=== PATIENT | male | born 1955 | race Caucasian/White ===

== ENCOUNTER 2017-04-08 11:40 | Inpatient (IN) | payer BC ==
[~2017-04-08] VITALS: Ht 167.6 cm; Wt 63.7 kg
[2017-04-08 11:35] VITALS: BP 115/80
--- NOTE | 2017-04-08 14:32 | Occupational Therapy Eval ---
OT Evaluation-General/PLF Medical Diagnosis Admission Date Apr 08, 2017 at 11:40 Medical Diagnosis: critical illness Onset Date: Feb 11, 2017 Therapy Diagnosis Therapy Diagnosis: Decr ADL, decr activ kris, weakness, decr funct mobility, decr R UE use Precautions Precautions/Isolations: Contact Isolation Referral Physician: Zach Referral Reason: Evaluation/Treatment Medical History Pertinent Medical History: Alcoholism, COPD, CVA, Smoking Additional Medical History Stroke at 29 years old, chronic back pain, skin graft R arm in 1999 Current History AAA with peritonitis, colitis, sepsis, short bowel syndrome, L hemicolectomy, sacroiliitis, anemia, encephalopathy, confusion. Coccyx pressure wound, hx wound vac midline abdomen Reviewed History: Yes Social History Home: Multilevel Current Living Status: Spouse ADL-Prior Level of Function ADL PLOF Comments Pt reported that he was independent with all his basic self care needs prior to illness. he also did work around the house and outside and still drive. 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 Pain reported 4/10 in tailbone area , not described Appearance Alert, cooperative Mental Status/Objective Attachments: Colostomy/Ileostomy, Marquez Catheter Current Glasses/Contacts: Yes Hearing Aids: No Dentures/Partials: Yes Hand Dominance: Right Upper Extremity ROM Bilat AROM grossly WFL Upper Extremity Coordination Impaired R hand Upper Extremity Sensation Pt reported numbness R hand, more so in ring and little fingers Upper Extremity Strength Grossly 4/5 L UE. R UE 4-/5 grossly Edema: No UE edema observed ADL-Treatment ADL-Current Pt was able to transition from supine to sit EOB with SBA but struggled a little to get feet back into bed to supine. Helped with pulling himself up in bed but assist provided to help decrease shear on bottom. He has a colostomy so will not need to do toilet transfer for BMs. he also has a Marquez catheter but hopes it will come out soon. Functional [place] Measure 0=Not Assessed/NA 4=Minimal Assistance 1=Total Assistance 5=Supervision or Setup 2=Maximal Assistance 6=Modified [place] 3=Moderate Assistance 7=Complete IndependenceIRFPAI Quality Coding Scale 6 Independent with activity with or without an assistive device 5 Patient requires set up or clean up by helper. Patient completes activity by themselves 4 Supervision or touching assist (CGA). [place] provide cues , steadying assist 3 The helper provides less than half the effort to complete the activity 2 The helper provides more than half the effort to complete the activity 1 Dependent. The helper does all the effort to complete an activity 7 Patient refused to complete or attempt activity 9 The patient did not perform the activity before the current illness or injury 88 Not attempted due to Medical conditions or safety concerns Eating (FIM): 5 (Pt reported that he has been able to feed himself. He occasionally needs a little help opening packages. he has dentures and needs them to eat some foods. ) Eating (QC): 5 (setup) On/Off Footwear (QC): 3 (He was able to pull slipper socks off but unable to don them or shoes. ) Pt reported that he had already bathed this morning and had clean clothes on. Pt left up in bed, 4 rails up, all needs met. Education OT Patient Education: Purpose of tx/functional activities, Rehab process, Transfer techniques Teaching Recipient: Patient, Family Teaching Methods: Discussion Response to Teaching: Verbalize Understanding OT Short Term Goals Short Term Goals Time Frame: Apr 15, 2017 Grooming(FIM): 5 Lower Body Dressing(FIM): 4 1=Demonstrate adherence to instructed precautions during ADL tasks. 2=Patient will verbalize/demonstrate understanding of assistive devices/ modifications for ADL. 3=Patient will improve strength/tolerance for activity to enable patient to perform ADL's. OT Senior Care Goals Warehouse Unloader Goals Time Frame: May 01, 2017 Eating (FIM): 6 Eating (QC): 6 Groomin Oral Hygiene (QC): 6 Bathing(FIM): 6 Shower/Bathe Self (QC): 6 Upper Body Dressing(FIM): 6 Upper Body Dressing (QC): 6 Lower Body Dressing(FIM): 6 Lower Body Dressing (QC): 6 On/Off Footwear (QC): 6 Toileting(FIM): 6 Toileting Hygiene (QC): 6 Toilet/Commode Transfer(FIM): 6 Toilet/Commode Transfer (QC): 6 Shower Transfer(FIM): 6 Additional Goals: 1-Demonstrate ADL Tasks, 2-Verbalize Understanding, 3- ImproveStrength/Lidia 1=Demonstrate adherence to instructed precautions during ADL tasks. 2=Patient will verbalize/demonstrate understanding of assistive devices/ modifications for ADL. 3=Patient will improve strength/tolerance for activity to enable patient to perform ADL's. OT Education/Plan Problem List/Assessment Assessment: Decreased Activ Tolerance, Decreased UE Strength, Dependent Transfers, Impaired Bed Mobility, Impaired Coordination, Impaired Funct Balance , Impaired Self-Care Skills, Restricted Funct UE ROM Pt would benefit from skilled OT to increase his independence in basic self care to allow him to safely return to his home to live with his and to decrease caregiver burden after multiple surgeries and medical conditions. Discharge Recommendations Plan/Recommendations: Continue POC Treatment Plan/Plan of Care Treatment,Training & Education: Yes Patient would benefit from OT for education, treatment and training to promote independence in ADL's, mobility, safety and/or upper extremity function for ADL' s. Plan of Care: ADL Retraining, Caregiver Training, Functional Mobility, Group Exercise/Act as Ind (education, exercise, funct activities, activ tolerance, funct mobility, sociallization), UE Funct Exercise/Act, UE Neuromus Re-Ed/Coord Treatment Duration: May 01, 2017 Frequency: At least 5 of 7 days/Wk (IRF) Estimated Hrs Per Day: 1.5 hours per day Agreement: Yes Rehab Potential: Good Time/GCodes Start Time: 13:15 Stop Time: 13:55 Total Time Billed (hr/min): 40 Billed Treatment Time visit, 30 minutes evaluation high intensity, 10 minutes ADL ZOE STAPLETON OT Apr 08, 2017 14:32
--- NOTE | 2017-04-08 14:55 | PM&R Post Admission Assessment ---
Post Admission Physician Asses The preadmission screen agrees with the post admission assessment that the patient is a good candidate for inpatient rehabilitation. The patient will have a comprehensive program of inpatient rehabilitation with a goal of maximizing level of functional independence prior to discharge home with spouse. The patient will have PT/OT ninety minutes per day, each discipline, five days a week for 2 weeks for gait, strengthening, conditioning , balance, ADLs, any patient/family/caregiver training as necessary. Speech therapy to do cognitive assessment and treat as indicated. Rehabilitation nursing to assist with bowel, bladder, skin, wound care, medication administration, pain management colostomy care. Pond Worker to assist with discharge planning, community reentry. SCD's for DVT prophylaxis. He appears to be well motivated to participate in three hours of therapy a day. He should be able to tolerate three hours of therapy a day from a medical and surgical standpoint. He should benefit from the three hours of therapy a day. He has a reasonable discharge plan, reasonable discharge rehabilitation goals and a supportive family. He has various comorbidities that need to be closely monitored with medications and treatments adjusted on a daily basis as needed. These include: Wound care Barriers to discharge for this patient who had been independent prior to this are for him to be modified independent to supervision for ADLs and mobility skills prior to discharge home with spouse, so as to lessen the burden of the caregivers. Risks for this patient include: 1. Fall 2. Fracture 3. DVT 4. Pulmonary embolism 5. Wound infection 6. Skin breakdown 7. Contractures 8. Poorly controlled pain 9. Urinary retention 10. UTI 11. Respiratory infection 12. Aspiration Estimated Length of Stay: 17 days Prognosis: Rehab prognosis appears good for goal of discharge home with spouse modified independent to supervision for ADLs and mobility skills. LEISA GEORGE MD Apr 08, 2017 14:55
--- NOTE | 2017-04-08 14:56 | ST Cognitive Linguistic Eval ---
Speech Evaluation-General Medical Diagnosis encephalopathy Onset Date: Feb 11, 2017 Therapy Diagnosis Therapy Diagnosis: Mild Cognitive Impairment/Confusion Precautions Precautions/Isolations: Contact Isolation Referral Referring Physician: Dr. Melchor Serrano Reason for Referral: Evaluation/Treatment Cognitive Evaluation Medical History Pertinent Medical History: Alcoholism, COPD, CVA, Smoking Speech PLF-Current Status Prior Level of Function The patient stated he experienced mild word-finding difficulties prior to his hospitalization, however, believes his word finding difficulties may be worsening. Subjective The patient was recently admitted to [facility] following an aortic aneurysm. The patient greeted the clinician appropriately and was agreeable to participation in the cognitive evaluation. The patient's was present at bedside. Language Eval: Auditory Comprehends Simple Yes/No Ques: Functional Indent/Objects Multiple Brown: Functional Ident/Pics in Multiple Brown: Functional Follows 1-Step Commands: Mild Follows Complex Directions: Mild Follows General Conversations: Mild Language Eval: Verbal Language Completes Spontaneous Greeting: Functional Produces Auto, Serial Info: Functional Imitates Simple Words/Phrases: Functional Word Finding: Moderate Requests Basic Needs: Mild States Basic Personal Info: Mild Expresses Complex Ideas: Moderate Cognitive Patient Orientation The patient was independently oriented to self, location, month, day of week, date, and year. Objective Cognitive Domain Attention: Mild Memory: Mild Problem Solving: Mild Objective Impression The patient displayed mild cognitive impairments, most notably in attention, memory, and orientation. Communication/Social Cognition Comprehension: 3 Expression: 4 Social Interaction: 3 Problem Solvin Memory: 3 Speech Patient Assess Expression of Ideas/Wants: Exhibits (3) Understanding [place] Content: Usually Understands (3) Brief Interview-Mental Status: Yes Repetition of Three Words: Three (3) Temporal Orientation: Year: Correct (3) Temporal Orientation: Month: Accurate within 5 days(2) Temporal Orientation: Day: Correct (1) Recall : Wear to say "Sock": Yes,after cueing (1) Recall : Color: Yes, no cue required (2) Recall : Bed: Yes, no cue required (2) Speech Short Term Goals Short Term Goals Short Term Goals 1. The patient will demonstrate 80% accuracy with structured word-finding tasks. 2. The patient will display 90% accuracy with functional safety problem solving. 3. The patient will recall and demonstrate three functional memory strategies, independently. Time Frame-STG: One Week Speech Assisted Goals Assisted Goals 1. The patient will improve cognitive linguistic function for increased function and safety with ADL's in the least restrictive setting. Time Frame: Two Weeks Comprehension: 4 Expression: 5 Social Interaction: 4 Problem Solvin Memory: 4 Speech-Plan Treatment Plan Speech Therapy Treatment Plan: Continue Plan of Care Continue skilled speech pathology to target functional safety problem solving, recall of orientation information, and word-finding strategies. Treatment Duration: Apr 22, 2017 Frequency: Modified Program (IRF) (Four to five times per week) Estimated Hrs Per Day: .5 hour per day Rehab Potential: Good Safety Risks/Education Teaching Recipient: Patient Teaching Methods: Discussion Response to Teaching: Verbalize Understanding Education Topics Provided: Results, Recommendations, Plan of Care Time Speech Therapy Time In: 13:55 Speech Therapy Time Out: 14:10 Total Billed Time: 15 Billed Treatment Time 1, KATIANA POP Apr 08, 2017 14:56
[2017-04-08] MEDS ORDERED: inSUlin ASPART (NovoLOG) 1 UNIT/0.01 ML (CHARGE PER UNIT) SC SCH (15:00)
--- NOTE | 2017-04-08 15:39 | Physical Therapy Evaluation ---
PT Evaluation-General Medical Diagnosis Admission Date Apr 08, 2017 at 11:40 Medical Diagnosis: encephalopathy Onset Date: Feb 11, 2017 Therapy Diagnosis Therapy Diagnosis: impaired mobility, strength, enduarnce Precautions Precautions/Isolations: Contact Isolation Referral Physician: Zach Reason for Referral: Evaluation/Treatment Medical History Pertinent Medical History: Alcoholism, COPD, CVA, Smoking Additional Medical History right arm weakness, chronic back pain, dissecting AAA, right lower extremity weakness, delirium, septic shock, ischemic colitis, anasarca, volume overload, surg (AAA, colostomy, partial colectomy and left anastomosis, left hemicolectomy , SBR, appendectomy, skin graft) Reviewed History: Yes Social History Home: Multilevel Current Living Status: Spouse Entry Into Home: Stairs With Railing Patient lives with his , he has a downstairs at his home but doesn't have to use it. Patient has a very small step to enter his home. Prior/Core FIM Prior Level of Function Functional [place] Measure 0=Not Assessed/NA 4=Minimal Assistance 1=Total Assistance 5=Supervision or Setup 2=Maximal Assistance 6=Modified [place] 3=Moderate Assistance 7=Complete [place] Bed Mobility: 7 Transfers (B,C,W/C) (FIM): 7 Gait: 7 PT Evaluation-Current Subjective Patient in bed pre tx, agrees to PT, states that he has 8/10 pain in his bottom where he has a wound. Pt/Family Goals to be independent at home Objective Patient Orientation: Person, Place, Situation ROM/Strength ROM Lower Extremities WNL. Patient has decreased dorsiflexion bilaterally but is able to achieve neutral. Strenght Lower Extremities right lower extremity (hip flexion 2/5, knee flexion 2/5, knee extension 2/5, dorsiflexion 0/5), left lower extremity (hip flexion 3-/5, knee flexion 3/5, knee extension 3-/5, dorsiflexion 3/5) Integumentary/Posture Bladder Incontinence: Marquez Cath Neuromuscular (Tone, Coordination, Reflexes) NT Sensory Vision: Functional Hearing: Functional Sensation Right Lower Extremit: Intact Sensation Left Lower Extremity: Intact Sensation Lower Extremities Patient seems to have intact light touch sensation bilaterally in lower extremities but he says he has decreased sensation in his right leg below the knee. Transfers Functional [place] Measure 0=Not Assessed/NA 4=Minimal Assistance 1=Total Assistance 5=Supervision or Setup 2=Maximal Assistance 6=Modified [place] 3=Moderate Assistance 7=Complete IndependenceIRFPAI Quality Coding Scale 6 Independent with activity with or without an assistive device 5 Patient requires set up or clean up by helper. Patient completes activity by themselves 4 Supervision or touching assist (CGA). [place] provide cues , steadying assist 3 The helper provides less than half the effort to complete the activity 2 The helper provides more than half the effort to complete the activity 1 Dependent. The helper does all the effort to complete an activity 7 Patient refused to complete or attempt activity 9 The patient did not perform the activity before the current illness or injury 88 Not attempted due to Medical conditions or safety concerns Transfers (B, C, W/C) (FIM): 2 Scootin Rollin Roll Left to Right (QC): 4 Supine to/from Sit: 5 Sit to/from Stand: 2 bed t/f WC(FIM only if WC use): 2 Sit to Lying (QC): 4 Lying to Sitting/Side of Bed(Q: 4 Sit to Stand (QC): 2 Chair/Yif-rx-Sxsmj Xfer(QC): 2 Patient performs bed mobility with SBA, sit to stand and stand pivot transfer are max assist. Gait Does the Patient Walk?: Yes Mode of Locomotion: Walk Anticipated Mode of Locomotion: Walk Gait (FIM): 1 Walk 10 feet (QC): 88 Walk 50 ft with 2 Turns(QC): 88 Walk 150 ft (QC): 88 Walking 10ft/uneven surface-QC: 88 Distance: 2' Gait Level of Assist: 2 Gait Persons Needed: 1 Gait Assistive Device: Parallel Bars Comments/Gait Description Patient ambulated 2' in the parallel bars with max assist, needs assist to help slide his right foot forward. Wheelchair Training Does the Pt Use a Wheelchair?: Yes Wheelchair (FIM): 4 Distance: 150' Wheelchair Level of Assist: 4 Wheel 50 ft with 2 turns (QC): 3 Wheel 150 ft (QC): 3 Type of Wheelchair: Manual min assist to help around obstacles Stairs If not tested on admit;explain Patient is not able to perform stairs due to lower extremity weakness. Balance Sitting Static: Fair Sitting Dynamic: Fair Standing Static: Poor Standing Dynamic: Poor Picking up an Object (QC): 88 Treatment After evaluation PT co-treated with OT. OT worked on UE positioning during standing, transfers, and sitting balance. PT worked on standing and walking in parallel bars, sitting balance while OT worked with cones in balance, transfers. Assessment/Needs Patient has weakness, impaired mobility, and endurance after lengthy hospital stay. Rehab Potential: Fair PT Short Term Goals Short Term Goals Time Frame: Apr 15, 2017 Transfers (B,C,W/C) (FIM): 3 Gait (FIM): 1 Gait Distance Comment: 10' Gait Level of Assist: 4 Gait Assistive Device: FWW PT Occupational Therapy Co Director Goals Occupational Therapy Co Director Goals PT [facility] Goals Time Frame: Apr 29, 2017 Transfers (B,C,W/C) (FIM): 4 Sit to Lying (QC): 6 Lying-Sitting on Side/Bed(QC): 6 Sit to Stand (QC): 3 Rollin Roll Left to Right (QC): 6 Chair/Pbw-df-Ewvhc Xfer(QC): 3 Car Transfer (QC): 3 Gait (FIM): 1 Distance: 25' Walk 10 feet (QC): 4 Walk 10ft-Uneven Surface(QC): 4 Walk 50ft with 2 Turns (QC): 88 Walk 150 ft (QC): 88 Gait Level of Assist: 4 Gait Assistive Device: FWW Stairs (FIM): 1 # of Steps: 1 1 Step (curb) (QC): 4 PT Plan Problem List Problem List: Activity Tolerance, Functional Strength, Safety, Balance, Gait, Transfer, Bed Mobility, ROM Treatment/Plan Treatment Plan: Continue Plan of Care Treatment Plan: Bed Mobility, Concurrent Therapy, Education, Functional Activity Lidia, Functional Strength, Group Therapy, Gait, Safety, Therapeutic Exercise, Transfers Treatment Duration: Apr 29, 2017 Frequency: At least 5 of 7 days/Wk (IRF) Estimated Hrs Per Day: 1.5 hours per day Patient and/or Family Agrees t: Yes Safety Risks/Education Patient Education: Gait Training, Transfer Techniques, Correct Positioning, W/ C Management, Safety Issues Teaching Recipient: Patient Teaching Methods: Demonstration, Discussion Response to Teaching: Reinforcement Needed Discharge Recommendations Plan Patient will perform bed mobility and transfer training, balance and endurance training, functional strengthening, stair training, gait training, and education , to improve functional mobility and independence at home. Therapy D/C Recommendations: Home w/ Family Support Time/GCodes Time In: 1410 Time Out: 1525 Total Billed Treatment Time: 75 Total Billed Treatment 1 visit EVM 20' WCH 10' NM 15' EX 10' FA 20 Co-treated with OT from [id number] YARIEL GRUBER PT Apr 08, 2017 15:39
--- NOTE | 2017-04-08 15:50 | Occupational Ther Daily Note ---
OT Current Status-Daily Note Subjective Pt seen in gym, agreeable to OT. Pain reported 8/10 in bottom at end of tx, not described. Mental Status/Objective Functional [place] Measure 0=Not Assessed/NA 4=Minimal Assistance 1=Total Assistance 5=Supervision or Setup 2=Maximal Assistance 6=Modified [place] 3=Moderate Assistance 7=Complete [place] ADL-Treatment Functional [place] Measure 0=Not Assessed/NA 4=Minimal Assistance 1=Total Assistance 5=Supervision or Setup 2=Maximal Assistance 6=Modified [place] 3=Moderate Assistance 7=Complete IndependenceIRFPAI Quality Coding Scale 6 Independent with activity with or without an assistive device 5 Patient requires set up or clean up by helper. Patient completes activity by themselves 4 Supervision or touching assist (CGA). [place] provide cues , steadying assist 3 The helper provides less than half the effort to complete the activity 2 The helper provides more than half the effort to complete the activity 1 Dependent. The helper does all the effort to complete an activity 7 Patient refused to complete or attempt activity 9 The patient did not perform the activity before the current illness or injury 88 Not attempted due to Medical conditions or safety concerns Other Treatment co-tx with PT, with OT focusing on UE use and function and PT focusing on LE and transfers. Pt very fatigued and reported he was a 3 pack a day smoker. Decreased activity tolerance and frequent recovery periods needed. pt unable to lock brake on R side of w/c but can do L side brake. Assist with hand placement for transfers. UEs helped a lot with sit to stand and standing in parallel bars. Pt also seated EOB on tx table, using UEs to help with sitting balance. Pt supported balance while OT worked with reaching and using UEs. More difficulty with gross grasp R hand and with some incoordination. Oxyacetylene Burner strength tested: R 27, 26, 26#. L 40, 37, 41#. Pt helped propel self back to room. transferred mod assist w/c to bed, with reaching with R UE for bed. Pt needed a little help to get legs into bed due to pain on bottom. pt left propped on his R side, offloading bottom, supported with pillows, 4 rails up, all needs met. Education OT Patient Education: Modified ADL techniques, Progress toward Goal/Update tx plan, Purpose of tx/functional activities, Rehab process, Transfer techniques Teaching Recipient: Patient Teaching Methods: Demonstration Response to Teaching: Verbalize Understanding, Return Demonstration, Reinforcement Needed OT Short Term Goals Short Term Goals Time Frame: Apr 15, 2017 Grooming(FIM): 5 Lower Body Dressing(FIM): 4 1=Demonstrate adherence to instructed precautions during ADL tasks. 2=Patient will verbalize/demonstrate understanding of assistive devices/ modifications for ADL. 3=Patient will improve strength/tolerance for activity to enable patient to perform ADL's. OT Assisted Goals [employer] Bpm Developer Goals Time Frame: May 01, 2017 Eating (FIM): 6 Eating (QC): 6 Groomin Oral Hygiene (QC): 6 Bathing(FIM): 6 Shower/Bathe Self (QC): 6 Upper Body Dressing(FIM): 6 Upper Body Dressing (QC): 6 Lower Body Dressing(FIM): 6 Lower Body Dressing (QC): 6 On/Off Footwear (QC): 6 Toileting(FIM): 6 Toileting Hygiene (QC): 6 Toilet/Commode Transfer(FIM): 6 Toilet/Commode Transfer (QC): 6 Shower Transfer(FIM): 6 Comprehension(FIM): 4 Expression (FIM): 5 Social Interaction(FIM): 4 Problem Solving(FIM): 4 Memory(FIM): 4 Additional Goals: 1-Demonstrate ADL Tasks, 2-Verbalize Understanding, 3- ImproveStrength/Lidia 1=Demonstrate adherence to instructed precautions during ADL tasks. 2=Patient will verbalize/demonstrate understanding of assistive devices/ modifications for ADL. 3=Patient will improve strength/tolerance for activity to enable patient to perform ADL's. OT Education/Plan Problem List/Assessment Pt would benefit from skilled OT to increase his independence in basic self care to allow him to safely return to his home to live with his and to decrease caregiver burden after multiple surgeries and medical conditions. Discharge Recommendations Plan/Recommendations: Continue POC Treatment Plan/Plan of Care Patient would benefit from OT for education, treatment and training to promote independence in ADL's, mobility, safety and/or upper extremity function for ADL' s. Plan of Care: ADL Retraining, Caregiver Training, Functional Mobility, Group Exercise/Act as Ind (education, exercise, funct activities, activ tolerance, funct mobility, sociallization), UE Funct Exercise/Act, UE Neuromus Re-Ed/Coord Treatment Duration: May 01, 2017 Frequency: At least 5 of 7 days/Wk (IRF) Estimated Hrs Per Day: 1.5 hours per day Agreement: Yes Rehab Potential: Good Time/GCodes Start Time: 14:30 Stop Time: 15:25 Total Time Billed (hr/min): 55 Billed Treatment Time visit, 55 minutes functional activity, co-tx with PT ZOE STAPLETON OT Apr 08, 2017 15:50
[2017-04-08] MEDS: fentaNYL PATCH 50 MCG (DURAGESIC) TD SCH (16:59)
[2017-04-08] MEDS: MAGNESIUM OXIDE (MAG-OX)400 MG TAB PO SCH (17:01)
[2017-04-08] MEDS: HYDROcodone/APAP 10 MG/325 MG (LORTAB) TAB PO PRN (17:01)
--- NOTE | 2017-04-08 17:02 | HISTORY AND PHYSICAL ---
DATE OF SERVICE: CHIEF COMPLAINT: Difficulty with walking. HISTORY OF PRESENT ILLNESS: The patient is a 61-year-old male, who has been independent, who was life flighted to [facility] in [place] from [place] where he presented with severe back pain secondary to a ruptured abdominal aortic aneurysm associated with hypotension. He was taken to the OR emergently for repair of the dissecting abdominal aortic aneurysm and underwent an emergent thrombectomy of the right femoral artery as well. He had a shock and acute kidney injury as a result of this. Postoperatively, he developed low grade fever with hallucinations, which was felt to be possibly due to alcohol withdrawal. He developed postop ileus and septic shock as a consequence of ischemic colitis with perforation of the left colon and he returned to the OR on 02/11/2017 for exploratory laparotomy and lysis of adhesions, resection of the distal jejunum approximately an ileum with left hemicolectomy and low anterior resection of the rectum with mobilization of the splenic flexure and placement of the abdominal wound VAC. He went on to have revision surgery with creation of the end-colostomy. The patient is now referred to inpatient rehabilitation unit due to a decline in functional independence. He lives in [place] with his spouse currently requires assistance for his ADLs and mobility skills. PAST MEDICAL HISTORY: Tobacco use and alcohol use.Stroke at age 29 with minimal residual rt sided weakness PAST SURGICAL HISTORY: As per above. ALLERGIES: PENICILLIN. FAMILY HISTORY: Noncontributory. 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 MEDICATIONS: Fentanyl patch 50 mcg daily, Depakote 250 mg p.o. b.i.d., Fluconazole 200 mg p.o. daily for 5 days, furosemide 20 mg p.o. daily, sliding scale insulin regimen, Mag ox 800 mg p.o. b.i.d., Meloxicam 15 mg p.o. daily, Remeron 15 mg p.o. daily, multivitamin 1 tablet p.o. daily, Protonix 1 tablet 40 mg p.o. daily, hydrocodone/APAP 10/325 1 tablet p.o. q.4 hours p.r.n. pain and Zanaflex 4 mg p.o. q.6 h. p.r.n. spasm. PHYSICAL EXAMINATION: GENERAL: Significant for a male appearing his stated age, alert and oriented, in no acute distress. VITAL SIGNS: BP 94/53 Pulse 101 RR 18 02 sats 92% on RA. He is afebrile. HEENT: Vision, speech and hearing grossly intact. No oral lesion is noted. NECK: Supple without mass. HEART: Regular rhythm. LUNGS: Clear. ABDOMEN: Colostomy functioning.Postop wounds healing EXTREMITIES: No lymphedema, no calf tenderness. MUSCULOSKELETAL: The patient has functional passive range of motion in all 4 extremities. NEUROLOGIC: The patient reports some tingling in rt arm and leg. Strength is 0 /5 rt dorsiflexor 2/5 otherwise.Strength Left hip flex and knee ext 3-/5,knee flex na d ankle dorsiflex 3/5 Good minus in the left upper limb and 3+/5 Rt upper limb. Cognition is grossly intact. SKIN: The patient has a pressure sore over the sacrum with dressing applied and open wound abdomen IMPRESSION: 1. 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 2. Ischemic colitis secondary to septic shock, status post colostomy. 3. Borderline hypotension associated with tachycardia 4...HX of stroke at age 29 associated with residual rt sided [place] 5. Chronic back pain 6. ETOH abuse 7. Tobaccoism PLAN: The patient will have a comprehensive program of inpatient rehabilitation with a goal of maximizing level of functional independence prior to discharge home with spouse. The patient will have PT, OT 90 minutes per day in each discipline 5 days a week for gait strengthening and conditioning, balance, ADLs, any patient family caregiver training necessary, any adaptive equipment and training necessary. Speech therapy to do cognitive assessment and treat as indicated. Rehabilitation nursing to assist with bowel, bladder skin wound care, medication, advent, colostomy care. professional services consultant for discharge planning and community reentry. Consult Dr. Olmos, hospitalist service for medical management of this out of town patient. Consult Dr. Rudolph for ongoing wound care. Check admission labs ESTIMATED LENGTH OF STAY: Two to 3 weeks. PROGNOSIS: The prognosis appears good with goals of discharging home with spouse modified independent to supervision for ADLs, mobility skills. DIET: Regular with Ensure t.i.d. CODE STATUS: DNR. Job ID: [id number] DocumentID: [id number] Dictated Date: 04/08/2017 14:52:17 Sticker Operator Date: 04/08/2017 17:02:02 Dictated By: LEISA GEORGE MD MTDD
[2017-04-08 19:10] VITALS: BP 95/56
[2017-04-08] MEDS: DIVALPROEX 250 MG DELAYED RELEASE (DEPAKOTE) TAB PO SCH (20:37)
[2017-04-08] MEDS: MIRTAZAPINE 15 MG (REMERON) TAB PO SCH (20:37)
[2017-04-08] MEDS: DAKIN'S 1/4 STRENGTH (0.125%) 473 ML BTL TOP SCH (21:00)
--- NOTE | 2017-04-08 22:05 | Wound Care Progress Note ---
Subjective Subjective Subjective/Events-last exam 61 year old male with two open midline abdominal wounds and a large unstageable sacral pressure ulcer. The patient underwent repair of ruptured AAA and subsequent bowel resection for necrosis of bowel, perforation, and peritonitis. He has limited mobility of his legs. PFSH: COPD, Hx of tobacco and alcohol. Review of Systems Date Seen by Provider: Apr 08, 2017 Time Seen by Provider: 18:30 General: Fatigue Pulmonary: No Dyspnea Cardiovascular: No: Chest Pain Objective Exam Last Set of Vital Signs Vital Signs Date Time Temp Pulse Resp B/P (MAP) Pulse Ox O2 Delivery O2 Flow Rate FiO2 04/08/17 21:35 Room Air 04/08/17 19:10 99.6 99 16 95/56 96 Capillary Refill : I&O Intake and Output 04/09/17 00:00 Intake Total 750 ml Output Total 600 ml Balance 150 ml Intake Oral 750 ml Output Urine Total 300 ml Stool Total 300 ml Daily Weight Change Yes, Unsure # of pounds General: Alert, Mild Distress Lungs: Normal Air Movement (Midline upper abdomen -- 5.7 x 1.2 x 0.8 cm, 100 % slough; Midline, lower abdomen -- 4.1 x 21.) Skin: Other (Midline upper -- 5.7 x 1.2 x 0.8 cm, 100% slough; midline lower abdomen -- 4.1 x 2.0 x 2.7 cm, 50% slough, 50% granulation; sacrum -- 8.3 x 9.5 x 1.7 cm, 50% slough, 50% granulation. 2 cm Stage 1 of R hip) Assessment/Plan Assessment/Plan Assessment/Plan 1. Open surgical wound x 2, midline abdomen with necrotic bases. 2. Pressure ulcer, sacrum, unstageable. 3. Pressure ulcer, R hip, Stage 1. Plan: Low air loss mattress, frequent repositioning, Dakin's dressings to abdomen. ELIZABETH BOWDEN MD Apr 08, 2017 22:05
[2017-04-09] MEDS: DAKIN'S 1/4 STRENGTH (0.125%) 473 ML BTL TOP SCH ×3 (02:00→21:27)
[2017-04-09 05:08] VITALS: BP 124/72
[2017-04-09] MEDS: PANTOPRAZOLE 40 MG (PROTONIX) TAB PO SCH (06:20)
[2017-04-09] MEDS: MULTIVIT W/MINERALS TAB (THERAGRAN M) PO SCH (06:20)
[2017-04-09] MEDS: MAGNESIUM OXIDE (MAG-OX)400 MG TAB PO SCH ×2 (08:52→17:46)
[2017-04-09] MEDS: FUROSEMIDE 20 MG (LASIX) TAB PO SCH (08:52)
[2017-04-09] MEDS: MELOXICAM 7.5 MG (MOBIC) TABLET PO SCH (08:52)
[2017-04-09] MEDS: fluCOnazole (DIFLUCAN) 100 MG TAB PO SCH (08:52)
[2017-04-09] MEDS: DIVALPROEX 250 MG DELAYED RELEASE (DEPAKOTE) TAB PO SCH ×2 (08:52→21:27)
[2017-04-09] MEDS: HYDROcodone/APAP 10 MG/325 MG (LORTAB) TAB PO PRN ×2 (09:33→17:50)
--- NOTE | 2017-04-09 10:16 | Consultation-Hospitalist ---
HPI History of Present Illness: HPI/Chief Complaint Pt is a 61yoCM with a history of AAA rupture s/p repair with subsequent complications of ischemic colitis necessitating colostomy. He current has 2 open wounds on his abdomen for which Dr Rudolph is consulted. He has been admitted to the hospital at [facility] for roughly 2 months due to this illness and has now been admitted to rehab for rehab due to debility from this critical illness. He denies any complaints at this time and is ordering breakfast. His is at bedside who is also a MANAGER UNIT and expresses concerns about new medicines and previous issues with Lasix and hyponatremia. Otherwise no concerns and ready for rehab. Source: patient, family Date Seen 04/09/17 Attending Physician Melchor Serrano MD PCP [place],Local Physician Referring Physician Zach Date of Admission Apr 08, 2017 at 11:40 am Home Medications & Allergies Home Medications Reviewed patient Home Medication Reconciliation Form Allergies Allergies Coded Allergies Sulfa (Sulfonamide Antibiotics) (Verified Allergy, Unknown, 04/08/17) codeine (Verified Allergy, Unknown, 04/08/17) Uncoded Allergies PCn ( Allergy, Intermediate, 04/08/17) Past [id number] Hx Patient Social History Marrital Status: Smoking Status: Former Smoker (quit 2 months ago) Type Used: Cigarettes Recent Foreign Travel: No Contact w/other who traveled: No Recent Hopitalizations: Yes ([facility]) Recent Infectious Disease Expo: No Surgeries Yes (AAA rupture repair, colostomy) Respiratory Yes Neurological Yes (Encephalopathy) Genitourinary Yes (Retention, Nagel cath in place) Gastrointestinal Yes (Colostomy d/t ischemic colitis) Musculoskeletal Yes (Debility, extreme weakness) Psychosocial History of Psychiatric Problem: No Integumentary History of Skin or Integumenta: Yes (abdomen, sacrum) Skin/Integumentary Disorders: Recent Skin Changes Family Medical History Significant Family History: No Pertinent Family Hx Review of Systems Constitutional: No chills, No fever EENTM: No blurred vision, No double vision, No nose congestion, No throat pain Respiratory: No cough, No dyspnea on exertion, No short of breath Cardiovascular: No chest pain, No edema, No palpitations Gastrointestinal: No abdominal pain, No constipation, No diarrhea, No nausea, No vomiting Genitourinary: No dysuria, No frequency Musculoskeletal: No joint pain, No muscle pain Skin: No lesions, No rash Psychiatric/Neurological: Denies Headache, Denies Numbness, Denies Tingling Physical Exam Physical Exam Vital Signs Vital Sign - Last 12Hours 04/08/17 11:35 Temp 98.1 Pulse 76 Resp 20 B/P (MAP) 115/80 Pulse Ox 99 O2 Delivery Room Air Capillary Refill : General Appearance: No Apparent Distress, Thin HEENT: Moist Mucous Membranes, No Scleral Icterus (L), No Scleral Icterus (R) Neck: Non Tender, Supple Respiratory: Lungs Clear, No Respiratory Distress Cardiovascular: Regular Rate, Rhythm, No Murmur Gastrointestinal: Normal Bowel Sounds, Non Tender, Soft, Other (abd pads in place over wounds, colostomy in place with liquid stool) Genital/Rectal: Other (nagel in place with yellow urine) Extremity: Normal Capillary Refill, No Calf Tenderness, Other (muscle wasting) Neurologic/Psychiatric: Alert, Oriented x3, Normal Mood/Affect Skin: Normal Color, Warm/Dry Assessment/Plan Admission Diagnosis Debility Diagnosis/Problems Diagnosis/Problems (1) Debility Assessment & Plan: management per primary team (2) S/P AAA repair Status: Acute Assessment & Plan: Repaired in [facility] Monitor BPs with goals <130/80 (3) Colostomy in place Status: Chronic Assessment & Plan: s/p ischemic colitis Wound care as appropriate (4) Tobacco dependence Assessment & Plan: Recommended cessation (5) Pressure ulcer Status: Acute Assessment & Plan: Wound care consulted Qualifiers: Qualified Codes: L89.150 - Pressure ulcer of sacral region, unstageable Clinical Quality Measures DVT/VTE Risk/Contraindication: Risk Factor Score Per Nursin RFS Level Per Nursing on Admit: 4+=Very High EDISON CMAARILLO MD Apr 09, 2017 10:16 am
--- NOTE | 2017-04-09 10:50 | Occupational Ther Daily Note ---
OT Current Status-Daily Note Subjective Pt alert, lying in bed. Pt agree to therapy. No c/o pain. Mental Status/Objective Patient Orientation: Person, Place, Time, Situation Functional [place] Measure 0=Not Assessed/NA 4=Minimal Assistance 1=Total Assistance 5=Supervision or Setup 2=Maximal Assistance 6=Modified [place] 3=Moderate Assistance 7=Complete [place] Attachments: Marquez Catheter ADL-Treatment Pt able to go from supine to sitting EOB with min A. Max A for transfer from EOB to w/c. Pt then transferred to shower using BSC and w/c, max A. Pt then required assist to cleanse lower legs and feet. Pt able to complete all other areas with SBA using BSC. Pt then transferred to w/c with max A. Completed grooming sitting in w/c at sink by self. Pt demonstrated to hike pants over hips while lying on bed. Assistance to initiate pants over feet then can pull pants up legs. After therapy, pt lying in bed with call light/phone in reach. Nrsg present in room. Call light/phone in reach. All needs met in room. Functional [place] Measure 0=Not Assessed/NA 4=Minimal Assistance 1=Total Assistance 5=Supervision or Setup 2=Maximal Assistance 6=Modified [place] 3=Moderate Assistance 7=Complete IndependenceIRFPAI Quality Coding Scale 6 Independent with activity with or without an assistive device 5 Patient requires set up or clean up by helper. Patient completes activity by themselves 4 Supervision or touching assist (CGA). [place] provide cues , steadying assist 3 The helper provides less than half the effort to complete the activity 2 The helper provides more than half the effort to complete the activity 1 Dependent. The helper does all the effort to complete an activity 7 Patient refused to complete or attempt activity 9 The patient did not perform the activity before the current illness or injury 88 Not attempted due to Medical conditions or safety concerns Grooming (FIM): 6 Oral Hygiene (QC): 6 Bathing (FIM): 3 Bathing Location: L Arm, R Arm, L Upper Leg, R Upper Leg, Chest, Abdomen, Buttocks, Perineal Area Shower/Bathe Self (QC): 3 Upper Body (FIM): 5 (Set up then pt able to complete.) Upper Body Dressing (QC): 5 Lower Body Dressing (FIM): 3 (pt requires AE to complete lower body dressing.) Lower Body Dressing (QC): 3 On/Off Footwear (QC): 1 Transfers (B, C, W/C) (FIM): 2 Shower Transfer(FIM): 2 OT Short Term Goals Short Term Goals Time Frame: Apr 15, 2017 Grooming(FIM): 5 Lower Body Dressing(FIM): 4 Transfers (B,C,W/C) (FIM): 3 1=Demonstrate adherence to instructed precautions during ADL tasks. 2=Patient will verbalize/demonstrate understanding of assistive devices/ modifications for ADL. 3=Patient will improve strength/tolerance for activity to enable patient to perform ADL's. OT Bale Breaker Operator Goals Nursing Home Goals Time Frame: May 01, 2017 Eating (FIM): 6 Eating (QC): 6 Groomin Oral Hygiene (QC): 6 Bathing(FIM): 6 Shower/Bathe Self (QC): 6 Upper Body Dressing(FIM): 6 Upper Body Dressing (QC): 6 Lower Body Dressing(FIM): 6 Lower Body Dressing (QC): 6 On/Off Footwear (QC): 6 Toileting(FIM): 6 Toileting Hygiene (QC): 6 Toilet/Commode Transfer(FIM): 6 Toilet/Commode Transfer (QC): 6 Shower Transfer(FIM): 6 Comprehension(FIM): 4 Expression (FIM): 5 Social Interaction(FIM): 4 Problem Solving(FIM): 4 Memory(FIM): 4 Additional Goals: 1-Demonstrate ADL Tasks, 2-Verbalize Understanding, 3- ImproveStrength/Lidia 1=Demonstrate adherence to instructed precautions during ADL tasks. 2=Patient will verbalize/demonstrate understanding of assistive devices/ modifications for ADL. 3=Patient will improve strength/tolerance for activity to enable patient to perform ADL's. OT Education/Plan Problem List/Assessment Pt would benefit from skilled OT to increase his independence in basic self care to allow him to safely return to his home to live with his and to decrease caregiver burden after multiple surgeries and medical conditions. Discharge Recommendations Plan/Recommendations: Continue POC Treatment Plan/Plan of Care Patient would benefit from OT for education, treatment and training to promote independence in ADL's, mobility, safety and/or upper extremity function for ADL' s. Plan of Care: ADL Retraining, Caregiver Training, Functional Mobility, Group Exercise/Act as Ind (education, exercise, funct activities, activ tolerance, funct mobility, sociallization), UE Funct Exercise/Act, UE Neuromus Re-Ed/Coord Treatment Duration: May 01, 2017 Frequency: At least 5 of 7 days/Wk (IRF) Estimated Hrs Per Day: 1.5 hours per day Agreement: Yes Rehab Potential: Fair Time/GCodes Start Time: 08:00 Stop Time: 09:00 Total Time Billed (hr/min): 60 Billed Treatment Time 1 visit-ADL 4 (60 min) LUIS ANTONIO FOWLER Apr 09, 2017 10:50
--- NOTE | 2017-04-09 11:21 | Physical Therapy Daily Note ---
PT Daily Note-Current Subjective States that he is doing okay. Pain Numeric Pain Scale: 5-Moderate Pain Location: Soft Tissue Location Body Site: Sacrum Transfers Functional [place] Measure 0=Not Assessed/NA 4=Minimal Assistance 1=Total Assistance 5=Supervision or Setup 2=Maximal Assistance 6=Modified [place] 3=Moderate Assistance 7=Complete IndependenceIRFPAI Quality Coding Scale 6 Independent with activity with or without an assistive device 5 Patient requires set up or clean up by helper. Patient completes activity by themselves 4 Supervision or touching assist (CGA). [place] provide cues , steadying assist 3 The helper provides less than half the effort to complete the activity 2 The helper provides more than half the effort to complete the activity 1 Dependent. The helper does all the effort to complete an activity 7 Patient refused to complete or attempt activity 9 The patient did not perform the activity before the current illness or injury 88 Not attempted due to Medical conditions or safety concerns Transfers (B, C, W/C) (FIM): 3 Sit to/from Stand: 3 Bed to/from Chair: 3 Exercises Supine Ex: LE Protocol Supine Reps: 20 Seated Therapy Exercises: LE Protocol Seated Reps: 20 Assessment Current Status: Excellent Progress The patient fatigued quickly. PT Short Term Goals Short Term Goals Time Frame: Apr 15, 2017 Transfers (B,C,W/C) (FIM): 3 Gait (FIM): 1 Gait Distance Comment: 10' Gait Level of Assist: 4 Gait Assistive Device: FWW Wheelchair Distance: 150' PT Industrial Manufacturing Technician Goals Assisted Goals PT Industrial Manufacturing Technician Goals Time Frame: Apr 29, 2017 Transfers (B,C,W/C) (FIM): 4 Sit to Lying (QC): 6 Lying-Sitting on Side/Bed(QC): 6 Sit to Stand (QC): 3 Rollin Roll Left to Right (QC): 6 Chair/Lle-go-Iuwee Xfer(QC): 3 Car Transfer (QC): 3 Gait (FIM): 1 Distance: 25' Walk 10 feet (QC): 4 Walk 10ft-Uneven Surface(QC): 4 Walk 50ft with 2 Turns (QC): 88 Walk 150 ft (QC): 88 Gait Level of Assist: 4 Gait Assistive Device: FWW Stairs (FIM): 1 # of Steps: 1 1 Step (curb) (QC): 4 PT Plan Treatment/Plan Treatment Plan: Continue Plan of Care Treatment Plan: Bed Mobility, Concurrent Therapy, Education, Functional Activity Lidia, Functional Strength, Group Therapy, Gait, Safety, Therapeutic Exercise, Transfers Treatment Duration: Apr 29, 2017 Frequency: At least 5 of 7 days/Wk (IRF) Estimated Hrs Per Day: 1.5 hours per day Patient and/or Family Agrees t: Yes Time/GCodes Time In: 900 Time Out: 959 Total Billed Treatment Time: 60 Total Billed Treatment 1, EX x 45, FA x 15 ESAU SAMUEL PT Apr 09, 2017 11:21
--- NOTE | 2017-04-09 13:12 | Therapy Group Daily Note ---
Therapy Daily Group Note Patient Education Topic Other List Below (handwashing) Exercises LE Seated Exercise, UE Exercise Other/Notes Pt transported via w/c to therapy group with SBA using FWW for OT/PT group. OT/ PT group consisted of introductions (name and favorite thanksgiving food), socialization, education on handwashing, seated UE/LE exercises, and Thanksgiving Jeopardy. Pt introduced self appropriately and contributed to conversations. Pt was attentive in activities and was able to answer question. Pt was able to complete exercises well and demonstrated good AROM with UE and limited with LE. Pt sat in w/c at sink to wash hands prior to lunch. Pt transorted via w/c to [facility] to participate in thanksgiving lunch. After group, pt lying in bed with call light/phone in reach. All needs met in room. Start Time: 11:30 Stop Time: 12:30 Total Billed Treatment Time: 60 Total Billed Treatment 1 visit-LUIS ANTONIO SHERIDAN Apr 09, 2017 13:12
[2017-04-09 18:45] VITALS: BP 94/53
[2017-04-09] MEDS: MIRTAZAPINE 15 MG (REMERON) TAB PO SCH (21:27)
[2017-04-10] MEDS: HYDROcodone/APAP 10 MG/325 MG (LORTAB) TAB PO PRN ×2 (04:36→18:35)
[2017-04-10 05:00] VITALS: BP 111/63
[2017-04-10 05:24] LABS: BASOPHILS % (AUTO) 0 % (0-10); EOSINOPHILS # (AUTO) 0.3 10^3/uL (0.0-0.3); EOSINOPHILS % (AUTO) 3 % (0-10); LYMPHOCYTES # (AUTO) 1.8 X 10^3 (1.0-4.0); LYMPHOCYTES % (AUTO) 18 % (12-44); MEAN CORPUSCULAR HEMOGLOBIN 31 PG (25-34); MEAN CORPUSCULAR HGB CONC 32 G/DL (32-36); MEAN CORPUSCULAR VOLUME 98 FL (80-99); MEAN PLATELET VOLUME 9.2 FL (7.4-10.4); MONOCYTES # (AUTO) 0.9 X 10^3 (0.0-1.0); MONOCYTES % (AUTO) 9 % (0-12); NEUTROPHILS # (AUTO) 7.1 X 10^3 (1.8-7.8); NEUTROPHILS % (AUTO) 70 % (42-75); PLATELET COUNT 530 10^3/uL (130-400); RED BLOOD COUNT 2.56 10^6/uL (4.35-5.85); RED CELL DISTRIBUTION WIDTH 15.2 % (10.0-14.5)
[2017-04-10 05:33] LABS: ANION GAP 10 MMOL/L (5-14); BLOOD UREA NITROGEN 17 MG/DL (7-18); BUN/CREATININE RATIO 20; CALCIUM 9.9 MG/DL (8.5-10.1); CARBON DIOXIDE 24 MMOL/L (21-32); CHLORIDE 105 MMOL/L (98-107); CREATININE SERUM 0.87 MG/DL (0.60-1.30); GFR ESTIMATED > 60; GLUCOSE 91 MG/DL (70-105); POTASSIUM 4.6 MMOL/L (3.6-5.0); SODIUM 139 MMOL/L (135-145)
[2017-04-10] MEDS: MULTIVIT W/MINERALS TAB (THERAGRAN M) PO SCH (06:17)
[2017-04-10] MEDS: PANTOPRAZOLE 40 MG (PROTONIX) TAB PO SCH (06:17)
[2017-04-10] MEDS: DIVALPROEX 250 MG DELAYED RELEASE (DEPAKOTE) TAB PO SCH ×2 (08:51→22:21)
[2017-04-10] MEDS: MELOXICAM 7.5 MG (MOBIC) TABLET PO SCH (08:51)
[2017-04-10] MEDS: FUROSEMIDE 20 MG (LASIX) TAB PO SCH (08:51)
[2017-04-10] MEDS: MAGNESIUM OXIDE (MAG-OX)400 MG TAB PO SCH ×2 (08:51→18:35)
[2017-04-10] MEDS: fluCOnazole (DIFLUCAN) 100 MG TAB PO SCH (08:52)
[2017-04-10] MEDS: DAKIN'S 1/4 STRENGTH (0.125%) 473 ML BTL TOP SCH ×2 (09:25→22:24)
--- NOTE | 2017-04-10 09:29 | Occupational Ther Daily Note ---
OT Current Status-Daily Note Subjective Pt alert, lying in bed. Pt agreed to therapy. No c/o pain at this time. Mental Status/Objective Patient Orientation: Person, Place, Time, Situation Functional [place] Measure 0=Not Assessed/NA 4=Minimal Assistance 1=Total Assistance 5=Supervision or Setup 2=Maximal Assistance 6=Modified [place] 3=Moderate Assistance 7=Complete [place] Attachments: Colostomy/Ileostomy, Marquez Catheter ADL-Treatment Functional [place] Measure 0=Not Assessed/NA 4=Minimal Assistance 1=Total Assistance 5=Supervision or Setup 2=Maximal Assistance 6=Modified [place] 3=Moderate Assistance 7=Complete IndependenceIRFPAI Quality Coding Scale 6 Independent with activity with or without an assistive device 5 Patient requires set up or clean up by helper. Patient completes activity by themselves 4 Supervision or touching assist (CGA). [place] provide cues , steadying assist 3 The helper provides less than half the effort to complete the activity 2 The helper provides more than half the effort to complete the activity 1 Dependent. The helper does all the effort to complete an activity 7 Patient refused to complete or attempt activity 9 The patient did not perform the activity before the current illness or injury 88 Not attempted due to Medical conditions or safety concerns Eating (FIM): 7 (Pt able to complete open packages/containers by self and use regular utensils to feed self sitting on EOB) Grooming (FIM): 6 (Sitting in w/c at sink, pt able to complete by self then manuever w/c out of bathroom to sit beside bed.) Oral Hygiene (QC): 6 Bathing (FIM): 4 (Using long handle sponge, grabbar, BSC and hand held shower pt able to complete bathing after set up. Pt requires assistance to dry feet and buttocks.) Bathing Location: L Arm, R Arm, L Upper Leg, R Upper Leg, L Lower Leg ( including foot), R Lower Leg (including foot), Chest, Abdomen, Buttocks, Perineal Area Shower/Bathe Self (QC): 3 Upper Body (FIM): 5 (Pt able to complete after set up.) Upper Body Dressing (QC): 5 Lower Body Dressing (FIM): 3 (Assist to don pants and socks over feet then is able to hike pants over hips lying in bed.) Toileting (FIM): 88 Toileting Hygiene (QC): 88 Transfers (B, C, W/C) (FIM): 2 (Max A for stand pivot transfers.) Toilet/Commode Transfer (FIM): 88 Shower Transfer(FIM): 2 (Using BSC, w/c and grabbars pt is able to complete with max A.) After therapy, pt sitting on EOB eating breakfast. Nrsg notified. Call light/ phone in reach. All needs met in room. OT Short Term Goals Short Term Goals Time Frame: Apr 15, 2017 Grooming(FIM): 5 Lower Body Dressing(FIM): 4 Transfers (B,C,W/C) (FIM): 3 1=Demonstrate adherence to instructed precautions during ADL tasks. 2=Patient will verbalize/demonstrate understanding of assistive devices/ modifications for ADL. 3=Patient will improve strength/tolerance for activity to enable patient to perform ADL's. OT Longterm Goals Recruiting Associate Goals Time Frame: May 01, 2017 Eating (FIM): 6 Eating (QC): 6 Groomin Oral Hygiene (QC): 6 Bathing(FIM): 6 Shower/Bathe Self (QC): 6 Upper Body Dressing(FIM): 6 Upper Body Dressing (QC): 6 Lower Body Dressing(FIM): 6 Lower Body Dressing (QC): 6 On/Off Footwear (QC): 6 Toileting(FIM): 6 Toileting Hygiene (QC): 6 Toilet/Commode Transfer(FIM): 6 Toilet/Commode Transfer (QC): 6 Shower Transfer(FIM): 6 Comprehension(FIM): 4 Expression (FIM): 5 Social Interaction(FIM): 4 Problem Solving(FIM): 4 Memory(FIM): 4 Additional Goals: 1-Demonstrate ADL Tasks, 2-Verbalize Understanding, 3- ImproveStrength/Lidia 1=Demonstrate adherence to instructed precautions during ADL tasks. 2=Patient will verbalize/demonstrate understanding of assistive devices/ modifications for ADL. 3=Patient will improve strength/tolerance for activity to enable patient to perform ADL's. OT Education/Plan Problem List/Assessment Pt would benefit from skilled OT to increase his independence in basic self care to allow him to safely return to his home to live with his and to decrease caregiver burden after multiple surgeries and medical conditions. Discharge Recommendations Plan/Recommendations: Continue POC Treatment Plan/Plan of Care Patient would benefit from OT for education, treatment and training to promote independence in ADL's, mobility, safety and/or upper extremity function for ADL' s. Plan of Care: ADL Retraining, Caregiver Training, Functional Mobility, Group Exercise/Act as Ind (education, exercise, funct activities, activ tolerance, funct mobility, sociallization), UE Funct Exercise/Act, UE Neuromus Re-Ed/Coord Treatment Duration: May 01, 2017 Frequency: At least 5 of 7 days/Wk (IRF) Estimated Hrs Per Day: 1.5 hours per day Agreement: Yes Rehab Potential: Fair Time/GCodes Start Time: 07:00 Stop Time: 08:00 Total Time Billed (hr/min): 60 Billed Treatment Time 1 visit-ADL 4 (60 min) LUIS ANTONIO FOWLER Apr 10, 2017 09:29
--- NOTE | 2017-04-10 10:42 | Individualized Plan of Care ---
Individualized Plan of Care Rehab Nursing IPOC Order Admission Date Apr 08, 2017 at 11:40 Current Orders Orders General/Regular (04/08/17 Lunch) Advanced Wound Care Dressing O BID PRN (04/08/17 13:00) Admission-Acute Rehab Unit (04/08/17 14:27) Sequential Compression Device 08,20 (04/08/17 14:27) Sales Operations Manager-Inpt Rehab (04/08/17 14:27) Rehab Nursing Orders-Ipoc (04/08/17 14:27) Physical Therapy Rehab Orders (04/08/17 14:27) Occupational Therapy Rehab Ord (04/08/17 14:27) Speech Therapy Rehab Orders (04/08/17 14:27) Turn And Reposition Q2HR (04/08/17 14:27) Intake & Output ,14, (04/08/17 14:27) Precautions (Aru) (04/08/17 14:27) Weekly Weight (Lbs) WEEK (04/08/17 14:27) Consult Physician (04/08/17 14:32) Divalproex Delay Release Tab (Depakote T (04/08/17 21:00) Fentanyl Patch (Duragesic Patch) (04/08/17 15:00) Fluconazole Tablet (Diflucan Tablet) (04/09/17 09:00) Furosemide Tablet (Lasix Tablet) (04/09/17 09:00) Insulin Aspart (Novolog) (Novolog (Charg (04/08/17 15:00) Magnesium Oxide Tablet (Mag Ox Tablet) (04/08/17 18:00) Meloxicam Tablet (Mobic Tablet) (04/09/17 09:00) Mirtazapine Tablet (Remeron Tablet) (04/08/17 21:00) Therapeutic Multivitamin Tab (Vitamins, (04/09/17 07:00) Pantoprazole Tablet (Protonix Tablet) (04/09/17 07:00) Hydrocodone/Apap 10/325 Tablet (Lortab 1 (04/08/17 15:00) Tizanidine Tablet (Zanaflex Tablet) (04/08/17 15:00) Patient Visit (04/08/17 ) Speech Sound Lang Comp (04/08/17 ) Sodium Hypochlorite 0.125% Tanya (Dakin's (04/08/17 21:00) Consult Physician (04/08/17 19:01) Consult Physician (04/08/17 20:10) Edu Tobacco/Smoking Cessation .prn (04/08/17 20:36) Ambulate TID (04/08/17 20:38) Dvt/Vte Risk - Notifiy Physici (04/08/17 20:38) Sales Operations Manager-Inpt Rehab (04/08/17 21:12) Code/Resuscitation (04/08/17 21:13) Nursing Communication (Patient (04/08/17 22:50) Nursing Communication (Patient Q2HR (04/08/17 22:51) Accucheck Prn ONCE (04/09/17 08:16) Patient Visit (04/08/17 ) Pt Eval Moderate Complexity (04/08/17 ) Wheelchair Mgmt/Propulsn 15min (04/08/17 ) Ex Neuromuscular, Ea 15 Min (04/08/17 ) Exercise Therap, Ea 15 Min (04/08/17 ) Functional Activities, Ea 15 (04/08/17 ) Cbc With Automated Diff (04/10/17 06:00) Basic Metabolic Panel (04/10/17 06:00) Patient Visit (04/09/17 ) Exercise Therap, Ea 15 Min (04/09/17 ) Functional Activities, Ea 15 (04/09/17 ) Patient Visit (04/09/17 ) Rehab Nursing Orders: Bowel Program, Diseage Management, Edu in Press Rel Techn , Hydration Management, Nutrition Management, Pain Management Other Nursing Orders: Marquez catheter care Colostomy care Wound care Intensity of Therapy to be met Patient to be seen: Min.3h per day/5 of 7d PT IPOC Problem List: Activity Tolerance, Functional Strength, Safety, Balance, Gait, Transfer, Bed Mobility, ROM Treatment Plan: Continue Plan of Care Bed Mobility, Concurrent Therapy, Education, Functional Activity Lidia, Functional Strength, Group Therapy, Gait, Safety, Therapeutic Exercise, Transfers Treatment Duration: Apr 29, 2017 Frequency: At least 5 of 7 days/Wk (IRF) Estimated Hrs Per Day: 1.5 hours per day OT IPOC Problems: Decreased Activ Tolerance, Decreased UE Strength, Dependent Transfers , Impaired Bed Mobility, Impaired Coordination, Impaired Funct Balance, Impaired Self-Care Skills, Restricted Funct UE ROM OT Treatment, Training and Edu: Yes OT Problems Pt would benefit from skilled OT to increase his independence in basic self care to allow him to safely return to his home to live with his and to decrease caregiver burden after multiple surgeries and medical conditions. Plan of Care: ADL Retraining, Caregiver Training, Functional Mobility, Group Exercise/Act as Ind (education, exercise, funct activities, activ tolerance, funct mobility, sociallization), UE Funct Exercise/Act, UE Neuromus Re-Ed/Coord Treatment Duration: May 01, 2017 Frequency: At least 5 of 7 days/Wk (IRF) Estimated Hrs Per Day: 1.[address] IPOC Speech Therapy Treatment Plan: Continue Plan of Care Treatment Duration: Apr 22, 2017 Frequency: Modified Program (IRF) (Four to five times per week) Estimated Hrs Per Day: .5 hour per day Sales Operations Manager/Case Mgmt Sales Operations Manager/Case Managemen: Discharge Planning, Patient/Family Counseling Other Services: PLEASE INQUIRE L[place]MARK ABOUT DATES IF HAD FLU OR PNEUMONIA VACCINE Physician IP Medical Issues being managed closely and that require the 24 hour availability of a physician: Wound care Postop anemia associated with postop fever and borderline hypotension chronic back pain Medical Issues: DVT Prophylaxis, Falls Precautions, Fluid/Electrolyte/ Nutrition Balance, Infection Protection, Pain Management, Wound Care, Other ( List) (as per above) Brief Synthesis of Preadmission Screen, Post-Admission Evaluation, and Therapy Evaluations: 61 yo male who had been Independent and retired and living with spouse who had repair of ruptured AAA with post op complication of Ischemic colitis requiring Colostomy.Has has a decline in funtional [place] and referred to IRU for ongoing care and therapies.Currently has fever associated with tachycardia and borderline hypotension with a HGB of 7.9 Being followed by Hospitalist service.computer help desk specialist has seen patient as well.PMH significant for Chronic back pain as weell as a stroke at the age of 29. Also Tobacco and Etoh abuse. Medical Prognosis: Fair Patients family requests DNR Anticipated Length of Stay: 05/01/17 Rehab Goals Modified Independent to supervsion for adls and mobility skills Anticipated discharge destinat: Home with family and [facility] LEISA GEORGE MD Apr 10, 2017 10:42
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
--- NOTE | 2017-04-10 11:45 | Occupational Ther Daily Note ---
OT Current Status-Daily Note Subjective Pt alert, sitting in w/c. Pt agreed to therapy. Pt was very upset about his memory issues. No c/o pain at this time. Mental Status/Objective Patient Orientation: Person, Place, Time, Situation Functional [place] Measure 0=Not Assessed/NA 4=Minimal Assistance 1=Total Assistance 5=Supervision or Setup 2=Maximal Assistance 6=Modified [place] 3=Moderate Assistance 7=Complete [place] Attachments: Colostomy/Ileostomy, Marquez Catheter ADL-Treatment Functional [place] Measure 0=Not Assessed/NA 4=Minimal Assistance 1=Total Assistance 5=Supervision or Setup 2=Maximal Assistance 6=Modified [place] 3=Moderate Assistance 7=Complete IndependenceIRFPAI Quality Coding Scale 6 Independent with activity with or without an assistive device 5 Patient requires set up or clean up by helper. Patient completes activity by themselves 4 Supervision or touching assist (CGA). [place] provide cues , steadying assist 3 The helper provides less than half the effort to complete the activity 2 The helper provides more than half the effort to complete the activity 1 Dependent. The helper does all the effort to complete an activity 7 Patient refused to complete or attempt activity 9 The patient did not perform the activity before the current illness or injury 88 Not attempted due to Medical conditions or safety concerns On/Off Footwear (QC): 2 Other Treatment Introduced pt to AE for lower body dressing. Pt was educated on equipment then discussed for comprehension. Pt required assistance using AE with donning/ doffing socks and shoes. Pt had demonstrated difficulty with using AE due to decreased strength. Pt was reassured that with strengthening and use it would get easier. Pt then demonstrated ability to maneuver w/c throughout room without difficulty. After therapy, pt sitting in w/c with call light/phone in reach. All needs met in room. OT Short Term Goals Short Term Goals Time Frame: Apr 15, 2017 Grooming(FIM): 5 Lower Body Dressing(FIM): 4 Transfers (B,C,W/C) (FIM): 3 1=Demonstrate adherence to instructed precautions during ADL tasks. 2=Patient will verbalize/demonstrate understanding of assistive devices/ modifications for ADL. 3=Patient will improve strength/tolerance for activity to enable patient to perform ADL's. OT Retirement Goals Retirement Goals Time Frame: May 01, 2017 Eating (FIM): 6 Eating (QC): 6 Groomin Oral Hygiene (QC): 6 Bathing(FIM): 6 Shower/Bathe Self (QC): 6 Upper Body Dressing(FIM): 6 Upper Body Dressing (QC): 6 Lower Body Dressing(FIM): 6 Lower Body Dressing (QC): 6 On/Off Footwear (QC): 6 Toileting(FIM): 6 Toileting Hygiene (QC): 6 Toilet/Commode Transfer(FIM): 6 Toilet/Commode Transfer (QC): 6 Shower Transfer(FIM): 6 Comprehension(FIM): 4 Expression (FIM): 5 Social Interaction(FIM): 4 Problem Solving(FIM): 4 Memory(FIM): 4 Additional Goals: 1-Demonstrate ADL Tasks, 2-Verbalize Understanding, 3- ImproveStrength/Lidia 1=Demonstrate adherence to instructed precautions during ADL tasks. 2=Patient will verbalize/demonstrate understanding of assistive devices/ modifications for ADL. 3=Patient will improve strength/tolerance for activity to enable patient to perform ADL's. OT Education/Plan Problem List/Assessment Pt would benefit from skilled OT to increase his independence in basic self care to allow him to safely return to his home to live with his and to decrease caregiver burden after multiple surgeries and medical conditions. Discharge Recommendations Plan/Recommendations: Continue POC Treatment Plan/Plan of Care Patient would benefit from OT for education, treatment and training to promote independence in ADL's, mobility, safety and/or upper extremity function for ADL' s. Plan of Care: ADL Retraining, Caregiver Training, Functional Mobility, Group Exercise/Act as Ind (education, exercise, funct activities, activ tolerance, funct mobility, sociallization), UE Funct Exercise/Act, UE Neuromus Re-Ed/Coord Treatment Duration: May 01, 2017 Frequency: At least 5 of 7 days/Wk (IRF) Estimated Hrs Per Day: 1.5 hours per day Agreement: Yes Rehab Potential: Fair Time/GCodes Start Time: 11:00 Stop Time: 11:30 Total Time Billed (hr/min): 30 Billed Treatment Time 1 visit-FA 2 (30 min) LUIS ANTONIO FOWLER Apr 10, 2017 11:45
[2017-04-10] MEDS ORDERED: TIZA4TAB3 PO (12:57)
[2017-04-10] MEDS ORDERED: INSU100V16 SQ (12:57)
[2017-04-10] MEDS ORDERED: MAGN400T6 PO (12:57)
[2017-04-10] MEDS ORDERED: DIVA250T12 PO (12:57)
[2017-04-10] MEDS ORDERED: HYDR-3820 PC (12:57)
[2017-04-10] MEDS ORDERED: PANT40TA3 PO (12:57)
[2017-04-10] MEDS ORDERED: FENT1PAT9 TD (12:57)
[2017-04-10] MEDS ORDERED: MIRT15TA6 PO (12:57)
[2017-04-10] MEDS ORDERED: CHLO473M4 MM (12:57)
[2017-04-10] MEDS ORDERED: MELO7.5T46 PO (12:57)
[2017-04-10] MEDS ORDERED: FURO20TA4 PO (12:57)
[2017-04-10] MEDS ORDERED: FLUC200T5 PO (12:57)
[2017-04-10] MEDS ORDERED: MV-M1TAB2 PO (12:57)
--- NOTE | 2017-04-10 13:04 | Speech Therapy Daily Note ---
Speech Daily Progress Note Subjective Date Seen by Provider: Apr 10, 2017 Time Seen by Provider: 09:15 The patient was seated upright in bed upon entrance. The patient greeted the clinician appropriately and was agreeable to participation in the cognitive treatment session. Objective A standardized cognitive screening was completed on this date with the following results: (MOCA Version One): - Visuospatial/Executive: The patient was unable to complete trail-making or cube copying accurately. The patient was able to draw the contour of a clock and place the numbers in the accurate place, however, was unable to place the time. - Naming: The patient was able to name three of three black and white photographs. - Memory and Delayed Recall: The patient was able to recall four of five items immediately and zero of five items following a five minute delay. - Attention: The patient was able to repeat five digits forward and three digits in reverse and identify a specific letter in a string of letters. The patient was unable to complete serial seven subtraction. - Abstraction: The patient was able to state a similarity between two items. - Orientation: The patient was oriented to month, year, place, and city. The patient was not oriented to date. - Language: The patient was able to repeat two simple phrases, however, was unable to state 11 words which began with the letter "f" in one minute. - The patient displayed an overall score of +19/30 correlating to a mild to moderate cognitive impairment in the areas of memory, attention, executive function, and word finding. Assessment Assessment Current Status: Fair Progress Treatment Plan Continue Plan of Care Communication Comprehension: 3 Expression: 4 Social Cognition Social Interaction: 4 Problem Solvin Memory: 3 Speech Short Term Goals Short Term Goals Short Term Goals 1. The patient will demonstrate 80% accuracy with structured word-finding tasks. 2. The patient will display 90% accuracy with functional safety problem solving. 3. The patient will recall and demonstrate three functional memory strategies, independently. Time Frame-STG: One Week Speech Band Cutting Machine Operator Goals [place] Goals 1. The patient will improve cognitive linguistic function for increased function and safety with ADL's in the least restrictive setting. Time Frame: Two Weeks Comprehension: 4 Expression: 5 Social Interaction: 4 Problem Solvin Memory: 4 Speech-Plan Treatment Plan Speech Therapy Treatment Plan: Continue Plan of Care Continue skilled speech pathology to target functional problem solving and word- finding. Treatment Duration: Apr 22, 2017 Frequency: Modified Program (IRF) (Four to five times per week) Estimated Hrs Per Day: .5 hour per day Rehab Potential: Fair Safety Risks/Education Teaching Recipient: Patient Teaching Methods: Discussion Response to Teaching: Reinforcement Needed Education Topics Provided: Word Finding Strategies Time Speech Therapy Time In: 09:15 Speech Therapy Time Out: 09:45 Total Billed Time: 30 Billed Treatment Time 1OMEGA ELIZ[address]ETH ST Apr 10, 2017 13:04
--- NOTE | 2017-04-10 13:35 | Physical Therapy Daily Note ---
PT Daily Note-Current Subjective Pt. states he did not understand that he should use the call cuellar if he needs anything while he is sitting up. Pain Numeric Pain Scale: 0-No Pain Mental Status Attachments: Colostomy/Ileostomy, Marquez Catheter memory and problem solving issues Transfers Functional [place] Measure 0=Not Assessed/NA 4=Minimal Assistance 1=Total Assistance 5=Supervision or Setup 2=Maximal Assistance 6=Modified [place] 3=Moderate Assistance 7=Complete IndependenceIRFPAI Quality Coding Scale 6 Independent with activity with or without an assistive device 5 Patient requires set up or clean up by helper. Patient completes activity by themselves 4 Supervision or touching assist (CGA). [place] provide cues , steadying assist 3 The helper provides less than half the effort to complete the activity 2 The helper provides more than half the effort to complete the activity 1 Dependent. The helper does all the effort to complete an activity 7 Patient refused to complete or attempt activity 9 The patient did not perform the activity before the current illness or injury 88 Not attempted due to Medical conditions or safety concerns sit to supine and supine to sit Mod I, pt also pushed himself up in the bed indep Exercises Supine Ex: Bridging, Ankle pumps, Quad Set, Rolling, Scooting, Hip abd/add Supine Reps: 15 Treatments this COPRA PROCESSOR explained the scheduling in PT and rehab as well as increasing sitting times etc Assessment Current Status: Good Progress dependent for SPTs PT Short Term Goals Short Term Goals Time Frame: Apr 15, 2017 Transfers (B,C,W/C) (FIM): 3 Gait (FIM): 1 Gait Distance Comment: 10' Gait Level of Assist: 4 Gait Assistive Device: FWW Wheelchair Distance: 150' PT Specifications Writer Goals Alf Goals PT Alf Goals Time Frame: Apr 29, 2017 Transfers (B,C,W/C) (FIM): 4 Sit to Lying (QC): 6 Lying-Sitting on Side/Bed(QC): 6 Sit to Stand (QC): 3 Rollin Roll Left to Right (QC): 6 Chair/Wrv-sd-Aomwh Xfer(QC): 3 Car Transfer (QC): 3 Gait (FIM): 1 Distance: 25' Walk 10 feet (QC): 4 Walk 10ft-Uneven Surface(QC): 4 Walk 50ft with 2 Turns (QC): 88 Walk 150 ft (QC): 88 Gait Level of Assist: 4 Gait Assistive Device: FWW Stairs (FIM): 1 # of Steps: 1 1 Step (curb) (QC): 4 PT Plan Treatment/Plan Treatment Plan: Continue Plan of Care Treatment Plan: Bed Mobility, Concurrent Therapy, Education, Functional Activity Lidia, Functional Strength, Group Therapy, Gait, Safety, Therapeutic Exercise, Transfers Treatment Duration: Apr 29, 2017 Frequency: At least 5 of 7 days/Wk (IRF) Estimated Hrs Per Day: 1.5 hours per day Patient and/or Family Agrees t: Yes Safety Risks/Education Patient Education: Transfer Techniques, Correct Positioning, Disease Process, Safety Issues Teaching Recipient: Patient Teaching Methods: Demonstration, Discussion Response to Teaching: Verbalize Understanding, Return Demonstration, Reinforcement Needed Time/GCodes Time In: 1310 Time Out: 1330 Total Billed Treatment Time: 20 Total Billed Treatment 1,FA20m G Codes Necessary: MOMO Brasher COPRA PROCESSOR Apr 10, 2017 13:35
[2017-04-10 18:00] VITALS: BP 100/58
[2017-04-10 19:58] VITALS: BP 121/72
[2017-04-10] MEDS: MIRTAZAPINE 15 MG (REMERON) TAB PO SCH (22:21)
[2017-04-11 05:24] VITALS: BP 94/57
[2017-04-11] MEDS: PANTOPRAZOLE 40 MG (PROTONIX) TAB PO SCH (06:15)
[2017-04-11] MEDS: MULTIVIT W/MINERALS TAB (THERAGRAN M) PO SCH (06:15)
[2017-04-11] MEDS: MAGNESIUM OXIDE (MAG-OX)400 MG TAB PO SCH ×2 (08:57→17:21)
[2017-04-11] MEDS: fluCOnazole (DIFLUCAN) 100 MG TAB PO SCH (08:57)
[2017-04-11] MEDS: MELOXICAM 7.5 MG (MOBIC) TABLET PO SCH (08:58)
[2017-04-11] MEDS: DIVALPROEX 250 MG DELAYED RELEASE (DEPAKOTE) TAB PO SCH ×2 (08:58→20:11)
[2017-04-11] MEDS: FUROSEMIDE 20 MG (LASIX) TAB PO SCH (08:58)
[2017-04-11] MEDS: HYDROcodone/APAP 10 MG/325 MG (LORTAB) TAB PO PRN ×3 (09:02→18:58)
[2017-04-11] MEDS: DAKIN'S 1/4 STRENGTH (0.125%) 473 ML BTL TOP SCH ×2 (10:54→20:12)
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
[2017-04-11] MEDS: fentaNYL PATCH 50 MCG (DURAGESIC) TD SCH (15:02)
[2017-04-11 18:21] VITALS: BP 99/62
[2017-04-11] MEDS: MIRTAZAPINE 15 MG (REMERON) TAB PO SCH (20:11)
[2017-04-12 06:00] VITALS: BP 113/68
[2017-04-12] MEDS: MULTIVIT W/MINERALS TAB (THERAGRAN M) PO SCH (06:42)
[2017-04-12] MEDS: PANTOPRAZOLE 40 MG (PROTONIX) TAB PO SCH (06:42)
[2017-04-12] MEDS: MAGNESIUM OXIDE (MAG-OX)400 MG TAB PO SCH ×2 (08:33→17:09)
[2017-04-12] MEDS: HYDROcodone/APAP 10 MG/325 MG (LORTAB) TAB PO PRN ×3 (08:34→17:09)
[2017-04-12] MEDS: fluCOnazole (DIFLUCAN) 100 MG TAB PO SCH (08:34)
[2017-04-12] MEDS: DIVALPROEX 250 MG DELAYED RELEASE (DEPAKOTE) TAB PO SCH ×2 (08:34→20:57)
[2017-04-12] MEDS: MELOXICAM 7.5 MG (MOBIC) TABLET PO SCH (08:34)
[2017-04-12] MEDS: FUROSEMIDE 20 MG (LASIX) TAB PO SCH (08:34)
[2017-04-12] MEDS: DAKIN'S 1/4 STRENGTH (0.125%) 473 ML BTL TOP SCH ×2 (08:36→20:58)
[2017-04-12] MEDS ORDERED: NICOTINE 14 MG (NICODERM) PATCH TD ONE (12:47)
[2017-04-12] MEDS: NICOTINE 14 MG (NICODERM) PATCH TD SCH (12:59)
[2017-04-12 17:59] VITALS: BP 108/64
[2017-04-12] MEDS: MIRTAZAPINE 15 MG (REMERON) TAB PO SCH (20:57)
[2017-04-13] MEDS: HYDROcodone/APAP 10 MG/325 MG (LORTAB) TAB PO PRN ×4 (00:09→20:05)
[2017-04-13 04:23] VITALS: BP 132/74
[2017-04-13] MEDS: PANTOPRAZOLE 40 MG (PROTONIX) TAB PO SCH (06:11)
[2017-04-13] MEDS: MULTIVIT W/MINERALS TAB (THERAGRAN M) PO SCH (06:11)
--- NOTE | 2017-04-13 07:59 | Occupational Ther Daily Note ---
OT Current Status-Daily Note Subjective Pt alert, lying in bed. Pt agreed to therapy. No c/o pain. Mental Status/Objective Patient Orientation: Person, Place, Time, Situation Functional [place] Measure 0=Not Assessed/NA 4=Minimal Assistance 1=Total Assistance 5=Supervision or Setup 2=Maximal Assistance 6=Modified [place] 3=Moderate Assistance 7=Complete [place] Attachments: Colostomy/Ileostomy, Marquez Catheter ADL-Treatment With HOB raised, pt able to go from supine to sitting EOB. Pt transferred from EOB to w/c with mod A for stand pivot transfer. Pt then maneuvered w/c into bathroom to transfer to shower by self. Mod A for stand pivot transfer to shower using shower bench and grabbars. Pt stood in shower with grabbars and mod A to hike pants down over hips. Pt's R foot slid forward 4" to wall, pt stated that his toes hurt after, reported to nrsg. Pt then was able to complete shower sitting on bench using grabbar, hand held shower and long handle sponge. Pt transferred back w/c with min A then maneuvered w/c to sink and completed grooming by self. After set up, pt able to don shirt and socks ( AE). Did not don pants due to nrsg needing to change dressing on buttocks. After therapy, pt lying on bed with call light/phone in reach. All needs met in room. Functional [place] Measure 0=Not Assessed/NA 4=Minimal Assistance 1=Total Assistance 5=Supervision or Setup 2=Maximal Assistance 6=Modified [place] 3=Moderate Assistance 7=Complete IndependenceIRFPAI Quality Coding Scale 6 Independent with activity with or without an assistive device 5 Patient requires set up or clean up by helper. Patient completes activity by themselves 4 Supervision or touching assist (CGA). [place] provide cues , steadying assist 3 The helper provides less than half the effort to complete the activity 2 The helper provides more than half the effort to complete the activity 1 Dependent. The helper does all the effort to complete an activity 7 Patient refused to complete or attempt activity 9 The patient did not perform the activity before the current illness or injury 88 Not attempted due to Medical conditions or safety concerns Grooming (FIM): 6 Oral Hygiene (QC): 6 Bathing (FIM): 4 (Assist to dry buttocks and feet.) Bathing Location: L Arm, R Arm, L Upper Leg, R Upper Leg, L Lower Leg ( including foot), R Lower Leg (including foot), Chest, Abdomen, Buttocks, Perineal Area Shower/Bathe Self (QC): 3 Upper Body (FIM): 5 Upper Body Dressing (QC): 5 Transfers (B, C, W/C) (FIM): 3 Shower Transfer(FIM): 3 OT Short Term Goals Short Term Goals Time Frame: Apr 15, 2017 Grooming(FIM): 5 Lower Body Dressing(FIM): 4 Transfers (B,C,W/C) (FIM): 3 1=Demonstrate adherence to instructed precautions during ADL tasks. 2=Patient will verbalize/demonstrate understanding of assistive devices/ modifications for ADL. 3=Patient will improve strength/tolerance for activity to enable patient to perform ADL's. OT Penitentiary Goals Penitentiary Goals Time Frame: May 01, 2017 Eating (FIM): 6 Eating (QC): 6 Groomin Oral Hygiene (QC): 6 Bathing(FIM): 6 Shower/Bathe Self (QC): 6 Upper Body Dressing(FIM): 6 Upper Body Dressing (QC): 6 Lower Body Dressing(FIM): 6 Lower Body Dressing (QC): 6 On/Off Footwear (QC): 6 Toileting(FIM): 6 Toileting Hygiene (QC): 6 Toilet/Commode Transfer(FIM): 6 Toilet/Commode Transfer (QC): 6 Shower Transfer(FIM): 6 Comprehension(FIM): 4 Expression (FIM): 5 Social Interaction(FIM): 4 Problem Solving(FIM): 4 Memory(FIM): 4 Additional Goals: 1-Demonstrate ADL Tasks, 2-Verbalize Understanding, 3- ImproveStrength/Lidia 1=Demonstrate adherence to instructed precautions during ADL tasks. 2=Patient will verbalize/demonstrate understanding of assistive devices/ modifications for ADL. 3=Patient will improve strength/tolerance for activity to enable patient to perform ADL's. OT Education/Plan Problem List/Assessment Pt would benefit from skilled OT to increase his independence in basic self care to allow him to safely return to his home to live with his and to decrease caregiver burden after multiple surgeries and medical conditions. Discharge Recommendations Plan/Recommendations: Continue POC Treatment Plan/Plan of Care Patient would benefit from OT for education, treatment and training to promote independence in ADL's, mobility, safety and/or upper extremity function for ADL' s. Plan of Care: ADL Retraining, Caregiver Training, Functional Mobility, Group Exercise/Act as Ind (education, exercise, funct activities, activ tolerance, funct mobility, sociallization), UE Funct Exercise/Act, UE Neuromus Re-Ed/Coord Treatment Duration: May 01, 2017 Frequency: At least 5 of 7 days/Wk (IRF) Estimated Hrs Per Day: 1.5 hours per day Agreement: Yes Rehab Potential: Fair Time/GCodes Start Time: 07:00 Stop Time: 08:00 Total Time Billed (hr/min): 60 Billed Treatment Time 1 visit-ADL 4 (60 min) LUIS ANTONIO FOWLER Apr 13, 2017 07:59
[2017-04-13] MEDS: DIVALPROEX 250 MG DELAYED RELEASE (DEPAKOTE) TAB PO SCH ×2 (08:57→20:04)
[2017-04-13] MEDS: NICOTINE 14 MG (NICODERM) PATCH TD SCH (08:57)
[2017-04-13] MEDS: MAGNESIUM OXIDE (MAG-OX)400 MG TAB PO SCH ×2 (08:57→18:58)
[2017-04-13] MEDS: NICOTINE PATCH REMOVAL TP SCH (08:59)
[2017-04-13] MEDS: FUROSEMIDE 20 MG (LASIX) TAB PO SCH (08:59)
[2017-04-13] MEDS: MELOXICAM 7.5 MG (MOBIC) TABLET PO SCH (08:59)
[2017-04-13] MEDS: DAKIN'S 1/4 STRENGTH (0.125%) 473 ML BTL TOP SCH ×2 (09:00→20:04)
--- NOTE | 2017-04-13 10:46 | Speech Therapy Daily Note ---
Speech Daily Progress Note Subjective Date Seen by Provider: Apr 13, 2017 Time Seen by Provider: 09:00 The patient was laying in bed upon entrance. The patient greeted the clinician appropriately and was agreeable to participation in the cognitive treatment session. Objective Assessment of Language Related Activities (NA) were introduced and initiated on this date. The following are the patient's results: - Telling Time: The patient demonstrated 100% accuracy with telling time on an analog clock with mild clinician verbal cueing. - Daily Math Problems: The patient displayed moderate difficulty with solving familiar math problems. Problems included bill calculation, change calculation, time additions, and recipes. The patient displayed less than 50% accuracy. Orientation: The patient was independently oriented to month, year, day of week , and city. Assessment Assessment Current Status: Fair Progress Treatment Plan Continue Plan of Care Communication Comprehension: 4 Expression: 4 Social Cognition Social Interaction: 4 Problem Solvin Memory: 4 Speech Short Term Goals Short Term Goals Short Term Goals 1. The patient will demonstrate 80% accuracy with structured word-finding tasks. 2. The patient will display 90% accuracy with functional safety problem solving. 3. The patient will recall and demonstrate three functional memory strategies, independently. Time Frame-STG: One Week Speech Group Home Goals [employer] Supervisor Goals 1. The patient will improve cognitive linguistic function for increased function and safety with ADL's in the least restrictive setting. Time Frame: Two Weeks Comprehension: 4 Expression: 5 Social Interaction: 4 Problem Solvin Memory: 4 Speech-Plan Treatment Plan Speech Therapy Treatment Plan: Continue Plan of Care Continue skilled speech pathology to target functional problem solving and memory. Treatment Duration: Apr 22, 2017 Frequency: Modified Program (IRF) (Four to five times per week) Estimated Hrs Per Day: .5 hour per day Rehab Potential: Fair Safety Risks/Education Teaching Recipient: Patient Teaching Methods: Discussion Response to Teaching: Verbalize Understanding Education Topics Provided: Orientation Strategies Time Speech Therapy Time In: 09:00 Speech Therapy Time Out: 09:30 Total Billed Time: 30 Billed Treatment Time OMEGA Kelly ELIZABETH ST Apr 13, 2017 10:46
--- NOTE | 2017-04-13 10:48 | Physical Therapy Daily Note ---
PT Daily Note-Current Subjective Patient in bed pre tx, agrees to PT, has pain of 7/10 on his bottom. Appearance Patient BTB post tx, has nurse call, phone, tray, all needs met. Mental Status Patient Orientation: Normal For Age Attachments: Marquez Catheter Transfers Functional [place] Measure 0=Not Assessed/NA 4=Minimal Assistance 1=Total Assistance 5=Supervision or Setup 2=Maximal Assistance 6=Modified [place] 3=Moderate Assistance 7=Complete IndependenceIRFPAI Quality Coding Scale 6 Independent with activity with or without an assistive device 5 Patient requires set up or clean up by helper. Patient completes activity by themselves 4 Supervision or touching assist (CGA). [place] provide cues , steadying assist 3 The helper provides less than half the effort to complete the activity 2 The helper provides more than half the effort to complete the activity 1 Dependent. The helper does all the effort to complete an activity 7 Patient refused to complete or attempt activity 9 The patient did not perform the activity before the current illness or injury 88 Not attempted due to Medical conditions or safety concerns Transfers (B, C, W/C) (FIM): 2 Scootin Rollin Supine to/from Sit: 5 Sit to/from Stand: 2 Bed to/from Chair: 2 Patient has some difficulty with supine <-> sit but he can do it with SBA. Gait Training Gait (FIM): 1 Distance: 8'x3 Gait Level of Assist: 4 Gait Persons Needed: 1 Gait Assistive Device: FWW wheelchair follow, tends to scissor right leg and and has right foot drop. Wheelchair Training Wheelchair (FIM): 6 Distance: 150'x2 Type of Wheelchair: Manual Exercises LAQ alternating for 5 min, sit to fretted instruments inspector parallel bars 3 sets of 5 Treatments bed mobility and transfers, ambulation, functional strengthening Assessment Current Status: Good Progress good progress, patient has started walking with a walker today PT Short Term Goals Short Term Goals Time Frame: Apr 15, 2017 Transfers (B,C,W/C) (FIM): 3 Gait (FIM): 1 Gait Distance Comment: 10' Gait Level of Assist: 4 Gait Assistive Device: FWW Wheelchair Distance: 150' PT Prison Goals Prison Goals PT Prison Goals Time Frame: Apr 29, 2017 Transfers (B,C,W/C) (FIM): 4 Sit to Lying (QC): 6 Lying-Sitting on Side/Bed(QC): 6 Sit to Stand (QC): 3 Rollin Roll Left to Right (QC): 6 Chair/Mkk-lk-Lprff Xfer(QC): 3 Car Transfer (QC): 3 Gait (FIM): 1 Distance: 25' Walk 10 feet (QC): 4 Walk 10ft-Uneven Surface(QC): 4 Walk 50ft with 2 Turns (QC): 88 Walk 150 ft (QC): 88 Gait Level of Assist: 4 Gait Assistive Device: FWW Stairs (FIM): 1 # of Steps: 1 1 Step (curb) (QC): 4 PT Plan Problem List Problem List: Activity Tolerance, Functional Strength, Safety, Balance, Gait, Transfer, Bed Mobility, ROM Treatment/Plan Treatment Plan: Continue Plan of Care Treatment Plan: Bed Mobility, Concurrent Therapy, Education, Functional Activity Lidia, Functional Strength, Group Therapy, Gait, Safety, Therapeutic Exercise, Transfers Treatment Duration: Apr 29, 2017 Frequency: At least 5 of 7 days/Wk (IRF) Estimated Hrs Per Day: 1.5 hours per day Patient and/or Family Agrees t: Yes Safety Risks/Education Patient Education: Gait Training, Transfer Techniques, Correct Positioning, Safety Issues Teaching Recipient: Patient Teaching Methods: Demonstration, Discussion Response to Teaching: Reinforcement Needed Time/GCodes Time In: 945 Time Out: 1045 Total Billed Treatment Time: 60 Total Billed Treatment 1 visit [facility] 10' GT 30' EX 20'' YARIEL GRUBER PT Apr 13, 2017 10:48
--- NOTE | 2017-04-13 13:51 | Occupational Ther Daily Note ---
OT Current Status-Daily Note Subjective Pt alert, lying in bed. Pt agreed to therapy. Pt c/o pain, 8/10, reported to nrsg and nrsg gave pain meds. Mental Status/Objective Patient Orientation: Person, Place, Time, Situation Functional [place] Measure 0=Not Assessed/NA 4=Minimal Assistance 1=Total Assistance 5=Supervision or Setup 2=Maximal Assistance 6=Modified [place] 3=Moderate Assistance 7=Complete [place] ADL-Treatment Pt was able to go from supine to sitting EOB with HOB raised by self. Min A for stand pivot transfer from EOB to w/c. Pt then completed UE exercising by maneuvering w/c throughout hospital up inclines and over rough areas. Pt stated that he was fatiguing and needed a break prior to getting back to ARU. After therapy, PT took over care. All needs met in room. Functional [place] Measure 0=Not Assessed/NA 4=Minimal Assistance 1=Total Assistance 5=Supervision or Setup 2=Maximal Assistance 6=Modified [place] 3=Moderate Assistance 7=Complete IndependenceIRFPAI Quality Coding Scale 6 Independent with activity with or without an assistive device 5 Patient requires set up or clean up by helper. Patient completes activity by themselves 4 Supervision or touching assist (CGA). [place] provide cues , steadying assist 3 The helper provides less than half the effort to complete the activity 2 The helper provides more than half the effort to complete the activity 1 Dependent. The helper does all the effort to complete an activity 7 Patient refused to complete or attempt activity 9 The patient did not perform the activity before the current illness or injury 88 Not attempted due to Medical conditions or safety concerns OT Short Term Goals Short Term Goals Time Frame: Apr 15, 2017 Grooming(FIM): 5 Lower Body Dressing(FIM): 4 Transfers (B,C,W/C) (FIM): 3 1=Demonstrate adherence to instructed precautions during ADL tasks. 2=Patient will verbalize/demonstrate understanding of assistive devices/ modifications for ADL. 3=Patient will improve strength/tolerance for activity to enable patient to perform ADL's. OT Penitentiary Goals Penitentiary Goals Time Frame: May 01, 2017 Eating (FIM): 6 Eating (QC): 6 Groomin Oral Hygiene (QC): 6 Bathing(FIM): 6 Shower/Bathe Self (QC): 6 Upper Body Dressing(FIM): 6 Upper Body Dressing (QC): 6 Lower Body Dressing(FIM): 6 Lower Body Dressing (QC): 6 On/Off Footwear (QC): 6 Toileting(FIM): 6 Toileting Hygiene (QC): 6 Toilet/Commode Transfer(FIM): 6 Toilet/Commode Transfer (QC): 6 Shower Transfer(FIM): 6 Comprehension(FIM): 4 Expression (FIM): 5 Social Interaction(FIM): 4 Problem Solving(FIM): 4 Memory(FIM): 4 Additional Goals: 1-Demonstrate ADL Tasks, 2-Verbalize Understanding, 3- ImproveStrength/Lidia 1=Demonstrate adherence to instructed precautions during ADL tasks. 2=Patient will verbalize/demonstrate understanding of assistive devices/ modifications for ADL. 3=Patient will improve strength/tolerance for activity to enable patient to perform ADL's. OT Education/Plan Problem List/Assessment Pt would benefit from skilled OT to increase his independence in basic self care to allow him to safely return to his home to live with his and to decrease caregiver burden after multiple surgeries and medical conditions. Discharge Recommendations Plan/Recommendations: Continue POC Treatment Plan/Plan of Care Patient would benefit from OT for education, treatment and training to promote independence in ADL's, mobility, safety and/or upper extremity function for ADL' s. Plan of Care: ADL Retraining, Caregiver Training, Functional Mobility, Group Exercise/Act as Ind (education, exercise, funct activities, activ tolerance, funct mobility, sociallization), UE Funct Exercise/Act, UE Neuromus Re-Ed/Coord Treatment Duration: May 01, 2017 Frequency: At least 5 of 7 days/Wk (IRF) Estimated Hrs Per Day: 1.5 hours per day Agreement: Yes Rehab Potential: Fair Time/GCodes Start Time: 13:00 Stop Time: 13:30 Total Time Billed (hr/min): 30 Billed Treatment Time 1 visit-FA 1 (10 min) EX 1 (20 min) LUIS ANTONIO FOWLER Apr 13, 2017 13:51
--- NOTE | 2017-04-13 14:44 | Physical Therapy Daily Note ---
PT Daily Note-Current Subjective Agreeable to PT. reports, "I could have kissed Nikolay this morning after he helped me walk!" Pt expressed happiness that he walked with a walker this morning. Transfers Functional [place] Measure 0=Not Assessed/NA 4=Minimal Assistance 1=Total Assistance 5=Supervision or Setup 2=Maximal Assistance 6=Modified [place] 3=Moderate Assistance 7=Complete IndependenceIRFPAI Quality Coding Scale 6 Independent with activity with or without an assistive device 5 Patient requires set up or clean up by helper. Patient completes activity by themselves 4 Supervision or touching assist (CGA). [place] provide cues , steadying assist 3 The helper provides less than half the effort to complete the activity 2 The helper provides more than half the effort to complete the activity 1 Dependent. The helper does all the effort to complete an activity 7 Patient refused to complete or attempt activity 9 The patient did not perform the activity before the current illness or injury 88 Not attempted due to Medical conditions or safety concerns Sit to stand with CGA and at times needed min assist to maintain standing. SPT wheelchair to from nu step with min assist; sit to stand at FWW with min assist and min assist to steady him. Pt able to transfer sit to supine with SBA. Gait Training Pt ambulated x 8 ft with FWW with a 45 degree turn with min assist. Slow gait with narrow SOHA, scissored at times. Exercises NuStep Minutes: 12 (to Promote LE strength for functional transfers and gait.) Assessment Current Status: Good Progress Pt's strength is progressing and he is making gains towards established goals. PT Short Term Goals Short Term Goals Time Frame: Apr 15, 2017 Transfers (B,C,W/C) (FIM): 3 (met) Gait (FIM): 1 Gait Distance Comment: 10' Gait Level of Assist: 4 Gait Assistive Device: FWW Wheelchair Distance: 150'x2 PT Assisted Goals Assisted Goals PT Assisted Goals Time Frame: Apr 29, 2017 Transfers (B,C,W/C) (FIM): 4 Sit to Lying (QC): 6 Lying-Sitting on Side/Bed(QC): 6 Sit to Stand (QC): 3 Rollin Roll Left to Right (QC): 6 Chair/Acw-lr-Yyppd Xfer(QC): 3 Car Transfer (QC): 3 Gait (FIM): 1 Distance: 25' Walk 10 feet (QC): 4 Walk 10ft-Uneven Surface(QC): 4 Walk 50ft with 2 Turns (QC): 88 Walk 150 ft (QC): 88 Gait Level of Assist: 4 Gait Assistive Device: FWW Stairs (FIM): 1 # of Steps: 1 1 Step (curb) (QC): 4 PT Plan Problem List Problem List: Activity Tolerance, Functional Strength, Safety, Balance, Gait, Transfer, Bed Mobility Treatment/Plan Treatment Plan: Continue Plan of Care Treatment Plan: Bed Mobility, Concurrent Therapy, Education, Functional Activity Lidia, Functional Strength, Group Therapy, Gait, Safety, Therapeutic Exercise, Transfers Treatment Duration: Apr 29, 2017 Frequency: At least 5 of 7 days/Wk (IRF) Estimated Hrs Per Day: 1.5 hours per day Patient and/or Family Agrees t: Yes Safety Risks/Education Patient Education: Transfer Techniques Teaching Recipient: Patient Teaching Methods: Demonstration, Discussion Response to Teaching: Reinforcement Needed Discharge Recommendations Therapy D/C Recommendations: Physical Therapy Home Care Time/GCodes Time In: 1330 Time Out: 1400 Total Billed Treatment Time: 30 Total Billed Treatment vsiit FA 18 EX 12 LUIS ANTONIO RODRIGUEZ PT Apr 13, 2017 14:44
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
[2017-04-13 18:00] VITALS: BP 120/67
[2017-04-13] MEDS: MIRTAZAPINE 15 MG (REMERON) TAB PO SCH (20:04)
[2017-04-13] MEDS: ZINC OXIDE 16% OINT (BUTT PASTE) 113 GM TUBE TOP PRN (20:06)
--- NOTE | 2017-04-13 20:46 | Wound Care Progress Note ---
Subjective Subjective Subjective/Events-last exam 61 year old male with two open midline abdominal wounds and an unstageable wound of the sacral area. The wounds demonstrate a lot of slough. His care would move forward best with a VAC VeriFlo Cleanse Choice device, allowing for mechanical loosening and removal of necrotic tissue delaying healing of the patient's wounds. Arrangements will be made to provide this advanced wound treatment to this patient, who presents with complicated wounds after a harrowing clinical course. PFSH: No interval change. Review of Systems Date Seen by Provider: Apr 13, 2017 Time Seen by Provider: 18:30 General: Fatigue Pulmonary: No Dyspnea Objective Exam Last Set of Vital Signs Vital Signs Date Time Temp Pulse Resp B/P (MAP) Pulse Ox O2 Delivery O2 Flow Rate FiO2 04/13/17 18:00 99.1 107 18 120/67 99 Room Air Capillary Refill : I&O Intake and Output 04/14/17 00:00 Intake Total 900 ml Output Total 1600 ml Balance -700 ml Intake Oral 900 ml Output Urine Total 925 ml Stool Total 675 ml General: Oriented X3, Mild Distress Lungs: Normal Air Movement Skin: Other (Sup. midline abd. - 5.2 x 1.0 x 0.5 cm, 100% slough; Inf. midline abd. - 3.5 x 2.2 x 1.5 cm, 100% slough; Sacrum - 5.5 x 3.4 x 1.5 cm, 100% slough.) Assessment/Plan Assessment/Plan Assessment/Plan 1. Dehiscence of midline abdominal wound in two places, with resultant open wounds and completely necrotic bases - no evidence of fascial dehiscence at this time. 2. Sacral pressure ulcer, unstageable, present on admission. 3. Debility. Plan: Would be a candidate for VeriFlo device to address the large amount of necrotic material at the wound bases. ELIZABETH BOWDEN MD Apr 13, 2017 20:46
[2017-04-14 05:19] LABS: BASOPHILS % (AUTO) 0 % (0-10); EOSINOPHILS # (AUTO) 0.3 10^3/uL (0.0-0.3); EOSINOPHILS % (AUTO) 3 % (0-10); LYMPHOCYTES # (AUTO) 1.6 X 10^3 (1.0-4.0); LYMPHOCYTES % (AUTO) 20 % (12-44); MEAN CORPUSCULAR HEMOGLOBIN 31 PG (25-34); MEAN CORPUSCULAR HGB CONC 32 G/DL (32-36); MEAN CORPUSCULAR VOLUME 98 FL (80-99); MONOCYTES # (AUTO) 0.8 X 10^3 (0.0-1.0); MONOCYTES % (AUTO) 9 % (0-12); NEUTROPHILS # (AUTO) 5.5 X 10^3 (1.8-7.8); NEUTROPHILS % (AUTO) 67 % (42-75); PLATELET COUNT 537 10^3/uL (130-400); RED BLOOD COUNT 2.07 10^6/uL (4.35-5.85); RED CELL DISTRIBUTION WIDTH 15.2 % (10.0-14.5); WHITE BLOOD COUNT 8.2 10^3/uL (4.3-11.0)
[2017-04-14 05:27] VITALS: BP 116/70
[2017-04-14] MEDS: MULTIVIT W/MINERALS TAB (THERAGRAN M) PO SCH (06:00)
[2017-04-14] MEDS: PANTOPRAZOLE 40 MG (PROTONIX) TAB PO SCH (06:00)
[2017-04-14] MEDS: HYDROcodone/APAP 10 MG/325 MG (LORTAB) TAB PO PRN ×3 (06:03→16:30)
--- NOTE | 2017-04-14 08:05 | PM & R (SOAP) Progress Note ---
Subjective Time Seen by Provider: 08:00 Subjective/Events-last exam Patient was seen in his room this AM.Called by RN this am re HGB 6.5 Patient asymptomatic at this time-Will repat H&H to confirm and check stool for OB and contact Hospitalist re possible transfusion.Viewed sacral pressure sore and midline surgical incision sites with DR Rudolph bedside last evening.Topical care and pressure relief being provided. Review of Systems Musculoskeletal: other (sacral pain) Objective Exam Last Set of Vital Signs Vital Signs Date Time Temp Pulse Resp B/P (MAP) Pulse Ox O2 Delivery O2 Flow Rate FiO2 04/14/17 05:27 99.0 90 18 116/70 99 Room Air Capillary Refill : I&O Intake and Output 04/15/17 00:00 Intake Total 240 ml Output Total 850 ml Balance -610 ml Intake Oral 240 ml Output Urine Total 750 ml Stool Total 100 ml General: Alert, Oriented X3, Cooperative, No Acute Distress, Mild Distress HEENT: Atraumatic, PERRLA, EOMI, Mucous Memb Moist/[place] Neck: Supple, No JVD Lungs: Clear to Auscultation, Normal Air Movement (Midline upper abdomen -- 5.7 x 1.2 x 0.8 cm, 100% slough; Midline, lower abdomen -- 4.1 x 21.) Heart: Regular Rate Abdomen: Normal Bowel Sounds, Soft, No Tenderness, Other (colostomy functioning midline surgicaal sites as per dr rudolph) Skin: Other (Midline upper -- 5.7 x 1.2 x 0.8 cm, 100% slough; midline lower abdomen -- 4.1 x 2.0 x 2.7 cm, 50% slough, 50% granulation; sacrum -- 8.3 x 9.5 x 1.7 cm, 50% slough, 50% granulation. 2 cm Stage 1 of R hip) Neuro: Other (Generalized weakness) Results Lab Laboratory Tests 04/14/17 05:10: White Blood Count 8.2, Red Blood Count 2.07L, Hemoglobin 6.5*L, Hematocrit 20*L , Mean Corpuscular Volume 98, Mean Corpuscular Hemoglobin 31, Mean Corpuscular Hemoglobin Concent 32, Red Cell Distribution Width 15.2H, Platelet Count 537H, Mean Platelet Volume 9.0, Neutrophils (%) (Auto) 67, Lymphocytes (%) (Auto) 20, Monocytes (%) (Auto) 9, Eosinophils (%) (Auto) 3, Basophils (%) (Auto) 0, Neutrophils # (Auto) 5.5, Lymphocytes # (Auto) 1.6, Monocytes # (Auto) 0.8, Eosinophils # (Auto) 0.3, Basophils # (Auto) 0.0 Assessment/Plan Assessment s/p AAA repair OSH Postop ischemic colitis s/p colostomy Sacral pressure sore Postop anemia-worsening Late effects of stroke Plan Continue PT/OT/ST/wound care F/U with DR Rudolph Pain management Team Conference tomorrow 04-15-17 Recheck CBC-done will recheck H&H and check stool for OB and F/U with hospitalist re possible blood transfusion see orders. LEISA GEORGE MD Apr 14, 2017 08:05
[2017-04-14] MEDS: DIVALPROEX 250 MG DELAYED RELEASE (DEPAKOTE) TAB PO SCH ×2 (08:39→21:17)
[2017-04-14] MEDS: MELOXICAM 7.5 MG (MOBIC) TABLET PO SCH (08:39)
[2017-04-14] MEDS: FUROSEMIDE 20 MG (LASIX) TAB PO SCH (08:39)
[2017-04-14] MEDS: MAGNESIUM OXIDE (MAG-OX)400 MG TAB PO SCH ×2 (08:39→17:10)
[2017-04-14] MEDS: NICOTINE 14 MG (NICODERM) PATCH TD SCH (08:40)
[2017-04-14] MEDS: DAKIN'S 1/4 STRENGTH (0.125%) 473 ML BTL TOP SCH ×2 (08:42→21:18)
[2017-04-14] MEDS: NICOTINE PATCH REMOVAL TP SCH (08:42)
--- NOTE | 2017-04-14 10:49 | Occupational Ther Daily Note ---
OT Current Status-Daily Note Subjective Pt alert, sitting in w/c. Pt had low hemoglobin earlier this morning then risen , per nrsg. Pt agreed to therapy. C/o pain, did not rate. Mental Status/Objective Patient Orientation: Person, Place, Time, Situation Functional [place] Measure 0=Not Assessed/NA 4=Minimal Assistance 1=Total Assistance 5=Supervision or Setup 2=Maximal Assistance 6=Modified [place] 3=Moderate Assistance 7=Complete [place] Attachments: Colostomy/Ileostomy, Marquez Catheter ADL-Treatment Functional [place] Measure 0=Not Assessed/NA 4=Minimal Assistance 1=Total Assistance 5=Supervision or Setup 2=Maximal Assistance 6=Modified [place] 3=Moderate Assistance 7=Complete IndependenceIRFPAI Quality Coding Scale 6 Independent with activity with or without an assistive device 5 Patient requires set up or clean up by helper. Patient completes activity by themselves 4 Supervision or touching assist (CGA). [place] provide cues , steadying assist 3 The helper provides less than half the effort to complete the activity 2 The helper provides more than half the effort to complete the activity 1 Dependent. The helper does all the effort to complete an activity 7 Patient refused to complete or attempt activity 9 The patient did not perform the activity before the current illness or injury 88 Not attempted due to Medical conditions or safety concerns Other Treatment Pt maneuvered w/c from room to ARU by self. Completed arm bike for 15 min duration beginning at 15 vasquez resistance then decreased to 10 vasquez resistance. Pt required multiple lengthy recovery breaks during arm bike exercises. Pt then completed resistive clothespins with each hand, 1x. Theraputty task finding items to increase pincer strength. In-hand manipulation with R hand task, physical cues needed to sequence steps initially and gradually pt was able to complete on own. Home Sales Service Professional strength task 15x's each hand. [place] pino exercises without weight for B shldr AROM. Pt then requested to go lay down after therapy before PT. Pt began transfer before set up for safety, mod A for transfer. After therapy, pt lying on side with call light/ phone in reach. All needs met in room. Education OT Patient Education: Exercise program Teaching Recipient: Patient Teaching Methods: Demonstration, Discussion Response to Teaching: Return Demonstration OT Short Term Goals Short Term Goals Time Frame: Apr 15, 2017 Grooming(FIM): 5 Lower Body Dressing(FIM): 4 Transfers (B,C,W/C) (FIM): 3 (met) 1=Demonstrate adherence to instructed precautions during ADL tasks. 2=Patient will verbalize/demonstrate understanding of assistive devices/ modifications for ADL. 3=Patient will improve strength/tolerance for activity to enable patient to perform ADL's. OT Anatomy And Physiology Instructor Goals Anatomy And Physiology Instructor Goals Time Frame: May 01, 2017 Eating (FIM): 6 Eating (QC): 6 Groomin Oral Hygiene (QC): 6 Bathing(FIM): 6 Shower/Bathe Self (QC): 6 Upper Body Dressing(FIM): 6 Upper Body Dressing (QC): 6 Lower Body Dressing(FIM): 6 Lower Body Dressing (QC): 6 On/Off Footwear (QC): 6 Toileting(FIM): 6 Toileting Hygiene (QC): 6 Toilet/Commode Transfer(FIM): 6 Toilet/Commode Transfer (QC): 6 Shower Transfer(FIM): 6 Comprehension(FIM): 4 Expression (FIM): 5 Social Interaction(FIM): 4 Problem Solving(FIM): 4 Memory(FIM): 4 Additional Goals: 1-Demonstrate ADL Tasks, 2-Verbalize Understanding, 3- ImproveStrength/Lidia 1=Demonstrate adherence to instructed precautions during ADL tasks. 2=Patient will verbalize/demonstrate understanding of assistive devices/ modifications for ADL. 3=Patient will improve strength/tolerance for activity to enable patient to perform ADL's. OT Education/Plan Problem List/Assessment Pt would benefit from skilled OT to increase his independence in basic self care to allow him to safely return to his home to live with his and to decrease caregiver burden after multiple surgeries and medical conditions. Discharge Recommendations Plan/Recommendations: Continue POC Treatment Plan/Plan of Care Patient would benefit from OT for education, treatment and training to promote independence in ADL's, mobility, safety and/or upper extremity function for ADL' s. Plan of Care: ADL Retraining, Caregiver Training, Functional Mobility, Group Exercise/Act as Ind (education, exercise, funct activities, activ tolerance, funct mobility, sociallization), UE Funct Exercise/Act, UE Neuromus Re-Ed/Coord Treatment Duration: May 01, 2017 Frequency: At least 5 of 7 days/Wk (IRF) Estimated Hrs Per Day: 1.5 hours per day Agreement: Yes Rehab Potential: Fair Time/GCodes Start Time: :30 Stop Time: 10:30 Total Time Billed (hr/min): 60 Billed Treatment Time 1 visit-FA 1 (10 min) EX 3 (50 min) LUIS ANTONIO FOWLER Apr 14, 2017 10:49
--- NOTE | 2017-04-14 11:25 | Physical Therapy Daily Note ---
PT Daily Note-Current Subjective Patient in bed pre tx, agrees to PT, has pain of 7/10 on his bottom. Patient's pain increased during treatment to 9/10, nurse notified and he got pain meds. Appearance Patient BTB post tx with nurse call, phone, tray, all needs met. Mental Status Patient Orientation: Normal For Age Attachments: Colostomy/Ileostomy, Marquez Catheter Transfers Functional [place] Measure 0=Not Assessed/NA 4=Minimal Assistance 1=Total Assistance 5=Supervision or Setup 2=Maximal Assistance 6=Modified [place] 3=Moderate Assistance 7=Complete IndependenceIRFPAI Quality Coding Scale 6 Independent with activity with or without an assistive device 5 Patient requires set up or clean up by helper. Patient completes activity by themselves 4 Supervision or touching assist (CGA). [place] provide cues , steadying assist 3 The helper provides less than half the effort to complete the activity 2 The helper provides more than half the effort to complete the activity 1 Dependent. The helper does all the effort to complete an activity 7 Patient refused to complete or attempt activity 9 The patient did not perform the activity before the current illness or injury 88 Not attempted due to Medical conditions or safety concerns Transfers (B, C, W/C) (FIM): 3 Scootin Rollin Supine to/from Sit: 6 Sit to/from Stand: 3 Bed to/from Chair: 3 Gait Training Gait (FIM): 1 Distance: 20'x3 Gait Level of Assist: 4 Gait Persons Needed: 1 Gait Assistive Device: FWW wheelchair follow, slow ambulation, no scissoring but still dropfoot on the right side, somewhat retropulsive Wheelchair Training Wheelchair (FIM): 6 Distance: 150'x2 Type of Wheelchair: Manual Exercises Supine Ex: Quad Set, Heel Slides, Straight leg raise Supine Reps: 20 Standing: Heel/toe raises, Mini squats Standing Reps: 10 LAQ alternating for 5 min Treatments bed mobility and transfers, ambulation, functional strengthening Assessment Current Status: Fair Progress improving ambulation, but patient needed many rest breaks both to catch his breath and due to pain in his bottom, patient is able to do a seated pushup to relieve pressure on his bottom PT Short Term Goals Short Term Goals Time Frame: Apr 15, 2017 Transfers (B,C,W/C) (FIM): 3 (met) Gait (FIM): 1 Gait Distance Comment: 10' Gait Level of Assist: 4 Gait Assistive Device: FWW Wheelchair Distance: 150'x2 PT [place] Machine Operator Goals Long-Term Goals PT Long-Term Goals Time Frame: Apr 29, 2017 Transfers (B,C,W/C) (FIM): 4 Sit to Lying (QC): 6 Lying-Sitting on Side/Bed(QC): 6 Sit to Stand (QC): 3 Rollin Roll Left to Right (QC): 6 Chair/Rfj-vn-Toatn Xfer(QC): 3 Car Transfer (QC): 3 Gait (FIM): 1 Distance: 25' Walk 10 feet (QC): 4 Walk 10ft-Uneven Surface(QC): 4 Walk 50ft with 2 Turns (QC): 88 Walk 150 ft (QC): 88 Gait Level of Assist: 4 Gait Assistive Device: FWW Stairs (FIM): 1 # of Steps: 1 1 Step (curb) (QC): 4 PT Plan Problem List Problem List: Activity Tolerance, Functional Strength, Safety, Balance, Gait, Transfer, Bed Mobility, ROM Treatment/Plan Treatment Plan: Continue Plan of Care Treatment Plan: Bed Mobility, Concurrent Therapy, Education, Functional Activity Lidia, Functional Strength, Group Therapy, Gait, Safety, Therapeutic Exercise, Transfers Treatment Duration: Apr 29, 2017 Frequency: At least 5 of 7 days/Wk (IRF) Estimated Hrs Per Day: 1.5 hours per day Patient and/or Family Agrees t: Yes Safety Risks/Education Patient Education: Gait Training, Transfer Techniques, Correct Positioning, W/ C Management, Safety Issues Teaching Recipient: Patient Teaching Methods: Demonstration, Discussion Response to Teaching: Reinforcement Needed Time/GCodes Time In: 1030 Time Out: 1130 Total Billed Treatment Time: 60 Total Billed Treatment 1 visit [facility] 10' EX 20' GT 30' YARIEL GRUBER PT Apr 14, 2017 11:25
[2017-04-14] MEDS: ZINC OXIDE 16% OINT (BUTT PASTE) 113 GM TUBE TOP PRN (11:50)
--- NOTE | 2017-04-14 13:31 | Physical Therapy Daily Note ---
PT Daily Note-Current Subjective Patient in bed pre tx, agrees to PT, has 5/10 pain in his bottom. Appearance Patient back to bed post tx with nurse call, phone, tray, all needs met. Mental Status Patient Orientation: Normal For Age Attachments: Colostomy/Ileostomy Transfers Functional [place] Measure 0=Not Assessed/NA 4=Minimal Assistance 1=Total Assistance 5=Supervision or Setup 2=Maximal Assistance 6=Modified [place] 3=Moderate Assistance 7=Complete IndependenceIRFPAI Quality Coding Scale 6 Independent with activity with or without an assistive device 5 Patient requires set up or clean up by helper. Patient completes activity by themselves 4 Supervision or touching assist (CGA). [place] provide cues , steadying assist 3 The helper provides less than half the effort to complete the activity 2 The helper provides more than half the effort to complete the activity 1 Dependent. The helper does all the effort to complete an activity 7 Patient refused to complete or attempt activity 9 The patient did not perform the activity before the current illness or injury 88 Not attempted due to Medical conditions or safety concerns Transfers (B, C, W/C) (FIM): 3 Scootin Rollin Supine to/from Sit: 6 Sit to/from Stand: 3 Bed to/from Chair: 3 cues for hand placement Gait Training Gait (FIM): 1 Distance: 20'x3 Gait Level of Assist: 4 Gait Persons Needed: 1 Gait Assistive Device: FWW wheelchair follow, right foot drop, min assist, slightly retropulsive Wheelchair Training Wheelchair (FIM): 6 Distance: 150'x2 Type of Wheelchair: Manual Treatments bed mobility and transfers, ambulation, wheelchair mobility Assessment Current Status: Fair Progress patient was very tired today PT Short Term Goals Short Term Goals Time Frame: Apr 15, 2017 Transfers (B,C,W/C) (FIM): 3 (met) Gait (FIM): 1 Gait Distance Comment: 10' Gait Level of Assist: 4 Gait Assistive Device: FWW Wheelchair Distance: 150'x2 PT Hydraulic Hammer Operator Goals Snf Goals PT Hydraulic Hammer Operator Goals Time Frame: Apr 29, 2017 Transfers (B,C,W/C) (FIM): 4 Sit to Lying (QC): 6 Lying-Sitting on Side/Bed(QC): 6 Sit to Stand (QC): 3 Rollin Roll Left to Right (QC): 6 Chair/Qap-qg-Apxex Xfer(QC): 3 Car Transfer (QC): 3 Gait (FIM): 1 Distance: 25' Walk 10 feet (QC): 4 Walk 10ft-Uneven Surface(QC): 4 Walk 50ft with 2 Turns (QC): 88 Walk 150 ft (QC): 88 Gait Level of Assist: 4 Gait Assistive Device: FWW Stairs (FIM): 1 # of Steps: 1 1 Step (curb) (QC): 4 PT Plan Problem List Problem List: Activity Tolerance, Functional Strength, Safety, Balance, Gait, Transfer, Bed Mobility, ROM Treatment/Plan Treatment Plan: Continue Plan of Care Treatment Plan: Bed Mobility, Concurrent Therapy, Education, Functional Activity Lidia, Functional Strength, Group Therapy, Gait, Safety, Therapeutic Exercise, Transfers Treatment Duration: Apr 29, 2017 Frequency: At least 5 of 7 days/Wk (IRF) Estimated Hrs Per Day: 1.5 hours per day Patient and/or Family Agrees t: Yes Safety Risks/Education Patient Education: Gait Training, Transfer Techniques, Correct Positioning, W/ C Management, Safety Issues Teaching Recipient: Patient Teaching Methods: Demonstration, Discussion Response to Teaching: Reinforcement Needed Time/GCodes Time In: 1300 Time Out: 1330 Total Billed Treatment Time: 30 Total Billed Treatment [address] [facility] 10' GT 20' YARIEL GRUBER PT Apr 14, 2017 13:31
--- NOTE | 2017-04-14 13:31 | Speech Therapy Daily Note ---
Speech Daily Progress Note Subjective Date Seen by Provider: Apr 14, 2017 Time Seen by Provider: 09:00 The patient was seated upright in wheelchair upon entrance. The patient greeted the clinician appropriately and was agreeable to participation in the cognitive treatment session. Objective External/Internal Memory Strategies: External and internal memory strategies were initiated on this date. The patient stated he frequently writes down important information and his keeps a calendar with upcoming appointments. The patient does not follow a daily routine and has not had any reason to keep a pill box (the patient reported he did not require any medication prior to hospitalization). The patient stated he often uses visualized to aid in recall of his hand-written notes (internal). The patient was agreeable to purchasing a pill box following discharge. Orientation: The patient remains 100% oriented to self, month, day of week, date , and year. Assessment Assessment Current Status: Fair Progress Treatment Plan Continue Plan of Care Communication Comprehension: 4 Expression: 4 Social Cognition Social Interaction: 4 Problem Solvin Memory: 4 Speech Short Term Goals Short Term Goals Short Term Goals 1. The patient will demonstrate 80% accuracy with structured word-finding tasks. 2. The patient will display 90% accuracy with functional safety problem solving. 3. The patient will recall and demonstrate three functional memory strategies, independently. Time Frame-STG: One Week Speech Speeder Frame Tender Goals Speeder Frame Tender Goals 1. The patient will improve cognitive linguistic function for increased function and safety with ADL's in the least restrictive setting. Time Frame: Two Weeks Comprehension: 4 Expression: 5 Social Interaction: 4 Problem Solvin Memory: 4 Speech-Plan Treatment Plan Speech Therapy Treatment Plan: Continue Plan of Care Continue skilled speech pathology to target functional memory strategies and safety problem solving. Treatment Duration: Apr 22, 2017 Frequency: Modified Program (IRF) (Four to five times per week) Estimated Hrs Per Day: .5 hour per day Rehab Potential: Fair Safety Risks/Education Teaching Recipient: Patient Teaching Methods: Demonstration, Handout, Discussion Response to Teaching: Reinforcement Needed Education Topics Provided: External Memory Strategies Time Speech Therapy Time In: 09:00 Speech Therapy Time Out: 09:30 Total Billed Time: 30 Billed Treatment Time OEMGA [facility] Apr 14, 2017 13:31
--- NOTE | 2017-04-14 14:12 | Occupational Ther Daily Note ---
OT Current Status-Daily Note Subjective Pt alert, lying in bed. Pt agreed to therapy. Pt c/o pain in buttocks, did not rate. Mental Status/Objective Patient Orientation: Person, Place, Time, Situation Functional [place] Measure 0=Not Assessed/NA 4=Minimal Assistance 1=Total Assistance 5=Supervision or Setup 2=Maximal Assistance 6=Modified [place] 3=Moderate Assistance 7=Complete [place] Attachments: Colostomy/Ileostomy, Marquez Catheter ADL-Treatment Pt worked on donning/doffing footwear lying in bed. Pt has decreased balance leaning forward in w/c so unable to complete lower body dressing. Have introduced lower body AE though pt continues to have difficulty lifting R foot off of ground to don clothing over foot. Attempt to work on different positions for lower body dressing. Pt is able to doff socks sitting or lying with dressing stick. Pt dons L sock with sock aid then requires assist for R sock. Will continue to work on efficiently dressing lower body sitting and in supine. After therapy, pt lying in bed with call light/phone in reach. All needs met in room. Functional [place] Measure 0=Not Assessed/NA 4=Minimal Assistance 1=Total Assistance 5=Supervision or Setup 2=Maximal Assistance 6=Modified [place] 3=Moderate Assistance 7=Complete IndependenceIRFPAI Quality Coding Scale 6 Independent with activity with or without an assistive device 5 Patient requires set up or clean up by helper. Patient completes activity by themselves 4 Supervision or touching assist (CGA). [place] provide cues , steadying assist 3 The helper provides less than half the effort to complete the activity 2 The helper provides more than half the effort to complete the activity 1 Dependent. The helper does all the effort to complete an activity 7 Patient refused to complete or attempt activity 9 The patient did not perform the activity before the current illness or injury 88 Not attempted due to Medical conditions or safety concerns OT Short Term Goals Short Term Goals Time Frame: Apr 15, 2017 Grooming(FIM): 5 Lower Body Dressing(FIM): 4 Transfers (B,C,W/C) (FIM): 3 (met) 1=Demonstrate adherence to instructed precautions during ADL tasks. 2=Patient will verbalize/demonstrate understanding of assistive devices/ modifications for ADL. 3=Patient will improve strength/tolerance for activity to enable patient to perform ADL's. OT Snf Goals Snf Goals Time Frame: May 01, 2017 Eating (FIM): 6 Eating (QC): 6 Groomin Oral Hygiene (QC): 6 Bathing(FIM): 6 Shower/Bathe Self (QC): 6 Upper Body Dressing(FIM): 6 Upper Body Dressing (QC): 6 Lower Body Dressing(FIM): 6 Lower Body Dressing (QC): 6 On/Off Footwear (QC): 6 Toileting(FIM): 6 Toileting Hygiene (QC): 6 Toilet/Commode Transfer(FIM): 6 Toilet/Commode Transfer (QC): 6 Shower Transfer(FIM): 6 Comprehension(FIM): 4 Expression (FIM): 5 Social Interaction(FIM): 4 Problem Solving(FIM): 4 Memory(FIM): 4 Additional Goals: 1-Demonstrate ADL Tasks, 2-Verbalize Understanding, 3- ImproveStrength/Lidia 1=Demonstrate adherence to instructed precautions during ADL tasks. 2=Patient will verbalize/demonstrate understanding of assistive devices/ modifications for ADL. 3=Patient will improve strength/tolerance for activity to enable patient to perform ADL's. OT Education/Plan Problem List/Assessment Pt would benefit from skilled OT to increase his independence in basic self care to allow him to safely return to his home to live with his and to decrease caregiver burden after multiple surgeries and medical conditions. Discharge Recommendations Plan/Recommendations: Continue POC Treatment Plan/Plan of Care Patient would benefit from OT for education, treatment and training to promote independence in ADL's, mobility, safety and/or upper extremity function for ADL' s. Plan of Care: ADL Retraining, Caregiver Training, Functional Mobility, Group Exercise/Act as Ind (education, exercise, funct activities, activ tolerance, funct mobility, sociallization), UE Funct Exercise/Act, UE Neuromus Re-Ed/Coord Treatment Duration: May 01, 2017 Frequency: At least 5 of 7 days/Wk (IRF) Estimated Hrs Per Day: 1.5 hours per day Agreement: Yes Rehab Potential: Fair Time/GCodes Start Time: 13:35 Stop Time: 13:50 Total Time Billed (hr/min): 15 Billed Treatment Time 1 visit-FA 1 (15 min) LUIS ANTONIO FOWLER Apr 14, 2017 14:12
[2017-04-14] MEDS: fentaNYL PATCH 50 MCG (DURAGESIC) TD SCH (14:26)
[2017-04-14] MEDS: IRON POLYSAC 150 MG CAP (NIFEREX) PO SCH (16:29)
[2017-04-14 18:51] VITALS: BP 97/61
[2017-04-14] MEDS: MIRTAZAPINE 15 MG (REMERON) TAB PO SCH (21:17)
[2017-04-15 06:00] VITALS: BP 118/71
[2017-04-15] MEDS: MULTIVIT W/MINERALS TAB (THERAGRAN M) PO SCH (06:26)
[2017-04-15] MEDS: IRON POLYSAC 150 MG CAP (NIFEREX) PO SCH ×2 (06:26→17:03)
[2017-04-15] MEDS: PANTOPRAZOLE 40 MG (PROTONIX) TAB PO SCH (06:26)
[2017-04-15] MEDS: NICOTINE 14 MG (NICODERM) PATCH TD SCH (08:49)
[2017-04-15] MEDS: MAGNESIUM OXIDE (MAG-OX)400 MG TAB PO SCH ×2 (08:49→17:03)
[2017-04-15] MEDS: DAKIN'S 1/4 STRENGTH (0.125%) 473 ML BTL TOP SCH ×2 (08:50→20:24)
[2017-04-15] MEDS: NICOTINE PATCH REMOVAL TP SCH (08:50)
[2017-04-15] MEDS: FUROSEMIDE 20 MG (LASIX) TAB PO SCH (08:50)
[2017-04-15] MEDS: DIVALPROEX 250 MG DELAYED RELEASE (DEPAKOTE) TAB PO SCH ×2 (08:50→20:23)
[2017-04-15] MEDS: MELOXICAM 7.5 MG (MOBIC) TABLET PO SCH (08:50)
[2017-04-15] MEDS: HYDROcodone/APAP 10 MG/325 MG (LORTAB) TAB PO PRN ×3 (08:59→20:24)
--- NOTE | 2017-04-15 09:18 | PM & R (SOAP) Progress Note ---
Subjective Time Seen by Provider: 08:10 Subjective/Events-last exam Patient was seen in his room this AM Patient Mod assist for transfers Labs noted HGB stable Stool for OB negative.Marquez to DD Wound care continues under the care of DR Rudolph Review of Systems Musculoskeletal: back pain Objective Exam Last Set of Vital Signs Vital Signs Date Time Temp Pulse Resp B/P (MAP) Pulse Ox O2 Delivery O2 Flow Rate FiO2 04/15/17 06:00 98.6 87 20 118/71 95 Room Air Capillary Refill : I&O Intake and Output 04/16/17 00:00 Intake Total 375 ml Output Total 475 ml Balance -100 ml Intake Oral 375 ml Output Urine Total 475 ml General: Alert, Oriented X3, Cooperative, No Acute Distress, Mild Distress HEENT: Atraumatic, PERRLA, EOMI, Mucous Memb Moist/[place] Neck: Supple, No JVD Lungs: Clear to Auscultation, Normal Air Movement (Midline upper abdomen -- 5.7 x 1.2 x 0.8 cm, 100% slough; Midline, lower abdomen -- 4.1 x 21.) Heart: Regular Rate Abdomen: Normal Bowel Sounds, Soft, No Tenderness, Other (colostomy functioning midline surgicaal sites as per dr rudolph) Skin: Other (Midline upper -- 5.7 x 1.2 x 0.8 cm, 100% slough; midline lower abdomen -- 4.1 x 2.0 x 2.7 cm, 50% slough, 50% granulation; sacrum -- 8.3 x 9.5 x 1.7 cm, 50% slough, 50% granulation. 2 cm Stage 1 of R hip) Neuro: Other (Generalized weakness) Results Lab Laboratory Tests 04/14/17 05:10: White Blood Count 8.2, Red Blood Count 2.07L, Hemoglobin 6.5*L, Hematocrit 20*L , Mean Corpuscular Volume 98, Mean Corpuscular Hemoglobin 31, Mean Corpuscular Hemoglobin Concent 32, Red Cell Distribution Width 15.2H, Platelet Count 537H, Mean Platelet Volume 9.0, Neutrophils (%) (Auto) 67, Lymphocytes (%) (Auto) 20, Monocytes (%) (Auto) 9, Eosinophils (%) (Auto) 3, Basophils (%) (Auto) 0, Neutrophils # (Auto) 5.5, Lymphocytes # (Auto) 1.6, Monocytes # (Auto) 0.8, Eosinophils # (Auto) 0.3, Basophils # (Auto) 0.0 04/14/17 08:11: Hemoglobin 7.7L, Hematocrit 25L 04/14/17 09:05: Stool Occult Blood Immunoassay NEGATIVE Assessment/Plan Assessment s/p AAA repair OSH with open wounds abdominal midline being treated with topical care Postop ischemic colitis s/p colostomy Sacral pressure sore Postop anemia-stable 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
--- NOTE | 2017-04-15 10:04 | Occupational Ther Daily Note ---
OT Current Status-Daily Note Subjective Pt alert, sitting in w/c. Pt agreed to therapy. No c/o pain. Mental Status/Objective Patient Orientation: Person, Place, Time, Situation Functional [place] Measure 0=Not Assessed/NA 4=Minimal Assistance 1=Total Assistance 5=Supervision or Setup 2=Maximal Assistance 6=Modified [place] 3=Moderate Assistance 7=Complete [place] Attachments: Colostomy/Ileostomy, Marquez Catheter ADL-Treatment Functional [place] Measure 0=Not Assessed/NA 4=Minimal Assistance 1=Total Assistance 5=Supervision or Setup 2=Maximal Assistance 6=Modified [place] 3=Moderate Assistance 7=Complete IndependenceIRFPAI Quality Coding Scale 6 Independent with activity with or without an assistive device 5 Patient requires set up or clean up by helper. Patient completes activity by themselves 4 Supervision or touching assist (CGA). [place] provide cues , steadying assist 3 The helper provides less than half the effort to complete the activity 2 The helper provides more than half the effort to complete the activity 1 Dependent. The helper does all the effort to complete an activity 7 Patient refused to complete or attempt activity 9 The patient did not perform the activity before the current illness or injury 88 Not attempted due to Medical conditions or safety concerns Grooming (FIM): 6 (Sitting in w/c at sink, pt able to complete grooming by self.) Oral Hygiene (QC): 6 Bathing (FIM): 5 (Using grabbar, long handle sponge, shower bench and hand held shower pt able to complete with SBA. Pt is able to lean side to side to reach buttocks though with wound dressing applied to buttocks pt is not able to cleanse area.) Bathing Location: L Arm, R Arm, L Upper Leg, R Upper Leg, L Lower Leg ( including foot), R Lower Leg (including foot), Chest, Abdomen, Buttocks, Perineal Area Shower/Bathe Self (QC): 4 Upper Body (FIM): 6 (Pt retrieves clothing via w/c. Pt is able to don/doff by self.) Upper Body Dressing (QC): 6 Lower Body Dressing (FIM): 3 (Pt gets frustrated quickly when donning/doffing pants or socks over feet due to inability to lift R foot enough to slide anything under it. Pt is able to doff pants over hips holding onto grabbars with min A.) Lower Body Dressing (QC): 2 On/Off Footwear (QC): 3 Transfers (B, C, W/C) (FIM): 4 (Min A for stand pivot transfers.) Shower Transfer(FIM): 4 (Using w/c, grabbars and shower bench pt is able to complete with min A.) OT Short Term Goals Short Term Goals Time Frame: Apr 15, 2017 Grooming(FIM): 5 Lower Body Dressing(FIM): 4 Transfers (B,C,W/C) (FIM): 3 (met) 1=Demonstrate adherence to instructed precautions during ADL tasks. 2=Patient will verbalize/demonstrate understanding of assistive devices/ modifications for ADL. 3=Patient will improve strength/tolerance for activity to enable patient to perform ADL's. OT Worm Picker Goals Detention Goals Time Frame: May 01, 2017 Eating (FIM): 6 Eating (QC): 6 Groomin Oral Hygiene (QC): 6 Bathing(FIM): 6 Shower/Bathe Self (QC): 6 Upper Body Dressing(FIM): 6 Upper Body Dressing (QC): 6 Lower Body Dressing(FIM): 6 Lower Body Dressing (QC): 6 On/Off Footwear (QC): 6 Toileting(FIM): 6 Toileting Hygiene (QC): 6 Toilet/Commode Transfer(FIM): 6 Toilet/Commode Transfer (QC): 6 Shower Transfer(FIM): 6 Comprehension(FIM): 4 Expression (FIM): 5 Social Interaction(FIM): 4 Problem Solving(FIM): 4 Memory(FIM): 4 Additional Goals: 1-Demonstrate ADL Tasks, 2-Verbalize Understanding, 3- ImproveStrength/Lidia 1=Demonstrate adherence to instructed precautions during ADL tasks. 2=Patient will verbalize/demonstrate understanding of assistive devices/ modifications for ADL. 3=Patient will improve strength/tolerance for activity to enable patient to perform ADL's. OT Education/Plan Problem List/Assessment Pt would benefit from skilled OT to increase his independence in basic self care to allow him to safely return to his home to live with his and to decrease caregiver burden after multiple surgeries and medical conditions. Discharge Recommendations Plan/Recommendations: Continue POC Treatment Plan/Plan of Care Patient would benefit from OT for education, treatment and training to promote independence in ADL's, mobility, safety and/or upper extremity function for ADL' s. Plan of Care: ADL Retraining, Caregiver Training, Functional Mobility, Group Exercise/Act as Ind (education, exercise, funct activities, activ tolerance, funct mobility, sociallization), UE Funct Exercise/Act, UE Neuromus Re-Ed/Coord Treatment Duration: May 01, 2017 Frequency: At least 5 of 7 days/Wk (IRF) Estimated Hrs Per Day: 1.5 hours per day Agreement: Yes Rehab Potential: Fair Time/GCodes Start Time: 09:00 Stop Time: 10:00 Total Time Billed (hr/min): 60 Billed Treatment Time 1 visit-ADL 4 (60 min) LUIS ANTONIO FOWLER Apr 15, 2017 10:03
--- NOTE | 2017-04-15 11:58 | Physical Therapy Daily Note ---
PT Daily Note-Current Subjective Pt. state he is pleased that he has finally turned a corner and making some progress. Pt. in gym latter part of Rx, attempting supine therex quickly raises up stating his shirt makes him feels too confined. Wants to take his shirt off or sit up right . Pt. with colostomy bag as well as abdominal dressing exposed if shirt off, therefore pt. was taken back to room for supine ther ex Pain Numeric Pain Scale: 5-Moderate Pain Location: Posterior Location Body Site: Sacrum (soft tissue) Pain Description: Pressure Mental Status Patient Orientation: Normal For Age Attachments: Colostomy/Ileostomy, Marquez Catheter Transfers Functional [place] Measure 0=Not Assessed/NA 4=Minimal Assistance 1=Total Assistance 5=Supervision or Setup 2=Maximal Assistance 6=Modified [place] 3=Moderate Assistance 7=Complete IndependenceIRFPAI Quality Coding Scale 6 Independent with activity with or without an assistive device 5 Patient requires set up or clean up by helper. Patient completes activity by themselves 4 Supervision or touching assist (CGA). [place] provide cues , steadying assist 3 The helper provides less than half the effort to complete the activity 2 The helper provides more than half the effort to complete the activity 1 Dependent. The helper does all the effort to complete an activity 7 Patient refused to complete or attempt activity 9 The patient did not perform the activity before the current illness or injury 88 Not attempted due to Medical conditions or safety concerns Transfers (B, C, W/C) (FIM): 4 Scootin Rollin Roll Left to Right (QC): 6 Supine to/from Sit: 6 Sit to/from Stand: 4 Sit to Lying (QC): 6 Sit to Stand (QC): 4 Chair/Bey-vt-Krlzg Xfer(QC): 4 Bed to/from Chair: 4 Gait Training Does the Patient Walk?: Yes Gait (FIM): 2 Distance (FIM): 0=123-43 ft (50,20x3) Gait Level of Assist: 4 Gait Persons Needed: 1 Gait Assistive Device: FWW heavy wt bearing on FWW, cues for broader SOHA Wheelchair Training Does the Pt Use a Wheelchair?: Yes Wheelchair (FIM): 6 Wheelchair Distance: 3=150 ft Wheelchair Level of Assist: 6 Type of Wheelchair: Manual Exercises Supine Ex: Bridging, Ankle pumps (HC stretch 3 x 20 sec), Quad Set, Rolling, Glut sets, Heel Slides, Scooting, Straight leg raise, Hip abd/add Supine Reps: 20 NuStep Minutes: 8 NuStep Workload: 4 Assessment Current Status: Good Progress PT Short Term Goals Short Term Goals Time Frame: Apr 15, 2017 Transfers (B,C,W/C) (FIM): 3 (met) Gait (FIM): 1 Gait Distance Comment: 10' Gait Level of Assist: 4 Gait Assistive Device: FWW Wheelchair Distance: 150'x2 PT High School Professional Goals High School Professional Goals PT Group Home Goals Time Frame: Apr 29, 2017 Transfers (B,C,W/C) (FIM): 4 Sit to Lying (QC): 6 Lying-Sitting on Side/Bed(QC): 6 Sit to Stand (QC): 3 Rollin Roll Left to Right (QC): 6 Chair/Gvq-uk-Fmbnc Xfer(QC): 3 Car Transfer (QC): 3 Gait (FIM): 1 Distance: 25' Walk 10 feet (QC): 4 Walk 10ft-Uneven Surface(QC): 4 Walk 50ft with 2 Turns (QC): 88 Walk 150 ft (QC): 88 Gait Level of Assist: 4 Gait Assistive Device: FWW Stairs (FIM): 1 # of Steps: 1 1 Step (curb) (QC): 4 PT Plan Treatment/Plan Treatment Plan: Continue Plan of Care Treatment Plan: Bed Mobility, Concurrent Therapy, Education, Functional Activity Lidia, Functional Strength, Group Therapy, Gait, Safety, Therapeutic Exercise, Transfers Treatment Duration: Apr 29, 2017 Frequency: At least 5 of 7 days/Wk (IRF) Estimated Hrs Per Day: 1.5 hours per day Patient and/or Family Agrees t: Yes Safety Risks/Education Patient Education: Gait Training, Transfer Techniques, Correct Positioning, W/ C Management, Disease Process, Safety Issues Teaching Recipient: Patient Teaching Methods: Demonstration, Discussion Response to Teaching: Verbalize Understanding, Return Demonstration, Reinforcement Needed pressure relief arm chair push ups Time/GCodes Time In: 1100 Time Out: 1200 Total Billed Treatment Time: 60 Total Billed Treatment 1,GT25m,EX20m,WC15m G Codes Necessary: MOMO Brasher INSTRUMENT INSTALLER Apr 15, 2017 11:58
[2017-04-15] MEDS ORDERED: NS IV 1000 ML 1,000 ML ONE (12:02)
--- NOTE | 2017-04-15 12:08 | Progress Note-Hospitalist ---
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 He current has 2 open wounds on his abdomen for which Dr Rudolph is consulted. He has been admitted to the hospital at [facility] for roughly 2 months due to this illness and has now been admitted to rehab for rehab due to debility from this critical illness. He denies any complaints at this time and is ordering breakfast. His is at bedside who is also a AEROSPACE PROJECT ENGINEER and expresses concerns about new medicines and previous issues with Lasix and hyponatremia. Otherwise no concerns and ready for rehab. Progress Notes/Assess & Plan Date Seen 04/15/17 Time Seen by Provider: 11:30 Diagonsis/Assessment & Plan Chart Review: No fever Vitals stable Hgb 7.7 Reviewed home meds, pt on iron supplement Patient Interview: Pt states he goes by "Bob" Pt rates his pain at a 7 or 8 due to his wound Pt states he is breathing okay Pt is unsure who his PCP is and states he and his just moved here recently. Pt states his would know who his PCP is. Physical exam stable. Lungs sound good Pt confirms having BMs AFVSS, [place], O x 3, chronically ill RRR, CTAB No edema Assessment: (1) Debility Assessment & Plan: management per IRU (2) S/P AAA repair Status: Acute Assessment & Plan: Repaired in [facility] Monitor BPs with goals <130/80 (3) Colostomy in place Status: Chronic Assessment & Plan: s/p ischemic colitis Wound care as appropriate (4) Tobacco dependence Assessment & Plan: Recommended cessation (5) Pressure ulcer Status: Acute Assessment & Plan: Wound care consulted Dr Rudolph is appreciated Qualifiers: Qualified Codes: L89.150 - Pressure ulcer of sacral region Plan: Monitor pt Supportive care Scribed by Chelsea Padilla under the direct supervision of Dr. Palacio. GORGE PALACIO DO Apr 15, 2017 12:08
--- NOTE | 2017-04-15 14:17 | Occupational Ther Daily Note ---
OT Current Status-Daily Note Subjective Pt alert, lying in bed. Pt has just gotten a wound vac on abdomen wound. Pt agreed to therapy. No c/o pain. Mental Status/Objective Patient Orientation: Person, Place, Time, Situation Functional [place] Measure 0=Not Assessed/NA 4=Minimal Assistance 1=Total Assistance 5=Supervision or Setup 2=Maximal Assistance 6=Modified [place] 3=Moderate Assistance 7=Complete [place] Attachments: Colostomy/Ileostomy, Drains, Marquez Catheter ADL-Treatment Pt is able to go from supine to sitting EOB using bed rail by self. CGA for stand pivot transfer from EOB to w/c. Pt then maneuvered w/c from room to therapy gym. Completed arm bike duration 15 min at 25 vasquez resistance to increase strength and endurance for daily functional tasks. Pt maneuvered w/c back to room and transferred back to bed. present in room. Call light/ phone in reach. All needs met in room. Functional [place] Measure 0=Not Assessed/NA 4=Minimal Assistance 1=Total Assistance 5=Supervision or Setup 2=Maximal Assistance 6=Modified [place] 3=Moderate Assistance 7=Complete IndependenceIRFPAI Quality Coding Scale 6 Independent with activity with or without an assistive device 5 Patient requires set up or clean up by helper. Patient completes activity by themselves 4 Supervision or touching assist (CGA). [place] provide cues , steadying assist 3 The helper provides less than half the effort to complete the activity 2 The helper provides more than half the effort to complete the activity 1 Dependent. The helper does all the effort to complete an activity 7 Patient refused to complete or attempt activity 9 The patient did not perform the activity before the current illness or injury 88 Not attempted due to Medical conditions or safety concerns OT Short Term Goals Short Term Goals Time Frame: Apr 15, 2017 Grooming(FIM): 5 Lower Body Dressing(FIM): 4 Transfers (B,C,W/C) (FIM): 3 (met) 1=Demonstrate adherence to instructed precautions during ADL tasks. 2=Patient will verbalize/demonstrate understanding of assistive devices/ modifications for ADL. 3=Patient will improve strength/tolerance for activity to enable patient to perform ADL's. OT Senior Care Goals Senior Care Goals Time Frame: May 01, 2017 Eating (FIM): 6 Eating (QC): 6 Groomin Oral Hygiene (QC): 6 Bathing(FIM): 6 Shower/Bathe Self (QC): 6 Upper Body Dressing(FIM): 6 Upper Body Dressing (QC): 6 Lower Body Dressing(FIM): 6 Lower Body Dressing (QC): 6 On/Off Footwear (QC): 6 Toileting(FIM): 6 Toileting Hygiene (QC): 6 Toilet/Commode Transfer(FIM): 6 Toilet/Commode Transfer (QC): 6 Shower Transfer(FIM): 6 Comprehension(FIM): 4 Expression (FIM): 5 Social Interaction(FIM): 4 Problem Solving(FIM): 4 Memory(FIM): 4 Additional Goals: 1-Demonstrate ADL Tasks, 2-Verbalize Understanding, 3- ImproveStrength/Lidia 1=Demonstrate adherence to instructed precautions during ADL tasks. 2=Patient will verbalize/demonstrate understanding of assistive devices/ modifications for ADL. 3=Patient will improve strength/tolerance for activity to enable patient to perform ADL's. OT Education/Plan Problem List/Assessment Pt would benefit from skilled OT to increase his independence in basic self care to allow him to safely return to his home to live with his and to decrease caregiver burden after multiple surgeries and medical conditions. Discharge Recommendations Plan/Recommendations: Continue POC Treatment Plan/Plan of Care Patient would benefit from OT for education, treatment and training to promote independence in ADL's, mobility, safety and/or upper extremity function for ADL' s. Plan of Care: ADL Retraining, Caregiver Training, Functional Mobility, Group Exercise/Act as Ind (education, exercise, funct activities, activ tolerance, funct mobility, sociallization), UE Funct Exercise/Act, UE Neuromus Re-Ed/Coord Treatment Duration: May 01, 2017 Frequency: At least 5 of 7 days/Wk (IRF) Estimated Hrs Per Day: 1.5 hours per day Agreement: Yes Rehab Potential: Fair Time/GCodes Start Time: 13:10 Stop Time: 13:40 Total Time Billed (hr/min): 30 Billed Treatment Time 1 visit-FA 1 (15 min) EX 1 (15 min) LUIS ANTONIO FOWLER Apr 15, 2017 14:17
--- NOTE | 2017-04-15 14:42 | Physical Therapy Daily Note ---
PT Daily Note-Current Subjective Pt. anxious to walk and show his what he can do. and pt. both concerned that the new wound vacc and irrigation will inhibit gait. This WINDSHIELD WIPER REPAIRER assures them this WINDSHIELD WIPER REPAIRER and tech can manage all this during gait etc. Pt. and pleased with his progress. Pain Numeric Pain Scale: 9 Location: Posterior Location Body Site: Sacrum (buttocks) Mental Status Patient Orientation: Normal For Age Attachments: Other-See Comments (wound vacc and back brace) Transfers Functional [place] Measure 0=Not Assessed/NA 4=Minimal Assistance 1=Total Assistance 5=Supervision or Setup 2=Maximal Assistance 6=Modified [place] 3=Moderate Assistance 7=Complete IndependenceIRFPAI Quality Coding Scale 6 Independent with activity with or without an assistive device 5 Patient requires set up or clean up by helper. Patient completes activity by themselves 4 Supervision or touching assist (CGA). [place] provide cues , steadying assist 3 The helper provides less than half the effort to complete the activity 2 The helper provides more than half the effort to complete the activity 1 Dependent. The helper does all the effort to complete an activity 7 Patient refused to complete or attempt activity 9 The patient did not perform the activity before the current illness or injury 88 Not attempted due to Medical conditions or safety concerns all TRFs SBA, needed multiple attempts at sup to side to sit as well as sit to stands. Education and review of sit to stand and balance helped Gait Training Gait Assistive Device: FWW gait 60 ft x1, 25ftx2, FWW CGA, w/c to f/u with support to bring [place] Exercises Seated Therapy Exercises: Sit to stand, Long arc quads, Hip flexion Seated Reps: 10 Treatments sit to stands with education and training for safety and stability etc Assessment Current Status: Good Progress increased gait distance and endurance. PT Short Term Goals Short Term Goals Time Frame: Apr 15, 2017 Transfers (B,C,W/C) (FIM): 3 (met) Gait (FIM): 1 Gait Distance Comment: 10' Gait Level of Assist: 4 Gait Assistive Device: FWW Wheelchair Distance: 150'x2 PT Supervisor Dog License Officer Goals Care Home Goals PT Supervisor Dog License Officer Goals Time Frame: Apr 29, 2017 Transfers (B,C,W/C) (FIM): 4 Sit to Lying (QC): 6 Lying-Sitting on Side/Bed(QC): 6 Sit to Stand (QC): 3 Rollin Roll Left to Right (QC): 6 Chair/Ytu-zk-Bkeet Xfer(QC): 3 Car Transfer (QC): 3 Gait (FIM): 1 Distance: 25' Walk 10 feet (QC): 4 Walk 10ft-Uneven Surface(QC): 4 Walk 50ft with 2 Turns (QC): 88 Walk 150 ft (QC): 88 Gait Level of Assist: 4 Gait Assistive Device: FWW Stairs (FIM): 1 # of Steps: 1 1 Step (curb) (QC): 4 PT Plan Treatment/Plan Treatment Plan: Continue Plan of Care Treatment Plan: Bed Mobility, Concurrent Therapy, Education, Functional Activity Lidia, Functional Strength, Group Therapy, Gait, Safety, Therapeutic Exercise, Transfers Treatment Duration: Apr 29, 2017 Frequency: At least 5 of 7 days/Wk (IRF) Estimated Hrs Per Day: 1.5 hours per day Patient and/or Family Agrees t: Yes Safety Risks/Education Patient Education: Gait Training, Transfer Techniques, Correct Positioning, Disease Process, Safety Issues Teaching Recipient: Patient, Family Teaching Methods: Demonstration, Discussion Response to Teaching: Verbalize Understanding, Return Demonstration, Reinforcement Needed Time/GCodes Time In: 1400 Time Out: 1430 Total Billed Treatment Time: 30 Total Billed Treatment 1,FA10m,GT20m G Codes Necessary: MOMO Brasher WINDSHIELD WIPER REPAIRER Apr 15, 2017 14:42
[2017-04-15 18:00] VITALS: BP 122/80
[2017-04-15] MEDS: MIRTAZAPINE 15 MG (REMERON) TAB PO SCH (20:23)
[2017-04-16] MEDS: IRON POLYSAC 150 MG CAP (NIFEREX) PO SCH ×2 (05:29→17:38)
[2017-04-16] MEDS: PANTOPRAZOLE 40 MG (PROTONIX) TAB PO SCH (05:29)
[2017-04-16] MEDS: MULTIVIT W/MINERALS TAB (THERAGRAN M) PO SCH (05:30)
[2017-04-16] MEDS: HYDROcodone/APAP 10 MG/325 MG (LORTAB) TAB PO PRN ×3 (05:30→17:38)
[2017-04-16 06:00] VITALS: BP 116/68
--- NOTE | 2017-04-16 07:31 | Occupational Ther Daily Note ---
OT Current Status-Daily Note Subjective Pt alert, sitting in w/c. Pt frustrated that since getting wound vac that he is not able to get around his room by himself. Pt agreed to therapy. No c/o pain. Mental Status/Objective Patient Orientation: Person, Place, Time, Situation Functional [place] Measure 0=Not Assessed/NA 4=Minimal Assistance 1=Total Assistance 5=Supervision or Setup 2=Maximal Assistance 6=Modified [place] 3=Moderate Assistance 7=Complete [place] Attachments: Colostomy/Ileostomy, Drains (wound vac), Marquez Catheter ADL-Treatment Pt declined shower today. Pt did stand beside bed with min A for standing balance while pt cleansed tena area. Functional [place] Measure 0=Not Assessed/NA 4=Minimal Assistance 1=Total Assistance 5=Supervision or Setup 2=Maximal Assistance 6=Modified [place] 3=Moderate Assistance 7=Complete IndependenceIRFPAI Quality Coding Scale 6 Independent with activity with or without an assistive device 5 Patient requires set up or clean up by helper. Patient completes activity by themselves 4 Supervision or touching assist (CGA). [place] provide cues , steadying assist 3 The helper provides less than half the effort to complete the activity 2 The helper provides more than half the effort to complete the activity 1 Dependent. The helper does all the effort to complete an activity 7 Patient refused to complete or attempt activity 9 The patient did not perform the activity before the current illness or injury 88 Not attempted due to Medical conditions or safety concerns Eating (FIM): 6 (Pt is able to open containers and packages then feed self with regular utensils. Pt is R hand dominant though at this time is using L hand as dominant with R hand as helper hand. Pt is able to flower picker and grasp with R hand though fine motor dexterity tasks are more difficult.) Eating (QC): 6 Grooming (FIM): 6 (Sitting in w/c at sink, pt is able to complete by self.) Oral Hygiene (QC): 6 Upper Body (FIM): 5 (Due to difficulty maneuvering w/c with wound vac pt required set up for dressing today. Pt then was able to don/doff clothing by self.) Upper Body Dressing (QC): 5 Lower Body Dressing (FIM): 3 (Due to difficulty maneuvering w/c with wound vac pt required set up for dressing today. Pt then was able to don/doff clothing sitting in w/c. Assist to position clothing while pt manipulated clothing over feet and pull up legs. Pt then stood beside bed, held onto bed with R hand while hiking pants over L hip with L hand. Assist to hike over R hip.) Wound vac position on w/c so pt would be able to move around room more efficiently on own. After therapy, pt lying in bed with call light/phone in reach. All needs met in room. OT Short Term Goals Short Term Goals Time Frame: Apr 15, 2017 Grooming(FIM): 5 Lower Body Dressing(FIM): 4 Transfers (B,C,W/C) (FIM): 3 (met) 1=Demonstrate adherence to instructed precautions during ADL tasks. 2=Patient will verbalize/demonstrate understanding of assistive devices/ modifications for ADL. 3=Patient will improve strength/tolerance for activity to enable patient to perform ADL's. OT Care Home Goals Heel Trimmer Goals Time Frame: May 01, 2017 Eating (FIM): 6 Eating (QC): 6 Groomin Oral Hygiene (QC): 6 Bathing(FIM): 6 Shower/Bathe Self (QC): 6 Upper Body Dressing(FIM): 6 Upper Body Dressing (QC): 6 Lower Body Dressing(FIM): 6 Lower Body Dressing (QC): 6 On/Off Footwear (QC): 6 Toileting(FIM): 6 Toileting Hygiene (QC): 6 Toilet/Commode Transfer(FIM): 6 Toilet/Commode Transfer (QC): 6 Shower Transfer(FIM): 6 Comprehension(FIM): 4 Expression (FIM): 5 Social Interaction(FIM): 4 Problem Solving(FIM): 4 Memory(FIM): 4 Additional Goals: 1-Demonstrate ADL Tasks, 2-Verbalize Understanding, 3- ImproveStrength/Lidia 1=Demonstrate adherence to instructed precautions during ADL tasks. 2=Patient will verbalize/demonstrate understanding of assistive devices/ modifications for ADL. 3=Patient will improve strength/tolerance for activity to enable patient to perform ADL's. OT Education/Plan Problem List/Assessment Pt would benefit from skilled OT to increase his independence in basic self care to allow him to safely return to his home to live with his and to decrease caregiver burden after multiple surgeries and medical conditions. Discharge Recommendations Plan/Recommendations: Continue POC Treatment Plan/Plan of Care Patient would benefit from OT for education, treatment and training to promote independence in ADL's, mobility, safety and/or upper extremity function for ADL' s. Plan of Care: ADL Retraining, Caregiver Training, Functional Mobility, Group Exercise/Act as Ind (education, exercise, funct activities, activ tolerance, funct mobility, sociallization), UE Funct Exercise/Act, UE Neuromus Re-Ed/Coord Treatment Duration: May 01, 2017 Frequency: At least 5 of 7 days/Wk (IRF) Estimated Hrs Per Day: 1.5 hours per day Agreement: Yes Rehab Potential: Fair Time/GCodes Start Time: 07:00 Stop Time: 08:00 Total Time Billed (hr/min): 60 Billed Treatment Time 1 visit-FA 4 (60 min) LUIS ANTONIO FOWLER Apr 16, 2017 07:31
[2017-04-16] MEDS: MAGNESIUM OXIDE (MAG-OX)400 MG TAB PO SCH ×2 (09:00→17:38)
[2017-04-16] MEDS: NICOTINE 14 MG (NICODERM) PATCH TD SCH (09:00)
[2017-04-16] MEDS: NICOTINE PATCH REMOVAL TP SCH (09:00)
[2017-04-16] MEDS: FUROSEMIDE 20 MG (LASIX) TAB PO SCH (09:01)
[2017-04-16] MEDS: MELOXICAM 7.5 MG (MOBIC) TABLET PO SCH (09:01)
[2017-04-16] MEDS: DIVALPROEX 250 MG DELAYED RELEASE (DEPAKOTE) TAB PO SCH ×2 (09:01→21:04)
--- NOTE | 2017-04-16 09:02 | PM & R (SOAP) Progress Note ---
Subjective Time Seen by Provider: 08:10 Subjective/Events-last exam Patient was seen in his room this AM Appreciate Dr aguero note and Dr Agrawal orders Patient min assist for transfers Objective Exam Last Set of Vital Signs Vital Signs Date Time Temp Pulse Resp B/P (MAP) Pulse Ox O2 Delivery O2 Flow Rate FiO2 04/16/17 06:00 98.4 98 18 116/68 98 Room Air Capillary Refill : I&O Intake and Output 04/17/17 00:00 Intake Total 400 ml Output Total 700 ml Balance -300 ml Intake Oral 400 ml Output Urine Total 600 ml Stool Total 100 ml General: Alert, Oriented X3, Cooperative, No Acute Distress, Mild Distress HEENT: Atraumatic, PERRLA, EOMI, Mucous Memb Moist/[place] Neck: Supple, No JVD Lungs: Clear to Auscultation, Normal Air Movement (Midline upper abdomen -- 5.7 x 1.2 x 0.8 cm, 100% slough; Midline, lower abdomen -- 4.1 x 21.) Heart: Regular Rate Abdomen: Normal Bowel Sounds, Soft, No Tenderness, Other (colostomy functioning midline surgicaal sites as per dr chavez) Skin: Other (Midline upper -- 5.7 x 1.2 x 0.8 cm, 100% slough; midline lower abdomen -- 4.1 x 2.0 x 2.7 cm, 50% slough, 50% granulation; sacrum -- 8.3 x 9.5 x 1.7 cm, 50% slough, 50% granulation. 2 cm Stage 1 of R hip) Neuro: Other (Generalized weakness) Results Lab Laboratory Tests 04/14/17 05:10: White Blood Count 8.2, Red Blood Count 2.07L, Hemoglobin 6.5*L, Hematocrit 20*L , Mean Corpuscular Volume 98, Mean Corpuscular Hemoglobin 31, Mean Corpuscular Hemoglobin Concent 32, Red Cell Distribution Width 15.2H, Platelet Count 537H, Mean Platelet Volume 9.0, Neutrophils (%) (Auto) 67, Lymphocytes (%) (Auto) 20, Monocytes (%) (Auto) 9, Eosinophils (%) (Auto) 3, Basophils (%) (Auto) 0, Neutrophils # (Auto) 5.5, Lymphocytes # (Auto) 1.6, Monocytes # (Auto) 0.8, Eosinophils # (Auto) 0.3, Basophils # (Auto) 0.0 04/14/17 08:11: Hemoglobin 7.7L, Hematocrit 25L 04/14/17 09:05: Stool Occult Blood Immunoassay NEGATIVE Assessment/Plan Assessment s/p AAA repair OSH with open wounds abdominal midline being treated with topical care Postop ischemic colitis s/p colostomy Sacral pressure sore Postop anemia-stable 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
[2017-04-16] MEDS: DAKIN'S 1/4 STRENGTH (0.125%) 473 ML BTL TOP SCH ×2 (09:13→21:05)
--- NOTE | 2017-04-16 11:49 | Physical Therapy Daily Note ---
PT Daily Note-Current Subjective Agreeable to PT. Reports he feels "tied down" with the wound vac. He is appreciative of [place] attaching the would vac to his wheelchair to increase his independence. Mental Status Patient Orientation: Person, Place, Time, Situation Attachments: Colostomy/Ileostomy, Marquez Catheter, Other-See Comments (wound vac ) Transfers Functional [place] Measure 0=Not Assessed/NA 4=Minimal Assistance 1=Total Assistance 5=Supervision or Setup 2=Maximal Assistance 6=Modified [place] 3=Moderate Assistance 7=Complete IndependenceIRFPAI Quality Coding Scale 6 Independent with activity with or without an assistive device 5 Patient requires set up or clean up by helper. Patient completes activity by themselves 4 Supervision or touching assist (CGA). [place] provide cues , steadying assist 3 The helper provides less than half the effort to complete the activity 2 The helper provides more than half the effort to complete the activity 1 Dependent. The helper does all the effort to complete an activity 7 Patient refused to complete or attempt activity 9 The patient did not perform the activity before the current illness or injury 88 Not attempted due to Medical conditions or safety concerns Transfers (B, C, W/C) (FIM): 4 Roll Left to Right (QC): 6 Supine to/from Sit: 6 Sit to/from Stand: 4 (min assist to come to a full stand.) Sit to Lying (QC): 6 Sit to Stand (QC): 4 Chair/Imz-hp-Pbhvh Xfer(QC): 4 Pt needs CGA to perform transfer bed to chair with a squat pivot method; Pt requires min assist to come to a full stand prior to walking; initially he is retropulsive and needs assist to push forward. Sit to stand activity 2 x 5 reps to facilitate strength and sequencing for progression to mod indep. transfer bed to chair to start treatment and returned to bed post treatment, CGA with transfer without aD. Gait Training Does the Patient Walk?: Yes Gait (FIM): 2 Distance (FIM): 5=950-02 ft Distance: 60 ft, 60 ft and 40 ft Gait Assistive Device: FWW Heavy reliance of FWW and needs close CGA with occas min assist to maintain balance; foot drop on the right, able to lift foot to clear toes. Forward flexed and with much exertion to complete. Very fatigued after walking bouts. Wheelchair Training Does the Pt Use a Wheelchair?: Yes Wheelchair (FIM): 6 Type of Wheelchair: Manual Assessment Current Status: Good Progress Pt is progressing and functional strength progressing; continues to require assist with transfers and has limited functional activity tolerance. Pt's gait distance has increased. Motivated and compliant with therapy services. PT Short Term Goals Short Term Goals Time Frame: Apr 15, 2017 Transfers (B,C,W/C) (FIM): 3 (met) Gait (FIM): 1 (met) Gait Distance Comment: 10' Gait Level of Assist: 4 Gait Assistive Device: FWW Wheelchair Distance: 150'x2 PT Fiscal Economist Goals Fiscal Economist Goals PT Group Home Goals Time Frame: Apr 29, 2017 Transfers (B,C,W/C) (FIM): 4 Sit to Lying (QC): 6 Lying-Sitting on Side/Bed(QC): 6 Sit to Stand (QC): 3 Rollin Roll Left to Right (QC): 6 Chair/Lhe-mp-Ricqu Xfer(QC): 3 Car Transfer (QC): 3 Gait (FIM): 1 Distance: 25' Walk 10 feet (QC): 4 Walk 10ft-Uneven Surface(QC): 4 Walk 50ft with 2 Turns (QC): 88 Walk 150 ft (QC): 88 Gait Level of Assist: 4 Gait Assistive Device: FWW Stairs (FIM): 1 # of Steps: 1 1 Step (curb) (QC): 4 PT Plan Problem List Problem List: Activity Tolerance, Functional Strength, Safety Treatment/Plan Treatment Plan: Continue Plan of Care Treatment Plan: Bed Mobility, Concurrent Therapy, Education, Functional Activity Lidia, Functional Strength, Group Therapy, Gait, Safety, Therapeutic Exercise, Transfers Treatment Duration: Apr 29, 2017 Frequency: At least 5 of 7 days/Wk (IRF) Estimated Hrs Per Day: 1.5 hours per day Patient and/or Family Agrees t: Yes Safety Risks/Education Patient Education: Transfer Techniques Teaching Recipient: Patient Teaching Methods: Discussion Response to Teaching: Reinforcement Needed Discharge Recommendations Therapy D/C Recommendations: Physical Therapy Home Care Time/GCodes Time In: 945 Time Out: 1030 Total Billed Treatment Time: 45 Total Billed Treatment visit GT 30 EX 15 LUIS ANTONIO RODRIGUEZ PT Apr 16, 2017 11:48
--- NOTE | 2017-04-16 12:28 | Occupational Ther Daily Note ---
OT Current Status-Daily Note Subjective Pt alert, lying in bed. Pt agreed to therapy. No c/o pain at this time. Mental Status/Objective Patient Orientation: Person, Place, Time, Situation Functional [place] Measure 0=Not Assessed/NA 4=Minimal Assistance 1=Total Assistance 5=Supervision or Setup 2=Maximal Assistance 6=Modified [place] 3=Moderate Assistance 7=Complete [place] Attachments: Colostomy/Ileostomy, Drains, Marquez Catheter ADL-Treatment Functional [place] Measure 0=Not Assessed/NA 4=Minimal Assistance 1=Total Assistance 5=Supervision or Setup 2=Maximal Assistance 6=Modified [place] 3=Moderate Assistance 7=Complete IndependenceIRFPAI Quality Coding Scale 6 Independent with activity with or without an assistive device 5 Patient requires set up or clean up by helper. Patient completes activity by themselves 4 Supervision or touching assist (CGA). [place] provide cues , steadying assist 3 The helper provides less than half the effort to complete the activity 2 The helper provides more than half the effort to complete the activity 1 Dependent. The helper does all the effort to complete an activity 7 Patient refused to complete or attempt activity 9 The patient did not perform the activity before the current illness or injury 88 Not attempted due to Medical conditions or safety concerns Pt transferring from EOB to w/c with CGA. Other Treatment Pt maneuvered w/c from room to therapy gym and back. Pt completed fine motor tasks to increase dexterity and in-hand manipulation skills with R UE for daily functional tasks. Pt has a tendency to extend ring and small finger when completing fine motor tasks. Physical reminders, such as small object in palm of hand to hold with 4th and 5th digits. After therapy, pt lying in bed with call light/phone in reach. All needs met in room. OT Short Term Goals Short Term Goals Time Frame: Apr 15, 2017 Grooming(FIM): 5 Lower Body Dressing(FIM): 4 Transfers (B,C,W/C) (FIM): 3 (met) 1=Demonstrate adherence to instructed precautions during ADL tasks. 2=Patient will verbalize/demonstrate understanding of assistive devices/ modifications for ADL. 3=Patient will improve strength/tolerance for activity to enable patient to perform ADL's. OT Tare Weigher Goals Tare Weigher Goals Time Frame: May 01, 2017 Eating (FIM): 6 Eating (QC): 6 Groomin Oral Hygiene (QC): 6 Bathing(FIM): 6 Shower/Bathe Self (QC): 6 Upper Body Dressing(FIM): 6 Upper Body Dressing (QC): 6 Lower Body Dressing(FIM): 6 Lower Body Dressing (QC): 6 On/Off Footwear (QC): 6 Toileting(FIM): 6 Toileting Hygiene (QC): 6 Toilet/Commode Transfer(FIM): 6 Toilet/Commode Transfer (QC): 6 Shower Transfer(FIM): 6 Comprehension(FIM): 4 Expression (FIM): 5 Social Interaction(FIM): 4 Problem Solving(FIM): 4 Memory(FIM): 4 Additional Goals: 1-Demonstrate ADL Tasks, 2-Verbalize Understanding, 3- ImproveStrength/Lidia 1=Demonstrate adherence to instructed precautions during ADL tasks. 2=Patient will verbalize/demonstrate understanding of assistive devices/ modifications for ADL. 3=Patient will improve strength/tolerance for activity to enable patient to perform ADL's. OT Education/Plan Problem List/Assessment Pt would benefit from skilled OT to increase his independence in basic self care to allow him to safely return to his home to live with his and to decrease caregiver burden after multiple surgeries and medical conditions. Discharge Recommendations Plan/Recommendations: Continue POC Treatment Plan/Plan of Care Patient would benefit from OT for education, treatment and training to promote independence in ADL's, mobility, safety and/or upper extremity function for ADL' s. Plan of Care: ADL Retraining, Caregiver Training, Functional Mobility, Group Exercise/Act as Ind (education, exercise, funct activities, activ tolerance, funct mobility, sociallization), UE Funct Exercise/Act, UE Neuromus Re-Ed/Coord Treatment Duration: May 01, 2017 Frequency: At least 5 of 7 days/Wk (IRF) Estimated Hrs Per Day: 1.5 hours per day Agreement: Yes Rehab Potential: Fair Time/GCodes Start Time: 11:30 Stop Time: 12:00 Total Time Billed (hr/min): 30 Billed Treatment Time 1 visit-NM 2 (30 min) LUIS ANTONIO FOWLER Apr 16, 2017 12:28
--- NOTE | 2017-04-16 15:07 | Speech Therapy Daily Note ---
Speech Daily Progress Note Subjective Date Seen by Provider: Apr 16, 2017 Time Seen by Provider: 11:00 The patient was seated in bed upon entrance. The patient greeted the clinician appropriately and was agreeable to participation in the speech and language treatment session. Objective NA (Assessment of Language Related Functional Activities) were continued on this date with the below results: - Reading Instructions: The patient displayed 80% accuracy while reading functional, daily instructions. - Reading Medicine Labels: The patient displayed 100% accuracy while reading medicine labels. - Calendar: The patient displayed 100% accuracy while answering questions pertaining to a calendar or principal planner. Assessment Assessment Current Status: Good Progress Treatment Plan Continue Plan of Care Communication Comprehension: 4 Expression: 4 Social Cognition Social Interaction: 4 Problem Solvin Memory: 4 Speech Short Term Goals Short Term Goals Short Term Goals 1. The patient will demonstrate 80% accuracy with structured word-finding tasks. 2. The patient will display 90% accuracy with functional safety problem solving. 3. The patient will recall and demonstrate three functional memory strategies, independently. Time Frame-STG: One Week Speech Developmental Psychologist Goals Fdc Goals 1. The patient will improve cognitive linguistic function for increased function and safety with ADL's in the least restrictive setting. Time Frame: Two Weeks Comprehension: 4 Expression: 5 Social Interaction: 4 Problem Solvin Memory: 4 Speech-Plan Treatment Plan Speech Therapy Treatment Plan: Continue Plan of Care Continue skilled speech pathology to target functional problem solving and memory. Treatment Duration: Apr 22, 2017 Frequency: Modified Program (IRF) (Four to five times per week) Estimated Hrs Per Day: .5 hour per day Rehab Potential: Fair Safety Risks/Education Teaching Recipient: Patient Teaching Methods: Discussion Response to Teaching: Verbalize Understanding Education Topics Provided: Orientation Strategies Time Speech Therapy Time In: 11:00 Speech Therapy Time Out: 11:30 Total Billed Time: 30 Billed Treatment Time 1OMEGA ELIZABETH ST Apr 16, 2017 15:07
--- NOTE | 2017-04-16 15:27 | Physical Therapy Daily Note ---
PT Daily Note-Current Subjective Reports being tired this afternoon. Had to wake pt for therapy. Transfers Functional [place] Measure 0=Not Assessed/NA 4=Minimal Assistance 1=Total Assistance 5=Supervision or Setup 2=Maximal Assistance 6=Modified [place] 3=Moderate Assistance 7=Complete IndependenceIRFPAI Quality Coding Scale 6 Independent with activity with or without an assistive device 5 Patient requires set up or clean up by helper. Patient completes activity by themselves 4 Supervision or touching assist (CGA). [place] provide cues , steadying assist 3 The helper provides less than half the effort to complete the activity 2 The helper provides more than half the effort to complete the activity 1 Dependent. The helper does all the effort to complete an activity 7 Patient refused to complete or attempt activity 9 The patient did not perform the activity before the current illness or injury 88 Not attempted due to Medical conditions or safety concerns Treatments Pt is mod indep with bed mobility and CG-SBA with SPT x 4 bed to from chair. Wheelchair mobilit 150 ft x 2 and 50 ft x 1 mod indep. Seated B LE ther ex x 15 for AP, LAQ, hip flexion and hip abduct; standing at // bars for calf raises , mini squats and marching. Ther ex performed to improve strength for gait and transfer progression as well as increase functional standing tolerance. Assessment Current Status: Good Progress Functional progress noted; still requires assist with mobility. PT Short Term Goals Short Term Goals Time Frame: Apr 15, 2017 Transfers (B,C,W/C) (FIM): 3 (met) Gait (FIM): 1 (met) Gait Distance Comment: 10' Gait Level of Assist: 4 Gait Assistive Device: FWW Wheelchair Distance: 150'x2 PT Special Assets Officer Goals Special Assets Officer Goals PT Special Assets Officer Goals Time Frame: Apr 29, 2017 Transfers (B,C,W/C) (FIM): 4 Sit to Lying (QC): 6 Lying-Sitting on Side/Bed(QC): 6 Sit to Stand (QC): 3 Rollin Roll Left to Right (QC): 6 Chair/Hiz-ym-Kqdkj Xfer(QC): 3 Car Transfer (QC): 3 Gait (FIM): 1 Distance: 25' Walk 10 feet (QC): 4 Walk 10ft-Uneven Surface(QC): 4 Walk 50ft with 2 Turns (QC): 88 Walk 150 ft (QC): 88 Gait Level of Assist: 4 Gait Assistive Device: FWW Stairs (FIM): 1 # of Steps: 1 1 Step (curb) (QC): 4 PT Plan Problem List Problem List: Activity Tolerance, Functional Strength, Safety, Balance, Gait, Transfer Treatment/Plan Treatment Plan: Continue Plan of Care Treatment Plan: Bed Mobility, Concurrent Therapy, Education, Functional Activity Lidia, Functional Strength, Group Therapy, Gait, Safety, Therapeutic Exercise, Transfers Treatment Duration: Apr 29, 2017 Frequency: At least 5 of 7 days/Wk (IRF) Estimated Hrs Per Day: 1.5 hours per day Patient and/or Family Agrees t: Yes Safety Risks/Education Patient Education: Transfer Techniques, Safety Issues Teaching Recipient: Patient Teaching Methods: Discussion Discharge Recommendations Therapy D/C Recommendations: Physical Therapy Home Care Time/GCodes Time In: 1330 Time Out: 1400 Total Billed Treatment Time: 30 Total Billed Treatment visit 10 EX 20 LUIS ANTONIO RODRIGUEZ PT Apr 16, 2017 15:27
[2017-04-16 17:55] VITALS: BP 108/69
[2017-04-16] MEDS: MIRTAZAPINE 15 MG (REMERON) TAB PO SCH (21:04)
[2017-04-17] MEDS: HYDROcodone/APAP 10 MG/325 MG (LORTAB) TAB PO PRN ×3 (05:03→17:31)
[2017-04-17 06:00] VITALS: BP 102/56
[2017-04-17] MEDS: MULTIVIT W/MINERALS TAB (THERAGRAN M) PO SCH (06:27)
[2017-04-17] MEDS: PANTOPRAZOLE 40 MG (PROTONIX) TAB PO SCH (06:27)
[2017-04-17] MEDS: IRON POLYSAC 150 MG CAP (NIFEREX) PO SCH ×2 (06:27→17:31)
--- NOTE | 2017-04-17 07:49 | Occupational Ther Daily Note ---
OT Current Status-Daily Note Subjective Pt alert, lying in bed. Pt agreed to therapy. Pt c/o pain in R knee, stated that he had already had pain meds, did not rate pain. Mental Status/Objective Patient Orientation: Person, Place, Time, Situation Functional [place] Measure 0=Not Assessed/NA 4=Minimal Assistance 1=Total Assistance 5=Supervision or Setup 2=Maximal Assistance 6=Modified [place] 3=Moderate Assistance 7=Complete [place] Attachments: Colostomy/Ileostomy, Drains, Marquez Catheter ADL-Treatment Functional [place] Measure 0=Not Assessed/NA 4=Minimal Assistance 1=Total Assistance 5=Supervision or Setup 2=Maximal Assistance 6=Modified [place] 3=Moderate Assistance 7=Complete IndependenceIRFPAI Quality Coding Scale 6 Independent with activity with or without an assistive device 5 Patient requires set up or clean up by helper. Patient completes activity by themselves 4 Supervision or touching assist (CGA). [place] provide cues , steadying assist 3 The helper provides less than half the effort to complete the activity 2 The helper provides more than half the effort to complete the activity 1 Dependent. The helper does all the effort to complete an activity 7 Patient refused to complete or attempt activity 9 The patient did not perform the activity before the current illness or injury 88 Not attempted due to Medical conditions or safety concerns Eating (FIM): 6 (Pt completed own set up for eating and using regular utensils to cut food and feed self.) Eating (QC): 6 Grooming (FIM): 6 (Using w/c pt is able to maneuver to bathroom and complete grooming at sink.) Oral Hygiene (QC): 6 Bathing (FIM): 5 (Supervision. Pt complete bathing by self using shower bench , hand held shower, long handle sponge and grabbars. Pt leans side to side to cleanse buttocks around wound dressing.) Bathing Location: L Arm, R Arm, L Upper Leg, R Upper Leg, L Lower Leg ( including foot), R Lower Leg (including foot), Chest, Abdomen, Buttocks, Perineal Area Shower/Bathe Self (QC): 5 Upper Body (FIM): 5 (At w/c level, pt is able to don/doff upper body clothing by self.) Upper Body Dressing (QC): 5 On/Off Footwear (QC): 2 (AE to don/doff socks. Pt requires assist to place R foot into sock aid then pt is able to complete.) Transfers (B, C, W/C) (FIM): 4 (CGA for stand pivot transfers from one surface to another.) Shower Transfer(FIM): 4 (CGA using shower bench, grabbars and w/c.) OT Short Term Goals Short Term Goals Time Frame: Apr 15, 2017 Grooming(FIM): 5 Lower Body Dressing(FIM): 4 Transfers (B,C,W/C) (FIM): 3 (met) 1=Demonstrate adherence to instructed precautions during ADL tasks. 2=Patient will verbalize/demonstrate understanding of assistive devices/ modifications for ADL. 3=Patient will improve strength/tolerance for activity to enable patient to perform ADL's. OT Stock Grader Goals Stock Grader Goals Time Frame: May 01, 2017 Eating (FIM): 6 Eating (QC): 6 Groomin Oral Hygiene (QC): 6 Bathing(FIM): 6 Shower/Bathe Self (QC): 6 Upper Body Dressing(FIM): 6 Upper Body Dressing (QC): 6 Lower Body Dressing(FIM): 6 Lower Body Dressing (QC): 6 On/Off Footwear (QC): 6 Toileting(FIM): 6 Toileting Hygiene (QC): 6 Toilet/Commode Transfer(FIM): 6 Toilet/Commode Transfer (QC): 6 Shower Transfer(FIM): 6 Comprehension(FIM): 4 Expression (FIM): 5 Social Interaction(FIM): 4 Problem Solving(FIM): 4 Memory(FIM): 4 Additional Goals: 1-Demonstrate ADL Tasks, 2-Verbalize Understanding, 3- ImproveStrength/Lidia 1=Demonstrate adherence to instructed precautions during ADL tasks. 2=Patient will verbalize/demonstrate understanding of assistive devices/ modifications for ADL. 3=Patient will improve strength/tolerance for activity to enable patient to perform ADL's. OT Education/Plan Problem List/Assessment Pt would benefit from skilled OT to increase his independence in basic self care to allow him to safely return to his home to live with his and to decrease caregiver burden after multiple surgeries and medical conditions. Discharge Recommendations Plan/Recommendations: Continue POC Treatment Plan/Plan of Care Patient would benefit from OT for education, treatment and training to promote independence in ADL's, mobility, safety and/or upper extremity function for ADL' s. Plan of Care: ADL Retraining, Caregiver Training, Functional Mobility, Group Exercise/Act as Ind (education, exercise, funct activities, activ tolerance, funct mobility, sociallization), UE Funct Exercise/Act, UE Neuromus Re-Ed/Coord Treatment Duration: May 01, 2017 Frequency: At least 5 of 7 days/Wk (IRF) Estimated Hrs Per Day: 1.5 hours per day Agreement: Yes Rehab Potential: Fair Time/GCodes Start Time: 07:00 Stop Time: 08:00 Total Time Billed (hr/min): 60 Billed Treatment Time 1 visit-ADL 4 (60 min) LUIS ANTONIO FOWLER Apr 17, 2017 07:49
[2017-04-17] MEDS: NICOTINE 14 MG (NICODERM) PATCH TD SCH (08:13)
[2017-04-17] MEDS: MELOXICAM 7.5 MG (MOBIC) TABLET PO SCH (08:13)
[2017-04-17] MEDS: NICOTINE PATCH REMOVAL TP SCH (08:13)
[2017-04-17] MEDS: MAGNESIUM OXIDE (MAG-OX)400 MG TAB PO SCH ×2 (08:13→17:31)
[2017-04-17] MEDS: DIVALPROEX 250 MG DELAYED RELEASE (DEPAKOTE) TAB PO SCH ×2 (08:13→20:23)
[2017-04-17] MEDS: FUROSEMIDE 20 MG (LASIX) TAB PO SCH (08:13)
[2017-04-17] MEDS: DAKIN'S 1/4 STRENGTH (0.125%) 473 ML BTL TOP SCH ×2 (08:15→21:11)
[2017-04-17] MEDS: ZINC OXIDE 16% OINT (BUTT PASTE) 113 GM TUBE TOP PRN (08:16)
--- NOTE | 2017-04-17 10:59 | Physical Therapy Daily Note ---
PT Daily Note-Current Subjective Patient in bed pre tx, agrees to PT, has pain of 8/10 on his bottom. Appearance Patient BTB post tx with nurse call, phone, tray, all needs met. Mental Status Patient Orientation: Normal For Age Attachments: Colostomy/Ileostomy, Marquez Catheter wound vac Transfers Functional [place] Measure 0=Not Assessed/NA 4=Minimal Assistance 1=Total Assistance 5=Supervision or Setup 2=Maximal Assistance 6=Modified [place] 3=Moderate Assistance 7=Complete IndependenceIRFPAI Quality Coding Scale 6 Independent with activity with or without an assistive device 5 Patient requires set up or clean up by helper. Patient completes activity by themselves 4 Supervision or touching assist (CGA). [place] provide cues , steadying assist 3 The helper provides less than half the effort to complete the activity 2 The helper provides more than half the effort to complete the activity 1 Dependent. The helper does all the effort to complete an activity 7 Patient refused to complete or attempt activity 9 The patient did not perform the activity before the current illness or injury 88 Not attempted due to Medical conditions or safety concerns Transfers (B, C, W/C) (FIM): 4 Scootin Rollin Supine to/from Sit: 5 Sit to/from Stand: 4 Bed to/from Chair: 4 occasional cues for hand placement, CGA Gait Training Gait (FIM): 2 Distance: 60'x2, 30'x2 Gait Level of Assist: 4 Gait Persons Needed: 1 Gait Assistive Device: FWW wheelchair follow, CGA, right dropfoot, no scissoring Wheelchair Training Does the Pt Use a Wheelchair?: Yes Wheelchair (FIM): 6 Distance: 150'x2 Type of Wheelchair: Manual Exercises Standing: Hip Abduction, Heel/toe raises, Mini squats Standing Reps: 15 LAQ alternating for 5 min Treatments bed mobility and transfers, ambulation, functional strengthening, wheelchair mobility Assessment Current Status: Fair Progress improving transfers, and ambulation but still needs frequent rest breaks PT Short Term Goals Short Term Goals Time Frame: Apr 15, 2017 Transfers (B,C,W/C) (FIM): 3 (met) Gait (FIM): 1 (met) Gait Distance Comment: 10' Gait Level of Assist: 4 Gait Assistive Device: FWW Wheelchair Distance: 150'x2 PT Reproducer Goals Senior Living Goals PT Reproducer Goals Time Frame: Apr 29, 2017 Transfers (B,C,W/C) (FIM): 4 Sit to Lying (QC): 6 Lying-Sitting on Side/Bed(QC): 6 Sit to Stand (QC): 3 Rollin Roll Left to Right (QC): 6 Chair/Lmd-ga-Rryda Xfer(QC): 3 Car Transfer (QC): 3 Gait (FIM): 1 Distance: 25' Walk 10 feet (QC): 4 Walk 10ft-Uneven Surface(QC): 4 Walk 50ft with 2 Turns (QC): 88 Walk 150 ft (QC): 88 Gait Level of Assist: 4 Gait Assistive Device: FWW Stairs (FIM): 1 # of Steps: 1 1 Step (curb) (QC): 4 PT Plan Problem List Problem List: Activity Tolerance, Functional Strength, Safety, Balance, Gait, Transfer, Bed Mobility Treatment/Plan Treatment Plan: Continue Plan of Care Treatment Plan: Bed Mobility, Concurrent Therapy, Education, Functional Activity Lidia, Functional Strength, Group Therapy, Gait, Safety, Therapeutic Exercise, Transfers Treatment Duration: Apr 29, 2017 Frequency: At least 5 of 7 days/Wk (IRF) Estimated Hrs Per Day: 1.5 hours per day Patient and/or Family Agrees t: Yes Safety Risks/Education Patient Education: Gait Training, Transfer Techniques, Correct Positioning, W/ C Management, Safety Issues Teaching Recipient: Patient Teaching Methods: Demonstration, Discussion Response to Teaching: Reinforcement Needed Time/GCodes Time In: 1000 Time Out: 1100 Total Billed Treatment Time: 60 Total Billed Treatment 1 visit GT 30' EX 20' WCH 10' YARIEL GRUBER PT Apr 17, 2017 10:59
[2017-04-17] MEDS ORDERED: fentaNYL PATCH 75 MCG (DURAGESIC) TD SCH (12:30)
--- NOTE | 2017-04-17 14:36 | Therapy Group Daily Note ---
Therapy Daily Group Note Patient Education Topic Home Safety, Energy Cons, Other List Below (Relaxation) Other/Notes Pt attended group PT/OT session and participated in group by completing introductions and contributing to discussion/education on energy conservation and relaxation. Pt shared ways he has effectively conserved energy at home. Pt left group at 1345 due to appointment with wound care. Start Time: 13:00 Stop Time: 13:45 Total Billed Treatment Time: 45 Total Billed Treatment visit, group 45 minutes ZOE STAPLETON OT Apr 17, 2017 14:36
--- NOTE | 2017-04-17 14:49 | Speech Therapy Daily Note ---
Speech Daily Progress Note Subjective Date Seen by Provider: Apr 17, 2017 Time Seen by Provider: 14:20 The patient was laying in bed upon entrance. The patient recently had his wound vac changed and reported some discomfort, however, denied specific pain. The patient was agreeable to participation in the cognitive treatment session. Objective - Orientation: The patient remains 100% oriented, independently (month, day of week, year, date). - Functional Recall of Activities: The patient was able to independently recall activities and exercises he participated in on this date with PT, OT, and nursing. Additionally, the patient was able to recall safety recommendations and sequencing of ADL's (specifically, using his call light to ask for help). Assessment Assessment Current Status: Fair Progress Treatment Plan Continue Plan of Care Communication Comprehension: 4 Expression: 4 Social Cognition Social Interaction: 4 Problem Solvin Memory: 4 Speech Short Term Goals Short Term Goals Short Term Goals 1. The patient will demonstrate 80% accuracy with structured word-finding tasks. 2. The patient will display 90% accuracy with functional safety problem solving. 3. The patient will recall and demonstrate three functional memory strategies, independently. Time Frame-STG: One Week Speech Senior Care Goals Senior Care Goals 1. The patient will improve cognitive linguistic function for increased function and safety with ADL's in the least restrictive setting. Time Frame: Two Weeks Comprehension: 4 Expression: 5 Social Interaction: 4 Problem Solvin Memory: 4 Speech-Plan Treatment Plan Speech Therapy Treatment Plan: Continue Plan of Care Continue skilled speech pathology to target functional problem solving and recall. Treatment Duration: Apr 22, 2017 Frequency: Modified Program (IRF) (Four to five times per week) Estimated Hrs Per Day: .5 hour per day Rehab Potential: Fair Safety Risks/Education Teaching Recipient: Patient Teaching Methods: Discussion Response to Teaching: Verbalize Understanding Education Topics Provided: ADL Sequencing Time Speech Therapy Time In: 14:20 Speech Therapy Time Out: 14:40 Total Billed Time: 20 Billed Treatment Time 1, SLTS - The session was reduced ten minutes due to the presence of wound vac nursing. KATIANA MARQUEZ Apr 17, 2017 14:48
[2017-04-17 18:00] VITALS: BP 134/72
[2017-04-17] MEDS: MIRTAZAPINE 15 MG (REMERON) TAB PO SCH (20:20)
[2017-04-18 05:00] VITALS: BP 89/52
[2017-04-18] MEDS: PANTOPRAZOLE 40 MG (PROTONIX) TAB PO SCH (06:03)
[2017-04-18] MEDS: MULTIVIT W/MINERALS TAB (THERAGRAN M) PO SCH (06:03)
[2017-04-18] MEDS: IRON POLYSAC 150 MG CAP (NIFEREX) PO SCH ×2 (06:03→17:14)
[2017-04-18] MEDS: HYDROcodone/APAP 10 MG/325 MG (LORTAB) TAB PO PRN ×4 (06:03→23:49)
[2017-04-18] MEDS: NICOTINE 14 MG (NICODERM) PATCH TD SCH (09:02)
[2017-04-18] MEDS: MELOXICAM 7.5 MG (MOBIC) TABLET PO SCH (09:02)
[2017-04-18] MEDS: MAGNESIUM OXIDE (MAG-OX)400 MG TAB PO SCH ×2 (09:03→17:14)
[2017-04-18] MEDS: FUROSEMIDE 20 MG (LASIX) TAB PO SCH (09:03)
[2017-04-18] MEDS: DIVALPROEX 250 MG DELAYED RELEASE (DEPAKOTE) TAB PO SCH ×2 (09:03→20:16)
[2017-04-18] MEDS: NICOTINE PATCH REMOVAL TP SCH (09:03)
[2017-04-18] MEDS: DAKIN'S 1/4 STRENGTH (0.125%) 473 ML BTL TOP SCH ×2 (09:03→20:17)
--- NOTE | 2017-04-18 12:31 | Physical Therapy Daily Note ---
PT Daily Note-Current Subjective Pt. up in w/c and agrees to therapy. While ambulating pt. c/o R hip pain but does not give objective pain rating. Mental Status Patient Orientation: Person, Place, Time, Situation Attachments: Colostomy/Ileostomy, Marquez Catheter wound vac Transfers Functional [place] Measure 0=Not Assessed/NA 4=Minimal Assistance 1=Total Assistance 5=Supervision or Setup 2=Maximal Assistance 6=Modified [place] 3=Moderate Assistance 7=Complete IndependenceIRFPAI Quality Coding Scale 6 Independent with activity with or without an assistive device 5 Patient requires set up or clean up by helper. Patient completes activity by themselves 4 Supervision or touching assist (CGA). [place] provide cues , steadying assist 3 The helper provides less than half the effort to complete the activity 2 The helper provides more than half the effort to complete the activity 1 Dependent. The helper does all the effort to complete an activity 7 Patient refused to complete or attempt activity 9 The patient did not perform the activity before the current illness or injury 88 Not attempted due to Medical conditions or safety concerns Transfers (B, C, W/C) (FIM): 3 Sit to/from Stand: 3 pt. was mod to min A with sit to stand Gait Training Does the Patient Walk?: Yes Gait (FIM): 2 Distance (FIM): 7=934-59 ft Distance: x 70 ft, x 50 ft, x 50 ft Gait Level of Assist: 3 Gait Persons Needed: 1 Gait Assistive Device: FWW close follow with w/c needed due to fatigue Treatments gait training Assessment Current Status: Good Progress Pt. fatigued with ambulation and needed 2 seated rest periods during session. Pt. had 1 LOB while standing and needed min A to correct balance. Pt. returned to room, up in w/c with family present and all needs met. PT Short Term Goals Short Term Goals Time Frame: Apr 15, 2017 Transfers (B,C,W/C) (FIM): 3 (met) Gait (FIM): 1 (met) Gait Distance Comment: 10' Gait Level of Assist: 4 Gait Assistive Device: FWW Wheelchair Distance: 150'x2 PT Grocery Store Bagger Goals Usp Goals PT Usp Goals Time Frame: Apr 29, 2017 Transfers (B,C,W/C) (FIM): 4 Sit to Lying (QC): 6 Lying-Sitting on Side/Bed(QC): 6 Sit to Stand (QC): 3 Rollin Roll Left to Right (QC): 6 Chair/Chq-gc-Uminu Xfer(QC): 3 Car Transfer (QC): 3 Gait (FIM): 1 Distance: 25' Walk 10 feet (QC): 4 Walk 10ft-Uneven Surface(QC): 4 Walk 50ft with 2 Turns (QC): 88 Walk 150 ft (QC): 88 Gait Level of Assist: 4 Gait Assistive Device: FWW Stairs (FIM): 1 # of Steps: 1 1 Step (curb) (QC): 4 PT Plan Treatment/Plan Treatment Plan: Continue Plan of Care Treatment Plan: Bed Mobility, Concurrent Therapy, Education, Functional Activity Lidia, Functional Strength, Group Therapy, Gait, Safety, Therapeutic Exercise, Transfers Treatment Duration: Apr 29, 2017 Frequency: At least 5 of 7 days/Wk (IRF) Estimated Hrs Per Day: 1.5 hours per day Patient and/or Family Agrees t: Yes Time/GCodes Time In: 1050 Time Out: 1105 Total Billed Treatment Time: 15 Total Billed Treatment 1, GT 15' ALEJANDRO IBARRA PT Apr 18, 2017 12:31
[2017-04-18] MEDS ORDERED: oxyCODONE/APAP 10/325MG (PERCOCET 10) TABLET PO PRN (13:30)
--- NOTE | 2017-04-18 13:31 | Progress Note-Hospitalist ---
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 He current has 2 open wounds on his abdomen for which Dr Rudolph is consulted. He has been admitted to the hospital at [facility] for roughly 2 months due to this illness and has now been admitted to rehab for rehab due to debility from this critical illness. He denies any complaints at this time and is ordering breakfast. His is at bedside who is also a CONSTRUCTION SCHEDULER and expresses concerns about new medicines and previous issues with Lasix and hyponatremia. Otherwise no concerns and ready for rehab. Progress Notes/Assess & Plan Date Seen 04/18/17 Time Seen by Provider: 12:30 Diagonsis/Assessment & Plan has multiple questions and all were answered to the best of my ability. I asked her if she was in healthcare and she stated yes but not forthcoming until specifically asked about her profession and she stated nurse practitioner and she usually knew what every med he was taking but does not currently have that information. She wanted to know about his nutrition and he is on a MVI and eating as much as he could and he could not eat anymore so unsure how I can help his nutrition any more than he is doing currently. She was asking if he should be taking Vit B12 and I told her the B12 supplement was in the MVI. Wondered about his hgb being so low so will check that tomorrow but he does not have any indication for transfusion at this time. In-depth conversation ensued and we did DC Hydrocodone since he was not getting any pain relief from that so I added Percocet to the Fentanyl patch I increased to 75mcg every 3 days of which he stated it did not help. Very complex problems and he is very upset about having to lie on his hips due to the decubitus ulcer precludes supine position but now suffering from stage 1 on his hips. Very difficult clinical situation of which there is no easy or rapid resolution but will try to help him in any way possible. AFVSS, [place], O x 3, chronically ill, thin RRR, CTAB No edema Assessment: (1) Debility Assessment & Plan: management per IRU (2) S/P AAA repair Status: Acute Assessment & Plan: Repaired in [facility] Monitor BPs with goals <130/80 (3) Colostomy in place Status: Chronic Assessment & Plan: s/p ischemic colitis Wound care as appropriate (4) Tobacco dependence Assessment & Plan: Recommended cessation (5) Pressure ulcer Status: Acute Assessment & Plan: Wound care consulted Dr Rudolph is appreciated Qualifiers: Qualified Codes: L89.150 - Pressure ulcer of sacral region 6. Anemia severe but asymptomatic w/o indication for transfusion 7. Poor appetite? 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 Plan: Monitor pt Supportive care Scribed by Chelsea Padilla under the direct supervision of Dr. Palacio. GORGE PALACIO DO Apr 18, 2017 13:31
[2017-04-18] MEDS ORDERED: fentaNYL PATCH 75 MCG (DURAGESIC) TD SCH (14:00)
[2017-04-18] MEDS: fentaNYL PATCH 100 MCG (DURAGESIC) TD SCH (14:39)
[2017-04-18 18:43] VITALS: BP 93/54
[2017-04-18] MEDS: MIRTAZAPINE 15 MG (REMERON) TAB PO SCH (20:16)
[2017-04-19 05:03] VITALS: BP 96/55
[2017-04-19] MEDS: MULTIVIT W/MINERALS TAB (THERAGRAN M) PO SCH (06:04)
[2017-04-19] MEDS: IRON POLYSAC 150 MG CAP (NIFEREX) PO SCH ×2 (06:04→16:38)
[2017-04-19] MEDS: PANTOPRAZOLE 40 MG (PROTONIX) TAB PO SCH (06:05)
[2017-04-19] MEDS: NICOTINE 14 MG (NICODERM) PATCH TD SCH (08:30)
[2017-04-19] MEDS: FUROSEMIDE 20 MG (LASIX) TAB PO SCH (08:30)
[2017-04-19] MEDS: DIVALPROEX 250 MG DELAYED RELEASE (DEPAKOTE) TAB PO SCH ×2 (08:30→20:18)
[2017-04-19] MEDS: MELOXICAM 7.5 MG (MOBIC) TABLET PO SCH (08:30)
[2017-04-19] MEDS: MAGNESIUM OXIDE (MAG-OX)400 MG TAB PO SCH ×2 (08:30→16:38)
[2017-04-19] MEDS: NICOTINE PATCH REMOVAL TP SCH (08:30)
[2017-04-19] MEDS: HYDROcodone/APAP 10 MG/325 MG (LORTAB) TAB PO PRN ×3 (08:30→20:18)
[2017-04-19] MEDS: DAKIN'S 1/4 STRENGTH (0.125%) 473 ML BTL TOP SCH ×2 (08:31→20:19)
[2017-04-19 09:29] LABS: BASOPHILS % (AUTO) 0 % (0-10); EOSINOPHILS # (AUTO) 0.2 10^3/uL (0.0-0.3); EOSINOPHILS % (AUTO) 2 % (0-10); LYMPHOCYTES # (AUTO) 0.9 X 10^3 (1.0-4.0); LYMPHOCYTES % (AUTO) 10 % (12-44); MEAN CORPUSCULAR HEMOGLOBIN 30 PG (25-34); MEAN CORPUSCULAR HGB CONC 31 G/DL (32-36); MEAN CORPUSCULAR VOLUME 98 FL (80-99); MEAN PLATELET VOLUME 9.1 FL (7.4-10.4); MONOCYTES # (AUTO) 0.7 X 10^3 (0.0-1.0); MONOCYTES % (AUTO) 8 % (0-12); NEUTROPHILS # (AUTO) 7.5 X 10^3 (1.8-7.8); NEUTROPHILS % (AUTO) 81 % (42-75); PLATELET COUNT 433 10^3/uL (130-400); RED BLOOD COUNT 2.44 10^6/uL (4.35-5.85); RED CELL DISTRIBUTION WIDTH 15.1 % (10.0-14.5); WHITE BLOOD COUNT 9.4 10^3/uL (4.3-11.0)
[2017-04-19 09:55] LABS: BILIRUBIN,TOTAL 0.3 MG/DL (0.1-1.0); CREATININE SERUM 1.22 MG/DL (0.60-1.30); POTASSIUM 4.7 MMOL/L (3.6-5.0); TOTAL PROTEIN 6.6 GM/DL (6.4-8.2)
[2017-04-19 18:00] VITALS: BP 102/63
[2017-04-19] MEDS: ZINC OXIDE 16% OINT (BUTT PASTE) 113 GM TUBE TOP PRN (20:18)
[2017-04-19] MEDS: MIRTAZAPINE 15 MG (REMERON) TAB PO SCH (20:18)
[2017-04-20] MEDS: IRON POLYSAC 150 MG CAP (NIFEREX) PO SCH ×2 (06:17→18:26)
[2017-04-20] MEDS: MULTIVIT W/MINERALS TAB (THERAGRAN M) PO SCH (06:17)
[2017-04-20] MEDS: HYDROcodone/APAP 10 MG/325 MG (LORTAB) TAB PO PRN ×2 (06:17→12:08)
[2017-04-20] MEDS: PANTOPRAZOLE 40 MG (PROTONIX) TAB PO SCH (06:17)
[2017-04-20 06:18] VITALS: BP 111/64
[2017-04-20] MEDS: NICOTINE 14 MG (NICODERM) PATCH TD SCH (07:44)
[2017-04-20] MEDS: NICOTINE PATCH REMOVAL TP SCH (07:44)
[2017-04-20] MEDS: DIVALPROEX 250 MG DELAYED RELEASE (DEPAKOTE) TAB PO SCH ×2 (08:09→20:43)
[2017-04-20] MEDS: MAGNESIUM OXIDE (MAG-OX)400 MG TAB PO SCH ×2 (08:09→18:27)
[2017-04-20] MEDS: DAKIN'S 1/4 STRENGTH (0.125%) 473 ML BTL TOP SCH ×2 (08:10→20:43)
[2017-04-20] MEDS: FUROSEMIDE 20 MG (LASIX) TAB PO SCH (08:10)
[2017-04-20] MEDS: MELOXICAM 7.5 MG (MOBIC) TABLET PO SCH (08:10)
--- NOTE | 2017-04-20 08:59 | Physical Therapy Daily Note ---
PT Daily Note-Current Subjective Patient in bed pre tx, agrees to PT, has pain of 9/10 in his bottom. Appearance Patient in bed post tx with nurse call, phone, tray, all needs met. Mental Status Patient Orientation: Normal For Age Attachments: Colostomy/Ileostomy, Marquez Catheter wound vac Transfers Functional [place] Measure 0=Not Assessed/NA 4=Minimal Assistance 1=Total Assistance 5=Supervision or Setup 2=Maximal Assistance 6=Modified [place] 3=Moderate Assistance 7=Complete IndependenceIRFPAI Quality Coding Scale 6 Independent with activity with or without an assistive device 5 Patient requires set up or clean up by helper. Patient completes activity by themselves 4 Supervision or touching assist (CGA). [place] provide cues , steadying assist 3 The helper provides less than half the effort to complete the activity 2 The helper provides more than half the effort to complete the activity 1 Dependent. The helper does all the effort to complete an activity 7 Patient refused to complete or attempt activity 9 The patient did not perform the activity before the current illness or injury 88 Not attempted due to Medical conditions or safety concerns Transfers (B, C, W/C) (FIM): 4 Scootin Rollin Supine to/from Sit: 5 Sit to/from Stand: 4 Bed to/from Chair: 4 Patient now performs transfers with CGA, cues for hand placement Gait Training Gait (FIM): 2 Distance: 50'x2, 30' Gait Level of Assist: 4 Gait Persons Needed: 1 Gait Assistive Device: FWW CGA, wheelchair follow, dropfoot on right side, doesn't want to wear his shoes and an AFO but needs it Wheelchair Training Does the Pt Use a Wheelchair?: Yes Wheelchair (FIM): 6 Distance: 150'x2 Type of Wheelchair: Manual Exercises sit to stand 3 sets of 5, LAQ alternating for 4 min Treatments bed mobility and transfers, ambulation, functional strengthening Assessment Current Status: Fair Progress improved transfers, patient was very depressed and weeping today, needed encouragement to participate PT Short Term Goals Short Term Goals Time Frame: Apr 15, 2017 Transfers (B,C,W/C) (FIM): 3 (met) Gait (FIM): 1 (met) Gait Distance Comment: 10' Gait Level of Assist: 4 Gait Assistive Device: FWW Wheelchair Distance: 150'x2 PT Boilermaker'S Assistant Goals Boilermaker'S Assistant Goals PT Boilermaker'S Assistant Goals Time Frame: Apr 29, 2017 Transfers (B,C,W/C) (FIM): 4 Sit to Lying (QC): 6 Lying-Sitting on Side/Bed(QC): 6 Sit to Stand (QC): 3 Rollin Roll Left to Right (QC): 6 Chair/Rrt-gq-Loxnd Xfer(QC): 3 Car Transfer (QC): 3 Gait (FIM): 1 Distance: 25' Walk 10 feet (QC): 4 Walk 10ft-Uneven Surface(QC): 4 Walk 50ft with 2 Turns (QC): 88 Walk 150 ft (QC): 88 Gait Level of Assist: 4 Gait Assistive Device: FWW Stairs (FIM): 1 # of Steps: 1 1 Step (curb) (QC): 4 PT Plan Problem List Problem List: Activity Tolerance, Functional Strength, Safety, Balance, Gait, Transfer, Bed Mobility Treatment/Plan Treatment Plan: Continue Plan of Care Treatment Plan: Bed Mobility, Concurrent Therapy, Education, Functional Activity Lidia, Functional Strength, Group Therapy, Gait, Safety, Therapeutic Exercise, Transfers Treatment Duration: Apr 29, 2017 Frequency: At least 5 of 7 days/Wk (IRF) Estimated Hrs Per Day: 1.5 hours per day Patient and/or Family Agrees t: Yes Safety Risks/Education Patient Education: Gait Training, Transfer Techniques, Correct Positioning, W/ C Management, Safety Issues Teaching Recipient: Patient Teaching Methods: Demonstration, Discussion Response to Teaching: Reinforcement Needed Time/GCodes Time In: 800 Time Out: 859 Total Billed Treatment Time: 59 Total Billed Treatment 1 visit GT 34' WCH 10' EX 15' YARIEL GRUBER PT Apr 20, 2017 08:59
--- NOTE | 2017-04-20 10:00 | Occupational Ther Daily Note ---
OT Current Status-Daily Note Subjective Pt alert, sitting in recliner. Pt very anxious and tearful throughout treatment. Pt requested for nrsg to look at medicine, COLLADO reported to nrsg. Pt agreed to therapy. Reported pain, nrsg had already given pain meds. Mental Status/Objective Patient Orientation: Person, Place, Time, Situation Functional [place] Measure 0=Not Assessed/NA 4=Minimal Assistance 1=Total Assistance 5=Supervision or Setup 2=Maximal Assistance 6=Modified [place] 3=Moderate Assistance 7=Complete [place] Attachments: Colostomy/Ileostomy, Drains, Marquez Catheter ADL-Treatment Functional [place] Measure 0=Not Assessed/NA 4=Minimal Assistance 1=Total Assistance 5=Supervision or Setup 2=Maximal Assistance 6=Modified [place] 3=Moderate Assistance 7=Complete IndependenceIRFPAI Quality Coding Scale 6 Independent with activity with or without an assistive device 5 Patient requires set up or clean up by helper. Patient completes activity by themselves 4 Supervision or touching assist (CGA). [place] provide cues , steadying assist 3 The helper provides less than half the effort to complete the activity 2 The helper provides more than half the effort to complete the activity 1 Dependent. The helper does all the effort to complete an activity 7 Patient refused to complete or attempt activity 9 The patient did not perform the activity before the current illness or injury 88 Not attempted due to Medical conditions or safety concerns Eating (FIM): 6 (Pt completes own set up and feeding.) Eating (QC): 6 Grooming (FIM): 6 (Sitting in w/c, pt is able to complete own grooming.) Oral Hygiene (QC): 6 Bathing (FIM): 6 (Using shower bench, grabbars, hand held shower and long handle sponge pt is able to complete own bathing. Leans side to side to cleanse buttocks. Safety concerns.) Bathing Location: L Arm, R Arm, L Upper Leg, R Upper Leg, L Lower Leg ( including foot), R Lower Leg (including foot), Chest, Abdomen, Buttocks, Perineal Area Shower/Bathe Self (QC): 6 Upper Body (FIM): 6 (Gathering clothing via w/c then is able to don/doff by self.) Upper Body Dressing (QC): 6 Lower Body Dressing (FIM): 3 (Pt gets anxious with donning/doffing lower body clothing. Upset because he isn't able to lift his R foot to don pants or socks. Pt then thinks he cannot do the task. Pt has been educated on AE for lower body dressing.) Lower Body Dressing (QC): 2 Shower Transfer(FIM): 4 (CGA using shower bench, grabbars, and w/c. ) After therapy, pt sitting in w/c with call light/phone in reach. All needs met in room. OT Short Term Goals Short Term Goals Time Frame: Apr 15, 2017 Grooming(FIM): 5 Lower Body Dressing(FIM): 4 Transfers (B,C,W/C) (FIM): 3 (met) 1=Demonstrate adherence to instructed precautions during ADL tasks. 2=Patient will verbalize/demonstrate understanding of assistive devices/ modifications for ADL. 3=Patient will improve strength/tolerance for activity to enable patient to perform ADL's. OT Half-Way Goals Meat Carrier Goals Time Frame: May 01, 2017 Eating (FIM): 6 Eating (QC): 6 Groomin Oral Hygiene (QC): 6 Bathing(FIM): 6 Shower/Bathe Self (QC): 6 Upper Body Dressing(FIM): 6 Upper Body Dressing (QC): 6 Lower Body Dressing(FIM): 6 Lower Body Dressing (QC): 6 On/Off Footwear (QC): 6 Toileting(FIM): 6 Toileting Hygiene (QC): 6 Toilet/Commode Transfer(FIM): 6 Toilet/Commode Transfer (QC): 6 Shower Transfer(FIM): 6 Comprehension(FIM): 4 Expression (FIM): 5 Social Interaction(FIM): 4 Problem Solving(FIM): 4 Memory(FIM): 4 Additional Goals: 1-Demonstrate ADL Tasks, 2-Verbalize Understanding, 3- ImproveStrength/Lidia 1=Demonstrate adherence to instructed precautions during ADL tasks. 2=Patient will verbalize/demonstrate understanding of assistive devices/ modifications for ADL. 3=Patient will improve strength/tolerance for activity to enable patient to perform ADL's. OT Education/Plan Problem List/Assessment Pt would benefit from skilled OT to increase his independence in basic self care to allow him to safely return to his home to live with his and to decrease caregiver burden after multiple surgeries and medical conditions. Discharge Recommendations Plan/Recommendations: Continue POC Treatment Plan/Plan of Care Patient would benefit from OT for education, treatment and training to promote independence in ADL's, mobility, safety and/or upper extremity function for ADL' s. Plan of Care: ADL Retraining, Caregiver Training, Functional Mobility, Group Exercise/Act as Ind (education, exercise, funct activities, activ tolerance, funct mobility, sociallization), UE Funct Exercise/Act, UE Neuromus Re-Ed/Coord Treatment Duration: May 01, 2017 Frequency: At least 5 of 7 days/Wk (IRF) Estimated Hrs Per Day: 1.5 hours per day Agreement: Yes Rehab Potential: Fair Time/GCodes Start Time: 07:00 Stop Time: 08:00 Total Time Billed (hr/min): 60 Billed Treatment Time 1 visit-ADL 4 (60 min) LUIS ANTONIO FOWLER Apr 20, 2017 10:00
--- NOTE | 2017-04-20 11:55 | Speech Therapy Daily Note ---
Speech Daily Progress Note Subjective Date Seen by Provider: Apr 20, 2017 Time Seen by Provider: 10:15 The patient was laying in bed upon entrance. The patient greeted the clinician appropriately, however, was extremely fatigued throughout the session. The patient frequently fell asleep and required verbal prompting for alertness. Per patient, he received pain medication which is making him "tired." Objective Orientation: The patient is independently oriented to month, day of week, date, year, location, and city. Recall of Memory Strategies: The patient independently recalled four memory strategies including "writing it down, using a calendar, getting a pill box, and the use of repetition." Safety Problem Solving: The patient was able to independently recall safety precautions including locking his wheelchair wheels prior to standing, using his call light for help in his room, not getting his wound vac wet, avoiding excessive pressure on his backside. Additionally, the patient recalled the number to call for emergencies at home. Assessment Assessment Current Status: Good Progress Treatment Plan Continue Plan of Care Communication Comprehension: 4 Expression: 5 Social Cognition Social Interaction: 4 Problem Solvin Memory: 4 Speech Short Term Goals Short Term Goals Short Term Goals 1. The patient will demonstrate 80% accuracy with structured word-finding tasks. 2. The patient will display 90% accuracy with functional safety problem solving. 3. The patient will recall and demonstrate three functional memory strategies, independently. Time Frame-STG: One Week Speech Maxillofacial Pathology Goals Fci Goals 1. The patient will improve cognitive linguistic function for increased function and safety with ADL's in the least restrictive setting. Time Frame: Two Weeks Comprehension: 4 (MET) Expression: 5 (MET) Social Interaction: 4 (MET) Problem Solvin (MET) Memory: 4 (MET) Speech-Plan Treatment Plan Speech Therapy Treatment Plan: Continue Plan of Care Continue skilled speech pathology to functional safety problem solving and memory. Treatment Duration: Apr 22, 2017 Frequency: Modified Program (IRF) (Four to five times per week) Estimated Hrs Per Day: .5 hour per day Rehab Potential: Fair Safety Risks/Education Teaching Recipient: Patient Teaching Methods: Discussion Response to Teaching: Verbalize Understanding Education Topics Provided: Plan of Care, Recommendations, Safety Precautions Time Speech Therapy Time In: 10:15 Speech Therapy Time Out: 10:45 Total Billed Time: 30 Billed Treatment Time LeticiaOMEGAKATIANA ST Apr 20, 2017 11:55
--- NOTE | 2017-04-20 11:57 | Therapy Team Discharge Summary ---
Therapy Discharge Summary Discharge Recommendations Date of Discharge Therapy D/C Recommendations: Physical Therapy Home Care Occupational Therapy Decreased Activ Tolerance, Decreased UE Strength, Dependent Transfers, Impaired Bed Mobility, Impaired Coordination, Impaired Funct Balance, Impaired Self-Care Skills, Restricted Funct UE ROM Speech-Language Pathology The patient was admitted to [facility] for rehabilitation following an abdominal aortic aneurysm. Upon admission, the patient displayed mild confusion and reduced orientation. Skilled speech pathology focused on functional memory strategies, safety problem solving, and word-finding. The patient met all goals placed by speech pathology. At this time, the patient will be discharged from skilled speech services. No additional speech services are recommended following discharge. PT Snf Goals Snf Goals PT Aircraft Detail Draftsperson Goals Time Frame: Apr 29, 2017 Transfers (B,C,W/C) (FIM): 4 Roll Left to Right (QC): 6 Sit to Lying (QC): 6 Lying-Sitting on Side/Bed(QC): 6 Sit to Stand (QC): 3 Chair/Fkb-li-Vippa Xfer(QC): 3 Car Transfer (QC): 3 Gait (FIM): 1 Distance: 25' Walk 10 feet (QC): 4 Walk 10ft-Uneven Surface(QC): 4 Walk 50ft with 2 Turns (QC): 88 Walk 150 ft (QC): 88 Gait Level of Assist: 4 Gait Assistive Device: FWW Stairs (FIM): 1 # of Steps: 1 1 Step (curb) (QC): 4 OT Aircraft Detail Draftsperson Goals Snf Goals Time Frame: May 01, 2017 Eating (FIM): 6 Eating (QC): 6 Oral Hygiene (QC): 6 Grooming(FIM): 6 Bathing(FIM): 6 Shower/Bathe Self (QC): 6 Upper Body Dressing(FIM): 6 Upper Body Dressing (QC): 6 Lower Body Dressing(FIM): 6 Lower Body Dressing (QC): 6 On/Off Footwear (QC): 6 Toileting(FIM): 6 Toileting Hygiene (QC): 6 Toilet/Commode Transfer(FIM): 6 Toilet/Commode Transfer (QC): 6 Shower Transfer(FIM): 6 Comprehension(FIM): 4 (MET) Expression (FIM): 5 (MET) Social Interaction(FIM): 4 (MET) Problem Solving(FIM): 4 (MET) Memory(FIM): 4 (MET) Additional Goals: 1-Demonstrate ADL Tasks, 2-Verbalize Understanding, 3- ImproveStrength/Lidia 1=Demonstrate adherence to instructed precautions during ADL tasks. 2=Patient will verbalize/demonstrate understanding of assistive devices/ modifications for ADL. 3=Patient will improve strength/tolerance for activity to enable patient to perform ADL's. Speech Aircraft Detail Draftsperson Goals Snf Goals 1. The patient will improve cognitive linguistic function for increased function and safety with ADL's in the least restrictive setting. Time Frame: Two Weeks Comprehension: 4 (MET) Expression: 5 (MET) Social Interaction: 4 (MET) Problem Solvin (MET) Memory: 4 (MET) KATIANA MARQUEZ Apr 20, 2017 11:57
--- NOTE | 2017-04-20 13:54 | Occupational Ther Daily Note ---
OT Current Status-Daily Note Subjective Pt lying in bed sleeping. Wound care finishing up with dressing change. Pt woke to name. Agreed to therapy. Pt had been given pain meds before wound care though when moving to sit up on EOB increased pain. Mental Status/Objective Patient Orientation: Person, Place, Time, Situation Functional [place] Measure 0=Not Assessed/NA 4=Minimal Assistance 1=Total Assistance 5=Supervision or Setup 2=Maximal Assistance 6=Modified [place] 3=Moderate Assistance 7=Complete [place] ADL-Treatment Functional [place] Measure 0=Not Assessed/NA 4=Minimal Assistance 1=Total Assistance 5=Supervision or Setup 2=Maximal Assistance 6=Modified [place] 3=Moderate Assistance 7=Complete IndependenceIRFPAI Quality Coding Scale 6 Independent with activity with or without an assistive device 5 Patient requires set up or clean up by helper. Patient completes activity by themselves 4 Supervision or touching assist (CGA). [place] provide cues , steadying assist 3 The helper provides less than half the effort to complete the activity 2 The helper provides more than half the effort to complete the activity 1 Dependent. The helper does all the effort to complete an activity 7 Patient refused to complete or attempt activity 9 The patient did not perform the activity before the current illness or injury 88 Not attempted due to Medical conditions or safety concerns Other Treatment SBA with HOB raised and using bed rails, pt is able to go from supine to sitting EOB and back. CGA to stand pivot transfer from surface to surface. Pt maneuvered w/c to therapy gym by self. Completed arm bike for 10 min at 25 vasquez resistance to increase strength and activity tolerance for daily functional tasks. After therapy, pt had transferred back to bed with call light /phone in reach. All needs met in room. OT Short Term Goals Short Term Goals Time Frame: Apr 15, 2017 Grooming(FIM): 5 Lower Body Dressing(FIM): 4 Transfers (B,C,W/C) (FIM): 3 (met) 1=Demonstrate adherence to instructed precautions during ADL tasks. 2=Patient will verbalize/demonstrate understanding of assistive devices/ modifications for ADL. 3=Patient will improve strength/tolerance for activity to enable patient to perform ADL's. OT Usp Goals Usp Goals Time Frame: May 01, 2017 Eating (FIM): 6 Eating (QC): 6 Groomin Oral Hygiene (QC): 6 Bathing(FIM): 6 Shower/Bathe Self (QC): 6 Upper Body Dressing(FIM): 6 Upper Body Dressing (QC): 6 Lower Body Dressing(FIM): 6 Lower Body Dressing (QC): 6 On/Off Footwear (QC): 6 Toileting(FIM): 6 Toileting Hygiene (QC): 6 Toilet/Commode Transfer(FIM): 6 Toilet/Commode Transfer (QC): 6 Shower Transfer(FIM): 6 Comprehension(FIM): 4 (MET) Expression (FIM): 5 (MET) Social Interaction(FIM): 4 (MET) Problem Solving(FIM): 4 (MET) Memory(FIM): 4 (MET) Additional Goals: 1-Demonstrate ADL Tasks, 2-Verbalize Understanding, 3- ImproveStrength/Lidia 1=Demonstrate adherence to instructed precautions during ADL tasks. 2=Patient will verbalize/demonstrate understanding of assistive devices/ modifications for ADL. 3=Patient will improve strength/tolerance for activity to enable patient to perform ADL's. OT Education/Plan Problem List/Assessment Pt would benefit from skilled OT to increase his independence in basic self care to allow him to safely return to his home to live with his and to decrease caregiver burden after multiple surgeries and medical conditions. Discharge Recommendations Plan/Recommendations: Continue POC Treatment Plan/Plan of Care Patient would benefit from OT for education, treatment and training to promote independence in ADL's, mobility, safety and/or upper extremity function for ADL' s. Plan of Care: ADL Retraining, Caregiver Training, Functional Mobility, Group Exercise/Act as Ind (education, exercise, funct activities, activ tolerance, funct mobility, sociallization), UE Funct Exercise/Act, UE Neuromus Re-Ed/Coord Treatment Duration: May 01, 2017 Frequency: At least 5 of 7 days/Wk (IRF) Estimated Hrs Per Day: 1.5 hours per day Agreement: Yes Rehab Potential: Fair Time/GCodes Start Time: 13:00 Stop Time: 13:30 Total Time Billed (hr/min): 30 Billed Treatment Time 1 visit-FA 1 (20 min) EX 1 (10 min) LUIS ANTONIO FOWLER Apr 20, 2017 13:54
--- NOTE | 2017-04-20 15:32 | Physical Therapy Daily Note ---
PT Daily Note-Current Subjective Agrees to PT. No complaints. Reports he has been sleepy which he attributes to medications. Transfers Functional [place] Measure 0=Not Assessed/NA 4=Minimal Assistance 1=Total Assistance 5=Supervision or Setup 2=Maximal Assistance 6=Modified [place] 3=Moderate Assistance 7=Complete IndependenceIRFPAI Quality Coding Scale 6 Independent with activity with or without an assistive device 5 Patient requires set up or clean up by helper. Patient completes activity by themselves 4 Supervision or touching assist (CGA). [place] provide cues , steadying assist 3 The helper provides less than half the effort to complete the activity 2 The helper provides more than half the effort to complete the activity 1 Dependent. The helper does all the effort to complete an activity 7 Patient refused to complete or attempt activity 9 The patient did not perform the activity before the current illness or injury 88 Not attempted due to Medical conditions or safety concerns Treatments Wheelchair mobility 50 ft x 2 mod indep. Pt ambulated 70ft, 40 ft and 30 ft with FWW with close CGA, CGA to stand. Assessment Current Status: Good Progress Foot drop present with Right LE during gait. Distance is increasing slowly but fatigues quickly and relies heavily on his walker. PT Short Term Goals Short Term Goals Time Frame: Apr 15, 2017 Transfers (B,C,W/C) (FIM): 3 (met) Gait (FIM): 1 (met) Gait Distance Comment: 10' Gait Level of Assist: 4 Gait Assistive Device: FWW Wheelchair Distance: 150'x2 PT Endorsement Clerk Goals Endorsement Clerk Goals PT Endorsement Clerk Goals Time Frame: Apr 29, 2017 Transfers (B,C,W/C) (FIM): 4 Sit to Lying (QC): 6 Lying-Sitting on Side/Bed(QC): 6 Sit to Stand (QC): 3 Rollin Roll Left to Right (QC): 6 Chair/Eyj-tz-Kmlpz Xfer(QC): 3 Car Transfer (QC): 3 Gait (FIM): 1 Distance: 25' Walk 10 feet (QC): 4 Walk 10ft-Uneven Surface(QC): 4 Walk 50ft with 2 Turns (QC): 88 Walk 150 ft (QC): 88 Gait Level of Assist: 4 Gait Assistive Device: FWW Stairs (FIM): 1 # of Steps: 1 1 Step (curb) (QC): 4 PT Plan Problem List Problem List: Activity Tolerance, Functional Strength, Safety, Balance, Gait, Transfer Treatment/Plan Treatment Plan: Continue Plan of Care Treatment Plan: Bed Mobility, Concurrent Therapy, Education, Functional Activity Lidia, Functional Strength, Group Therapy, Gait, Safety, Therapeutic Exercise, Transfers Treatment Duration: Apr 29, 2017 Frequency: At least 5 of 7 days/Wk (IRF) Estimated Hrs Per Day: 1.5 hours per day Patient and/or Family Agrees t: Yes Safety Risks/Education Patient Education: Safety Issues Teaching Recipient: Patient Teaching Methods: Demonstration, Discussion Response to Teaching: Reinforcement Needed Time/GCodes Time In: 1500 Time Out: 1523 Total Billed Treatment Time: 23 Total Billed Treatment visit GT 23 LUIS ANTONIO RODRIGUEZ PT Apr 20, 2017 15:32
[2017-04-20 18:41] VITALS: BP 94/59
--- NOTE | 2017-04-20 20:24 | PM & R (SOAP) Progress Note ---
Subjective Time Seen by Provider: 17:00 Subjective/Events-last exam Patient was seen in his room this afternoon Patient CGA for gait with WW Appreciate DR Pinto note and orders Patient abit somnolent may need to decrease D Patch dose Objective Exam Last Set of Vital Signs Vital Signs Date Time Temp Pulse Resp B/P (MAP) Pulse Ox O2 Delivery O2 Flow Rate FiO2 04/20/17 20:00 Room Air 04/20/17 18:41 98.9 105 16 94/59 (71) 90 Capillary Refill : I&O Intake and Output 04/20/17 00:00 Intake Total 2120 ml Output Total 1900 ml Balance 220 ml Intake Oral 2120 ml Output Urine Total 1500 ml Stool Total 400 ml General: Alert, Oriented X3, Cooperative, No Acute Distress, Mild Distress HEENT: Atraumatic, PERRLA, EOMI, Mucous Memb Moist/Castella Neck: Supple, No JVD Lungs: Clear to Auscultation, Normal Air Movement (Midline upper abdomen -- 5.7 x 1.2 x 0.8 cm, 100% slough; Midline, lower abdomen -- 4.1 x 21.) Heart: Regular Rate Abdomen: Normal Bowel Sounds, Soft, No Tenderness, Other (colostomy functioning midline surgicaal sites as per dr chavez) Skin: Other (Midline upper -- 5.7 x 1.2 x 0.8 cm, 100% slough; midline lower abdomen -- 4.1 x 2.0 x 2.7 cm, 50% slough, 50% granulation; sacrum -- 8.3 x 9.5 x 1.7 cm, 50% slough, 50% granulation. 2 cm Stage 1 of R hip) Neuro: Other (Generalized weakness) Results Lab Laboratory Tests 04/19/17 09:08: White Blood Count 9.4, Red Blood Count 2.44L, Hemoglobin 7.4L, Hematocrit 24L, Mean Corpuscular Volume 98, Mean Corpuscular Hemoglobin 30, Mean Corpuscular Hemoglobin Concent 31L, Red Cell Distribution Width 15.1H, Platelet Count 433H, Mean Platelet Volume 9.1, Neutrophils (%) (Auto) 81H, Lymphocytes (%) (Auto) 10L , Monocytes (%) (Auto) 8, Eosinophils (%) (Auto) 2, Basophils (%) (Auto) 0, Neutrophils # (Auto) 7.5, Lymphocytes # (Auto) 0.9L, Monocytes # (Auto) 0.7, Eosinophils # (Auto) 0.2, Basophils # (Auto) 0.0, Sodium Level 138, Potassium Level 4.7, Chloride Level 104, Carbon Dioxide Level 24, Anion Gap 10, Blood Urea Nitrogen 18, Creatinine 1.22, Estimat Glomerular Filtration Rate 60, BUN/ Creatinine Ratio 15, Glucose Level 102, Calcium Level 9.0, Iron Level 25L, Total Bilirubin 0.3, Aspartate Amino Transf (AST/SGOT) 15, Alanine Aminotransferase (ALT/SGPT) 16, Alkaline Phosphatase 52, Total Protein 6.6, Albumin 3.0L Assessment/Plan Assessment s/p AAA repair OSH with open wounds abdominal midline being treated with topical care Postop ischemic colitis s/p colostomy Sacral pressure sore Postop anemia-stable 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 LEISA GEORGE MD Apr 20, 2017 20:24
[2017-04-20] MEDS: MIRTAZAPINE 15 MG (REMERON) TAB PO SCH (20:43)
[2017-04-21] MEDS: PANTOPRAZOLE 40 MG (PROTONIX) TAB PO SCH (06:31)
[2017-04-21] MEDS: MULTIVIT W/MINERALS TAB (THERAGRAN M) PO SCH (06:31)
[2017-04-21] MEDS: IRON POLYSAC 150 MG CAP (NIFEREX) PO SCH ×2 (06:31→17:14)
[2017-04-21 06:33] VITALS: BP 100/64
[2017-04-21] MEDS: DIVALPROEX 250 MG DELAYED RELEASE (DEPAKOTE) TAB PO SCH ×2 (08:14→20:21)
[2017-04-21] MEDS: MELOXICAM 7.5 MG (MOBIC) TABLET PO SCH (08:15)
[2017-04-21] MEDS: MAGNESIUM OXIDE (MAG-OX)400 MG TAB PO SCH ×2 (08:15→17:14)
[2017-04-21] MEDS: HYDROcodone/APAP 10 MG/325 MG (LORTAB) TAB PO PRN ×2 (08:16→12:05)
[2017-04-21] MEDS: NICOTINE 14 MG (NICODERM) PATCH TD SCH (08:19)
--- NOTE | 2017-04-21 08:45 | Occupational Ther Daily Note ---
OT Current Status-Daily Note Subjective Pt alert, lying in bed. Pt stated that his R shldr hurt because he had slept on it for so long. Pt get emotional and stated what had he done to deserve all of this. COLLADO offered to reach out to one of the trousseau consultant's, pt declined. Pt agreed to therapy. Mental Status/Objective Patient Orientation: Person, Place, Time, Situation Functional [place] Measure 0=Not Assessed/NA 4=Minimal Assistance 1=Total Assistance 5=Supervision or Setup 2=Maximal Assistance 6=Modified [place] 3=Moderate Assistance 7=Complete [place] Attachments: Colostomy/Ileostomy, Drains, Marquez Catheter ADL-Treatment Declines shower or sponge bath today. Functional [place] Measure 0=Not Assessed/NA 4=Minimal Assistance 1=Total Assistance 5=Supervision or Setup 2=Maximal Assistance 6=Modified [place] 3=Moderate Assistance 7=Complete IndependenceIRFPAI Quality Coding Scale 6 Independent with activity with or without an assistive device 5 Patient requires set up or clean up by helper. Patient completes activity by themselves 4 Supervision or touching assist (CGA). [place] provide cues , steadying assist 3 The helper provides less than half the effort to complete the activity 2 The helper provides more than half the effort to complete the activity 1 Dependent. The helper does all the effort to complete an activity 7 Patient refused to complete or attempt activity 9 The patient did not perform the activity before the current illness or injury 88 Not attempted due to Medical conditions or safety concerns Eating (FIM): 6 (Completes own set up and feeds self.) Eating (QC): 6 Grooming (FIM): 6 (At w/c level sitting at sink completes own grooming.) Oral Hygiene (QC): 6 Other Treatment Pt c/o pain in shldr and being stiff today. Pt was able to go from supine to sitting EOB with HOB slightly raised by self. Stand pivot transfer to w/c with CGA. Pt then was transported to therapy gym due to c/o R hand not functioning properly. Pt then completed bilateral UE task to increase dexterity and strength of hand/mobile unit assistant. Pt had difficulty with grading mobile unit assistant strength and required modifications to complete task. After therapy, pt in care of PT. All needs met. OT Short Term Goals Short Term Goals Time Frame: Apr 15, 2017 Grooming(FIM): 5 Lower Body Dressing(FIM): 4 Transfers (B,C,W/C) (FIM): 3 (met) 1=Demonstrate adherence to instructed precautions during ADL tasks. 2=Patient will verbalize/demonstrate understanding of assistive devices/ modifications for ADL. 3=Patient will improve strength/tolerance for activity to enable patient to perform ADL's. OT Control Room Tender Goals Control Room Tender Goals Time Frame: May 01, 2017 Eating (FIM): 6 Eating (QC): 6 Groomin Oral Hygiene (QC): 6 Bathing(FIM): 6 Shower/Bathe Self (QC): 6 Upper Body Dressing(FIM): 6 Upper Body Dressing (QC): 6 Lower Body Dressing(FIM): 6 Lower Body Dressing (QC): 6 On/Off Footwear (QC): 6 Toileting(FIM): 6 Toileting Hygiene (QC): 6 Toilet/Commode Transfer(FIM): 6 Toilet/Commode Transfer (QC): 6 Shower Transfer(FIM): 6 Comprehension(FIM): 4 (MET) Expression (FIM): 5 (MET) Social Interaction(FIM): 4 (MET) Problem Solving(FIM): 4 (MET) Memory(FIM): 4 (MET) Additional Goals: 1-Demonstrate ADL Tasks, 2-Verbalize Understanding, 3- ImproveStrength/Lidia 1=Demonstrate adherence to instructed precautions during ADL tasks. 2=Patient will verbalize/demonstrate understanding of assistive devices/ modifications for ADL. 3=Patient will improve strength/tolerance for activity to enable patient to perform ADL's. OT Education/Plan Problem List/Assessment Pt would benefit from skilled OT to increase his independence in basic self care to allow him to safely return to his home to live with his and to decrease caregiver burden after multiple surgeries and medical conditions. Discharge Recommendations Plan/Recommendations: Continue POC Treatment Plan/Plan of Care Patient would benefit from OT for education, treatment and training to promote independence in ADL's, mobility, safety and/or upper extremity function for ADL' s. Plan of Care: ADL Retraining, Caregiver Training, Functional Mobility, Group Exercise/Act as Ind (education, exercise, funct activities, activ tolerance, funct mobility, sociallization), UE Funct Exercise/Act, UE Neuromus Re-Ed/Coord Treatment Duration: May 01, 2017 Frequency: At least 5 of 7 days/Wk (IRF) Estimated Hrs Per Day: 1.5 hours per day Agreement: Yes Rehab Potential: Fair Time/GCodes Start Time: 08:00 Stop Time: 09:00 Total Time Billed (hr/min): 60 Billed Treatment Time 1 visit-FA 4 (60 min) LUIS ANTONIO FOWLER Apr 21, 2017 08:45
[2017-04-21] MEDS: NICOTINE PATCH REMOVAL TP SCH (08:59)
--- NOTE | 2017-04-21 09:16 | PM & R (SOAP) Progress Note ---
Subjective Time Seen by Provider: 08:10 Subjective/Events-last exam Patient was seen in his room this AM Case discussed with Nursing Patient and family to have ostomy training in preparation for discharge to home with spouse in [place] Patient CGA for gait with WW Pain control better with D Patch- Nursing to monitor for increased sedation or constipation Objective Exam Last Set of Vital Signs Vital Signs Date Time Temp Pulse Resp B/P (MAP) Pulse Ox O2 Delivery O2 Flow Rate FiO2 04/21/17 06:33 98.4 90 16 100/64 (76) 95 Room Air Capillary Refill : I&O Intake and Output 04/21/17 00:00 Intake Total 750 ml Output Total 1775 ml Balance -1025 ml Intake Oral 750 ml Output Urine Total 1350 ml Stool Total 425 ml General: Alert, Oriented X3, Cooperative, No Acute Distress, Mild Distress HEENT: Atraumatic, PERRLA, EOMI, Mucous Memb Moist/[place] Neck: Supple, No JVD Lungs: Clear to Auscultation, Normal Air Movement (Midline upper abdomen -- 5.7 x 1.2 x 0.8 cm, 100% slough; Midline, lower abdomen -- 4.1 x 21.) Heart: Regular Rate Abdomen: Normal Bowel Sounds, Soft, No Tenderness, Other (colostomy functioning midline surgicaal sites as per dr chavez) Skin: Other (Midline upper -- 5.7 x 1.2 x 0.8 cm, 100% slough; midline lower abdomen -- 4.1 x 2.0 x 2.7 cm, 50% slough, 50% granulation; sacrum -- 8.3 x 9.5 x 1.7 cm, 50% slough, 50% granulation. 2 cm Stage 1 of R hip) Neuro: Other (Generalized weakness) Results Lab Laboratory Tests 04/19/17 09:08: White Blood Count 9.4, Red Blood Count 2.44L, Hemoglobin 7.4L, Hematocrit 24L, Mean Corpuscular Volume 98, Mean Corpuscular Hemoglobin 30, Mean Corpuscular Hemoglobin Concent 31L, Red Cell Distribution Width 15.1H, Platelet Count 433H, Mean Platelet Volume 9.1, Neutrophils (%) (Auto) 81H, Lymphocytes (%) (Auto) 10L , Monocytes (%) (Auto) 8, Eosinophils (%) (Auto) 2, Basophils (%) (Auto) 0, Neutrophils # (Auto) 7.5, Lymphocytes # (Auto) 0.9L, Monocytes # (Auto) 0.7, Eosinophils # (Auto) 0.2, Basophils # (Auto) 0.0, Sodium Level 138, Potassium Level 4.7, Chloride Level 104, Carbon Dioxide Level 24, Anion Gap 10, Blood Urea Nitrogen 18, Creatinine 1.22, Estimat Glomerular Filtration Rate 60, BUN/ Creatinine Ratio 15, Glucose Level 102, Calcium Level 9.0, Iron Level 25L, Total Bilirubin 0.3, Aspartate Amino Transf (AST/SGOT) 15, Alanine Aminotransferase (ALT/SGPT) 16, Alkaline Phosphatase 52, Total Protein 6.6, Albumin 3.0L Assessment/Plan Assessment s/p AAA repair OSH with open wounds abdominal midline being treated with topical care and wound vac Postop ischemic colitis s/p colostomy Sacral pressure sore Postop anemia-stable 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 Family patient training re colostomy care and pressure relief for sacral pressure sore Dr Taylor covering my service while I am away from 04-22-17 [facility] 04-28 LEISA GEORGE MD Apr 21, 2017 09:16
--- NOTE | 2017-04-21 10:00 | Physical Therapy Daily Note ---
PT Daily Note-Current Subjective Patient in wheelchair pre tx, agrees to PT, has 8-9/10 pain in his bottom, nurse notified. Appearance Patient in bed post tx, has nurse call, phone, tray, all needs met. Mental Status Attachments: Colostomy/Ileostomy, Marquez Catheter wound vac Transfers Functional [place] Measure 0=Not Assessed/NA 4=Minimal Assistance 1=Total Assistance 5=Supervision or Setup 2=Maximal Assistance 6=Modified [place] 3=Moderate Assistance 7=Complete IndependenceIRFPAI Quality Coding Scale 6 Independent with activity with or without an assistive device 5 Patient requires set up or clean up by helper. Patient completes activity by themselves 4 Supervision or touching assist (CGA). [place] provide cues , steadying assist 3 The helper provides less than half the effort to complete the activity 2 The helper provides more than half the effort to complete the activity 1 Dependent. The helper does all the effort to complete an activity 7 Patient refused to complete or attempt activity 9 The patient did not perform the activity before the current illness or injury 88 Not attempted due to Medical conditions or safety concerns Transfers (B, C, W/C) (FIM): 4 Scootin Rollin Supine to/from Sit: 5 Sit to/from Stand: 4 (CGA) Bed to/from Chair: 4 (Leanne) Gait Training Gait (FIM): 2 Distance: 100', 70', 50' Gait Level of Assist: 4 Gait Persons Needed: 1 Gait Assistive Device: FWW wheelchair follow, CGA, occasional standing rest break, used an AFO on the right side for toe clearance Wheelchair Training Does the Pt Use a Wheelchair?: Yes Wheelchair (FIM): 6 Distance: 150'x2 Type of Wheelchair: Manual Exercises Seated Therapy Exercises: Hip flexion, Hip abd/add Seated Reps: 20 Standing: Heel/toe raises, Marching, Mini squats Standing Reps: 20 LAQ alternating for 5 min, sit to stand 3 sets of 5 Treatments bed mobility and transfers, ambulation, wheelchair mobility, functional strengthening Assessment Current Status: Fair Progress improving ambulation and endurance PT Short Term Goals Short Term Goals Time Frame: Apr 15, 2017 Transfers (B,C,W/C) (FIM): 3 (met) Gait (FIM): 1 (met) Gait Distance Comment: 10' Gait Level of Assist: 4 Gait Assistive Device: FWW Wheelchair Distance: 150'x2 PT Fdc Goals Fdc Goals PT Spacer Type Bar And Segment Goals Time Frame: Apr 29, 2017 Transfers (B,C,W/C) (FIM): 4 Sit to Lying (QC): 6 Lying-Sitting on Side/Bed(QC): 6 Sit to Stand (QC): 3 Rollin Roll Left to Right (QC): 6 Chair/Jal-hr-Mvavt Xfer(QC): 3 Car Transfer (QC): 3 Gait (FIM): 1 Distance: 25' Walk 10 feet (QC): 4 Walk 10ft-Uneven Surface(QC): 4 Walk 50ft with 2 Turns (QC): 88 Walk 150 ft (QC): 88 Gait Level of Assist: 4 Gait Assistive Device: FWW Stairs (FIM): 1 # of Steps: 1 1 Step (curb) (QC): 4 PT Plan Problem List Problem List: Activity Tolerance, Functional Strength, Safety, Balance, Gait, Transfer, Bed Mobility, ROM Treatment/Plan Treatment Plan: Continue Plan of Care Treatment Plan: Bed Mobility, Concurrent Therapy, Education, Functional Activity Lidia, Functional Strength, Group Therapy, Gait, Safety, Therapeutic Exercise, Transfers Treatment Duration: Apr 29, 2017 Frequency: At least 5 of 7 days/Wk (IRF) Estimated Hrs Per Day: 1.5 hours per day Patient and/or Family Agrees t: Yes Safety Risks/Education Patient Education: Gait Training, Transfer Techniques, Correct Positioning, W/ C Management, Safety Issues Teaching Recipient: Patient Teaching Methods: Demonstration, Discussion Response to Teaching: Reinforcement Needed Time/GCodes Time In: 900 Time Out: 1000 Total Billed Treatment Time: 60 Total Billed Treatment 1 visit [facility] 10' GT 30' EX 20' YARIEL GRUBER PT Apr 21, 2017 10:00
[2017-04-21] MEDS: DAKIN'S 1/4 STRENGTH (0.125%) 473 ML BTL TOP SCH ×2 (10:06→20:21)
--- NOTE | 2017-04-21 13:31 | Occupational Ther Daily Note ---
OT Current Status-Daily Note Subjective Pt sleeping in bed, woke easily to name. Pt agreed to therapy. No c/o pain at this time. Mental Status/Objective Patient Orientation: Person, Place, Time, Situation Functional [employer] Measure 0=Not Assessed/NA 4=Minimal Assistance 1=Total Assistance 5=Supervision or Setup 2=Maximal Assistance 6=Modified [employer] 3=Moderate Assistance 7=Complete [employer] ADL-Treatment Functional [employer] Measure 0=Not Assessed/NA 4=Minimal Assistance 1=Total Assistance 5=Supervision or Setup 2=Maximal Assistance 6=Modified [employer] 3=Moderate Assistance 7=Complete IndependenceIRFPAI Quality Coding Scale 6 Independent with activity with or without an assistive device 5 Patient requires set up or clean up by helper. Patient completes activity by themselves 4 Supervision or touching assist (CGA). [place] provide cues , steadying assist 3 The helper provides less than half the effort to complete the activity 2 The helper provides more than half the effort to complete the activity 1 Dependent. The helper does all the effort to complete an activity 7 Patient refused to complete or attempt activity 9 The patient did not perform the activity before the current illness or injury 88 Not attempted due to Medical conditions or safety concerns Other Treatment Supine to sitting EOB with HOB raised by self. SBA for stand pivot transfer from EOB to w/c. Pt then maneuvered w/c to therapy gym. Pt completed dowel pino UE exercises with 2# wt attached, 4 exercises 3 sets 10 reps. Then completed regional planner strengthening exercise, 3 sets 10 reps. Pt then stated that he was tired. Fine motor tasks then completed to work on B UE and dexterity of R hand to increase manipulation skills for dressing and grooming. Pt wanted to know about his anti-depressant medication, COLLADO asked nrsg. After OT treatment , PT took over care of pt. All needs met. OT Short Term Goals Short Term Goals Time Frame: Apr 15, 2017 Grooming(FIM): 5 Lower Body Dressing(FIM): 4 Transfers (B,C,W/C) (FIM): 3 (met) 1=Demonstrate adherence to instructed precautions during ADL tasks. 2=Patient will verbalize/demonstrate understanding of assistive devices/ modifications for ADL. 3=Patient will improve strength/tolerance for activity to enable patient to perform ADL's. OT Correction Goals Correction Goals Time Frame: May 01, 2017 Eating (FIM): 6 Eating (QC): 6 Groomin Oral Hygiene (QC): 6 Bathing(FIM): 6 Shower/Bathe Self (QC): 6 Upper Body Dressing(FIM): 6 Upper Body Dressing (QC): 6 Lower Body Dressing(FIM): 6 Lower Body Dressing (QC): 6 On/Off Footwear (QC): 6 Toileting(FIM): 6 Toileting Hygiene (QC): 6 Toilet/Commode Transfer(FIM): 6 Toilet/Commode Transfer (QC): 6 Shower Transfer(FIM): 6 Comprehension(FIM): 4 (MET) Expression (FIM): 5 (MET) Social Interaction(FIM): 4 (MET) Problem Solving(FIM): 4 (MET) Memory(FIM): 4 (MET) Additional Goals: 1-Demonstrate ADL Tasks, 2-Verbalize Understanding, 3- ImproveStrength/Lidia 1=Demonstrate adherence to instructed precautions during ADL tasks. 2=Patient will verbalize/demonstrate understanding of assistive devices/ modifications for ADL. 3=Patient will improve strength/tolerance for activity to enable patient to perform ADL's. OT Education/Plan Problem List/Assessment Pt would benefit from skilled OT to increase his independence in basic self care to allow him to safely return to his home to live with his and to decrease caregiver burden after multiple surgeries and medical conditions. Discharge Recommendations Plan/Recommendations: Continue POC Treatment Plan/Plan of Care Patient would benefit from OT for education, treatment and training to promote independence in ADL's, mobility, safety and/or upper extremity function for ADL' s. Plan of Care: ADL Retraining, Caregiver Training, Functional Mobility, Group Exercise/Act as Ind (education, exercise, funct activities, activ tolerance, funct mobility, sociallization), UE Funct Exercise/Act, UE Neuromus Re-Ed/Coord Treatment Duration: May 01, 2017 Frequency: At least 5 of 7 days/Wk (IRF) Estimated Hrs Per Day: 1.5 hours per day Agreement: Yes Rehab Potential: Fair Time/GCodes Start Time: 12:45 Stop Time: 13:15 Total Time Billed (hr/min): 30 Billed Treatment Time 1 visit-FA 1 (10 min) EX 1 (20 min) LUIS ANTONIO FOWLER Apr 21, 2017 13:30
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
--- NOTE | 2017-04-21 13:44 | Physical Therapy Daily Note ---
PT Daily Note-Current Subjective Patient in wheelchair in therapy gym pre tx, agrees to PT, he just got done with OT, has pain of 8/10 in his bottom. Appearance Patient in bed post tx with nurse call, phone, tray, all needs met. Mental Status Patient Orientation: Normal For Age Attachments: Colostomy/Ileostomy, Marquez Catheter wound vac Transfers Functional [place] Measure 0=Not Assessed/NA 4=Minimal Assistance 1=Total Assistance 5=Supervision or Setup 2=Maximal Assistance 6=Modified [place] 3=Moderate Assistance 7=Complete IndependenceIRFPAI Quality Coding Scale 6 Independent with activity with or without an assistive device 5 Patient requires set up or clean up by helper. Patient completes activity by themselves 4 Supervision or touching assist (CGA). [place] provide cues , steadying assist 3 The helper provides less than half the effort to complete the activity 2 The helper provides more than half the effort to complete the activity 1 Dependent. The helper does all the effort to complete an activity 7 Patient refused to complete or attempt activity 9 The patient did not perform the activity before the current illness or injury 88 Not attempted due to Medical conditions or safety concerns Transfers (B, C, W/C) (FIM): 4 Scootin Rollin Supine to/from Sit: 5 Sit to/from Stand: 4 Bed to/from Chair: 4 Gait Training Gait (FIM): 2 Distance: 50', 50', 30' Gait Level of Assist: 4 Gait Persons Needed: 1 Gait Assistive Device: FWW wheelchair follow, patient more fatigued this afternoon, CGA Exercises Supine Ex: Ankle pumps, Quad Set, Heel Slides Supine Reps: 20 Treatments bed mobility, transfers, ambulation, functional strengthening Assessment Current Status: Fair Progress improved transfers PT Short Term Goals Short Term Goals Time Frame: Apr 15, 2017 Transfers (B,C,W/C) (FIM): 3 (met) Gait (FIM): 1 (met) Gait Distance Comment: 10' Gait Level of Assist: 4 Gait Assistive Device: FWW Wheelchair Distance: 150'x2 PT Boring Machine Operator Helper Goals Long-Term Goals PT Boring Machine Operator Helper Goals Time Frame: Apr 29, 2017 Transfers (B,C,W/C) (FIM): 4 Sit to Lying (QC): 6 Lying-Sitting on Side/Bed(QC): 6 Sit to Stand (QC): 3 Rollin Roll Left to Right (QC): 6 Chair/Sre-us-Aubbd Xfer(QC): 3 Car Transfer (QC): 3 Gait (FIM): 1 Distance: 25' Walk 10 feet (QC): 4 Walk 10ft-Uneven Surface(QC): 4 Walk 50ft with 2 Turns (QC): 88 Walk 150 ft (QC): 88 Gait Level of Assist: 4 Gait Assistive Device: FWW Stairs (FIM): 1 # of Steps: 1 1 Step (curb) (QC): 4 PT Plan Problem List Problem List: Activity Tolerance, Functional Strength, Safety, Balance, Gait, Transfer, Bed Mobility, ROM Treatment/Plan Treatment Plan: Continue Plan of Care Treatment Plan: Bed Mobility, Concurrent Therapy, Education, Functional Activity Lidia, Functional Strength, Group Therapy, Gait, Safety, Therapeutic Exercise, Transfers Treatment Duration: Apr 29, 2017 Frequency: At least 5 of 7 days/Wk (IRF) Estimated Hrs Per Day: 1.5 hours per day Patient and/or Family Agrees t: Yes Safety Risks/Education Patient Education: Gait Training, Transfer Techniques, Correct Positioning, Safety Issues Teaching Recipient: Patient Teaching Methods: Demonstration, Discussion Response to Teaching: Reinforcement Needed Time/GCodes Time In: 1315 Time Out: 1345 Total Billed Treatment Time: 30 Total Billed Treatment 1 visit EX 10' GT 20' YARIEL GRUBER PT Apr 21, 2017 13:44
[2017-04-21] MEDS: fentaNYL PATCH 100 MCG (DURAGESIC) TD SCH (14:10)
[2017-04-21] MEDS: FENTANYL PATCH REMOVAL TP SCH (14:11)
[2017-04-21 19:20] VITALS: BP 93/57
[2017-04-21] MEDS: MIRTAZAPINE 15 MG (REMERON) TAB PO SCH (20:21)
[2017-04-22] MEDS: HYDROcodone/APAP 10 MG/325 MG (LORTAB) TAB PO PRN ×4 (06:27→21:49)
[2017-04-22] MEDS: IRON POLYSAC 150 MG CAP (NIFEREX) PO SCH ×2 (06:27→17:44)
[2017-04-22] MEDS: MULTIVIT W/MINERALS TAB (THERAGRAN M) PO SCH (06:27)
[2017-04-22] MEDS: PANTOPRAZOLE 40 MG (PROTONIX) TAB PO SCH (06:27)
[2017-04-22 06:46] VITALS: BP 108/69
[2017-04-22] MEDS: MELOXICAM 7.5 MG (MOBIC) TABLET PO SCH (09:18)
[2017-04-22] MEDS: MAGNESIUM OXIDE (MAG-OX)400 MG TAB PO SCH ×2 (09:18→17:44)
[2017-04-22] MEDS: DIVALPROEX 250 MG DELAYED RELEASE (DEPAKOTE) TAB PO SCH ×2 (09:18→20:42)
[2017-04-22] MEDS: NICOTINE PATCH REMOVAL TP SCH (09:19)
[2017-04-22] MEDS: NICOTINE 14 MG (NICODERM) PATCH TD SCH (09:19)
[2017-04-22] MEDS: DAKIN'S 1/4 STRENGTH (0.125%) 473 ML BTL TOP SCH ×2 (09:22→22:46)
--- NOTE | 2017-04-22 11:38 | Occupational Ther Daily Note ---
OT Current Status-Daily Note Subjective Pt in bed, agrees to treatment. Pt reports 7/10 pain in buttocks. Mental Status/Objective Functional [place] Measure 0=Not Assessed/NA 4=Minimal Assistance 1=Total Assistance 5=Supervision or Setup 2=Maximal Assistance 6=Modified [place] 3=Moderate Assistance 7=Complete [place] Attachments: Marquez Catheter, Other-See Comments ADL-Treatment Pt requests shower this morning. Supine to sit with SBA using bed rail. Transfer EOB to w/c with CGA. Pt retrieved clothing from closet without assistance while seated in w/c. Transfer w/c to shower with CGA using grab bars for balance and safety. Pt able to doff socks with SBA. Assist required to doff shorts secondary to decreased standing balance. Bathing completed with wound vac covered to prevent getting wet. Pt able to complete bathing with SBA and increased time. Transfer back to w/c with CGA. Grooming tasks completed seated at sink. Pt combed hair and shaved with modified independence. Pt states he has already brushed teeth earlier this morning. Pt transferred back to bed and RN changed dressing on buttocks wound. Donned shorts while in bed with assist to start over feet. Pt able to roll side to side to pull shorts up over hips. Pt declined to don shirt at this time. Functional [place] Measure 0=Not Assessed/NA 4=Minimal Assistance 1=Total Assistance 5=Supervision or Setup 2=Maximal Assistance 6=Modified [place] 3=Moderate Assistance 7=Complete IndependenceIRFPAI Quality Coding Scale 6 Independent with activity with or without an assistive device 5 Patient requires set up or clean up by helper. Patient completes activity by themselves 4 Supervision or touching assist (CGA). [place] provide cues , steadying assist 3 The helper provides less than half the effort to complete the activity 2 The helper provides more than half the effort to complete the activity 1 Dependent. The helper does all the effort to complete an activity 7 Patient refused to complete or attempt activity 9 The patient did not perform the activity before the current illness or injury 88 Not attempted due to Medical conditions or safety concerns Grooming (FIM): 6 Bathing (FIM): 5 Shower/Bathe Self (QC): 4 Other Treatment Pt completed bilateral UE exercises to promote increased strength needed for ADLs and transfers. Pt completed four exercises x10 reps using mild resistance ( yellow) theraband. Rest breaks taken between exercises. Pt resting in bed with needs met after session. OT Short Term Goals Short Term Goals Time Frame: Apr 15, 2017 Grooming(FIM): 5 Lower Body Dressing(FIM): 4 Transfers (B,C,W/C) (FIM): 3 (met) 1=Demonstrate adherence to instructed precautions during ADL tasks. 2=Patient will verbalize/demonstrate understanding of assistive devices/ modifications for ADL. 3=Patient will improve strength/tolerance for activity to enable patient to perform ADL's. OT Residential Goals Helper Maintenance Cleaning Goals Time Frame: May 01, 2017 Eating (FIM): 6 Eating (QC): 6 Groomin Oral Hygiene (QC): 6 Bathing(FIM): 6 Shower/Bathe Self (QC): 6 Upper Body Dressing(FIM): 6 Upper Body Dressing (QC): 6 Lower Body Dressing(FIM): 6 Lower Body Dressing (QC): 6 On/Off Footwear (QC): 6 Toileting(FIM): 6 Toileting Hygiene (QC): 6 Toilet/Commode Transfer(FIM): 6 Toilet/Commode Transfer (QC): 6 Shower Transfer(FIM): 6 Comprehension(FIM): 4 (MET) Expression (FIM): 5 (MET) Social Interaction(FIM): 4 (MET) Problem Solving(FIM): 4 (MET) Memory(FIM): 4 (MET) Additional Goals: 1-Demonstrate ADL Tasks, 2-Verbalize Understanding, 3- ImproveStrength/Lidia 1=Demonstrate adherence to instructed precautions during ADL tasks. 2=Patient will verbalize/demonstrate understanding of assistive devices/ modifications for ADL. 3=Patient will improve strength/tolerance for activity to enable patient to perform ADL's. OT Education/Plan Problem List/Assessment Pt would benefit from skilled OT to increase his independence in basic self care to allow him to safely return to his home to live with his and to decrease caregiver burden after multiple surgeries and medical conditions. Discharge Recommendations Plan/Recommendations: Continue POC Treatment Plan/Plan of Care Patient would benefit from OT for education, treatment and training to promote independence in ADL's, mobility, safety and/or upper extremity function for ADL' s. Plan of Care: ADL Retraining, Caregiver Training, Functional Mobility, Group Exercise/Act as Ind (education, exercise, funct activities, activ tolerance, funct mobility, sociallization), UE Funct Exercise/Act, UE Neuromus Re-Ed/Coord Treatment Duration: May 01, 2017 Frequency: At least 5 of 7 days/Wk (IRF) Estimated Hrs Per Day: 1.5 hours per day Agreement: Yes Rehab Potential: Fair Time/GCodes Start Time: 08:00 Stop Time: 09:30 Total Time Billed (hr/min): 90 Billed Treatment Time 1 visit, ADLx5(75minutes), Ex(15minutes) ACACIA ASKEW OT Apr 22, 2017 11:38
--- NOTE | 2017-04-22 12:58 | Physical Therapy Daily Note ---
PT Daily Note-Current Subjective Pt. hesitates to participate in therapies. States he is tired and discouraged. This BATTERY WRECKER OPERATOR reminding pt. of his progress Pain Numeric Pain Scale: 0-No Pain Mental Status Attachments: Marquez Catheter, Other-See Comments (wound vacc and AFO right foot) Transfers Functional [place] Measure 0=Not Assessed/NA 4=Minimal Assistance 1=Total Assistance 5=Supervision or Setup 2=Maximal Assistance 6=Modified [place] 3=Moderate Assistance 7=Complete IndependenceIRFPAI Quality Coding Scale 6 Independent with activity with or without an assistive device 5 Patient requires set up or clean up by helper. Patient completes activity by themselves 4 Supervision or touching assist (CGA). [place] provide cues , steadying assist 3 The helper provides less than half the effort to complete the activity 2 The helper provides more than half the effort to complete the activity 1 Dependent. The helper does all the effort to complete an activity 7 Patient refused to complete or attempt activity 9 The patient did not perform the activity before the current illness or injury 88 Not attempted due to Medical conditions or safety concerns Transfers (B, C, W/C) (FIM): 4 Scootin Rollin Supine to/from Sit: 5 Sit to/from Stand: 4 Bed to/from Chair: 4 Gait Training Does the Patient Walk?: Yes Gait (FIM): 5 Distance (FIM): 3=150 ft (x1) Gait Level of Assist: 5 Gait Persons Needed: 1 Gait Assistive Device: FWW wc follow up and assist to keep tubes and lines insitu Wheelchair Training Does the Pt Use a Wheelchair?: Yes Wheelchair (FIM): 6 Wheelchair Distance: 3=150 ft (x3) Wheelchair Level of Assist: 6 Type of Wheelchair: Manual Exercises Supine Ex: Bridging, Ankle pumps, Quad Set, Rolling, Glut sets, Heel Slides, Short Arc Quads, Scooting, Straight leg raise, Hip abd/add Supine Reps: 15 Assessment Current Status: Good Progress PT Short Term Goals Short Term Goals Time Frame: Apr 15, 2017 Transfers (B,C,W/C) (FIM): 3 (met) Gait (FIM): 1 (met) Gait Distance Comment: 10' Gait Level of Assist: 4 Gait Assistive Device: FWW Wheelchair Distance: 150'x2 PT Assisted Goals Living Specialist Goals PT Living Specialist Goals Time Frame: Apr 29, 2017 Transfers (B,C,W/C) (FIM): 4 Sit to Lying (QC): 6 Lying-Sitting on Side/Bed(QC): 6 Sit to Stand (QC): 3 Rollin Roll Left to Right (QC): 6 Chair/Coh-ci-Fcdtl Xfer(QC): 3 Car Transfer (QC): 3 Gait (FIM): 1 Distance: 25' Walk 10 feet (QC): 4 Walk 10ft-Uneven Surface(QC): 4 Walk 50ft with 2 Turns (QC): 88 Walk 150 ft (QC): 88 Gait Level of Assist: 4 Gait Assistive Device: FWW Stairs (FIM): 1 # of Steps: 1 1 Step (curb) (QC): 4 PT Plan Treatment/Plan Treatment Plan: Continue Plan of Care Treatment Plan: Bed Mobility, Concurrent Therapy, Education, Functional Activity Lidia, Functional Strength, Group Therapy, Gait, Safety, Therapeutic Exercise, Transfers Treatment Duration: Apr 29, 2017 Frequency: At least 5 of 7 days/Wk (IRF) Estimated Hrs Per Day: 1.5 hours per day Patient and/or Family Agrees t: Yes Safety Risks/Education Patient Education: Gait Training, Transfer Techniques, Correct Positioning, W/ C Management, Disease Process, Safety Issues Teaching Recipient: Patient Teaching Methods: Demonstration, Discussion Response to Teaching: Verbalize Understanding, Return Demonstration, Reinforcement Needed Time/GCodes Time In: 1000 Time Out: 1100 Total Billed Treatment Time: 60 Total Billed Treatment 1,GT15m,EX15m,FA15m,WC15m G Codes Necessary: MOMO Brasher PTA Apr 22, 2017 12:58
--- NOTE | 2017-04-22 13:35 | Physical Therapy Daily Note ---
PT Daily Note-Current Subjective Pt. agrees to Rx. States he ordered lunch and it wasnt good so he is ordering another tray after Rx. Transfers Functional [place] Measure 0=Not Assessed/NA 4=Minimal Assistance 1=Total Assistance 5=Supervision or Setup 2=Maximal Assistance 6=Modified [place] 3=Moderate Assistance 7=Complete IndependenceIRFPAI Quality Coding Scale 6 Independent with activity with or without an assistive device 5 Patient requires set up or clean up by helper. Patient completes activity by themselves 4 Supervision or touching assist (CGA). [place] provide cues , steadying assist 3 The helper provides less than half the effort to complete the activity 2 The helper provides more than half the effort to complete the activity 1 Dependent. The helper does all the effort to complete an activity 7 Patient refused to complete or attempt activity 9 The patient did not perform the activity before the current illness or injury 88 Not attempted due to Medical conditions or safety concerns sit to stands and SPTs all SBA to CGA Gait Training Gait Assistive Device: FWW 25ft FWW CGA Wheelchair Training Type of Wheelchair: Manual [id number] SBA Exercises Seated Therapy Exercises: Ankle pumps, Sit to stand, Long arc quads, Hip flexion Seated Reps: 10 Standing: Hip Abduction, Marching, Mini squats, Sit to Stand Standing Reps: 15 Assessment Current Status: Good Progress PT Short Term Goals Short Term Goals Time Frame: Apr 15, 2017 Transfers (B,C,W/C) (FIM): 3 (met) Gait (FIM): 1 (met) Gait Distance Comment: 10' Gait Level of Assist: 4 Gait Assistive Device: FWW Wheelchair Distance: 150'x2 PT Service Worker Goals Correction Goals PT Correction Goals Time Frame: Apr 29, 2017 Transfers (B,C,W/C) (FIM): 4 Sit to Lying (QC): 6 Lying-Sitting on Side/Bed(QC): 6 Sit to Stand (QC): 3 Rollin Roll Left to Right (QC): 6 Chair/Ftz-st-Cxhjn Xfer(QC): 3 Car Transfer (QC): 3 Gait (FIM): 1 Distance: 25' Walk 10 feet (QC): 4 Walk 10ft-Uneven Surface(QC): 4 Walk 50ft with 2 Turns (QC): 88 Walk 150 ft (QC): 88 Gait Level of Assist: 4 Gait Assistive Device: FWW Stairs (FIM): 1 # of Steps: 1 1 Step (curb) (QC): 4 PT Plan Treatment/Plan Treatment Plan: Continue Plan of Care Treatment Plan: Bed Mobility, Concurrent Therapy, Education, Functional Activity Lidia, Functional Strength, Group Therapy, Gait, Safety, Therapeutic Exercise, Transfers Treatment Duration: Apr 29, 2017 Frequency: At least 5 of 7 days/Wk (IRF) Estimated Hrs Per Day: 1.5 hours per day Patient and/or Family Agrees t: Yes Safety Risks/Education Patient Education: Gait Training, Transfer Techniques, Correct Positioning, W/ C Management Time/GCodes Time In: 1300 Time Out: 1330 Total Billed Treatment Time: 30 Total Billed Treatment 1,EX15m,FA15m G Codes Necessary: MOMO Brasher MACHINE [employer]MER Apr 22, 2017 13:35
[2017-04-22 19:01] VITALS: BP 104/63
[2017-04-22] MEDS: IBUPROFEN TABLET 200 MG TAB PO PRN (19:44)
[2017-04-22] MEDS ORDERED: ACETAMINOPHEN 325 MG TABLET/CAPLET (TYLENOL) PO PRN (19:45)
[2017-04-22] MEDS ORDERED: ACETAMINOPHEN 500 MG TAB (TYLENOL) PO PRN (19:45)
[2017-04-22] MEDS: MIRTAZAPINE 15 MG (REMERON) TAB PO SCH (20:42)
[2017-04-23] MEDS: MULTIVIT W/MINERALS TAB (THERAGRAN M) PO SCH (06:19)
[2017-04-23] MEDS: PANTOPRAZOLE 40 MG (PROTONIX) TAB PO SCH (06:19)
[2017-04-23] MEDS: IRON POLYSAC 150 MG CAP (NIFEREX) PO SCH ×2 (06:19→17:31)
[2017-04-23] MEDS: HYDROcodone/APAP 10 MG/325 MG (LORTAB) TAB PO PRN ×3 (06:19→14:59)
[2017-04-23 06:35] VITALS: BP 103/62
[2017-04-23] MEDS: NICOTINE 14 MG (NICODERM) PATCH TD SCH (08:09)
[2017-04-23] MEDS: NICOTINE PATCH REMOVAL TP SCH (08:10)
[2017-04-23] MEDS: DIVALPROEX 250 MG DELAYED RELEASE (DEPAKOTE) TAB PO SCH ×2 (08:10→20:07)
[2017-04-23] MEDS: MELOXICAM 7.5 MG (MOBIC) TABLET PO SCH (08:10)
[2017-04-23] MEDS: MAGNESIUM OXIDE (MAG-OX)400 MG TAB PO SCH ×2 (08:10→17:31)
[2017-04-23 09:29] LABS: BASOPHILS % (AUTO) 0 % (0-10); EOSINOPHILS # (AUTO) 0.3 10^3/uL (0.0-0.3); EOSINOPHILS % (AUTO) 2 % (0-10); LYMPHOCYTES # (AUTO) 1.1 X 10^3 (1.0-4.0); LYMPHOCYTES % (AUTO) 9 % (12-44); MEAN CORPUSCULAR HEMOGLOBIN 30 PG (25-34); MEAN CORPUSCULAR HGB CONC 30 G/DL (32-36); MEAN CORPUSCULAR VOLUME 99 FL (80-99); MEAN PLATELET VOLUME 9.1 FL (7.4-10.4); MONOCYTES # (AUTO) 0.9 X 10^3 (0.0-1.0); MONOCYTES % (AUTO) 8 % (0-12); NEUTROPHILS # (AUTO) 9.2 X 10^3 (1.8-7.8); NEUTROPHILS % (AUTO) 80 % (42-75); PLATELET COUNT 465 10^3/uL (130-400); RED BLOOD COUNT 2.59 10^6/uL (4.35-5.85); RED CELL DISTRIBUTION WIDTH 15.1 % (10.0-14.5); WHITE BLOOD COUNT 11.5 10^3/uL (4.3-11.0)
--- NOTE | 2017-04-23 09:47 | Occupational Ther Daily Note ---
OT Current Status-Daily Note Subjective Pt sleeping while sitting in w/c. Pt woke to name. Agreed to therapy. Pt fatigue due to not sleeping during the night. Mental Status/Objective Functional [place] Measure 0=Not Assessed/NA 4=Minimal Assistance 1=Total Assistance 5=Supervision or Setup 2=Maximal Assistance 6=Modified [place] 3=Moderate Assistance 7=Complete [place] ADL-Treatment Declined shower/sponge bath. Pt completed grooming by self prior to [place] coming into room. Functional [place] Measure 0=Not Assessed/NA 4=Minimal Assistance 1=Total Assistance 5=Supervision or Setup 2=Maximal Assistance 6=Modified [place] 3=Moderate Assistance 7=Complete IndependenceIRFPAI Quality Coding Scale 6 Independent with activity with or without an assistive device 5 Patient requires set up or clean up by helper. Patient completes activity by themselves 4 Supervision or touching assist (CGA). [place] provide cues , steadying assist 3 The helper provides less than half the effort to complete the activity 2 The helper provides more than half the effort to complete the activity 1 Dependent. The helper does all the effort to complete an activity 7 Patient refused to complete or attempt activity 9 The patient did not perform the activity before the current illness or injury 88 Not attempted due to Medical conditions or safety concerns Other Treatment Pt maneuvered w/c from room to therapy gym by self. Arm bike completed 15 min at 25 vasquez resistance to increase strength and activity tolerance for daily functional tasks. Pt then completed in-hand manipulation task to work on R hand fine motor skills. Pt is progressing with being able to control 4th and 5th digit during a stabilizing fine motor tasks. Also progressing with finger tip to palmar translation and back. Pt then complete BUE task working on strengthening and fine motor skills for dressing. PT took over care of pt after OT finished treatment. All needs met. OT Short Term Goals Short Term Goals Time Frame: Apr 15, 2017 Grooming(FIM): 5 Lower Body Dressing(FIM): 4 Transfers (B,C,W/C) (FIM): 3 (met) 1=Demonstrate adherence to instructed precautions during ADL tasks. 2=Patient will verbalize/demonstrate understanding of assistive devices/ modifications for ADL. 3=Patient will improve strength/tolerance for activity to enable patient to perform ADL's. OT Mcc Goals Ethnoarchaeologist Goals Time Frame: May 01, 2017 Eating (FIM): 6 Eating (QC): 6 Groomin Oral Hygiene (QC): 6 Bathing(FIM): 6 Shower/Bathe Self (QC): 6 Upper Body Dressing(FIM): 6 Upper Body Dressing (QC): 6 Lower Body Dressing(FIM): 6 Lower Body Dressing (QC): 6 On/Off Footwear (QC): 6 Toileting(FIM): 6 Toileting Hygiene (QC): 6 Toilet/Commode Transfer(FIM): 6 Toilet/Commode Transfer (QC): 6 Shower Transfer(FIM): 6 Comprehension(FIM): 4 (MET) Expression (FIM): 5 (MET) Social Interaction(FIM): 4 (MET) Problem Solving(FIM): 4 (MET) Memory(FIM): 4 (MET) Additional Goals: 1-Demonstrate ADL Tasks, 2-Verbalize Understanding, 3- ImproveStrength/Lidia 1=Demonstrate adherence to instructed precautions during ADL tasks. 2=Patient will verbalize/demonstrate understanding of assistive devices/ modifications for ADL. 3=Patient will improve strength/tolerance for activity to enable patient to perform ADL's. OT Education/Plan Problem List/Assessment Pt would benefit from skilled OT to increase his independence in basic self care to allow him to safely return to his home to live with his and to decrease caregiver burden after multiple surgeries and medical conditions. Discharge Recommendations Plan/Recommendations: Continue POC Treatment Plan/Plan of Care Patient would benefit from OT for education, treatment and training to promote independence in ADL's, mobility, safety and/or upper extremity function for ADL' s. Plan of Care: ADL Retraining, Caregiver Training, Functional Mobility, Group Exercise/Act as Ind (education, exercise, funct activities, activ tolerance, funct mobility, sociallization), UE Funct Exercise/Act, UE Neuromus Re-Ed/Coord Treatment Duration: May 01, 2017 Frequency: At least 5 of 7 days/Wk (IRF) Estimated Hrs Per Day: 1.5 hours per day Agreement: Yes Rehab Potential: Fair Time/GCodes Start Time: 08:00 Stop Time: 09:00 Total Time Billed (hr/min): 60 Billed Treatment Time 1 visit-ADL 4 (60min) LUIS ANTONIO FOWLER Apr 23, 2017 09:47
[2017-04-23 09:48] LABS: ALANINE AMINOTRANSFERASE 12 U/L (0-55); ALBUMIN 3.3 GM/DL (3.2-4.5); ANION GAP 12 MMOL/L (5-14); ASPARTATE AMINO TRANSFERASE 11 U/L (5-34); BILIRUBIN,TOTAL 0.3 MG/DL (0.1-1.0); BLOOD UREA NITROGEN 15 MG/DL (7-18); BUN/CREATININE RATIO 16; CALCIUM 9.5 MG/DL (8.5-10.1); CARBON DIOXIDE 25 MMOL/L (21-32); CHLORIDE 103 MMOL/L (98-107); CREATININE SERUM 0.95 MG/DL (0.60-1.30); GFR ESTIMATED > 60; GLUCOSE 106 MG/DL (70-105); SODIUM 140 MMOL/L (135-145)
[2017-04-23] MEDS: DAKIN'S 1/4 STRENGTH (0.125%) 473 ML BTL TOP SCH ×2 (10:00→20:10)
--- NOTE | 2017-04-23 10:02 | Physical Therapy Daily Note ---
PT Daily Note-Current Subjective Patient in therapy gym pre tx, agrees to PT, has pain of 8/10 on his bottom. Appearance Patient sitting EOB post tx with nurse call, kameron, nurse is coming in to empty his colostomy bag. Mental Status Patient Orientation: Normal For Age Attachments: Colostomy/Ileostomy, Marquez Catheter wound vac Transfers Functional [place] Measure 0=Not Assessed/NA 4=Minimal Assistance 1=Total Assistance 5=Supervision or Setup 2=Maximal Assistance 6=Modified [place] 3=Moderate Assistance 7=Complete IndependenceIRFPAI Quality Coding Scale 6 Independent with activity with or without an assistive device 5 Patient requires set up or clean up by helper. Patient completes activity by themselves 4 Supervision or touching assist (CGA). [place] provide cues , steadying assist 3 The helper provides less than half the effort to complete the activity 2 The helper provides more than half the effort to complete the activity 1 Dependent. The helper does all the effort to complete an activity 7 Patient refused to complete or attempt activity 9 The patient did not perform the activity before the current illness or injury 88 Not attempted due to Medical conditions or safety concerns Sit to/from Stand: 4 Bed to/from Chair: 4 CGA, occasional cues for positioning Gait Training Gait (FIM): 2 Distance: 120'x2 Gait Level of Assist: 4 Gait Persons Needed: 1 Gait Assistive Device: FWW CGA, right side AFO, slow but steady ambulation, no LOB, occasional standing rest break Wheelchair Training Does the Pt Use a Wheelchair?: Yes Wheelchair (FIM): 6 Distance: 150'x2 Type of Wheelchair: Manual Exercises Standing: Heel/toe raises, Mini squats Standing Reps: 20 LAQ alternating for 5 min Neuromuscular standing in parallel bars, narrow SOHA but feet not touching, practicing standing without use of arms for approx 10 min Assessment Current Status: Fair Progress improving ambulation, balance, endurance PT Short Term Goals Short Term Goals Time Frame: Apr 15, 2017 Transfers (B,C,W/C) (FIM): 3 (met) Gait (FIM): 1 (met) Gait Distance Comment: 10' Gait Level of Assist: 4 Gait Assistive Device: FWW Wheelchair Distance: 150'x2 PT Mcc Goals Merchandise Stocker Goals PT Merchandise Stocker Goals Time Frame: Apr 29, 2017 Transfers (B,C,W/C) (FIM): 4 Sit to Lying (QC): 6 Lying-Sitting on Side/Bed(QC): 6 Sit to Stand (QC): 3 Rollin Roll Left to Right (QC): 6 Chair/Pxl-rm-Sxtad Xfer(QC): 3 Car Transfer (QC): 3 Gait (FIM): 1 Distance: 25' Walk 10 feet (QC): 4 Walk 10ft-Uneven Surface(QC): 4 Walk 50ft with 2 Turns (QC): 88 Walk 150 ft (QC): 88 Gait Level of Assist: 4 Gait Assistive Device: FWW Stairs (FIM): 1 # of Steps: 1 1 Step (curb) (QC): 4 PT Plan Problem List Problem List: Activity Tolerance, Functional Strength, Safety, Balance, Gait, Transfer, Bed Mobility, ROM Treatment/Plan Treatment Plan: Continue Plan of Care Treatment Plan: Bed Mobility, Concurrent Therapy, Education, Functional Activity Lidia, Functional Strength, Group Therapy, Gait, Safety, Therapeutic Exercise, Transfers Treatment Duration: Apr 29, 2017 Frequency: At least 5 of 7 days/Wk (IRF) Estimated Hrs Per Day: 1.5 hours per day Patient and/or Family Agrees t: Yes Safety Risks/Education Patient Education: Gait Training, Transfer Techniques, Correct Positioning, W/ C Management, Safety Issues Teaching Recipient: Patient Teaching Methods: Demonstration, Discussion Response to Teaching: Reinforcement Needed Time/GCodes Time In: 900 Time Out: 1000 Total Billed Treatment Time: 60 Total Billed Treatment 1 visit GT 30' EX 30' YARIEL GRUBER PT Apr 23, 2017 10:01
[2017-04-23 10:13] LABS: BILIRUBIN,URINE NEGATIVE (NEGATIVE); KETONES,URINE NEGATIVE (NEGATIVE); LEUKOCYTE ESTERASE ,URINE 3+ (NEGATIVE); NITRITE,URINE POSITIVE (NEGATIVE); PH,URINE 7 (5-9); PROTEIN,URINE NEGATIVE (NEGATIVE); UROBILINOGEN,URINE NORMAL (NORMAL)
[2017-04-23 10:20] LABS: WBC,URINE 25-50 /HPF
--- NOTE | 2017-04-23 10:44 | Progress Note-Hospitalist ---
Subjective HPI/CC On Admission Date Seen by Provider: Apr 23, 2017 Time Seen by Provider: 10:25 Pt is a 61yoCM with a history of AAA rupture s/p repair with subsequent complications of ischemic colitis necessitating colostomy. He current has 2 open wounds on his abdomen for which Dr Rudolph is consulted. He has been admitted to the hospital at [place] for roughly 2 months due to this illness and has now been admitted to rehab for rehab due to debility from this critical illness. He denies any complaints at this time and is ordering breakfast. His is at bedside who is also a ROAD MACHINE RUNNER and expresses concerns about new medicines and previous issues with Lasix and hyponatremia. Otherwise no concerns and ready for rehab. Subjective/Events-last exam Pt reports mood improved. Does not want to start on antidepressant at this time given improvement. Still has nagel but no symptoms of UTI. Developed fever last night and UA consistent with UTI. Objective Exam Vital Signs Vital Sign - Last 12Hours 04/17/17 06:00 Temp 99.2 Pulse 95 Resp 20 B/P (MAP) 102/56 (71) Pulse Ox 95 O2 Delivery Room Air Capillary Refill : General Appearance: No Apparent Distress, WD/WN Respiratory: Lungs Clear, No Accessory Muscle Use, No Respiratory Distress Cardiovascular: Regular Rate, Rhythm, No Murmur Gastrointestinal: Non Tender, Soft, Other (colostomy in place) Neurologic/Psychiatric: Alert, Oriented x3, Normal Mood/Affect Results/Procedures Lab Laboratory Tests 04/23/17 09:18 Assessment/Plan Assessment and Plan Assess & Plan/Chief Complaint uti Diagnosis/Problems Diagnosis/Problems (1) UTI (urinary tract infection) Status: Acute Assessment & Plan: Will start Rocephin Febrile last night and leukocytosis this AM -WBC not over 12, no longer febrile, not tachycardiac, no tachypnea - Does not meet sepsis criteria Will check blood cultures and lactic acid Urine sent for culture Qualifiers: Qualified Codes: N30.00 - Acute cystitis without hematuria (2) Debility Assessment & Plan: management per primary team (3) S/P AAA repair Status: Acute Assessment & Plan: Repaired in [place] Monitor BPs with goals <130/80 (4) Depression Status: Acute Assessment & Plan: Offered antidepressant but declined Will continue to monitor mood Mood improving Qualifiers: Qualified Codes: F32.0 - Major depressive disorder, single episode, mild (5) Colostomy in place Status: Chronic Assessment & Plan: s/p ischemic colitis Wound care as appropriate (6) Tobacco dependence Assessment & Plan: Recommended cessation (7) Pressure ulcer Status: Acute Assessment & Plan: Wound care consulted Discussed care with Dr Rudolph and [place]if[place] will need to stay in place until at least Thursday Qualifiers: Qualified Codes: L89.150 - Pressure ulcer of sacral region, unstageable EDISON CAMARILLO MD Apr 23, 2017 10:44 am
[2017-04-23] MEDS: cefTRIAXone INJECTION 1,000 MG in NS (IVPB) 50 ML IV SCH (11:36)
[2017-04-23] MEDS: NS IV 1000 ML 1,000 ML IV SCH ×2 (12:05→21:47)
--- NOTE | 2017-04-23 12:12 | Wound Care Progress Note ---
Subjective Subjective Subjective/Events-last exam 61 year old male with complicated recent surgical history, including rupture abdominal aortic aneurysm, subsequent bowel necrosis, and peritonitis. His recovery is complicated by superficial dehiscence of midline abdominal wound in two places. The bases of these wounds presented here with 100% stringy, yellow , necrotic fascia. No evidence of fascial dehiscence has occurred yet. The abdominal wounds were viewed at the last VAC VeriFlo Cleanse Chioce device change, and demonstrated that the fascia was intact, and that there were increasing areas of viable tissue at the base.A determination was made that the VAC VeriFlo Cleanse Choice device and the accompanying irrigations, were making a significant difference in the progress of these complex and difficult wounds. thesacral pressure ulcer is stable, but is clearly a stage 4 ulcer at this time. PFSH: No interval change. Review of Systems Date Seen by Provider: Apr 23, 2017 Time Seen by Provider: 11:30 General: No Chills Gastrointestinal: Abdominal Pain Neurological: Weakness Objective Exam Last Set of Vital Signs Vital Signs Date Time Temp Pulse Resp B/P (MAP) Pulse Ox O2 Delivery O2 Flow Rate FiO2 04/23/17 08:00 Room Air 04/23/17 06:35 98.1 87 18 103/62 (76) 96 Capillary Refill : I&O Intake and Output 04/23/17 00:00 Intake Total 2100 ml Output Total 675 ml Balance 1425 ml Intake Oral 2100 ml Output Urine Total 625 ml Stool Total 50 ml # Voids 1 General: Alert, Mild Distress Lungs: Normal Air Movement Skin: Other (Sacral ulcer -- 8.5 x 7,9 x 2.0 cm, base 50 % slough, 50% granulation. Drainage is mod.s.s. Undermining 1 - 2 o'clock, 2.4 cm deep. Necrotic fascia present at base.) Results Lab Laboratory Tests 04/23/17 09:18: White Blood Count 11.5H, Red Blood Count 2.59L, Hemoglobin 7.7L, Hematocrit 26L , Mean Corpuscular Volume 99, Mean Corpuscular Hemoglobin 30, Mean Corpuscular Hemoglobin Concent 30L, Red Cell Distribution Width 15.1H, Platelet Count 465H, Mean Platelet Volume 9.1, Neutrophils (%) (Auto) 80H, Lymphocytes (%) (Auto) 9L , Monocytes (%) (Auto) 8, Eosinophils (%) (Auto) 2, Basophils (%) (Auto) 0, Neutrophils # (Auto) 9.2H, Lymphocytes # (Auto) 1.1, Monocytes # (Auto) 0.9, Eosinophils # (Auto) 0.3, Basophils # (Auto) 0.0, Sodium Level 140, Potassium Level 4.0, Chloride Level 103, Carbon Dioxide Level 25, Anion Gap 12, Blood Urea Nitrogen 15, Creatinine 0.95, Estimat Glomerular Filtration Rate > 60, BUN/ Creatinine Ratio 16, Glucose Level 106H, Calcium Level 9.5, Total Bilirubin 0.3 , Aspartate Amino Transf (AST/SGOT) 11, Alanine Aminotransferase (ALT/SGPT) 12, Alkaline Phosphatase 58, Total Protein 7.0, Albumin 3.3 04/23/17 10:01: Urine Color YELLOW, Urine Clarity CLEAR, Urine pH 7, Urine Specific [place] 1.005L, Urine Protein NEGATIVE, Urine Glucose (UA) NEGATIVE, Urine Ketones NEGATIVE, Urine Nitrite POSITIVEH, Urine Bilirubin NEGATIVE, Urine Urobilinogen NORMAL, Urine Leukocyte Esterase 3+H, Urine RBC (Auto) 1+H, Urine RBC RARE, Urine WBC 25-50H, Urine Crystals NONE, Urine Bacteria MODERATEH, Urine Casts NONE, Urine Mucus NEGATIVE, Urine Culture Indicated YES 04/23/17 10:57: Lactic Acid Level 2.20*H Assessment/Plan Assessment/Plan Assessment/Plan 1. Midline abdominal superficial dehiscence, with exposed necrotic abdominal wall fascia. 2. Pressure ulcer, sacrum, stage 4. Plan: Continue VAC VeriFlo Cleanse Choice therapy to midline abdominal wounds x 2. Dakin's to sacral. ELIZABETH BOWDEN MD Apr 23, 2017 12:12
--- NOTE | 2017-04-23 13:19 | Occupational Ther Daily Note ---
OT Current Status-Daily Note Subjective Pt alert, lying in bed. Pt agreed to therapy. Mental Status/Objective Patient Orientation: Person, Place, Time, Situation Functional [place] Measure 0=Not Assessed/NA 4=Minimal Assistance 1=Total Assistance 5=Supervision or Setup 2=Maximal Assistance 6=Modified [place] 3=Moderate Assistance 7=Complete [place] Attachments: Colostomy/Ileostomy, Drains, Marquez Catheter, IV ADL-Treatment Functional [place] Measure 0=Not Assessed/NA 4=Minimal Assistance 1=Total Assistance 5=Supervision or Setup 2=Maximal Assistance 6=Modified [place] 3=Moderate Assistance 7=Complete IndependenceIRFPAI Quality Coding Scale 6 Independent with activity with or without an assistive device 5 Patient requires set up or clean up by helper. Patient completes activity by themselves 4 Supervision or touching assist (CGA). [place] provide cues , steadying assist 3 The helper provides less than half the effort to complete the activity 2 The helper provides more than half the effort to complete the activity 1 Dependent. The helper does all the effort to complete an activity 7 Patient refused to complete or attempt activity 9 The patient did not perform the activity before the current illness or injury 88 Not attempted due to Medical conditions or safety concerns Other Treatment Completed B UE tasks to increase strength and activity tolerance for daily functional tasks. Pt able to manipulate thin items in each hand and hold without dropping in R hand. Pt able to reach and place in designated area. After therapy, pt in care of PT. All needs met in room. OT Short Term Goals Short Term Goals Time Frame: Apr 15, 2017 Grooming(FIM): 5 Lower Body Dressing(FIM): 4 Transfers (B,C,W/C) (FIM): 3 (met) 1=Demonstrate adherence to instructed precautions during ADL tasks. 2=Patient will verbalize/demonstrate understanding of assistive devices/ modifications for ADL. 3=Patient will improve strength/tolerance for activity to enable patient to perform ADL's. OT [employer] Supervisor Goals Skilled Nursing Goals Time Frame: May 01, 2017 Eating (FIM): 6 Eating (QC): 6 Groomin Oral Hygiene (QC): 6 Bathing(FIM): 6 Shower/Bathe Self (QC): 6 Upper Body Dressing(FIM): 6 Upper Body Dressing (QC): 6 Lower Body Dressing(FIM): 6 Lower Body Dressing (QC): 6 On/Off Footwear (QC): 6 Toileting(FIM): 6 Toileting Hygiene (QC): 6 Toilet/Commode Transfer(FIM): 6 Toilet/Commode Transfer (QC): 6 Shower Transfer(FIM): 6 Comprehension(FIM): 4 (MET) Expression (FIM): 5 (MET) Social Interaction(FIM): 4 (MET) Problem Solving(FIM): 4 (MET) Memory(FIM): 4 (MET) Additional Goals: 1-Demonstrate ADL Tasks, 2-Verbalize Understanding, 3- ImproveStrength/Lidia 1=Demonstrate adherence to instructed precautions during ADL tasks. 2=Patient will verbalize/demonstrate understanding of assistive devices/ modifications for ADL. 3=Patient will improve strength/tolerance for activity to enable patient to perform ADL's. OT Education/Plan Problem List/Assessment Pt would benefit from skilled OT to increase his independence in basic self care to allow him to safely return to his home to live with his and to decrease caregiver burden after multiple surgeries and medical conditions. Discharge Recommendations Plan/Recommendations: Continue POC Treatment Plan/Plan of Care Patient would benefit from OT for education, treatment and training to promote independence in ADL's, mobility, safety and/or upper extremity function for ADL' s. Plan of Care: ADL Retraining, Caregiver Training, Functional Mobility, Group Exercise/Act as Ind (education, exercise, funct activities, activ tolerance, funct mobility, sociallization), UE Funct Exercise/Act, UE Neuromus Re-Ed/Coord Treatment Duration: May 01, 2017 Frequency: At least 5 of 7 days/Wk (IRF) Estimated Hrs Per Day: 1.5 hours per day Agreement: Yes Rehab Potential: Fair Time/GCodes Start Time: 13:00 Stop Time: 13:30 Total Time Billed (hr/min): 30 Billed Treatment Time 1 visit-EX 2 (30 min) LUIS ANTONIO FOWLER Apr 23, 2017 13:19
--- NOTE | 2017-04-23 14:52 | Physical Therapy Daily Note ---
PT Daily Note-Current Subjective Agreeable to PT. Expresses distaste for having the colostomy, wound vac, nagel cathether and IV. Agrees to exercise and wheelchair mobility. Doesn't want to try to walk with the IV in place. Transfers Functional [place] Measure 0=Not Assessed/NA 4=Minimal Assistance 1=Total Assistance 5=Supervision or Setup 2=Maximal Assistance 6=Modified [place] 3=Moderate Assistance 7=Complete IndependenceIRFPAI Quality Coding Scale 6 Independent with activity with or without an assistive device 5 Patient requires set up or clean up by helper. Patient completes activity by themselves 4 Supervision or touching assist (CGA). [place] provide cues , steadying assist 3 The helper provides less than half the effort to complete the activity 2 The helper provides more than half the effort to complete the activity 1 Dependent. The helper does all the effort to complete an activity 7 Patient refused to complete or attempt activity 9 The patient did not perform the activity before the current illness or injury 88 Not attempted due to Medical conditions or safety concerns Treatments Mod indep with bed mobility, but had difficulty with moving right leg. Pt able to perform SPT bed to wheelchair with CGA and assist to manage attachments. Wheelchair mobility x 200 ft mod indep to promote functional indep at a wheelchair level and as well as safety in the chair. Seated B LE ther ex x 15 for AP, LAQ, hip flexion and hip abd/add all to increase LE strength for mobility progression. In chair post treatment waiting for X ray to come get him. Assessment Current Status: Good Progress Tolerated well. Seems dissatisfied with current state of health, but expresses that he understands that it is how it is. PT Short Term Goals Short Term Goals Time Frame: Apr 15, 2017 Transfers (B,C,W/C) (FIM): 3 (met) Gait (FIM): 1 (met) Gait Distance Comment: 10' Gait Level of Assist: 4 Gait Assistive Device: FWW Wheelchair Distance: 150'x2 PT Residential Goals Residential Goals PT Residential Goals Time Frame: Apr 29, 2017 Transfers (B,C,W/C) (FIM): 4 Sit to Lying (QC): 6 Lying-Sitting on Side/Bed(QC): 6 Sit to Stand (QC): 3 Rollin Roll Left to Right (QC): 6 Chair/Dwf-ls-Gfugc Xfer(QC): 3 Car Transfer (QC): 3 Gait (FIM): 1 Distance: 25' Walk 10 feet (QC): 4 Walk 10ft-Uneven Surface(QC): 4 Walk 50ft with 2 Turns (QC): 88 Walk 150 ft (QC): 88 Gait Level of Assist: 4 Gait Assistive Device: FWW Stairs (FIM): 1 # of Steps: 1 1 Step (curb) (QC): 4 PT Plan Problem List Problem List: Activity Tolerance, Functional Strength, Safety Treatment/Plan Treatment Plan: Continue Plan of Care Treatment Plan: Bed Mobility, Concurrent Therapy, Education, Functional Activity Lidia, Functional Strength, Group Therapy, Gait, Safety, Therapeutic Exercise, Transfers Treatment Duration: Apr 29, 2017 Frequency: At least 5 of 7 days/Wk (IRF) Estimated Hrs Per Day: 1.5 hours per day Patient and/or Family Agrees t: Yes Safety Risks/Education Patient Education: Safety Issues Teaching Recipient: Patient Teaching Methods: Discussion Response to Teaching: Reinforcement Needed Time/GCodes Time In: 1330 Time Out: 1401 Total Billed Treatment Time: 31 Total Billed Treatment visit WC 20 EX 11 LUIS ANTONIO RODRIGUEZ PT Apr 23, 2017 14:52
--- NOTE | 2017-04-23 15:23 | Diagnostic Imaging Report ---
INDICATION: Fever. TECHNIQUE: PA and lateral views of the chest are obtained. FINDINGS: Heart size and pulmonary vascularity are within normal limits, and the lungs are clear, bilaterally. IMPRESSION: Unremarkable chest. Dictated by: Dictated on workstation # [id number]
[2017-04-23 18:31] VITALS: BP 119/74
[2017-04-23] MEDS: MIRTAZAPINE 15 MG (REMERON) TAB PO SCH (20:07)
[2017-04-24 06:00] VITALS: BP 118/70
[2017-04-24] MEDS: PANTOPRAZOLE 40 MG (PROTONIX) TAB PO SCH (06:35)
[2017-04-24] MEDS: MULTIVIT W/MINERALS TAB (THERAGRAN M) PO SCH (06:35)
[2017-04-24] MEDS: IRON POLYSAC 150 MG CAP (NIFEREX) PO SCH ×2 (06:35→16:58)
[2017-04-24] MEDS: NS IV 1000 ML 1,000 ML IV SCH (06:38)
[2017-04-24] MEDS: DIVALPROEX 250 MG DELAYED RELEASE (DEPAKOTE) TAB PO SCH ×2 (08:53→20:33)
[2017-04-24] MEDS: NICOTINE 14 MG (NICODERM) PATCH TD SCH (08:53)
[2017-04-24] MEDS: NICOTINE PATCH REMOVAL TP SCH (08:53)
[2017-04-24] MEDS: MAGNESIUM OXIDE (MAG-OX)400 MG TAB PO SCH ×2 (08:53→16:58)
[2017-04-24] MEDS: ZINC OXIDE 16% OINT (BUTT PASTE) 113 GM TUBE TOP PRN (08:54)
[2017-04-24] MEDS: DAKIN'S 1/4 STRENGTH (0.125%) 473 ML BTL TOP SCH ×2 (08:54→20:34)
[2017-04-24] MEDS: cefTRIAXone INJECTION 1,000 MG in NS (IVPB) 50 ML IV SCH (08:54)
[2017-04-24] MEDS: MELOXICAM 7.5 MG (MOBIC) TABLET PO SCH (08:58)
[2017-04-24] MEDS: HYDROcodone/APAP 10 MG/325 MG (LORTAB) TAB PO PRN ×3 (08:59→20:33)
--- NOTE | 2017-04-24 09:19 | Occupational Ther Daily Note ---
OT Current Status-Daily Note Subjective Pt sleeping in bed. Woke to name. Pt stated that pain is 9/10, nrsg in room and has pain meds. Pt very emotional this morning and commented why is this happening to him and he would just check out if he could. Again offered to have someone come talk to him, pt stated that maybe he should. Mental Status/Objective Patient Orientation: Person, Place, Time, Situation Functional [place] Measure 0=Not Assessed/NA 4=Minimal Assistance 1=Total Assistance 5=Supervision or Setup 2=Maximal Assistance 6=Modified [place] 3=Moderate Assistance 7=Complete [place] Attachments: Colostomy/Ileostomy, Drains, Marquez Catheter, IV ADL-Treatment Functional [place] Measure 0=Not Assessed/NA 4=Minimal Assistance 1=Total Assistance 5=Supervision or Setup 2=Maximal Assistance 6=Modified [place] 3=Moderate Assistance 7=Complete IndependenceIRFPAI Quality Coding Scale 6 Independent with activity with or without an assistive device 5 Patient requires set up or clean up by helper. Patient completes activity by themselves 4 Supervision or touching assist (CGA). [place] provide cues , steadying assist 3 The helper provides less than half the effort to complete the activity 2 The helper provides more than half the effort to complete the activity 1 Dependent. The helper does all the effort to complete an activity 7 Patient refused to complete or attempt activity 9 The patient did not perform the activity before the current illness or injury 88 Not attempted due to Medical conditions or safety concerns Grooming (FIM): 6 (Sitting in w/c, pt is able to complete grooming at sink by self.) Oral Hygiene (QC): 6 Bathing (FIM): 5 (Setup only. Pt used shower bench, grabbar, hand held shower , long handle sponge to bathe self.) Bathing Location: L Arm, R Arm, L Upper Leg, R Upper Leg, L Lower Leg ( including foot), R Lower Leg (including foot), Chest, Abdomen, Buttocks, Perineal Area Shower/Bathe Self (QC): 5 Shower Transfer(FIM): 4 (Increased assist due to multiple tubing from IV, catheter, wound vac. Using grabbars, w/c and shower bench pt is able to grasp onto grabbars and stand pivot transfer for w/c to shower bench and back.) Pt took increased time during therapy due to an increased emotional state. Pt crying and upset/frustrated with how much pain he is in and requiring a new IV so he is not able to get around in w/c independently. Then after shower, pt required dressing change on coccyx area. So pt unable to don shorts at the end of therapy. Nrsg and PT in room after OT was completed. All needs met in room. OT Short Term Goals Short Term Goals Time Frame: Apr 15, 2017 Grooming(FIM): 5 Lower Body Dressing(FIM): 4 Transfers (B,C,W/C) (FIM): 3 (met) 1=Demonstrate adherence to instructed precautions during ADL tasks. 2=Patient will verbalize/demonstrate understanding of assistive devices/ modifications for ADL. 3=Patient will improve strength/tolerance for activity to enable patient to perform ADL's. OT Jail Goals Jail Goals Time Frame: May 01, 2017 Eating (FIM): 6 Eating (QC): 6 Groomin Oral Hygiene (QC): 6 Bathing(FIM): 6 Shower/Bathe Self (QC): 6 Upper Body Dressing(FIM): 6 Upper Body Dressing (QC): 6 Lower Body Dressing(FIM): 6 Lower Body Dressing (QC): 6 On/Off Footwear (QC): 6 Toileting(FIM): 6 Toileting Hygiene (QC): 6 Toilet/Commode Transfer(FIM): 6 Toilet/Commode Transfer (QC): 6 Shower Transfer(FIM): 6 Comprehension(FIM): 4 (MET) Expression (FIM): 5 (MET) Social Interaction(FIM): 4 (MET) Problem Solving(FIM): 4 (MET) Memory(FIM): 4 (MET) Additional Goals: 1-Demonstrate ADL Tasks, 2-Verbalize Understanding, 3- ImproveStrength/Lidia 1=Demonstrate adherence to instructed precautions during ADL tasks. 2=Patient will verbalize/demonstrate understanding of assistive devices/ modifications for ADL. 3=Patient will improve strength/tolerance for activity to enable patient to perform ADL's. OT Education/Plan Problem List/Assessment Pt would benefit from skilled OT to increase his independence in basic self care to allow him to safely return to his home to live with his and to decrease caregiver burden after multiple surgeries and medical conditions. Discharge Recommendations Plan/Recommendations: Continue POC Treatment Plan/Plan of Care Patient would benefit from OT for education, treatment and training to promote independence in ADL's, mobility, safety and/or upper extremity function for ADL' s. Plan of Care: ADL Retraining, Caregiver Training, Functional Mobility, Group Exercise/Act as Ind (education, exercise, funct activities, activ tolerance, funct mobility, sociallization), UE Funct Exercise/Act, UE Neuromus Re-Ed/Coord Treatment Duration: May 01, 2017 Frequency: At least 5 of 7 days/Wk (IRF) Estimated Hrs Per Day: 1.5 hours per day Agreement: Yes Rehab Potential: Fair Time/GCodes Start Time: 08:00 Stop Time: 09:00 Total Time Billed (hr/min): 60 Billed Treatment Time 1 visit-ADL 4 (60 min) LUIS ANTONIO FOWLER Apr 24, 2017 09:19
--- NOTE | 2017-04-24 10:03 | Physical Therapy Daily Note ---
PT Daily Note-Current Subjective Patient in bed pre tx, nursing in the room finishing up his wound dressing. Patient has 9/10 pain in his bottom. Patient is very tired and depressed and requests that he not ambulate today. Appearance Patient in bed post tx with nurse call, phone, tray, all needs met. Mental Status Attachments: Colostomy/Ileostomy, Marquez Catheter wound vac Transfers Functional [place] Measure 0=Not Assessed/NA 4=Minimal Assistance 1=Total Assistance 5=Supervision or Setup 2=Maximal Assistance 6=Modified [place] 3=Moderate Assistance 7=Complete IndependenceIRFPAI Quality Coding Scale 6 Independent with activity with or without an assistive device 5 Patient requires set up or clean up by helper. Patient completes activity by themselves 4 Supervision or touching assist (CGA). [place] provide cues , steadying assist 3 The helper provides less than half the effort to complete the activity 2 The helper provides more than half the effort to complete the activity 1 Dependent. The helper does all the effort to complete an activity 7 Patient refused to complete or attempt activity 9 The patient did not perform the activity before the current illness or injury 88 Not attempted due to Medical conditions or safety concerns Transfers (B, C, W/C) (FIM): 4 Scootin Rollin Supine to/from Sit: 5 Sit to/from Stand: 4 Bed to/from Chair: 4 Wheelchair Training Does the Pt Use a Wheelchair?: Yes Wheelchair (FIM): 5 Distance: 150'x2 Type of Wheelchair: Manual Exercises Seated Therapy Exercises: Hip flexion, Hip abd/add Seated Reps: 20 Standing: Heel/toe raises, Mini squats Standing Reps: 20 LAQ alternating for 5 min, PROM/stretching dorsiflexion right ankle Treatments bed mobility and transfers, functional strengthening Assessment Current Status: Poor Progress No change in mobility. Patient required extra rest time and was poorly motivated due to fatigue, pain, and depression. He was able to get much less done in an hour. PT Short Term Goals Short Term Goals Time Frame: Apr 15, 2017 Transfers (B,C,W/C) (FIM): 3 (met) Gait (FIM): 1 (met) Gait Distance Comment: 10' Gait Level of Assist: 4 Gait Assistive Device: FWW Wheelchair Distance: 150'x2 PT Halfway Goals Costumer Goals PT Halfway Goals Time Frame: Apr 29, 2017 Transfers (B,C,W/C) (FIM): 4 Sit to Lying (QC): 6 Lying-Sitting on Side/Bed(QC): 6 Sit to Stand (QC): 3 Rollin Roll Left to Right (QC): 6 Chair/Ehj-og-Cvfra Xfer(QC): 3 Car Transfer (QC): 3 Gait (FIM): 1 Distance: 25' Walk 10 feet (QC): 4 Walk 10ft-Uneven Surface(QC): 4 Walk 50ft with 2 Turns (QC): 88 Walk 150 ft (QC): 88 Gait Level of Assist: 4 Gait Assistive Device: FWW Stairs (FIM): 1 # of Steps: 1 1 Step (curb) (QC): 4 PT Plan Problem List Problem List: Activity Tolerance, Functional Strength, Safety, Balance, Gait, Transfer, Bed Mobility, ROM Treatment/Plan Treatment Plan: Continue Plan of Care Treatment Plan: Bed Mobility, Concurrent Therapy, Education, Functional Activity Lidia, Functional Strength, Group Therapy, Gait, Safety, Therapeutic Exercise, Transfers Treatment Duration: Apr 29, 2017 Frequency: At least 5 of 7 days/Wk (IRF) Estimated Hrs Per Day: 1.5 hours per day Patient and/or Family Agrees t: Yes Safety Risks/Education Patient Education: Transfer Techniques, Correct Positioning, W/C Management, Safety Issues Teaching Recipient: Patient Teaching Methods: Demonstration, Discussion Response to Teaching: Reinforcement Needed Time/GCodes Time In: 900 Time Out: 1000 Total Billed Treatment Time: 60 Total Billed Treatment 1 visit [facility] 15' FA 15' EX 30' YARIEL GRUBER PT Apr 24, 2017 10:03
[2017-04-24] MEDS ORDERED: fentaNYL INJECTION 100 MCG/2 ML AMP IVP NR (12:15)
--- NOTE | 2017-04-24 13:34 | Occupational Ther Daily Note ---
OT Current Status-Daily Note Subjective Pt alert, lying in bed. Pt stated that he was waiting for the wound doctor and nrsg. Pt agreed to therapy. Mental Status/Objective Patient Orientation: Person, Place, Time, Situation Functional [place] Measure 0=Not Assessed/NA 4=Minimal Assistance 1=Total Assistance 5=Supervision or Setup 2=Maximal Assistance 6=Modified [place] 3=Moderate Assistance 7=Complete [place] Attachments: Colostomy/Ileostomy, Drains, Marquez Catheter, IV ADL-Treatment Functional [place] Measure 0=Not Assessed/NA 4=Minimal Assistance 1=Total Assistance 5=Supervision or Setup 2=Maximal Assistance 6=Modified [place] 3=Moderate Assistance 7=Complete IndependenceIRFPAI Quality Coding Scale 6 Independent with activity with or without an assistive device 5 Patient requires set up or clean up by helper. Patient completes activity by themselves 4 Supervision or touching assist (CGA). [place] provide cues , steadying assist 3 The helper provides less than half the effort to complete the activity 2 The helper provides more than half the effort to complete the activity 1 Dependent. The helper does all the effort to complete an activity 7 Patient refused to complete or attempt activity 9 The patient did not perform the activity before the current illness or injury 88 Not attempted due to Medical conditions or safety concerns Other Treatment Completed B UE tasks to increase strength and activity tolerance for daily functional tasks. Pt able to manipulate thin items in each hand and hold without dropping in R hand. Pt able to reach and place in designated area. Wound nurse came in to change dressing and wound vac. Will come back to finish therapy session. Discussed with OTR/L pt's care plan and progress made. OT Short Term Goals Short Term Goals Time Frame: Apr 15, 2017 Grooming(FIM): 5 Lower Body Dressing(FIM): 4 Transfers (B,C,W/C) (FIM): 3 (met) 1=Demonstrate adherence to instructed precautions during ADL tasks. 2=Patient will verbalize/demonstrate understanding of assistive devices/ modifications for ADL. 3=Patient will improve strength/tolerance for activity to enable patient to perform ADL's. OT Transport Tank Technician Goals Transport Tank Technician Goals Time Frame: May 01, 2017 Eating (FIM): 6 Eating (QC): 6 Groomin Oral Hygiene (QC): 6 Bathing(FIM): 6 Shower/Bathe Self (QC): 6 Upper Body Dressing(FIM): 6 Upper Body Dressing (QC): 6 Lower Body Dressing(FIM): 6 Lower Body Dressing (QC): 6 On/Off Footwear (QC): 6 Toileting(FIM): 6 Toileting Hygiene (QC): 6 Toilet/Commode Transfer(FIM): 6 Toilet/Commode Transfer (QC): 6 Shower Transfer(FIM): 6 Comprehension(FIM): 4 (MET) Expression (FIM): 5 (MET) Social Interaction(FIM): 4 (MET) Problem Solving(FIM): 4 (MET) Memory(FIM): 4 (MET) Additional Goals: 1-Demonstrate ADL Tasks, 2-Verbalize Understanding, 3- ImproveStrength/Lidia 1=Demonstrate adherence to instructed precautions during ADL tasks. 2=Patient will verbalize/demonstrate understanding of assistive devices/ modifications for ADL. 3=Patient will improve strength/tolerance for activity to enable patient to perform ADL's. OT Education/Plan Problem List/Assessment Pt would benefit from skilled OT to increase his independence in basic self care to allow him to safely return to his home to live with his and to decrease caregiver burden after multiple surgeries and medical conditions. Discharge Recommendations Plan/Recommendations: Continue POC Treatment Plan/Plan of Care Patient would benefit from OT for education, treatment and training to promote independence in ADL's, mobility, safety and/or upper extremity function for ADL' s. Plan of Care: ADL Retraining, Caregiver Training, Functional Mobility, Group Exercise/Act as Ind (education, exercise, funct activities, activ tolerance, funct mobility, sociallization), UE Funct Exercise/Act, UE Neuromus Re-Ed/Coord Treatment Duration: May 01, 2017 Frequency: At least 5 of 7 days/Wk (IRF) Estimated Hrs Per Day: 1.5 hours per day Agreement: Yes Rehab Potential: Fair Time/GCodes Start Time: 13:00 Stop Time: 13:15 Total Time Billed (hr/min): 15 Billed Treatment Time 1 visit-EX 1 (15 min) LUIS ANTONIO FOWLER Apr 24, 2017 13:33
--- NOTE | 2017-04-24 13:44 | Wound Care Progress Note ---
Subjective Subjective Subjective/Events-last exam 61 year old male with wound dehiscence and necrotic base. Wounds are responding to VAC VeriFlo Cleanse Choice device. Necrotic base material removed as tolerated. PFSH: No interval change. Review of Systems Date Seen by Provider: Apr 24, 2017 Time Seen by Provider: 13:30 General: Fatigue Gastrointestinal: Abdominal Pain Objective Exam Last Set of Vital Signs Vital Signs Date Time Temp Pulse Resp B/P (MAP) Pulse Ox O2 Delivery O2 Flow Rate FiO2 04/24/17 10:17 99.0 04/24/17 09:57 Room Air 04/24/17 06:00 101 18 118/70 (86) 96 Capillary Refill : I&O Intake and Output 04/24/17 00:00 Intake Total 1190 ml Output Total 1250 ml Balance -60 ml Intake Oral 1140 ml IV Total 50 ml Output Urine Total 850 ml Stool Total 400 ml General: Alert, Mild Distress Lungs: Normal Air Movement Skin: Other (Upper midline ulcer -- 5.3 x 1.6 x 0.8 cm, base 95% slough, 5% granulation. Lower midline ulcer --- 4.7 x 1.8 x 1.3 cm, base 25% slough, 75 % granulation.) Results Lab Microbiology 04/23/17 Urine Culture - Preliminary, Resulted Gram Negative Facundo Assessment/Plan Assessment/Plan Assessment/Plan 1. Open wounds, midline abdomen, full thickness with exposed support structures. 2. Pressure ulcer, sacrum, Stage 4. Plan: continue VAC VeriFlo Cleanse Choice device to abdominal wounds, Dakin's to sacrum. ELIZABETH BOWDEN MD Apr 24, 2017 13:44
[2017-04-24] MEDS: fentaNYL PATCH 100 MCG (DURAGESIC) TD SCH (14:12)
[2017-04-24] MEDS: FENTANYL PATCH REMOVAL TP SCH (14:17)
--- NOTE | 2017-04-24 14:26 | Occupational Ther Daily Note ---
OT Current Status-Daily Note Subjective Attempted to go back in and see pt. Pt very groggy, but did wake and stated he was still in pain from wound dressing change. Mental Status/Objective Patient Orientation: Person, Place, Time Functional [place] Measure 0=Not Assessed/NA 4=Minimal Assistance 1=Total Assistance 5=Supervision or Setup 2=Maximal Assistance 6=Modified [place] 3=Moderate Assistance 7=Complete [place] Attachments: Colostomy/Ileostomy, Drains, Marquez Catheter, IV ADL-Treatment Functional [place] Measure 0=Not Assessed/NA 4=Minimal Assistance 1=Total Assistance 5=Supervision or Setup 2=Maximal Assistance 6=Modified [place] 3=Moderate Assistance 7=Complete IndependenceIRFPAI Quality Coding Scale 6 Independent with activity with or without an assistive device 5 Patient requires set up or clean up by helper. Patient completes activity by themselves 4 Supervision or touching assist (CGA). [place] provide cues , steadying assist 3 The helper provides less than half the effort to complete the activity 2 The helper provides more than half the effort to complete the activity 1 Dependent. The helper does all the effort to complete an activity 7 Patient refused to complete or attempt activity 9 The patient did not perform the activity before the current illness or injury 88 Not attempted due to Medical conditions or safety concerns Other Treatment Nrsg came in to apply pain patch. Pt was able to rouse enough to turn side to side to check for old pain patches. Pt then was able to hold self on L side while nrsg applied new pain patch. Pt then positioned himself in bed for comfort. Pt fell asleep immediately. Call light/phone in reach. All needs met in room. OT Short Term Goals Short Term Goals Time Frame: Apr 15, 2017 Grooming(FIM): 5 Lower Body Dressing(FIM): 4 Transfers (B,C,W/C) (FIM): 3 (met) 1=Demonstrate adherence to instructed precautions during ADL tasks. 2=Patient will verbalize/demonstrate understanding of assistive devices/ modifications for ADL. 3=Patient will improve strength/tolerance for activity to enable patient to perform ADL's. OT Custodial Goals Territory Account Executive Goals Time Frame: May 01, 2017 Eating (FIM): 6 Eating (QC): 6 Groomin Oral Hygiene (QC): 6 Bathing(FIM): 6 Shower/Bathe Self (QC): 6 Upper Body Dressing(FIM): 6 Upper Body Dressing (QC): 6 Lower Body Dressing(FIM): 6 Lower Body Dressing (QC): 6 On/Off Footwear (QC): 6 Toileting(FIM): 6 Toileting Hygiene (QC): 6 Toilet/Commode Transfer(FIM): 6 Toilet/Commode Transfer (QC): 6 Shower Transfer(FIM): 6 Comprehension(FIM): 4 (MET) Expression (FIM): 5 (MET) Social Interaction(FIM): 4 (MET) Problem Solving(FIM): 4 (MET) Memory(FIM): 4 (MET) Additional Goals: 1-Demonstrate ADL Tasks, 2-Verbalize Understanding, 3- ImproveStrength/Lidia 1=Demonstrate adherence to instructed precautions during ADL tasks. 2=Patient will verbalize/demonstrate understanding of assistive devices/ modifications for ADL. 3=Patient will improve strength/tolerance for activity to enable patient to perform ADL's. OT Education/Plan Problem List/Assessment Pt would benefit from skilled OT to increase his independence in basic self care to allow him to safely return to his home to live with his and to decrease caregiver burden after multiple surgeries and medical conditions. Discharge Recommendations Plan/Recommendations: Continue POC Treatment Plan/Plan of Care Patient would benefit from OT for education, treatment and training to promote independence in ADL's, mobility, safety and/or upper extremity function for ADL' s. Plan of Care: ADL Retraining, Caregiver Training, Functional Mobility, Group Exercise/Act as Ind (education, exercise, funct activities, activ tolerance, funct mobility, sociallization), UE Funct Exercise/Act, UE Neuromus Re-Ed/Coord Treatment Duration: May 01, 2017 Frequency: At least 5 of 7 days/Wk (IRF) Estimated Hrs Per Day: 1.5 hours per day Agreement: Yes Rehab Potential: Fair Time/GCodes Start Time: 14:04 Stop Time: 14:19 Total Time Billed (hr/min): 15 Billed Treatment Time 1 visit-FA 1 (15 min) LUIS ANTONIO FOWLER Apr 24, 2017 14:26
--- NOTE | 2017-04-24 15:06 | Physical Therapy Daily Note ---
PT Daily Note-Current Subjective Patient sleeping in bed pre tx, he is very drowsy, apparently he got some medication and he is drowsy from that. Patient is hard to rouse and does not stay awake. Will perform bilateral LE ROM/stretching. Appearance Patient in bed post tx with nurse call, phone, tray, all needs met. Mental Status Patient Orientation: Unable to Assess Attachments: Colostomy/Ileostomy, Marquez Catheter wound vac Transfers Functional [place] Measure 0=Not Assessed/NA 4=Minimal Assistance 1=Total Assistance 5=Supervision or Setup 2=Maximal Assistance 6=Modified [place] 3=Moderate Assistance 7=Complete IndependenceIRFPAI Quality Coding Scale 6 Independent with activity with or without an assistive device 5 Patient requires set up or clean up by helper. Patient completes activity by themselves 4 Supervision or touching assist (CGA). [place] provide cues , steadying assist 3 The helper provides less than half the effort to complete the activity 2 The helper provides more than half the effort to complete the activity 1 Dependent. The helper does all the effort to complete an activity 7 Patient refused to complete or attempt activity 9 The patient did not perform the activity before the current illness or injury 88 Not attempted due to Medical conditions or safety concerns Treatments bilateral lower extremity ROM/stretching in supine position. All planes. Patient is stiff with dorsiflexion bilaterally but can achieve neutral. Assessment Current Status: Poor Progress no change in mobility, patient extremely lethargic PT Short Term Goals Short Term Goals Time Frame: Apr 15, 2017 Transfers (B,C,W/C) (FIM): 3 (met) Gait (FIM): 1 (met) Gait Distance Comment: 10' Gait Level of Assist: 4 Gait Assistive Device: FWW Wheelchair Distance: 150'x2 PT Senior Care Goals Combo Welder Goals PT Combo Welder Goals Time Frame: Apr 29, 2017 Transfers (B,C,W/C) (FIM): 4 Sit to Lying (QC): 6 Lying-Sitting on Side/Bed(QC): 6 Sit to Stand (QC): 3 Rollin Roll Left to Right (QC): 6 Chair/Hfc-gf-Dtxei Xfer(QC): 3 Car Transfer (QC): 3 Gait (FIM): 1 Distance: 25' Walk 10 feet (QC): 4 Walk 10ft-Uneven Surface(QC): 4 Walk 50ft with 2 Turns (QC): 88 Walk 150 ft (QC): 88 Gait Level of Assist: 4 Gait Assistive Device: FWW Stairs (FIM): 1 # of Steps: 1 1 Step (curb) (QC): 4 PT Plan Problem List Problem List: Activity Tolerance, Functional Strength, Safety, Balance, Gait, Transfer, Bed Mobility, ROM Treatment/Plan Treatment Plan: Continue Plan of Care Treatment Plan: Bed Mobility, Concurrent Therapy, Education, Functional Activity Lidia, Functional Strength, Group Therapy, Gait, Safety, Therapeutic Exercise, Transfers Treatment Duration: Apr 29, 2017 Frequency: At least 5 of 7 days/Wk (IRF) Estimated Hrs Per Day: 1.5 hours per day Patient and/or Family Agrees t: Yes Safety Risks/Education Patient Education: Correct Positioning, Safety Issues Teaching Recipient: Patient Teaching Methods: Demonstration, Discussion Response to Teaching: Reinforcement Needed Time/GCodes Time In: 1435 Time Out: 1505 Total Billed Treatment Time: 30 Total Billed Treatment 1 visit EX 30' YARIEL GRUBER PT Apr 24, 2017 15:05
[2017-04-24] MEDS ORDERED: INFLUENZA TRIvalent 2017-2018 0.5 ML/45 MCG SYR IM ONE (17:15)
[2017-04-24 18:00] VITALS: BP 110/61
[2017-04-24 19:47] VITALS: BP 110/61
[2017-04-24] MEDS: MIRTAZAPINE 15 MG (REMERON) TAB PO SCH (20:33)
[2017-04-25 05:50] VITALS: BP 106/62
[2017-04-25] MEDS: HYDROcodone/APAP 10 MG/325 MG (LORTAB) TAB PO PRN ×5 (05:52→22:21)
[2017-04-25] MEDS: IRON POLYSAC 150 MG CAP (NIFEREX) PO SCH ×2 (05:52→18:21)
[2017-04-25] MEDS: MULTIVIT W/MINERALS TAB (THERAGRAN M) PO SCH (05:52)
[2017-04-25] MEDS: PANTOPRAZOLE 40 MG (PROTONIX) TAB PO SCH (05:52)
[2017-04-25] MEDS: NICOTINE PATCH REMOVAL TP SCH (08:18)
[2017-04-25] MEDS: DIVALPROEX 250 MG DELAYED RELEASE (DEPAKOTE) TAB PO SCH ×2 (08:18→20:46)
[2017-04-25] MEDS: NICOTINE 14 MG (NICODERM) PATCH TD SCH (08:18)
[2017-04-25] MEDS: cefTRIAXone INJECTION 1,000 MG in NS (IVPB) 50 ML IV SCH (08:18)
[2017-04-25] MEDS: MELOXICAM 7.5 MG (MOBIC) TABLET PO SCH (08:18)
[2017-04-25] MEDS: MAGNESIUM OXIDE (MAG-OX)400 MG TAB PO SCH ×2 (08:18→18:21)
[2017-04-25] MEDS: ZINC OXIDE 16% OINT (BUTT PASTE) 113 GM TUBE TOP PRN (08:19)
[2017-04-25] MEDS: DAKIN'S 1/4 STRENGTH (0.125%) 473 ML BTL TOP SCH ×2 (08:19→20:48)
--- NOTE | 2017-04-25 11:57 | Physical Therapy Daily Note ---
PT Daily Note-Current Subjective Pts present and wants to assist with gait and Rx. Pt. states he has had a very busy morning with wound vacc and dressing change and is fatigued but would like to walk Pain Numeric Pain Scale: 0-No Pain Mental Status Patient Orientation: Normal For Age Attachments: Marquez Catheter, Other-See Comments (wound vacc) Transfers Functional [place] Measure 0=Not Assessed/NA 4=Minimal Assistance 1=Total Assistance 5=Supervision or Setup 2=Maximal Assistance 6=Modified [place] 3=Moderate Assistance 7=Complete IndependenceIRFPAI Quality Coding Scale 6 Independent with activity with or without an assistive device 5 Patient requires set up or clean up by helper. Patient completes activity by themselves 4 Supervision or touching assist (CGA). [place] provide cues , steadying assist 3 The helper provides less than half the effort to complete the activity 2 The helper provides more than half the effort to complete the activity 1 Dependent. The helper does all the effort to complete an activity 7 Patient refused to complete or attempt activity 9 The patient did not perform the activity before the current illness or injury 88 Not attempted due to Medical conditions or safety concerns Transfers (B, C, W/C) (FIM): 5 Scootin Rollin Supine to/from Sit: 5 Sit to/from Stand: 5 Gait Training Does the Patient Walk?: Yes Gait (FIM): 4 Distance (FIM): 3=150 ft (x2) Gait Level of Assist: 4 Gait Persons Needed: 1 Gait Assistive Device: FWW pt. needed CGA and cues for broader SOHA and alignment. walker raised to higher level for better alignment and standing stops were done to improve stance and posture. assisted this date with wound vacc and w/c follow up Assessment Current Status: Good Progress PT Short Term Goals Short Term Goals Time Frame: Apr 15, 2017 Transfers (B,C,W/C) (FIM): 3 (met) Gait (FIM): 1 (met) Gait Distance Comment: 10' Gait Level of Assist: 4 Gait Assistive Device: FWW Wheelchair Distance: 150'x2 PT Nurse Staff Goals Nurse Staff Goals PT Residential Goals Time Frame: Apr 29, 2017 Transfers (B,C,W/C) (FIM): 4 Sit to Lying (QC): 6 Lying-Sitting on Side/Bed(QC): 6 Sit to Stand (QC): 3 Rollin Roll Left to Right (QC): 6 Chair/Akj-mz-Sqsmo Xfer(QC): 3 Car Transfer (QC): 3 Gait (FIM): 1 Distance: 25' Walk 10 feet (QC): 4 Walk 10ft-Uneven Surface(QC): 4 Walk 50ft with 2 Turns (QC): 88 Walk 150 ft (QC): 88 Gait Level of Assist: 4 Gait Assistive Device: FWW Stairs (FIM): 1 # of Steps: 1 1 Step (curb) (QC): 4 PT Plan Treatment/Plan Treatment Plan: Continue Plan of Care Treatment Plan: Bed Mobility, Concurrent Therapy, Education, Functional Activity Lidia, Functional Strength, Group Therapy, Gait, Safety, Therapeutic Exercise, Transfers Treatment Duration: Apr 29, 2017 Frequency: At least 5 of 7 days/Wk (IRF) Estimated Hrs Per Day: 1.5 hours per day Patient and/or Family Agrees t: Yes Safety Risks/Education Patient Education: Gait Training, Transfer Techniques Teaching Recipient: Patient Teaching Methods: Demonstration, Discussion Response to Teaching: Verbalize Understanding, Return Demonstration, Reinforcement Needed Time/GCodes Time In: 1115 Time Out: 1140 Total Billed Treatment Time: 25 Total Billed Treatment 1,GT25m G Codes Necessary: MOMO Brasher RESIDENT ADVISOR Apr 25, 2017 11:57
[2017-04-25] MEDS ORDERED: PIPERACILLIN SODIUM/TAZOBACTAM 4.5 GM in NS (IVPB) 100 ML IV NR (13:00)
[2017-04-25 18:00] VITALS: BP 105/65
[2017-04-25] MEDS: PIPERACILLIN SODIUM/TAZOBACTAM 4.5 GM in NS (IVPB) 100 ML IV SCH (19:19)
[2017-04-25] MEDS: MIRTAZAPINE 15 MG (REMERON) TAB PO SCH (20:47)
[2017-04-26] MEDS: PIPERACILLIN SODIUM/TAZOBACTAM 4.5 GM in NS (IVPB) 100 ML IV SCH ×3 (03:42→19:04)
[2017-04-26 05:41] VITALS: BP 112/70
[2017-04-26] MEDS: PANTOPRAZOLE 40 MG (PROTONIX) TAB PO SCH (05:42)
[2017-04-26] MEDS: IRON POLYSAC 150 MG CAP (NIFEREX) PO SCH ×2 (05:42→18:01)
[2017-04-26] MEDS: HYDROcodone/APAP 10 MG/325 MG (LORTAB) TAB PO PRN ×5 (05:42→23:18)
[2017-04-26] MEDS: MULTIVIT W/MINERALS TAB (THERAGRAN M) PO SCH (05:42)
[2017-04-26] MEDS: MAGNESIUM OXIDE (MAG-OX)400 MG TAB PO SCH ×2 (07:42→18:01)
[2017-04-26] MEDS: MELOXICAM 7.5 MG (MOBIC) TABLET PO SCH (07:43)
[2017-04-26] MEDS: DIVALPROEX 250 MG DELAYED RELEASE (DEPAKOTE) TAB PO SCH ×2 (07:43→20:58)
[2017-04-26] MEDS: NICOTINE 14 MG (NICODERM) PATCH TD SCH (07:44)
[2017-04-26] MEDS: DAKIN'S 1/4 STRENGTH (0.125%) 473 ML BTL TOP SCH ×2 (07:44→20:59)
[2017-04-26] MEDS: NICOTINE PATCH REMOVAL TP SCH (07:45)
[2017-04-26 18:29] VITALS: BP 119/72
[2017-04-26] MEDS: MIRTAZAPINE 15 MG (REMERON) TAB PO SCH (20:58)
[2017-04-26] MEDS: ZINC OXIDE 16% OINT (BUTT PASTE) 113 GM TUBE TOP PRN (21:00)
[2017-04-27] MEDS: PIPERACILLIN SODIUM/TAZOBACTAM 4.5 GM in NS (IVPB) 100 ML IV SCH ×3 (02:58→19:31)
[2017-04-27] MEDS: PANTOPRAZOLE 40 MG (PROTONIX) TAB PO SCH (06:11)
[2017-04-27] MEDS: IRON POLYSAC 150 MG CAP (NIFEREX) PO SCH ×2 (06:11→18:05)
[2017-04-27] MEDS: MULTIVIT W/MINERALS TAB (THERAGRAN M) PO SCH (06:11)
[2017-04-27] MEDS: HYDROcodone/APAP 10 MG/325 MG (LORTAB) TAB PO PRN ×4 (06:12→18:06)
[2017-04-27 06:19] VITALS: BP 126/70
[2017-04-27] MEDS: MAGNESIUM OXIDE (MAG-OX)400 MG TAB PO SCH ×2 (08:40→18:05)
[2017-04-27] MEDS: DIVALPROEX 250 MG DELAYED RELEASE (DEPAKOTE) TAB PO SCH ×2 (08:40→20:12)
[2017-04-27] MEDS: NICOTINE PATCH REMOVAL TP SCH (08:40)
[2017-04-27] MEDS: MELOXICAM 7.5 MG (MOBIC) TABLET PO SCH (08:40)
[2017-04-27] MEDS: NICOTINE 14 MG (NICODERM) PATCH TD SCH ×2 (08:40→09:00)
[2017-04-27] MEDS: DAKIN'S 1/4 STRENGTH (0.125%) 473 ML BTL TOP SCH ×2 (08:41→20:13)
--- NOTE | 2017-04-27 08:58 | Physical Therapy Daily Note ---
PT Daily Note-Current Subjective Pt. agrees to Rx. States he is so tired of being here and really anxious to go home. Pain Numeric Pain Scale: 3 Location: Lateral Location Body Site: Sacrum Pain Description: Pressure Mental Status Patient Orientation: Normal For Age Attachments: Other-See Comments (wounf vacc) Transfers Functional [place] Measure 0=Not Assessed/NA 4=Minimal Assistance 1=Total Assistance 5=Supervision or Setup 2=Maximal Assistance 6=Modified [place] 3=Moderate Assistance 7=Complete IndependenceIRFPAI Quality Coding Scale 6 Independent with activity with or without an assistive device 5 Patient requires set up or clean up by helper. Patient completes activity by themselves 4 Supervision or touching assist (CGA). [place] provide cues , steadying assist 3 The helper provides less than half the effort to complete the activity 2 The helper provides more than half the effort to complete the activity 1 Dependent. The helper does all the effort to complete an activity 7 Patient refused to complete or attempt activity 9 The patient did not perform the activity before the current illness or injury 88 Not attempted due to Medical conditions or safety concerns Transfers (B, C, W/C) (FIM): 5 Scootin Rollin Roll Left to Right (QC): 6 Supine to/from Sit: 6 Sit to/from Stand: 5 Sit to Lying (QC): 6 Sit to Stand (QC): 5 Chair/Ujw-vd-Pidtg Xfer(QC): 5 Bed to/from Chair: 5 Car Transfer (QC): 5 Gait Training Does the Patient Walk?: Yes Gait (FIM): 4 Distance (FIM): 3=150 ft (160x2) Walk 10 feet (QC): 5 Walk 50 ft with 2 Turns(QC): 5 Walk 150 ft (QC): 5 Walking 10ft/uneven surface-QC: 4 Gait Level of Assist: 4 Gait Persons Needed: 1 Gait Assistive Device: FWW w/c to follow with wound vacc and to sit if needed Wheelchair Training Does the Pt Use a Wheelchair?: Yes Wheelchair (FIM): 5 Wheelchair Distance: 3=150 ft Wheelchair Level of Assist: 5 Wheel 50 ft with 2 turns (QC): 5 Wheel 150 ft (QC): 5 Type of Wheelchair: Manual cues for manuevering in tight spaces Stair Training Stair Training: Handrails/: uses walker Stairs (FIM): 1 #of Steps: 1 Stairs: Pattern: Step to Level of Assist: 2 max to mod assist up single step using FWW, very difficult and laborious for pt Balance Special Test Comments unable , unsafe Exercises Supine Ex: Ankle pumps, Rolling, Heel Slides, Short Arc Quads, Hip abd/add Supine Reps: 12 Standing: Hip Abduction, Marching Standing Reps: 10 Assessment Current Status: Good Progress seems discouraged today , frustrated by IV and tubes PT Short Term Goals Short Term Goals Time Frame: Apr 15, 2017 Transfers (B,C,W/C) (FIM): 3 (met) Gait (FIM): 1 (met) Gait Distance Comment: 10' Gait Level of Assist: 4 Gait Assistive Device: FWW Wheelchair Distance: 150'x2 PT Suppository Molding Machine Operator Goals Alf Goals PT Suppository Molding Machine Operator Goals Time Frame: Apr 29, 2017 Transfers (B,C,W/C) (FIM): 4 Sit to Lying (QC): 6 Lying-Sitting on Side/Bed(QC): 6 Sit to Stand (QC): 3 Rollin Roll Left to Right (QC): 6 Chair/Nhd-xf-Jqnvx Xfer(QC): 3 Car Transfer (QC): 3 Gait (FIM): 1 Distance: 25' Walk 10 feet (QC): 4 Walk 10ft-Uneven Surface(QC): 4 Walk 50ft with 2 Turns (QC): 88 Walk 150 ft (QC): 88 Gait Level of Assist: 4 Gait Assistive Device: FWW Stairs (FIM): 1 # of Steps: 1 1 Step (curb) (QC): 4 PT Plan Treatment/Plan Treatment Plan: Continue Plan of Care Treatment Plan: Bed Mobility, Concurrent Therapy, Education, Functional Activity Lidia, Functional Strength, Group Therapy, Gait, Safety, Therapeutic Exercise, Transfers Treatment Duration: Apr 29, 2017 Frequency: At least 5 of 7 days/Wk (IRF) Estimated Hrs Per Day: 1.5 hours per day Patient and/or Family Agrees t: Yes Safety Risks/Education Patient Education: Gait Training, Transfer Techniques, Steps Teaching Recipient: Patient Teaching Methods: Demonstration, Discussion Response to Teaching: Verbalize Understanding, Return Demonstration, Reinforcement Needed Time/GCodes Time In: 800 Time Out: 900 Total Billed Treatment Time: 60 Total Billed Treatment 1,GT30m,FA30m G Codes Necessary: MOMO Brasher WORKFORCE MANAGEMENT ANALYST Apr 27, 2017 08:58
[2017-04-27] MEDS: IBUPROFEN TABLET 200 MG TAB PO PRN (09:55)
[2017-04-27] MEDS ORDERED: fentaNYL INJECTION 100 MCG/2 ML AMP IVP NR (12:00)
--- NOTE | 2017-04-27 13:00 | Occupational Ther Daily Note ---
OT Current Status-Daily Note Subjective Pt alert, sitting in w/c. Pt agreed to therapy. C/o pain though did not rate. Mental Status/Objective Patient Orientation: Person, Place, Time, Situation Functional [place] Measure 0=Not Assessed/NA 4=Minimal Assistance 1=Total Assistance 5=Supervision or Setup 2=Maximal Assistance 6=Modified [place] 3=Moderate Assistance 7=Complete [place] Attachments: Colostomy/Ileostomy, Drains, Marquez Catheter, IV ADL-Treatment Functional [place] Measure 0=Not Assessed/NA 4=Minimal Assistance 1=Total Assistance 5=Supervision or Setup 2=Maximal Assistance 6=Modified [place] 3=Moderate Assistance 7=Complete IndependenceIRFPAI Quality Coding Scale 6 Independent with activity with or without an assistive device 5 Patient requires set up or clean up by helper. Patient completes activity by themselves 4 Supervision or touching assist (CGA). [place] provide cues , steadying assist 3 The helper provides less than half the effort to complete the activity 2 The helper provides more than half the effort to complete the activity 1 Dependent. The helper does all the effort to complete an activity 7 Patient refused to complete or attempt activity 9 The patient did not perform the activity before the current illness or injury 88 Not attempted due to Medical conditions or safety concerns Eating (FIM): 6 (Pt able to complete all areas of eating by self. Dentures.) Eating (QC): 6 Grooming (FIM): 6 (Using w/c, pt is able to get self to sink and complete own grooming.) Oral Hygiene (QC): 6 Bathing (FIM): 5 (Using shower bench, grabbars, hand held shower and long handle sponge pt is able to complete own bathing.) Bathing Location: L Arm, R Arm, L Upper Leg, R Upper Leg, L Lower Leg ( including foot), R Lower Leg (including foot), Chest, Abdomen, Buttocks, Perineal Area Shower/Bathe Self (QC): 5 Upper Body (FIM): 6 (At w/c level, pt is able to retrieve clothing and don/ doff by self.) Upper Body Dressing (QC): 6 Lower Body Dressing (FIM): 3 (Assist to initiate pants/socks over feet then stands with FWW with support in standing to hike over hips. Pt is able to doff pants and socks by self.) Lower Body Dressing (QC): 3 On/Off Footwear (QC): 3 Toileting (FIM): 1 (colostomy and catheter.) Toileting Hygiene (QC): 1 Transfers (B, C, W/C) (FIM): 5 (SBA for stand pivot transfer) Shower Transfer(FIM): 5 (Using grabbars, w/c and shower bench pt able to complete with close supervision.) Other Treatment Discussed with pt different AE for home use. Tub transfer bench, grabbars and w /c for safety and independence. Pt completes functional activities at w/c level with mod I. Pt given AE magazine for reference. After therapy, pt lying down in bed with call light/phone in reach. All needs met in room. OT Short Term Goals Short Term Goals Time Frame: Apr 15, 2017 Grooming(FIM): 5 Lower Body Dressing(FIM): 4 Transfers (B,C,W/C) (FIM): 3 (met) 1=Demonstrate adherence to instructed precautions during ADL tasks. 2=Patient will verbalize/demonstrate understanding of assistive devices/ modifications for ADL. 3=Patient will improve strength/tolerance for activity to enable patient to perform ADL's. OT Agriculture Scientist Goals Agriculture Scientist Goals Time Frame: May 01, 2017 Eating (FIM): 6 (met-04/27/2017) Eating (QC): 6 (met-04/27/2017) Groomin (met-04/27/2017) Oral Hygiene (QC): 6 (met-04/27/2017) Bathing(FIM): 6 (not met) Shower/Bathe Self (QC): 6 (not met) Upper Body Dressing(FIM): 6 (met-04/27/2017) Upper Body Dressing (QC): 6 (met-04/27/2017) Lower Body Dressing(FIM): 6 (not met) Lower Body Dressing (QC): 6 (not met) On/Off Footwear (QC): 6 (not met) Toileting(FIM): 6 (not met) Toileting Hygiene (QC): 6 (not met) Toilet/Commode Transfer(FIM): 6 (not met) Toilet/Commode Transfer (QC): 6 (not met) Shower Transfer(FIM): 6 (not met) Comprehension(FIM): 4 (MET) Expression (FIM): 5 (MET) Social Interaction(FIM): 4 (MET) Problem Solving(FIM): 4 (MET) Memory(FIM): 4 (MET) Additional Goals: 1-Demonstrate ADL Tasks, 2-Verbalize Understanding, 3- ImproveStrength/Lidia 1=Demonstrate adherence to instructed precautions during ADL tasks. 2=Patient will verbalize/demonstrate understanding of assistive devices/ modifications for ADL. 3=Patient will improve strength/tolerance for activity to enable patient to perform ADL's. OT Education/Plan Problem List/Assessment Pt would benefit from skilled OT to increase his independence in basic self care to allow him to safely return to his home to live with his and to decrease caregiver burden after multiple surgeries and medical conditions. Discharge Recommendations Plan/Recommendations: Continue POC Treatment Plan/Plan of Care Patient would benefit from OT for education, treatment and training to promote independence in ADL's, mobility, safety and/or upper extremity function for ADL' s. Plan of Care: ADL Retraining, Caregiver Training, Functional Mobility, Group Exercise/Act as Ind (education, exercise, funct activities, activ tolerance, funct mobility, sociallization), UE Funct Exercise/Act, UE Neuromus Re-Ed/Coord Treatment Duration: May 01, 2017 Frequency: At least 5 of 7 days/Wk (IRF) Estimated Hrs Per Day: 1.5 hours per day Agreement: Yes Rehab Potential: Fair Time/GCodes Start Time: 09:00 Stop Time: 10:30 Total Time Billed (hr/min): 90 Billed Treatment Time 1 visit-ADL 6 (90 min) LUIS ANTONIO FOWLER Apr 27, 2017 13:00
--- NOTE | 2017-04-27 14:06 | Physical Therapy Daily Note ---
PT Daily Note-Current Subjective Pt. initially states he wants to 'pass" on PT as he is very tired and hurting a lot in his left arm where an IV was just started as well as in his belly where they just changed his dressing. This SHOP SERVICE TECHNICIAN encouraging pt. to participate and he then states "OK I think Id like to walk b/c soon they will put that IV back on and then its hard to move around" Pain Numeric Pain Scale: 4 Location: Left Location Body Site: Arm Pain Description: Stabbing Mental Status Patient Orientation: Normal For Age Attachments: Nagel Catheter, Other-See Comments ([place], AFO RLE) Transfers Functional [place] Measure 0=Not Assessed/NA 4=Minimal Assistance 1=Total Assistance 5=Supervision or Setup 2=Maximal Assistance 6=Modified [place] 3=Moderate Assistance 7=Complete IndependenceIRFPAI Quality Coding Scale 6 Independent with activity with or without an assistive device 5 Patient requires set up or clean up by helper. Patient completes activity by themselves 4 Supervision or touching assist (CGA). [place] provide cues , steadying assist 3 The helper provides less than half the effort to complete the activity 2 The helper provides more than half the effort to complete the activity 1 Dependent. The helper does all the effort to complete an activity 7 Patient refused to complete or attempt activity 9 The patient did not perform the activity before the current illness or injury 88 Not attempted due to Medical conditions or safety concerns Transfers (B, C, W/C) (FIM): 5 Scootin Rollin Roll Left to Right (QC): 6 Supine to/from Sit: 6 Sit to/from Stand: 5 Sit to Lying (QC): 6 Sit to Stand (QC): 5 Chair/Qzi-yi-Tcwpi Xfer(QC): 5 Bed to/from Chair: 5 Car Transfer (QC): 5 Gait Training Does the Patient Walk?: Yes Gait (FIM): 5 Distance (FIM): 3=150 ft (180x1,25x1) Walk 10 feet (QC): 5 Walk 50 ft with 2 Turns(QC): 5 Walk 150 ft (QC): 5 Walking 10ft/uneven surface-QC: 5 Gait Level of Assist: 5 Gait Persons Needed: 1 Gait Assistive Device: FWW w/c close behind as pt. fatigues but able top complete over 150 fti this rx. wound vacc attached to w/c , nagel attached to FWW. no [place] LOB but cues for broader SOHA Wheelchair Training Does the Pt Use a Wheelchair?: Yes Wheelchair (FIM): 5 Wheelchair Distance: 3=150 ft Wheelchair Level of Assist: 5 Wheel 50 ft with 2 turns (QC): 5 Wheel 150 ft (QC): 5 Type of Wheelchair: Manual occas assist to lock right brake Exercises Seated Therapy Exercises: Sit to stand, Long arc quads, Hip flexion Seated Reps: 10 Treatments donning AFO and shoes very difficult this afternoon. pt. easily frustrated and discouraged Assessment Current Status: Good Progress PT Short Term Goals Short Term Goals Time Frame: Apr 15, 2017 Transfers (B,C,W/C) (FIM): 3 (met) Gait (FIM): 1 (met) Gait Distance Comment: 10' Gait Level of Assist: 4 Gait Assistive Device: FWW Wheelchair Distance: 150'x2 PT Long-Term Goals Long-Term Goals PT Long-Term Goals Time Frame: Apr 29, 2017 Transfers (B,C,W/C) (FIM): 4 Sit to Lying (QC): 6 Lying-Sitting on Side/Bed(QC): 6 Sit to Stand (QC): 3 Rollin Roll Left to Right (QC): 6 Chair/Gcf-vx-Qoues Xfer(QC): 3 Car Transfer (QC): 3 Gait (FIM): 1 Distance: 25' Walk 10 feet (QC): 4 Walk 10ft-Uneven Surface(QC): 4 Walk 50ft with 2 Turns (QC): 88 Walk 150 ft (QC): 88 Gait Level of Assist: 4 Gait Assistive Device: FWW Stairs (FIM): 1 # of Steps: 1 1 Step (curb) (QC): 4 PT Plan Treatment/Plan Treatment Plan: Continue Plan of Care Treatment Plan: Bed Mobility, Concurrent Therapy, Education, Functional Activity Lidia, Functional Strength, Group Therapy, Gait, Safety, Therapeutic Exercise, Transfers Treatment Duration: Apr 29, 2017 Frequency: At least 5 of 7 days/Wk (IRF) Estimated Hrs Per Day: 1.5 hours per day Patient and/or Family Agrees t: Yes Safety Risks/Education Patient Education: Gait Training, Transfer Techniques Teaching Recipient: Patient Teaching Methods: Demonstration, Discussion Response to Teaching: Verbalize Understanding, Return Demonstration, Reinforcement Needed Time/GCodes Time In: 1330 Time Out: 1400 Total Billed Treatment Time: 30 Total Billed Treatment 1,FA10m,GT20m G Codes Necessary: MOMO Brasher SHOP SERVICE TECHNICIAN Apr 27, 2017 14:06
[2017-04-27] MEDS: fentaNYL PATCH 100 MCG (DURAGESIC) TD SCH (16:44)
[2017-04-27] MEDS: FENTANYL PATCH REMOVAL TP SCH (16:44)
[2017-04-27] MEDS: NS IV 1000 ML 1,000 ML IV PRN (16:45)
[2017-04-27 18:00] VITALS: BP 137/85
[2017-04-27] MEDS: MIRTAZAPINE 15 MG (REMERON) TAB PO SCH (20:12)
--- NOTE | 2017-04-27 20:28 | Wound Care Progress Note ---
Subjective Subjective Subjective/Events-last exam 61 year old male with complicated midline wounds from surgical dehiscence with necrotic bases. The wounds are demonstrating clear improvement in the viability of the tissue exposed at the bases, due to the use of the VAC VeriFlo Cleanse Choice device. This should be continued for 7 days. At that time the wounds will be sufficiently machinery cleaner, and could be safely changed to a standard NPWT device. PFSH: No interval change. Review of Systems Date Seen by Provider: Apr 27, 2017 Time Seen by Provider: 12:30 General: No Chills, Fatigue Pulmonary: No Dyspnea Objective Exam Last Set of Vital Signs Vital Signs Date Time Temp Pulse Resp B/P (MAP) Pulse Ox O2 Delivery O2 Flow Rate FiO2 04/27/17 18:00 98.7 87 18 137/85 (102) 94 Room Air Capillary Refill : I&O Intake and Output 04/27/17 00:00 Intake Total 1700 ml Output Total 1120 ml Balance 580 ml Intake Oral 1600 ml IV Total 100 ml Output Urine Total 800 ml Stool Total 320 ml General: Alert, Mild Distress Lungs: Normal Air Movement Skin: Other (Sup. midline abd. -- 4.7 x 1.3 x 0.8 cm base 90% slough, 10 % granulation; Inf. midline abd. -- 4.9 x 2.4 x 2.0 cm, base 75 % granulation, 25 % slough.) Results Lab Microbiology 04/23/17 Blood Culture - Preliminary, Resulted No growth 04/23/17 Urine Culture - Final, Complete Pseudomonas Aeruginosa Assessment/Plan Assessment/Plan Assessment/Plan 1. Superficial dehiscence abdominal surgical wounds, x 2, full thickness with exposed fascia. 2. Pressure ulcer, sacrum, Stage 4. 3. Debility. Plan: continue VAC VeriFlo Cleanse Choice therapy to abdominal wounds. ELIZABETH BOWDEN MD Apr 27, 2017 20:28
[2017-04-28] MEDS: PIPERACILLIN SODIUM/TAZOBACTAM 4.5 GM in NS (IVPB) 100 ML IV SCH ×3 (02:49→18:36)
[2017-04-28] MEDS: IRON POLYSAC 150 MG CAP (NIFEREX) PO SCH ×2 (05:36→16:17)
[2017-04-28] MEDS: PANTOPRAZOLE 40 MG (PROTONIX) TAB PO SCH (05:36)
[2017-04-28] MEDS: MULTIVIT W/MINERALS TAB (THERAGRAN M) PO SCH (05:36)
[2017-04-28 05:45] VITALS: BP 126/72
[2017-04-28] MEDS: NICOTINE 14 MG (NICODERM) PATCH TD SCH ×2 (09:00→09:46)
[2017-04-28] MEDS: MELOXICAM 7.5 MG (MOBIC) TABLET PO SCH (09:46)
[2017-04-28] MEDS: DIVALPROEX 250 MG DELAYED RELEASE (DEPAKOTE) TAB PO SCH ×2 (09:46→20:20)
[2017-04-28] MEDS: MAGNESIUM OXIDE (MAG-OX)400 MG TAB PO SCH ×2 (09:46→18:35)
[2017-04-28] MEDS: NICOTINE PATCH REMOVAL TP SCH (09:47)
--- NOTE | 2017-04-28 09:55 | Progress Note-Hospitalist ---
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 He current has 2 open wounds on his abdomen for which Dr Rudolph is consulted. He has been admitted to the hospital at [facility] for roughly 2 months due to this illness and has now been admitted to rehab for rehab due to debility from this critical illness. He denies any complaints at this time and is ordering breakfast. His is at bedside who is also a INVENTORY TECHNICIAN and expresses concerns about new medicines and previous issues with Lasix and hyponatremia. Otherwise no concerns and ready for rehab. Progress Notes/Assess & Plan Date Seen 04/28/17 Time Seen by Provider: 09:45 Diagonsis/Assessment & Plan Pt feels well and overall doing better. UTI treated with Zosyn and last day will be Thursday Checked meds and labs. Pt overall much more pleasant and gets tearful at times AFVSS, Pleasant, O x 3, chronically ill, thin RRR, CTAB No edema Assessment: (1) Debility Assessment & Plan: management per IRU (2) S/P AAA repair Status: Acute Assessment & Plan: Repaired in [facility] Monitor BPs with goals <130/80 (3) Colostomy in place Status: Chronic Assessment & Plan: s/p ischemic colitis Wound care as appropriate (4) Tobacco dependence Assessment & Plan: Recommended cessation (5) Pressure ulcer Status: Acute Assessment & Plan: Wound care consulted Dr Rudolph is appreciated Qualifiers: Qualified Codes: L89.150 - Pressure ulcer of sacral region 6. Anemia severe but asymptomatic w/o indication for transfusion 7. Poor appetite? 8. UTI on Zosyn Plan: Fentanyl patch 100mcg is improving pain Depression improved Plan: Monitor pt Supportive care GORGE RENTERIA DO Apr 28, 2017 09:55
--- NOTE | 2017-04-28 10:02 | Occupational Ther Daily Note ---
OT Current Status-Daily Note Subjective Pt alert, sitting on EOB. Pt agreed to therapy. C/o pain 8/10, nrsg had already given medication. Mental Status/Objective Patient Orientation: Person, Place, Time, Situation Functional [place] Measure 0=Not Assessed/NA 4=Minimal Assistance 1=Total Assistance 5=Supervision or Setup 2=Maximal Assistance 6=Modified [place] 3=Moderate Assistance 7=Complete [place] Attachments: Colostomy/Ileostomy, Drains, Marquez Catheter, IV ADL-Treatment Functional [place] Measure 0=Not Assessed/NA 4=Minimal Assistance 1=Total Assistance 5=Supervision or Setup 2=Maximal Assistance 6=Modified [place] 3=Moderate Assistance 7=Complete IndependenceIRFPAI Quality Coding Scale 6 Independent with activity with or without an assistive device 5 Patient requires set up or clean up by helper. Patient completes activity by themselves 4 Supervision or touching assist (CGA). [place] provide cues , steadying assist 3 The helper provides less than half the effort to complete the activity 2 The helper provides more than half the effort to complete the activity 1 Dependent. The helper does all the effort to complete an activity 7 Patient refused to complete or attempt activity 9 The patient did not perform the activity before the current illness or injury 88 Not attempted due to Medical conditions or safety concerns Grooming (FIM): 6 (At w/c level, pt able to complete by self.) Oral Hygiene (QC): 6 Pt completes stand pivot transfer from bed to w/c with close SBA. Other Treatment Pt maneuvered w/c to large shower room to work on tub bench transfer. Pt stated that he has a small bathroom and will have a difficulty time with transferring. Attempted to recreate that environment and attempted transfer, will need to continue to work on transfer. Pt became upset during session due to situation at home and how much his son had let the home that pt is living now deteriorate. Pt then maneuvered w/c to therapy gym to complete UE exercises for strengthening, dexterity and activity tolerance. Pt tolerated well. Pt transported back to room via w/c. After therapy, pt sitting in w/c with call light/phone in reach. All needs met in room. OT Short Term Goals Short Term Goals Time Frame: Apr 15, 2017 Grooming(FIM): 5 Lower Body Dressing(FIM): 4 Transfers (B,C,W/C) (FIM): 3 (met) 1=Demonstrate adherence to instructed precautions during ADL tasks. 2=Patient will verbalize/demonstrate understanding of assistive devices/ modifications for ADL. 3=Patient will improve strength/tolerance for activity to enable patient to perform ADL's. OT Fdc Goals Airbrush Artist Goals Time Frame: May 01, 2017 Eating (FIM): 6 (met-04/27/2017) Eating (QC): 6 (met-04/27/2017) Groomin (met-04/27/2017) Oral Hygiene (QC): 6 (met-04/27/2017) Bathing(FIM): 6 (not met) Shower/Bathe Self (QC): 6 (not met) Upper Body Dressing(FIM): 6 (met-04/27/2017) Upper Body Dressing (QC): 6 (met-04/27/2017) Lower Body Dressing(FIM): 6 (not met) Lower Body Dressing (QC): 6 (not met) On/Off Footwear (QC): 6 (not met) Toileting(FIM): 6 (not met) Toileting Hygiene (QC): 6 (not met) Toilet/Commode Transfer(FIM): 6 (not met) Toilet/Commode Transfer (QC): 6 (not met) Shower Transfer(FIM): 6 (not met) Comprehension(FIM): 4 (MET) Expression (FIM): 5 (MET) Social Interaction(FIM): 4 (MET) Problem Solving(FIM): 4 (MET) Memory(FIM): 4 (MET) Additional Goals: 1-Demonstrate ADL Tasks, 2-Verbalize Understanding, 3- ImproveStrength/Lidia 1=Demonstrate adherence to instructed precautions during ADL tasks. 2=Patient will verbalize/demonstrate understanding of assistive devices/ modifications for ADL. 3=Patient will improve strength/tolerance for activity to enable patient to perform ADL's. OT Education/Plan Problem List/Assessment Pt would benefit from skilled OT to increase his independence in basic self care to allow him to safely return to his home to live with his and to decrease caregiver burden after multiple surgeries and medical conditions. Discharge Recommendations Plan/Recommendations: Continue POC Treatment Plan/Plan of Care Patient would benefit from OT for education, treatment and training to promote independence in ADL's, mobility, safety and/or upper extremity function for ADL' s. Plan of Care: ADL Retraining, Caregiver Training, Functional Mobility, Group Exercise/Act as Ind (education, exercise, funct activities, activ tolerance, funct mobility, sociallization), UE Funct Exercise/Act, UE Neuromus Re-Ed/Coord Treatment Duration: May 01, 2017 Frequency: At least 5 of 7 days/Wk (IRF) Estimated Hrs Per Day: 1.5 hours per day Agreement: Yes Rehab Potential: Fair Time/GCodes Start Time: 08:15 Stop Time: 09:15 Total Time Billed (hr/min): 60 Billed Treatment Time 1 visit-FA 2 (35 min) EX 2 (25 min) LUIS ANTONIO FOWLER Apr 28, 2017 10:02
[2017-04-28] MEDS: HYDROcodone/APAP 10 MG/325 MG (LORTAB) TAB PO PRN ×3 (10:15→20:24)
[2017-04-28] MEDS: DAKIN'S 1/4 STRENGTH (0.125%) 473 ML BTL TOP SCH ×2 (10:16→20:21)
--- NOTE | 2017-04-28 10:17 | Physical Therapy Daily Note ---
PT Daily Note-Current Subjective Patient in wheelchair at bedside pre tx, has pain of 8/10 in his bottom. Appearance Patient BTB post tx with nurse call, phone, tray, all needs met. Mental Status Patient Orientation: Normal For Age Attachments: Colostomy/Ileostomy, Marquez Catheter wound vac Transfers Functional [place] Measure 0=Not Assessed/NA 4=Minimal Assistance 1=Total Assistance 5=Supervision or Setup 2=Maximal Assistance 6=Modified [place] 3=Moderate Assistance 7=Complete IndependenceIRFPAI Quality Coding Scale 6 Independent with activity with or without an assistive device 5 Patient requires set up or clean up by helper. Patient completes activity by themselves 4 Supervision or touching assist (CGA). [place] provide cues , steadying assist 3 The helper provides less than half the effort to complete the activity 2 The helper provides more than half the effort to complete the activity 1 Dependent. The helper does all the effort to complete an activity 7 Patient refused to complete or attempt activity 9 The patient did not perform the activity before the current illness or injury 88 Not attempted due to Medical conditions or safety concerns Transfers (B, C, W/C) (FIM): 4 Scootin Rollin Supine to/from Sit: 6 Sit to/from Stand: 4 Bed to/from Chair: 4 CGA with sit to stand and stand pivot transfers Gait Training Gait (FIM): 4 Distance: 300', 200' Gait Level of Assist: 4 Gait Persons Needed: 1 Gait Assistive Device: FWW wheelchair follow, occasional standing rest break, slow, antalgic, right side AFO Wheelchair Training Does the Pt Use a Wheelchair?: Yes Wheelchair (FIM): 5 Distance: 150'x2 Wheelchair Level of Assist: 5 Type of Wheelchair: Manual Exercises sit to stands 3 sets of 5, LAQ alternating for 5 min Treatments bed mobility, transfers, ambulation, functional strengthening, wheelchair mobility Assessment Current Status: Fair Progress improved ambulation but needed frequent rest breaks due to pain and fatigue, nurse notified about pain PT Short Term Goals Short Term Goals Time Frame: Apr 15, 2017 Transfers (B,C,W/C) (FIM): 3 (met) Gait (FIM): 1 (met) Gait Distance Comment: 10' Gait Level of Assist: 4 Gait Assistive Device: FWW Wheelchair Distance: 150'x2 PT Gun Club Manager Goals Gun Club Manager Goals PT Halfway Goals Time Frame: Apr 29, 2017 Transfers (B,C,W/C) (FIM): 4 Sit to Lying (QC): 6 Lying-Sitting on Side/Bed(QC): 6 Sit to Stand (QC): 3 Rollin Roll Left to Right (QC): 6 Chair/Ahw-of-Kmytl Xfer(QC): 3 Car Transfer (QC): 3 Gait (FIM): 1 Distance: 25' Walk 10 feet (QC): 4 Walk 10ft-Uneven Surface(QC): 4 Walk 50ft with 2 Turns (QC): 88 Walk 150 ft (QC): 88 Gait Level of Assist: 4 Gait Assistive Device: FWW Stairs (FIM): 1 # of Steps: 1 1 Step (curb) (QC): 4 PT Plan Problem List Problem List: Activity Tolerance, Functional Strength, Safety, Balance, Gait, Transfer, Bed Mobility, ROM Treatment/Plan Treatment Plan: Continue Plan of Care Treatment Plan: Bed Mobility, Concurrent Therapy, Education, Functional Activity Lidia, Functional Strength, Group Therapy, Gait, Safety, Therapeutic Exercise, Transfers Treatment Duration: Apr 29, 2017 Frequency: At least 5 of 7 days/Wk (IRF) Estimated Hrs Per Day: 1.5 hours per day Patient and/or Family Agrees t: Yes Safety Risks/Education Patient Education: Gait Training, Transfer Techniques, Correct Positioning, W/ C Management, Safety Issues Teaching Recipient: Patient Teaching Methods: Demonstration, Discussion Response to Teaching: Reinforcement Needed Time/GCodes Time In: 915 Time Out: 1015 Total Billed Treatment Time: 60 Total Billed Treatment 1 visit GT 30' WCH 15' EX 15' YARIEL GRUBER PT Apr 28, 2017 10:17
--- NOTE | 2017-04-28 11:52 | Occupational Ther Daily Note ---
OT Current Status-Daily Note Subjective Pt lying in bed, alert. Pt agreed to therapy. Pt c/o pain, 12/25, nrsg had given pain meds at 1030. Mental Status/Objective Patient Orientation: Person, Place, Time, Situation Functional [place] Measure 0=Not Assessed/NA 4=Minimal Assistance 1=Total Assistance 5=Supervision or Setup 2=Maximal Assistance 6=Modified [place] 3=Moderate Assistance 7=Complete [place] Attachments: Colostomy/Ileostomy, Drains, Marquez Catheter, IV ADL-Treatment Pt is able to complete bed mobility with bed rails, mod I. Pt was able to hike pants over hips to allow nrsg to change coccyx dressing. Pt then moved from supine to sitting EOB using bedrails by self. SBA for stand pivot transfer from bed to w/c. Pt then was able to call for own lunch. Lunch received and pt completed own set up. After therapy, pt sitting in recliner with call light/ phone in reach. All needs met in room. Functional [place] Measure 0=Not Assessed/NA 4=Minimal Assistance 1=Total Assistance 5=Supervision or Setup 2=Maximal Assistance 6=Modified [place] 3=Moderate Assistance 7=Complete IndependenceIRFPAI Quality Coding Scale 6 Independent with activity with or without an assistive device 5 Patient requires set up or clean up by helper. Patient completes activity by themselves 4 Supervision or touching assist (CGA). [place] provide cues , steadying assist 3 The helper provides less than half the effort to complete the activity 2 The helper provides more than half the effort to complete the activity 1 Dependent. The helper does all the effort to complete an activity 7 Patient refused to complete or attempt activity 9 The patient did not perform the activity before the current illness or injury 88 Not attempted due to Medical conditions or safety concerns OT Short Term Goals Short Term Goals Time Frame: Apr 15, 2017 Grooming(FIM): 5 Lower Body Dressing(FIM): 4 Transfers (B,C,W/C) (FIM): 3 (met) 1=Demonstrate adherence to instructed precautions during ADL tasks. 2=Patient will verbalize/demonstrate understanding of assistive devices/ modifications for ADL. 3=Patient will improve strength/tolerance for activity to enable patient to perform ADL's. OT [facility] Goals Data Warehouse Administrator Goals Time Frame: May 01, 2017 Eating (FIM): 6 (met-04/27/2017) Eating (QC): 6 (met-04/27/2017) Groomin (met-04/27/2017) Oral Hygiene (QC): 6 (met-04/27/2017) Bathing(FIM): 6 (not met) Shower/Bathe Self (QC): 6 (not met) Upper Body Dressing(FIM): 6 (met-04/27/2017) Upper Body Dressing (QC): 6 (met-04/27/2017) Lower Body Dressing(FIM): 6 (not met) Lower Body Dressing (QC): 6 (not met) On/Off Footwear (QC): 6 (not met) Toileting(FIM): 6 (not met) Toileting Hygiene (QC): 6 (not met) Toilet/Commode Transfer(FIM): 6 (not met) Toilet/Commode Transfer (QC): 6 (not met) Shower Transfer(FIM): 6 (not met) Comprehension(FIM): 4 (MET) Expression (FIM): 5 (MET) Social Interaction(FIM): 4 (MET) Problem Solving(FIM): 4 (MET) Memory(FIM): 4 (MET) Additional Goals: 1-Demonstrate ADL Tasks, 2-Verbalize Understanding, 3- ImproveStrength/Lidia 1=Demonstrate adherence to instructed precautions during ADL tasks. 2=Patient will verbalize/demonstrate understanding of assistive devices/ modifications for ADL. 3=Patient will improve strength/tolerance for activity to enable patient to perform ADL's. OT Education/Plan Problem List/Assessment Pt would benefit from skilled OT to increase his independence in basic self care to allow him to safely return to his home to live with his and to decrease caregiver burden after multiple surgeries and medical conditions. Discharge Recommendations Plan/Recommendations: Continue POC Treatment Plan/Plan of Care Patient would benefit from OT for education, treatment and training to promote independence in ADL's, mobility, safety and/or upper extremity function for ADL' s. Plan of Care: ADL Retraining, Caregiver Training, Functional Mobility, Group Exercise/Act as Ind (education, exercise, funct activities, activ tolerance, funct mobility, sociallization), UE Funct Exercise/Act, UE Neuromus Re-Ed/Coord Treatment Duration: May 01, 2017 Frequency: At least 5 of 7 days/Wk (IRF) Estimated Hrs Per Day: 1.5 hours per day Agreement: Yes Rehab Potential: Fair Time/GCodes Start Time: 11:00 Stop Time: 11:30 Total Time Billed (hr/min): 30 Billed Treatment Time 1 visit-FA 2 (30 min) LUIS ANTONIO FOWLER Apr 28, 2017 11:52
--- NOTE | 2017-04-28 14:16 | Physical Therapy Daily Note ---
PT Daily Note-Current Subjective Patient agrees to PT. Pain Numeric Pain Scale: 5-Moderate Pain Location: Posterior, Soft Tissue Location Body Site: Sacrum Pain Description: Pressure, Burning Mental Status Patient Orientation: Normal For Age Attachments: Marquez Catheter abdominal wound vac Transfers Functional [place] Measure 0=Not Assessed/NA 4=Minimal Assistance 1=Total Assistance 5=Supervision or Setup 2=Maximal Assistance 6=Modified [place] 3=Moderate Assistance 7=Complete IndependenceIRFPAI Quality Coding Scale 6 Independent with activity with or without an assistive device 5 Patient requires set up or clean up by helper. Patient completes activity by themselves 4 Supervision or touching assist (CGA). [place] provide cues , steadying assist 3 The helper provides less than half the effort to complete the activity 2 The helper provides more than half the effort to complete the activity 1 Dependent. The helper does all the effort to complete an activity 7 Patient refused to complete or attempt activity 9 The patient did not perform the activity before the current illness or injury 88 Not attempted due to Medical conditions or safety concerns Rollin Roll Left to Right (QC): 5 Exercises Supine Ex: Quad Set, Rolling, Glut sets, Heel Slides, Straight leg raise, Hip abd/add Supine Reps: 15 (2 sets with recovery periods due to fatigue/weakness) Assessment Patient reports he is ready to return to home. He is progressing with treatment plan. PT Short Term Goals Short Term Goals Time Frame: Apr 15, 2017 Transfers (B,C,W/C) (FIM): 3 (met) Gait (FIM): 1 (met) Gait Distance Comment: 10' Gait Level of Assist: 4 Gait Assistive Device: FWW Wheelchair Distance: 150'x2 PT Jammer Hooker Goals Fdc Goals PT Fdc Goals Time Frame: Apr 29, 2017 Transfers (B,C,W/C) (FIM): 4 Sit to Lying (QC): 6 Lying-Sitting on Side/Bed(QC): 6 Sit to Stand (QC): 3 Rollin Roll Left to Right (QC): 6 Chair/Idd-hy-Wdqxm Xfer(QC): 3 Car Transfer (QC): 3 Gait (FIM): 1 Distance: 25' Walk 10 feet (QC): 4 Walk 10ft-Uneven Surface(QC): 4 Walk 50ft with 2 Turns (QC): 88 Walk 150 ft (QC): 88 Gait Level of Assist: 4 Gait Assistive Device: FWW Stairs (FIM): 1 # of Steps: 1 1 Step (curb) (QC): 4 PT Plan Treatment/Plan Treatment Plan: Continue Plan of Care Treatment Plan: Bed Mobility, Concurrent Therapy, Education, Functional Activity Lidia, Functional Strength, Group Therapy, Gait, Safety, Therapeutic Exercise, Transfers Treatment Duration: Apr 29, 2017 Frequency: At least 5 of 7 days/Wk (IRF) Estimated Hrs Per Day: 1.5 hours per day Patient and/or Family Agrees t: Yes Time/GCodes Time In: 1337 Time Out: 1407 Total Billed Treatment Time: 30 Total Billed Treatment 1 visit EX x 2 30 min CHRISTIANE GRANADOS PT Apr 28, 2017 14:16
--- NOTE | 2017-04-28 17:03 | PM & R (SOAP) Progress Note ---
Subjective Time Seen by Provider: 17:00 Subjective/Events-last exam Patient was seen in his rrom this afternoon Appreciate therapy and DR Sawant notes and orderes Patient SBA for transfers Patient remians with colostomy care for bowel and Marquez catheter for bladder and wound vac for midline surgical wound Patient with sacral wound being treated with topical care and pressure relief with DR Chavez follwinjoey wounds Patient on IV antibiotics for UTI Patient with contact precautions due to MRSA in Wound. Review of Systems Musculoskeletal: back pain Objective Exam Last Set of Vital Signs Vital Signs Date Time Temp Pulse Resp B/P (MAP) Pulse Ox O2 Delivery O2 Flow Rate FiO2 04/28/17 08:00 Room Air 04/28/17 05:45 98.5 87 18 126/72 (90) 92 Capillary Refill : I&O Intake and Output 04/28/17 00:00 Intake Total 950 ml Output Total 1275 ml Balance -325 ml Intake Oral 850 ml IV Total 100 ml Output Urine Total 1000 ml Stool Total 275 ml # Bowel Movements 1 General: Alert, Mild Distress HEENT: Atraumatic, PERRLA, EOMI, Mucous Memb Moist/[place] Neck: Supple, No JVD Lungs: Normal Air Movement Heart: Regular Rate Abdomen: Normal Bowel Sounds, Soft, No Tenderness, Other (colostomy functioning midline surgicaal sites as per dr chavez) Skin: Other (Sup. midline abd. -- 4.7 x 1.3 x 0.8 cm base 90% slough, 10 % granulation; Inf. midline abd. 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 Family patient training re colostomy care and pressure relief for sacral pressure sore Pain management Next Team Conference tomorrow 04-29-17 LEISA GEORGE MD Apr 28, 2017 17:03
[2017-04-28 18:00] VITALS: BP 128/80
[2017-04-28] MEDS: MIRTAZAPINE 15 MG (REMERON) TAB PO SCH (20:21)
[2017-04-29] MEDS: PIPERACILLIN SODIUM/TAZOBACTAM 4.5 GM in NS (IVPB) 100 ML IV SCH ×3 (03:24→20:45)
[2017-04-29 06:06] VITALS: BP 131/69
[2017-04-29] MEDS: MULTIVIT W/MINERALS TAB (THERAGRAN M) PO SCH (06:10)
[2017-04-29] MEDS: PANTOPRAZOLE 40 MG (PROTONIX) TAB PO SCH (06:10)
[2017-04-29] MEDS: IRON POLYSAC 150 MG CAP (NIFEREX) PO SCH ×2 (06:10→17:06)
[2017-04-29] MEDS: NICOTINE PATCH REMOVAL TP SCH (07:38)
[2017-04-29] MEDS: NICOTINE 14 MG (NICODERM) PATCH TD SCH (07:38)
[2017-04-29] MEDS: DIVALPROEX 250 MG DELAYED RELEASE (DEPAKOTE) TAB PO SCH ×2 (08:14→20:46)
[2017-04-29] MEDS: MELOXICAM 7.5 MG (MOBIC) TABLET PO SCH (08:14)
[2017-04-29] MEDS: MAGNESIUM OXIDE (MAG-OX)400 MG TAB PO SCH ×2 (08:14→17:06)
[2017-04-29] MEDS: DAKIN'S 1/4 STRENGTH (0.125%) 473 ML BTL TOP SCH ×2 (08:16→20:47)
[2017-04-29] MEDS: HYDROcodone/APAP 10 MG/325 MG (LORTAB) TAB PO PRN ×3 (08:22→21:12)
--- NOTE | 2017-04-29 09:01 | Occupational Ther Daily Note ---
OT Current Status-Daily Note Subjective Pt alert, sitting in w/c. Pt agreed to therapy. Pt c/o pain, rated 8/10. Pt frustrated on how much work his will have to do to take care of him. [place] reminded pt how much that he does for himself. Mental Status/Objective Patient Orientation: Person, Place, Time, Situation Functional [place] Measure 0=Not Assessed/NA 4=Minimal Assistance 1=Total Assistance 5=Supervision or Setup 2=Maximal Assistance 6=Modified [place] 3=Moderate Assistance 7=Complete [place] Attachments: Colostomy/Ileostomy, Drains, Marquez Catheter, IV ADL-Treatment Pt maneuvered w/c into bathroom by self and positioned w/c for transfer into shower. Pt transferred with close SBA and assist to manipulate tubing. Pt completed bathing/drying by self. Grooming completed at w/c level, mod I. Pt is able to retrieve clothing at w/c level. Dons/doff shirt by self. Doffs lower body clothing while stabilizing self using grabbar or FWW with CGA. Assist to don socks and pants over feet then is able to hike over hips with assist for balance, at times requires assist to hike over bandage on buttocks. Pt gets easily frustrated with AE for lower body dressing. Pt sets self up for eating and uses regular utensils. Mod I for bed mobility using grabbars. Pt completed stand pivot transfer using w/c and bed rail to go from w/c to EOB with SBA. After therapy, pt lying in bed with call light/phone in reach. All needs met in room. Functional [place] Measure 0=Not Assessed/NA 4=Minimal Assistance 1=Total Assistance 5=Supervision or Setup 2=Maximal Assistance 6=Modified [place] 3=Moderate Assistance 7=Complete IndependenceIRFPAI Quality Coding Scale 6 Independent with activity with or without an assistive device 5 Patient requires set up or clean up by helper. Patient completes activity by themselves 4 Supervision or touching assist (CGA). [place] provide cues , steadying assist 3 The helper provides less than half the effort to complete the activity 2 The helper provides more than half the effort to complete the activity 1 Dependent. The helper does all the effort to complete an activity 7 Patient refused to complete or attempt activity 9 The patient did not perform the activity before the current illness or injury 88 Not attempted due to Medical conditions or safety concerns Grooming (FIM): 6 Oral Hygiene (QC): 6 Bathing (FIM): 5 Bathing Location: L Arm, R Arm, L Upper Leg, R Upper Leg, L Lower Leg ( including foot), R Lower Leg (including foot), Chest, Abdomen, Buttocks, Perineal Area Shower/Bathe Self (QC): 5 Upper Body (FIM): 6 Upper Body Dressing (QC): 6 Lower Body Dressing (FIM): 3 Lower Body Dressing (QC): 3 On/Off Footwear (QC): 2 Shower Transfer(FIM): 5 OT Short Term Goals Short Term Goals Time Frame: Apr 15, 2017 Grooming(FIM): 5 Lower Body Dressing(FIM): 4 Transfers (B,C,W/C) (FIM): 3 (met) 1=Demonstrate adherence to instructed precautions during ADL tasks. 2=Patient will verbalize/demonstrate understanding of assistive devices/ modifications for ADL. 3=Patient will improve strength/tolerance for activity to enable patient to perform ADL's. OT Tree Girdler Goals [facility] Goals Time Frame: May 01, 2017 Eating (FIM): 6 (met-04/27/2017) Eating (QC): 6 (met-04/27/2017) Groomin (met-04/27/2017) Oral Hygiene (QC): 6 (met-04/27/2017) Bathing(FIM): 6 (not met) Shower/Bathe Self (QC): 6 (not met) Upper Body Dressing(FIM): 6 (met-04/27/2017) Upper Body Dressing (QC): 6 (met-04/27/2017) Lower Body Dressing(FIM): 6 (not met) Lower Body Dressing (QC): 6 (not met) On/Off Footwear (QC): 6 (not met) Toileting(FIM): 6 (not met) Toileting Hygiene (QC): 6 (not met) Toilet/Commode Transfer(FIM): 6 (not met) Toilet/Commode Transfer (QC): 6 (not met) Shower Transfer(FIM): 6 (not met) Comprehension(FIM): 4 (MET) Expression (FIM): 5 (MET) Social Interaction(FIM): 4 (MET) Problem Solving(FIM): 4 (MET) Memory(FIM): 4 (MET) Additional Goals: 1-Demonstrate ADL Tasks, 2-Verbalize Understanding, 3- ImproveStrength/Lidia 1=Demonstrate adherence to instructed precautions during ADL tasks. 2=Patient will verbalize/demonstrate understanding of assistive devices/ modifications for ADL. 3=Patient will improve strength/tolerance for activity to enable patient to perform ADL's. OT Education/Plan Problem List/Assessment Pt would benefit from skilled OT to increase his independence in basic self care to allow him to safely return to his home to live with his and to decrease caregiver burden after multiple surgeries and medical conditions. Discharge Recommendations Plan/Recommendations: Continue POC Treatment Plan/Plan of Care Patient would benefit from OT for education, treatment and training to promote independence in ADL's, mobility, safety and/or upper extremity function for ADL' s. Plan of Care: ADL Retraining, Caregiver Training, Functional Mobility, Group Exercise/Act as Ind (education, exercise, funct activities, activ tolerance, funct mobility, sociallization), UE Funct Exercise/Act, UE Neuromus Re-Ed/Coord Treatment Duration: May 01, 2017 Frequency: At least 5 of 7 days/Wk (IRF) Estimated Hrs Per Day: 1.5 hours per day Agreement: Yes Rehab Potential: Fair Time/GCodes Start Time: 08:00 Stop Time: 09:00 Total Time Billed (hr/min): 60 Billed Treatment Time 1 visit-ADL 4 (60 min) LUIS ANTONIO FOWLER Apr 29, 2017 09:01
[2017-04-29] MEDS ORDERED: fentaNYL INJECTION 100 MCG/2 ML AMP IVP NR (09:30)
[2017-04-29] MEDS: LIDOCAINE 1% INJ 20 ML (XYLOCAINE) VIAL INJ PRN (09:39)
--- NOTE | 2017-04-29 09:41 | PM & R (SOAP) Progress Note ---
Subjective Time Seen by Provider: 09:15 Subjective/Events-last exam Patient was seen in his room this AM with vmware systems administrator IV Fentanyl ordered for wound vac change Abdominal wounds viewed..Discussed case with Wound care Nurse and rehabilitation services manager.. Patient SBA for transfers. Review of Systems Musculoskeletal: other (sacral wound and Abd wound pain with drssing change Measurements of wound being kept) Neurological: Weakness Objective Exam Last Set of Vital Signs Vital Signs Date Time Temp Pulse Resp B/P (MAP) Pulse Ox O2 Delivery O2 Flow Rate FiO2 04/29/17 08:00 Room Air 04/29/17 06:06 99.9 81 18 131/69 (89) 91 Capillary Refill : I&O Intake and Output 04/29/17 00:00 Intake Total 1690 ml Output Total 1175 ml Balance 515 ml Intake Oral 1490 ml IV Total 200 ml Output Urine Total 975 ml Stool Total 200 ml # Bowel Movements 1 General: Alert, Mild Distress HEENT: Atraumatic, PERRLA, EOMI, Mucous Memb Moist/[place] Neck: Supple, No JVD Lungs: Normal Air Movement Heart: Regular Rate Abdomen: Normal Bowel Sounds, Soft, No Tenderness, Other (colostomy functioning midline surgicaal sites as per dr rudolph) Skin: Other (Sup. midline abd. -- 4.7 x 1.3 x 0.8 cm base 90% slough, 10 % granulation; Inf. midline abd. 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 Family patient training re colostomy care and pressure relief for sacral pressure sore Next Team Conference later today-See report for full functional update and POC and ELOS Fentanyl iv ordered for wound vac change see orders LEISA GEORGE MD Apr 29, 2017 09:41
--- NOTE | 2017-04-29 11:13 | Physical Therapy Daily Note ---
PT Daily Note-Current Subjective Patient in bed pre tx, agrees to PT, needs to get dressed. Patient has 9/10 pain in his bottom, he requests to ambulate more this morning so he can stay off his bottom. Appearance Patient in bed post tx with nurse call, phone, tray, all needs met. Mental Status Patient Orientation: Normal For Age Attachments: Colostomy/Ileostomy, Marquez Catheter wound vac Transfers Functional [place] Measure 0=Not Assessed/NA 4=Minimal Assistance 1=Total Assistance 5=Supervision or Setup 2=Maximal Assistance 6=Modified [place] 3=Moderate Assistance 7=Complete IndependenceIRFPAI Quality Coding Scale 6 Independent with activity with or without an assistive device 5 Patient requires set up or clean up by helper. Patient completes activity by themselves 4 Supervision or touching assist (CGA). [place] provide cues , steadying assist 3 The helper provides less than half the effort to complete the activity 2 The helper provides more than half the effort to complete the activity 1 Dependent. The helper does all the effort to complete an activity 7 Patient refused to complete or attempt activity 9 The patient did not perform the activity before the current illness or injury 88 Not attempted due to Medical conditions or safety concerns Transfers (B, C, W/C) (FIM): 5 Scootin Rollin Supine to/from Sit: 6 Sit to/from Stand: 5 Bed to/from Chair: 5 Gait Training Gait (FIM): 4 Distance: 300'x3 Gait Level of Assist: 4 Gait Persons Needed: 2 Gait Assistive Device: FWW wheelchair follow, CGA, slow, antalgic, right side AFO, needs occasional standing rest break, gets SOB but resolves with resting Wheelchair Training Does the Pt Use a Wheelchair?: Yes Wheelchair (FIM): 6 Distance: 150'x2 Type of Wheelchair: Manual Exercises right side ankle stretching PROM Treatments bed mobility and transfers, ambulation, wheelchair mobility, stretching/ROM Assessment Current Status: Fair Progress improving endurance but he needs substantial rest breaks between ambulation PT Short Term Goals Short Term Goals Time Frame: Apr 15, 2017 Transfers (B,C,W/C) (FIM): 3 (met) Gait (FIM): 1 (met) Gait Distance Comment: 10' Gait Level of Assist: 4 Gait Assistive Device: FWW Wheelchair Distance: 150'x2 PT [facility] Goals Legal Records Clerk Goals PT [facility] Goals Time Frame: Apr 29, 2017 Transfers (B,C,W/C) (FIM): 4 Sit to Lying (QC): 6 Lying-Sitting on Side/Bed(QC): 6 Sit to Stand (QC): 3 Rollin Roll Left to Right (QC): 6 Chair/Hms-ds-Faeoi Xfer(QC): 3 Car Transfer (QC): 3 Gait (FIM): 1 Distance: 25' Walk 10 feet (QC): 4 Walk 10ft-Uneven Surface(QC): 4 Walk 50ft with 2 Turns (QC): 88 Walk 150 ft (QC): 88 Gait Level of Assist: 4 Gait Assistive Device: FWW Stairs (FIM): 1 # of Steps: 1 1 Step (curb) (QC): 4 PT Plan Problem List Problem List: Activity Tolerance, Functional Strength, Safety, Balance, Gait, Transfer, Bed Mobility, ROM Treatment/Plan Treatment Plan: Continue Plan of Care Treatment Plan: Bed Mobility, Concurrent Therapy, Education, Functional Activity Lidia, Functional Strength, Group Therapy, Gait, Safety, Therapeutic Exercise, Transfers Treatment Duration: Apr 29, 2017 Frequency: At least 5 of 7 days/Wk (IRF) Estimated Hrs Per Day: 1.5 hours per day Patient and/or Family Agrees t: Yes Safety Risks/Education Patient Education: Gait Training, Transfer Techniques, Correct Positioning, W/ C Management, Safety Issues Teaching Recipient: Patient Teaching Methods: Demonstration, Discussion Response to Teaching: Reinforcement Needed Time/GCodes Time In: 1015 Time Out: 1115 Total Billed Treatment Time: 60 Total Billed Treatment 1 visit [facility] 10' GT 45' EX 5' YARIEL GRUBER PT Apr 29, 2017 11:13
--- NOTE | 2017-04-29 11:16 | Physical Therapy Rehab Re-Cert ---
PT Re-Certification Form Physical Therapy Treatment Plan: Continue Plan of Care Bed Mobility, Concurrent Therapy, Education, Functional Activity Lidia, Functional Strength, Group Therapy, Gait, Safety, Therapeutic Exercise, Transfers Patient is making improvements in strength and endurance and now performs bed mobility with mod I, transfers with SBA and ambulates 300' with CGA using a rolling walker, LTG changed to reflect these improvements Treatment Duration: 05/06/17 Frequency: At least 5 of 7 days/Wk (IRF) Estimated Hrs Per Day: 1.5 hours per day Patient and/or Family Agrees t: Yes Rehab Potential: Fair PT Short Term Goals Short Term Goals Time Frame: Apr 15, 2017 Transfers (B,C,W/C) (FIM): 3 (met) Gait (FIM): 1 (met) Gait Distance Comment: 10' Gait Level of Assist: 4 Gait Assistive Device: FWW Wheelchair Distance: 150'x2 PT Grazing Aide Goals Longterm Goals PT Longterm Goals Time Frame: Apr 29, 2017 Transfers (B,C,W/C) (FIM): 5 Gait (FIM): 5 Distance: 300' Gait Level of Assist: 5 Gait Assistive Device: FWW Stairs (FIM): 1 # of Steps: 1 YARIEL GRUBER PT Apr 29, 2017 11:16
--- NOTE | 2017-04-29 13:10 | Occupational Ther Daily Note ---
OT Current Status-Daily Note Subjective Pt sleeping in bed. Pt agreed to therapy. C/o pain 12/25. Pt has had pain medications. Mental Status/Objective Patient Orientation: Person, Place, Time, Situation Functional [place] Measure 0=Not Assessed/NA 4=Minimal Assistance 1=Total Assistance 5=Supervision or Setup 2=Maximal Assistance 6=Modified [place] 3=Moderate Assistance 7=Complete [place] Attachments: Colostomy/Ileostomy, Drains, Marquez Catheter, IV ADL-Treatment Pt able to complete bed mobility to hike pants down over hips. Pt then was able to go from supine to sitting EOB using bedrail by self. Pt stood and was able to hike pants up over hips with both hands, no LOB noted, close SBA. Pt demonstrated ability to lift feet off of ground in standing using FWW. Pt then laid back down in bed and positioned self. After therapy, pt lying in bed with call light/phone in reach. All needs met in room. Functional [place] Measure 0=Not Assessed/NA 4=Minimal Assistance 1=Total Assistance 5=Supervision or Setup 2=Maximal Assistance 6=Modified [place] 3=Moderate Assistance 7=Complete IndependenceIRFPAI Quality Coding Scale 6 Independent with activity with or without an assistive device 5 Patient requires set up or clean up by helper. Patient completes activity by themselves 4 Supervision or touching assist (CGA). [place] provide cues , steadying assist 3 The helper provides less than half the effort to complete the activity 2 The helper provides more than half the effort to complete the activity 1 Dependent. The helper does all the effort to complete an activity 7 Patient refused to complete or attempt activity 9 The patient did not perform the activity before the current illness or injury 88 Not attempted due to Medical conditions or safety concerns OT Short Term Goals Short Term Goals Time Frame: Apr 15, 2017 Grooming(FIM): 5 Lower Body Dressing(FIM): 4 Transfers (B,C,W/C) (FIM): 3 (met) 1=Demonstrate adherence to instructed precautions during ADL tasks. 2=Patient will verbalize/demonstrate understanding of assistive devices/ modifications for ADL. 3=Patient will improve strength/tolerance for activity to enable patient to perform ADL's. OT [facility] Goals Track Vehicle Repairer Goals Time Frame: May 01, 2017 Eating (FIM): 6 (met-04/27/2017) Eating (QC): 6 (met-04/27/2017) Groomin (met-04/27/2017) Oral Hygiene (QC): 6 (met-04/27/2017) Bathing(FIM): 6 (not met) Shower/Bathe Self (QC): 6 (not met) Upper Body Dressing(FIM): 6 (met-04/27/2017) Upper Body Dressing (QC): 6 (met-04/27/2017) Lower Body Dressing(FIM): 6 (not met) Lower Body Dressing (QC): 6 (not met) On/Off Footwear (QC): 6 (not met) Toileting(FIM): 6 (not met) Toileting Hygiene (QC): 6 (not met) Toilet/Commode Transfer(FIM): 6 (not met) Toilet/Commode Transfer (QC): 6 (not met) Shower Transfer(FIM): 6 (not met) Comprehension(FIM): 4 (MET) Expression (FIM): 5 (MET) Social Interaction(FIM): 4 (MET) Problem Solving(FIM): 4 (MET) Memory(FIM): 4 (MET) Additional Goals: 1-Demonstrate ADL Tasks, 2-Verbalize Understanding, 3- ImproveStrength/Lidia 1=Demonstrate adherence to instructed precautions during ADL tasks. 2=Patient will verbalize/demonstrate understanding of assistive devices/ modifications for ADL. 3=Patient will improve strength/tolerance for activity to enable patient to perform ADL's. OT Education/Plan Problem List/Assessment Pt would benefit from skilled OT to increase his independence in basic self care to allow him to safely return to his home to live with his and to decrease caregiver burden after multiple surgeries and medical conditions. Discharge Recommendations Plan/Recommendations: Continue POC Treatment Plan/Plan of Care Patient would benefit from OT for education, treatment and training to promote independence in ADL's, mobility, safety and/or upper extremity function for ADL' s. Plan of Care: ADL Retraining, Caregiver Training, Functional Mobility, Group Exercise/Act as Ind (education, exercise, funct activities, activ tolerance, funct mobility, sociallization), UE Funct Exercise/Act, UE Neuromus Re-Ed/Coord Treatment Duration: May 01, 2017 Frequency: At least 5 of 7 days/Wk (IRF) Estimated Hrs Per Day: 1.5 hours per day Agreement: Yes Rehab Potential: Fair Time/GCodes Start Time: 11:30 Stop Time: 12:00 Total Time Billed (hr/min): 30 Billed Treatment Time 1 visit-FA 2 (30 min) LUIS ANTONIO FOWLER Apr 29, 2017 13:09
--- NOTE | 2017-04-29 15:37 | Physical Therapy Daily Note ---
PT Daily Note-Current Subjective Patient in bed sleeping pre tx, agrees to PT upon waking. Patient has 5/10 pain in his bottom but gets worse with movement. Appearance Patient in bed post tx with nurse call, phone, tray, all needs met. Mental Status Patient Orientation: Normal For Age Attachments: Colostomy/Ileostomy, Marquez Catheter wound vac Transfers Functional [place] Measure 0=Not Assessed/NA 4=Minimal Assistance 1=Total Assistance 5=Supervision or Setup 2=Maximal Assistance 6=Modified [place] 3=Moderate Assistance 7=Complete IndependenceIRFPAI Quality Coding Scale 6 Independent with activity with or without an assistive device 5 Patient requires set up or clean up by helper. Patient completes activity by themselves 4 Supervision or touching assist (CGA). [place] provide cues , steadying assist 3 The helper provides less than half the effort to complete the activity 2 The helper provides more than half the effort to complete the activity 1 Dependent. The helper does all the effort to complete an activity 7 Patient refused to complete or attempt activity 9 The patient did not perform the activity before the current illness or injury 88 Not attempted due to Medical conditions or safety concerns Exercises Supine Ex: Ankle pumps, Quad Set, Glut sets, Heel Slides, Short Arc Quads, Straight leg raise, Hip abd/add Supine Reps: 20 PROM/stretching of right ankle, he can be stretched to achieve neutral dorsiflexion Treatments functional strengthening, ROM Assessment Current Status: Fair Progress PT Short Term Goals Short Term Goals Time Frame: Apr 15, 2017 Transfers (B,C,W/C) (FIM): 3 (met) Gait (FIM): 1 (met) Gait Distance Comment: 10' Gait Level of Assist: 4 Gait Assistive Device: FWW Wheelchair Distance: 150'x2 PT M[facility] Goals Divine Healer Goals PT Divine Healer Goals Time Frame: Apr 29, 2017 Transfers (B,C,W/C) (FIM): 5 Sit to Lying (QC): 6 Lying-Sitting on Side/Bed(QC): 6 Sit to Stand (QC): 3 Rollin Roll Left to Right (QC): 6 Chair/Ipy-zt-Wliqv Xfer(QC): 3 Car Transfer (QC): 3 Gait (FIM): 5 Distance: 300' Walk 10 feet (QC): 4 Walk 10ft-Uneven Surface(QC): 4 Walk 50ft with 2 Turns (QC): 88 Walk 150 ft (QC): 88 Gait Level of Assist: 5 Gait Assistive Device: FWW Stairs (FIM): 1 # of Steps: 1 1 Step (curb) (QC): 4 PT Plan Problem List Problem List: Activity Tolerance, Functional Strength, Safety, Balance, Gait, Transfer, Bed Mobility, ROM Treatment/Plan Treatment Plan: Continue Plan of Care Treatment Plan: Bed Mobility, Concurrent Therapy, Education, Functional Activity Lidia, Functional Strength, Group Therapy, Gait, Safety, Therapeutic Exercise, Transfers Treatment Duration: Apr 29, 2017 Frequency: At least 5 of 7 days/Wk (IRF) Estimated Hrs Per Day: 1.5 hours per day Patient and/or Family Agrees t: Yes Safety Risks/Education Patient Education: Correct Positioning, Safety Issues Teaching Recipient: Patient Teaching Methods: Demonstration, Discussion Response to Teaching: Reinforcement Needed Time/GCodes Time In: 1505 Time Out: 1535 Total Billed Treatment Time: 30 Total Billed Treatment 1 visit EX 30' YARIEL GRUBER PT Apr 29, 2017 15:37
[2017-04-29 17:33] VITALS: BP 134/76
[2017-04-29] MEDS: MIRTAZAPINE 15 MG (REMERON) TAB PO SCH (20:46)
[2017-04-30] MEDS: HYDROcodone/APAP 10 MG/325 MG (LORTAB) TAB PO PRN ×4 (02:40→20:06)
[2017-04-30] MEDS: PIPERACILLIN SODIUM/TAZOBACTAM 4.5 GM in NS (IVPB) 100 ML IV SCH ×3 (04:38→20:13)
[2017-04-30 05:07] VITALS: BP 146/80
[2017-04-30] MEDS: PANTOPRAZOLE 40 MG (PROTONIX) TAB PO SCH (06:00)
[2017-04-30] MEDS: MULTIVIT W/MINERALS TAB (THERAGRAN M) PO SCH (06:00)
[2017-04-30] MEDS: IRON POLYSAC 150 MG CAP (NIFEREX) PO SCH ×2 (06:00→17:15)
[2017-04-30] MEDS: MAGNESIUM OXIDE (MAG-OX)400 MG TAB PO SCH ×2 (07:54→17:15)
[2017-04-30] MEDS: MELOXICAM 7.5 MG (MOBIC) TABLET PO SCH (07:54)
[2017-04-30] MEDS: DIVALPROEX 250 MG DELAYED RELEASE (DEPAKOTE) TAB PO SCH ×2 (07:54→20:06)
[2017-04-30] MEDS: NICOTINE PATCH REMOVAL TP SCH (07:56)
[2017-04-30] MEDS: NICOTINE 14 MG (NICODERM) PATCH TD SCH (07:57)
--- NOTE | 2017-04-30 09:02 | Physical Therapy Daily Note ---
PT Daily Note-Current Subjective Pt. in bed on arrival, states he cannot have therapies until his IV is finished. Nurse informs this DRAFTING SUPERVISOR and pt. that this IV is new and is for UTI and will run 4 hrs at a time every 8 hrs and will be difficult to schedule all therapies around so it will need to be taken with his as he walks or wheels in w /c. Pt. angry and states "someone rigged this to get more $$" "I just cant believe you, You're an unbelievable person". Pt. called this DRAFTING SUPERVISOR a "bitch" as I was leaving the room to retrieve a gown to wear instead of his tshirt . Pt. wanted the IV DCd so he could wear a Tshirt. This DRAFTING SUPERVISOR tried to soothe pt. that he would not have to manage the tubes . They would all be safe and managed by others during his Rx. Discussion with wound nurse and tending RN today reveal pt. is on meds for depression and has shown anger and building frustration as of late. Pain Numeric Pain Scale: 0-No Pain Mental Status Patient Orientation: Person, Place, Time, Eyes Open, Situation, [place] Attachments: Colostomy/Ileostomy, Marquez Catheter, Other-See Comments (wound vacc), IV Transfers Functional [place] Measure 0=Not Assessed/NA 4=Minimal Assistance 1=Total Assistance 5=Supervision or Setup 2=Maximal Assistance 6=Modified [place] 3=Moderate Assistance 7=Complete IndependenceIRFPAI Quality Coding Scale 6 Independent with activity with or without an assistive device 5 Patient requires set up or clean up by helper. Patient completes activity by themselves 4 Supervision or touching assist (CGA). [place] provide cues , steadying assist 3 The helper provides less than half the effort to complete the activity 2 The helper provides more than half the effort to complete the activity 1 Dependent. The helper does all the effort to complete an activity 7 Patient refused to complete or attempt activity 9 The patient did not perform the activity before the current illness or injury 88 Not attempted due to Medical conditions or safety concerns Transfers (B, C, W/C) (FIM): 5 Scootin Rollin Roll Left to Right (QC): 6 Supine to/from Sit: 5 Sit to/from Stand: 5 Sit to Lying (QC): 5 Sit to Stand (QC): 5 Chair/Zdm-fs-Walhk Xfer(QC): 5 Bed to/from Chair: 5 Car Transfer (QC): 5 Gait Training Does the Patient Walk?: Yes Gait (FIM): 5 Distance (FIM): 3=150 ft (175) Walk 10 feet (QC): 5 Walk 50 ft with 2 Turns(QC): 5 Walk 150 ft (QC): 5 Walking 10ft/uneven surface-QC: 5 Gait Level of Assist: 5 Gait Persons Needed: 1 Gait Assistive Device: FWW pt. requires assist for [place] and IV as well w/c to follow to carry some items. But pt. ambulates with SBA and a some cues for [facility] Wheelchair Training Does the Pt Use a Wheelchair?: Yes Wheelchair (FIM): 5 Wheelchair Distance: 3=150 ft Wheelchair Level of Assist: 5 (occas assist for brakes) Type of Wheelchair: Manual Exercises Supine Ex: Bridging, Ankle pumps (HC stretch R 3 x 20s), Quad Set, Rolling, Glut sets, Heel Slides, Short Arc Quads, Scooting, Straight leg raise (assist), Hip abd/add (assist) Supine Reps: 15 Seated Therapy Exercises: Sit to stand, Long arc quads, Hip flexion Seated Reps: 12 Treatments pt. in bathroom in w/c for washing face and brushing teeth as well as dentures etc. Assessment Current Status: Fair Progress pt. tearful most all of Rx this date , feels defeated, emotions this date interrupt PT Rx PT Short Term Goals Short Term Goals Time Frame: Apr 15, 2017 Transfers (B,C,W/C) (FIM): 3 (met) Gait (FIM): 1 (met) Gait Distance Comment: 10' Gait Level of Assist: 4 Gait Assistive Device: FWW Wheelchair Distance: 150'x2 PT [facility] Goals Maintenance Tech Goals PT [facility]sp Goals Time Frame: Apr 29, 2017 Transfers (B,C,W/C) (FIM): 5 Sit to Lying (QC): 6 Lying-Sitting on Side/Bed(QC): 6 Sit to Stand (QC): 3 Rollin Roll Left to Right (QC): 6 Chair/Kwx-ks-Qudpk Xfer(QC): 3 Car Transfer (QC): 3 Gait (FIM): 5 Distance: 300' Walk 10 feet (QC): 4 Walk 10ft-Uneven Surface(QC): 4 Walk 50ft with 2 Turns (QC): 88 Walk 150 ft (QC): 88 Gait Level of Assist: 5 Gait Assistive Device: FWW Stairs (FIM): 1 # of Steps: 1 1 Step (curb) (QC): 4 PT Plan Treatment/Plan Treatment Plan: Continue Plan of Care Treatment Plan: Bed Mobility, Concurrent Therapy, Education, Functional Activity Lidia, Functional Strength, Group Therapy, Gait, Safety, Therapeutic Exercise, Transfers Treatment Duration: Apr 29, 2017 Frequency: At least 5 of 7 days/Wk (IRF) Estimated Hrs Per Day: 1.5 hours per day Patient and/or Family Agrees t: Yes Safety Risks/Education Patient Education: Gait Training, Transfer Techniques, Correct Positioning, W/ C Management, Disease Process, Safety Issues Teaching Recipient: Patient Teaching Methods: Demonstration, Discussion Response to Teaching: Verbalize Understanding, Return Demonstration, Reinforcement Needed Time/GCodes Time In: 800 Time Out: 900 Total Billed Treatment Time: 60 Total Billed Treatment 1,EX20m,FA25m,GT15m G Codes Necessary: MOMO Brasher DRAFTING SUPERVISOR Apr 30, 2017 09:02
--- NOTE | 2017-04-30 09:30 | PM & R (SOAP) Progress Note ---
Subjective Time Seen by Provider: 09:00 Subjective/Events-last exam Patient was seen in his room this AM case discussed with Nursing Will d/c Marquez catheter in anticipation of discharge on Thursday05-04-17.Will clarify duration of IV antibiotics-Zosyn.Wound vac continues but will be changed to a different type upon discharge. DR chavez following Colostomy Education provided..Patient SBA for transfers. Objective Exam Last Set of Vital Signs Vital Signs Date Time Temp Pulse Resp B/P (MAP) Pulse Ox O2 Delivery O2 Flow Rate FiO2 04/30/17 05:07 98.3 75 18 146/80 (102) 96 Room Air Capillary Refill : I&O Intake and Output 04/30/17 00:00 Intake Total 1075 ml Output Total 1575 ml Balance -500 ml Intake Oral 975 ml IV Total 100 ml Output Urine Total 1350 ml Stool Total 225 ml General: Alert, Mild Distress HEENT: Atraumatic, PERRLA, EOMI, Mucous Memb Moist/Embarrass Neck: Supple, No JVD Lungs: Normal Air Movement Heart: Regular Rate Abdomen: Normal Bowel Sounds, Soft, No Tenderness, Other (colostomy functioning midline surgicaal sites as per dr chavez) Skin: Other (Sup. midline abd. -- 4.7 x 1.3 x 0.8 cm base 90% slough, 10 % granulation; Inf. midline abd. 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 Family patient training re colostomy care and pressure relief for sacral pressure sore Marquez catheter to be dcd.-will monitor for urinary retention. see orders Discharge set for Thursday05-04-17 to home with spouse with [facility] PCP listed as DR Jose Hinojosa Will clarify duration of LEISA Stauffer MD Apr 30, 2017 09:30
[2017-04-30] MEDS: DAKIN'S 1/4 STRENGTH (0.125%) 473 ML BTL TOP SCH ×2 (09:53→20:12)
[2017-04-30] MEDS: ZINC OXIDE 16% OINT (BUTT PASTE) 113 GM TUBE TOP PRN ×2 (12:09→20:13)
--- NOTE | 2017-04-30 12:58 | Occupational Ther Daily Note ---
OT Current Status-Daily Note Subjective Pt seen in room, up ini bed, agreeable to OT but reluctant to leave room due to IV running. No pain mentioned. Appearance Alert, cooperative Mental Status/Objective Functional [place] Measure 0=Not Assessed/NA 4=Minimal Assistance 1=Total Assistance 5=Supervision or Setup 2=Maximal Assistance 6=Modified [place] 3=Moderate Assistance 7=Complete [place] ADL-Treatment Functional [place] Measure 0=Not Assessed/NA 4=Minimal Assistance 1=Total Assistance 5=Supervision or Setup 2=Maximal Assistance 6=Modified [place] 3=Moderate Assistance 7=Complete IndependenceIRFPAI Quality Coding Scale 6 Independent with activity with or without an assistive device 5 Patient requires set up or clean up by helper. Patient completes activity by themselves 4 Supervision or touching assist (CGA). [place] provide cues , steadying assist 3 The helper provides less than half the effort to complete the activity 2 The helper provides more than half the effort to complete the activity 1 Dependent. The helper does all the effort to complete an activity 7 Patient refused to complete or attempt activity 9 The patient did not perform the activity before the current illness or injury 88 Not attempted due to Medical conditions or safety concerns Other Treatment Pt agreed to bilat UE exercise at bedside, using yellow theraband (gentle resistance). pt educ on 4 different exercises to strengthen arms to hep with transfers and ADLs. pt did 15-20 reps each exercise and then completed a second set of 15, with occasional skilled cues or physical assistance to do exercises correctly. pt encouraged to do these on his own in room and to take band home on discharge next week. Pt left up in bed, all needs met at end of tx. Education OT Patient Education: Exercise program Teaching Recipient: Patient Teaching Methods: Demonstration, Discussion Response to Teaching: Verbalize Understanding, Return Demonstration OT Short Term Goals Short Term Goals Time Frame: Apr 15, 2017 Grooming(FIM): 5 Lower Body Dressing(FIM): 4 Transfers (B,C,W/C) (FIM): 3 (met) 1=Demonstrate adherence to instructed precautions during ADL tasks. 2=Patient will verbalize/demonstrate understanding of assistive devices/ modifications for ADL. 3=Patient will improve strength/tolerance for activity to enable patient to perform ADL's. OT [facility] Goals Fuel Cell Battery Technician Goals Time Frame: May 01, 2017 Eating (FIM): 6 (met-04/27/2017) Eating (QC): 6 (met-04/27/2017) Groomin (met-04/27/2017) Oral Hygiene (QC): 6 (met-04/27/2017) Bathing(FIM): 6 (not met) Shower/Bathe Self (QC): 6 (not met) Upper Body Dressing(FIM): 6 (met-04/27/2017) Upper Body Dressing (QC): 6 (met-04/27/2017) Lower Body Dressing(FIM): 6 (not met) Lower Body Dressing (QC): 6 (not met) On/Off Footwear (QC): 6 (not met) Toileting(FIM): 6 (not met) Toileting Hygiene (QC): 6 (not met) Toilet/Commode Transfer(FIM): 6 (not met) Toilet/Commode Transfer (QC): 6 (not met) Shower Transfer(FIM): 6 (not met) Comprehension(FIM): 4 (MET) Expression (FIM): 5 (MET) Social Interaction(FIM): 4 (MET) Problem Solving(FIM): 4 (MET) Memory(FIM): 4 (MET) Additional Goals: 1-Demonstrate ADL Tasks, 2-Verbalize Understanding, 3- ImproveStrength/Lidia 1=Demonstrate adherence to instructed precautions during ADL tasks. 2=Patient will verbalize/demonstrate understanding of assistive devices/ modifications for ADL. 3=Patient will improve strength/tolerance for activity to enable patient to perform ADL's. OT Education/Plan Problem List/Assessment Pt would benefit from skilled OT to increase his independence in basic self care to allow him to safely return to his home to live with his and to decrease caregiver burden after multiple surgeries and medical conditions. Discharge Recommendations Plan/Recommendations: Continue POC Treatment Plan/Plan of Care Patient would benefit from OT for education, treatment and training to promote independence in ADL's, mobility, safety and/or upper extremity function for ADL' s. Plan of Care: ADL Retraining, Caregiver Training, Functional Mobility, Group Exercise/Act as Ind (education, exercise, funct activities, activ tolerance, funct mobility, sociallization), UE Funct Exercise/Act, UE Neuromus Re-Ed/Coord Treatment Duration: May 01, 2017 Frequency: At least 5 of 7 days/Wk (IRF) Estimated Hrs Per Day: 1.5 hours per day Agreement: Yes Rehab Potential: Fair Time/GCodes Start Time: 13:00 Stop Time: 13:30 Total Time Billed (hr/min): 30 Billed Treatment Time visit, 30 minutes exercise ZOE STAPLETON OT Apr 30, 2017 12:58
--- NOTE | 2017-04-30 13:04 | Physical Therapy Daily Note ---
PT Daily Note-Current Subjective Patient is in bed and agrees to bed exercises. Pain Numeric Pain Scale: 5-Moderate Pain Location: Posterior Location Body Site: Sacrum Pain Description: Burning Mental Status Patient Orientation: Normal For Age Attachments: IV wound vac Transfers Functional [place] Measure 0=Not Assessed/NA 4=Minimal Assistance 1=Total Assistance 5=Supervision or Setup 2=Maximal Assistance 6=Modified [place] 3=Moderate Assistance 7=Complete IndependenceIRFPAI Quality Coding Scale 6 Independent with activity with or without an assistive device 5 Patient requires set up or clean up by helper. Patient completes activity by themselves 4 Supervision or touching assist (CGA). [place] provide cues , steadying assist 3 The helper provides less than half the effort to complete the activity 2 The helper provides more than half the effort to complete the activity 1 Dependent. The helper does all the effort to complete an activity 7 Patient refused to complete or attempt activity 9 The patient did not perform the activity before the current illness or injury 88 Not attempted due to Medical conditions or safety concerns Exercises Supine Ex: Ankle pumps, Quad Set, Heel Slides, Short Arc Quads, Straight leg raise, Hip abd/add Supine Reps: 15 (2 sets with PROM right ankle all planes) Assessment Patient requires time to complete exercises. He reports he is "gloomy". RN is aware. PT Short Term Goals Short Term Goals Time Frame: Apr 15, 2017 Transfers (B,C,W/C) (FIM): 3 (met) Gait (FIM): 1 (met) Gait Distance Comment: 10' Gait Level of Assist: 4 Gait Assistive Device: FWW Wheelchair Distance: 150'x2 PT Half-Way Goals Half-Way Goals PT Opto Mechanical Technician Goals Time Frame: Apr 29, 2017 Transfers (B,C,W/C) (FIM): 5 Sit to Lying (QC): 6 Lying-Sitting on Side/Bed(QC): 6 Sit to Stand (QC): 3 Rollin Roll Left to Right (QC): 6 Chair/Epu-da-Ccdip Xfer(QC): 3 Car Transfer (QC): 3 Gait (FIM): 5 Distance: 300' Walk 10 feet (QC): 4 Walk 10ft-Uneven Surface(QC): 4 Walk 50ft with 2 Turns (QC): 88 Walk 150 ft (QC): 88 Gait Level of Assist: 5 Gait Assistive Device: FWW Stairs (FIM): 1 # of Steps: 1 1 Step (curb) (QC): 4 PT Plan Treatment/Plan Treatment Plan: Continue Plan of Care Treatment Plan: Bed Mobility, Concurrent Therapy, Education, Functional Activity Lidia, Functional Strength, Group Therapy, Gait, Safety, Therapeutic Exercise, Transfers Treatment Duration: Apr 29, 2017 Frequency: At least 5 of 7 days/Wk (IRF) Estimated Hrs Per Day: 1.5 hours per day Patient and/or Family Agrees t: Yes Time/GCodes Time In: 1229 Time Out: 1300 Total Billed Treatment Time: 31 Total Billed Treatment 1 visit EX x 2 31 min CHRISTIANE GRANADOS PT Apr 30, 2017 13:04
[2017-04-30] MEDS: fentaNYL PATCH 100 MCG (DURAGESIC) TD SCH (14:12)
[2017-04-30] MEDS: FENTANYL PATCH REMOVAL TP SCH (14:13)
--- NOTE | 2017-04-30 15:19 | Occupational Ther Daily Note ---
OT Current Status-Daily Note Subjective Pt seen in room, up in bed, agreeable to OT. No pain mentioned. Appearance Alert, cooperative Mental Status/Objective Functional [place] Measure 0=Not Assessed/NA 4=Minimal Assistance 1=Total Assistance 5=Supervision or Setup 2=Maximal Assistance 6=Modified [place] 3=Moderate Assistance 7=Complete [place] ADL-Treatment Pt declined ADLs but was agreeable to OT. Supine to sit EOB without help. Reached for and put on shirt without help. Functional [place] Measure 0=Not Assessed/NA 4=Minimal Assistance 1=Total Assistance 5=Supervision or Setup 2=Maximal Assistance 6=Modified [place] 3=Moderate Assistance 7=Complete IndependenceIRFPAI Quality Coding Scale 6 Independent with activity with or without an assistive device 5 Patient requires set up or clean up by helper. Patient completes activity by themselves 4 Supervision or touching assist (CGA). [place] provide cues , steadying assist 3 The helper provides less than half the effort to complete the activity 2 The helper provides more than half the effort to complete the activity 1 Dependent. The helper does all the effort to complete an activity 7 Patient refused to complete or attempt activity 9 The patient did not perform the activity before the current illness or injury 88 Not attempted due to Medical conditions or safety concerns Other Treatment Transferred SBA from bed to w/c, limited in part to multiple tubings. Pt propelled himself to gym. In gym, pt did bilat UE exercises to help strengthen arms for ADLs and transfers. He did 16 minutes on arm bike, set at 30W resistance for 5 minutes and 25W resistance for 11 minutes, taking only occasional brief breaks. He also did graded clothespins and arc activity with 1/ 2# weights on each arm, all to strengthen arms for independent transfers. Pt propelled himself back to his room and transferred into bed with SBA. Wound vac plugged in. Nursing present to remove Marquez, all needs met. Education OT Patient Education: Progress toward Goal/Update tx plan, Purpose of tx/ functional activities Teaching Recipient: Patient Teaching Methods: Demonstration, Discussion Response to Teaching: Verbalize Understanding, Return Demonstration OT Short Term Goals Short Term Goals Time Frame: Apr 15, 2017 Grooming(FIM): 5 Lower Body Dressing(FIM): 4 Transfers (B,C,W/C) (FIM): 3 (met) 1=Demonstrate adherence to instructed precautions during ADL tasks. 2=Patient will verbalize/demonstrate understanding of assistive devices/ modifications for ADL. 3=Patient will improve strength/tolerance for activity to enable patient to perform ADL's. OT Elevator Constructor Goals Mcfp Goals Time Frame: May 01, 2017 Eating (FIM): 6 (met-04/27/2017) Eating (QC): 6 (met-04/27/2017) Groomin (met-04/27/2017) Oral Hygiene (QC): 6 (met-04/27/2017) Bathing(FIM): 6 (not met) Shower/Bathe Self (QC): 6 (not met) Upper Body Dressing(FIM): 6 (met-04/27/2017) Upper Body Dressing (QC): 6 (met-04/27/2017) Lower Body Dressing(FIM): 6 (not met) Lower Body Dressing (QC): 6 (not met) On/Off Footwear (QC): 6 (not met) Toileting(FIM): 6 (not met) Toileting Hygiene (QC): 6 (not met) Toilet/Commode Transfer(FIM): 6 (not met) Toilet/Commode Transfer (QC): 6 (not met) Shower Transfer(FIM): 6 (not met) Comprehension(FIM): 4 (MET) Expression (FIM): 5 (MET) Social Interaction(FIM): 4 (MET) Problem Solving(FIM): 4 (MET) Memory(FIM): 4 (MET) Additional Goals: 1-Demonstrate ADL Tasks, 2-Verbalize Understanding, 3- ImproveStrength/Lidia 1=Demonstrate adherence to instructed precautions during ADL tasks. 2=Patient will verbalize/demonstrate understanding of assistive devices/ modifications for ADL. 3=Patient will improve strength/tolerance for activity to enable patient to perform ADL's. OT Education/Plan Problem List/Assessment Pt would benefit from skilled OT to increase his independence in basic self care to allow him to safely return to his home to live with his and to decrease caregiver burden after multiple surgeries and medical conditions. Discharge Recommendations Plan/Recommendations: Continue POC Treatment Plan/Plan of Care Patient would benefit from OT for education, treatment and training to promote independence in ADL's, mobility, safety and/or upper extremity function for ADL' s. Plan of Care: ADL Retraining, Caregiver Training, Functional Mobility, Group Exercise/Act as Ind (education, exercise, funct activities, activ tolerance, funct mobility, sociallization), UE Funct Exercise/Act, UE Neuromus Re-Ed/Coord Treatment Duration: May 01, 2017 Frequency: At least 5 of 7 days/Wk (IRF) Estimated Hrs Per Day: 1.5 hours per day Agreement: Yes Rehab Potential: Fair Time/GCodes Start Time: 13:00 Stop Time: 13:30 Total Time Billed (hr/min): 30 Billed Treatment Time visit, 30 minutes exercise ZOE STAPLETON OT Apr 30, 2017 15:19
--- NOTE | 2017-04-30 15:47 | Occ Therapy Rehab Re-Cert ---
OT Re-Certification Form Plan of Care: ADL Retraining, Caregiver Training, Functional Mobility, Group Exercise/Act as Ind (education, exercise, funct activities, activ tolerance, funct mobility, sociallization), UE Funct Exercise/Act, UE Neuromus Re-Ed/Coord Pt has made progress toward goals but is not quite ready for discharge. Will extend tx plan for 1 week, continuing same goals and interventions. Treatment Duration: May 08, 2017 Frequency: At least 5 of 7 days/Wk (IRF) Estimated Hrs Per Day: 1.5 hours per day Agreement: Yes Rehab Potential: Good OT Short Term Goals Short Term Goals Time Frame: Apr 15, 2017 Grooming(FIM): 5 Lower Body Dressing(FIM): 4 Transfers (B,C,W/C) (FIM): 3 (met) 1=Demonstrate adherence to instructed precautions during ADL tasks. 2=Patient will verbalize/demonstrate understanding of assistive devices/ modifications for ADL. 3=Patient will improve strength/tolerance for activity to enable patient to perform ADL's. OT Slot Attendant Goals Slot Attendant Goals Time Frame: May 01, 2017 Eating (FIM): 6 (met-04/27/2017) Grooming(FIM): 6 (met-04/27/2017) Bathing(FIM): 6 (not met) Upper Body Dressing(FIM): 6 (met-04/27/2017) Lower Body Dressing(FIM): 6 (not met) Toileting(FIM): 6 (not met) Toilet/Commode Transfer(FIM): 6 (not met) Shower Transfer(FIM): 6 (not met) Comprehension(FIM): 4 (MET) Expression (FIM): 5 (MET) Social Interaction(FIM): 4 (MET) Problem Solving(FIM): 4 (MET) Memory(FIM): 4 (MET) Additional Goals: 1-Demonstrate ADL Tasks, 2-Verbalize Understanding, 3- ImproveStrength/Lidia 1=Demonstrate adherence to instructed precautions during ADL tasks. 2=Patient will verbalize/demonstrate understanding of assistive devices/ modifications for ADL. 3=Patient will improve strength/tolerance for activity to enable patient to perform ADL's. ZOE STAPLETON OT Apr 30, 2017 15:47
[2017-04-30 17:16] VITALS: BP 136/79
[2017-04-30] MEDS: MIRTAZAPINE 15 MG (REMERON) TAB PO SCH (20:06)
[2017-05-01] MEDS: PIPERACILLIN SODIUM/TAZOBACTAM 4.5 GM in NS (IVPB) 100 ML IV SCH ×3 (04:29→20:15)
[2017-05-01 04:55] VITALS: BP 131/74
[2017-05-01] MEDS: MULTIVIT W/MINERALS TAB (THERAGRAN M) PO SCH (05:57)
[2017-05-01] MEDS: PANTOPRAZOLE 40 MG (PROTONIX) TAB PO SCH (05:57)
[2017-05-01] MEDS: IRON POLYSAC 150 MG CAP (NIFEREX) PO SCH ×2 (05:57→14:52)
[2017-05-01] MEDS: MELOXICAM 7.5 MG (MOBIC) TABLET PO SCH (08:36)
[2017-05-01] MEDS: MAGNESIUM OXIDE (MAG-OX)400 MG TAB PO SCH ×2 (08:37→14:52)
[2017-05-01] MEDS: DIVALPROEX 250 MG DELAYED RELEASE (DEPAKOTE) TAB PO SCH ×2 (08:37→20:15)
[2017-05-01] MEDS: NICOTINE PATCH REMOVAL TP SCH (08:37)
[2017-05-01] MEDS: NICOTINE 14 MG (NICODERM) PATCH TD SCH (08:37)
[2017-05-01] MEDS: DAKIN'S 1/4 STRENGTH (0.125%) 473 ML BTL TOP SCH ×2 (08:39→20:17)
--- NOTE | 2017-05-01 08:44 | PM & R (SOAP) Progress Note ---
Subjective Time Seen by Provider: 07:40 Subjective/Events-last exam Patient was seen in his room this AM reports pain 5/10 in sacrum from Sacral pressure sore.Patient SBA for transfers Marquez out and patient voiding.Wound vac continues Bowel Colostomy. Objective Exam Last Set of Vital Signs Vital Signs Date Time Temp Pulse Resp B/P (MAP) Pulse Ox O2 Delivery O2 Flow Rate FiO2 05/01/17 04:55 99.0 79 18 131/74 (93) 96 Room Air Capillary Refill : I&O Intake and Output 05/01/17 00:00 Intake Total 1360 ml Output Total 1200 ml Balance 160 ml Intake Oral 1060 ml IV Total 300 ml Output Urine Total 1050 ml Post Void Residual 50 ml Stool Total 100 ml General: Alert, Mild Distress HEENT: Atraumatic, PERRLA, EOMI, Mucous Memb Moist/[place]: Supple, No JVD Lungs: Normal Air Movement Heart: Regular Rate Abdomen: Normal Bowel Sounds, Soft, No Tenderness, Other (colostomy functioning midline surgicaal sites as per dr chavez) Skin: Other (Sup. midline abd. -- 4.7 x 1.3 x 0.8 cm base 90% slough, 10 % granulation; Inf. midline abd. 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 Family patient training re colostomy care and pressure relief for sacral pressure sore Marquez catheter out- monitor for urinary retention. Discharge set for Thursday05-04-17 to home with spouse with [facility] PCP listed as DR Jose Hinojosa Will clarify duration of Zosyn Current meds reviewed Team Conference [facility] 04-29-17-See report for full functional update and POC- Patient has a supportive who is a [employer] BUSINESS ANALYST. Course of Zosyn to be completed tomorrow 05-02-17 LEISA GEORGE MD May 01, 2017 08:44
[2017-05-01] MEDS ORDERED: NICO-587 TD (08:55)
[2017-05-01] MEDS ORDERED: ZINC28PA TOP (08:55)
[2017-05-01] MEDS ORDERED: MIRT15TA8 PO (08:55)
[2017-05-01] MEDS ORDERED: IRON150C3 PO (08:55)
[2017-05-01] MEDS ORDERED: FENT1PAT11 TD (08:55)
--- NOTE | 2017-05-01 10:46 | Occupational Ther Daily Note ---
OT Current Status-Daily Note Subjective Pt alert, sitting in w/c. Pt had gotten catheter out and is in a very good mood. Pt agreed to therapy. Did not c/o pain at this time. Mental Status/Objective Patient Orientation: Person, Place, Time, Situation Functional [place] Measure 0=Not Assessed/NA 4=Minimal Assistance 1=Total Assistance 5=Supervision or Setup 2=Maximal Assistance 6=Modified [place] 3=Moderate Assistance 7=Complete [place] ADL-Treatment Functional [place] Measure 0=Not Assessed/NA 4=Minimal Assistance 1=Total Assistance 5=Supervision or Setup 2=Maximal Assistance 6=Modified [place] 3=Moderate Assistance 7=Complete IndependenceIRFPAI Quality Coding Scale 6 Independent with activity with or without an assistive device 5 Patient requires set up or clean up by helper. Patient completes activity by themselves 4 Supervision or touching assist (CGA). [place] provide cues , steadying assist 3 The helper provides less than half the effort to complete the activity 2 The helper provides more than half the effort to complete the activity 1 Dependent. The helper does all the effort to complete an activity 7 Patient refused to complete or attempt activity 9 The patient did not perform the activity before the current illness or injury 88 Not attempted due to Medical conditions or safety concerns Grooming (FIM): 6 (Pt completes grooming in w/c sitting at sink.) Oral Hygiene (QC): 6 Bathing (FIM): 5 (Pt requires assist to cover wound vac site. Pt is able to complete all bathing/drying by self using shower bench, grabbars, hand held shower and long handle sponge.) Bathing Location: L Arm, R Arm, L Upper Leg, R Upper Leg, L Lower Leg ( including foot), R Lower Leg (including foot), Chest, Abdomen, Buttocks, Perineal Area Shower/Bathe Self (QC): 5 Upper Body (FIM): 6 (Retrieves clothing with w/c then is able to don/doff by self.) Upper Body Dressing (QC): 6 Lower Body Dressing (FIM): 4 (Retrieves own clothing with w/c. Assist to position clothing if needed to initiate over feet. Then is able to hike over hips with SBA using FWW. Pt requires assist to don socks, doffs by self.) Lower Body Dressing (QC): 3 On/Off Footwear (QC): 3 Transfers (B, C, W/C) (FIM): 5 (SBA for stand pivot transfer using FWW.) Shower Transfer(FIM): 5 (SBA using w/c, grabbar and shower bench.) Other Treatment Pt maneuvers w/c to and from gym. Pt completed arm bike 15 min at 25 vasquez resistance to increase strength and activity tolerance for daily functional tasks. Pt then completed resistive pegs with 1# wt attached to wrists to increase strength and fine motor skills for dressing. After therapy, pt sitting in w/c in room. Call light/phone in reach. All needs met in room. OT Short Term Goals Short Term Goals Time Frame: Apr 15, 2017 Grooming(FIM): 5 Lower Body Dressing(FIM): 4 Transfers (B,C,W/C) (FIM): 3 (met) 1=Demonstrate adherence to instructed precautions during ADL tasks. 2=Patient will verbalize/demonstrate understanding of assistive devices/ modifications for ADL. 3=Patient will improve strength/tolerance for activity to enable patient to perform ADL's. OT Senior Living Goals Senior Living Goals Time Frame: May 01, 2017 Eating (FIM): 6 (met-04/27/2017) Eating (QC): 6 (met-04/27/2017) Groomin (met-04/27/2017) Oral Hygiene (QC): 6 (met-04/27/2017) Bathing(FIM): 6 (not met) Shower/Bathe Self (QC): 6 (not met) Upper Body Dressing(FIM): 6 (met-04/27/2017) Upper Body Dressing (QC): 6 (met-04/27/2017) Lower Body Dressing(FIM): 6 (not met) Lower Body Dressing (QC): 6 (not met) On/Off Footwear (QC): 6 (not met) Toileting(FIM): 6 (not met) Toileting Hygiene (QC): 6 (not met) Toilet/Commode Transfer(FIM): 6 (not met) Toilet/Commode Transfer (QC): 6 (not met) Shower Transfer(FIM): 6 (not met) Comprehension(FIM): 4 (MET) Expression (FIM): 5 (MET) Social Interaction(FIM): 4 (MET) Problem Solving(FIM): 4 (MET) Memory(FIM): 4 (MET) Additional Goals: 1-Demonstrate ADL Tasks, 2-Verbalize Understanding, 3- ImproveStrength/Lidia 1=Demonstrate adherence to instructed precautions during ADL tasks. 2=Patient will verbalize/demonstrate understanding of assistive devices/ modifications for ADL. 3=Patient will improve strength/tolerance for activity to enable patient to perform ADL's. OT Education/Plan Problem List/Assessment Pt would benefit from skilled OT to increase his independence in basic self care to allow him to safely return to his home to live with his and to decrease caregiver burden after multiple surgeries and medical conditions. Discharge Recommendations Plan/Recommendations: Continue POC Treatment Plan/Plan of Care Patient would benefit from OT for education, treatment and training to promote independence in ADL's, mobility, safety and/or upper extremity function for ADL' s. Plan of Care: ADL Retraining, Caregiver Training, Functional Mobility, Group Exercise/Act as Ind (education, exercise, funct activities, activ tolerance, funct mobility, sociallization), UE Funct Exercise/Act, UE Neuromus Re-Ed/Coord Treatment Duration: May 01, 2017 Frequency: At least 5 of 7 days/Wk (IRF) Estimated Hrs Per Day: 1.5 hours per day Agreement: Yes Rehab Potential: Good Time/GCodes Start Time: 09:00 Stop Time: 10:30 Total Time Billed (hr/min): 90 Billed Treatment Time 1 visit-ADL 4 (60 min) EX 2 (30 min) LUIS ANTONIO FOWLER May 01, 2017 10:46
[2017-05-01] MEDS: fentaNYL INJECTION 100 MCG/2 ML AMP IVP PRN (12:06)
[2017-05-01] MEDS: HYDROcodone/APAP 10 MG/325 MG (LORTAB) TAB PO PRN ×3 (12:10→20:30)
--- NOTE | 2017-05-01 12:24 | Physical Therapy Daily Note ---
PT Daily Note-Current Subjective Pt sitting up in [facility] upon arrival. Pt & PHYSICIAN SCIENTIST put on pt's AFO on RLE. Pt agrees to PT. Pain Numeric Pain Scale: 4 Location Body Site: Sacrum Pain Description: Ache Mental Status Patient Orientation: Person, Place, Time, Situation Attachments: Other-See Comments (Wound Vac) Transfers Functional [place] Measure 0=Not Assessed/NA 4=Minimal Assistance 1=Total Assistance 5=Supervision or Setup 2=Maximal Assistance 6=Modified [place] 3=Moderate Assistance 7=Complete IndependenceIRFPAI Quality Coding Scale 6 Independent with activity with or without an assistive device 5 Patient requires set up or clean up by helper. Patient completes activity by themselves 4 Supervision or touching assist (CGA). [place] provide cues , steadying assist 3 The helper provides less than half the effort to complete the activity 2 The helper provides more than half the effort to complete the activity 1 Dependent. The helper does all the effort to complete an activity 7 Patient refused to complete or attempt activity 9 The patient did not perform the activity before the current illness or injury 88 Not attempted due to Medical conditions or safety concerns Scootin Sit to/from Stand: 5 Sit to Stand (QC): 5 Weight Bearing Right Lower Extremity: Right Full Weight Bearing Left Lower Extremity: Left Full Weight Bearing Gait Training Does the Patient Walk?: Yes Distance (FIM): 3=150 ft Distance: 250' Walk 10 feet (QC): 4 Walk 50 ft with 2 Turns(QC): 4 Walk 150 ft (QC): 4 Gait Level of Assist: 4 Gait Persons Needed: 1 Gait Assistive Device: FWW Pt walks with normalized gait although needs occasional reminders to stay closer to FWW. Pt wanted to try the lee walker but quickly found out it was more than he could do and returned to FWW. Wheelchair Training Does the Pt Use a Wheelchair?: Yes Wheelchair Distance: 3=150 ft Distance: 150' Wheelchair Level of Assist: 5 Wheel 50 ft with 2 turns (QC): 5 Wheel 150 ft (QC): 5 Type of Wheelchair: Manual Exercises Seated Therapy Exercises: Ankle pumps, Long arc quads, Hip flexion, Kicking activity Seated Reps: 20 Treatments Pt transfers from EOB to [facility] at A. Pt propels [facility] into [facility]. Pt ambulates in hallway using FWW at [facility] with [facility] following w/Wound Vac and attempts to try a Lee Walker although pt decides he is not ready for it at this time. Pt continues ambulation in hallway. Pt returns to room at end of tx to use Urinal and rest at edge of bed. Pt has all needs met at end of tx. Assessment Current Status: Good Progress Pt continues to get stronger and activity tolerance has improved although still not strong enough to walk w/o FWW. PT Short Term Goals Short Term Goals Time Frame: Apr 15, 2017 Transfers (B,C,W/C) (FIM): 3 (met) Gait (FIM): 1 (met) Gait Distance Comment: 10' Gait Level of Assist: 4 Gait Assistive Device: FWW Wheelchair Distance: 150'x2 PT Detention Goals Double Back Operator Goals PT Double Back Operator Goals Time Frame: Apr 29, 2017 Transfers (B,C,W/C) (FIM): 5 Sit to Lying (QC): 6 Lying-Sitting on Side/Bed(QC): 6 Sit to Stand (QC): 3 Rollin Roll Left to Right (QC): 6 Chair/Bun-bf-Npofv Xfer(QC): 3 Car Transfer (QC): 3 Gait (FIM): 5 Distance: 300' Walk 10 feet (QC): 4 Walk 10ft-Uneven Surface(QC): 4 Walk 50ft with 2 Turns (QC): 88 Walk 150 ft (QC): 88 Gait Level of Assist: 5 Gait Assistive Device: FWW Stairs (FIM): 1 # of Steps: 1 1 Step (curb) (QC): 4 PT Plan Problem List Problem List: Activity Tolerance, Gait Treatment/Plan Treatment Plan: Continue Plan of Care Treatment Plan: Bed Mobility, Concurrent Therapy, Education, Functional Activity Lidia, Functional Strength, Group Therapy, Gait, Safety, Therapeutic Exercise, Transfers Treatment Duration: Apr 29, 2017 Frequency: At least 5 of 7 days/Wk (IRF) Estimated Hrs Per Day: 1.5 hours per day Patient and/or Family Agrees t: Yes Safety Risks/Education Patient Education: Gait Training, Correct Positioning, Safety Issues Teaching Recipient: Patient Teaching Methods: Discussion Response to Teaching: Verbalize Understanding Time/GCodes Time In: 1115 Time Out: 1215 Total Billed Treatment Time: 60 Total Billed Treatment 1, GT x2 (30m), FA (15m) & EX (15m) TRENELSON CHAPA PTA May 01, 2017 12:24
[2017-05-01] MEDS: IBUPROFEN TABLET 200 MG TAB PO PRN (14:52)
--- NOTE | 2017-05-01 15:06 | Physical Therapy Daily Note ---
PT Daily Note-Current Subjective Pt sitting at EOB upon arrival. Pt agrees to PT. Pain Numeric Pain Scale: 3 Location Body Site: Abdomen Pain Description: Ache Mental Status Patient Orientation: Person, Place, Time, Situation Attachments: Other-See Comments (Wound Vac), IV Transfers Functional [place] Measure 0=Not Assessed/NA 4=Minimal Assistance 1=Total Assistance 5=Supervision or Setup 2=Maximal Assistance 6=Modified [place] 3=Moderate Assistance 7=Complete IndependenceIRFPAI Quality Coding Scale 6 Independent with activity with or without an assistive device 5 Patient requires set up or clean up by helper. Patient completes activity by themselves 4 Supervision or touching assist (CGA). [place] provide cues , steadying assist 3 The helper provides less than half the effort to complete the activity 2 The helper provides more than half the effort to complete the activity 1 Dependent. The helper does all the effort to complete an activity 7 Patient refused to complete or attempt activity 9 The patient did not perform the activity before the current illness or injury 88 Not attempted due to Medical conditions or safety concerns Sc[place]in Sit to/from Stand: 5 Sit to Stand (QC): 5 Chair/Aqu-at-Tesbf Xfer(QC): 5 Bed to/from Chair: 5 Weight Bearing Right Lower Extremity: Right Full Weight Bearing Left Lower Extremity: Left Full Weight Bearing Wheelchair Training Does the Pt Use a Wheelchair?: Yes Wheelchair Distance: 3=150 ft Distance: 150' Wheelchair Level of Assist: 5 Wheel 50 ft with 2 turns (QC): 5 Wheel 150 ft (QC): 5 Type of Wheelchair: Manual Exercises Seated Therapy Exercises: Ankle pumps, Long arc quads, Hip flexion, Kicking activity, Hip abd/add Seated Reps: 20 Treatments Pt transfers from EOB to sitting in [facility] with SPT at [facility]. Pt propels [facility] in Therapy Commons. Pt completes Seated Ex with a couple short breaks. Pt returns to room to rest at EOB at end of tx with all needs met. Assessment Current Status: Good Progress Pt has improved with strength & activity tolerance and is excited to return home on Thursday. PT Short Term Goals Short Term Goals Time Frame: Apr 15, 2017 Transfers (B,C,W/C) (FIM): 3 (met) Gait (FIM): 1 (met) Gait Distance Comment: 10' Gait Level of Assist: 4 Gait Assistive Device: FWW Wheelchair Distance: 150' PT Shelter Goals Knitter Wire Mesh Goals PT Knitter Wire Mesh Goals Time Frame: Apr 29, 2017 Transfers (B,C,W/C) (FIM): 5 Sit to Lying (QC): 6 Lying-Sitting on Side/Bed(QC): 6 Sit to Stand (QC): 3 Rollin Roll Left to Right (QC): 6 Chair/Trv-ee-Acklj Xfer(QC): 3 Car Transfer (QC): 3 Gait (FIM): 5 Distance: 300' Walk 10 feet (QC): 4 Walk 10ft-Uneven Surface(QC): 4 Walk 50ft with 2 Turns (QC): 88 Walk 150 ft (QC): 88 Gait Level of Assist: 5 Gait Assistive Device: FWW Stairs (FIM): 1 # of Steps: 1 1 Step (curb) (QC): 4 PT Plan Problem List Problem List: Activity Tolerance, Gait Treatment/Plan Treatment Plan: Continue Plan of Care Treatment Plan: Bed Mobility, Concurrent Therapy, Education, Functional Activity Lidia, Functional Strength, Group Therapy, Gait, Safety, Therapeutic Exercise, Transfers Treatment Duration: Apr 29, 2017 Frequency: At least 5 of 7 days/Wk (IRF) Estimated Hrs Per Day: 1.5 hours per day Patient and/or Family Agrees t: Yes Safety Risks/Education Patient Education: Correct Positioning, Safety Issues Teaching Recipient: Patient Teaching Methods: Discussion Response to Teaching: Verbalize Understanding Time/GCodes Time In: 1400 Time Out: 1430 Total Billed Treatment Time: 30 Total Billed Treatment 1, EX x2 (30m) NELSON HUNTER PTA May 01, 2017 15:06
[2017-05-01 18:03] VITALS: BP 114/67
[2017-05-01] MEDS: MIRTAZAPINE 15 MG (REMERON) TAB PO SCH (20:15)
[2017-05-02] MEDS: PIPERACILLIN SODIUM/TAZOBACTAM 4.5 GM in NS (IVPB) 100 ML IV SCH ×2 (04:25→12:50)
[2017-05-02 06:17] VITALS: BP 124/64
[2017-05-02] MEDS: PANTOPRAZOLE 40 MG (PROTONIX) TAB PO SCH (06:36)
[2017-05-02] MEDS: IRON POLYSAC 150 MG CAP (NIFEREX) PO SCH ×2 (06:36→17:04)
[2017-05-02] MEDS: MULTIVIT W/MINERALS TAB (THERAGRAN M) PO SCH (06:36)
[2017-05-02] MEDS: HYDROcodone/APAP 10 MG/325 MG (LORTAB) TAB PO PRN ×4 (06:37→20:55)
[2017-05-02] MEDS: DIVALPROEX 250 MG DELAYED RELEASE (DEPAKOTE) TAB PO SCH ×2 (08:42→20:51)
[2017-05-02] MEDS: MELOXICAM 7.5 MG (MOBIC) TABLET PO SCH (08:42)
[2017-05-02] MEDS: MAGNESIUM OXIDE (MAG-OX)400 MG TAB PO SCH ×2 (08:42→17:04)
[2017-05-02] MEDS: NICOTINE 14 MG (NICODERM) PATCH TD SCH ×2 (08:42→08:46)
[2017-05-02] MEDS: NICOTINE PATCH REMOVAL TP SCH ×2 (08:43→08:46)
[2017-05-02] MEDS: DAKIN'S 1/4 STRENGTH (0.125%) 473 ML BTL TOP SCH ×2 (08:43→20:52)
--- NOTE | 2017-05-02 10:30 | Physical Therapy Daily Note ---
PT Daily Note-Current Subjective Pt. and present for Rx. Both state pt. is going home Mon. Pain Numeric Pain Scale: 0-No Pain Mental Status Patient Orientation: Normal For Age Attachments: Other-See Comments ([place]) Transfers Functional [place] Measure 0=Not Assessed/NA 4=Minimal Assistance 1=Total Assistance 5=Supervision or Setup 2=Maximal Assistance 6=Modified [place] 3=Moderate Assistance 7=Complete IndependenceIRFPAI Quality Coding Scale 6 Independent with activity with or without an assistive device 5 Patient requires set up or clean up by helper. Patient completes activity by themselves 4 Supervision or touching assist (CGA). [place] provide cues , steadying assist 3 The helper provides less than half the effort to complete the activity 2 The helper provides more than half the effort to complete the activity 1 Dependent. The helper does all the effort to complete an activity 7 Patient refused to complete or attempt activity 9 The patient did not perform the activity before the current illness or injury 88 Not attempted due to Medical conditions or safety concerns Transfers (B, C, W/C) (FIM): 6 Scootin Rollin Supine to/from Sit: 6 Sit to/from Stand: 6 Weight Bearing Right Lower Extremity: Right Full Weight Bearing Left Lower Extremity: Left Full Weight Bearing Gait Training Does the Patient Walk?: Yes Gait (FIM): 5 Distance (FIM): 3=150 ft (200x2,150) Gait Level of Assist: 5 Gait Persons Needed: 1 Gait Assistive Device: FWW w/c f/u Wheelchair Training Does the Pt Use a Wheelchair?: Yes Wheelchair (FIM): 6 Wheelchair Level of Assist: 6 Type of Wheelchair: Manual Exercises Standing: Hip Abduction, Hamstring curls, Marching, Mini squats Standing Reps: 12 Treatments attempted Nustep, pt. states it really hurts his coccyx Assessment Current Status: Good Progress PT Short Term Goals Short Term Goals Time Frame: Apr 15, 2017 Transfers (B,C,W/C) (FIM): 3 (met) Gait (FIM): 1 (met) Gait Distance Comment: 10' Gait Level of Assist: 4 Gait Assistive Device: FWW Wheelchair Distance: 150' PT Detention Goals Detention Goals PT Panelboard Assembler Goals Time Frame: Apr 29, 2017 Transfers (B,C,W/C) (FIM): 5 Sit to Lying (QC): 6 Lying-Sitting on Side/Bed(QC): 6 Sit to Stand (QC): 3 Rollin Roll Left to Right (QC): 6 Chair/Fjg-oc-Uvzui Xfer(QC): 3 Car Transfer (QC): 3 Gait (FIM): 5 Distance: 300' Walk 10 feet (QC): 4 Walk 10ft-Uneven Surface(QC): 4 Walk 50ft with 2 Turns (QC): 88 Walk 150 ft (QC): 88 Gait Level of Assist: 5 Gait Assistive Device: FWW Stairs (FIM): 1 # of Steps: 1 1 Step (curb) (QC): 4 PT Plan Treatment/Plan Treatment Plan: Continue Plan of Care Treatment Plan: Bed Mobility, Concurrent Therapy, Education, Functional Activity Lidia, Functional Strength, Group Therapy, Gait, Safety, Therapeutic Exercise, Transfers Treatment Duration: Apr 29, 2017 Frequency: At least 5 of 7 days/Wk (IRF) Estimated Hrs Per Day: 1.5 hours per day Patient and/or Family Agrees t: Yes Safety Risks/Education Patient Education: Gait Training, Transfer Techniques Teaching Recipient: Patient Teaching Methods: Demonstration, Discussion Response to Teaching: Verbalize Understanding, Return Demonstration, Reinforcement Needed Time/GCodes Time In: 955 Time Out: 1020 Total Billed Treatment Time: 25 Total Billed Treatment 1,EX10,GT15 G Codes Necessary: MOMO Brasher FOXING CLOSER May 02, 2017 10:30
[2017-05-02 18:10] VITALS: BP 136/76
[2017-05-02] MEDS: MIRTAZAPINE 15 MG (REMERON) TAB PO SCH (20:51)
[2017-05-03] MEDS: HYDROcodone/APAP 10 MG/325 MG (LORTAB) TAB PO PRN ×5 (01:32→22:10)
[2017-05-03] MEDS: NS IV 1000 ML 1,000 ML IV PRN (03:10)
[2017-05-03 05:56] VITALS: BP 127/70
[2017-05-03] MEDS: IRON POLYSAC 150 MG CAP (NIFEREX) PO SCH ×2 (06:33→17:14)
[2017-05-03] MEDS: PANTOPRAZOLE 40 MG (PROTONIX) TAB PO SCH (06:33)
[2017-05-03] MEDS: MULTIVIT W/MINERALS TAB (THERAGRAN M) PO SCH (06:33)
[2017-05-03] MEDS: NICOTINE PATCH REMOVAL TP SCH (08:01)
[2017-05-03] MEDS: NICOTINE 14 MG (NICODERM) PATCH TD SCH (08:02)
[2017-05-03] MEDS: MAGNESIUM OXIDE (MAG-OX)400 MG TAB PO SCH ×2 (08:44→17:14)
[2017-05-03] MEDS: DIVALPROEX 250 MG DELAYED RELEASE (DEPAKOTE) TAB PO SCH ×2 (08:44→20:07)
[2017-05-03] MEDS: MELOXICAM 7.5 MG (MOBIC) TABLET PO SCH (08:44)
[2017-05-03] MEDS: DAKIN'S 1/4 STRENGTH (0.125%) 473 ML BTL TOP SCH ×2 (08:45→21:28)
[2017-05-03] MEDS: fentaNYL PATCH 100 MCG (DURAGESIC) TD SCH (14:03)
[2017-05-03] MEDS: FENTANYL PATCH REMOVAL TP SCH (14:03)
[2017-05-03 17:27] VITALS: BP 145/75
[2017-05-03] MEDS: MIRTAZAPINE 15 MG (REMERON) TAB PO SCH (20:07)
[2017-05-04] MEDS: HYDROcodone/APAP 10 MG/325 MG (LORTAB) TAB PO PRN ×3 (02:53→11:05)
[2017-05-04 05:09] VITALS: BP 119/63
[2017-05-04] MEDS: IRON POLYSAC 150 MG CAP (NIFEREX) PO SCH (06:21)
[2017-05-04] MEDS: MULTIVIT W/MINERALS TAB (THERAGRAN M) PO SCH (06:21)
[2017-05-04] MEDS: PANTOPRAZOLE 40 MG (PROTONIX) TAB PO SCH (06:21)
[2017-05-04] MEDS: MAGNESIUM OXIDE (MAG-OX)400 MG TAB PO SCH (09:00)
[2017-05-04] MEDS: NICOTINE 14 MG (NICODERM) PATCH TD SCH (09:01)
[2017-05-04] MEDS: NICOTINE PATCH REMOVAL TP SCH (09:01)
[2017-05-04] MEDS: DIVALPROEX 250 MG DELAYED RELEASE (DEPAKOTE) TAB PO SCH (09:01)
[2017-05-04] MEDS: MELOXICAM 7.5 MG (MOBIC) TABLET PO SCH (09:01)
[2017-05-04] MEDS: DAKIN'S 1/4 STRENGTH (0.125%) 473 ML BTL TOP SCH (09:02)
--- NOTE | 2017-05-04 09:47 | Physical Therapy Daily Note ---
PT Daily Note-Current Subjective Pt. states he is very ready to go home. Notes that he has new/different shoes today as his others seemed to tight but then c/o these are too tight as well. Also observes along with this INVENTORY TECHNICIAN that his LLE is more swollen today. Agrees to Rx Pain Numeric Pain Scale: 0-No Pain Appearance tight , shiny LLE edema Mental Status Patient Orientation: Normal For Age Attachments: Other-See Comments ([place]) Transfers Functional [place] Measure 0=Not Assessed/NA 4=Minimal Assistance 1=Total Assistance 5=Supervision or Setup 2=Maximal Assistance 6=Modified [place] 3=Moderate Assistance 7=Complete IndependenceIRFPAI Quality Coding Scale 6 Independent with activity with or without an assistive device 5 Patient requires set up or clean up by helper. Patient completes activity by themselves 4 Supervision or touching assist (CGA). [employer] provide cues , steadying assist 3 The helper provides less than half the effort to complete the activity 2 The helper provides more than half the effort to complete the activity 1 Dependent. The helper does all the effort to complete an activity 7 Patient refused to complete or attempt activity 9 The patient did not perform the activity before the current illness or injury 88 Not attempted due to Medical conditions or safety concerns Transfers (B, C, W/C) (FIM): 6 Scootin Rollin Roll Left to Right (QC): 6 Supine to/from Sit: 6 Sit to/from Stand: 6 Sit to Lying (QC): 6 Sit to Stand (QC): 6 Chair/Zhf-ns-Rvjtc Xfer(QC): 6 Bed to/from Chair: 6 Car Transfer (QC): 6 Weight Bearing Right Lower Extremity: Right Full Weight Bearing Left Lower Extremity: Left Full Weight Bearing Gait Training Does the Patient Walk?: Yes Gait (FIM): 5 Distance (FIM): 3=150 ft (175) Walk 10 feet (QC): 5 Walk 50 ft with 2 Turns(QC): 5 Walk 150 ft (QC): 5 Walking 10ft/uneven surface-QC: 5 Gait Level of Assist: 5 Gait Persons Needed: 1 Gait Assistive Device: FWW pt. still has large wound vacc not yet changed over to the smaller more portable [place], therefore pt needed assist of w/c to f/u with [place] in chair. Pts had taken his thinner crew socks home and brought different shoes he had not had on with AFO and between this and his swelling today the AFO was tight in his shoe but he insisted he could complete 150 -175 ft gait then take it off. Wheelchair Training Does the Pt Use a Wheelchair?: Yes Wheelchair (FIM): 6 Wheelchair Distance: 3=150 ft (200) Wheelchair Level of Assist: 6 Wheel 50 ft with 2 turns (QC): 6 Wheel 150 ft (QC): 6 Type of Wheelchair: Manual Stair Training Stairs (FIM): 0 no stairs, unsafe Balance Special Test Comments unsafe to attempt Assessment Current Status: Good Progress pt. has made good functional progress. is dependent for use of AFO for gait as he has significant foot drop . Dependent for FWW and safest with use of w/c if not accompanied. All this info was shared with PT Short Term Goals Short Term Goals Time Frame: Apr 15, 2017 Transfers (B,C,W/C) (FIM): 3 (met) Gait (FIM): 1 (met) Gait Distance Comment: 10' Gait Level of Assist: 4 Gait Assistive Device: FWW Wheelchair Distance: 150' PT Youth Career Specialist Goals Penitentiary Goals PT Penitentiary Goals Time Frame: Apr 29, 2017 Transfers (B,C,W/C) (FIM): 5 Sit to Lying (QC): 6 Lying-Sitting on Side/Bed(QC): 6 Sit to Stand (QC): 3 Rollin Roll Left to Right (QC): 6 Chair/Ora-gb-Iggkk Xfer(QC): 3 Car Transfer (QC): 3 Gait (FIM): 5 Distance: 300' Walk 10 feet (QC): 4 Walk 10ft-Uneven Surface(QC): 4 Walk 50ft with 2 Turns (QC): 88 Walk 150 ft (QC): 88 Gait Level of Assist: 5 Gait Assistive Device: FWW Stairs (FIM): 1 # of Steps: 1 1 Step (curb) (QC): 4 PT Plan Treatment/Plan Treatment Plan: Discontinue PT Treatment Plan: Bed Mobility, Concurrent Therapy, Education, Functional Activity Lidia, Functional Strength, Group Therapy, Gait, Safety, Therapeutic Exercise, Transfers Treatment Duration: Apr 29, 2017 Frequency: At least 5 of 7 days/Wk (IRF) Estimated Hrs Per Day: 1.5 hours per day Patient and/or Family Agrees t: Yes Safety Risks/Education Patient Education: Gait Training, Transfer Techniques Teaching Recipient: Patient Teaching Methods: Demonstration info in donning AFO and safety of fit etc Time/GCodes Time In: 920 Time Out: 940 Total Billed Treatment Time: 20 Total Billed Treatment 1,FA20m G Codes Necessary: No MOMO KENNY INVENTORY TECHNICIAN May 04, 2017 09:47
--- NOTE | 2017-05-04 10:01 | Occupational Ther Daily Note ---
OT Current Status-Daily Note Subjective Pt seen in room, up in bed, agreeable to OT. No pain mentioned. Appearance Alert, cooperative Mental Status/Objective Functional [place] Measure 0=Not Assessed/NA 4=Minimal Assistance 1=Total Assistance 5=Supervision or Setup 2=Maximal Assistance 6=Modified [place] 3=Moderate Assistance 7=Complete [place] ADL-Treatment P transferred out of bed to w/c mod I. Propelled w/c in room and in bathroom without assistance and recalled to lock brakes. Functional [place] Measure 0=Not Assessed/NA 4=Minimal Assistance 1=Total Assistance 5=Supervision or Setup 2=Maximal Assistance 6=Modified [place] 3=Moderate Assistance 7=Complete IndependenceIRFPAI Quality Coding Scale 6 Independent with activity with or without an assistive device 5 Patient requires set up or clean up by helper. Patient completes activity by themselves 4 Supervision or touching assist (CGA). [place] provide cues , steadying assist 3 The helper provides less than half the effort to complete the activity 2 The helper provides more than half the effort to complete the activity 1 Dependent. The helper does all the effort to complete an activity 7 Patient refused to complete or attempt activity 9 The patient did not perform the activity before the current illness or injury 88 Not attempted due to Medical conditions or safety concerns Eating (FIM): 6 (Able to open packages and cut food without help. Able to feed himself. Has dentures and needs them to eat some foods. ) Eating (QC): 6 Grooming (FIM): 6 (Brushed teeth and combed hair at sink, w/c level. washed face and hands in shower. ) Oral Hygiene (QC): 6 Bathing (FIM): 6 (Turned water on and off. Retrieved towel from bar. Stood to dry bottom, using grab bar. Washed and dried all parts, using shower bench, grab bars, hand held shower) Shower/Bathe Self (QC): 6 Upper Body (FIM): 6 (Doffed and donned shirt without help. Got clothes out and able to put dirty ones away. w/c level, FWW) Upper Body Dressing (QC): 6 Lower Body Dressing (FIM): 4 (Able to doff clothes including slipper socks and put pants on, stand to pull them up mod I with FWW but unable to don slipper socks. pt reported that he has tried sock aid and it just didn't work) Lower Body Dressing (QC): 3 On/Off Footwear (QC): 3 Toileting (FIM): 6 (Pt emptied colostomy bag and used urinal and then emptied them at toilet. w/c level) Toileting Hygiene (QC): 6 Toilet/Commode Transfer (FIM): 0 (Pt does not use toilet. has colostomy bag and uses urinal, emptying it himself) Toilet Transfer (QC): 9 Shower Transfer(FIM): 6 (On/off shower bench, transferring from w/c. Grab bar) Pt reported that he does not need any additional ADL equipment except transfer tub bench. Will DC home today in care of who is an BOX TRUCK OWNER OPERATOR and with home health OT. OT Short Term Goals Short Term Goals Time Frame: Apr 15, 2017 Grooming(FIM): 5 Lower Body Dressing(FIM): 4 Transfers (B,C,W/C) (FIM): 3 (met) 1=Demonstrate adherence to instructed precautions during ADL tasks. 2=Patient will verbalize/demonstrate understanding of assistive devices/ modifications for ADL. 3=Patient will improve strength/tolerance for activity to enable patient to perform ADL's. OT Usp Goals Inside Sales Manager Goals Time Frame: May 01, 2017 Eating (FIM): 6 (met-04/27/2017) Eating (QC): 6 (met-04/27/2017) Groomin (met-04/27/2017) Oral Hygiene (QC): 6 (met-04/27/2017) Bathing(FIM): 6 (met 05-04-17) Shower/Bathe Self (QC): 6 (met 05-04-17) Upper Body Dressing(FIM): 6 (met-04/27/2017) Upper Body Dressing (QC): 6 (met-04/27/2017) Lower Body Dressing(FIM): 6 (not met) Lower Body Dressing (QC): 6 (not met) On/Off Footwear (QC): 6 (not met) Toileting(FIM): 6 (met 05-04-17) Toileting Hygiene (QC): 6 (met 05-04-17) Toilet/Commode Transfer(FIM): 6 (not met. Does not do this) Toilet/Commode Transfer (QC): 6 (not met. Does not do this) Shower Transfer(FIM): 6 (met 12-18-17) Comprehension(FIM): 4 (MET) Expression (FIM): 5 (MET) Social Interaction(FIM): 4 (MET) Problem Solving(FIM): 4 (MET) Memory(FIM): 4 (MET) Additional Goals: 1-Demonstrate ADL Tasks, 2-Verbalize Understanding, 3- ImproveStrength/Lidia 1=Demonstrate adherence to instructed precautions during ADL tasks. 2=Patient will verbalize/demonstrate understanding of assistive devices/ modifications for ADL. 3=Patient will improve strength/tolerance for activity to enable patient to perform ADL's. OT Education/Plan Problem List/Assessment Pt would benefit from skilled OT to increase his independence in basic self care to allow him to safely return to his home to live with his and to decrease caregiver burden after multiple surgeries and medical conditions. Discharge Recommendations Plan/Recommendations: Discharge/Goals Met Treatment Plan/Plan of Care Patient would benefit from OT for education, treatment and training to promote independence in ADL's, mobility, safety and/or upper extremity function for ADL' s. Plan of Care: ADL Retraining, Caregiver Training, Functional Mobility, Group Exercise/Act as Ind (education, exercise, funct activities, activ tolerance, funct mobility, sociallization), UE Funct Exercise/Act, UE Neuromus Re-Ed/Coord Treatment Duration: May 01, 2017 Frequency: At least 5 of 7 days/Wk (IRF) Estimated Hrs Per Day: 1.5 hours per day Agreement: Yes Rehab Potential: Good Time/GCodes Start Time: 08:22 Stop Time: 09:07 Total Time Billed (hr/min): 45 Billed Treatment Time visit, 45 minutes ADL ZOE STAPLETON OT May 04, 2017 10:01
--- NOTE | 2017-05-04 10:19 | Therapy Team Discharge Summary ---
Therapy Discharge Summary Discharge Recommendations Date of Discharge May 04, 2017 Therapy D/C Recommendations: Physical Therapy Home Care Occupational Therapy Pt seen for skilled OT to increase his independence in basic self care to allow him to safely return home with and to decrease caregiver burden. On admission he was able to groom himself modified indep at w/c level, needed setup with eating and upper body dressing, required mod assist with lower body dressing and bathing and max assist shower transfer. he has a colostomy and nagel and did not do toilet transfers. By discharge he was modified independent with all basic ADLs except he needed a little help getting his slipper socks on. He was able to empty colostomy and urinal himself at w/c level. Equipment used included dressing stock, long handled sponge, grab bars, shower seat, hand held shower, FWW, w/c. Pt will get a transfer tub bench for use at home. Home health OT recommended. See tx plan for goals met. DC OT Decreased Activ Tolerance, Decreased UE Strength, Dependent Transfers, Impaired Bed Mobility, Impaired Coordination, Impaired Funct Balance, Impaired Self-Care Skills, Restricted Funct UE ROM PT Residential Goals Rf Engineer Goals PT Residential Goals Time Frame: Apr 29, 2017 Transfers (B,C,W/C) (FIM): 5 Roll Left to Right (QC): 6 Sit to Lying (QC): 6 Lying-Sitting on Side/Bed(QC): 6 Sit to Stand (QC): 3 Chair/Wih-ir-Awnpk Xfer(QC): 3 Car Transfer (QC): 3 Gait (FIM): 5 Distance: 300' Walk 10 feet (QC): 4 Walk 10ft-Uneven Surface(QC): 4 Walk 50ft with 2 Turns (QC): 88 Walk 150 ft (QC): 88 Gait Level of Assist: 5 Gait Assistive Device: FWW Stairs (FIM): 1 # of Steps: 1 1 Step (curb) (QC): 4 OT Residential Goals Rf Engineer Goals Time Frame: May 01, 2017 Eating (FIM): 6 (met-04/27/2017) Eating (QC): 6 (met-04/27/2017) Oral Hygiene (QC): 6 (met-04/27/2017) Grooming(FIM): 6 (met-04/27/2017) Bathing(FIM): 6 (met 05-04-17) Shower/Bathe Self (QC): 6 (met 05-04-17) Upper Body Dressing(FIM): 6 (met-04/27/2017) Upper Body Dressing (QC): 6 (met-04/27/2017) Lower Body Dressing(FIM): 6 (not met) Lower Body Dressing (QC): 6 (not met) On/Off Footwear (QC): 6 (not met) Toileting(FIM): 6 (met 05-04-17) Toileting Hygiene (QC): 6 (met 05-04-17) Toilet/Commode Transfer(FIM): 6 (not met. Does not do this) Toilet/Commode Transfer (QC): 6 (not met. Does not do this) Shower Transfer(FIM): 6 (met 05-04-17) Comprehension(FIM): 4 (MET) Expression (FIM): 5 (MET) Social Interaction(FIM): 4 (MET) Problem Solving(FIM): 4 (MET) Memory(FIM): 4 (MET) Additional Goals: 1-Demonstrate ADL Tasks, 2-Verbalize Understanding, 3- ImproveStrength/Lidia 1=Demonstrate adherence to instructed precautions during ADL tasks. 2=Patient will verbalize/demonstrate understanding of assistive devices/ modifications for ADL. 3=Patient will improve strength/tolerance for activity to enable patient to perform ADL's. Speech Residential Goals Rf Engineer Goals 1. The patient will improve cognitive linguistic function for increased function and safety with ADL's in the least restrictive setting. Time Frame: Two Weeks Comprehension: 4 (MET) Expression: 5 (MET) Social Interaction: 4 (MET) Problem Solvin (MET) Memory: 4 (MET) ZOE STAPLETON OT May 04, 2017 10:19
[2017-05-04] MEDS: LIDOCAINE 1% INJ 20 ML (XYLOCAINE) VIAL INJ PRN (12:38)
[2017-05-04] MEDS: fentaNYL INJECTION 100 MCG/2 ML AMP IVP PRN (12:39)
--- NOTE | 2017-05-04 13:06 | Therapy Team Discharge Summary ---
Therapy Discharge Summary Discharge Recommendations Date of Discharge 05/04/17 Therapy D/C Recommendations: Physical Therapy Home Care Physical Therapy This patient has been seen on ARU post lengthy hospitalization at an OSH (acute care) as well as time at a LTAC prior to admitting to our facility post abdominal aneurysm and encephalopathy. Upon admit, he was max assist with transfers, ambulated 2 steps in the // bars with assist, min assist with wheelchair mobility and unable to attempt stairs due to inability to walk; treatment has consisted of functional strength, gait, tranfers, balance and safety training with work on functional activity tolerance. He has made good progress and has achieved goals to a satisfactory level. At discharge, he is mod indep with transfers, SBA with gait, and mod indep with wheelchair mobility. He is still unsafe to attempt stairs and unable to bend over to pick an object off the floor. He is going home with his to assist and needed and recommend follow up C PT. Occupational Therapy Decreased Activ Tolerance, Decreased UE Strength, Dependent Transfers, Impaired Bed Mobility, Impaired Coordination, Impaired Funct Balance, Impaired Self-Care Skills, Restricted Funct UE ROM PT Custodial Goals School Psychological Examiner Goals PT School Psychological Examiner Goals Time Frame: Apr 29, 2017 Transfers (B,C,W/C) (FIM): 5 (exceeded) Roll Left to Right (QC): 6 (met) Sit to Lying (QC): 6 (met) Lying-Sitting on Side/Bed(QC): 6 (met) Sit to Stand (QC): 3 (exceeded) Chair/Rpg-nj-Atnqt Xfer(QC): 3 (exceeded) Car Transfer (QC): 3 (exceeded) Gait (FIM): 5 (met) Distance: 300' Walk 10 feet (QC): 4 (exceeded) Walk 10ft-Uneven Surface(QC): 4 (exceeded) Walk 50ft with 2 Turns (QC): 88 Walk 150 ft (QC): 88 (exceeded) Gait Level of Assist: 5 Gait Assistive Device: FWW Stairs (FIM): 1 (met) # of Steps: 1 1 Step (curb) (QC): 4 OT Custodial Goals Custodial Goals Time Frame: May 01, 2017 Eating (FIM): 6 (met-04/27/2017) Eating (QC): 6 (met-04/27/2017) Oral Hygiene (QC): 6 (met-04/27/2017) Grooming(FIM): 6 (met-04/27/2017) Bathing(FIM): 6 (met 05-04-17) Shower/Bathe Self (QC): 6 (met 05-04-17) Upper Body Dressing(FIM): 6 (met-04/27/2017) Upper Body Dressing (QC): 6 (met-04/27/2017) Lower Body Dressing(FIM): 6 (not met) Lower Body Dressing (QC): 6 (not met) On/Off Footwear (QC): 6 (not met) Toileting(FIM): 6 (met 05-04-17) Toileting Hygiene (QC): 6 (met 05-04-17) Toilet/Commode Transfer(FIM): 6 (not met. Does not do this) Toilet/Commode Transfer (QC): 6 (not met. Does not do this) Shower Transfer(FIM): 6 (met 05-04-17) Comprehension(FIM): 4 (MET) Expression (FIM): 5 (MET) Social Interaction(FIM): 4 (MET) Problem Solving(FIM): 4 (MET) Memory(FIM): 4 (MET) Additional Goals: 1-Demonstrate ADL Tasks, 2-Verbalize Understanding, 3- ImproveStrength/Lidia 1=Demonstrate adherence to instructed precautions during ADL tasks. 2=Patient will verbalize/demonstrate understanding of assistive devices/ modifications for ADL. 3=Patient will improve strength/tolerance for activity to enable patient to perform ADL's. Speech School Psychological Examiner Goals School Psychological Examiner Goals 1. The patient will improve cognitive linguistic function for increased function and safety with ADL's in the least restrictive setting. Time Frame: Two Weeks Comprehension: 4 (MET) Expression: 5 (MET) Social Interaction: 4 (MET) Problem Solvin (MET) Memory: 4 (MET) LUIS ANTONIO RODRIGUEZ PT May 04, 2017 13:06
[2017-05-04 13:32] VITALS: BP 119/63
--- NOTE | 2017-05-04 19:20 | PM & R (SOAP) Progress Note ---
Subjective Time Seen by Provider: 12:00 Subjective/Events-last exam Patient discharged to home with spouse with HHC.Has progressed well Objective Exam Last Set of Vital Signs Vital Signs Date Time Temp Pulse Resp B/P (MAP) Pulse Ox O2 Delivery O2 Flow Rate FiO2 05/04/17 13:32 83 18 119/63 92 Room Air 05/04/17 05:09 99.6 Capillary Refill : I&O Intake and Output 05/04/17 00:00 Intake Total 2300 ml Output Total 1225 ml Balance 1075 ml Intake Oral 1300 ml IV Total 1000 ml Output Urine Total 425 ml Stool Total 350 ml Other 450 ml # Voids 3 # Bowel Movements 2 General: Alert, Mild Distress HEENT: Atraumatic, PERRLA, EOMI, Mucous Memb Moist/[place] Neck: Supple, No JVD Lungs: Normal Air Movement Heart: Regular Rate Abdomen: Normal Bowel Sounds, Soft, No Tenderness, Other (colostomy functioning midline surgicaal sites as per dr chavez) Skin: Other (Sup. midline abd. -- 4.7 x 1.3 x 0.8 cm base 90% slough, 10 % granulation; Inf. midline abd. 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
== END 2017-05-04 14:04 | disposition home health service (06) | DRG 91 ==
PROVIDERS: ADMIT Physical Medicine & Rehabilitation; ATTEND Physical Medicine & Rehabilitation
DX: G72.81 Critical illness myopathy (principal); Z48.815 Encounter for surgical aftercare following surgery on the digestive system; I69.354 Hemiplegia and hemiparesis following cerebral infarction affecting left non-dominant side; T81.30XA Disruption of wound, unspecified, initial encounter; L89.154 Pressure ulcer of sacral region, stage 4; L89.211 Pressure ulcer of right hip, stage 1; T83.511A Infection and inflammatory reaction due to indwelling urethral catheter, initial encounter; N30.00 Acute cystitis without hematuria; Z66 Do not resuscitate; F10.10 Alcohol abuse, uncomplicated; M54.9 Dorsalgia, unspecified; F17.210 Nicotine dependence, cigarettes, uncomplicated; Z90.49 Acquired absence of other specified parts of digestive tract; Z93.3 Colostomy status; Z23 Encounter for immunization
CPT/HCPCS: 36415; 71020; 76937; 80048; 80053; 81000; 82274; 82962; 83540; 83605; 85014; 85018; 85025; 87040; 87077; 87088; 87186

== ENCOUNTER 2018-11-25 17:14 | Inpatient (IN) | payer BC ==
[~2018-11-25] VITALS: Ht 167.6 cm; Wt 74.4 kg
[~2018-11-25 17:14] MED LIST: CHLO473M4 MM; DIVA250T12 PO; FENT1PAT11 TD; FENT1PAT9 TD; FLUC200T5 PO; FURO20TA4 PO; HYDR-3820 PC; INSU100V16 SQ; IRON150C3 PO; MAGN400T6 PO; MELO7.5T46 PO; MIRT-47 PO; MIRT15TA6 PO; MV-M1TAB2 PO; NICO-587 TD; PANT40TA3 PO; TIZA4TAB3 PO; ZINC28PA TOP
[2018-11-25] MEDS ORDERED: morphine INJ 10 MG/ML 1ML (SYR OR VIAL) IVP STA ×3 (17:22→20:03)
--- NOTE | 2018-11-25 17:29 | ED Abdominal Pain ---
General Stated Complaint: VOMITING; ABD PAIN History of Present Illness Date Seen by Provider: Nov 25, 2018 Time Seen by Provider: 17:22 Initial Comments The patient is a pleasant 63-year-old male presents for evaluation of abdominal pain, nausea and vomiting. He states that his pain began earlier today. He is noted to have a colostomy and reports normal output. He has not noticed any blood in his colostomy bag and has not had any hematemesis. He says that he feels very cold. He has a past surgical history including a AAA repair as well. Review the patient's medical record shows that he presented to this emergency Department in late 2016 for back pain which was secondary to dissecting abdominal aortic aneurysm. He subsequently developed complications which led to ischemic colitis and a left hemicolectomy. His past medical history includes a stroke at the age of 29, history of alcohol and tobacco abuse, and hypertension. Severity/Quality: Severe Location: Periumbilical Radiation: No Radiation Activities at Onset: None Modifying Factors: Improves With Palpation (makes it worse) Associated Symptoms: Denies Symptoms Allergies and Home Medications Allergies Coded Allergies: oxycodone (Verified Allergy, Intermediate, HIVES, 04/18/17) Sulfa (Sulfonamide Antibiotics) (Verified Allergy, Unknown, 04/08/17) codeine (Verified Allergy, Unknown, 04/08/17) Uncoded Allergies: PCn (Allergy, Intermediate, 04/08/17) Home Medications Divalproex Sodium 250 Mg Tab.er.24h, 250 MG PO BID, (Reported) Fentanyl 1 Each Patch.td72, 100 MCG TD Q72H Prescribed by: LEISA GEORGE on 05/01/17 0855 Hydrocodone/Acetaminophen 1 Each Tablet, 1 TAB PC Q6H PRN for PAIN-MODERATE, (Reported) Iron Polysaccharide Complex 150 Mg Capsule, 150 MG PO BID WITH MEALS Prescribed by: LEISA GEORGE on 05/01/17 0855 Magnesium Oxide 400 Mg Tablet, 800 MG PO BID, (Reported) TAKES 2 (400 MG) TABLETS Meloxicam 7.5 Mg Tablet, 15 MG PO DAILY, (Reported) TAKES 2 (7.5 MG) TABLETS Mirtazapine 15 Mg Tab.rapdis, 30 MG PO HS Prescribed by: LEISA GEORGE on 05/01/17 0855 Mv-Mn/FA/Coq10/Lycopene/Lutein 1 Each Tablet, 1 TAB PO DAILY, (Reported) Nicotine 1 Each Patch.td24, 14 MG TD DAILY@0900 Prescribed by: LEISA GEORGE on 05/01/17 0855 Pantoprazole Sodium 40 Mg Tablet.dr, 40 MG PO DAILY, (Reported) Zinc Oxide 28 Gm Oint, 0 GM TOP NEEDED PRN for DIAPER CHANGE Prescribed by: LEISA GEORGE on 05/01/17 0855 Patient Home Medication List Home Medication List Reviewed: Yes Review of Systems Review of Systems Constitutional: no symptoms reported EENTM: No Symptoms Reported Respiratory: No Symptoms Reported Cardiovascular: No Symptoms Reported Gastrointestinal: Abdominal Pain, Nausea, Vomiting Genitourinary: No Symptoms Reported Musculoskeletal: no symptoms reported Skin: no symptoms reported Psychiatric/Neurological: No Symptoms Reported Endocrine: No Symptoms Reported Hematologic/Lymphatic: No Symptoms Reported Past Wqwgipo-Ybnrdc-Xzyzif Hx Past Med/Social Hx: Reviewed Nursing Past Med/Soc Hx Physical Exam Vital Signs Vital Signs - First Documented 11/25/18 17:20 Temp 97.6 Pulse 117 Resp 19 B/P (MAP) 106/72 (83) Pulse Ox 92 O2 Delivery Room Air Capillary Refill : Height/Weight/BMI Height: '" Weight: lbs. oz. kg; BMI Method: General Appearance: WD/WN, no apparent distress HEENT: PERRL/EOMI, normal ENT inspection, pharynx normal Neck: non-tender, full range of motion Respiratory: chest non-tender, lungs clear, normal breath sounds Cardiovascular: no JVD, no murmur, tachycardia (mild) Gastrointestinal: normal bowel sounds, soft, tenderness (periumbilical tenderness is present, left lower colostomy is noted with brown colored soft stool in the back, no blood noted, no guarding or rigidity, soft) Extremities: normal range of motion, non-tender, normal inspection, no pedal edema Back: normal inspection, no CVA tenderness 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, no motor/sensory deficits, alert, normal mood/affect, oriented x 3 Skin: normal color, warm/dry Lymphatic: no adenopathy Focused Exam Lactate Level 11/25/18 18:45: Lactic Acid Level Laboratory Tests Test 11/25/18 18:45 Progress/Results/Core Measures Results/Orders Lab Results Laboratory Tests Test 11/25/18 17:25 11/25/18 18:45 Range/Units White Blood Count 17.2 H 4.3-11.0 10^3/uL Red Blood Count 5.30 4.35-5.85 10^6/uL Hemoglobin 16.1 13.3-17.7 G/DL Hematocrit 50 40-54 % Mean Corpuscular Volume 94 80-99 FL Mean Corpuscular Hemoglobin 30 25-34 PG Mean Corpuscular Hemoglobin Concent 32 32-36 G/DL Red Cell Distribution Width 13.5 10.0-14.5 % Platelet Count 410 H 130-400 10^3/uL Mean Platelet Volume 9.6 7.4-10.4 FL Neutrophils (%) (Auto) 82 H 42-75 % Lymphocytes (%) (Auto) 13 12-44 % Monocytes (%) (Auto) 4 0-12 % Eosinophils (%) (Auto) 0 0-10 % Basophils (%) (Auto) 0 0-10 % Neutrophils # (Auto) 14.1 H 1.8-7.8 X 10^3 Lymphocytes # (Auto) 2.2 1.0-4.0 X 10^3 Monocytes # (Auto) 0.7 0.0-1.0 X 10^3 Eosinophils # (Auto) 0.1 0.0-0.3 10^3/uL Basophils # (Auto) 0.1 0.0-0.1 10^3/uL Neutrophils % (Manual) 68 % Lymphocytes % (Manual) 21 % Monocytes % (Manual) 4 % Eosinophils % (Manual) 3 % Basophils % (Manual) 0 % Band Neutrophils 4 % Blood Morphology Comment NORMAL Sodium Level 143 135-145 MMOL/L Potassium Level 4.2 3.6-5.0 MMOL/L Chloride Level 98 98-107 MMOL/L Carbon Dioxide Level 29 21-32 MMOL/L Anion Gap 16 H 5-14 MMOL/L Blood Urea Nitrogen 15 7-18 MG/DL Creatinine 1.12 0.60-1.30 MG/DL Estimat Glomerular Filtration Rate > 60 BUN/Creatinine Ratio 13 Glucose Level 174 H 70-105 MG/DL Calcium Level 10.0 8.5-10.1 MG/DL Corrected Calcium 8.5-10.1 MG/DL Total Bilirubin 0.4 0.1-1.0 MG/DL Aspartate Amino Transf (AST/SGOT) 13 5-34 U/L Alanine Aminotransferase (ALT/SGPT) 11 0-55 U/L Alkaline Phosphatase 90 40-136 U/L Troponin I < 0.30 <0.30 NG/ML Total Protein 8.4 H 6.4-8.2 GM/DL Albumin 4.6 H 3.2-4.5 GM/DL Lipase 76 8-78 U/L My Orders Orders - SOPHIE TAY DO Comprehensive Metabolic Panel (11/25/18 17:16) Lipase (11/25/18 17:16) Ua Culture If Indicated (11/25/18 17:16) Ed Iv/Invasive Line Start (11/25/18 17:16) Cbc With Automated Diff (11/25/18 17:16) Nothing By Mouth (11/26/18 Breakfast) Ct Abdomen/Pelvis W (11/25/18 17:22) Ondansetron Injection (Zofran Injectio (11/25/18 17:30) Ekg Tracing (11/25/18 17:22) Troponin I (11/25/18 17:22) Creatine Kinase Mb (11/25/18 17:22) Morphine Injection (Morphine Injection (11/25/18 17:22) Manual Differential (11/25/18 17:25) Iohexol Injection (Omnipaque 350 Mg/Ml 1 (11/25/18 18:00) Received Contrast (Hold Metformin- Contr (11/25/18 18:00) Sodium Chloride Flush (Catheter Flush Sy (11/25/18 18:00) Ns (Ivpb) (Sodium Chloride 0.9% Ivpb Bag (11/25/18 18:00) Morphine Injection (Morphine Injection (11/25/18 17:55) Lactic Acid Analyzer (11/25/18 18:42) Blood Culture (11/25/18 18:42) Medications Given in ED Current Medications Medications Dose Ordered Sig/Yanira Route Start Time Stop Time Status Last Admin Dose Admin Iohexol 100 ml ONCE ONCE IV 11/25/18 18:00 11/25/18 18:01 DC 11/25/18 18:16 100 ML Ondansetron HCl 4 mg ONCE ONCE IVP 11/25/18 17:30 11/25/18 17:31 DC 11/25/18 17:41 4 MG Sodium Chloride 10 ml NEEDED PRN IV 11/25/18 18:00 11/25/18 18:17 10 ML Sodium Chloride 100 ml ONCE ONCE IV 11/25/18 18:00 11/25/18 18:01 DC 11/25/18 18:16 100 ML Vital Signs/I&O 11/25/18 17:20 Temp 97.6 Pulse 117 Resp 19 B/P (MAP) 106/72 (83) Pulse Ox 92 O2 Delivery Room Air Progress Progress Note : Progress Note @1904 - CT demonstrated small bowel obstruction and a possible abscess versus distal remnant of the rectum. Case was discussed with Dr. Ceballos who extensive surgical consult and prefers the patient be admitted to the hospitalist. He states to order IV fluids, pain medication and nausea medication, to hold off on an NG tube as patient is not actively vomiting, and to order a chest x-ray for the morning. @1909 - Case d/w Dr. Barahona who accepts the admission. Comment @1721 - Sinus tachycardia, rate of 104, normal axis, no acute ischemic findings noted, no STEMI, reviewed and interpreted by myself Diagnostic Imaging Comments [facility], [place] NAME: PIOTR BRISCOE [facility] REC#: [id number] PT STATUS: REG ER : 1955 PHYSICIAN: SOPHIE TAY DO ADMIT DATE: 11/25/18/ER FS Draft Date of Exam:11/25/18 CT ABDOMEN/PELVIS W PROCEDURE: CT abdomen and pelvis with contrast. TECHNIQUE: Multiple contiguous axial images were obtained through the abdomen and pelvis after administration of intravenous contrast. Auto Exposure Controls were utilized during the CT exam to meet ALARA standards for radiation dose reduction. INDICATION: Abdominal pain for two days, chills, nausea, and vomiting; no history of cancer; previous abdominal aortic aneurysm repair, colostomy. COMPARISON STUDY: There are no pertinent studies. FINDINGS: A small amount fluid is seen in the lower esophagus, possible reflux or due to obstruction. The stomach and most of the small bowel loops are distended. There is a questionable transition zone in the mid pelvis. Findings are consistent with a small bowel obstruction. A left-sided ostomy is present. Bowel loops going into the ostomy are decompressed. There is a 3.5 x 2.2 cm fluid collection anterior to the sacrum. It is unclear if this is a rectal remnant or abscess. Surrounding soft tissue thickening is present. No ascites is present. The liver, gallbladder, spleen, pancreas, and adrenal glands appear normal. Urinary bladder is normal. IMPRESSION: 1. There is small bowel obstruction. 2. Repair of the abdominal aortic aneurysm with no complications. 3. Partial colectomy. Inflammation and a fluid collection are seen anterior to the lower sacrum, possible abscess versus remnant of the rectum. Dictated on workstation # [id number] Dict: 11/25/18 1828 Trans: 11/25/18 1844 [id number] Interpreted by: KIRSTY MENDOZA MD Electronically signed by: Departure Communication (Admissions) Time/Spoke to Admitting Phy: 19:05 Dr. Barahona accepts admission for small bowel obstruction Impression Primary Impression: Small bowel obstruction Additional Impressions: Abdominal pain Nausea & vomiting Disposition: ADMITTED INPATIENT Condition: Stable Admissions Decision to Admit Reason: Admit from ER (General) Decision to Admit/Date: Nov 25, 2018 Time/Decision to Admit Time: 19:05 Departure-Patient Inst. Referrals: LESA URBINA MD (PCP/Family) Primary Care Physician SOPHIE TAY DO Nov 25, 2018 17:29
[2018-11-25] MEDS ORDERED: ONDANSETRON 4 MG/2 ML (SDV) Z0FRAN IVP ONE ×2 (17:30→20:15)
[2018-11-25 17:40] LABS: BASOPHILS # (AUTO) 0.1 10^3/uL (0.0-0.1); BASOPHILS % (AUTO) 0 % (0-10); EOSINOPHILS # (AUTO) 0.1 10^3/uL (0.0-0.3); EOSINOPHILS % (AUTO) 0 % (0-10); HEMATOCRIT 50 % (40-54); HEMOGLOBIN 16.1 G/DL (13.3-17.7); LYMPHOCYTES # (AUTO) 2.2 X 10^3 (1.0-4.0); LYMPHOCYTES % (AUTO) 13 % (12-44); MEAN CORPUSCULAR HEMOGLOBIN 30 PG (25-34); MEAN CORPUSCULAR HGB CONC 32 G/DL (32-36); MEAN CORPUSCULAR VOLUME 94 FL (80-99); MEAN PLATELET VOLUME 9.6 FL (7.4-10.4); MONOCYTES # (AUTO) 0.7 X 10^3 (0.0-1.0); MONOCYTES % (AUTO) 4 % (0-12); NEUTROPHILS # (AUTO) 14.1 X 10^3 (1.8-7.8); NEUTROPHILS % (AUTO) 82 % (42-75); PLATELET COUNT 410 10^3/uL (130-400); RED CELL DISTRIBUTION WIDTH 13.5 % (10.0-14.5); WHITE BLOOD COUNT 17.2 10^3/uL (4.3-11.0)
[2018-11-25 17:58] LABS: ALANINE AMINOTRANSFERASE 11 U/L (0-55); ALBUMIN 4.6 GM/DL (3.2-4.5); ALKALINE PHOSPHATASE 90 U/L (40-136); BILIRUBIN,TOTAL 0.4 MG/DL (0.1-1.0); BUN/CREATININE RATIO 13; CARBON DIOXIDE 29 MMOL/L (21-32); CHLORIDE 98 MMOL/L (98-107); CREATININE SERUM 1.12 MG/DL (0.60-1.30); GFR ESTIMATED > 60; GLUCOSE 174 MG/DL (70-105); LIPASE 76 U/L (8-78); POTASSIUM 4.2 MMOL/L (3.6-5.0); SODIUM 143 MMOL/L (135-145); TOTAL PROTEIN 8.4 GM/DL (6.4-8.2)
[2018-11-25] MEDS ORDERED: CATHETER FLUSH 10 ML SYR IV PRN (18:00)
[2018-11-25] MEDS ORDERED: NS 100 ML (IVPB) BAG IV ONE (18:00)
[2018-11-25] MEDS ORDERED: IOHEXOL 350 MG/ML 100 ML (OMNIPAQUE 350) VIAL IV ONE (18:00)
[2018-11-25] MEDS ORDERED: HOLD METFORMIN - RECEIVED CONTRAST 20 ML VIAL IV SCH (18:00)
[2018-11-25 18:24] LABS: BAND NEUTROPHILS 4 %; BASOPHILS % (MANUAL) 0 %; EOSINOPHILS % (MANUAL) 3 %; LYMPHOCYTES % (MANUAL) 21 %; MONOCYTES % (MANUAL) 4 %; NEUTROPHILS % (MANUAL) 68 %
[2018-11-25 18:25] LABS: RBC MORPH NORMAL
--- NOTE | 2018-11-25 18:44 | Diagnostic Imaging Report ---
PROCEDURE: CT abdomen and pelvis with contrast. TECHNIQUE: Multiple contiguous axial images were obtained through the abdomen and pelvis after administration of intravenous contrast. Auto Exposure Controls were utilized during the CT exam to meet ALARA standards for radiation dose reduction. INDICATION: Abdominal pain for two days, chills, nausea, and vomiting; no history of cancer; previous abdominal aortic aneurysm repair, colostomy. COMPARISON STUDY: There are no pertinent studies. FINDINGS: A small amount fluid is seen in the lower esophagus, possible reflux or due to obstruction. The stomach and most of the small bowel loops are distended. There is a questionable transition zone in the mid pelvis. Findings are consistent with a small bowel obstruction. A left-sided ostomy is present. Bowel loops going into the ostomy are decompressed. There is a 3.5 x 2.2 cm fluid collection anterior to the sacrum. It is unclear if this is a rectal remnant or abscess. Surrounding soft tissue thickening is present. No ascites is present. The liver, gallbladder, spleen, pancreas, and adrenal glands appear normal. Urinary bladder is normal. IMPRESSION: 1. There is small bowel obstruction. 2. Repair of the abdominal aortic aneurysm with no complications. 3. Partial colectomy. Inflammation and a fluid collection are seen anterior to the lower sacrum, possible abscess versus remnant of the rectum. Dictated by: Dictated on workstation # [id number]
[2018-11-25] MEDS ORDERED: NS IV 1000 ML 1,000 ML IV SCH (19:30)
[2018-11-25 19:54] LABS: BILIRUBIN,URINE NEGATIVE (NEGATIVE); CLARITY,URINE CLEAR; COLOR,URINE YELLOW; GLUCOSE, URINE (UA) NEGATIVE (NEGATIVE); KETONES,URINE NEGATIVE (NEGATIVE); LEUKOCYTE ESTERASE ,URINE NEGATIVE (NEGATIVE); NITRITE,URINE NEGATIVE (NEGATIVE); PH,URINE 6.5 (5-9); PROTEIN,URINE TRACE (NEGATIVE); SQUAMOUS EPITHELIAL CELL,UR 0-2 /HPF; UROBILINOGEN,URINE 0.2 MG/DL (NORMAL); WBC,URINE RARE /HPF
[2018-11-25] MEDS ORDERED: morphine INJ 10 MG/ML 1ML (SYR OR VIAL) ONE (20:01)
[2018-11-25] MEDS ORDERED: ONDANSETRON 4 MG/2 ML (SDV) Z0FRAN ONE (20:04)
--- NOTE | 2018-11-25 21:00 | NUR ---
PIOTR BRISCOE admitted to room 405-1, with an admitting diagnosis of small bowel obstruction, on 11/25/18 from [facility] via ems services, accompanied by ems and .PIOTR BRISCOE introduced to surroundings, call light, bed controls, phone, TV, temperature control, lights, meal times, smoking policy, visitor policy, side rail policy, bathrooms and showers. Patient Rights given to patient in the handbook. PIOTR BRISCOE verbalizes understanding that [facility] is not responsible for the loss or damage to any personal effects or valuables that are kept in the patients posession during their hospitalization. PIOTR BRISCOE verbalizes understanding of Interdisciplinary Patient Education. Patient and/or family were informed about the Rapid Response Team and its purpose.
[2018-11-25 21:06] VITALS: BP 124/75
[2018-11-25] MEDS: PROMETHAZINE INJ 25 MG/ML (PHENERGAN) AMP IVP PRN (21:49)
[2018-11-25] MEDS: fentaNYL INJECTION 100 MCG/2 ML AMP IVP PRN (21:49)
[2018-11-25] MEDS: NS IV 1000 ML 1,000 ML IV SCH (22:24)
--- NOTE | 2018-11-25 23:48 | CONSULTATION REPORT ---
DATE OF SERVICE: 11/25/2018 ATTENDING PRIMARY CARE PHYSICIAN: Rubio Garcia MD ADMITTING PHYSICIAN: Dr. Barahona. HISTORY OF PRESENT ILLNESS: The patient is a 63-year-old male, who presented to [place] [facility] with abdominal distention as well as nausea, vomiting. This gentleman reports that he had a previous significant sized abdominal aortic aneurysm requiring open repair. He then did develop a left-sided ischemic colitis requiring a left hemicolectomy as well as placement of an end colostomy. He states that he developed the abdominal distention, nausea and vomiting earlier today. He does state that he is having normal colostomy output. He does not report any changes in the consistency of his stools of his colostomy as well. A CT scan was performed, which did show distended stomach as well as loops of small bowel consistent with partial small-bowel obstruction. There is a small area identified within the pelvis, which may indicate either a small abscess versus small Geno's pouch. PAST MEDICAL HISTORY: Abdominal aortic aneurysm, hypertension, stroke, age 29, history of alcohol and tobacco abuse and gastroesophageal reflux disease. PAST SURGICAL HISTORY: Abdominal aortic aneurysm repair, left hemicolectomy and end colostomy. ALLERGIES: OXYCODONE, SULFA, CODEINE. MEDICATIONS: Divalproex 250 mg b.i.d., fentanyl patch 100 mcg q.72 hours, hydrocodone p.r.n., iron 150 mg b.i.d., magnesium 400 mg, meloxicam 7.5 mg daily, mirtazapine 30 mg at bedtime, nicotine patch daily, Protonix 40 mg daily, zinc oxide p.r.n. SOCIAL HISTORY: Previous smoker and alcohol. FAMILY HISTORY: Noncontributory. REVIEW OF SYSTEMS: Well-nourished male currently in no acute distress. He is not experiencing any shortness of breath or difficulty breathing. No chest pain, palpitations, diaphoresis. Abdominal distention starting earlier today as well as a few episodes of nausea and vomiting of undigested food as well as bilious material. No hematemesis, no coffee ground emesis. He has an end colostomy, which is functional. No red blood nor any dark stools. No fever, chills, no recent inadvertent weight loss. All other review of systems negative. PHYSICAL EXAMINATION: VITAL SIGNS: Temperature 97.6, blood pressure 106/72, pulse 117, respirations 19, pulse ox 92% on room air. CHEST: A few scattered rales and rhonchi bilaterally. HEART: Regular, no murmurs. EXTREMITIES: No lower extremity edema, negative Homans sign. HEENT: No scleral icterus. NECK: No cervical lymphadenopathy. ABDOMEN: Soft, slightly distended. There is mild discomfort on deep palpation. There are no palpable masses, no hernias and no peritoneal signs. SKIN: Warm, dry. LABORATORY DATA: WBC 17.2, hemoglobin 16.1, hematocrit 50, platelets 410. BUN 15, creatinine 1.12. Liver function enzymes are normal. Lipase is normal. ASSESSMENT AND PLAN: A 63-year-old male with partial small-bowel obstruction. There are multiple etiologies of this; however, this could be related to adhesion tissue; however, there is a possibility of gastroenteritis due to a viral etiology. We will treat him conservatively with IV hydration, bowel rest for now and await more bowel function and hopeful resolution of his symptoms. If his symptoms persist, we will place a nasogastric tube and then at some point proceed with a Gastrografin small bowel follow through. Job ID: [id number] DocumentID: [id number] Dictated Date: 11/25/2018 21:22:07 Liner Machine Operator Date: 11/25/2018 23:48:27 Dictated By: ALEJANDRO BLANK MD [facility]
[2018-11-26] VITALS (7 sets, daily range): BP systolic 105–156; BP diastolic 57–75
--- NOTE | 2018-11-26 00:51 | NUR ---
0030- THIS RN NOTICED THERE WAS A CRITICAL RESULT CK-MB OF 7.0. NOTE READ, CRITICAL RESULT CALLED TO KIRSTEN AT 2350. 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 [place] [facility] RN CLAY SPOKE WITH THE ER DOCTOR AND HE WAS UNSURE WHETHER HE ORDERED IT OR NOT, TO CALL DR. POST TO SEE IF SHE WANTED A REPEAT LAB. 0048-SPOKE WITH DR. POST TELEPHONE ORDERS RECEIVED TO REPEAT CK-MB STAT. WILL CARRY OUT ORDERS AND CONTINUE TO MONITOR PT.
[2018-11-26] MEDS: ONDANSETRON 4 MG/2 ML (SDV) Z0FRAN IV PRN ×2 (01:21→17:54)
[2018-11-26] MEDS: fentaNYL INJECTION 100 MCG/2 ML AMP IVP PRN ×4 (01:21→18:40)
[2018-11-26] MEDS: PROMETHAZINE INJ 25 MG/ML (PHENERGAN) AMP IVP PRN ×2 (03:37→07:55)
--- NOTE | 2018-11-26 05:30 | NUR ---
0507-SPOKE WITH DR. BLANK AND INFORMED HIM THAT PT HAS BEEN THROWING UP THROUGHOUT THE NIGHT, AT LEAST 5-6 TIMES. TELEPHONE ORDERS RECEIVED TO PLACE NG TUBE. 0530-THIS RN ATTEMPTED TO PLACE NG TUBE, PT GRABBED NG TUBE AND PULLED IT OUT. PT REFUSING TO LET US ATTEMPT AGAIN AT THIS TIME. WILL CONTINUE TO MONITOR PT.
[2018-11-26] MEDS: NS IV 1000 ML 1,000 ML IV SCH ×3 (06:38→23:32)
--- NOTE | 2018-11-26 07:00 | NUR ---
SPOKE WITH DR. BLANK AND INFORMED HIM THAT PT REFUSING NG TUBE UNLESS HE HAS SOME MEDS TO CALM HIM DOWN. TELEPHONE ORDERS RECEIVED TO GIVE 2MG ATIVAN IV X1 DOSE AND 75MCG FENTANYL IV TO HELP PT BEFORE NG TUBE INSERTION. SPOKE WITH PT AND HE IS STILL WANTING TO WAIT A LITTLE BIT BEFORE NG TUBE INSERTION.
[2018-11-26 07:11] LABS: HEMOGLOBIN 14.5 G/DL (13.3-17.7); MEAN PLATELET VOLUME 9.6 FL (7.4-10.4); RED CELL DISTRIBUTION WIDTH 14.2 % (10.0-14.5)
[2018-11-26 07:34] LABS: ALANINE AMINOTRANSFERASE 11 U/L (0-55); ALKALINE PHOSPHATASE 77 U/L (40-136); BILIRUBIN,TOTAL 0.3 MG/DL (0.1-1.0); BUN/CREATININE RATIO 15; CALCIUM 9.3 MG/DL (8.5-10.1); CARBON DIOXIDE 27 MMOL/L (21-32); CHLORIDE 103 MMOL/L (98-107); CREATININE SERUM 1.04 MG/DL (0.60-1.30); GFR ESTIMATED > 60; GLUCOSE 138 MG/DL (70-105); POTASSIUM 3.7 MMOL/L (3.6-5.0); SODIUM 145 MMOL/L (135-145); TOTAL PROTEIN 7.3 GM/DL (6.4-8.2)
[2018-11-26] MEDS ORDERED: LORazepam INJ 2 MG/ML (ATIVAN) VIAL IVP NR (07:45)
[2018-11-26] MEDS: PANTOPRAZOLE 40 MG (PROTONIX) VIAL IV SCH (08:33)
[2018-11-26] MEDS ORDERED: CITA20TA9 PO (10:31)
[2018-11-26] MEDS ORDERED: DICY20TA10 PO (10:31)
[2018-11-26] MEDS ORDERED: IRON150C3 PO (10:31)
[2018-11-26] MEDS ORDERED: HYDR-3812 PO (10:31)
[2018-11-26] MEDS ORDERED: MORP-33 PO (10:31)
[2018-11-26] MEDS ORDERED: MIRT15TA6 PO (10:31)
[2018-11-26] MEDS ORDERED: IRON1CAP21 PO (10:37)
[2018-11-26] MEDS ORDERED: DIVA-74 PO (10:37)
[2018-11-26] MEDS ORDERED: ONDA4TAB11 PO (10:39)
--- NOTE | 2018-11-26 10:39 | NUR ---
SPOKE WITH THE PATIENTS REGARDING THE PATIENTS MEDICATIONS. THERE WAS A LIST ON THE CHART PRINTED FROM THE OFFICE AND SHE HAD A LIST SHE HAD MADE AT HOME WELL. I WENT OVER THESE LISTS WITH HER AND COMPARED WITH THE EXT MED HX. HIS BENTYL WAS FILLED 20MG BID PRN, SHE STATES IT MAKES HIM HAVE HARD STOOLS SO THEY DO 1/4 TO 1/2 TAB NEEDED BUT HE DOES NOT LIKE TO TAKE IT. IN ADDITION TO WHAT IS SHOWN ON THE EXT MED HX BRENDEN WINKLER GAYATHRI FILLED: 10-25-18 CITALOPRAM 20MG 2 DAILY #60 9HE TAKES BID) 10-25-[address] 250MG BID #60 09-28-18 REMERON 15MG 2 HS #60 (HE ONLY TAKES 1 HS) 08-17-18 POLY IRON FORTE 150MG DAILY #30 (SHE STATES HE DOES NOT ALWAYS TAKE THIS LIKE HE SHOULD BECAUSE HE DOES NOT LIKE TO TAKE IT) HE TAKES MAG OX 400MG AND A MTV ONCE DAILY OTC.
--- NOTE | 2018-11-26 11:18 | Progress Note ---
Subjective Date Seen by a Provider: Nov 26, 2018 Time Seen by a Provider: 10:00 Subjective/Events-last exam doing much better since NGT placed. abd much less distended. significant amount of colostomy output this am. Focused Exam Lactate Level 11/25/18 18:45: Lactic Acid Level 2.20*H Objective Exam Vital Signs Date Time Temp Pulse Resp B/P (MAP) Pulse Ox O2 Delivery O2 Flow Rate FiO2 11/26/18 08:00 98.0 81 20 156/75 (102) 90 Room Air 11/26/18 04:00 96.4 87 20 156/74 (101) 92 Room Air 11/26/18 00:00 97.6 85 18 145/71 (95) 90 Room Air 11/25/18 21:20 Room Air 11/25/18 21:06 98.1 93 22 124/75 93 Room Air 11/25/18 20:18 98.9 86 22 106/76 (86) 97 Room Air 11/25/18 17:20 97.6 117 19 106/72 (83) 92 Room Air I & O 11/26/18 07:00 Intake Total 1000 ml Output Total 350 ml Balance 650 ml Capillary Refill : Less Than 3 Seconds General Appearance: No Apparent Distress HEENT: PERRL/EOMI Neck: Full Range of Motion Respiratory: Chest Non Tender, Normal Breath Sounds Cardiovascular: Regular Rate, Rhythm Gastrointestinal: normal bowel sounds, soft Extremity: Normal Capillary Refill Neurologic/Psychiatric: Alert, Oriented x3 Skin: Normal Color Lymphatic: No Adenopathy Results Lab Laboratory Tests 11/25/18 17:25: White Blood Count 17.2H, Red Blood Count 5.30, Hemoglobin 16.1, Hematocrit 50, Mean Corpuscular Volume 94, Mean Corpuscular Hemoglobin 30, Mean Corpuscular Hemoglobin Concent 32, Red Cell Distribution Width 13.5, Platelet Count 410H, Mean Platelet Volume 9.6, Neutrophils (%) (Auto) 82H, Lymphocytes (%) (Auto) 13, Monocytes (%) (Auto) 4, Eosinophils (%) (Auto) 0, Basophils (%) (Auto) 0, Neutrophils # (Auto) 14.1H, Lymphocytes # (Auto) 2.2, Monocytes # (Auto) 0.7, Eosinophils # (Auto) 0.1, Basophils # (Auto) 0.1, Neutrophils % (Manual) 68, Lymphocytes % (Manual) 21, Monocytes % (Manual) 4, Eosinophils % (Manual) 3, Basophils % (Manual) 0, Band Neutrophils 4, Blood Morphology Comment NORMAL, Sodium Level 143, Potassium Level 4.2, Chloride Level 98, Carbon Dioxide Level 29, Anion Gap 16H, Blood Urea Nitrogen 15, Creatinine 1.12, Estimat Glomerular Filtration Rate > 60, BUN/Creatinine Ratio 13, Glucose Level 174H, Calcium Level 10.0, Corrected Calcium , Total Bilirubin 0.4, Aspartate Amino Transf (AST/SGOT) 13, Alanine Aminotransferase (ALT/SGPT) 11, Alkaline Phosphatase 90, Creatine Kinase MB 7.0*H, Troponin I < 0.30, Total Protein 8.4H, Albumin 4.6H, Lipase 76 11/25/18 18:45: Lactic Acid Level 2.20*H 11/25/18 19:40: Urine Color YELLOW, Urine Clarity CLEAR, Urine pH 6.5, Urine Specific [place] 1.015L, Urine Protein TRACE, Urine Glucose (UA) NEGATIVE, Urine Ketones NEGATIVE, Urine Nitrite NEGATIVE, Urine Bilirubin NEGATIVE, Urine Urobilinogen 0.2, Urine Leukocyte Esterase NEGATIVE, Urine RBC (Auto) NEGATIVE, Urine RBC NONE, Urine WBC RARE, Urine Squamous Epithelial Cells 0-2, Urine Crystals NONE, Urine Bacteria NONE, Urine Casts PRESENT, Urine Hyaline Casts 5-10H, Urine Mucus TRACE, Urine Culture Indicated NO 11/26/18 01:01: Creatine Kinase MB 5.6 11/26/18 07:05: White Blood Count 10.0, Red Blood Count 4.84, Hemoglobin 14.5, Hematocrit 45, Mean Corpuscular Volume 93, Mean Corpuscular Hemoglobin 30, Mean Corpuscular Hemoglobin Concent 32, Red Cell Distribution Width 14.2, Platelet Count 260, Mean Platelet Volume 9.6, Sodium Level 145, Potassium Level 3.7, Chloride Level 103, Carbon Dioxide Level 27, Anion Gap 15H, Blood Urea Nitrogen 16, Creatinine 1.04, Estimat Glomerular Filtration Rate > 60, BUN/Creatinine Ratio 15, Glucose Level 138H, Calcium Level 9.3, Corrected Calcium 9.3, Total Bilirubin 0.3, Aspartate Amino Transf (AST/SGOT) 9, Alanine Aminotransferase (ALT/SGPT) 11, Alkaline Phosphatase 77, Total Protein 7.3, Albumin 4.0 Assessment/Plan Assessment/Plan Assess & Plan/Chief Complaint PSBO. having much more colostomy output this am. will check 2 view AXR today. Clinical Quality Measures DVT/VTE Risk/Contraindication: Risk Factor Score Per Nursin RFS Level Per Nursing on Admit: 4+=Very High ALEJANDRO BLANK MD Nov 26, 2018 11:18
--- NOTE | 2018-11-26 11:52 | History & Physical ---
HPI History of Present Illness: 63 yo M with extensive h/o abdominal surgeries that presents with increasing vomiting and abdominal pain. states that for the last few days he has been having more pain. They have been watching his colostomy output because he has had a SBO several years ago. She states that he was still having good output until the day of admission. Denies any blood in stool or vomit. + fatigue and chills. Denies taking a temperature. He had a partial colotomy after ischemic bowel in 2017. NG tube was place this AM and patient is resting comfortably after ativan dose Source: patient, spouse Exam Limitations: clinical condition (just had dose of ativan) Date seen by provider: Nov 26, 2018 Time Seen by Provider: 11:00 Attending Physician Fabi Barahona MD PCP Lesa Urbina MD Consult Date of Admission Nov 25, 2018 at 19:10 Home Medications Home Medications Reviewed patient Home Medication Reconciliation performed by pharmacy medication reconciliations mail technician and/or nursing. Patients Allergies have been reviewed. Allergies Coded Allergies: oxycodone (Verified Allergy, Intermediate, HIVES, 04/18/17) Sulfa (Sulfonamide Antibiotics) (Verified Allergy, Unknown, 04/08/17) codeine (Verified Allergy, Unknown, 04/08/17) Uncoded Allergies: PCn (Allergy, Intermediate, 04/08/17) HIE-Iqqwhn-Unvhaf Hx Patient Social History Living Status: Lives at home with Alcohol Use: Past History Recreational Drug Use: No Smoking Status: Current Everyday Smoker Type Used: Cigarettes, Electronic/Vapor 2nd Hand Smoke Exposure: No Recent Foreign Travel: No Contact w/other who traveled: No Recent Hopitalizations: No Recent Infectious Disease Expo: No Immunizations Up To Date Date of Influenza Vaccine: Feb 08, 2018 Past Medical History AAA rupture s/p repair 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 Family Medical History Significant Family History: No Pertinent Family Hx Family History: Cardiovascular disease 19 FATHER Completed stroke 19 FATHER Diabetes mellitus 19 MOTHER Glaucoma 19 MOTHER Hypertension 19 FATHER 19 MOTHER G8 BROTHER Myocardial infarction 19 FATHER Review of Systems ([facility]) Constitutional: No chills; malaise, weakness EENTM: no symptoms reported Respiratory: no symptoms reported; No cough, No dyspnea on exertion, No short of breath Cardiovascular: no symptoms reported; No chest pain, No edema, No palpitations Gastrointestinal: no symptoms reported; No constipation, No diarrhea; loss of appetite, nausea, vomiting Genitourinary: no symptoms reported; No dysuria, No frequency, No hematuria Musculoskeletal: no symptoms reported Skin: no symptoms reported Psychiatric/Neurological: No Symptoms Reported Reviewed Test Results Reviewed Test Results Lab Laboratory Tests Test 11/25/18 17:25 11/25/18 18:45 11/25/18 19:40 11/26/18 01:01 Range/Units White Blood Count 17.2 H 4.3-11.0 10^3/uL Red Blood Count 5.30 4.35-5.85 10^6/uL Hemoglobin 16.1 13.3-17.7 G/DL Hematocrit 50 40-54 % Mean Corpuscular Volume 94 80-99 FL Mean Corpuscular Hemoglobin 30 25-34 PG Mean Corpuscular Hemoglobin Concent 32 32-36 G/DL Red Cell Distribution Width 13.5 10.0-14.5 % Platelet Count 410 H 130-400 10^3/uL Mean Platelet Volume 9.6 7.4-10.4 FL Neutrophils (%) (Auto) 82 H 42-75 % Lymphocytes (%) (Auto) 13 12-44 % Monocytes (%) (Auto) 4 0-12 % Eosinophils (%) (Auto) 0 0-10 % Basophils (%) (Auto) 0 0-10 % Neutrophils # (Auto) 14.1 H 1.8-7.8 X 10^3 Lymphocytes # (Auto) 2.2 1.0-4.0 X 10^3 Monocytes # (Auto) 0.7 0.0-1.0 X 10^3 Eosinophils # (Auto) 0.1 0.0-0.3 10^3/uL Basophils # (Auto) 0.1 0.0-0.1 10^3/uL Neutrophils % (Manual) 68 % Lymphocytes % (Manual) 21 % Monocytes % (Manual) 4 % Eosinophils % (Manual) 3 % Basophils % (Manual) 0 % Band Neutrophils 4 % Blood Morphology Comment NORMAL Sodium Level 143 135-145 MMOL/L Potassium Level 4.2 3.6-5.0 MMOL/L Chloride Level 98 98-107 MMOL/L Carbon Dioxide Level 29 21-32 MMOL/L Anion Gap 16 H 5-14 MMOL/L Blood Urea Nitrogen 15 7-18 MG/DL Creatinine 1.12 0.60-1.30 MG/DL Estimat Glomerular Filtration Rate > 60 BUN/Creatinine Ratio 13 Glucose Level 174 H 70-105 MG/DL Calcium Level 10.0 8.5-10.1 MG/DL Corrected Calcium 8.5-10.1 MG/DL Total Bilirubin 0.4 0.1-1.0 MG/DL Aspartate Amino Transf (AST/SGOT) 13 5-34 U/L Alanine Aminotransferase (ALT/SGPT) 11 0-55 U/L Alkaline Phosphatase 90 40-136 U/L Creatine Kinase MB 7.0 *H 5.6 <6.6 NG/ML Troponin I < 0.30 <0.30 NG/ML Total Protein 8.4 H 6.4-8.2 GM/DL Albumin 4.6 H 3.2-4.5 GM/DL Lipase 76 8-78 U/L Lactic Acid Level 2.20 *H 0.50-2.00 MMOL/L Urine Color YELLOW Urine Clarity CLEAR Urine pH 6.5 5-9 Urine Specific [place] 1.015 L 1.016-1.022 Urine Protein TRACE NEGATIVE Urine Glucose (UA) NEGATIVE NEGATIVE Urine Ketones NEGATIVE NEGATIVE Urine Nitrite NEGATIVE NEGATIVE Urine Bilirubin NEGATIVE NEGATIVE Urine Urobilinogen 0.2 NORMAL MG/DL Urine Leukocyte Esterase NEGATIVE NEGATIVE Urine RBC (Auto) NEGATIVE NEGATIVE Urine RBC NONE /HPF Urine WBC RARE /HPF Urine Squamous Epithelial Cells 0-2 /HPF Urine Crystals NONE /LPF Urine Bacteria NONE /HPF Urine Casts PRESENT /LPF Urine Hyaline Casts 5-10 H /LPF Urine Mucus TRACE /LPF Urine Culture Indicated NO Test 11/26/18 07:05 Range/Units White Blood Count 10.0 4.3-11.0 10^3/uL Red Blood Count 4.84 4.35-5.85 10^6/uL Hemoglobin 14.5 13.3-17.7 G/DL Hematocrit 45 40-54 % Mean Corpuscular Volume 93 80-99 FL Mean Corpuscular Hemoglobin 30 25-34 PG Mean Corpuscular Hemoglobin Concent 32 32-36 G/DL Red Cell Distribution Width 14.2 10.0-14.5 % Platelet Count 260 130-400 10^3/uL Mean Platelet Volume 9.6 7.4-10.4 FL Sodium Level 145 135-145 MMOL/L Potassium Level 3.7 3.6-5.0 MMOL/L Chloride Level 103 98-107 MMOL/L Carbon Dioxide Level 27 21-32 MMOL/L Anion Gap 15 H 5-14 MMOL/L Blood Urea Nitrogen 16 7-18 MG/DL Creatinine 1.04 0.60-1.30 MG/DL Estimat Glomerular Filtration Rate > 60 BUN/Creatinine Ratio 15 Glucose Level 138 H 70-105 MG/DL Calcium Level 9.3 8.5-10.1 MG/DL Corrected Calcium 9.3 8.5-10.1 MG/DL Total Bilirubin 0.3 0.1-1.0 MG/DL Aspartate Amino Transf (AST/SGOT) 9 5-34 U/L Alanine Aminotransferase (ALT/SGPT) 11 0-55 U/L Alkaline Phosphatase 77 40-136 U/L Total Protein 7.3 6.4-8.2 GM/DL Albumin 4.0 3.2-4.5 GM/DL Physical Exam-([facility]) Physical Exam Vital Signs VS - Last 72 Hours, by Label 11/25/18 11/25/18 11/25/18 11/25/18 17:20 20:18 21:06 21:20 Temp 97.6 98.9 98.1 Pulse 117 86 93 Resp 19 22 22 B/P (MAP) 106/72 (83) 106/76 (86) 124/75 Pulse Ox 92 97 93 O2 Delivery Room Air Room Air Room Air Room Air 11/26/18 11/26/18 11/26/18 00:00 04:00 08:00 Temp 97.6 96.4 98.0 Pulse 85 87 81 Resp 18 20 20 B/P (MAP) 145/71 (95) 156/74 (101) 156/75 (102) Pulse Ox 90 92 90 O2 Delivery Room Air Room Air Room Air Capillary Refill : Less Than 3 Seconds General Appearance: mild distress HEENT: other (NG tube in place) Neck: non-tender, full range of motion Respiratory: chest non-tender, lungs clear, normal breath sounds, no respiratory distress, no accessory muscle use Cardiovascular: normal peripheral pulses, regular rate, rhythm, no murmur Gastrointestinal: soft; No guarding, No rebound; tenderness, other (Colostomy with new output) Back: no CVA tenderness, no vertebral tenderness Extremities: normal range of motion, no pedal edema, no calf tenderness, normal capillary refill Neurologic/Psychiatric: health practice manager II-XII nml as tested, no motor/sensory deficits, alert, normal mood/affect Skin: normal color, warm/dry Lymphatic: no adenopathy Assessment/Plan Assessment/Plan Admission Status: Inpatient Order (span 2 midnights) Reason for Inpatient Admission: Patient is NPO and requiring IVFs and close monitoring for SBO (1) Small bowel obstruction Status: Acute Assessment & Plan: - Dr Ceballos consulted and managing, NG placed today, patient to remain NPO until advanced by Dr Ceballos (2) Nausea & vomiting Status: Acute Assessment & Plan: - Improved since NG placement Qualifiers: Qualified Codes: R11.2 - Nausea with vomiting, unspecified (3) Colostomy in place Status: Chronic (4) Debility Status: Acute Assessment & Plan: - PT consult (5) DVT prophylaxis Status: Acute Assessment & Plan: - Lovenox Clinical Quality Measures DVT/VTE Risk/Contraindication: Risk Factor Score Per Nursin RFS Level Per Nursing on Admit: 4+=Very High Copy Copies To 1: LESA URBINA MD, HOLLY R MD Nov 26, 2018 11:52
--- NOTE | 2018-11-26 15:05 | Diagnostic Imaging Report ---
INDICATION: Inpatient with partial small bowel obstruction. TECHNIQUE: Two-view chest at 02:22 p.m. CORRELATION STUDY: 04/23/2017. FINDINGS: Gastric tube has been placed since prior study. Tip projects over the expected location in the fundal aspect of the stomach. Lung cardoso are hyperinflated with changes reflecting COPD but generally clear. Heart size and mediastinum are unremarkable. Mild calcification of the aortic arch. IMPRESSION: 1. Interval placement of a gastric tube with tip likely at the fundal aspect of the stomach. Dictated by: Dictated on workstation # [id number]
--- NOTE | 2018-11-26 15:11 | Diagnostic Imaging Report ---
INDICATION: Small bowel obstruction. TECHNIQUE: Supine and upright view of the abdomen 2:23 p.m. CORRELATION STUDY: CT of 11/25/2018. FINDINGS: There has been interval placement of a gastric tube, tip likely in the fundal aspect of the stomach. There is again demonstration of dilated fluid-filled loops of small bowel. Differential air-fluid levels are present. Compared to prior CT examination, the severity of the distention does appear to be slightly diminished and perhaps slightly improved but does remain present and prominent. Surgical changes with anastomotic suture line in the right midabdomen are noted. Apparent ostomy over the left midabdomen. Contrast material within the urinary bladder. Surgical clips over the left paraspinal region of the upper abdomen. IMPRESSION: 1. Findings remain consistent with likely high-degree small bowel obstruction. The overall severity of small bowel distention, perhaps very minimally improved from CT study of one day earlier, post gastric tube placement. Dictated by: Dictated on workstation # [id number]
[2018-11-27 04:00] VITALS: BP 115/78
[2018-11-27 04:47] LABS: BASOPHILS % (AUTO) 0 % (0-10); EOSINOPHILS % (AUTO) 0 % (0-10); HEMATOCRIT 40 % (40-54); HEMOGLOBIN 12.8 G/DL (13.3-17.7); LYMPHOCYTES # (AUTO) 1.7 X 10^3 (1.0-4.0); LYMPHOCYTES % (AUTO) 23 % (12-44); MEAN CORPUSCULAR HEMOGLOBIN 31 PG (25-34); MEAN CORPUSCULAR HGB CONC 32 G/DL (32-36); MEAN CORPUSCULAR VOLUME 95 FL (80-99); MEAN PLATELET VOLUME 10.1 FL (7.4-10.4); MONOCYTES # (AUTO) 0.6 X 10^3 (0.0-1.0); MONOCYTES % (AUTO) 8 % (0-12); NEUTROPHILS # (AUTO) 5.2 X 10^3 (1.8-7.8); NEUTROPHILS % (AUTO) 69 % (42-75); PLATELET COUNT 253 10^3/uL (130-400); RED CELL DISTRIBUTION WIDTH 14.2 % (10.0-14.5); WHITE BLOOD COUNT 7.6 10^3/uL (4.3-11.0)
[2018-11-27 05:12] LABS: ALANINE AMINOTRANSFERASE 8 U/L (0-55); ALBUMIN 3.6 GM/DL (3.2-4.5); ALKALINE PHOSPHATASE 60 U/L (40-136); BILIRUBIN,TOTAL 0.3 MG/DL (0.1-1.0); BUN/CREATININE RATIO 20; CALCIUM 8.9 MG/DL (8.5-10.1); CARBON DIOXIDE 26 MMOL/L (21-32); CHLORIDE 106 MMOL/L (98-107); GFR ESTIMATED > 60; GLUCOSE 99 MG/DL (70-105); POTASSIUM 3.4 MMOL/L (3.6-5.0); SODIUM 145 MMOL/L (135-145); TOTAL PROTEIN 6.4 GM/DL (6.4-8.2)
[2018-11-27] MEDS: fentaNYL INJECTION 100 MCG/2 ML AMP IVP PRN ×2 (05:29→07:50)
[2018-11-27] MEDS: NS IV 1000 ML 1,000 ML IV SCH ×3 (06:25→21:55)
[2018-11-27] MEDS: PANTOPRAZOLE 40 MG (PROTONIX) VIAL IV SCH (07:53)
[2018-11-27 08:00] VITALS: BP 136/78
[2018-11-27] MEDS: morphine INJ 4 MG/ML 1 ML (VIAL/SYRINGE) IV PRN ×4 (10:25→17:51)
[2018-11-27 12:00] VITALS: BP 159/74
--- NOTE | 2018-11-27 14:35 | Progress Note - Surgery ---
Subjective Date Seen by a Provider: Nov 27, 2018 Time Seen by a Provider: 12:57 Subjective/Events-last exam patient still some slight abdominal discomfort. Colostomy with very minimal output. NG tube in place. Denies any fever sweats chills or chest pain. Focused Exam Lactate Level 11/25/18 18:45: Lactic Acid Level 2.20*H Objective Exam Vital Signs Date Time Temp Pulse Resp B/P (MAP) Pulse Ox O2 Delivery O2 Flow Rate FiO2 11/27/18 12:00 97.6 68 20 159/74 (102) 93 Room Air 11/27/18 08:00 98.1 75 20 136/78 (97) 90 Room Air 11/27/18 04:00 98.3 70 20 115/78 (90) 92 Room Air 11/26/18 23:16 98.2 152 18 112/66 (81) 89 Room Air 11/26/18 20:00 Room Air 11/26/18 19:23 98.0 82 18 107/57 (74) 89 Room Air 11/26/18 15:40 97.4 89 18 105/60 (75) 92 Room Air I & O 11/27/18 07:00 Intake Total 2000 ml Output Total 4375 ml Balance -2375 ml Capillary Refill : Less Than 3 Seconds General Appearance: No Apparent Distress HEENT: PERRL/EOMI Neck: Full Range of Motion, Normal Inspection, Non Tender Respiratory: Chest Non Tender, No Accessory Muscle Use, No Respiratory Distress Cardiovascular: Regular Rate, Rhythm Gastrointestinal: soft; No guarding, No rebound; tenderness, other (minimal liquid output) Extremity: Normal Capillary Refill Neurologic/Psychiatric: Alert, Oriented x3 Skin: Normal Color Lymphatic: No Adenopathy Results Lab Laboratory Tests 11/27/18 04:00: White Blood Count 7.6, Red Blood Count 4.18L, Hemoglobin 12.8L, Hematocrit 40, Mean Corpuscular Volume 95, Mean Corpuscular Hemoglobin 31, Mean Corpuscular Hemoglobin Concent 32, Red Cell Distribution Width 14.2, Platelet Count 253, Mean Platelet Volume 10.1, Neutrophils (%) (Auto) 69, Lymphocytes (%) (Auto) 23, Monocytes (%) (Auto) 8, Eosinophils (%) (Auto) 0, Basophils (%) (Auto) 0, Neutrophils # (Auto) 5.2, Lymphocytes # (Auto) 1.7, Monocytes # (Auto) 0.6, Eosinophils # (Auto) 0.0, Basophils # (Auto) 0.0, Sodium Level 145, Potassium Level 3.4L, Chloride Level 106, Carbon Dioxide Level 26, Anion Gap 13, Blood Urea Nitrogen 20H, Creatinine 1.00, Estimat Glomerular Filtration Rate > 60, BUN/Creatinine Ratio 20, Glucose Level 99, Calcium Level 8.9, Corrected Calcium 9.2, Total Bilirubin 0.3, Aspartate Amino Transf (AST/SGOT) 11, Alanine Aminotransferase (ALT/SGPT) 8, Alkaline Phosphatase 60, Total Protein 6.4, Albumin 3.6 Microbiology 11/25/18 Blood Culture - Preliminary, Resulted No growth Assessment/Plan Assessment/Plan Assessment/Plan PSBO. having some output from colostomy will get small bowel follow through no surgical intervention at this time continue conservative measures Clinical Quality Measures DVT/VTE Risk/Contraindication: Risk Factor Score Per Nursin RFS Level Per Nursing on Admit: 4+=Very High BLANQUITA FERNANDEZ DO Nov 27, 2018 14:35
--- NOTE | 2018-11-27 15:00 | Progress Note ---
Subjective Subjective/Events-last exam Patient have some cramping abdominal pain. Had a small mucus like BM with some blood. States that he is hungry. Review of Systems Date Seen by Provider: Nov 27, 2018 Time Seen by Provider: 12:00 Pulmonary: No Dyspnea, No Cough Cardiovascular: No: Chest Pain, Palpitations, Edema Gastrointestinal: Abdominal Pain; No: Nausea, Vomiting Genitourinary: No Dysuria, No Frequency Focused Exam Lactate Level 11/25/18 18:45: Lactic Acid Level 2.20*H Objective Exam Last Set of Vital Signs Vital Signs Date Time Temp Pulse Resp B/P (MAP) Pulse Ox O2 Delivery O2 Flow Rate FiO2 11/27/18 12:00 97.6 68 20 159/74 (102) 93 Room Air 11/27/18 04:00 Capillary Refill : Less Than 3 Seconds I&O Intake and Output 11/27/18 00:00 Intake Total 2000 ml Output Total 4175 ml Balance -2175 ml Intake IV Total 2000 ml Output Urine Total 325 ml Stool Total 150 ml Gastric Drainage Total 3350 ml Emesis 350 ml # Voids 1 # Emeses 2 General: Alert, Oriented X3, Cooperative, No Acute Distress HEENT: Other (NG in place with decreasing output) Lungs: Clear to Auscultation, Normal Air Movement Heart: Regular Rate, No Murmurs Abdomen: Normal Bowel Sounds, Soft, Other (mild ttp diffusely) Extremities: No Edema, No Tenderness/Swelling Results/Procedures Lab Laboratory Tests 11/27/18 04:00: White Blood Count 7.6, Red Blood Count 4.18L, Hemoglobin 12.8L, Hematocrit 40, Mean Corpuscular Volume 95, Mean Corpuscular Hemoglobin 31, Mean Corpuscular Hemoglobin Concent 32, Red Cell Distribution Width 14.2, Platelet Count 253, Mean Platelet Volume 10.1, Neutrophils (%) (Auto) 69, Lymphocytes (%) (Auto) 23, Monocytes (%) (Auto) 8, Eosinophils (%) (Auto) 0, Basophils (%) (Auto) 0, Neutrophils # (Auto) 5.2, Lymphocytes # (Auto) 1.7, Monocytes # (Auto) 0.6, Eosinophils # (Auto) 0.0, Basophils # (Auto) 0.0, Sodium Level 145, Potassium Level 3.4L, Chloride Level 106, Carbon Dioxide Level 26, Anion Gap 13, Blood Urea Nitrogen 20H, Creatinine 1.00, Estimat Glomerular Filtration Rate > 60, BUN/Creatinine Ratio 20, Glucose Level 99, Calcium Level 8.9, Corrected Calcium 9.2, Total Bilirubin 0.3, Aspartate Amino Transf (AST/SGOT) 11, Alanine Aminotransferase (ALT/SGPT) 8, Alkaline Phosphatase 60, Total Protein 6.4, Albumin 3.6 Microbiology 11/25/18 Blood Culture - Preliminary, Resulted No growth Assessment/Plan Assessment/Plan (1) Small bowel obstruction Status: Acute Assessment & Plan: - Dr Ceballos consulted and managing, NG placed today, patient to remain NPO until advanced by Dr Ceballos 11/27: NG with less output and having good output from colostomy, Discussed case with Dr Morales who is covering and will get small bowel follow thru today, possible d/c later today (2) Nausea & vomiting Status: Resolved Assessment & Plan: - Improved since NG placement Qualifiers: Qualified Codes: R11.2 - Nausea with vomiting, unspecified (3) Colostomy in place Status: Chronic (4) Debility Status: Acute Assessment & Plan: - PT consult (5) DVT prophylaxis Status: Acute Assessment & Plan: - Lovenox Clinical Quality Measures DVT/VTE Risk/Contraindication: Risk Factor Score Per Nursin RFS Level Per Nursing on Admit: 4+=Very High LATRICE POST MD Nov 27, 2018 15:00
[2018-11-27] MEDS ORDERED: DIATRIZOATE MEGLUM/SODIUM 37% 120 ML (GASTROGRAFIN) NG ONE (16:30)
[2018-11-27 17:05] VITALS: BP 150/76
--- NOTE | 2018-11-27 17:07 | Diagnostic Imaging Report ---
REASON FOR EXAM: Partial small bowel obstruction with left abdominal pain. TIME OF EXAM: 11/27/2018 4:23 PM COMPARISON: None. TECHNIQUE: Serial abdominal radiographs of the abdomen were obtained following oral administration of water-soluble contrast. FINDINGS: The electric golf cart repairer film demonstrates an ostomy with multiple dilated loops of small bowel. Anastomotic sutures are seen in the right abdomen. An enteric tube is seen projecting over the stomach. Small bowel follow-through was carried out for a total of two hours, with contrast seen in the colon after one hour. There are dilated loops of bowel but no complete obstruction is seen. Transit time is within normal limits. IMPRESSION: 1. Dilated loops of small bowel with normal transit time to the colon. Dictated by: Dictated on workstation # [id number]
[2018-11-27] MEDS ORDERED: NON-FORMULARY MEDICATION 1 EA EA (Hydrocodone/Acetaminophen (Hydrocodone-Acetamin 5-325 mg PO PRN (18:15)
[2018-11-27] MEDS ORDERED: ONDANSETRON 4 MG (ZOFRAN) ORAL DISSOLVE TAB PO PRN (18:15)
[2018-11-27 20:00] VITALS: BP 127/72
[2018-11-27] MEDS ORDERED: NON-FORMULARY MEDICATION 1 EA EA (Mirtazapine 15 MG) PO SCH (21:00)
--- NOTE | 2018-11-27 21:00 | NUR ---
PT REFUSED TO LET THIS RN RE-CONNECT HIS IV FLUIDS, PT STATES HE IS DRINKING PLENTY OF WATER AND DOES NOT NEED IT THAT HE WILL BE DISCHARGING TOMORROW ANYWAYS. IV FLUIDS LEFT UNCONNECTED.
[2018-11-27] MEDS: morphine ER 15 MG (MS CONTIN) TAB PO SCH (21:47)
[2018-11-27] MEDS: DIVALPROEX 250 MG DELAYED RELEASE (DEPAKOTE) TAB PO SCH (21:47)
[2018-11-28] VITALS: BP 121/63
[2018-11-28 04:00] VITALS: BP 134/73
[2018-11-28] MEDS: NS IV 1000 ML 1,000 ML IV SCH (05:30)
[2018-11-28 05:35] LABS: BASOPHILS % (AUTO) 0 % (0-10); EOSINOPHILS # (AUTO) 0.2 10^3/uL (0.0-0.3); EOSINOPHILS % (AUTO) 3 % (0-10); HEMATOCRIT 36 % (40-54); HEMOGLOBIN 11.5 G/DL (13.3-17.7); LYMPHOCYTES % (AUTO) 34 % (12-44); MEAN CORPUSCULAR HEMOGLOBIN 30 PG (25-34); MEAN CORPUSCULAR HGB CONC 32 G/DL (32-36); MEAN CORPUSCULAR VOLUME 94 FL (80-99); MEAN PLATELET VOLUME 9.7 FL (7.4-10.4); MONOCYTES # (AUTO) 0.5 X 10^3 (0.0-1.0); MONOCYTES % (AUTO) 8 % (0-12); NEUTROPHILS # (AUTO) 3.3 X 10^3 (1.8-7.8); NEUTROPHILS % (AUTO) 55 % (42-75); PLATELET COUNT 189 10^3/uL (130-400); RED CELL DISTRIBUTION WIDTH 13.8 % (10.0-14.5); WHITE BLOOD COUNT 5.9 10^3/uL (4.3-11.0)
[2018-11-28 05:53] LABS: BUN/CREATININE RATIO 16; CALCIUM 8.7 MG/DL (8.5-10.1); CARBON DIOXIDE 23 MMOL/L (21-32); CHLORIDE 106 MMOL/L (98-107); CREATININE SERUM 0.91 MG/DL (0.60-1.30); GFR ESTIMATED > 60; GLUCOSE 82 MG/DL (70-105); POTASSIUM 3.3 MMOL/L (3.6-5.0); SODIUM 141 MMOL/L (135-145)
[2018-11-28] MEDS ORDERED: KCL 20 MEQ TAB (K-DUR) PO NR (07:09)
[2018-11-28] MEDS ORDERED: DICYCLOMINE 10 MG (BENTYL) CAP PO PRN (07:15)
[2018-11-28] MEDS ORDERED: MULTIVIT W/MINERALS TAB (THERAGRAN M) PO SCH (07:22)
[2018-11-28] MEDS: DIVALPROEX 250 MG DELAYED RELEASE (DEPAKOTE) TAB PO SCH (07:45)
[2018-11-28] MEDS: morphine ER 15 MG (MS CONTIN) TAB PO SCH (07:46)
[2018-11-28 08:00] VITALS: BP 124/59
[2018-11-28] MEDS ORDERED: [UNRECOGNIZED DRUG - OTHER] PO SCH (09:00)
[2018-11-28] MEDS ORDERED: IRON PS CMPLX PO SCH (09:00)
[2018-11-28] MEDS ORDERED: MELOXICAM 7.5 MG (MOBIC) TABLET PO SCH (09:00)
[2018-11-28] MEDS ORDERED: VIT B12 PO SCH (09:00)
[2018-11-28] MEDS ORDERED: MAGNESIUM OXIDE (MAG-OX)400 MG TAB PO SCH (09:00)
[2018-11-28] MEDS ORDERED: PANTOPRAZOLE 40 MG (PROTONIX) TAB PO SCH (09:00)
--- NOTE | 2018-11-28 09:09 | Progress Note - Surgery ---
Subjective Date Seen by a Provider: Nov 28, 2018 Time Seen by a Provider: 08:56 Subjective/Events-last exam patient feeling good. passing stool through colostomy, tolerating liquids. denies n/v fever sweats chills shortness of breath or chest pain. not having any abdominal pain. wanting to go home. small bowel follow through no obstruction Focused Exam Lactate Level 11/25/18 18:45: Lactic Acid Level 2.20*H Objective Exam Vital Signs Date Time Temp Pulse Resp B/P (MAP) Pulse Ox O2 Delivery O2 Flow Rate FiO2 11/28/18 08:00 98.4 7 18 124/59 (80) 93 Room Air 11/28/18 04:00 98.0 60 14 134/73 (93) 92 Room Air 11/28/18 00:00 98.4 62 20 121/63 (82) 93 Room Air 11/27/18 20:00 Room Air 11/27/18 20:00 97.9 71 20 127/72 (90) 93 Room Air 11/27/18 17:05 97.7 72 18 150/76 (100) 92 Room Air 11/27/18 12:00 97.6 68 20 159/74 (102) 93 Room Air I & O 11/28/18 07:00 Intake Total 1290 ml Output Total 3700 ml Balance -2410 ml Capillary Refill : Less Than 3 Seconds General Appearance: No Apparent Distress HEENT: PERRL/EOMI Neck: Full Range of Motion, Normal Inspection, Non Tender Respiratory: Chest Non Tender, No Accessory Muscle Use, No Respiratory Distress Cardiovascular: Regular Rate, Rhythm Gastrointestinal: non tender, soft; No guarding, No rebound; other (ostomy + output) Extremity: Normal Capillary Refill Neurologic/Psychiatric: Alert, Oriented x3 Skin: Normal Color Lymphatic: No Adenopathy Results Lab Laboratory Tests 11/28/18 05:12: White Blood Count 5.9, Red Blood Count 3.78L, Hemoglobin 11.5L, Hematocrit 36L, Mean Corpuscular Volume 94, Mean Corpuscular Hemoglobin 30, Mean Corpuscular Hemoglobin Concent 32, Red Cell Distribution Width 13.8, Platelet Count 189, Mean Platelet Volume 9.7, Neutrophils (%) (Auto) 55, Lymphocytes (%) (Auto) 34, Monocytes (%) (Auto) 8, Eosinophils (%) (Auto) 3, Basophils (%) (Auto) 0, Neutrophils # (Auto) 3.3, Lymphocytes # (Auto) 2.0, Monocytes # (Auto) 0.5, Eosinophils # (Auto) 0.2, Basophils # (Auto) 0.0, Sodium Level 141, Potassium Level 3.3L, Chloride Level 106, Carbon Dioxide Level 23, Anion Gap 12, Blood Urea Nitrogen 15, Creatinine 0.91, Estimat Glomerular Filtration Rate > 60, BUN/Creatinine Ratio 16, Glucose Level 82, Calcium Level 8.7 Microbiology 11/25/18 Blood Culture - Preliminary, Resulted No growth Assessment/Plan Assessment/Plan Assessment/Plan PSBO. output from colostomy will get small bowel follow through tolerating liquids wanting to go home, ok to dc, patient instructed to slowly advance diet Clinical Quality Measures DVT/VTE Risk/Contraindication: Risk Factor Score Per Nursin RFS Level Per Nursing on Admit: 4+=Very High BLANQUITA FERNANDEZ DO Nov 28, 2018 09:09
--- NOTE | 2018-11-28 09:53 | Discharge Summary ---
Diagnosis/Chief Complaint Date of Admission Nov 25, 2018 at 19:10 Date of Discharge 11/28/2018 Admission Diagnosis Admission Diagnosis See problem list Discharge Diagnosis See Below Problems/Diagnosis: (1) Small bowel obstruction Assessment & Plan: - Dr Ceballos consulted and managing, NG placed today, patient to remain NPO until advanced by Dr Ceballos 11/27: NG with less output and having good output from colostomy, Discussed case with Dr Morales who is covering and will get small bowel follow thru today, possible d/c later today 11/28: Normal Small Bowel follow thru, Continue CLD at home for several days, discussed the risk of opiates and the slowing of the bowel Status: Acute (2) Nausea & vomiting Assessment & Plan: - Improved since NG placement Qualifiers: Qualified Codes: R11.2 - Nausea with vomiting, unspecified Status: Resolved Resolution Date/Time: 11/27/18 @ 14:59 (3) Colostomy in place Status: Chronic (4) Debility Assessment & Plan: - PT consult Status: Acute (5) DVT prophylaxis Assessment & Plan: - Lovenox Status: Acute Chief Complaint/HPI Chief Complaint/HPI 63 yo M with extensive h/o abdominal surgeries that presents with increasing vomiting and abdominal pain. states that for the last few days he has been having more pain. They have been watching his colostomy output because he has had a SBO several years ago. She states that he was still having good output until the day of admission. Denies any blood in stool or vomit. + fatigue and c hills. Denies taking a temperature. He had a partial colotomy after ischemic bowel in 2017. NG tube was place this AM and patient is resting comfortably after ativan dose Discharge Summary-Simple/Stand Consultations Dr Morales: General Surgery Discharge Physical Examination Allergies: Coded Allergies: oxycodone (Verified Allergy, Intermediate, HIVES, 04/18/17) Sulfa (Sulfonamide Antibiotics) (Verified Allergy, Unknown, 04/08/17) codeine (Verified Allergy, Unknown, 04/08/17) Uncoded Allergies: PCn (Allergy, Intermediate, 04/08/17) Vitals & I&Os Vital Sign - Last 12Hours Date Time Temp Pulse Resp B/P (MAP) Pulse Ox O2 Delivery O2 Flow Rate FiO2 11/28/18 08:00 98.4 7 18 124/59 (80) 93 Room Air 11/27/18 04:00 Intake and Output 11/28/18 00:00 Intake Total 1190 ml Output Total 2950 ml Balance -1760 ml General Appearance: Alert, Oriented X3, Cooperative, No Acute Distress HEENT: Mucous Memb Moist/[place] Respiratory: Clear to Auscultation, Normal Air Movement Cardiovascular: Regular Rate, No Murmurs Abdominal: Soft, Other (Colostomy with good output) Extremities: No Edema, No Tenderness/Swelling Skin: No Rashes, No Breakdown Neuro: Normal Speech, Sensation Intact, Cranial Nerves 3-12 NL Psych/Mental Status: Mental Status NL, Mood NL Hospital Course Was the Problem List Reviewed?: Yes See final discharge diagnosis. Discussion & Recommendations 63 yo M with extensive abdominal surgical history that presented with SBO. Patient improved once NG was placed and he remained NPO. He had good output from colostomy on day 2 and was then started on CLD after normal small bowel follow thru. Will have close f.u with PCP. Discharge Condition at discharge stable Instructions to patient/family Please see electronic discharge instructions given to patient. Discharge Medications Reviewed and agree with Discharge Medication list on patient's Discharge Instruction sheet Clinical Quality Measures DVT/VTE Risk/Contraindication: Risk Factor Score Per Nursin RFS Level Per Nursing on Admit: 4+=Very High Copy Copies To 1: LESA URBINA MD, HOLLY R MD Nov 28, 2018 09:53
--- NOTE | 2018-11-28 09:55 | Discharge Instructions ---
Discharge [facility] Discharge Medications New, Converted or Re-Newed RX: Other (No new scripts) Continued Medications: Citalopram Hydrobromide (Citalopram HBr) 20 Mg Tablet 20 MG PO BID, TAB Dicyclomine HCl (Dicyclomine HCl) 20 Mg Tablet 5-10 MG PO BID PRN for CRAMPS, TAB Divalproex Sodium (Divalproex Sodium) 250 Mg Tablet.dr 250 MG PO BID, TAB Iron Ps Cmplx/Vit B12/FA (Poly-Iron 150 Forte Capsule) 1 Each Capsule 150 MG PO DAILY, CAP LAST FILLED #30 4-2-19 Magnesium Oxide (Magnesium Oxide) 400 Mg Tablet 400 MG PO DAILY, TAB Meloxicam (Meloxicam) 7.5 Mg Tablet 7.5 MG PO DAILY, TAB Mirtazapine (Mirtazapine) 15 Mg Tablet 15 MG PO HS, TAB Morphine Sulfate (Morphine Sulfate ER) 15 Mg Tablet.er 15 MG PO BID, TAB Mv-Mn/FA/Coq10/Lycopene/Lutein (Theragran-M Premier 50+ Caplet) 1 Each Tablet 1 TAB PO DAILY, TAB Ondansetron (Ondansetron Odt) 4 Mg Tab.rapdis 4 MG PO Q8H PRN for NAUSEA/VOMITING-1ST LINE, TAB Pantoprazole Sodium (Pantoprazole Sodium) 40 Mg Tablet.dr 40 MG PO DAILY, TAB Discontinued Medications: Hydrocodone/Acetaminophen (Hydrocodone-Acetamin 5-325 mg) 1 Each Tablet 1 TAB PO Q6H PRN for PAIN-MODERATE, TAB Patient Instructions Goal/Follow Up Appt: You will be called on Thursday with f.u with Dr Garcia Activity & Diet Discharge Diet: Liquid Diet Activity as Tolerated: Yes Copy Copies To 1: LESA GARCIA MD, HOLLY R MD Nov 28, 2018 09:55
[2018-11-28 13:38] VITALS: BP 124/59
[2018-11-28] MEDS ORDERED: MIRTAZAPINE 15 MG (REMERON) TAB PO SCH (21:00)
== END 2018-11-28 13:40 | disposition home or self-care (01) | DRG 390 ==
LOC: EDUNIT# 17:14 → ER FS 17:15 → 4TH 19:10
PROVIDERS: ADMIT Family Medicine; ATTEND Family Medicine
PROC: 0D9670Z Drainage of Stomach with Drainage Device, Via Natural or Artificial Opening (ICD-10-PCS; principal; 2018-11-26)
DX: K56.600 Partial intestinal obstruction, unspecified as to cause (principal); I10 Essential (primary) hypertension; K21.9 Gastro-esophageal reflux disease without esophagitis; Z93.3 Colostomy status; R53.81 Other malaise; F17.210 Nicotine dependence, cigarettes, uncomplicated; F17.290 Nicotine dependence, other tobacco product, uncomplicated; Z86.73 Personal history of transient ischemic attack (TIA), and cerebral infarction without residual deficits; Z88.2 Allergy status to sulfonamides; Z88.5 Allergy status to narcotic agent
CPT/HCPCS: 36415; 71046; 74019; 74177; 74250; 80048; 80053; 81000; 82553; 83605; 83690; 84484; 85007; 85025; 85027; 87040; 93005; 96361; 96374; 96375; 96376

== ENCOUNTER 2019-02-08 22:17 | Inpatient (IN) | payer BC ==
[~2019-02-08] VITALS: Ht 167.7 cm; Wt 69.3 kg
[~2019-02-08 22:17] MED LIST changes: +CITA20TA9 PO; +DICY20TA10 PO; +DIVA-74 PO; +HYDR-3812 PO; +IRON1CAP21 PO; +MORP-33 PO; +ONDA4TAB11 PO; -TIZA4TAB3 PO; +TIZA4TAB4 PO
[2019-02-08] MEDS ORDERED: ONDANSETRON 4 MG/2 ML (SDV) Z0FRAN IVP STA (22:37)
[2019-02-08] MEDS ORDERED: KETOROLAC 30 MG/ML VIAL IVP STA (22:37)
[2019-02-08] MEDS ORDERED: NS IV 1000 ML 1,000 ML IV SCH (22:45)
[2019-02-08] MEDS ORDERED: CATHETER FLUSH 10 ML SYR IV PRN (22:45)
[2019-02-08] MEDS ORDERED: NS 100 ML (IVPB) BAG IV ONE (22:45)
[2019-02-08] MEDS ORDERED: HOLD METFORMIN - RECEIVED CONTRAST 20 ML VIAL IV SCH (22:45)
[2019-02-08] MEDS ORDERED: IOHEXOL 350 MG/ML 100 ML (OMNIPAQUE 350) VIAL IV ONE (22:45)
[2019-02-08 22:52] LABS: HEMATOCRIT 43 % (40-54); HEMOGLOBIN 13.6 G/DL (13.3-17.7); MEAN CORPUSCULAR HEMOGLOBIN 29 PG (25-34); WHITE BLOOD COUNT 14.4 10^3/uL (4.3-11.0)
[2019-02-08 22:53] LABS: BASOPHILS % (AUTO) 0 % (0-10); EOSINOPHILS # (AUTO) 0.1 10^3/uL (0.0-0.3); EOSINOPHILS % (AUTO) 1 % (0-10); LYMPHOCYTES # (AUTO) 1.8 X 10^3 (1.0-4.0); LYMPHOCYTES % (AUTO) 13 % (12-44); MEAN CORPUSCULAR HGB CONC 32 G/DL (32-36); MEAN CORPUSCULAR VOLUME 90 FL (80-99); MEAN PLATELET VOLUME 9.4 FL (7.4-10.4); MONOCYTES # (AUTO) 0.8 X 10^3 (0.0-1.0); MONOCYTES % (AUTO) 5 % (0-12); NEUTROPHILS # (AUTO) 11.6 X 10^3 (1.8-7.8); NEUTROPHILS % (AUTO) 81 % (42-75); PLATELET COUNT 519 10^3/uL (130-400); RED CELL DISTRIBUTION WIDTH 14.8 % (10.0-14.5)
[2019-02-08 23:00] LABS: ALANINE AMINOTRANSFERASE 9 U/L (0-55); ALBUMIN 4.1 GM/DL (3.2-4.5); ALKALINE PHOSPHATASE 72 U/L (40-136); BILIRUBIN,TOTAL 0.2 MG/DL (0.1-1.0); BUN/CREATININE RATIO 14; CALCIUM 10.5 MG/DL (8.5-10.1); CARBON DIOXIDE 26 MMOL/L (21-32); CHLORIDE 97 MMOL/L (98-107); CREATININE SERUM 1.04 MG/DL (0.60-1.30); GFR ESTIMATED > 60; GLUCOSE 152 MG/DL (70-105); SODIUM 140 MMOL/L (135-145); TOTAL PROTEIN 8.7 GM/DL (6.4-8.2)
[2019-02-08] MEDS ORDERED: HYDROmorphone 2 MG/ML VIAL (DILAUDID) IV ONE (23:00)
[2019-02-08 23:01] LABS: LIPASE 47 U/L (8-78)
--- NOTE | 2019-02-08 23:04 | ED Abdominal Pain ---
General Chief Complaint: Abdominal/GI Problems Stated Complaint: ABD PAIN, VOMITING Source of Information: Patient, Spouse History of Present Illness Date Seen by Provider: Feb 08, 2019 Time Seen by Provider: 22:36 Initial Comments 63-year-old male presenting with complaints of diffuse abdominal pain with nausea and vomiting. He states this started yesterday and has gotten much worse throughout the day. He has had repeated episodes of vomiting. He has diffuse pain that is worse with palpation. He has had decreased output from his colostomy bag. He has had similar problems in the past with small bowel obstru ctions. He has had multiple surgeries on his abdomen in the past and has extensive scar tissue. He has nausea and vomiting was not improved at home with taking Zofran. He has not had any blood in his colostomy output. He has had no fever or chills. He has had no change in his urine output. Allergies and Home Medications Allergies Coded Allergies: oxycodone (Verified Allergy, Intermediate, HIVES, 04/18/17) Sulfa (Sulfonamide Antibiotics) (Verified Allergy, Unknown, 04/08/17) codeine (Verified Allergy, Unknown, 04/08/17) Uncoded Allergies: PCn (Allergy, Intermediate, 04/08/17) Home Medications Citalopram Hydrobromide 20 Mg Tablet, 20 MG PO BID, (Reported) Dicyclomine HCl 20 Mg Tablet, 5-10 MG PO BID PRN for CRAMPS, (Reported) Divalproex Sodium 250 Mg Tablet.dr, 250 MG PO BID, (Reported) Iron Ps Cmplx/Vit B12/FA 1 Each Capsule, 150 MG PO DAILY, (Reported) LAST FILLED #30 08-17-18 Magnesium Oxide 400 Mg Tablet, 400 MG PO DAILY, (Reported) Meloxicam 7.5 Mg Tablet, 7.5 MG PO DAILY, (Reported) Mirtazapine 15 Mg Tablet, 15 MG PO HS, (Reported) Morphine Sulfate 15 Mg Tablet.er, 15 MG PO BID, (Reported) Mv-Mn/FA/Coq10/Lycopene/Lutein 1 Each Tablet, 1 TAB PO DAILY, (Reported) Ondansetron 4 Mg Tab.rapdis, 4 MG PO Q8H PRN for NAUSEA/VOMITING-1ST LINE, (Reported) Pantoprazole Sodium 40 Mg Tablet.dr, 40 MG PO DAILY, (Reported) Patient Home Medication List Home Medication List Reviewed: Yes Review of Systems Review of Systems Constitutional: No chills, No fever; malaise EENTM: No Symptoms Reported Respiratory: No Symptoms Reported Cardiovascular: No Symptoms Reported Gastrointestinal: Abdomen Distended, Abdominal Pain, Nausea, Vomiting, Other (decreased output from colostomy today) Genitourinary: No Symptoms Reported Musculoskeletal: no symptoms reported Skin: no symptoms reported Psychiatric/Neurological: Anxiety Past Jwvrqvf-Tkgexq-Ssdcem Hx Past Med/Social Hx: Reviewed Nursing Past Med/Soc Hx Patient Social History Type Used: Cigarettes, Electronic/Vapor 2nd Hand Smoke Exposure: No Recent Foreign Travel: No Contact w/Someone Who Travel: No Recent Hopitalizations: No Immunizations Up To Date Date of Influenza Vaccine: Feb 08, 2018 Seasonal Allergies Seasonal Allergies: No Past Medical History Surgeries: Yes (AAA rupture repair, colostomy, wound debriedment, femoral emboloectomy) Appendectomy, Bowel Surgery Respiratory: Yes COPD Aneurysm Neurological: Yes (Encephalopathy, CVD) Genitourinary: Yes (Retention) Gastrointestinal: Yes (Colostomy d/t ischemic colitis) Musculoskeletal: Yes (Debility, extreme weakness) Endocrine: No HEENT: No Cancer: No Psychosocial: Yes Anxiety, Depression Integumentary: Yes (abdomen, sacrum, HX stage IV) Recent Skin Changes Blood Disorders: Yes (Chronic Anemia) Family Medical History Cardiovascular disease 19 FATHER Completed stroke 19 FATHER Diabetes mellitus 19 MOTHER Glaucoma 19 MOTHER Hypertension 19 FATHER 19 MOTHER G8 BROTHER Myocardial infarction 19 FATHER No Pertinent Family Hx Physical Exam Vital Signs Vital Signs - First Documented 02/08/19 22:20 Temp 35.5 Pulse 111 Resp 18 B/P (MAP) 131/89 (103) Pulse Ox 94 O2 Delivery Room Air Capillary Refill : Height/Weight/BMI Height: 5'6.00" Weight: 164lbs. 0.0oz. 74.915219ft; 26.5 BMI Method:Stated General Appearance: severe distress HEENT: PERRL/EOMI, pharynx normal Neck: non-tender, supple Respiratory: chest non-tender, lungs clear, normal breath sounds Cardiovascular: normal peripheral pulses, regular rate, rhythm Gastrointestinal: abnormal bowel sounds (hypoactive and tympanic), distended, tenderness (diffuse) Extremities: normal range of motion, non-tender, normal inspection Neurologic/Psychiatric: alert, oriented x 3 Skin: warm/dry, pallor Progress/Results/Core Measures Results/Orders Lab Results Laboratory Tests Test 02/08/19 22:32 Range/Units White Blood Count 14.4 H 4.3-11.0 10^3/uL Red Blood Count 4.73 4.35-5.85 10^6/uL Hemoglobin 13.6 13.3-17.7 G/DL Hematocrit 43 40-54 % Mean Corpuscular Volume 90 80-99 FL Mean Corpuscular Hemoglobin 29 25-34 PG Mean Corpuscular Hemoglobin Concent 32 32-36 G/DL Red Cell Distribution Width 14.8 H 10.0-14.5 % Platelet Count 519 H 130-400 10^3/uL Mean Platelet Volume 9.4 7.4-10.4 FL Neutrophils (%) (Auto) 81 H 42-75 % Lymphocytes (%) (Auto) 13 12-44 % Monocytes (%) (Auto) 5 0-12 % Eosinophils (%) (Auto) 1 0-10 % Basophils (%) (Auto) 0 0-10 % Neutrophils # (Auto) 11.6 H 1.8-7.8 X 10^3 Lymphocytes # (Auto) 1.8 1.0-4.0 X 10^3 Monocytes # (Auto) 0.8 0.0-1.0 X 10^3 Eosinophils # (Auto) 0.1 0.0-0.3 10^3/uL Basophils # (Auto) 0.0 0.0-0.1 10^3/uL Neutrophils % (Manual) 61 % Lymphocytes % (Manual) 16 % Monocytes % (Manual) 4 % Eosinophils % (Manual) 2 % Band Neutrophils 17 % Blood Morphology Comment NORMAL Sodium Level 140 135-145 MMOL/L Potassium Level 4.0 3.6-5.0 MMOL/L Chloride Level 97 L 98-107 MMOL/L Carbon Dioxide Level 26 21-32 MMOL/L Anion Gap 17 H 5-14 MMOL/L Blood Urea Nitrogen 15 7-18 MG/DL Creatinine 1.04 0.60-1.30 MG/DL Estimat Glomerular Filtration Rate > 60 BUN/Creatinine Ratio 14 Glucose Level 152 H 70-105 MG/DL Calcium Level 10.5 H 8.5-10.1 MG/DL Corrected Calcium 10.4 H 8.5-10.1 MG/DL Total Bilirubin 0.2 0.1-1.0 MG/DL Aspartate Amino Transf (AST/SGOT) 10 5-34 U/L Alanine Aminotransferase (ALT/SGPT) 9 0-55 U/L Alkaline Phosphatase 72 40-136 U/L Total Protein 8.7 H 6.4-8.2 GM/DL Albumin 4.1 3.2-4.5 GM/DL Lipase 47 8-78 U/L Serum Alcohol < 10 <10 MG/DL My Orders Orders - RUPA SIMPSON MD Comprehensive Metabolic Panel (02/08/19 22:36) Lipase (02/08/19 22:36) Ua Culture If Indicated (02/08/19 22:36) Ed Iv/Invasive Line Start (02/08/19 22:36) Cbc With Automated Diff (02/08/19 22:36) Alcohol (02/08/19 22:36) Drug Screen Stat (Urine) (02/08/19 22:36) Ns Iv 1000 Ml (Sodium Chloride 0.9%) (02/08/19 22:45) Ondansetron Injection (Zofran Injectio (02/08/19 22:37) Ketorolac Injection (Toradol Injection) (02/08/19 22:37) Ct Abdomen/Pelvis W (02/08/19 22:39) Iohexol Injection (Omnipaque 350 Mg/Ml 1 (02/08/19 22:45) Received Contrast (Hold Metformin- Contr (02/08/19 22:45) Sodium Chloride Flush (Catheter Flush Sy (02/08/19 22:45) Ns (Ivpb) (Sodium Chloride 0.9% Ivpb Bag (02/08/19 22:45) Hydromorphone Injection (Dilaudid Inject (02/08/19 23:00) Manual Differential (02/08/19 22:32) Oxygen-Administer 07,19 (02/08/19 23:42) Ng Tube Insert & Assessment (02/08/19 23:59) Ng Tube To Low Wall Suction (02/08/19 23:59) Medications Given in ED Current Medications Medications Dose Ordered Sig/Yanira Route Start Time Stop Time Status Last Admin Dose Admin Hydromorphone HCl 1 mg ONCE ONCE IV 02/08/19 23:00 02/08/19 23:01 DC 02/08/19 22:59 1 MG Iohexol 100 ml ONCE ONCE IV 02/08/19 22:45 02/08/19 22:46 DC 02/08/19 23:23 100 ML Sodium Chloride 10 ml NEEDED PRN IV 02/08/19 22:45 02/08/19 23:23 10 ML Sodium Chloride 100 ml ONCE ONCE IV 02/08/19 22:45 02/08/19 22:46 DC 02/08/19 23:23 100 ML Vital Signs/I&O 02/08/19 22:20 Temp 35.5 Pulse 111 Resp 18 B/P (MAP) 131/89 (103) Pulse Ox 94 O2 Delivery Room Air Progress Progress Note #1: Progress Note Check labs and CT scan of abdomen/pelvis to evaluate for recurrent small bowel obstruction. He states that the Dilaudid has helped him the most in the past when he has been evaluated for similar pain. Will give IVF with Zofran, Toradol and Dilaudid. Progress Note #2: Progress Note CT scan does demonstrate a recurrent small bowel obstruction. Labs appear stable other than he has the elevated white blood cell count likely due to stress of repeated episodes of vomiting that his service sign of infection on his CT. Will discuss with Dr. Palacio covering for [facility] and with surgeon avionics systems repairer about the patient. Order an NG for his obstruction to trying decompresses bowel and help alleviate his pain as well as nausea and vomiting. Diagnostic Imaging Diagonstic Imaging: CT Plain Films/CT/US/NM/MRI: abdomen, pelvis Comments Recurrent small bowel obstruction seen on CT scan of abdomen and pelvis Reviewed: Reviewed Night [facility] Study Departure Communication (Admissions) Time/Spoke to Admitting Phy: 00:[address] Palacio and will admit to the [facility] service. Will consult surgery as he has seen them in the past and consult as they have followed along with the medical service. He has responded to medical treatment previously and hopefully will again with this admit but would prefer to have surgery for follow-up on just in case more intervention was needed. Time/Spoke to Consulting Phy: 00:[address] Morales as the surgeon avionics systems repairer about the patient and consult. Dr. Ceballos has seen him the last few admissions. Will have Dr. Ceballos see him in the am. Impression Primary Impression: Small bowel obstruction due to postoperative adhesions Disposition: ADMITTED INPATIENT Condition: Stable Admissions Decision to Admit Reason: Admit from ER (General) Decision to Admit/Date: Feb 09, 2019 Time/Decision to Admit Time: 00:03 Departure-Patient Inst. Referrals: LESA URBINA MD (PCP/Family) Primary Care Physician RUPA SIMPSON MD Feb 08, 2019 23:04
[2019-02-08 23:07] LABS: BAND NEUTROPHILS 17 %; EOSINOPHILS % (MANUAL) 2 %; LYMPHOCYTES % (MANUAL) 16 %; MONOCYTES % (MANUAL) 4 %; NEUTROPHILS % (MANUAL) 61 %; RBC MORPH NORMAL
--- NOTE | 2019-02-09 00:12 | NUR ---
placed pt on at 2 liters per nc.
[2019-02-09] MEDS ORDERED: METOCLOPRAMIDE INJ 10 MG/2 ML (REGLAN) IVP STA (00:28)
[2019-02-09] MEDS ORDERED: LORazepam INJ 2 MG/ML (ATIVAN) VIAL IVP ONE (00:30)
[2019-02-09] MEDS ORDERED: LORazepam INJ 2 MG/ML (ATIVAN) VIAL IVP STA (00:36)
[2019-02-09] MEDS: 1/2 NS W/KCL 20 MEQ/L 1,000 ML IV SCH ×5 (00:49→15:12)
--- NOTE | 2019-02-09 01:04 | NUR ---
attempted to place ng tube 4 times and was not able to place then the pt stated he didnt want it. pt. was unable to give a urine sample.
--- NOTE | 2019-02-09 02:20 | NUR ---
PIOTR BRISCOE admitted to room 427-1, with an admitting diagnosis of Small Bowel Obstruction, on 02/09/19 from [facility] ED via EMS, accompanied by EMS and family.PIOTR BRISCOE introduced to surroundings, call light, bed controls, phone, TV, temperature control, lights, meal times, smoking policy, visitor policy, side rail policy, bathrooms and showers. Patient Rights given to patient in the handbook. PIOTR BRISCOE verbalizes understanding that [facility] is not responsible for the loss or damage to any personal effects or valuables that are kept in the patients posession during their hospitalization.
[2019-02-09 02:41] VITALS: BP 124/79
[2019-02-09] MEDS ORDERED: ONDANSETRON 4 MG/2 ML (SDV) Z0FRAN IV PRN (03:15)
[2019-02-09] MEDS ORDERED: METOCLOPRAMIDE INJ 10 MG/2 ML (REGLAN) IV PRN (03:15)
[2019-02-09 04:00] VITALS: BP 136/78
[2019-02-09 05:11] LABS: BASOPHILS % (AUTO) 0 % (0-10); EOSINOPHILS % (AUTO) 1 % (0-10); HEMATOCRIT 40 % (40-54); HEMOGLOBIN 12.7 G/DL (13.3-17.7); LYMPHOCYTES # (AUTO) 0.8 X 10^3 (1.0-4.0); LYMPHOCYTES % (AUTO) 19 % (12-44); MEAN CORPUSCULAR HEMOGLOBIN 29 PG (25-34); MEAN CORPUSCULAR HGB CONC 32 G/DL (32-36); MEAN CORPUSCULAR VOLUME 89 FL (80-99); MEAN PLATELET VOLUME 9.4 FL (7.4-10.4); MONOCYTES # (AUTO) 0.2 X 10^3 (0.0-1.0); MONOCYTES % (AUTO) 5 % (0-12); NEUTROPHILS % (AUTO) 75 % (42-75); PLATELET COUNT 347 10^3/uL (130-400); RED CELL DISTRIBUTION WIDTH 15.1 % (10.0-14.5); WHITE BLOOD COUNT 3.9 10^3/uL (4.3-11.0)
[2019-02-09 05:39] LABS: ALANINE AMINOTRANSFERASE 11 U/L (0-55); ALBUMIN 3.8 GM/DL (3.2-4.5); ALKALINE PHOSPHATASE 59 U/L (40-136); BILIRUBIN,TOTAL 0.2 MG/DL (0.1-1.0); BUN/CREATININE RATIO 15; CARBON DIOXIDE 27 MMOL/L (21-32); CHLORIDE 100 MMOL/L (98-107); GFR ESTIMATED > 60; GLUCOSE 120 MG/DL (70-105); SODIUM 141 MMOL/L (135-145); TOTAL PROTEIN 7.7 GM/DL (6.4-8.2)
[2019-02-09] MEDS: HYDROmorphone 2 MG/ML VIAL (DILAUDID) IV PRN ×5 (05:56→21:15)
--- NOTE | 2019-02-09 06:01 | Diagnostic Imaging Report ---
PROCEDURE: CT abdomen and pelvis with contrast. TECHNIQUE: Multiple contiguous axial images were obtained through the abdomen and pelvis after administration of intravenous contrast. Auto Exposure Controls were utilized during the CT exam to meet ALARA standards for radiation dose reduction. INDICATION: Generalized abdominal pain. COMPARISON: 11/25/2018. FINDINGS: There is marked distention of the stomach and proximal small bowel. There is colostomy noted in the left lower abdomen. There has been resection of the distal colon. The proximal colon shows very little stool or gas. There is good opacification of aorta and abdominal vessels. There is mild aneurysmal dilatation of the distal aorta with surgical changes. Appearance has not changed significantly since previous exam. Liver appears normal. Bile ducts and gallbladder are normal. Pancreas and spleen are normal. Kidneys are normal. No intra-abdominal adenopathy. No free air or free fluid. IMPRESSION: 1. High-grade small bowel obstruction likely secondary to scarring within the pelvis. 2. Colostomy with left-sided colon resection. Dictated by: Dictated on workstation # [id number]
[2019-02-09 08:00] VITALS: BP 115/79
[2019-02-09] MEDS: fentaNYL INJECTION 100 MCG/2 ML AMP IV PRN ×3 (08:41→19:54)
[2019-02-09] MEDS ORDERED: METO10TA3 PO (09:22)
[2019-02-09] MEDS ORDERED: LACT10SO64 PO (09:22)
[2019-02-09] MEDS ORDERED: HYDR-3820 PO (09:22)
[2019-02-09] MEDS ORDERED: MORP-34 PO (09:22)
--- NOTE | 2019-02-09 10:18 | History & Physical-Hospitalist ---
History of Present Illness HPI/Chief Complaint CC: Small bowel obstruction HPI: This is a 63yoWM with a PMH of bowel obstructions and colostomy placement, who presented to the [facility] ER with nausea and vomiting for the past several days that actually improved a little bit yesterday and was able to eat breakfast but states became worsened, went to the [facility] ER found to have small bowel obstruction. Pt was placed on IV fluids, supportive care, NG tube was placed and provided pain medication and I did consult Dr. Ceballos who knows him well and he will see him in consultation. Pt appears to be very frail and declined overall. Source: family, old records Exam Limitations: clinical condition Date Seen 02/09/19 Time Seen by a Provider: 09:15 Attending Physician Mel Palacio Pankaj K MD Referring Physician Date of Admission Feb 09, 2019 at 00:03 Home Medications & Allergies Home Medications Reviewed patient Home Medication Reconciliation performed by pharmacy medication reconciliations semiconductor development technician and/or nursing. Patients Allergies have been reviewed. Allergies Allergies Coded Allergies oxycodone (Verified Allergy, Intermediate, HIVES, 04/18/17) Sulfa (Sulfonamide Antibiotics) (Verified Allergy, Unknown, 04/08/17) codeine (Verified Allergy, Unknown, 04/08/17) Uncoded Allergies PCn ( Allergy, Intermediate, 04/08/17) Past Dqihsar-Peupzp-Kaqykc Hx Past Med/Social Hx: Reviewed Nursing Past Med/Soc Hx, Reviewed and Corrections made Patient Social History Marrital Status: Employed/Student: retired Type Used: Cigarettes, Electronic/Vapor 2nd Hand Smoke Exposure: No Recent Foreign Travel: No Contact w/other who traveled: No Recent Hopitalizations: Yes (WAS RELEASED FROM [employer] ON .) Recent Infectious Disease Expo: No Immunizations Up To Date Date of Influenza Vaccine: Feb 08, 2018 Seasonal Allergies Seasonal Allergies: No Past Medical History Surgeries: Appendectomy, Bowel Surgery Cardiac: Aneurysm Gastrointestinal: Gastroesophageal Reflux, Obstructive Bowel, Chronic Constipa tion Psychosocial: Anxiety, Depression Skin/Integumentary: Recent Skin Changes History of Blood Disorders: Yes (Chronic Anemia) Family History Cardiovascular disease 19 FATHER Completed stroke 19 FATHER Diabetes mellitus 19 MOTHER Glaucoma 19 MOTHER Hypertension 19 FATHER 19 MOTHER G8 BROTHER Myocardial infarction 19 FATHER No Pertinent Family Hx Review of Systems Constitutional: see HPI Gastrointestinal: constipation, nausea, vomiting Physical Exam Physical Exam Vital Signs Vital Signs - First Documented 02/08/19 02/09/19 22:20 01:05 Temp 35.5 Pulse 111 Resp 18 B/P (MAP) 131/89 (103) Pulse Ox 94 O2 Delivery Room Air O2 Flow Rate 2.00 Capillary Refill : Less Than 3 Seconds Height, Weight, BMI Height: 5'6.00" Weight: 164lbs. 0.0oz. 74.357520xi; 12.83 BMI Method:Stated General Appearance: WD/WN, Chronically ill, Cachetic, Moderate Distress Eyes: Right Eye Normal Inspection, Right Eye PERRL HEENT: PERRL/EOMI, Normal ENT Inspection, Pharynx Normal, Moist Mucous Membranes Neck: Full Range of Motion, Normal Inspection, Non Tender Respiratory: Chest Non Tender, Lungs Clear, Normal Breath Sounds, No Accessory Muscle Use, No Respiratory Distress Cardiovascular: Regular Rate, Rhythm, No Edema, No Gallop, No JVD, No Murmur, Normal Peripheral Pulses Gastrointestinal: Normal Bowel Sounds, No Organomegaly, No Pulsatile Mass, Abn ormal Bowel Sounds, Distended Back: Normal Inspection, No CVA Tenderness, No Vertebral Tenderness Extremity: Normal Capillary Refill, Normal Inspection, Normal Range of Motion, Non Tender, No Calf Tenderness, No Pedal Edema Neurologic/Psychiatric: Alert, Oriented x3, No Motor/Sensory Deficits, Normal Mood/Affect Skin: Normal Color, Warm/Dry Lymphatic: No Adenopathy Results Results/Procedures Labs Laboratory Tests 02/08/19 22:32 02/09/19 04:50 Patient resulted labs reviewed. Assessment/Plan Admission Diagnosis Assessment: SBO Colostomy status GERD Debility Plan: Dr Ceballos appreciated [facility] Pain meds Supportive care NPO Admission Status: Inpatient Order (span 2 midnights) Reason for Inpatient Admission: SBO in colostomy patient Diagnosis/Problems Diagnosis/Problems (1) Small bowel obstruction Status: Acute (2) Colostomy in place Status: Chronic (3) Debility Status: Acute (4) Depression Status: Acute (5) Tobacco dependence Clinical Quality Measures DVT/VTE Risk/Contraindication: Risk Factor Score Per Nursin RFS Level Per Nursing on Admit: 4+=Very High MEL PALACIO DO Feb 09, 2019 10:18
[2019-02-09] MEDS: ENOXAPARIN 40 MG/0.4 ML (LOVENOX) SYR SC SCH (11:38)
[2019-02-09 12:00] VITALS: BP 104/72
[2019-02-09] MEDS: PROMETHAZINE INJ 25 MG/ML (PHENERGAN) AMP IVP PRN (15:09)
--- NOTE | 2019-02-09 16:18 | CONSULTATION REPORT ---
DATE OF SERVICE: 02/09/2019 ADMITTING PHYSICIAN: Mel Palacio DO ATTENDING PRIMARY CARE PHYSICIAN: Dr. Garcia. HISTORY OF PRESENT ILLNESS: The patient is a 63-year-old male who we have seen before in the past. We have initially seen him on 11/25/2018, for abdominal distention, nausea and vomiting. This gentleman has had a previous significant sized abdominal aortic aneurysm requiring open repair. He then developed a left-sided ischemic colitis requiring a left hemicolectomy and placement of an end colostomy. He had stated abdominal distention on that admission as well as some nausea. A CT scan was performed on that admission and was found to have distended stomach and loops of small bowel consistent with partial small-bowel obstruction. On this admission, he had similar symptoms. He reports that he ate dinner last night and then developed some abdominal distention as well as crampy pain and nausea. He has had an NG tube placed; however, there is minimal output. On examination today, his abdomen is nondistended and he does have a stool within his end colostomy. PAST MEDICAL HISTORY: Abdominal aortic aneurysm, hypertension, stroke at age 29, history of alcohol and tobacco abuse, gastroesophageal reflux disease. PAST SURGICAL HISTORY: Abdominal aortic aneurysm repair, left hemicolectomy and end colostomy. ALLERGIES: OXYCODONE, SULFA AND CODEINE. MEDICATIONS: Divalproex 250 mg b.i.d., fentanyl patch 100 mcg q.72 hours, hydrocodone p.r.n., iron 150 mg b.i.d., magnesium 400 mg daily, meloxicam 7.5 mg daily, mirtazapine 30 mg at bedtime, nicotine patch daily, Protonix 40 mg daily, and zinc oxide p.r.n. SOCIAL HISTORY: Previous smoke and alcohol. FAMILY HISTORY: Noncontributory. REVIEW OF SYSTEMS: Well-nourished male, currently guarded secondary to the nausea; however, he has not dry heaving nor having episodes of vomiting. No shortness of breath or difficulty in breathing. No chest pain, palpitations, diaphoresis. His end colostomy is functional with stool within the colostomy bag, which is new from this morning. No fever, chills, no recent inadvertent weight loss. All other review of systems negative. PHYSICAL EXAMINATION: CHEST: A few scattered rales and rhonchi bilaterally. HEART: Regular, no murmurs. EXTREMITIES: No lower extremity edema, negative Homans sign. HEENT: No scleral icterus. NECK: No cervical lymphadenopathy. ABDOMEN: Soft, nondistended. There is mild discomfort upon deep palpation. No peritoneal signs. His colostomy is functional with stool within the past 6 hours. SKIN: Warm, dry. VITAL SIGNS: Temperature 36.6, blood pressure 104/72, pulse 114, respirations 20, pulse ox 91% on 4 liters nasal cannula. LABORATORY DATA: WBC 3.9, hemoglobin 12.7, hematocrit 40, platelets 347. BUN 16, creatinine 1.10. ASSESSMENT AND PLAN: A 63-year-old male with recurrent episodes of nausea, vomiting and crampy abdominal pain. This may be secondary to chronic ischemic colitis due to his extensive history of smoking and peripheral vascular disease. At this time, we do not feel that he has any obstruction and once his nausea is under control we will remove the NG tube and start a clear liquid diet and advance from that point forward. We will also proceed with medical optimization with IV fluid hydration, volume status as well as perfusion status. Job ID: [id number] DocumentID: [id number] Dictated Date: 02/09/2019 14:40:56 News Reporter Date: 02/09/2019 16:18:15 Dictated By: ALEJANDRO BLANK MD
[2019-02-09 16:46] VITALS: BP 104/65
[2019-02-09 19:34] VITALS: BP 104/64
[2019-02-10] MEDS: 1/2 NS W/KCL 20 MEQ/L 1,000 ML IV SCH ×3 (00:13→17:22)
[2019-02-10] MEDS: fentaNYL INJECTION 100 MCG/2 ML AMP IV PRN ×5 (00:13→17:20)
[2019-02-10 00:55] VITALS: BP 84/53
[2019-02-10] MEDS: HYDROmorphone 2 MG/ML VIAL (DILAUDID) IV PRN ×4 (03:02→15:51)
[2019-02-10 04:00] VITALS: BP 129/59
[2019-02-10 06:43] LABS: BASOPHILS % (AUTO) 0 % (0-10); EOSINOPHILS % (AUTO) 0 % (0-10); HEMATOCRIT 34 % (40-54); HEMOGLOBIN 10.7 G/DL (13.3-17.7); LYMPHOCYTES # (AUTO) 1.6 X 10^3 (1.0-4.0); LYMPHOCYTES % (AUTO) 11 % (12-44); MEAN CORPUSCULAR HEMOGLOBIN 28 PG (25-34); MEAN CORPUSCULAR HGB CONC 32 G/DL (32-36); MEAN CORPUSCULAR VOLUME 88 FL (80-99); MEAN PLATELET VOLUME 9.7 FL (7.4-10.4); MONOCYTES # (AUTO) 0.8 X 10^3 (0.0-1.0); MONOCYTES % (AUTO) 5 % (0-12); NEUTROPHILS # (AUTO) 11.4 X 10^3 (1.8-7.8); NEUTROPHILS % (AUTO) 83 % (42-75); PLATELET COUNT 432 10^3/uL (130-400); RED CELL DISTRIBUTION WIDTH 15.2 % (10.0-14.5); WHITE BLOOD COUNT 13.8 10^3/uL (4.3-11.0)
[2019-02-10 07:09] LABS: ALANINE AMINOTRANSFERASE 8 U/L (0-55); ALBUMIN 3.5 GM/DL (3.2-4.5); ALKALINE PHOSPHATASE 67 U/L (40-136); BILIRUBIN,TOTAL 0.5 MG/DL (0.1-1.0); BUN/CREATININE RATIO 23; CALCIUM 9.3 MG/DL (8.5-10.1); CARBON DIOXIDE 29 MMOL/L (21-32); CHLORIDE 98 MMOL/L (98-107); CREATININE SERUM 1.17 MG/DL (0.60-1.30); GFR ESTIMATED > 60; GLUCOSE 99 MG/DL (70-105); POTASSIUM 4.3 MMOL/L (3.6-5.0); SODIUM 139 MMOL/L (135-145); TOTAL PROTEIN 7.4 GM/DL (6.4-8.2)
[2019-02-10 08:00] VITALS: BP 105/55
[2019-02-10] MEDS: PROMETHAZINE INJ 25 MG/ML (PHENERGAN) AMP IVP PRN ×2 (08:23→15:08)
[2019-02-10] MEDS ORDERED: CIPROFLOXACIN IV 400MG/200ML 200 ML IV SCH ×2 (09:30→21:00)
--- NOTE | 2019-02-10 10:40 | Progress Note - Hospitalist ---
Subjective HPI/CC On Admission Date Seen by Provider: Feb 10, 2019 Time Seen by Provider: 09:45 CC: Small bowel obstruction HPI: This is a 63yoWM with a PMH of bowel obstructions and colostomy placement, who presented to the [facility] ER with nausea and vomiting for the past several days that actually improved a little bit yesterday and was able to eat breakfast but states became worsened, went to the [facility] ER found to have small bowel obstruction. Pt was placed on IV fluids, supportive care, NG tube was placed and provided pain medication and I did consult Dr. Ceballos who knows him well and he will see him in consultation. Pt appears to be very frail and declined overall. Subjective/Events-last exam Pt is DNR so updated order Overall improved NG tube still in place Denies any significant abdominal pain currently Colostomy is working Will work to get the NG tube out All home meds are on hold Review of Systems Gastrointestinal: Abdominal Pain Objective Exam Vital Signs Vital Signs Date Time Temp Pulse Resp B/P (MAP) Pulse Ox O2 Delivery O2 Flow Rate FiO2 02/10/19 16:30 36.8 77 18 102/61 (75) 90 Room Air 02/10/19 08:00 2.00 Capillary Refill : Less Than 3 Seconds General Appearance: WD/WN, Anxious, Chronically ill, Cachetic Respiratory: Lungs Clear Cardiovascular: Regular Rate, Rhythm Neurologic/Psychiatric: Alert, Oriented x3, No Motor/Sensory Deficits, Normal Mood/Affect Results/Procedures Lab Laboratory Tests 02/10/19 06:02 02/10/19 06:07 Patient resulted labs reviewed. Assessment/Plan Assessment and Plan Assess & Plan/Chief Complaint Assessment: Ischemic colitis with ileus Colostomy status DNR/Debility Plan: Appreciate Dr Ceballos Supportive care Diagnosis/Problems Diagnosis/Problems (1) Small bowel obstruction Status: Acute (2) Colostomy in place Status: Chronic (3) Debility Status: Acute (4) Depression Status: Acute (5) Tobacco dependence Clinical Quality Measures DVT/VTE Risk/Contraindication: Risk Factor Score Per Nursin RFS Level Per Nursing on Admit: 4+=Very High GORGE RENTERIA DO Feb 10, 2019 10:40
[2019-02-10] MEDS: ENOXAPARIN 40 MG/0.4 ML (LOVENOX) SYR SC SCH (11:01)
[2019-02-10 12:00] VITALS: BP 102/59
--- NOTE | 2019-02-10 12:12 | Progress Note ---
Subjective Date Seen by a Provider: Feb 10, 2019 Time Seen by a Provider: 10:00 Subjective/Events-last exam doing better today. functional colostomy. no abd distention/pain. Objective Exam Vital Signs Date Time Temp Pulse Resp B/P (MAP) Pulse Ox O2 Delivery O2 Flow Rate FiO2 02/10/19 08:00 36.2 82 18 105/55 (72) 91 Room Air 02/10/19 08:00 Nasal Cannula 2.00 02/10/19 04:00 36.6 86 18 129/59 (82) 91 Room Air 02/10/19 00:55 36.6 83 22 84/53 (63) 90 Room Air 02/09/19 21:45 36.6 02/09/19 20:00 Nasal Cannula 2.00 02/09/19 19:34 36.6 98 22 104/64 (77) 90 Room Air 02/09/19 16:46 36.7 85 22 104/65 (78) 90 Room Air I & O 02/10/19 07:00 Intake Total 3000 ml Output Total 5290 ml Balance -2290 ml Capillary Refill : Less Than 3 Seconds General Appearance: No Apparent Distress HEENT: PERRL/EOMI Neck: Full Range of Motion Respiratory: Chest Non Tender, Wheezing Cardiovascular: Regular Rate, Rhythm Gastrointestinal: normal bowel sounds, soft Extremity: Normal Capillary Refill Neurologic/Psychiatric: Alert, Oriented x3 Skin: Normal Color Lymphatic: No Adenopathy Results Lab Laboratory Tests 02/10/19 06:02: Sodium Level 139, Potassium Level 4.3, Chloride Level 98, Carbon Dioxide Level 29, Anion Gap 12, Blood Urea Nitrogen 27H, Creatinine 1.17, Estimat Glomerular Filtration Rate > 60, BUN/Creatinine Ratio 23, Glucose Level 99, Calcium Level 9.3, Corrected Calcium 9.7, Total Bilirubin 0.5, Aspartate Amino Transf ( T/SGOT) 12, Alanine Aminotransferase (ALT/SGPT) 8, Alkaline Phosphatase 67, Total Protein 7.4, Albumin 3.5 02/10/19 06:07: White Blood Count 13.8H, Red Blood Count 3.83L, Hemoglobin 10.7L, Hematocrit 34L , Mean Corpuscular Volume 88, Mean Corpuscular Hemoglobin 28, Mean Corpuscular Hemoglobin Concent 32, Red Cell Distribution Width 15.2H, Platelet Count 432H, Mean Platelet Volume 9.7, Neutrophils (%) (Auto) 83H, Lymphocytes (%) (Auto) 11L , Monocytes (%) (Auto) 5, Eosinophils (%) (Auto) 0, Basophils (%) (Auto) 0, Neutrophils # (Auto) 11.4H, Lymphocytes # (Auto) 1.6, Monocytes # (Auto) 0.8, Eosinophils # (Auto) 0.0, Basophils # (Auto) 0.0 Assessment/Plan Assessment/Plan Assess & Plan/Chief Complaint PSBO likely related to chronic ischemic bowel. doing better with functional colostomy. d/c ngt and start clears. Clinical Quality Measures DVT/VTE Risk/Contraindication: Risk Factor Score Per Nursin RFS Level Per Nursing on Admit: 4+=Very High ALEJANDRO BLANK MD Feb 10, 2019 12:12
[2019-02-10 16:30] VITALS: BP 102/61
[2019-02-10] MEDS ORDERED: LACTULOSE 10 GM/15 ML 30 ML POUR BOTTLE FOR ENEMA PO PRN (17:45)
[2019-02-10] MEDS ORDERED: HYDROcodone/APAP 10 MG/325 MG (LORTAB) TAB PO PRN (17:45)
[2019-02-10] MEDS ORDERED: ONDANSETRON 4 MG (ZOFRAN) ORAL DISSOLVE TAB PO PRN (17:45)
[2019-02-10] MEDS ORDERED: METOCLOPRAMIDE PO PRN (17:45)
[2019-02-10] MEDS ORDERED: LACTULOSE SYRUP 10GM/15ML (ENULOSE) 30ML UDC PO PRN (18:15)
[2019-02-10] MEDS ORDERED: METOCLOPRAMIDE 5 MG (REGLAN) TAB PO PRN (18:15)
[2019-02-10 19:52] VITALS: BP 91/53
[2019-02-10] MEDS: DIVALPROEX 250 MG DELAYED RELEASE (DEPAKOTE) TAB PO SCH (20:51)
[2019-02-10] MEDS: morphine ER 30 MG (MS CONTIN) TAB PO SCH (20:51)
[2019-02-10] MEDS: CIPROFLOXACIN 500 MG (CIPRO) TABLET PO SCH (20:52)
[2019-02-10] MEDS ORDERED: MIRTAZAPINE 15 MG (REMERON) TAB PO SCH (21:00)
[2019-02-10] MEDS ORDERED: NON-FORMULARY MEDICATION 1 EA EA (Mirtazapine 15 MG) PO SCH (21:00)
[2019-02-11 00:29] VITALS: BP 98/57
[2019-02-11 04:00] VITALS: BP 98/63
[2019-02-11 06:58] LABS: BASOPHILS % (AUTO) 0 % (0-10); EOSINOPHILS # (AUTO) 0.2 10^3/uL (0.0-0.3); EOSINOPHILS % (AUTO) 2 % (0-10); HEMATOCRIT 33 % (40-54); HEMOGLOBIN 10.4 G/DL (13.3-17.7); LYMPHOCYTES # (AUTO) 1.3 X 10^3 (1.0-4.0); LYMPHOCYTES % (AUTO) 12 % (12-44); MEAN CORPUSCULAR HEMOGLOBIN 28 PG (25-34); MEAN CORPUSCULAR HGB CONC 32 G/DL (32-36); MEAN CORPUSCULAR VOLUME 89 FL (80-99); MEAN PLATELET VOLUME 9.2 FL (7.4-10.4); MONOCYTES # (AUTO) 0.5 X 10^3 (0.0-1.0); MONOCYTES % (AUTO) 5 % (0-12); NEUTROPHILS # (AUTO) 8.4 X 10^3 (1.8-7.8); NEUTROPHILS % (AUTO) 81 % (42-75); PLATELET COUNT 321 10^3/uL (130-400); RED CELL DISTRIBUTION WIDTH 14.9 % (10.0-14.5); WHITE BLOOD COUNT 10.3 10^3/uL (4.3-11.0)
[2019-02-11] MEDS ORDERED: MULTIVIT W/MINERALS TAB (THERAGRAN M) PO SCH (07:00)
[2019-02-11] MEDS ORDERED: PANTOPRAZOLE 40 MG (PROTONIX) TAB PO SCH (07:00)
[2019-02-11 07:16] LABS: ALANINE AMINOTRANSFERASE 14 U/L (0-55); ALBUMIN 3.4 GM/DL (3.2-4.5); ALKALINE PHOSPHATASE 55 U/L (40-136); BILIRUBIN,TOTAL 0.3 MG/DL (0.1-1.0); BUN/CREATININE RATIO 19; CALCIUM 9.3 MG/DL (8.5-10.1); CARBON DIOXIDE 28 MMOL/L (21-32); CHLORIDE 97 MMOL/L (98-107); CREATININE SERUM 1.12 MG/DL (0.60-1.30); GFR ESTIMATED > 60; GLUCOSE 83 MG/DL (70-105); POTASSIUM 3.8 MMOL/L (3.6-5.0); SODIUM 137 MMOL/L (135-145); TOTAL PROTEIN 6.9 GM/DL (6.4-8.2)
[2019-02-11 08:00] VITALS: BP 100/63
[2019-02-11] MEDS ORDERED: IRON POLYSAC 150 MG CAP (NIFEREX) PO SCH (08:00)
[2019-02-11] MEDS: DIVALPROEX 250 MG DELAYED RELEASE (DEPAKOTE) TAB PO SCH (08:21)
[2019-02-11] MEDS: CIPROFLOXACIN 500 MG (CIPRO) TABLET PO SCH (08:21)
[2019-02-11] MEDS: morphine ER 30 MG (MS CONTIN) TAB PO SCH (08:22)
[2019-02-11] MEDS ORDERED: MAGNESIUM OXIDE (MAG-OX)400 MG TAB PO SCH (09:00)
[2019-02-11] MEDS ORDERED: IRON PS CMPLX PO SCH (09:00)
[2019-02-11] MEDS ORDERED: MELOXICAM 7.5 MG (MOBIC) TABLET PO SCH (09:00)
[2019-02-11] MEDS ORDERED: VIT B12 PO SCH (09:00)
[2019-02-11] MEDS ORDERED: [UNRECOGNIZED DRUG - OTHER] PO SCH (09:00)
[2019-02-11] MEDS ORDERED: CIPR500T4 PO (09:46)
--- NOTE | 2019-02-11 09:47 | Discharge Summary ---
Discharge Summary Hospital Course Was the Problem List Reviewed?: Yes Problems/Dx: (1) Small bowel obstruction Status: Acute (2) Colostomy in place Status: Chronic (3) Debility Status: Acute (4) Depression Status: Acute (5) Tobacco dependence Hospital Course Date of Admission: Feb 09, 2019 at 00:03 Admission Diagnosis : Family Physician/Provider: Rubio Garcia MD Date of Discharge: 02/11/19 Discharge Diagnosis: SBO Hospital Course: Hospital course: Pt had an uneventful hospital course for three days after he was admitted for admitted for small bowel obstruction, acute on-chronic type and colostomy status. Dr. Ceballos was consulted, he was managed conservatively, he was found to not necessarily have a small bowl obstruction but instead ischemic colitis with functional ileus so NG tube was removed, Pt was advanced on clear liquids once his colostomy was functioning and overall remains stable but overall prognosis is extremely poor, he will remain DNR but at 63 years old and such complex issues he has a very poor prognosis. Labs and Pending Lab Test: Laboratory Tests 02/11/19 06:50: White Blood Count 10.3, Red Blood Count 3.67L, Hemoglobin 10.4L, Hematocrit 33L, Mean Corpuscular Volume 89, Mean Corpuscular Hemoglobin 28, Mean Corpuscular Hemoglobin Concent 32, Red Cell Distribution Width 14.9H, Platelet Count 321, Mean Platelet Volume 9.2, Neutrophils (%) (Auto) 81H, Lymphocytes (%) (Auto) 12, Monocytes (%) (Auto) 5, Eosinophils (%) (Auto) 2, Basophils (%) (Auto) 0, Neutrophils # (Auto) 8.4H, Lymphocytes # (Auto) 1.3, Monocytes # (Auto) 0.5, Eosinophils # (Auto) 0.2, Basophils # (Auto) 0.0, Sodium Level 137, Potassium Level 3.8, Chloride Level 97L, Carbon Dioxide Level 28, Anion Gap 12, Blood Urea Nitrogen 21H, Creatinine 1.12, Estimat Glomerular Filtration Rate > 60, BUN/Creatinine Ratio 19, Glucose Level 83, Calcium Level 9.3, Corrected Calcium 9.8, Total Bilirubin 0.3, Aspartate Amino Transf (AST/SGOT) 16, Alanine Aminotransferase (ALT/SGPT) 14, Alkaline Phosphatase 55, Total Protein 6.9, Albumin 3.4 Home Meds Active Reported Metoclopramide HCl 10 Mg Tablet 5-10 Mg PO BID PRN Constulose (Lactulose) 10 Gm/15 Ml Solution 30 Ml PO DAILY PRN Hydrocodon-Acetaminophn 10-325 (Hydrocodone/Acetaminophen) 1 Each Tablet 1 Tab PO Q6H PRN Morphine Sulfate ER (Morphine Sulfate) 30 Mg Tablet.er 30 Mg PO BID Ondansetron Odt (Ondansetron) 4 Mg Tab.rapdis 4 Mg PO Q8H PRN Divalproex Sodium 250 Mg Tablet.dr 250 Mg PO BID Poly-Iron 150 Forte Capsule (Iron Ps Cmplx/Vit B12/FA) 1 Each Capsule 150 Mg PO DAILY Citalopram HBr (Citalopram Hydrobromide) 20 Mg Tablet 20 Mg PO BID Mirtazapine 15 Mg Tablet 15 Mg PO HS Pantoprazole Sodium 40 Mg Tablet.dr 40 Mg PO DAILY Theragran-M Premier 50+ Caplet (Mv-Mn/FA/Coq10/Lycopene/Lutein) 1 Each Tablet 1 Tab PO DAILY Meloxicam 7.5 Mg Tablet 7.5 Mg PO DAILY Magnesium Oxide 400 Mg Tablet 400 Mg PO DAILY Assessment/Pt Instructions PCP 1 week Discharge Planning: <30 minutes discharge planning Discharge Instructions Discharge Diet: No Restrictions Activity as Tolerated: Yes Discharge Physical Examination Vital Signs Vital Signs Date Time Temp Pulse Resp B/P (MAP) Pulse Ox O2 Delivery O2 Flow Rate FiO2 02/11/19 08:00 37.2 99 18 100/63 (75) 91 Room Air 02/11/19 08:00 1.00 General Appearance: No Apparent Distress, WD/WN Respiratory: Chest Non Tender, Lungs Clear, Normal Breath Sounds, No Accessory Muscle Use, No Respiratory Distress Cardiovascular: Regular Rate, Rhythm, No Edema, No Gallop, No JVD, No Murmur, Normal Peripheral Pulses Neurologic/Psychiatric: Alert, Oriented x3, No Motor/Sensory Deficits, Normal Mood/Affect Allergies: Coded Allergies: oxycodone (Verified Allergy, Intermediate, HIVES, 04/18/17) Penicillins (Unverified Allergy, Unknown, 02/10/19) Sulfa (Sulfonamide Antibiotics) (Verified Allergy, Unknown, 04/08/17) codeine (Verified Allergy, Unknown, 04/08/17) Discharge Summary Date of Admission Feb 09, 2019 at 00:03 Date of Discharge Discharge Date: Feb 11, 2019 Admission Diagnosis Assessment: SBO Colostomy status GERD Debility Plan: Dr Ceballos appreciated IVF Pain meds Supportive care NPO Discharge Diagnosis Assessment: Ischemic colitis with ileus Colostomy status DNR/Debility Plan: Appreciate Dr Ceballos Supportive care (1) Small bowel obstruction Status: Acute (2) Colostomy in place Status: Chronic (3) Debility Status: Acute (4) Depression Status: Acute (5) Tobacco dependence Clinical Quality Measures DVT/VTE Risk/Contraindication: Risk Factor Score Per Nursin RFS Level Per Nursing on Admit: 4+=Very High GORGE RENTERIA DO Feb 11, 2019 09:47
--- NOTE | 2019-02-11 10:00 | NUR ---
O2 SAT ON ROOM AIR 94 PERCENT, DENIES PAIN OR NAUSEA, COLOSTOMY BAG PATENT WITH LIQUID STOOL, VOIDING WITHOUT DIFFICULTY.
[2019-02-11 10:42] VITALS: BP 100/63
== END 2019-02-11 10:35 | disposition home or self-care (01) | DRG 394 ==
LOC: EDUNIT# 22:17 → ER FS 22:20 → 4TH 02-09 00:03
PROVIDERS: ADMIT Internal Medicine; ATTEND Internal Medicine
PROC: 0D9670Z Drainage of Stomach with Drainage Device, Via Natural or Artificial Opening (ICD-10-PCS; principal; 2019-02-08)
DX: K55.9 Vascular disorder of intestine, unspecified (principal); K56.7 Ileus, unspecified; Z93.3 Colostomy status; Z66 Do not resuscitate; R53.81 Other malaise; K21.9 Gastro-esophageal reflux disease without esophagitis; I71.4 Abdominal aortic aneurysm, without rupture; I10 Essential (primary) hypertension; F17.210 Nicotine dependence, cigarettes, uncomplicated; F17.290 Nicotine dependence, other tobacco product, uncomplicated; I73.9 Peripheral vascular disease, unspecified; F41.9 Anxiety disorder, unspecified; F32.9 Major depressive disorder, single episode, unspecified; K59.09 Other constipation; J44.9 Chronic obstructive pulmonary disease, unspecified; Z88.0 Allergy status to penicillin; Z88.2 Allergy status to sulfonamides; Z88.5 Allergy status to narcotic agent; Z86.73 Personal history of transient ischemic attack (TIA), and cerebral infarction without residual deficits; Z72.89 Other problems related to lifestyle
CPT/HCPCS: 36415; 74177; 80053; 80320; 83690; 85007; 85025; 85027; 94760; 96374; 96375

== ENCOUNTER 2019-06-17 16:46 | Emergency (ER) | payer BC ==
[~2019-06-17] VITALS: Ht 167.7 cm; Wt 60.5 kg
[~2019-06-17 16:46] MED LIST changes: +CIPR500T4 PO; +HYDR-3820 PO; +LACT10SO64 PO; -MAGN400T6 PO; +MAGN400T8 PO; +METO10TA3 PO; -MORP-33 PO; +MORP-68 PO; +MORP-69 PO
[2019-06-17] MEDS ORDERED: NS IV 1000 ML 1,000 ML IV SCH (17:15)
[2019-06-17] MEDS ORDERED: ONDANSETRON 4 MG/2 ML (SDV) Z0FRAN IVP ONE (17:15)
--- NOTE | 2019-06-17 17:33 | ED General ---
General Stated Complaint: VOMITING,CONGESTION,DEHYDRATION Source of Information: Patient Exam Limitations: No Limitations (SOPHIE TAY DO) History of Present Illness Date Seen by Provider: Jun 17, 2019 Time Seen by Provider: 17:20 Initial Comments The patient is a 63-year-old male presents for evaluation of nausea and vomiting, cough, congestion, and dehydration over the last 3 days or so. The patient's is providing much the history and states that he has not been able to keep anything down. He has a colostomy which has been outputting normally. He denies any chest pain or shortness of breath, abdominal or back pain. He states he lives with chronic pain every day but that is currently at baseline. He is noted to be tachycardic upon arrival. He denies fevers or chills, headache, neck pain, palpitations, dizziness or syncope. Timing/Duration: 3-4 Days Severity: Moderate Associated Systoms: Loss of Appetite, Malaise, Nausea/Vomiting, Weakness (SOPHIE TAY DO) Allergies and Home Medications Allergies Coded Allergies: oxycodone (Verified Allergy, Intermediate, HIVES, 04/18/17) Penicillins (Unverified Allergy, Unknown, 02/10/19) Sulfa (Sulfonamide Antibiotics) (Verified Allergy, Unknown, 04/08/17) codeine (Verified Allergy, Unknown, 04/08/17) Home Medications Ciprofloxacin HCl 500 Mg Tablet, 500 MG PO BID Prescribed by: GORGE RENTERIA on 02/11/19 0946 Citalopram Hydrobromide 20 Mg Tablet, 20 MG PO BID, (Reported) Divalproex Sodium 250 Mg Tablet.dr, 250 MG PO BID, (Reported) Hydrocodone/Acetaminophen 1 Each Tablet, 1 TAB PO Q6H PRN for PAIN-MODERATE, (Reported) Iron Ps Cmplx/Vit B12/FA 1 Each Capsule, 150 MG PO DAILY, (Reported) Lactulose 10 Gm/15 Ml Solution, 30 ML PO DAILY PRN for CONSTIPATION-3RD LINE, (Reported) Magnesium Oxide 400 Mg Tablet, 400 MG PO DAILY, (Reported) Meloxicam 7.5 Mg Tablet, 7.5 MG PO DAILY, (Reported) Metoclopramide HCl 10 Mg Tablet, 5-10 MG PO BID PRN for STOMACH UPSET, (Reported) Mirtazapine 15 Mg Tablet, 15 MG PO HS, (Reported) Morphine Sulfate 30 Mg Tablet.er, 30 MG PO BID, (Reported) Mv-Mn/FA/Coq10/Lycopene/Lutein 1 Each Tablet, 1 TAB PO DAILY, (Reported) Ondansetron 4 Mg Tab.rapdis, 4 MG PO Q8H PRN for NAUSEA/VOMITING-1ST LINE, ( Reported) Pantoprazole Sodium 40 Mg Tablet.dr, 40 MG PO DAILY, (Reported) Patient Home Medication List Home Medication List Reviewed: Yes (SOPHIE TAY DO) Review of Systems Review of Systems Constitutional: No chills, No fever; malaise EENTM: no symptoms reported Respiratory: no symptoms reported Cardiovascular: no symptoms reported Gastrointestinal: nausea, vomiting Musculoskeletal: no symptoms reported Skin: no symptoms reported Psychiatric/Neurological: No Symptoms Reported Hematologic/Lymphatic: No Symptoms Reported Immunological/Allergic: no symptoms reported (SOPHIE TAY DO) All Other Systems Reviewed Negative Unless Noted: Yes (SOPHIE TAY DO) Past Iyuxeio-Hwnior-Xjqrkf Hx Past Med/Social Hx: Reviewed Nursing Past Med/Soc Hx (SOPHIE TAY DO) Patient Social History Type Used: Cigarettes, Electronic/Vapor 2nd Hand Smoke Exposure: No Recent Foreign Travel: No Contact w/Someone Who Travel: No Recent Hopitalizations: Yes (WAS RELEASED FROM [place] ON .) (SOPHIE TAY DO) Immunizations Up To Date Date of Influenza Vaccine: Feb 08, 2018 (SOPHIE TAY DO) Seasonal Allergies Seasonal Allergies: No (SOPHIE TAY DO) Past Medical History Surgeries: Yes (AAA rupture repair, colostomy, wound debriedment, femoral emboloectomy) Appendectomy, Bowel Surgery Respiratory: Yes COPD Aneurysm Neurological: Yes (Encephalopathy, CVD) Genitourinary: Yes (Retention) Gastrointestinal: Yes (Colostomy d/t ischemic colitis) Gastroesophageal Reflux, Obstructive Bowel, Chronic Constipation Musculoskeletal: Yes (Debility, extreme weakness) Endocrine: No HEENT: No Cancer: No Psychosocial: Yes Anxiety, Depression Integumentary: Yes (abdomen, sacrum, HX stage IV) Recent Skin Changes Blood Disorders: Yes (Chronic Anemia) (SOPHIE TAY DO) Family Medical History Cardiovascular disease 19 FATHER Completed stroke 19 FATHER Diabetes mellitus 19 MOTHER Glaucoma 19 MOTHER Hypertension 19 FATHER 19 MOTHER G8 BROTHER Myocardial infarction 19 FATHER No Pertinent Family Hx (SOPHIE TAY DO) Physical Exam Vital Signs Capillary Refill : (SOPHIE TAY DO) Height, Weight, BMI Height: 5'6.00" Weight: 164lbs. 0.0oz. 74.887356fo; 12.83 BMI Method:Stated General Appearance: No Apparent Distress HEENT: PERRL/EOMI, TMs Normal, Normal ENT Inspection, Other (dry mucous membranes) Neck: Full Range of Motion, Non Tender Respiratory: Chest Non Tender, Lungs Clear, Normal Breath Sounds, No Accessory Muscle Use Cardiovascular: Regular Rate, Rhythm, No Edema, No Murmur Gastrointestinal: Normal Bowel Sounds, No Pulsatile Mass, Non Tender, Soft, Other (colostomy bag is present) Extremity: Normal Capillary Refill, Normal Inspection, Non Tender Neurologic/Psychiatric: Alert, Oriented x3, No Motor/Sensory Deficits, Normal 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, 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 as 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 Skin: Normal Color, Warm/Dry (SOPHIE TAY DO) Progress/Results/Core Measures Suspected Sepsis SIRS Temperature: Pulse: Respiratory Rate: Blood Pressure / Mean: (SOPHIE TAY DO) Results/Orders Lab Results Laboratory Tests Test 06/17/19 17:20 Range/Units White Blood Count 16.0 H 4.3-11.0 10^3/uL Red Blood Count 5.34 4.35-5.85 10^6/uL Hemoglobin 14.8 13.3-17.7 G/DL Hematocrit 47 40-54 % Mean Corpuscular Volume 87 80-99 FL Mean Corpuscular Hemoglobin 28 25-34 PG Mean Corpuscular Hemoglobin Concent 32 32-36 G/DL Red Cell Distribution Width 16.0 H 10.0-14.5 % Platelet Count 539 H 130-400 10^3/uL Mean Platelet Volume 9.4 7.4-10.4 FL Neutrophils (%) (Auto) 76 H 42-75 % Lymphocytes (%) (Auto) 17 12-44 % Monocytes (%) (Auto) 7 0-12 % Eosinophils (%) (Auto) 0 0-10 % Basophils (%) (Auto) 0 0-10 % Neutrophils # (Auto) 12.1 H 1.8-7.8 X 10^3 Lymphocytes # (Auto) 2.7 1.0-4.0 X 10^3 Monocytes # (Auto) 1.2 H 0.0-1.0 X 10^3 Eosinophils # (Auto) 0.1 0.0-0.3 10^3/uL Basophils # (Auto) 0.1 0.0-0.1 10^3/uL Neutrophils % (Manual) 67 % Lymphocytes % (Manual) 20 % Monocytes % (Manual) 6 % Eosinophils % (Manual) 1 % Basophils % (Manual) 0 % Band Neutrophils 5 % Atypical Lymphocytes 1 % Blood Morphology Comment NORMAL Sodium Level 136 135-145 MMOL/L Potassium Level 3.8 3.6-5.0 MMOL/L Chloride Level 90 L 98-107 MMOL/L Carbon Dioxide Level 22 21-32 MMOL/L Anion Gap 24 H 5-14 MMOL/L Blood Urea Nitrogen 26 H 7-18 MG/DL Creatinine 1.19 0.60-1.30 MG/DL Estimat Glomerular Filtration Rate > 60 BUN/Creatinine Ratio 22 Glucose Level 126 H 70-105 MG/DL Calcium Level 8.5 8.5-10.1 MG/DL Corrected Calcium 8.7 8.5-10.1 MG/DL Total Bilirubin 0.4 0.1-1.0 MG/DL Aspartate Amino Transf (AST/SGOT) 18 5-34 U/L Alanine Aminotransferase (ALT/SGPT) 12 0-55 U/L Alkaline Phosphatase 80 40-136 U/L Troponin I < 0.30 <0.30 NG/ML Pro-B-Type Natriuretic Peptide 328.0 H <75.0 PG/ML Total Protein 8.1 6.4-8.2 GM/DL Albumin 3.8 3.2-4.5 GM/DL (RUPA SIMPSON MD) Micro Results Microbiology 06/17/19 Influenza Types A,B Antigen (NEERU) - Final, Complete (RUPA SIMPSON MD) My Orders Orders - RUPA SIMPSON MD Ns Iv 1000 Ml (Sodium Chloride 0.9%) (06/17/19 18:42) Metoclopramide Injection (Reglan Injecti (06/17/19 18:42) (RUPA SIMPSON MD) Medications Given in ED Current Medications Medications Dose Ordered Sig/Yanira Route Start Time Stop Time Status Last Admin Dose Admin Ondansetron HCl 4 mg ONCE ONCE IVP 06/17/19 17:15 06/17/19 17:16 DC 06/17/19 17:35 4 MG (RUPA SIMPSON MD) Vital Signs/I&O 06/18/19 00:00 Intake Total 1000 ml Balance 1000 ml (RUPA SIMPSON MD) Vital Signs/I&O Capillary Refill : (SOPHIE TAY DO) Progress Note : Progress Note @1800 - Pt care transferred to Dr. Simpson at this time. Awaiting lab results and response to treatment. (SOPHIE TAY DO) Progress Note #1: Time: 18:00 Progress Note Assumed care of pt from Dr. Tay awaiting test results and to see how he responds to fluid bolus and anti-emetics. Flu swab is negative. CBC shows elevated WBC count to 16K with left shift. Heart rate down to 90 sinus rhythm with BP 129/82 O2 sat 94%. Progress Note #2: Time: 18:24 Progress Note Chemistry is at his baseline and CXR is clear without infiltrate or acute proc ess. Will review results with pt and spouse and see how he has responded to IVF and Zofran. Progress Note #3: Progress Note Pt feels that he is doing much better and tolerating po here. will give 1 more Liter bolus prior to discharge home. (RUPA SIMPSON MD) ECG Initial ECG Impression Date: Jun 17, 2019 Initial ECG Impression Time: 18:02 Initial ECG Rate: 91 Initial ECG Rhythm: Normal Sinus Initial ECG Comparisson: No Previous ECG Available Comment Normal Sinus rhythm with heart rate 91 bpm. WA interval of 121 ms. Low voltage in precordial leads. QT interval 356 ms with QTc interval of 439 ms. Global T wave flattening without ST elevation. No prior tracing immediately available for comparison. (RUPA SIMPSON MD) Diagnostic Imaging Diagonstic Imaging: Xray Plain Films/CT/US/NM/MRI: chest Comments NAME: PIOTR BRISCOE [facility] REC#: [id number] PT STATUS: REG ER : 1955 PHYSICIAN: SOPHIE TAY DO ADMIT DATE: 06/17/19/ER FS Signed Date of Exam:06/17/19 CHEST 1 VIEW AP/PA ONLY INDICATION: Nausea and vomiting. COMPARISON: None FINDINGS: Single view of the chest demonstrates clear lungs bilaterally. The heart is normal. There is no pneumothorax. The osseous structures are normal. IMPRESSION: Negative chest. Dictated by: Dictated on workstation # [id number] Dict: 06/17/19 1749 Trans: 06/17/19 1800 [facility] [id number] Interpreted by: SUSAN TORRES Electronically signed by: SUSAN TORRES 06/17/19 1800 (RUPA SIMPSON MD) Departure Impression Primary Impression: Nausea and vomiting Qualified Codes: R11.14 - Bilious vomiting Additional Impression: Dehydration Disposition: HOME, SELF-CARE Condition: Improved Departure-Patient Inst. Decision time for Depature: 19:00 (RUPA SIMPSON MD) Referrals: LESA URBINA MD (PCP/Family) Primary Care Physician Patient Instructions: Nausea and Vomiting, Adult (DC), Dehydration, Adult (DC) Add. Discharge Instructions: Continue to drink fluids and stay hydrated at home. Use the Ondansetron and Metoclopramide as needed for your nausea to help keep your stomach settled Check back with clinic for continued concerns or if worsens over the weekend return for recheck SOPHIE TAY DO Jun 17, 2019 17:33 RUPA SIMPSON MD Jun 17, 2019 18:16
[2019-06-17 17:46] LABS: BASOPHILS % (AUTO) 0 % (0-10); EOSINOPHILS % (AUTO) 0 % (0-10); HEMATOCRIT 47 % (40-54); HEMOGLOBIN 14.8 G/DL (13.3-17.7); LYMPHOCYTES % (AUTO) 17 % (12-44); MEAN CORPUSCULAR HEMOGLOBIN 28 PG (25-34); MEAN CORPUSCULAR HGB CONC 32 G/DL (32-36); MEAN CORPUSCULAR VOLUME 87 FL (80-99); MEAN PLATELET VOLUME 9.4 FL (7.4-10.4); MONOCYTES % (AUTO) 7 % (0-12); NEUTROPHILS % (AUTO) 76 % (42-75); PLATELET COUNT 539 10^3/uL (130-400)
[2019-06-17 17:47] LABS: BASOPHILS # (AUTO) 0.1 10^3/uL (0.0-0.1); EOSINOPHILS # (AUTO) 0.1 10^3/uL (0.0-0.3); LYMPHOCYTES # (AUTO) 2.7 X 10^3 (1.0-4.0); MONOCYTES # (AUTO) 1.2 X 10^3 (0.0-1.0); NEUTROPHILS # (AUTO) 12.1 X 10^3 (1.8-7.8)
--- NOTE | 2019-06-17 17:57 | Diagnostic Imaging Report ---
INDICATION: Nausea and vomiting. COMPARISON: None FINDINGS: Single view of the chest demonstrates clear lungs bilaterally. The heart is normal. There is no pneumothorax. The osseous structures are normal. IMPRESSION: Negative chest. Dictated by: Dictated on workstation # [id number]
[2019-06-17 18:11] LABS: ALANINE AMINOTRANSFERASE 12 U/L (0-55); ALKALINE PHOSPHATASE 80 U/L (40-136); BILIRUBIN,TOTAL 0.4 MG/DL (0.1-1.0); BUN/CREATININE RATIO 22; CALCIUM 8.5 MG/DL (8.5-10.1); CARBON DIOXIDE 22 MMOL/L (21-32); CHLORIDE 90 MMOL/L (98-107); CREATININE SERUM 1.19 MG/DL (0.60-1.30); GFR ESTIMATED > 60; GLUCOSE 126 MG/DL (70-105); POTASSIUM 3.8 MMOL/L (3.6-5.0); SODIUM 136 MMOL/L (135-145)
[2019-06-17 18:12] LABS: ALBUMIN 3.8 GM/DL (3.2-4.5); TOTAL PROTEIN 8.1 GM/DL (6.4-8.2)
[2019-06-17 18:18] LABS: ATYPICAL LYMPHOCYTES 1 %; BAND NEUTROPHILS 5 %; BASOPHILS % (MANUAL) 0 %; EOSINOPHILS % (MANUAL) 1 %; LYMPHOCYTES % (MANUAL) 20 %; MONOCYTES % (MANUAL) 6 %; NEUTROPHILS % (MANUAL) 67 %; RBC MORPH NORMAL
[2019-06-17] MEDS ORDERED: NS IV 1000 ML 1,000 ML IV STA (18:42)
[2019-06-17] MEDS ORDERED: METOCLOPRAMIDE INJ 10 MG/2 ML (REGLAN) IVP STA (18:42)
[2019-06-17 19:26] VITALS: BP 110/73
--- NOTE | 2019-06-17 19:26 | NUR ---
Pt discharged to home after review of home instructions verbalized as understood by pt and . is the primary caregiver of pt it appers contributing significantly more information or understanding of the work up. Pt rec'd a 2 liter bolus and small po fluid challenge and tolerated well to be in agreeance for discharge. Pt became less tachycardiac with heart rate to the 90's.
== END 2019-06-17 19:26 | disposition home or self-care (01) ==
LOC: EDUNIT# 16:46 → ER FS 16:47
DX: R11.2 Nausea with vomiting, unspecified (principal); E86.0 Dehydration; K21.9 Gastro-esophageal reflux disease without esophagitis; F41.9 Anxiety disorder, unspecified; F32.9 Major depressive disorder, single episode, unspecified; D64.9 Anemia, unspecified; Z88.5 Allergy status to narcotic agent; Z88.0 Allergy status to penicillin; Z88.2 Allergy status to sulfonamides; Z93.3 Colostomy status; Z82.49 Family history of ischemic heart disease and other diseases of the circulatory system
CPT/HCPCS: 36415; 71045; 80053; 83880; 84484; 85007; 85027; 87804; 93005; 96361; 96374; 96375

== ENCOUNTER 2019-06-18 17:13 | Inpatient (IN) | payer BC ==
[~2019-06-18] VITALS: Ht 167.7 cm; Wt 61.8 kg
[2019-06-18] MEDS ORDERED: LACTATED RINGERS 1,000 ML IV ONE ×2 (17:31→19:36)
--- NOTE | 2019-06-18 17:44 | ED General ---
General Stated Complaint: VOMITING History of Present Illness Date Seen by Provider: Jun 18, 2019 Time Seen by Provider: 17:20 Initial Comments The patient is a 63-year-old male with extensive past medical history including hypertension, hyperlipidemia, peripheral vascular disease, history of stroke at the age of 29, tobacco and alcohol abuse, history of abdominal aortic aneurysm status post repair, history of recurrent small bowel obstruction, history of ischemic colitis in 2019, colectomy status post colostomy. Patient presents for reevaluation of generalized abdominal pain, watery high ostomy output and copious nonbloody vomiting, all with onset 4 days ago. Patient was seen in his doctor's office 2 days ago and in this emergency department yesterday. When seen yesterday laboratory evaluation was generally unremarkable aside from leukocytosis to about 16,000. Patient was hydrated with 2 L of crystalloid and had antinausea medication administered parenterally and improved and was discharged home. He presents today stating that his symptoms are entirely unchanged and unimproved. He has vomited greater than 20 times over the last 24 hours and has been unable to hold any food or fluids down for the last several days. He appears clinically dehydrated. As above, he reports generalized abdominal discomfort and no specific area in his abdomen is focally tender. He reports an associated cough which is chronic and not worse than usual today. He denies associated fevers, hematemesis, hematochezia, melena, upper respiratory congestion/rhinorrhea, shortness of breath or chest pain, flank pain, back pain, dysuria or hematuria. appears ill and in mild distress. Vital signs here are generally appropriate aside from mild tachycardia to about 110. Allergies and Home Medications Allergies Coded Allergies: oxycodone (Verified Allergy, Intermediate, HIVES, 04/18/17) Penicillins (Unverified Allergy, Unknown, 02/10/19) Sulfa (Sulfonamide Antibiotics) (Verified Allergy, Unknown, 04/08/17) codeine (Verified Allergy, Unknown, 04/08/17) Home Medications Ciprofloxacin HCl 500 Mg Tablet, 500 MG PO BID Prescribed by: GORGE RENTERIA on 02/11/19 0946 Citalopram Hydrobromide 20 Mg Tablet, 20 MG PO BID, (Reported) Divalproex Sodium 250 Mg Tablet.dr, 250 MG PO BID, (Reported) Hydrocodone/Acetaminophen 1 Each Tablet, 1 TAB PO Q6H PRN for PAIN-MODERATE, (Reported) Iron Ps Cmplx/Vit B12/FA 1 Each Capsule, 150 MG PO DAILY, (Reported) Lactulose 10 Gm/15 Ml Solution, 30 ML PO DAILY PRN for CONSTIPATION-3RD LINE, (Reported) Magnesium Oxide 400 Mg Tablet, 400 MG PO DAILY, (Reported) Meloxicam 7.5 Mg Tablet, 7.5 MG PO DAILY, (Reported) Metoclopramide HCl 10 Mg Tablet, 5-10 MG PO BID PRN for STOMACH UPSET, (Reported) Mirtazapine 15 Mg Tablet, 15 MG PO HS, (Reported) Morphine Sulfate 30 Mg Tablet.er, 30 MG PO BID, (Reported) Mv-Mn/FA/Coq10/Lycopene/Lutein 1 Each Tablet, 1 TAB PO DAILY, (Reported) Ondansetron 4 Mg Tab.rapdis, 4 MG PO Q8H PRN for NAUSEA/VOMITING-1ST LINE, (Reported) Pantoprazole Sodium 40 Mg Tablet.dr, 40 MG PO DAILY, (Reported) Patient Home Medication List Home Medication List Reviewed: Yes Review of Systems Review of Systems Constitutional: see HPI All Other Systems Reviewed Negative Unless Noted: Yes (Negative excepted noted.) Past [place]-Nsvfen-Zqscwv Hx Past Med/Social Hx: Reviewed Nursing Past Med/Soc Hx Patient Social History Type Used: Cigarettes, Electronic/Vapor 2nd Hand Smoke Exposure: No Recent Hopitalizations: No Immunizations Up To Date Date of Influenza Vaccine: Feb 08, 2019 Seasonal Allergies Seasonal Allergies: No Past Medical History Surgeries: Yes (AAA rupture repair, colostomy, wound debriedment, femoral emboloectomy) Appendectomy, Bowel Surgery Respiratory: Yes COPD Aneurysm Neurological: Yes (Encephalopathy, CVD) Genitourinary: Yes (Retention hx) Gastrointestinal: Yes (Colostomy d/t ischemic colitis) Gastroesophageal Reflux, Obstructive Bowel, Chronic Constipation Musculoskeletal: Yes (Debility, extreme weakness) Endocrine: No HEENT: No Cancer: No Psychosocial: Yes Anxiety, Depression Integumentary: Yes (abdomen, sacrum, HX stage IV) Recent Skin Changes Blood Disorders: Yes (Chronic Anemia) Family Medical History Reviewed Nursing Family Hx Cardiovascular disease 19 FATHER Completed stroke 19 FATHER Diabetes mellitus 19 MOTHER Glaucoma 19 MOTHER Hypertension 19 FATHER 19 MOTHER G8 BROTHER Myocardial infarction 19 FATHER No Pertinent Family Hx Physical Exam Vital Signs Vital Signs - First Documented 06/18/19 17:17 Temp 36.2 Pulse 104 Resp 16 B/P (MAP) 130/81 (97) Pulse Ox 92 O2 Delivery Room Air Capillary Refill : Height, Weight, BMI Height: 5'6.00" Weight: 164lbs. 0.0oz. 74.242847ah; 21.00 BMI Method:Stated General Appearance: No Apparent Distress, Chronically ill Comments This is an older male appearing chronically ill but nontoxic and in no significant distress. Patient does appear acutely ill today. Head is normocephalic and atraumatic. Neck is supple and nontender. Oropharynx is mildly tacky. Lungs are clear to auscultation at all stations. There is normal S1 and S2 without rubs or gallops and capillary refill is appropriate, less than 2 seconds globally. There is a tachycardic, regular rhythm. Abdomen is soft and with mild tenderness to palpation generally without focal severe tenderness, rebound or guarding. There is a large amount of watery stool in the ostomy bag present to the right lower quadrant. Skin is warm and dry without cyanosis, clubbing or edema. Psychiatrically, the patient demonstrates appropriate mood and affect and is alert. Neurologically, the patient moves all extremities equally, is alert and oriented 4 and no lateralizing deficits are grossly noted. Focused Exam Lactate Level 06/18/19 17:45: Lactic Acid Level 1.33 Lactic Acid Level Laboratory Tests Test 06/18/19 17:45 Lactic Acid Level 1.33 MMOL/L (0.50-2.00) Progress/Results/Core Measures Suspected Sepsis SIRS Temperature: Pulse: Respiratory Rate: Laboratory Tests 06/18/19 17:45: White Blood Count 15.0H Blood Pressure / Mean: 06/18/19 17:45: Lactic Acid Level 1.33 Laboratory Tests 06/18/19 17:45: Creatinine 1.01, Platelet Count 471H, Total Bilirubin 0.3 Results/Orders Lab Results Laboratory Tests Test 06/18/19 17:45 Range/Units White Blood Count 15.0 H 4.3-11.0 10^3/uL Red Blood Count 4.89 4.35-5.85 10^6/uL Hemoglobin 13.6 13.3-17.7 G/DL Hematocrit 42 40-54 % Mean Corpuscular Volume 86 80-99 FL Mean Corpuscular Hemoglobin 28 25-34 PG Mean Corpuscular Hemoglobin Concent 33 32-36 G/DL Red Cell Distribution Width 15.9 H 10.0-14.5 % Platelet Count 471 H 130-400 10^3/uL Mean Platelet Volume 9.6 7.4-10.4 FL Neutrophils (%) (Auto) 80 H 42-75 % Lymphocytes (%) (Auto) 13 12-44 % Monocytes (%) (Auto) 6 0-12 % Eosinophils (%) (Auto) 0 0-10 % Basophils (%) (Auto) 0 0-10 % Neutrophils # (Auto) 12.0 H 1.8-7.8 X 10^3 Lymphocytes # (Auto) 2.0 1.0-4.0 X 10^3 Monocytes # (Auto) 0.9 0.0-1.0 X 10^3 Eosinophils # (Auto) 0.0 0.0-0.3 10^3/uL Basophils # (Auto) 0.0 0.0-0.1 10^3/uL Neutrophils % (Manual) 62 % Lymphocytes % (Manual) 16 % Monocytes % (Manual) 10 % Eosinophils % (Manual) 0 % Basophils % (Manual) 0 % Band Neutrophils 10 % Reactive Lymphocytes 2 % Blood Morphology Comment NORMAL Sodium Level 137 135-145 MMOL/L Potassium Level 3.4 L 3.6-5.0 MMOL/L Chloride Level 88 L 98-107 MMOL/L Carbon Dioxide Level 29 21-32 MMOL/L Anion Gap 20 H 5-14 MMOL/L Blood Urea Nitrogen 25 H 7-18 MG/DL Creatinine 1.01 0.60-1.30 MG/DL Estimat Glomerular Filtration Rate > 60 BUN/Creatinine Ratio 25 Glucose Level 146 H 70-105 MG/DL Lactic Acid Level 1.33 0.50-2.00 MMOL/L Calcium Level 8.3 L 8.5-10.1 MG/DL Corrected Calcium 8.5 8.5-10.1 MG/DL Total Bilirubin 0.3 0.1-1.0 MG/DL Aspartate Amino Transf (AST/SGOT) 14 5-34 U/L Alanine Aminotransferase (ALT/SGPT) 11 0-55 U/L Alkaline Phosphatase 72 40-136 U/L Troponin I < 0.30 <0.30 NG/ML Total Protein 7.6 6.4-8.2 GM/DL Albumin 3.8 3.2-4.5 GM/DL Lipase 30 8-78 U/L Serum Alcohol < 10 <10 MG/DL My Orders Orders - TEDDY VIDES MD Cbc With Automated Diff (06/18/19 17:31) Comprehensive Metabolic Panel (06/18/19 17:31) Troponin I Fs (06/18/19 17:31) Ekg Tracing (06/18/19 17:31) Chest 1 View Ap/Pa Only (06/18/19 17:31) Ct Abdomen/Pelvis W (06/18/19 17:31) Lipase (06/18/19 17:31) Lactic Acid Analyzer (06/18/19 17:31) Blood Culture (06/18/19 17:31) Ua Culture If Indicated (06/18/19 17:31) Iv/Invasive Line Insertion .IV start (06/18/19 17:31) Stool Culture (06/18/19 17:31) Fecal Wbc (06/18/19 17:31) C Difficile Ag + Toxin A/B. (06/18/19 17:31) Parasite Scrn Stool Giard Cryp (06/18/19 17:31) Parasite Complete Exam Stool (06/18/19 17:31) Rotavirus Antigen (06/18/19 17:31) Lactated Ringers (Lr 1000 Ml Iv Solution (06/18/19 17:31) Fentanyl Injection (Sublimaze Injection (06/18/19 17:45) Promethazine Injection (Phenergan Injec (06/18/19 17:45) Alcohol (06/18/19 17:59) Manual Differential (06/18/19 17:45) Iohexol Injection (Omnipaque 350 Mg/Ml 1 (06/18/19 18:15) Sodium Chloride Flush (Catheter Flush Sy (06/18/19 18:15) Ns (Ivpb) (Sodium Chloride 0.9% Ivpb Bag (06/18/19 18:15) Received Contrast (Hold Metformin- Contr (06/18/19 18:15) Blood Culture (06/18/19 19:15) Meropenem (Merrem 1000 Mg) (06/18/19 19:45) Lactated Ringers (Lr 1000 Ml Iv Solution (06/18/19 19:36) Meropenem (Merrem 500 Mg) (06/18/19 20:56) Water (Sterile) For Injection (Sterile W (06/18/19 20:56) Medications Given in ED Current Medications Medications Dose Ordered Sig/Yanira Route Start Time Stop Time Status Last Admin Dose Admin Fentanyl Citrate 50 mcg ONCE ONCE IVP 06/18/19 17:45 06/18/19 17:46 DC 06/18/19 17:58 50 MCG Iohexol 100 ml ONCE ONCE IV 06/18/19 18:15 06/18/19 18:16 DC 06/18/19 19:44 100 ML Lactated Ringer's 1,000 ml @ 0 mls/hr Q0M ONCE IV 06/18/19 17:31 06/18/19 17:36 DC 06/18/19 17:58 0 MLS/HR Lactated Ringer's 1,000 ml @ 0 mls/hr Q0M ONCE IV 06/18/19 19:36 06/18/19 19:38 DC 06/18/19 20:57 999 MLS/HR Meropenem 1000 mg/ Sterile Water 20 ml @ 240 mls/hr ONCE ONCE IV 06/18/19 19:45 06/18/19 19:49 DC 06/18/19 21:02 240 MLS/HR Promethazine HCl 25 mg ONCE ONCE IVP 06/18/19 17:45 06/18/19 17:46 DC 06/18/19 17:58 25 MG Sodium Chloride 10 ml NEEDED PRN IV 06/18/19 18:15 06/18/19 19:44 10 ML Sodium Chloride 100 ml ONCE ONCE IV 06/18/19 18:15 06/18/19 18:16 DC 06/18/19 19:44 80 ML Vital Signs/I&O 06/18/19 17:17 Temp 36.2 Pulse 104 Resp 16 B/P (MAP) 130/81 (97) Pulse Ox 92 O2 Delivery Room Air Capillary Refill : Progress Note : Time: 17:57 Progress Note Older comorbid chronically ill male with history of ischemic colitis and recurrent bowel obstruction who presents with intractable vomiting and watery high ostomy output over the past 4 days. Plan for large workup as noted including CT scan of the abdomen and pelvis with IV contrast, IV fluid rehydration, symptom control and admission to the hospital. Patient and his family understand and agree with this plan of care. Update 2100: Workup is complete and reveals high-grade bowel obstruction as above, with some associated questionable proctitis. There is also a new pulmonary infiltrate, in context most suspicious for an aspiration pneumonitis or pneumonia given that the patient has been copiously vomiting for the past 4 days. Patient has been covered with meropenem after cultures were drawn. He is declining an NG tube and wishes to wait until he gets to [facility] for this to be placed. I counseled him that he will feel better if his stomach and bowels are decompressed but he continues to insist that he wants to wait. We will respect his wishes in this matter. Case is discussed with Dr. Carmen liriano usly accepts for inpatient admission to [facility]. Hospitalist will be consult to during the admission for assistance in medical management. We will proceed with transfer for inpatient admission at [facility] at this time. Patient stable for transfer. ECG EKG : Comment Sinus rhythm, no acute ST elevation, minimal ST depressions in anterior lateral leads, MD 129, QRS 93, QTC 47, EP interpretation. Rate is 94. Diagnostic Imaging Comments CHEST 1 VIEW AP/PA ONLY INDICATION: Abdominal pain, nausea, vomiting COMPARISON: 06/17/2019 TECHNIQUE: Single radiograph of the chest dated 06/18/2019 FINDINGS: Cardiac silhouette and pulmonary vasculature within normal limits and stable. The left lung remains clear. New infiltrate is noted within the right lung base. No significant pleural effusion. No pneumothorax. No acute osseous abnormality. Dilated loops of bowel within the upper abdomen. IMPRESSION: New right basilar infiltrate, possibly related to pneumonia or aspiration. Dilated loops of bowel within the right upper abdomen. This could relate to underlying bowel obstruction. CT of the abdomen and pelvis is recommended for further evaluation. At time of dictation, this has already been performed. Dictated by: Dictated on workstation # [id number] Date of Exam:06/18/19 CT ABDOMEN/PELVIS W PROCEDURE: CT abdomen and pelvis with contrast. TECHNIQUE: Multiple contiguous axial images were obtained through the abdomen and pelvis after administration of intravenous contrast. Auto Exposure Controls were utilized during the CT exam to meet ALARA standards for radiation dose reduction. INDICATION: Pain, nausea, vomiting COMPARISON: 02/08/2019 FINDINGS: New right basilar infiltrate is present. The left lung is clear. Mild background emphysematous changes. Distal esophagus is fluid-filled. The liver, spleen, adrenal glands, and pancreas are unremarkable. The kidneys are unremarkable. Postsurgical changes are again identified associated with the distal abdominal aorta. Mild aneurysmal dilatation of the distal abdominal aorta is again noted measuring just over 3 cm. The urinary bladder is unremarkable. Prostatic calcifications. Surgical clips in the bilateral inguinal regions. A left lower quadrant ostomy is again identified. Severe small bowel dilatation is present measuring near 8 cm in maximal transverse dimension. Transition point is noted within the lower pelvis near midline. Distal to this location appears decompressed with a loop of bowel coursing to the ostomy appearing completely decompressed. No significant parastomal hernia. Significant dilation of the stomach. Mural thickening of the rectum with adjacent fat stranding is present, slightly worsened since the prior exam. Small fat-containing bilateral inguinal hernias. No pneumatosis. No portal venous gas. No adenopathy. No free air. Scattered osseous degenerative changes without acute osseous abnormality. IMPRESSION: Findings concerning for a high-grade bowel obstruction with a transition point within the midline lower pelvis. Of note, this does appear relatively similar though worsened when compared to prior examination from January 2019. Mural thickening and fat stranding about the adjacent rectum and distal sigmoid colon. This may relate to underlying proctitis. Right basilar pulmonary infiltrate which may relate to pneumonia or aspiration. This is new from prior imaging. Postsurgical changes associated with the bowel and aorta/aortic branch vessels. Results were relayed by phone and faxed to [facility] at 8:44 p.m., by anaya (for NK). Dictated by: Dictated on workstation # [id number] Departure Impression Primary Impression: Small bowel obstruction Additional Impression: Aspiration pneumonia due to vomitus Qualified Codes: J69.0 - Pneumonitis due to inhalation of food and vomit Disposition: ADMITTED INPATIENT Condition: Stable Departure-Patient Inst. Referrals: LESA URBINA MD (PCP/Family) Primary Care Physician TEDDY VIDES MD Jun 18, 2019 17:44
[2019-06-18] MEDS ORDERED: fentaNYL INJECTION 100 MCG/2 ML AMP IVP ONE (17:45)
[2019-06-18] MEDS ORDERED: PROMETHAZINE INJ 25 MG/ML (PHENERGAN) AMP IVP ONE (17:45)
[2019-06-18 18:00] LABS: HEMATOCRIT 42 % (40-54); HEMOGLOBIN 13.6 G/DL (13.3-17.7); MEAN CORPUSCULAR HEMOGLOBIN 28 PG (25-34); MEAN CORPUSCULAR HGB CONC 33 G/DL (32-36); MEAN CORPUSCULAR VOLUME 86 FL (80-99); PLATELET COUNT 471 10^3/uL (130-400); RED CELL DISTRIBUTION WIDTH 15.9 % (10.0-14.5)
[2019-06-18 18:01] LABS: BASOPHILS % (AUTO) 0 % (0-10); EOSINOPHILS % (AUTO) 0 % (0-10); LYMPHOCYTES % (AUTO) 13 % (12-44); MEAN PLATELET VOLUME 9.6 FL (7.4-10.4); MONOCYTES # (AUTO) 0.9 X 10^3 (0.0-1.0); MONOCYTES % (AUTO) 6 % (0-12); NEUTROPHILS % (AUTO) 80 % (42-75)
[2019-06-18] MEDS ORDERED: IOHEXOL 350 MG/ML 100 ML (OMNIPAQUE 350) VIAL IV ONE (18:15)
[2019-06-18] MEDS ORDERED: CATHETER FLUSH 10 ML SYR IV PRN (18:15)
[2019-06-18] MEDS ORDERED: NS 100 ML (IVPB) BAG IV ONE (18:15)
[2019-06-18] MEDS ORDERED: HOLD METFORMIN - RECEIVED CONTRAST 20 ML VIAL IV SCH (18:15)
[2019-06-18 18:25] LABS: POTASSIUM 3.4 MMOL/L (3.6-5.0); SODIUM 137 MMOL/L (135-145)
[2019-06-18 18:26] LABS: ALANINE AMINOTRANSFERASE 11 U/L (0-55); ALBUMIN 3.8 GM/DL (3.2-4.5); ALKALINE PHOSPHATASE 72 U/L (40-136); BILIRUBIN,TOTAL 0.3 MG/DL (0.1-1.0); BUN/CREATININE RATIO 25; CALCIUM 8.3 MG/DL (8.5-10.1); CARBON DIOXIDE 29 MMOL/L (21-32); CHLORIDE 88 MMOL/L (98-107); CREATININE SERUM 1.01 MG/DL (0.60-1.30); GFR ESTIMATED > 60; GLUCOSE 146 MG/DL (70-105); LIPASE 30 U/L (8-78); TOTAL PROTEIN 7.6 GM/DL (6.4-8.2)
[2019-06-18 18:33] LABS: BAND NEUTROPHILS 10 %; BASOPHILS % (MANUAL) 0 %; EOSINOPHILS % (MANUAL) 0 %; LYMPHOCYTES % (MANUAL) 16 %; MONOCYTES % (MANUAL) 10 %; NEUTROPHILS % (MANUAL) 62 %; RBC MORPH NORMAL; REACTIVE LYMPHOCYTES 2 %
--- NOTE | 2019-06-18 19:19 | Diagnostic Imaging Report ---
INDICATION: Abdominal pain, nausea, vomiting COMPARISON: 06/17/2019 TECHNIQUE: Single radiograph of the chest dated 06/18/2019 FINDINGS: Cardiac silhouette and pulmonary vasculature within normal limits and stable. The left lung remains clear. New infiltrate is noted within the right lung base. No significant pleural effusion. No pneumothorax. No acute osseous abnormality. Dilated loops of bowel within the upper abdomen. IMPRESSION: New right basilar infiltrate, possibly related to pneumonia or aspiration. Dilated loops of bowel within the right upper abdomen. This could relate to underlying bowel obstruction. CT of the abdomen and pelvis is recommended for further evaluation. At time of dictation, this has already been performed. Dictated by: Dictated on workstation # [id number]
[2019-06-18] MEDS ORDERED: MEROPENEM 1,000 MG in WATER (STERILE) FOR INJECTION 20 ML IV ONE (19:45)
--- NOTE | 2019-06-18 20:45 | Diagnostic Imaging Report ---
PROCEDURE: CT abdomen and pelvis with contrast. TECHNIQUE: Multiple contiguous axial images were obtained through the abdomen and pelvis after administration of intravenous contrast. Auto Exposure Controls were utilized during the CT exam to meet ALARA standards for radiation dose reduction. INDICATION: Pain, nausea, vomiting COMPARISON: 02/08/2019 FINDINGS: New right basilar infiltrate is present. The left lung is clear. Mild background emphysematous changes. Distal esophagus is fluid-filled. The liver, spleen, adrenal glands, and pancreas are unremarkable. The kidneys are unremarkable. Postsurgical changes are again identified associated with the distal abdominal aorta. Mild aneurysmal dilatation of the distal abdominal aorta is again noted measuring just over 3 cm. The urinary bladder is unremarkable. Prostatic calcifications. Surgical clips in the bilateral inguinal regions. A left lower quadrant ostomy is again identified. Severe small bowel dilatation is present measuring near 8 cm in maximal transverse dimension. Transition point is noted within the lower pelvis near midline. Distal to this location appears decompressed with a loop of bowel coursing to the ostomy appearing completely decompressed. No significant parastomal hernia. Significant dilation of the stomach. Mural thickening of the rectum with adjacent fat stranding is present, slightly worsened since the prior exam. Small fat-containing bilateral inguinal hernias. No pneumatosis. No portal venous gas. No adenopathy. No free air. Scattered osseous degenerative changes without acute osseous abnormality. IMPRESSION: Findings concerning for a high-grade bowel obstruction with a transition point within the midline lower pelvis. Of note, this does appear relatively similar though worsened when compared to prior examination from January 2019. Mural thickening and fat stranding about the adjacent rectum and distal sigmoid colon. This may relate to underlying proctitis. Right basilar pulmonary infiltrate which may relate to pneumonia or aspiration. This is new from prior imaging. Postsurgical changes associated with the bowel and aorta/aortic branch vessels. Results were relayed by phone and faxed to [facility] at 8:44 p.m., by anaya (for NK). Dictated by: Dictated on workstation # [id number]
[2019-06-18] MEDS ORDERED: WATER (STERILE) FOR INJECTION 20 ML ONE (20:56)
[2019-06-18] MEDS ORDERED: MEROPENEM 500 MG VIAL (MERREM) IV ONE (20:56)
[2019-06-18] MEDS ORDERED: ONDANSETRON 4 MG/2 ML (SDV) Z0FRAN IVP ONE (22:15)
[2019-06-19] VITALS (7 sets, daily range): BP systolic 100–169; BP diastolic 63–80
--- NOTE | 2019-06-19 00:20 | NUR ---
PIOTR BRISCOE admitted to room 432-1, with an admitting diagnosis of bowel obstruction and aspiration pna, on 06/19/19 from [facility] via EMS, accompanied by EMS staff. PIOTR BRISCOE and introduced to surroundings, call light, bed controls, phone, TV, temperature control, lights, meal times, smoking policy, visitor policy, side rail policy, bathrooms and showers. Patient Rights given to patient in the handbook. PIOTR BRISCOE verbalizes understanding that [facility] is not responsible for the loss or damage to any personal effects or valuables that are kept in the patients possession during their hospitalization.
[2019-06-19] MEDS ORDERED: LORazepam INJ 2 MG/ML (ATIVAN) VIAL IV ONE (00:45)
[2019-06-19] MEDS ORDERED: morphine INJ 4 MG/ML 1 ML (VIAL/SYRINGE) IV PRN (00:45)
[2019-06-19] MEDS ORDERED: ONDANSETRON 4 MG/2 ML (SDV) Z0FRAN IV PRN (00:45)
[2019-06-19] MEDS: D5 NS 1000 ML IV SOLUTION 1,000 ML IV SCH ×4 (01:33→23:48)
[2019-06-19] MEDS ORDERED: RT-ALBUTEROL/IPRATROPIUM 3 ML (DUONEB) VIAL INH PRN (01:45)
[2019-06-19] MEDS ORDERED: DIVA250T12 PO (03:48)
[2019-06-19] MEDS ORDERED: MULT1CAP27 PO (04:02)
[2019-06-19] MEDS ORDERED: METO-310 PO (04:04)
[2019-06-19] MEDS ORDERED: MORP-68 PO (04:16)
[2019-06-19] MEDS: MEROPENEM 500 MG/SWFI 10 ML IV PUSH IV SCH ×8 (05:24→23:48)
[2019-06-19 06:05] LABS: BASOPHILS % (AUTO) 0 % (0-10); EOSINOPHILS # (AUTO) 0.1 10^3/uL (0.0-0.3); EOSINOPHILS % (AUTO) 2 % (0-10); HEMATOCRIT 35 % (40-54); HEMOGLOBIN 11.1 G/DL (13.3-17.7); LYMPHOCYTES % (AUTO) 27 % (12-44); MEAN CORPUSCULAR HEMOGLOBIN 28 PG (25-34); MEAN CORPUSCULAR HGB CONC 32 G/DL (32-36); MEAN CORPUSCULAR VOLUME 87 FL (80-99); MEAN PLATELET VOLUME 9.5 FL (7.4-10.4); MONOCYTES # (AUTO) 0.8 X 10^3 (0.0-1.0); MONOCYTES % (AUTO) 10 % (0-12); NEUTROPHILS # (AUTO) 4.5 X 10^3 (1.8-7.8); NEUTROPHILS % (AUTO) 61 % (42-75); PLATELET COUNT 257 10^3/uL (130-400); RED CELL DISTRIBUTION WIDTH 16.1 % (10.0-14.5); WHITE BLOOD COUNT 7.3 10^3/uL (4.3-11.0)
[2019-06-19 06:26] LABS: ALANINE AMINOTRANSFERASE 11 U/L (0-55); ALBUMIN 2.8 GM/DL (3.2-4.5); ALKALINE PHOSPHATASE 52 U/L (40-136); BILIRUBIN,TOTAL 0.3 MG/DL (0.1-1.0); BUN/CREATININE RATIO 21; CALCIUM 7.4 MG/DL (8.5-10.1); CARBON DIOXIDE 24 MMOL/L (21-32); CHLORIDE 99 MMOL/L (98-107); CREATININE SERUM 0.81 MG/DL (0.60-1.30); GFR ESTIMATED > 60; GLUCOSE 118 MG/DL (70-105); POTASSIUM 2.9 MMOL/L (3.6-5.0); SODIUM 135 MMOL/L (135-145); TOTAL PROTEIN 5.6 GM/DL (6.4-8.2)
--- NOTE | 2019-06-19 06:43 | NUR ---
Dr. Vital notified of consult for medical management and DVT score of 5. No new orders rec.
[2019-06-19] MEDS ORDERED: FENT1PAT8 TD (06:46)
--- NOTE | 2019-06-19 07:37 | NUR ---
Dr. Morales informed of K+ at 2.9. New order rec to start Electrolyte protocol. also informed of DVT score at 5. No Lovenox at this time since surgery is possible - SCD's only (however, pt refuses SCD's and this has been documented).
[2019-06-19] MEDS: POTASSIUM CL 10MEQ/50ML IVPB 50 ML IV SCH ×8 (08:00→20:40)
--- NOTE | 2019-06-19 08:00 | NUR ---
magnesium and potassium ordered per protocol 6g magnesium 50meq potassium
--- NOTE | 2019-06-19 08:24 | NUR ---
critical magnesium 0.8 magnesium given per ordered protocol
[2019-06-19] MEDS: RT-ALBUTEROL/IPRATROPIUM 3 ML (DUONEB) VIAL INH SCH ×2 (08:30→19:10)
[2019-06-19] MEDS: MAGNESIUM 1 GM/100 ML IVPB 100 ML IV SCH ×7 (08:51→14:25)
[2019-06-19] MEDS ORDERED: POTASSIUM CL 10MEQ/50ML IVPB 50 ML IV SCH (12:15)
--- NOTE | 2019-06-19 14:15 | Consultation - Hospitalist ---
HPI History of Present Illness: HPI/Chief Complaint The patient is a 63-year-old male with extensive past medical history including hypertension, hyperlipidemia, peripheral vascular disease, history of stroke at the age of 29, tobacco and alcohol abuse, history of abdominal aortic aneurysm status post repair, history of recurrent small bowel obstruction, history of ischemic colitis in 2019, colectomy status post colostomy. Patient presents for reevaluation of generalized abdominal pain, watery high ostomy output and copious nonbloody vomiting, all with onset 4 days ago. Patient was seen in his doctor's office 2 days ago and in this emergency department yesterday. When seen yesterday laboratory evaluation was generally unremarkable aside from leuk ocytosis to about 16,000. Patient was hydrated with 2 L of crystalloid and had antinausea medication administered parenterally and improved and was discharged home. He presents today stating that his symptoms are entirely unchanged and unimproved. He has vomited greater than 20 times over the last 24 hours and has been unable to hold any food or fluids down for the last several days. He appears clinically dehydrated. As above, he reports generalized abdominal discomfort and no specific area in his abdomen is focally tender. He reports an associated cough which is chronic and not worse than usual today. He denies associated fevers, hematemesis, hematochezia, melena, upper respiratory congesti on/rhinorrhea, shortness of breath or chest pain, flank pain, back pain, dysuria or hematuria. Date Seen 06/19/19 Attending Physician Simon Morales Pankaj K MD Referring Physician Date of Admission Jun 18, 2019 at 22:30 Home Medications & Allergies Home Medications Reviewed patient Home Medication Reconciliation performed by pharmacy medication reconciliations dental technician and/or nursing. Patients Allergies have been reviewed. Allergies Allergies Coded Allergies oxycodone (Verified Allergy, Intermediate, HIVES, 04/18/17) Penicillins (Unverified Allergy, Unknown, 02/10/19) Sulfa (Sulfonamide Antibiotics) (Verified Allergy, Unknown, 04/08/17) codeine (Verified Allergy, Unknown, 04/08/17) Past Jfpwfyx-Ozrzos-Tcophc Hx Past Med/Social Hx: Reviewed Nursing Past Med/Soc Hx, Reviewed and Corrections made Patient Social History Alcohol Use: Denies Use Recreational Drug Use: No Smoking Status: Current Everyday Smoker Type Used: Cigarettes, Electronic/Vapor 2nd Hand Smoke Exposure: No Recent Foreign Travel: No Contact w/other who traveled: No Recent Hopitalizations: No Recent Infectious Disease Expo: No Immunizations Up To Date Tetanus Booster (TDap): Unknown Date of Influenza Vaccine: Feb 08, 2019 Seasonal Allergies Seasonal Allergies: No Past Medical History Surgeries: Appendectomy, Bowel Surgery Cardiac: Aneurysm Gastrointestinal: Gastroesophageal Reflux, Obstructive Bowel, Chronic Constipation Psychosocial: Anxiety, Depression Skin/Integumentary: Recent Skin Changes History of Blood Disorders: Yes (Chronic Anemia) Family History Reviewed Nursing Family Hx Cardiovascular disease 19 FATHER Completed stroke 19 FATHER Diabetes mellitus 19 MOTHER Glaucoma 19 MOTHER Hypertension 19 FATHER 19 MOTHER G8 BROTHER Myocardial infarction 19 FATHER No Pertinent Family Hx Review of Systems Constitutional: see HPI Physical Exam Physical Exam Vital Signs Vital Signs - First Documented 06/18/19 17:17 Temp 36.2 Pulse 104 Resp 16 B/P (MAP) 130/81 (97) Pulse Ox 92 O2 Delivery Room Air Capillary Refill : Less Than 3 Seconds Height, Weight, BMI Height: 5'6.00" Weight: 164lbs. 0.0oz. 74.582812qu; 21.97 BMI Method:Stated General Appearance: No Apparent Distress, Chronically ill Respiratory: Other (sonorous rhonchi with some right lower lobe rales no wheezing appreciated.) Cardiovascular: Regular Rate, Rhythm, No Edema, No Gallop, No JVD, No Murmur (very difficult to appreciate however over breath sounds that are quite coarse), Normal Peripheral Pulses Gastrointestinal: Distended, Other (bowel sounds absence currently nontender to palpation.) Extremity: No Pedal Edema, Other (significant muscle wasting symmetrical extremities noted) Results Results/Procedures Labs Laboratory Tests 06/18/19 17:45 06/19/19 05:38 Patient resulted labs reviewed. Assessment/Plan Assessment and Plan Assess & Plan/Chief Complaint 1. Bowel obstruction versus ileus continue NG decompression. 2. Malnutrition likely due to alcoholism no evidence for withdrawal continue to monitor. 3. COPD. 4. Likely right lower lobe pneumonitis aspiration related continue to monitor. 5. Multiple medical comorbidities extremely poor performance status prognosis guarded complications expected. 6. Severe hypomagnesemia and hypokalemia related to malnutrition being replaced. If this patient is lupe this is the cause of an ileus and it is not related to mechanical obstruction. Critical Care Critically Ill Patient Clinical Quality Measures DVT/VTE Risk/Contraindication: Risk Factor Score Per Nursin RFS Level Per Nursing on Admit: 4+=Very High REHANA CROOKS MD Jun 19, 2019 14:15
[2019-06-19] MEDS ORDERED: PANTOPRAZOLE 40 MG (PROTONIX) VIAL IV ONE (14:30)
--- NOTE | 2019-06-19 15:08 | Consultation - Surgery ---
[facility] 06/19/19 1508: History of Present Illness History of Present Illness Patient Consulted On(janes/time) 06/19/19 14:57 Date Seen by Provider: Jun 19, 2019 Time Seen by Provider: 13:33 History of Present Illness This is a 63 y/o male with history of multiple comorbidities who was admitted for possible bowel obstruction. Per , pt has been having diffuse abd pain, d istention, nausea, and multiple episodes of vomiting x5 days. He has been seen by his PCP who sent the to the ED yesterday. ER visit was uneventful w/ no remarkable finding and pt was discharged home after receiving antiemetics and IVF. Pt reported to the hospital again today as his sx were not improving. no Fever, sx of GIB, colostomy malfunction, or any other sx were reported. Allergies and Home Medications Allergies Coded Allergies: oxycodone (Verified Allergy, Intermediate, HIVES, 04/18/17) Penicillins (Unverified Allergy, Unknown, 02/10/19) Sulfa (Sulfonamide Antibiotics) (Verified Allergy, Unknown, 04/08/17) codeine (Verified Allergy, Unknown, 04/08/17) Home Medications Citalopram Hydrobromide 20 Mg Tablet, 20 MG PO BID, (Reported) Divalproex Sodium 250 Mg Tablet.dr, 250 MG PO BID, (Reported) Fentanyl 1 Each Patch.td72, 25 MCG TD Q72H, (Reported) LAST FILLED #10 (PLEASE SEE NOTE) PT'S SAYS PATCH WAS APPLIED ON 06-17-2019 BUT FELT LIKE IT WAS CAUSING MORE ISSUES SO SHE REMOVED IT Iron Polysaccharide Complex 150 Mg Capsule, 150 MG PO DAILY, (Reported) Lactulose 10 Gm/15 Ml Solution, 30 ML PO BID PRN for CONSTIPATION-3RD LINE, ( Reported) Magnesium Oxide 400 Mg Tablet, 400 MG PO 1200, (Reported) Meloxicam 7.5 Mg Tablet, 7.5 MG PO DAILY PRN for ARTHRITIS PAIN, (Reported) Metoclopramide HCl 10 Mg Tablet, 10 MG PO BIDAC, (Reported) Mirtazapine 15 Mg Tablet, 15 MG PO HS, (Reported) Morphine Sulfate 30 Mg Tablet.er, 30 MG PO BID, (Reported) TAKE WITH 15 MG MORPHINE SULFATE ER TO EQUAL 45 MG Morphine Sulfate 15 Mg Tablet.er, 15 MG PO BID, (Reported) TAKE WITH 30 MG MORPHINE SULFATE ER TO EQUAL 45 MG Multivitamin 1 Each Capsule, 1 EACH PO DAILY, (Reported) Ondansetron 4 Mg Tab.rapdis, 4 MG PO Q8H PRN for NAUSEA/VOMITING-1ST LINE, (Reported) Pantoprazole Sodium 40 Mg Tablet.dr, 40 MG PO DAILY, (Reported) LAST FILLED 04-11-2019 #30 Past Pdfgzkr-Xttlkf-Klovpy Hx Patient Social History Alcohol Use: Denies Use Recreational Drug Use: No Smoking Status: Current Everyday Smoker Type Used: Cigarettes, Electronic/Vapor 2nd Hand Smoke Exposure: No Recent Foreign Travel: No Contact w/Someone Who Travel: No Recent Infectious Disease Expo: No Recent Hopitalizations: No Immunizations Up To Date Tetanus Booster (TDap): Unknown Date of Influenza Vaccine: Feb 08, 2019 Seasonal Allergies Seasonal Allergies: No Surgeries History of Surgeries: Yes (AAA rupture repair, colostomy, wound debriedment, femoral emboloectomy) Surgeries: Appendectomy, Bowel Surgery Respiratory History of Respiratory Disorde: Yes Respiratory Disorders: COPD Cardiovascular History of Cardiac Disorders: Yes (AAA - HX of rupture) Cardiac Disorders: Aneurysm Neurological History of Neurological Disord: Yes (Encephalopathy, CVD) Genitourinary History of Genitourinary Disor: Yes (Retention hx) Gastrointestinal History of Gastrointestinal Di: Yes (Colostomy d/t ischemic colitis) Gastrointestinal Disorders: Gastroesophageal Reflux, Obstructive Bowel, Chronic Constipation Musculoskeletal History of Musculoskeletal Dis: Yes (Debility, extreme weakness) Endocrine History of Endocrine Disorders: No HEENT History of HEENT Disorders: No Cancer History of Cancer: No Psychosocial History of Psychiatric Problem: Yes Behavioral Health Disorders: Anxiety, Depression Integumentary History of Skin or Integumenta: Yes (abdomen, sacrum, HX stage IV) Skin/Integumentary Disorders: Recent Skin Changes Blood Transfusions History of Blood Disorders: Yes (Chronic Anemia) Family Medical History Significant Family History: No Pertinent Family Hx Family Medial History: Cardiovascular disease 19 FATHER Completed stroke 19 FATHER Diabetes mellitus 19 MOTHER Glaucoma 19 MOTHER Hypertension 19 FATHER 19 MOTHER G8 BROTHER Myocardial infarction 19 FATHER Review of Systems-General Constitutional: No chills, No fever Respiratory: No cough, No dyspnea on exertion, No short of breath Cardiovascular: No chest pain, No palpitations Gastrointestinal: abdominal pain; No constipation, No diarrhea, No hematemesis; nausea, vomiting Genitourinary: No dysuria, No frequency Physical Exam-General Problems Physical Exam Vital Signs Vital Signs - First Documented 06/18/19 17:17 Temp 36.2 Pulse 104 Resp 16 B/P (MAP) 130/81 (97) Pulse Ox 92 O2 Delivery Room Air Capillary Refill : Less Than 3 Seconds General Appearance: WD/WN, cachetic, other (chronically ill) Neck: full range of motion, normal inspection Respiratory: chest non-tender, no respiratory distress, no accessory muscle use Cardiovascular: regular rate, rhythm Gastrointestinal: non tender, soft, distended, other (colostomy bag intact and draining well) Extremities: non-tender, normal inspection, no pedal edema Neurologic/Psychiatric: alert, oriented x 3 Skin: normal color, warm/dry Lymphatic: no adenopathy Data Review Labs Laboratory Tests 06/18/19 17:45: White Blood Count 15.0H, Red Blood Count 4.89, Hemoglobin 13.6, Hematocrit 42, Mean Corpuscular Volume 86, Mean Corpuscular Hemoglobin 28, Mean Corpuscular Hemoglobin Concent 33, Red Cell Distribution Width 15.9H, Platelet Count 471H, Mean Platelet Volume 9.6, Neutrophils (%) (Auto) 80H, Lymphocytes (%) (Auto) 13, Monocytes (%) (Auto) 6, Eosinophils (%) (Auto) 0, Basophils (%) (Auto) 0, Neutrophils # (Auto) 12.0H, Lymphocytes # (Auto) 2.0, Monocytes # (Auto) 0.9, Eosinophils # (Auto) 0.0, Basophils # (Auto) 0.0, Neutrophils % (Manual) 62, Lymphocytes % (Manual) 16, Monocytes % (Manual) 10, Eosinophils % (Manual) 0, Basophils % (Manual) 0, Band Neutrophils 10, Reactive Lymphocytes 2, Blood Morphology Comment NORMAL, Sodium Level 137, Potassium Level 3.4L, Chloride Level 88L, Carbon Dioxide Level 29, Anion Gap 20H, Blood Urea Nitrogen 25H, Creatinine 1.01, Estimat Glomerular Filtration Rate > 60, BUN/Creatinine Ratio 25, Glucose Level 146H, Lactic Acid Level 1.33, Calcium Level 8.3L, Corrected Calcium 8.5, Total Bilirubin 0.3, Aspartate Amino Transf (AST/SGOT) 14, Alanine Aminotransferase (ALT/SGPT) 11, Alkaline Phosphatase 72, Troponin I < 0.30, Total Protein 7.6, Albumin 3.8, Lipase 30, Serum Alcohol < 10 06/19/19 05:38: White Blood Count 7.3, Red Blood Count 4.00L, Hemoglobin 11.1L, Hematocrit 35L, Mean Corpuscular Volume 87, Mean Corpuscular Hemoglobin 28, Mean Corpuscular Hemoglobin Concent 32, Red Cell Distribution Width 16.1H, Platelet Count 257, Mean Platelet Volume 9.5, Neutrophils (%) (Auto) 61, Lymphocytes (%) (Auto) 27, Monocytes (%) (Auto) 10, Eosinophils (%) (Auto) 2, Basophils (%) (Auto) 0, Neutrophils # (Auto) 4.5, Lymphocytes # (Auto) 2.0, Monocytes # (Auto) 0.8, Eosinophils # (Auto) 0.1, Basophils # (Auto) 0.0, Sodium Level 135, Potassium Level 2.9L, Chloride Level 99, Carbon Dioxide Level 24, Anion Gap 12, Blood Urea Nitrogen 17, Creatinine 0.81, Estimat Glomerular Filtration Rate > 60, BUN/Creatinine Ratio 21, Glucose Level 118H, Calcium Level 7.4L, Corrected Calcium 8.4L, Total Bilirubin 0.3, Aspartate Amino Transf (AST/SGOT) 13, Alanine Aminotransferase (ALT/SGPT) 11, Alkaline Phosphatase 52, Total Protein 5.6L, Albumin 2.8L, Magnesium Level 0.8*L Microbiology 06/18/19 Cryptosporidium/Giardia - Preliminary, Resulted Assessment/Plan Assessment/Plan Assessment/Plan 1) Questionable Bowel obstruction/ileus, CT showed considerable stomach dilation, NGT in place, IVF rehydration, will do small bowel follow through tomorrow, NPO, continue conservative management 2) Ischemic colitis w/ colectomy in 2019, Colostomy in place, draining well 3) Chronically ill with multiple comorbidities including COPD, chronic alcoholism, AAA- stated pt wants to be DNR and has signed documentation 4) Severe hypomagnesemia and hypokalemia- Receiving replacement, continue to monitor labs 5) Questionable right lower lobe pneumonitis,Managed by primary care team 6) Stool analysis was negative for C-diff, awaiting results on Cryptosporidium and Giardia screens 7)Leukocytosis from yesterday has resolved, Hgb 11.1, Repeat labs in AM. Clinical Quality Measures DVT/VTE Risk/Contraindication: Risk Factor Score Per Nursin RFS Level Per Nursing on Admit: 4+=Very High SIMON MORALES DO 06/20/191920: History of Present Illness History of Present Illness History of Present Illness CC: bowel obstruction. Patient is a 63 year old male that has history of small bowel obstructions. patient for about 5 days had been having nausea and vomiting. Diffuse abdominal pain and distention as well. Patient was having some output from colostomy but symptoms continued. Patient states pain was moderate to severe. Nothing was really making better or worse. No radiation of pain. Was seen in [facility] er with ct scan suggestive of high grade small bowel obstruction, right basilar infiltrate and inflammation in plevis maybe proctitis. Ng tub in place, NPO today and having slight gas through colostomy. Allergies and Home Medications Allergies Coded Allergies: oxycodone (Verified Allergy, Intermediate, HIVES, 04/18/17) Penicillins (Unverified Allergy, Unknown, 02/10/19) Sulfa (Sulfonamide Antibiotics) (Verified Allergy, Unknown, 04/08/17) codeine (Verified Allergy, Unknown, 04/08/17) Home Medications Citalopram Hydrobromide 20 Mg Tablet, 20 MG PO BID, (Reported) Divalproex Sodium 250 Mg Tablet.dr, 250 MG PO BID, (Reported) Fentanyl 1 Each Patch.td72, 25 MCG TD Q72H, (Reported) LAST FILLED #10 (PLEASE SEE NOTE) PT'S SAYS PATCH WAS APPLIED ON 06-17-2019 BUT FELT LIKE IT WAS CAUSING MORE ISSUES SO SHE REMOVED IT Iron Polysaccharide Complex 150 Mg Capsule, 150 MG PO DAILY, (Reported) Lactulose 10 Gm/15 Ml Solution, 30 ML PO BID PRN for CONSTIPATION-3RD LINE, (Reported) Magnesium Oxide 400 Mg Tablet, 400 MG PO 1200, (Reported) Meloxicam 7.5 Mg Tablet, 7.5 MG PO DAILY PRN for ARTHRITIS PAIN, (Reported) Metoclopramide HCl 10 Mg Tablet, 10 MG PO BIDAC, (Reported) Mirtazapine 15 Mg Tablet, 15 MG PO HS, (Reported) Morphine Sulfate 30 Mg Tablet.er, 30 MG PO BID, (Reported) TAKE WITH 15 MG MORPHINE SULFATE ER TO EQUAL 45 MG Morphine Sulfate 15 Mg Tablet.er, 15 MG PO BID, (Reported) TAKE WITH 30 MG MORPHINE SULFATE ER TO EQUAL 45 MG Multivitamin 1 Each Capsule, 1 EACH PO DAILY, (Reported) Ondansetron 4 Mg Tab.rapdis, 4 MG PO Q8H PRN for NAUSEA/VOMITING-1ST LINE, (Reported) Pantoprazole Sodium 40 Mg Tablet.dr, 40 MG PO DAILY, (Reported) LAST FILLED 04-11-2019 #30 Patient Home Medication List Home Medication List Reviewed: Yes Past Bwscvor-Npesvc-Numblc Hx Reviewed Nursing Assessment Reviewed/Agree w Nursing PMH: Yes Family Medical History Significant Family History: No Pertinent Family Hx Family Medial History: Cardiovascular disease 19 FATHER Completed stroke 19 FATHER Diabetes mellitus 19 MOTHER Glaucoma 19 MOTHER Hypertension 19 FATHER 19 MOTHER G8 BROTHER Myocardial infarction 19 FATHER Review of Systems-General Constitutional: No chills, No diaphoresis, No fever EENTM: No hearing loss, No blurred vision Respiratory: No cough, No dyspnea on exertion, No short of breath Cardiovascular: No chest pain, No palpitations Gastrointestinal: abdominal pain; No constipation, No diarrhea, No hematemesis; nausea, vomiting Genitourinary: No dysuria; frequency Musculoskeletal: No back pain, No joint pain, No neck pain Skin: No change in color, No change in hair/nails Psychiatric/Neurological: Denies Anxiety, Denies Depressed, Denies Emotional Problems Physical Exam-General Problems Physical Exam General Appearance: WD/WN, no apparent distress HEENT: PERRL/EOMI Neck: full range of motion, supple, normal inspection Respiratory: chest non-tender, no respiratory distress, no accessory muscle use Cardiovascular: regular rate, rhythm Gastrointestinal: distended, tenderness (minimal tenderness), other (colostomy llq, appears to have small amount of gas in bag) Rectal: deferred Back: normal inspection, no CVA tenderness Extremities: non-tender, normal inspection, no pedal edema Neurologic/Psychiatric: timber deadener II-XII nml as tested, no motor/sensory deficits, alert, normal mood/affect, oriented x 3 Skin: normal color, warm/dry Lymphatic: no adenopathy Assessment/Plan Assessment/Plan Assessment/Plan small bowel obstruction right lower pulmonary infiltrate nausea and vomiting hypokalemia, hypomagnesemia hx of ischemic colitis patient with at least partial small bowel obstruction, ng tube placed. Conservative measures before. Replace electrolytes with protocol. Small bowel follow through tomorrow. Supervisory-Addendum Brief Verification & Attestation Participated in pt care: history, MDM, physical Personally performed: exam, history, MDM, supervision of care Care discussed with: Medical Student Procedures: n/a Results interpretation: Verified all documentation Verification and Attestation of Medical Student E/M Service A medical student performed and documented this service in my presence. I reviewed and verified all information documented by the medical student and made modifications to such information, when appropriate. I personally performed the physical exam and medical decision making. Simon Morales, Jun 19, 2019,19:28 [facility] Jun 19, 2019 15:08 SIMON MORALES DO Jun 20, 2019 19:21
[2019-06-19] MEDS: morphine INJ 4 MG/ML 1 ML (VIAL/SYRINGE) IV PRN (21:24)
[2019-06-20] VITALS: BP 114/65
[2019-06-20 04:00] VITALS: BP 109/58
[2019-06-20] MEDS: morphine INJ 4 MG/ML 1 ML (VIAL/SYRINGE) IV PRN ×6 (04:36→23:05)
[2019-06-20] MEDS: MEROPENEM 500 MG/SWFI 10 ML IV PUSH IV SCH ×6 (05:40→16:57)
[2019-06-20 07:00] LABS: BUN/CREATININE RATIO 13; CALCIUM 7.5 MG/DL (8.5-10.1); CARBON DIOXIDE 25 MMOL/L (21-32); CHLORIDE 107 MMOL/L (98-107); CREATININE SERUM 0.63 MG/DL (0.60-1.30); GFR ESTIMATED > 60; GLUCOSE 125 MG/DL (70-105); MAGNESIUM 2.1 MG/DL (1.6-2.4); PHOSPHORUS 1.6 MG/DL (2.3-4.7); SODIUM 139 MMOL/L (135-145)
[2019-06-20] MEDS: MAGNESIUM 1 GM/100 ML IVPB 100 ML IV SCH (07:03)
[2019-06-20] MEDS: KCL 20 MEQ TAB (K-DUR) PO SCH (07:03)
[2019-06-20] MEDS: POTASSIUM CL 10MEQ/50ML IVPB 50 ML IV SCH ×5 (07:04→12:21)
[2019-06-20] MEDS ORDERED: POTASSIUM CL 10MEQ/50ML IVPB 50 ML IV NR (07:15)
[2019-06-20] MEDS: PANTOPRAZOLE 40 MG (PROTONIX) VIAL IV SCH (07:49)
[2019-06-20] MEDS: D5 NS 1000 ML IV SOLUTION 1,000 ML IV SCH ×3 (07:51→23:35)
[2019-06-20 08:08] VITALS: BP 120/70
[2019-06-20] MEDS: NICOTINE 21 MG (NICODERM) PATCH TD SCH (08:17)
[2019-06-20] MEDS: RT-ALBUTEROL/IPRATROPIUM 3 ML (DUONEB) VIAL INH SCH ×2 (10:08→22:29)
--- NOTE | 2019-06-20 10:29 | Progress Note ---
Subjective Subjective/Events-last exam Minimally improved, but hopeful to go home soon. Focused Exam Lactate Level 06/18/19 17:45: Lactic Acid Level 1.33 Objective Exam Last Set of Vital Signs Vital Signs Date Time Temp Pulse Resp B/P (MAP) Pulse Ox O2 Delivery O2 Flow Rate FiO2 06/20/19 10:08 96 Nasal Cannula 1.00 06/20/19 08:08 37.4 67 20 120/70 (87) Capillary Refill : Less Than 3 Seconds I&O Intake and Output 06/20/19 00:00 Intake Total 1980 ml Output Total 2450 ml Balance -470 ml Intake Oral 0 ml IV Total 1980 ml Output Urine Total 550 ml Stool Total 450 ml Gastric Drainage Total 1200 ml Drainage Total 250 ml Daily Weight Change No No General: Alert, Mild Distress Lungs: Clear to Auscultation, Normal Air Movement Heart: Regular Rate, No Murmurs Abdomen: Normal Bowel Sounds, Other (ostomy with output, NG with dark drainage) Psych/Mental Status: Other (affect flat) Results/Procedures Lab Laboratory Tests 06/19/19 16:25: Potassium Level 3.4L 06/19/19 17:38: Magnesium Level 2.7H 06/20/19 06:13: Potassium Level 3.0L, Magnesium Level 2.1, Sodium Level 139, Chloride Level 107, Carbon Dioxide Level 25, Anion Gap 7, Blood Urea Nitrogen 8, Creatinine 0.63, Estimat Glomerular Filtration Rate > 60, BUN/Creatinine Ratio 13, Glucose Level 125H, Calcium Level 7.5L, Phosphorus Level 1.6L Microbiology 06/18/19 Blood Culture - Preliminary, Resulted No growth 06/18/19 Cryptosporidium/Giardia - Preliminary, Resulted Assessment/Plan Assessment/Plan Assessment & Plan 1. Bowel obstruction versus ileus- NG in place, Surgery consulted, appreciate recommendations, on meropenem per Surgery 2. Malnutrition likely due to alcoholism- monitor for signs of withdrawal 3. COPD- no evidence of exacerbation currently 4. Likely right lower lobe pneumonitis aspiration related 5. Severe hypomagnesemia and hypokalemia- replace and follow 6. DVT prophylaxis- enoxaparin Clinical Quality Measures DVT/VTE Risk/Contraindication: Risk Factor Score Per Nursin RFS Level Per Nursing on Admit: 4+=Very High CLIFFORD REDD MD Jun 20, 2019 10:29
[2019-06-20] MEDS ORDERED: DIVA250T2 PO (11:01)
[2019-06-20] MEDS ORDERED: IRON150C3 PO (11:01)
--- NOTE | 2019-06-20 11:15 | Progress Note - Surgery ---
[facility] 06/20/19 1115: Subjective Date Seen by a Provider: Jun 20, 2019 Time Seen by a Provider: 10:20 Subjective/Events-last exam Pt awake. Denies any N/V. Has been passing gas , but reports she has not observed much drainage in colostomy bag. No abd pain or any other sx this time. Review of Systems General: No Chills, No Night Sweats HEENT: No Head Aches, No Visual Changes Pulmonary: No Dyspnea, No Cough Cardiovascular: No: Chest Pain, Palpitations Gastrointestinal: No: Nausea, Vomiting, Abdominal Pain Focused Exam Lactate Level 06/18/19 17:45: Lactic Acid Level 1.33 Objective Exam Vital Signs Date Time Temp Pulse Resp B/P (MAP) Pulse Ox O2 Delivery O2 Flow Rate FiO2 06/20/19 10:08 96 Nasal Cannula 1.00 06/20/19 08:08 37.4 67 20 120/70 (87) 95 Room Air 06/20/19 08:00 Nasal Cannula 2.00 06/20/19 07:00 73 06/20/19 04:00 36.6 72 20 109/58 (75) 92 Room Air 06/20/19 01:00 60 06/20/19 00:00 36.8 65 18 114/65 (81) 94 Room Air 06/19/19 19:30 Nasal Cannula 2.00 06/19/19 19:25 36.4 67 15 114/80 (91) 94 Room Air 06/19/19 19:11 88 Room Air 06/19/19 19:05 67 06/19/19 16:14 36.8 65 15 169/80 (109) 91 Room Air 06/19/19 13:00 68 06/19/19 12:00 36.3 72 18 100/63 (75) 93 Room Air I & O 06/20/19 07:00 Intake Total 1990 ml Output Total 2160 ml Balance -170 ml Capillary Refill : Less Than 3 Seconds General Appearance: No Apparent Distress, Chronically ill Respiratory: Other (sonorous rhonchi with some right lower lobe rales no wh eezing appreciated.) Cardiovascular: Regular Rate, Rhythm, No Edema, No Gallop, No JVD, No Murmur (very difficult to appreciate however over breath sounds that are quite coarse), Normal Peripheral Pulses Gastrointestinal: non tender, soft, other (colostomy bag intact and draining, gas noted) Extremity: No Pedal Edema, Other (significant muscle wasting symmetrical extremities noted) Neurologic/Psychiatric: Alert, Oriented x3 Skin: Normal Color, Warm/Dry Lymphatic: No Adenopathy Results Lab Laboratory Tests 06/19/19 16:25: Potassium Level 3.4L 06/19/19 17:38: Magnesium Level 2.7H 06/20/19 06:13: Potassium Level 3.0L, Magnesium Level 2.1, Sodium Level 139, Chloride Level 107, Carbon Dioxide Level 25, Anion Gap 7, Blood Urea Nitrogen 8, Creatinine 0.63, Estimat Glomerular Filtration Rate > 60, BUN/Creatinine Ratio 13, Glucose Level 125H, Calcium Level 7.5L, Phosphorus Level 1.6L Microbiology 06/18/19 Blood Culture - Preliminary, Resulted No growth 06/18/19 Cryptosporidium/Giardia - Preliminary, Resulted Assessment/Plan Assessment/Plan Assessment/Plan 1) Questionable Bowel obstruction/ileus, CT showed considerable stomach dilation, NGT in place, IVF rehydration, will proceed with small bowel follow through today, NPO, continue conservative management 2) Ischemic colitis w/ colectomy in 2019, Colostomy in place, draining well 3) Chronically ill with multiple comorbidities including COPD, chronic alcoholism, AAA- stated pt wants to be DNR and has signed documentation 4) Severe hypomagnesemia and hypokalemia- Receiving replacement, hypomagnesemia resolved but low K+ persists, also hypophosphatemic, consider replacement, managed by primary care team, continue to monitor labs 5) Stool analysis was negative for C-diff, awaiting results on Cryptosporidium and Giardia screens Clinical Quality Measures DVT/VTE Risk/Contraindication: Risk Factor Score Per Nursin RFS Level Per Nursing on Admit: 4+=Very High BLANQUITA MORALES DO 06/20/19 1934: Subjective Subjective/Events-last exam Had pain over night, better controlled today. Ng tube in place. Not having n/v. Small amount of gas in colostomy bag no stool. Denies fever sweats chills shortness of breath or chest pain. Objective Exam General Appearance: No Apparent Distress, Chronically ill HEENT: PERRL/EOMI Neck: Full Range of Motion, Normal Inspection, Non Tender Respiratory: Chest Non Tender, No Accessory Muscle Use, No Respiratory Distress Cardiovascular: Regular Rate, Rhythm, Normal Peripheral Pulses Gastrointestinal: soft, distended (minimal), other (colostomy bag intact and draining, gas in bag small amount) Extremity: Normal Inspection, No Pedal Edema, Other (muscle wasting symmetrical extremities noted, nontender) Neurologic/Psychiatric: Alert, Oriented x3, Normal Mood/Affect Skin: Normal Color, Warm/Dry Lymphatic: No Adenopathy Assessment/Plan Assessment/Plan Assessment/Plan small bowel obstruction right lower pulmonary infiltrate likely aspiration pneumonia nausea and vomiting hypokalemia, hypomagnesemia hx of ischemic colitis continue medical management small bowel follow through today pain control follow electrolytes on protocol replacement no surgical intervention at this time, if surgical intervention needed family and patient state they are unsure if they would want it. Supervisory-Addendum Brief Verification & Attestation Participated in pt care: history, MDM, physical Personally performed: exam, history, MDM, supervision of care Care discussed with: Medical Student Procedures: n/a Results interpretation: Verified all documentation Verification and Attestation of Medical Student E/M Service A medical student performed and documented this service in my presence. I reviewed and verified all information documented by the medical student and made modifications to such information, when appropriate. I personally performed the physical exam and medical decision making. Blanquita Morales, Jun 20, 2019,19:38 [facility] Jun 20, 2019 11:15 BLANQUITA MORALES DO Jun 20, 2019 19:34
[2019-06-20 12:04] VITALS: BP 118/69
--- NOTE | 2019-06-20 12:15 | NUR ---
SPOKE WITH THE PT'S (SHE TAKES CARE OF HIS MEDS) WENT THRU THE EXT MED HISTORY [facility] THE PT'S SAYS HE IS TAKING MORPHINE 30MG AND 15MG (45MG) BID- THE STATES RECENTLY WENT TO AN APPT AND THE PAIN WAS STILL UNCONTROLLED. THE DR SUGGESTED TO USE FENTANYL. THE PT HAD PREVIOUSLY BEEN PRESCRIBED FENTANYL (LAST PICKED UP SEPTEMBER 2018 #10) BUT HAD QUIT TAKING, SO THEY STILL HAD PATCHES. A PATCH WAS APPLIED ON 06-17-2019 HOWEVER AFTER AN HOUR IT WAS REMOVED BC THE PT'S THOUGHT THE SYMPTOMS WERE GETTING WORSE. MIRTAZAPINE: DIRECTIONS ON THE RX ARE " 2 TABS HS" HOWEVER THE PT IS JUST TAKING 1 TAB HS THE FOLLOWING ARE FILL DATES NOT ON THE EXT MED HISTORY: 03-30-2019 LACTULOSE #[id number] MLS 03-31-2019 ZOFRAN ODT #30 04-04-2019 MIRTAZAPINE #60 04-11-2019 PROTONIX #30 04-11-2019 MELOXICAM #30
--- NOTE | 2019-06-20 14:04 | NUR ---
"RD ASSESSMENT PMHx: COPD; encephalopathy; CVD; GERD; obstructive bowel; chronic alcoholism PT INTERACTION: Pt was asleep during nutrition assessment. Note present at bedside. states pt's current appetite is terrible and has been since 06/15, when he started vomiting after meals. states pt tries to follow low-residue diet d/t colostomy. states pt's bowels have been moving slow and colostomy output is low. states pt weighed 140# in 01/2019, but used to be around 160#. Note pt current wt of 136# per chart review. has concerns of pt's intake d/t poor appetite. ABNORMAL NUTRITION-RELATED LAB VALUES LOW: K 3.0; Ca 7.5; phos 1.6 HIGH: Est. kcal needs: 4309-6889 kcal | 25-30 kcal/kg Est. Pro needs: 62-74 g Pro | 1.0-1.2 g Pro/kg PES STATEMENT: Inadequate oral intake (NI-2.1) related to SBO | NPO status | loss of appetite | vomiting as evidenced by pt () interview | NPO x1d INTERVENTION: Note pt is currently NPO. Pt may benefit from parenteral nutrition given current condition. Would recommend previous kcal and pro estimated needs. Recommend replete phosphorus and current levels are low. Will continue to follow and reassess as pt needs and status change. MONITOR/EVALUATE: PO Intake; Plan of Care; Hydration Status; Weight Status; Lab Values Tray Henry, MS, RD, LD"
[2019-06-20 16:00] VITALS: BP 118/69
[2019-06-20] MEDS ORDERED: DIATRIZOATE MEGLUM/SODIUM 37% 120 ML (GASTROGRAFIN) NG ONE (17:30)
--- NOTE | 2019-06-20 19:25 | Diagnostic Imaging Report ---
INDICATION: Small bowel obstruction COMPARISON: 06/18/2019 TECHNIQUE: 7 radiographs of the abdomen are obtained before and after the administration of enteric contrast. [employer] imaging demonstrates an enteric catheter present with the distal tip overlying the body of the stomach with the sidehole overlying the expected location of the GE junction. Rounded density overlying the left abdomen is felt to relate to an ostomy. Surgical clips are noted within the abdomen and pelvis, particularly just to the left of midline. Chain sutures present within the right abdomen. No evidence of free air. Dilated loop of small bowel is present within the left upper abdomen measuring over 6 cm. The small bowel transit time is noted to be just over 1 hour, therefore, this is within normal limits. No free intraperitoneal contrast identified. Degree of distention of the small bowel significantly improved when compared to prior exam. Scattered vascular calcifications. No acute osseous abnormality. IMPRESSION: Small bowel transit time is approximately 1 hour, therefore, there is no evidence of high-grade bowel obstruction. Mildly dilated loop of small bowel within the left abdomen, significantly improved since the prior examination. This may relate to focal ileus or could simply be physiologic for the patient at this time. Extensive postsurgical changes within the abdomen including a left-sided ostomy. Dictated by: Dictated on workstation # [id number]
[2019-06-20 20:00] VITALS: BP 124/73
[2019-06-20] MEDS: ENOXAPARIN 40 MG/0.4 ML (LOVENOX) SYR SQ SCH (22:29)
[2019-06-21] VITALS: BP 125/57
[2019-06-21] MEDS: MEROPENEM 500 MG/SWFI 10 ML IV PUSH IV SCH ×8 (00:33→17:38)
[2019-06-21 04:00] VITALS: BP 126/69
[2019-06-21] MEDS: morphine INJ 4 MG/ML 1 ML (VIAL/SYRINGE) IV PRN ×5 (04:17→17:30)
[2019-06-21] MEDS: KCL 20 MEQ TAB (K-DUR) PO SCH (06:00)
[2019-06-21 06:22] LABS: BUN/CREATININE RATIO 6; CALCIUM 7.8 MG/DL (8.5-10.1); CARBON DIOXIDE 23 MMOL/L (21-32); CHLORIDE 111 MMOL/L (98-107); CREATININE SERUM 0.62 MG/DL (0.60-1.30); GFR ESTIMATED > 60; GLUCOSE 123 MG/DL (70-105); MAGNESIUM 1.7 MG/DL (1.6-2.4); PHOSPHORUS 1.8 MG/DL (2.3-4.7); POTASSIUM 2.9 MMOL/L (3.6-5.0); SODIUM 142 MMOL/L (135-145)
[2019-06-21] MEDS: MAGNESIUM 1 GM/100 ML IVPB 100 ML IV SCH ×3 (07:48→10:19)
[2019-06-21] MEDS: POTASSIUM CL 10MEQ/50ML IVPB 50 ML IV SCH ×6 (07:49→13:17)
[2019-06-21 08:00] VITALS: BP 126/76
--- NOTE | 2019-06-21 08:48 | Progress Note - Surgery ---
[facility] [place] 06/21/19 0847: Subjective Date Seen by a Provider: Jun 21, 2019 Time Seen by a Provider: 08:06 Subjective/Events-last exam Pt lying down in bed. Denies any sx at this time including abd pain, N/V, or constipation. Report colostomy is draining well & have been emptied by several times. NGT draining as well. Pt is agitated this AM stating he is very hungry and would like the NGT to be d/c. Review of Systems General: No Chills, No Night Sweats HEENT: No Head Aches, No Visual Changes Pulmonary: No Dyspnea, No Cough Cardiovascular: No: Chest Pain, Palpitations Gastrointestinal: No: Nausea, Vomiting, Abdominal Pain, Diarrhea, Constipation Focused Exam Lactate Level 06/18/19 17:45: Lactic Acid Level 1.33 Objective Exam Vital Signs Date Time Temp Pulse Resp B/P (MAP) Pulse Ox O2 Delivery O2 Flow Rate FiO2 06/21/19 04:00 36.4 64 16 126/69 (88) 96 Nasal Cannula 1.00 06/21/19 00:00 36.3 68 18 125/57 (79) 94 Nasal Cannula 1.00 06/20/19 20:00 36.6 66 16 124/73 (90) 98 Nasal Cannula 1.00 06/20/19 20:00 94 Nasal Cannula 1.00 06/20/19 16:00 36.4 70 14 118/69 (85) 96 Nasal Cannula 1.00 06/20/19 12:46 68 06/20/19 12:04 36.4 67 18 118/69 (85) 97 Nasal Cannula 1.00 06/20/19 10:08 96 Nasal Cannula 1.00 I & O 06/21/19 07:00 Intake Total 1200 ml Output Total 5450 ml Balance -4250 ml Capillary Refill : Less Than 3 Seconds General Appearance: No Apparent Distress, Chronically ill, Other (Agitated ) HEENT: PERRL/EOMI Neck: Full Range of Motion, Normal Inspection, Non Tender Respiratory: Chest Non Tender, No Accessory Muscle Use, No Respiratory Distress Cardiovascular: Regular Rate, Rhythm, Normal Peripheral Pulses Gastrointestinal: soft, distended (minimal), other (colostomy bag intact and draining well) Extremity: Normal Inspection, No Pedal Edema, Other (muscle wasting symmetrical extremities noted, nontender) Neurologic/Psychiatric: Alert, Oriented x3 Skin: Normal Color, Warm/Dry Lymphatic: No Adenopathy Results Lab Laboratory Tests 06/20/19 15:50: Potassium Level 4.9 06/21/19 05:19: Potassium Level 2.9L, Sodium Level 142, Chloride Level 111H, Carbon Dioxide Level 23, Anion Gap 8, Blood Urea Nitrogen 4L, Creatinine 0.62, Estimat Glomerular Filtration Rate > 60, BUN/Creatinine Ratio 6, Glucose Level 123H, Calcium Level 7.8L, Phosphorus Level 1.8L, Magnesium Level 1.7 Microbiology 06/18/19 Blood Culture - Preliminary, Resulted No growth 06/18/19 Cryptosporidium/Giardia - Final, Complete Assessment/Plan Assessment/Plan Assessment/Plan small bowel obstruction- SBFT showed ~1hr transit time, no High grade SBO, L stomach dilation which is improving, d/c NGT today and advance to clear liquid diet right lower pulmonary infiltrate likely aspiration pneumonia nausea and vomiting- Improved hypokalemia- Replacement given, will continue to monitor labs hx of ischemic colitis continue medical management pain control follow electrolytes on protocol replacement no surgical intervention at this time Clinical Quality Measures DVT/VTE Risk/Contraindication: Risk Factor Score Per Nursin RFS Level Per Nursing on Admit: 4+=Very High BLANQUITA MORALES DO 06/21/192051: Subjective Subjective/Events-last exam feeling better. small bowel follow through no obstruction. + stool/ gas in colostomy bag. Denies n/v fever sweats chills shortness of breath or chest pain. Objective Exam General Appearance: No Apparent Distress, Chronically ill HEENT: PERRL/EOMI Neck: Full Range of Motion, Normal Inspection, Non Tender Respiratory: Chest Non Tender, No Accessory Muscle Use, No Respiratory Distress Cardiovascular: Regular Rate, Rhythm, Normal Peripheral Pulses Gastrointestinal: non tender, soft, no organomegaly; No distended; other (colostomy with output stool and gas) Extremity: Other (muscle wasting symmetrical ) Neurologic/Psychiatric: Alert, Oriented x3 Skin: Normal Color, Warm/Dry Lymphatic: No Adenopathy Assessment/Plan Assessment/Plan Assessment/Plan small bowel obstruction- SBFT showed no obstruction d/c NGT today and advance to clear liquid diet right lower pulmonary infiltrate likely aspiration pneumonia nausea and vomiting- Improved hypokalemia- Replacement given, will continue to monitor labs hx of ischemic colitis Supervisory-Addendum Brief Verification & Attestation Participated in pt care: history, MDM, physical Personally performed: exam, history, MDM, supervision of care Care discussed with: Medical Student Procedures: n/a Results interpretation: Verified all documentation Verification and Attestation of Medical Student E/M Service A medical student performed and documented this service in my presence. I reviewed and verified all information documented by the medical student and made modifications to such information, when appropriate. I personally performed the physical exam and medical decision making. Blanquita Morales, Jun 21, 2019,20:52 [facility] [place] Jun 21, 2019 08:47 BLANQUITA MORALES DO Jun 21, 2019 20:52
[2019-06-21] MEDS: RT-ALBUTEROL/IPRATROPIUM 3 ML (DUONEB) VIAL INH SCH ×2 (09:48→18:38)
[2019-06-21] MEDS: PANTOPRAZOLE 40 MG (PROTONIX) VIAL IV SCH (10:07)
[2019-06-21] MEDS: NICOTINE 21 MG (NICODERM) PATCH TD SCH (10:07)
[2019-06-21] MEDS: NICOTINE PATCH REMOVAL TP SCH (10:13)
[2019-06-21 12:00] VITALS: BP 135/78
--- NOTE | 2019-06-21 15:50 | Progress Note ---
Subjective Subjective/Events-last exam Afebrile, is very hungry and wanting NG out. Having ostomy output and decreased abdominal pain. Focused Exam Lactate Level 06/18/19 17:45: Lactic Acid Level 1.33 Objective Exam Last Set of Vital Signs Vital Signs Date Time Temp Pulse Resp B/P (MAP) Pulse Ox O2 Delivery O2 Flow Rate FiO2 06/21/19 12:00 36.4 64 18 135/78 (97) 96 Nasal Cannula 1.00 Capillary Refill : Less Than 3 Seconds I&O Intake and Output 06/21/19 00:00 Intake Total 1210 ml Output Total 4310 ml Balance -3100 ml Intake Oral 0 ml IV Total 1210 ml Output Urine Total 1500 ml Stool Total 310 ml Gastric Drainage Total 1800 ml Drainage Total 700 ml General: Alert, No Acute Distress Lungs: Clear to Auscultation, Normal Air Movement Heart: Regular Rate, No Murmurs Abdomen: Normal Bowel Sounds, Soft Psych/Mental Status: Mental Status NL Results/Procedures Lab Laboratory Tests 06/20/19 15:50: Potassium Level 4.9 06/21/19 05:19: Potassium Level 2.9L, Sodium Level 142, Chloride Level 111H, Carbon Dioxide Level 23, Anion Gap 8, Blood Urea Nitrogen 4L, Creatinine 0.62, Estimat Glomerular Filtration Rate > 60, BUN/Creatinine Ratio 6, Glucose Level 123H, Calcium Level 7.8L, Phosphorus Level 1.8L, Magnesium Level 1.7 Microbiology 06/18/19 Blood Culture - Preliminary, Resulted No growth 06/18/19 Cryptosporidium/Giardia - Final, Complete Assessment/Plan Assessment/Plan Assessment & Plan 1. Bowel obstruction versus ileus- NG in place, Surgery consulted, appreciate recommendations, on meropenem per Surgery 06/21- improved, remove NG and start CLD 2. Malnutrition likely due to alcoholism- monitor for signs of withdrawal 3. COPD- no evidence of exacerbation currently 4. Likely right lower lobe pneumonitis aspiration related 5. Severe hypomagnesemia and hypokalemia- replace and follow 6. DVT prophylaxis- enoxaparin Clinical Quality Measures DVT/VTE Risk/Contraindication: Risk Factor Score Per Nursin RFS Level Per Nursing on Admit: 4+=Very High CLIFFORD REDD MD Jun 21, 2019 15:50
[2019-06-21 16:00] VITALS: BP 126/62
[2019-06-21] MEDS: D5 NS 1000 ML IV SOLUTION 1,000 ML IV SCH ×2 (17:37→17:40)
[2019-06-21] MEDS ORDERED: LACTULOSE 10 GM/15 ML 30 ML POUR BOTTLE FOR ENEMA PO PRN (19:00)
[2019-06-21] MEDS ORDERED: fentaNYL PATCH 25 MCG (DURAGESIC) TD SCH (19:00)
[2019-06-21 20:00] VITALS: BP 119/56
[2019-06-21] MEDS: DIVALPROEX 250 MG DELAYED RELEASE (DEPAKOTE) TAB PO SCH (20:11)
[2019-06-21] MEDS: morphine ER 15 MG (MS CONTIN) TAB PO SCH (20:11)
[2019-06-21] MEDS: morphine ER 30 MG (MS CONTIN) TAB PO SCH (20:12)
[2019-06-21] MEDS: ENOXAPARIN 40 MG/0.4 ML (LOVENOX) SYR SQ SCH (21:05)
[2019-06-22] VITALS: BP 136/70
[2019-06-22] MEDS: D5 NS 1000 ML IV SOLUTION 1,000 ML IV SCH (00:34)
[2019-06-22] MEDS: MEROPENEM 500 MG/SWFI 10 ML IV PUSH IV SCH ×6 (00:34→11:19)
[2019-06-22 06:49] LABS: BUN/CREATININE RATIO 6; CALCIUM 7.4 MG/DL (8.5-10.1); CARBON DIOXIDE 24 MMOL/L (21-32); CHLORIDE 109 MMOL/L (98-107); CREATININE SERUM 0.63 MG/DL (0.60-1.30); GFR ESTIMATED > 60; GLUCOSE 81 MG/DL (70-105); MAGNESIUM 1.6 MG/DL (1.6-2.4); PHOSPHORUS 2.1 MG/DL (2.3-4.7); POTASSIUM 3.3 MMOL/L (3.6-5.0); SODIUM 139 MMOL/L (135-145)
[2019-06-22] MEDS: POTASSIUM CL 10MEQ/50ML IVPB 50 ML IV SCH (06:52)
[2019-06-22] MEDS: MAGNESIUM 1 GM/100 ML IVPB 100 ML IV SCH ×3 (06:55→09:04)
[2019-06-22] MEDS: KCL 20 MEQ TAB (K-DUR) PO SCH (06:55)
[2019-06-22] MEDS ORDERED: METOCLOPRAMIDE 10 MG (REGLAN) TAB PO SCH (07:00)
[2019-06-22 08:00] VITALS: BP 138/79
[2019-06-22] MEDS ORDERED: KCL 20 MEQ TAB (K-DUR) PO NR ×2 (08:00→10:00)
[2019-06-22] MEDS: RT-ALBUTEROL/IPRATROPIUM 3 ML (DUONEB) VIAL INH SCH (08:28)
--- NOTE | 2019-06-22 08:47 | Progress Note - Surgery ---
[facility] 06/22/19 0846: Subjective Date Seen by a Provider: Jun 22, 2019 Time Seen by a Provider: 08:09 Subjective/Events-last exam Feeling well this AM, sitting in bed, watching TV w/ and laughing. Denies any sx. States he has been tolerating his liquid diet well and asks if he could have solids. States his colostomy bag has been draining well. Review of Systems General: No Chills, No Night Sweats HEENT: No Head Aches, No Visual Changes Pulmonary: No Dyspnea, No Cough Cardiovascular: No: Chest Pain, Palpitations Gastrointestinal: No: Nausea, Vomiting, Abdominal Pain, Diarrhea, Constipation Objective Exam Vital Signs Date Time Temp Pulse Resp B/P (MAP) Pulse Ox O2 Delivery O2 Flow Rate FiO2 06/22/19 08:28 94 Room Air 06/22/19 00:00 36.4 63 18 136/70 (92) 97 Room Air 06/21/19 20:11 36.8 06/21/19 20:10 Nasal Cannula 2.00 06/21/19 20:00 36.7 71 18 119/56 (77) 97 Room Air 06/21/19 18:38 96 Room Air 06/21/19 16:00 36.8 70 18 126/62 (83) 97 Room Air 06/21/19 12:00 36.4 64 18 135/78 (97) 96 Nasal Cannula 1.00 06/21/19 09:48 96 Room Air 06/21/19 09:00 96 Room Air I & O 06/22/19 07:00 Intake Total 3010 ml Output Total 2485 ml Balance 525 ml Capillary Refill : Less Than 3 Seconds General Appearance: No Apparent Distress, Chronically ill HEENT: PERRL/EOMI Neck: Full Range of Motion, Normal Inspection, Non Tender Respiratory: Chest Non Tender, No Accessory Muscle Use, No Respiratory Distress Cardiovascular: Regular Rate, Rhythm, Normal Peripheral Pulses Gastrointestinal: non tender, soft, no organomegaly; No distended; other (colostomy with output stool and gas) Extremity: Other (muscle wasting symmetrical ) Neurologic/Psychiatric: Alert, Oriented x3 Skin: Normal Color, Warm/Dry Lymphatic: No Adenopathy Results Lab Laboratory Tests 06/22/19 05:54: Sodium Level 139, Potassium Level 3.3L, Chloride Level 109H, Carbon Dioxide Level 24, Anion Gap 6, Blood Urea Nitrogen 4L, Creatinine 0.63, Estimat Glomerular Filtration Rate > 60, BUN/Creatinine Ratio 6, Glucose Level 81, Calcium Level 7.4L, Phosphorus Level 2.1L, Magnesium Level 1.6 Microbiology 06/18/19 Blood Culture - Preliminary, Resulted No growth 06/18/19 Cryptosporidium/Giardia - Final, Complete Assessment/Plan Assessment/Plan Assessment/Plan S/p small bowel obstruction- has been tolerating liquid diet, advance to dysphagia 2 diet right lower pulmonary infiltrate likely aspiration pneumonia nausea and vomiting- resolved hypokalemia- Improved, Replacement given, will continue to monitor labs hx of ischemic colitis Plan to d/c pt in the afternoon if he tolerates diet and has no further bowel problems. Clinical Quality Measures DVT/VTE Risk/Contraindication: Risk Factor Score Per Nursin RFS Level Per Nursing on Admit: 4+=Very High BLANQUITA MORALES DO 06/22/19 1513: Subjective Subjective/Events-last exam doing well. having bowel function from colostomy. tolerating diet. wanting to go home. denies n/v fever sweats chills shortness of breath or chest pain. Objective Exam General Appearance: No Apparent Distress HEENT: PERRL/EOMI Neck: Full Range of Motion, Normal Inspection, Non Tender Respiratory: Chest Non Tender, No Accessory Muscle Use, No Respiratory Distress Cardiovascular: Regular Rate, Rhythm Gastrointestinal: non tender, soft, no organomegaly, other (colostomy with output stool and gas) Neurologic/Psychiatric: Alert, Oriented x3 Skin: Normal Color, Warm/Dry Lymphatic: No Adenopathy Assessment/Plan Assessment/Plan Assessment/Plan small bowel obstruction -resolved right lower pulmonary infiltrate likely aspiration pneumonia doing well no difficulty breathing hypokalemia-replaced hx ischemic colitis doing well, wanting to go home, if tolerates diet today will dc home. Supervisory-Addendum Brief Verification & Attestation Participated in pt care: history, MDM, physical Personally performed: exam, history, MDM, supervision of care Care discussed with: Medical Student Procedures: n/a Results interpretation: Verified all documentation Verification and Attestation of Medical Student E/M Service A medical student performed and documented this service in my presence. I reviewed and verified all information documented by the medical student and made modifications to such information, when appropriate. I personally performed the physical exam and medical decision making. Blanquita Morales, Jun 22, 2019,15:13 [facility] Jun 22, 2019 08:46 BLANQUITA MORALES DO Jun 22, 2019 15:13
[2019-06-22 09:00] VITALS: BP 136/70
[2019-06-22] MEDS ORDERED: IRON POLYSAC 150 MG CAP (NIFEREX) PO SCH (09:00)
[2019-06-22] MEDS ORDERED: PANTOPRAZOLE 40 MG (PROTONIX) TAB PO SCH (09:00)
[2019-06-22] MEDS: DIVALPROEX 250 MG DELAYED RELEASE (DEPAKOTE) TAB PO SCH (09:04)
[2019-06-22] MEDS: morphine ER 15 MG (MS CONTIN) TAB PO SCH (09:05)
[2019-06-22] MEDS: morphine ER 30 MG (MS CONTIN) TAB PO SCH (09:05)
[2019-06-22] MEDS: NICOTINE 21 MG (NICODERM) PATCH TD SCH (09:05)
[2019-06-22] MEDS: NICOTINE PATCH REMOVAL TP SCH (09:12)
[2019-06-22] MEDS ORDERED: MAGNESIUM OXIDE (MAG-OX)400 MG TAB PO SCH (12:00)
[2019-06-22 15:40] VITALS: BP 136/70
--- OUTSIDE RECORDS SUMMARY | 2019-06-24 17:12 | XMS REPORT | Continuity of Care Document ---
Author Organization Unknown Address Unknown Phone Unavailable Allergies Active Description Code Type Severity Reaction Onset Reported/Identified Relationship to Patient Clinical Status Yes CODEINE SULFATE U NKNOWN UNKNOWN Yes PENICILLINS UNKNOWN UNKNOWN Yes SULFAMETHOXAZOLE-TRIMETHOPRIM UNKNOWN UNKNOWN Yes PCn PCn Moderate N/A 04/08/2017 Yes codeine [id number] Drug Allergy Unknown N/A 04/08/2017 Yes Sulfa (Sulfonamide Antibiotics) [id number] Drug Allergy Unknown N/A 017 Yes acetaminophen [id number] Eliazar g Allergy Moderate HIVES 04/18/2017 Yes oxycodone [id number] Drug Allergy Moderate HIVES 04/18/2017 Yes Penicillins [id number] Drug Aller gy Unknown N/A 02/10/2019 Medications Medication Packaging Start Date St op Date Route Dosage Sig ACETAMINOPHEN ORAL TABLET 325mg(Tylenol) MG 01/10/2019 02/09/2019 PRN EVERY 6 Hour NORMAL SALINE 1000CC IV BAG INJ 0.9 % (NS 1000CC IV BAG) ml 01/10/2019 01/25/2019 CONTINUOUSEVERY 0 Hour CLONIDINE TAB 0.1 MG (CATAPRES) MG 01/10/2019 01/17/2019 PRN Q6H CALCIUM CARBONATE TAB 500 MG (TUMS) MG 01/10/2019 01/17/2019 PRN Q6H DIPHENHYDRAMINE CAP 25 MG (BENADRYL) MG 01/10/2019 01/17/2019 PRN Q6H Hydromorphone inj 2mg/cc vial (Dilaudid) MG 01/10/2019 01/17/2019 PRN Q2H PANTOPRAZOLE VIAL INJ 40 MG (PROTONIX IV) MG 01/10/2019 01/19/2019 Daily&0900 HYDROCODONE/APAP 7.5/325 TAB (JATINDER-TAB 7.5/ 325) TAB 01/10/2019 01/20/2019 PRN Q4H ACETAMINOPHEN SUPPOS SUP 650 MG (TYLENOL) MG 01/10/2019 01/17/2019 PRN Q4H ONDANSETRON VIAL INJ 4 MG/2CC (ZOFRAN 2CC VIAL) MG 01/10/2019 01/17/2019 PRN Q4H CIPROFLOXACIN PREMIX IV INJ 400 MG/200CC (CIPRO PREMIX IV) MG 01/10/2019 01/20/2019 Q12H&0200,1400 ALUM/MAG/SIMETH 30CC LIQ (MYLANTA PLUS) cc 01/10/2019 01/20/2019 PRN Q4H GUAIFENESIN - DM LIQ (ROBITUSSIN DM) MLS 01/10/2019 01/17/2019 PRN Q4H METRONIDAZOLE IV PREMIX BAG INJ 500 MG/100CC (FLAGYL IV 100CC BAG) MG 01/10/2019 01/20/2019 Q12H&0600,1800 CIPROFLOXACIN PREMIX IV INJ 400 MG/200CC (CIPRO PREMIX IV) MG 01/10/2019 01/20/2019 Q12H&0600,1800 Docusate sodium 100mg oral capsule (COLACE ) MG 01/10/2019 02/09/2019 PRN BID LACTULOSE SYRUP LIQ 20 GM/30 CC (CHRONULAC SYRUP) GM 01/10/2019 02/09/2019 BID&0800,2000 MELATONIN TAB 3 MG (MELATONIN) MG 01/10/2019 01/16/2019 PRN QHS Hydromorphone inj 2mg/cc vial (Dilaudid) MG 01/10/2019 01/17/2019 PRN Q4H BISACODYL TAB 5 MG (DULCOLAX) MG 01/11/2019 01/17/2019 PRN Daily POLYETHYLENE GLYCOL POWDER U D PWD (MIRALAX 17GM UNIT DOSE PAKS) gm 01/11/2019 01/17/2019 Daily&0900 BISACODYL SUPPOS 10 MG (DULCOLAX SUPPOS) MG 01/11/2019 01/17/2019 PRN Daily IPRATROPIUM/ALBUTEROL INH SO LN (DUO-NEB INH SOLN) MLS 01/11/2019 01/15/2019 TID&0100,0900,1700 PANTOPRAZOLE VIAL INJ 40 MG (PROTONIX IV) MG 01/11/2019 01/19/2019 Daily&0900 MILK OF MAGNESIA LIQ ml 01/11/2019 02/09/2019 PRN Daily Hydromorphone inj 2mg/cc vial (Dilaudid) MG 01/11/2019 01/18/2019 PRN Q2H IPRATROPIUM/ALBUTEROL INH SO LN (DUO-NEB INH SOLN) MLS 01/11/2019 01/15/2019 TID&0800,1400,2000 CALMOSEPTINE OINT TUBE (RISAMINE OINT) trupti 01/11/2019 01/18/2019 PRN QID MORPHINE CR TAB 15 MG (M.S.CONTIN) MG 01/11/2019 01/18/2019 PRN BID Divalproex 250mg extended r elease 24 hr (Depakote) 01/11/2019 02/10/2019 BID&0800,2000 CITALOPRAM TAB 20 MG (CELEXA) MG 01/12/2019 01/18/2019 Daily&0800 Problems Date Dx Coded Attending Type Code Diagnosis Diagnosed By 04/17/2017 LEISA GEORGE MD Ot F10.1 0 ALCOHOL ABUSE, UNCOMPLICATED 04/17/2017 LEISA GEORGE MD Ot G72.8 1 CRITICAL ILLNESS MYOPATHY 04/17/2017 LEISA GEORGE MD Ot 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 04/17/2017 LEISA GEORGE MD Ot L89.1 50 PRESSURE ULCER OF SACRAL REGION, UNSTAGE 04/17/2017 LEISA GEORGE MD Ot L89.2 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, STAGE 1 04/17/2017 LEISA GEORGE MD Ot M54.9 DORSALGIA, UNSPECIFIED 04/17/2017 LEISA GEORGE MD Ot Z48.8 15 ENCNTR FOR SURGICAL AFTCR FOLLOWING SURG 04/17/2017 LEISA GEORGE MD Ot Z66 DO NOT RESUSCITATE 04/17/2017 LEISA GEORGE MD Ot Z90.4 9 ACQUIRED ABSENCE OF OTHER SPECIFIED PART 04/17/2017 LEISA GEORGE MD Ot Z93.3 COLOSTOMY STATUS 04/17/2017 LEISA GEORGE MD Ot F10.1 0 ALCOHOL ABUSE, UNCOMPLICATED 04/17/2017 LEISA GEORGE MD Ot G72.8 1 CRITICAL ILLNESS MYOPATHY 04/17/2017 LEISA GEORGE MD Ot 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 04/17/2017 DORIS SERRANO LEISA E Ot L89.1 50 PRESSURE ULCER OF SACRAL REGION, UNSTAGE 04/17/2017 DORIS SERRANO LEISA E Ot L89.2 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, STAGE 1 04/17/2017 LIVE GEORGE MDIC E Ot M54.9 DORSALGIA, UNSPECIFIED 04/17/2017 LIVE GEORGE MDIC E Ot Z48.8 15 ENCNTR FOR SURGICAL AFTCR FOLLOWING SURG 04/17/2017 LEISA GEORGE MD E Ot Z66 DO NOT RESUSCITATE 04/17/2017 LIVE GEORGE MDIC E Ot Z90.4 9 ACQUIRED ABSENCE OF OTHER SPECIFIED PART 04/17/2017 LEISA GEORGE MD E Ot Z93.3 COLOSTOMY STATUS 04/18/2017 LIVE GEORGE MDIC E Ot F10.1 0 ALCOHOL ABUSE, UNCOMPLICATED 04/18/2017 DORIS SERRANO LEISA E Ot G72.8 1 CRITICAL ILLNESS MYOPATHY 04/18/2017 LEISA GEORGE MD E Ot 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 04/18/2017 LIVE GEORGE MDIC E Ot L89.1 50 PRESSURE ULCER OF SACRAL REGION, UNSTAGE 04/18/2017 DORIS SERRANO LEISA E Ot L89.2 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, STAGE 1 04/18/2017 LIVE GEORGE MDIC E Ot M54.9 DORSALGIA, UNSPECIFIED 04/18/2017 LIVE GEORGE MDIC E Ot Z48.8 15 ENCNTR FOR SURGICAL AFTCR FOLLOWING SURG 04/18/2017 LEISA GEORGE MD E Ot Z66 DO NOT RESUSCITATE 04/18/2017 LIVE GEORGE MDIC E Ot Z90.4 9 ACQUIRED ABSENCE OF OTHER SPECIFIED PART 04/18/2017 LIVE GEORGE MDIC E Ot Z93.3 COLOSTOMY STATUS 04/18/2017 DORIS SERRANO LEISA E Ot F10.1 0 ALCOHOL ABUSE, UNCOMPLICATED 04/18/2017 DORIS SERRANO LEISA E Ot G72.8 1 CRITICAL ILLNESS MYOPATHY 04/18/2017 DORIS SERRANO LEISA E Ot 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 04/18/2017 DORIS SERRANO LEISA E Ot L89.1 50 PRESSURE ULCER OF SACRAL REGION, UNSTAGE 04/18/2017 DORIS SERRANO LEISA E Ot L89.2 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, STAGE 1 04/18/2017 LEISA GEORGE MD E Ot M54.9 DORSALGIA, UNSPECIFIED 04/18/2017 LEISA GEORGE MD E Ot Z48.8 15 ENCNTR FOR SURGICAL AFTCR FOLLOWING SURG 04/18/2017 LEISA GEORGE MD E Ot Z66 DO NOT RESUSCITATE 04/18/2017 LEISA GEORGE MD E Ot Z90.4 9 ACQUIRED ABSENCE OF OTHER SPECIFIED PART 04/18/2017 LEISA GEORGE MD E Ot Z93.3 COLOSTOMY STATUS 04/20/2017 LEISA GEORGE MD E Ot F10.1 0 ALCOHOL ABUSE, UNCOMPLICATED 04/20/2017 LIVE GEORGE MDIC E Ot G72.8 1 CRITICAL ILLNESS MYOPATHY 04/20/2017 LEISA GEORGE MD E Ot 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 04/20/2017 LEISA GEORGE MD E Ot L89.1 50 PRESSURE ULCER OF SACRAL REGION, UNSTAGE 04/20/2017 LEISA GEORGE MD E Ot L89.2 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, STAGE 1 04/20/2017 LEISA GEORGE MD E Ot M54.9 DORSALGIA, UNSPECIFIED 04/20/2017 LEISA GEORGE MD E Ot Z48.8 15 ENCNTR FOR SURGICAL AFTCR FOLLOWING SURG 04/20/2017 LEISA GEORGE MD E Ot Z66 DO NOT RESUSCITATE 04/20/2017 LIVE GEORGE MDIC E Ot Z90.4 9 ACQUIRED ABSENCE OF OTHER SPECIFIED PART 04/20/2017 LEISA GEORGE MD E Ot Z93.3 COLOSTOMY STATUS 04/22/2017 LEISA GEORGE MD E Ot F10.1 0 ALCOHOL ABUSE, UNCOMPLICATED 04/22/2017 LIVE GEORGE MDIC E Ot G72.8 1 CRITICAL ILLNESS MYOPATHY 04/22/2017 LIVE GEORGE MDIC E Ot 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 04/22/2017 LEISA GEORGE MD E Ot L89.1 50 PRESSURE ULCER OF SACRAL REGION, UNSTAGE 04/22/2017 LIVE GEORGE MDIC E Ot L89.2 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, STAGE 1 04/22/2017 LEISA GEORGE MD E Ot M54.9 DORSALGIA, UNSPECIFIED 04/22/2017 LEISA GEORGE MD E Ot Z48.8 15 ENCNTR FOR SURGICAL AFTCR FOLLOWING SURG 04/22/2017 LEISA GEORGE MD E Ot Z66 DO NOT RESUSCITATE 04/22/2017 LEISA GEORGE MD E Ot Z90.4 9 ACQUIRED ABSENCE OF OTHER SPECIFIED PART 04/22/2017 LEISA GEORGE MD E Ot Z93.3 COLOSTOMY STATUS 04/22/2017 LEISA GEORGE MD E Ot F10.1 0 ALCOHOL ABUSE, UNCOMPLICATED 04/22/2017 LEISA GEORGE MD E Ot G72.8 1 CRITICAL ILLNESS MYOPATHY 04/22/2017 LEISA GEORGE MD E Ot 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8 1 CRITICAL ILLNESS MYOPATHY 04/24/2017 LEISA GEORGE MD E Ot 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 04/24/2017 LEISA GEORGE MD E Ot L89.1 50 PRESSURE ULCER OF SACRAL REGION, UNSTAGE 04/24/2017 LEISA GEORGE MD E Ot L89.2 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, STAGE 1 04/24/2017 LEISA GEORGE MD E Ot M54.9 DORSALGIA, UNSPECIFIED 04/24/2017 LEISA GEORGE MD E Ot Z48.8 15 ENCNTR FOR SURGICAL AFTCR FOLLOWING SURG 04/24/2017 LEISA GEORGE MD E Ot Z66 DO NOT RESUSCITATE 04/24/2017 LEISA GEORGE MD E Ot Z90.4 9 ACQUIRED ABSENCE OF OTHER SPECIFIED PART 04/24/2017 LEISA GEORGE MD E Ot Z93.3 COLOSTOMY STATUS 05/01/2017 LIVE GEORGE MDIC E Ot F10.1 0 ALCOHOL ABUSE, UNCOMPLICATED 05/01/2017 LIVE GEORGE MDIC E Ot G72.8 1 CRITICAL ILLNESS MYOPATHY 05/01/2017 LEISA GEORGE MD E Ot 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 05/01/2017 LIVE GEORGE MDIC E Ot L89.1 50 PRESSURE ULCER OF SACRAL REGION, UNSTAGE 05/01/2017 LEISA GEORGE MD E Ot L89.2 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, STAGE 1 05/01/2017 LEISA GEORGE MD E Ot M54.9 DORSALGIA, UNSPECIFIED 05/01/2017 LEISA GEORGE MD E Ot Z48.8 15 ENCNTR FOR SURGICAL AFTCR FOLLOWING SURG 05/01/2017 LEISA GEORGE MD E Ot Z66 DO NOT RESUSCITATE 05/01/2017 LEISA GEORGE MD E Ot Z90.4 9 ACQUIRED ABSENCE OF OTHER SPECIFIED PART 05/01/2017 LEISA GEORGE MD E Ot Z93.3 COLOSTOMY STATUS 05/04/2017 LEISA GEORGE MD E Ot F10.1 0 ALCOHOL ABUSE, UNCOMPLICATED 05/04/2017 LIVE GEORGE MDIC E Ot F17.2 10 NICOTINE DEPENDENCE, CIGARETTES, UNCOMPL 05/04/2017 LIVE GEORGE MDIC E Ot G72.8 1 CRITICAL ILLNESS MYOPATHY 05/04/2017 LIVE GEORGE MDIC E Ot 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 05/04/2017 DORIS SERRANO LEISA E Ot L89.1 50 PRESSURE ULCER OF SACRAL REGION, UNSTAGE 05/04/2017 LIVE GEORGE MDIC E Ot L89.1 54 PRESSURE ULCER OF SACRAL REGION, STAGE 4 05/04/2017 LIVE GEORGE MDIC E Ot L89.2 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, STAGE 1 05/04/2017 LEISA GEORGE MD E Ot M54.9 DORSALGIA, UNSPECIFIED 05/04/2017 LEISA GEORGE MD E Ot N30.0 0 ACUTE CYSTITIS WITHOUT HEMATURIA 05/04/2017 LEISA GEORGE MD E Ot T81.30XA DISRUPTION OF WOUND, UNSPECIFIED, INITIA 05/04/2017 LEISA GEORGE MD E Ot T83.511A I/I REACT D/T INDWELLING URETHRAL CATHET 05/04/2017 LEISA GEORGE MD Ot Z23 ENCOUNTER FOR IMMUNIZATION 05/04/2017 LEISA GEORGE MD Ot Z48.8 15 ENCNTR FOR SURGICAL AFTCR FOLLOWING SURG 05/04/2017 LEISA GEORGE MD Ot Z66 DO NOT RESUSCITATE 05/04/2017 LEISA GEORGE MD Ot Z90.4 9 ACQUIRED ABSENCE OF OTHER SPECIFIED PART 05/04/2017 LEISA GEORGE MD Ot Z93.3 COLOSTOMY STATUS 11/28/2018 LATRICE POST MD Ot F17.2 10 NICOTINE DEPENDENCE, CIGARETTES, UNCOMPL 11/28/2018 LATRICE POST MD Ot F17.2 90 NICOTINE DEPENDENCE, OTHER TOBACCO PRODU 11/28/2018 LATRICE POST MD Ot I10 ESSENTIAL (PRIMARY) HYPERTENSION 11/28/2018 LATRICE POST MD Ot K21.9 GASTRO-ESOPHAGEAL REFLUX DISEASE WITHOUT 11/28/2018 LATRICE POST MD Ot K56.6 00 PARTIAL INTESTINAL OBSTRUCTION, UNSPECIF 11/28/2018 LATRICE POST MD Ot R53.8 1 OTHER MALAISE 11/28/2018 LATRICE POST MD, Ot Z86.7 3 PRSNL HX OF TIA (TIA), AND CEREB INFRC W 11/28/2018 LATRICE POST MD Ot Z88.2 ALLERGY STATUS TO SULFONAMIDES STATUS 11/28/2018 LATRICE POST MD Ot Z88.5 ALLERGY STATUS TO NARCOTIC AGENT STATUS 11/28/2018 LATRICE POST MD Ot Z93.3 COLOSTOMY STATUS 01/12/2019 Mel Renteria W 276.51 DEHYDRATION 01/12/2019 Mel Renteria 305.1 TOBACCO USE DISORDER 01/12/2019 Mel Renteria 443.9 PERIPHERAL VASCULAR DISEASE, UNSPECIFIED 01/12/2019 Mel Renteria W 558.9 OTHER AND UNSPECIFIED NONINFECTIOUS GASTROENTERITIS AND COLITIS 01/12/2019 Mel Renteria 560.1 PARALYTIC ILEUS 01/12/2019 Mel Renteria W 789.07 ABDOMINAL PAIN, GENERALIZED 01/12/2019 Mel Renteria E86.0 DEHYDRATION 01/12/2019 Mel Renteria I73.9 PERIPHERAL VASCULAR DISEASE, UNSPECIFIED 01/12/2019 Mel Renteria K52.9 NONINFECTIVE GASTROENTERITIS AND COLITIS, UNSPECIFIED 01/12/2019 Mel Renteria W K56.7 ILEUS, UNSPECIFIED 01/12/2019 Mel Renteria R10.84 GENERALIZED ABDOMINAL PAIN 01/12/2019 Mel Renteria W Z72.0 TOBACCO USE 02/11/2019 MEL RENTERIA DO Ot F17.21 0 NICOTINE DEPENDENCE, CIGARETTES, UNCOMPL 02/11/2019 MEL RENTERIA DO Ot F17.29 0 NICOTINE DEPENDENCE, OTHER TOBACCO PRODU 02/11/2019 MEL RENTERIA DO Ot F32.9 MAJOR DEPRESSIVE DISORDER, SINGLE EPISOD 02/11/2019 MEL RENTERIA DO Ot F41.9 ANXIETY DISORDER, UNSPECIFIED 02/11/2019 MEL RENTERIA DO Ot I10 ESSENTIAL (PRIMARY) HYPERTENSION 02/11/2019 MEL RENTERIA DO Ot I71.4 ABDOMINAL AORTIC ANEURYSM, WITHOUT RUPTU 02/11/2019 MEL RENTERIA DO Ot I73.9 PERIPHERAL VASCULAR DISEASE, UNSPECIFIED 02/11/2019 MEL RENTERIA DO Ot J44.9 CHRONIC OBSTRUCTIVE PULMONARY DISEASE, U 02/11/2019 MEL RENTERIA DO Ot K21.9 GASTRO-ESOPHAGEAL REFLUX DISEASE WITHOUT 02/11/2019 MEL RENTERIA DO Ot K55.9 VASCULAR DISORDER OF INTESTINE, UNSPECIF 02/11/2019 MEL RENTERIA DO Ot K56.7 ILEUS, UNSPECIFIED 02/11/2019 MEL RENTERIA DO Ot K59.09 OTHER CONSTIPATION 02/11/2019 MEL RENTERIA DO Ot R53.81 OTHER MALAISE 02/11/2019 MEL RENTERIA DO Ot Z66 DO NOT RESUSCITATE 02/11/2019 MEL RENTERIA DO Ot Z72.89 OTHER PROBLEMS RELATED TO LIFESTYLE 02/11/2019 MEL RENTERIA DO Ot Z86.73 PRSNL HX OF TIA (TIA), AND CEREB INFRC W 02/11/2019 MEL RENTERIA DO Ot Z88.0 ALLERGY STATUS TO PENICILLIN 02/11/2019 MEL RENTERIA DO Ot Z88.2 ALLERGY STATUS TO SULFONAMIDES STATUS 02/11/2019 MEL RENTERIA DO Ot Z88.5 ALLERGY STATUS TO NARCOTIC AGENT STATUS 02/11/2019 RENTERIA DO, MEL Ot Z93.3 COLOSTOMY [facility]US [facility] UNSPECIFIED PROTEIN-CALORIE MALNUTRITION 06/21/2019 [facility] E78. 5 HYPERLIPIDEMIA, UNSPECIFIED 06/21/2019 [facility] E83. 42 HYPOMAGNESEMIA 06/21/2019 [facility] E86. 0 DEHYDRATION 06/21/2019 [facility] E87. 6 HYPOKALEMIA 06/21/2019 [facility] F10. 20 ALCOHOL DEPENDENCE, UNCOMPLICATED 06/21/2019 [facility] F17.290 NICOTINE DEPENDENCE, OTHER TOBACCO PRODU 06/21/2019 [facility] F32. 9 MAJOR DEPRESSIVE DISORDER, SINGLE EPISOD 06/21/2019 FERNANDEZ DOBLANQUITA Ot F41. 9 ANXIETY DISORDER, UNSPECIFIED 06/21/2019 [facility] I10 ESSENTIAL (PRIMARY) HYPERTENSION 06/21/2019 [facility] I71. 4 ABDOMINAL AORTIC ANEURYSM, WITHOUT RUPTU 06/21/2019 FERNANDEZ DOBLANQUITA Ot I73. 9 PERIPHERAL VASCULAR DISEASE, UNSPECIFIED 06/21/2019 FERNANDEZ DOBLANQUITA Ot J44. 9 CHRONIC OBSTRUCTIVE PULMONARY DISEASE, U 06/21/2019 FERNANDEZ DOBLANQUITA Ot J69. 0 PNEUMONITIS DUE TO INHALATION OF FOOD AN 06/21/2019 FERNANDEZ DOBLANQUITA Ot K21. 9 GASTRO-ESOPHAGEAL REFLUX DISEASE WITHOUT 06/21/2019 FERNANDEZ DOBLANQUITA Ot K56.699 OTHER INTESTNL OBST UNSP TO PARTIAL V 06/21/2019 [facility] K56. 7 ILEUS, UNSPECIFIED 06/21/2019 [facility] K59. 09 OTHER CONSTIPATION 06/21/2019 [facility] R53. 81 OTHER MALAISE 06/21/2019 [facility] Z86. 73 PRSNL HX OF TIA (TIA), AND CEREB INFRC W 06/21/2019 [facility] Z90. 49 ACQUIRED ABSENCE OF OTHER SPECIFIED PART 06/21/2019 [facility] Z93. 3 COLOSTOMY STATUS 06/21/2019 TATIANA SERRANO, RUPA Alfaro Ot D64.9 ANEMIA, UNSPECIFIED 06/21/2019 RUPA SIMPSON MD Ot E86.0 DEHYDRATION 06/21/2019 RUPA SIMPSON MD, Ot F32.9 MAJOR DEPRESSIVE DISORDER, SINGLE EPISOD 06/21/2019 RUPA SIMPSON MD, Ot F41.9 ANXIETY DISORDER, UNSPECIFIED 06/21/2019 URPA SIMPSON MD, Ot K21.9 GASTRO-ESOPHAGEAL REFLUX DISEASE WITHOUT 06/21/2019 TATIANA SERRANO, RPUA Alfaro Ot R11.2 NAUSEA WITH VOMITING, UNSPECIFIED 06/21/2019 RUPA SIMPSON MD, Ot Z82.4 9 FAMILY HX OF ISCHEM HEART DIS AND OTH DI 06/21/2019 RUPA SIMPSON MD, Ot Z88.0 ALLERGY STATUS TO PENICILLIN 06/21/2019 RUPA SIMPSON MD Ot Z88.2 ALLERGY STATUS TO SULFONAMIDES STATUS 06/21/2019 RUPA SIMPSON MD, Ot Z88.5 ALLERGY STATUS TO NARCOTIC AGENT STATUS 06/21/2019 TATIANA SERRAON, RUPA Alfaro Ot Z93.3 COLOSTOMY STATUS 06/22/2019 BLANQUITA FERNANDEZ DO Ot E46 UNSPECIFIED PROTEIN-CALORIE MALNUTRITION 06/22/2019 BLANQUITA FERNANDEZ DO Ot E78. 5 HYPERLIPIDEMIA, UNSPECIFIED 06/22/2019 FERNANDEZ BLANQUITA LACKEY Ot E83. 42 HYPOMAGNESEMIA 06/22/2019 FERNANDEZ BLANQUITA LACKEY Ot E86. 0 DEHYDRATION 06/22/2019 FERNANDEZ BLANQUITA LACKEY Ot E87. 6 HYPOKALEMIA 06/22/2019 BLANQUITA FERNANDEZ DO Ot F10. 20 ALCOHOL DEPENDENCE, UNCOMPLICATED 06/22/2019 FERNANDEZ BLANQUITA LACKEY Ot F17.290 NICOTINE DEPENDENCE, OTHER TOBACCO PRODU 06/22/2019 BLANQUITA FERNANDEZ DO Ot F32. 9 MAJOR DEPRESSIVE DISORDER, SINGLE EPISOD 06/22/2019 FERNANDEZ BLANQUITA LACKEY Ot F41. 9 ANXIETY DISORDER, UNSPECIFIED 06/22/2019 FERNANDEZ BLANQUITA LACKEY Ot I10 ESSENTIAL (PRIMARY) HYPERTENSION 06/22/2019 BLANQUITA FERNANDEZ DO Ot I71. 4 ABDOMINAL AORTIC ANEURYSM, WITHOUT RUPTU 06/22/2019 BLANQUITA FERNANDEZ DO Ot I73. 9 PERIPHERAL VASCULAR DISEASE, UNSPECIFIED 06/22/2019 [facility] J44. 9 CHRONIC OBSTRUCTIVE PULMONARY DISEASE, U 06/22/2019 FERNANDEZ BLANQUITA LACKEY Ot J69. 0 PNEUMONITIS DUE TO INHALATION OF FOOD AN 06/22/2019 [facility] K21. 9 GASTRO-ESOPHAGEAL REFLUX DISEASE WITHOUT 06/22/2019 [facility] K56.699 OTHER INTESTNL OBST UNSP TO PARTIAL V 06/22/2019 [facility] K56. 7 ILEUS, UNSPECIFIED 06/22/2019 [facility] K59. 09 OTHER CONSTIPATION 06/22/2019 [facility] R53. 81 OTHER MALAISE 06/22/2019 [facility] Z86. 73 PRSNL HX OF TIA (TIA), AND CEREB INFRC W 06/22/2019 [facility] Z90. 49 ACQUIRED ABSENCE OF OTHER SPECIFIED PART 06/22/2019 [facility] Z93. 3 COLOSTOMY STATUS 06/23/2019 RUPA SIMPSON MD, Ot D64.9 ANEMIA, UNSPECIFIED 06/23/2019 RUPA SIMPSON MD, Ot E86.0 DEHYDRATION 06/23/2019 RUPA SIMPSON MD, Ot F32.9 MAJOR DEPRESSIVE DISORDER, SINGLE EPISOD 06/23/2019 RUPA SIMPSON MD, Ot F41.9 ANXIETY DISORDER, UNSPECIFIED 06/23/2019 RUPA SIMPSON MD, Ot K21.9 GASTRO-ESOPHAGEAL REFLUX DISEASE WITHOUT 06/23/2019 RUPA SIMPSON MD, Ot R11.2 NAUSEA WITH VOMITING, UNSPECIFIED 06/23/2019 RUPA SIMPSON MD, Ot Z82.4 9 FAMILY HX OF ISCHEM HEART DIS AND OTH DI 06/23/2019 RUPA SIMPSON MD, Ot Z88.0 ALLERGY STATUS TO PENICILLIN 06/23/2019 RUPA SIMPSON MD, Ot Z88.2 ALLERGY STATUS TO SULFONAMIDES STATUS 06/23/2019 RUPA SIMPSON MD, Ot Z88.5 ALLERGY STATUS TO NARCOTIC AGENT STATUS 06/23/2019 RUPA SIMPSON MD, Ot Z93.3 COLOSTOMY STATUS Procedures Code Description Performed By Per formed On [id number] DR VASQUEZ OF STOMACH WITH DRAINAGE DEVICE 11/26/[id number] VASQUEZ OF STOMACH WITH DRAINAGE DEVICE 02/08/[id number] VASQUEZ OF STOMACH WITH DRAINAGE DEVICE 06/19/2019 Results Test Result Range Capillary blood glucose measurement by g lucometer (mass/volume) - 04/09/17 04:42 Capillary blood glucose measurement by glucometer (mas s/volume) 94 mg/dL 70-110 Complete blood count (CBC) with automate d white blood cell (WBC) differential - 04/10/17 05:10 Blood leukocytes automated count (number/volume) 10.0 10*3/uL 4.3-11.0 Blood erythrocytes automated count (number/volume) 2.56 10*6/uL 4.35-5.85 Venous blood hemoglobin measurement (mass/volume) 7.9 g/dL 13.3-17.7 Blood hematocrit (volume fraction) 25 % 40-54 Automated erythrocyte mean corpuscular volume 98 [ foz_us] 80-99 Automated erythrocyte mean corpuscular h emoglobin (mass per erythrocyte) 31 pg 25-34 Automated erythrocyte mean corpuscular h emoglobin concentration measurement (mass/volume) 32 g/dL 32-36 Automated erythrocyte distribution width ratio 15. 2 % 10.0- 14.5 Automated blood platelet count (count/volume) 530 10*3/uL 130-400 Automated blood platelet mean volume measurement 9.2 [foz_us] 7.4-10.4 Automated blood neutrophils/100 leukocytes 70 % 42-75 Automated blood lymphocytes/100 leukocytes 18 % 12-44 Blood monocytes/100 leukocytes 9 % 0-12 Automated blood eosinophils/100 leukocytes 3 % 0-10 Automated blood basophils/100 leukocytes 0 % 0-10 Blood neutrophils automated count (number/volume) 7.1 10*3 1.8-7.8 Blood lymphocytes automated count (number/volume) 1.8 10*3 1.0-4.0 Blood monocytes automated count (number/volume) 0. 9 10*3 0.0-1.0 Automated eosinophil count 0.3 10*3/uL 0 .0-0.3 Automated blood basophil count (count/volume) 0.0 10*3/uL 0.0-0.1 Whole blood basic metabolic panel - 03/19 09/01 05:10 Serum or plasma sodium measurement (moles/volume) 139 mmol/L 135-145 Serum or plasma potassium measurement (moles/volume) 4.6 mmol/L 3.6-5.0 Serum or plasma chloride measurement (moles/volume) 105 mmol/L 98-107 Carbon dioxide 24 mmol/L 21-32 Serum or plasma anion gap determination (moles/volume) 10 mmol/L 5-14 Serum or plasma urea nitrogen measurement (mass/volume ) 17 mg/dL 7-18 Serum or plasma creatinine measurement (mass/volume) 0.87 mg/dL 0.60-1.30 Serum or plasma urea nitrogen/creatinine mass ratio 20 NRG Serum or plasma creatinine measurement w ith calculation of estimated glomerular filtration rate > NRG Serum or plasma glucose measurement (mass/volume) 91 mg/dL 70-105 Serum or plasma calcium measurement (mass/volume) 9.9 mg/dL 8.5-10.1 Complete blood count (CBC) with automate d white blood cell (WBC) differential - 04/14/17 05:10 Blood leukocytes automated count (number/volume) 8.2 10*3/uL 4.3-11.0 Blood erythrocytes automated count (number/volume) 2.07 10*6/uL 4.35-5.85 Venous blood hemoglobin measurement (mass/volume) 6.5 g/dL 13.3-17.7 Blood hematocrit (volume fraction) 20 % 40-54 Automated erythrocyte mean corpuscular volume 98 [ foz_us] 80-99 Automated erythrocyte mean corpuscular h emoglobin (mass per erythrocyte) 31 pg 25-34 Automated erythrocyte mean corpuscular h emoglobin concentration measurement (mass/volume) 32 g/dL 32-36 Automated erythrocyte distribution width ratio 15. 2 % 10.0- 14.5 Automated blood platelet count (count/volume) 537 10*3/uL 130-400 Automated blood platelet mean volume measurement 9.0 [foz_us] 7.4-10.4 Automated blood neutrophils/100 leukocytes 67 % 42-75 Automated blood lymphocytes/100 leukocytes 20 % 12-44 Blood monocytes/100 leukocytes 9 % 0-12 Automated blood eosinophils/100 leukocytes 3 % 0-10 Automated blood basophils/100 leukocytes 0 % 0-10 Blood neutrophils automated count (number/volume) 5.5 10*3 1.8-7.8 Blood lymphocytes automated count (number/volume) 1.6 10*3 1.0-4.0 Blood monocytes automated count (number/volume) 0. 8 10*3 0.0-1.0 Automated eosinophil count 0.3 10*3/uL 0 .0-0.3 Automated blood basophil count (count/volume) 0.0 10*3/uL 0.0-0.1 Whole blood hemoglobin and hematocrit pa giana - 04/14/17 08:11 Venous blood hemoglobin measurement (mass/volume) 7.7 g/dL 13.3-17.7 Blood hematocrit (volume fraction) 25 % 40-54 [id number] - 04/14/17 08:11 [id number] SPECIMEN AVAILABLE NR Stool occult blood screen - 04/14/17 09: 05 Stool gastrointestinal hemoglobin detection NEGATI VE NEGATIVE Complete blood count (CBC) with automate d white blood cell (WBC) differential - 04/19/17 09:08 Blood leukocytes automated count (number/volume) 9.4 10*3/uL 4.3-11.0 Blood erythrocytes automated count (number/volume) 2.44 10*6/uL 4.35-5.85 Venous blood hemoglobin measurement (mass/volume) 7.4 g/dL 13.3-17.7 Blood hematocrit (volume fraction) 24 % 40-54 Automated erythrocyte mean corpuscular volume 98 [ foz_us] 80-99 Automated erythrocyte mean corpuscular h emoglobin (mass per erythrocyte) 30 pg 25-34 Automated erythrocyte mean corpuscular h emoglobin concentration measurement (mass/volume) 31 g/dL 32-36 Automated erythrocyte distribution width ratio 15. 1 % 10.0- 14.5 Automated blood platelet count (count/volume) 433 10*3/uL 130-400 Automated blood platelet mean volume measurement 9.1 [foz_us] 7.4-10.4 Automated blood neutrophils/100 leukocytes 81 % 42-75 Automated blood lymphocytes/100 leukocytes 10 % 12-44 Blood monocytes/100 leukocytes 8 % 0-12 Automated blood eosinophils/100 leukocytes 2 % 0-10 Automated blood basophils/100 leukocytes 0 % 0-10 Blood neutrophils automated count (number/volume) 7.5 10*3 1.8-7.8 Blood lymphocytes automated count (number/volume) 0.9 10*3 1.0-4.0 Blood monocytes automated count (number/volume) 0. 7 10*3 0.0-1.0 Automated eosinophil count 0.2 10*3/uL 0 .0-0.3 Automated blood basophil count (count/volume) 0.0 10*3/uL 0.0-0.1 Comprehensive metabolic panel - 04/19/17 09:08 Serum or plasma sodium measurement (moles/volume) 138 mmol/L 135-145 Serum or plasma potassium measurement (moles/volume) 4.7 mmol/L 3.6-5.0 Serum or plasma chloride measurement (moles/volume) 104 mmol/L 98-107 Carbon dioxide 24 mmol/L 21-32 Serum or plasma anion gap determination (moles/volume) 10 mmol/L 5-14 Serum or plasma urea nitrogen measurement (mass/volume ) 18 mg/dL 7-18 Serum or plasma creatinine measurement (mass/volume) 1.22 mg/dL 0.60-1.30 Serum or plasma urea nitrogen/creatinine mass ratio 15 NRG Serum or plasma creatinine measurement w ith calculation of estimated glomerular filtration rate 60 NRG Serum or plasma glucose measurement (mass/volume) 102 mg/dL 70-105 Serum or plasma calcium measurement (mass/volume) 9.0 mg/dL 8.5-10.1 Serum or plasma total bilirubin measurement (mass/volu me) 0.3 mg/dL 0.1-1.0 Serum or plasma alkaline phosphatase [place] surement (enzymatic activity/volume) 52 U/L 40-136 Serum or plasma aspartate aminotransfera se measurement (enzymatic activity/volume) 15 U/L 5-34 Serum or plasma alanine aminotransferase measurement (enzymatic activity/volume) 16 U/L 0-55 Serum or plasma protein measurement (mass/volume) 6.6 g/dL 6.4-8.2 Serum or plasma albumin measurement (mass/volume) 3.0 g/dL 3.2-4.5 IRON TEST - 04/19/17 09:08 Serum or plasma iron measurement (mass/volume) 25 % 40-180 Complete blood count (CBC) with automate d white blood cell (WBC) differential - 04/23/17 09:18 Blood leukocytes automated count (number/volume) 11.5 10*3/uL 4.3-11.0 Blood erythrocytes automated count (number/volume) 2.59 10*6/uL 4.35-5.85 Venous blood hemoglobin measurement (mass/volume) 7.7 g/dL 13.3-17.7 Blood hematocrit (volume fraction) 26 % 40-54 Automated erythrocyte mean corpuscular volume 99 [ foz_us] 80-99 Automated erythrocyte mean corpuscular h emoglobin (mass per erythrocyte) 30 pg 25-34 Automated erythrocyte mean corpuscular h emoglobin concentration measurement (mass/volume) 30 g/dL 32-36 Automated erythrocyte distribution width ratio 15. 1 % 10.0- 14.5 Automated blood platelet count (count/volume) 465 10*3/uL 130-400 Automated blood platelet mean volume measurement 9.1 [foz_us] 7.4-10.4 Automated blood neutrophils/100 leukocytes 80 % 42-75 Automated blood lymphocytes/100 leukocytes 9 % 12-44 Blood monocytes/100 leukocytes 8 % 0-12 Automated blood eosinophils/100 leukocytes 2 % 0-10 Automated blood basophils/100 leukocytes 0 % 0-10 Blood neutrophils automated count (number/volume) 9.2 10*3 1.8-7.8 Blood lymphocytes automated count (number/volume) 1.1 10*3 1.0-4.0 Blood monocytes automated count (number/volume) 0. 9 10*3 0.0-1.0 Automated eosinophil count 0.3 10*3/uL 0 .0-0.3 Automated blood basophil count (count/volume) 0.0 10*3/uL 0.0-0.1 Comprehensive metabolic panel - 04/23/17 09:18 Serum or plasma sodium measurement (moles/volume) 140 mmol/L 135-145 Serum or plasma potassium measurement (moles/volume) 4.0 mmol/L 3.6-5.0 Serum or plasma chloride measurement (moles/volume) 103 mmol/L 98-107 Carbon dioxide 25 mmol/L 21-32 Serum or plasma anion gap determination (moles/volume) 12 mmol/L 5-14 Serum or plasma urea nitrogen measurement (mass/volume ) 15 mg/dL 7-18 Serum or plasma creatinine measurement (mass/volume) 0.95 mg/dL 0.60-1.30 Serum or plasma urea nitrogen/creatinine mass ratio 16 NRG Serum or plasma creatinine measurement w ith calculation of estimated glomerular filtration rate > NRG Serum or plasma glucose measurement (mass/volume) 106 mg/dL 70-105 Serum or plasma calcium measurement (mass/volume) 9.5 mg/dL 8.5-10.1 Serum or plasma total bilirubin measurement (mass/volu me) 0.3 mg/dL 0.1-1.0 Serum or plasma alkaline phosphatase [place] surement (enzymatic activity/volume) 58 U/L 40-136 Serum or plasma aspartate aminotransfera se measurement (enzymatic activity/volume) 11 U/L 5-34 Serum or plasma alanine aminotransferase measurement (enzymatic activity/volume) 12 U/L 0-55 Serum or plasma protein measurement (mass/volume) 7.0 g/dL 6.4-8.2 Serum or plasma albumin measurement (mass/volume) 3.3 g/dL 3.2-4.5 Complete urinalysis with reflex to cultu re - 04/23/17 10:01 Urine color determination YELLOW NRG Urine clarity determination CLEAR NR G Urine pH measurement by test strip 7 5-9 Specific gravity of urine by test strip 1.005 1.016-1.022 Urine protein assay by test strip, semi-quantitative NEGATIVE NEGATIVE Urine glucose detection by automated test strip NE GATIVE NEGATIVE Erythrocytes detection in urine sediment by light micr oscopy 1+ NEGATIVE Urine ketones detection by automated test strip NE GATIVE NEGATIVE Urine nitrite detection by test strip POSITIVE NEGATIVE Urine total bilirubin detection by test strip NEGA TIVE NEGATIVE Urine urobilinogen measurement by automated test strip (mass/volume) NORMAL NORMAL Urine leukocyte esterase detection by dipstick 3+ NEGATIVE Automated urine sediment erythrocyte cou nt by microscopy (number/high power field) RARE NRG Automated urine sediment leukocyte count by microscopy (number/high power field) [HPF] NRG Bacteria detection in urine sediment by light microsco py MODERATE NRG Crystals detection in urine sediment by light microsco py NONE NRG Casts detection in urine sediment by light microscopy NONE NRG Mucus detection in urine sediment by light microscopy NEGATIVE NRG Complete urinalysis with reflex to culture YES NRG Bacterial urine culture - 04/23/17 10:01 Bacterial urine culture [id number] NRG COLONY COUNT >100,000/ML NRG FTX;REPORTABLE SENSITIVITY REPORTED AT 0844, NRG Bacterial susceptibility panel - 7 10:01 Gentamicin susceptibility test by minimum inhibitory c oncentration >= NRG Tobramycin susceptibility test by minimum inhibitory c oncentration >= NRG Piperacillin/tazobactam susceptibility t est by minimum inhibitory concentration S NRG Ciprofloxacin susceptibility test by minimum inhibitor y concentration >= NRG Meropenem susceptibility test by minimum inhibitory co ncentration >= NRG Cefepime susceptibility test by minimum inhibitory con centration 32 NRG Amikacin susceptibility test by minimum inhibitory con centration R NRG Blood lactic acid measurement (moles/vol ume) - 04/23/17 10:57 Blood lactic acid measurement (moles/volume) 2.20 mmol/L 0.50-2.00 Bacterial blood culture - 04/23/17 10:57 Bacterial blood culture NG NRG Bacterial blood culture - 04/23/17 11:04 Bacterial blood culture NG NRG Serum or plasma lactate measurement (mol es/volume) - 04/23/17 13:20 Serum or plasma lactate measurement (moles/volume) 1.29 mmol/L 0.50-2.00 Complete blood count (CBC) with automate d white blood cell (WBC) differential - 11/25/18 17:25 Blood leukocytes automated count (number/volume) 17.2 10*3/uL 4.3-11.0 Blood erythrocytes automated count (number/volume) 5.30 10*6/uL 4.35-5.85 Venous blood hemoglobin measurement (mass/volume) 16.1 g/dL 13.3-17.7 Blood hematocrit (volume fraction) 50 % 40-54 Automated erythrocyte mean corpuscular volume 94 [ foz_us] 80-99 Automated erythrocyte mean corpuscular h emoglobin (mass per erythrocyte) 30 pg 25-34 Automated erythrocyte mean corpuscular h emoglobin concentration measurement (mass/volume) 32 g/dL 32-36 Automated erythrocyte distribution width ratio 13. 5 % 10.0- 14.5 Automated blood platelet count (count/volume) 410 10*3/uL 130-400 Automated blood platelet mean volume measurement 9.6 [foz_us] 7.4-10.4 Automated blood neutrophils/100 leukocytes 82 % 42-75 Automated blood lymphocytes/100 leukocytes 13 % 12-44 Blood monocytes/100 leukocytes 4 % 0-12 Automated blood eosinophils/100 leukocytes 0 % 0-10 Automated blood basophils/100 leukocytes 0 % 0-10 Blood neutrophils automated count (number/volume) 14.1 10*3 1.8-7.8 Blood lymphocytes automated count (number/volume) 2.2 10*3 1.0-4.0 Blood monocytes automated count (number/volume) 0. 7 10*3 0.0-1.0 Automated eosinophil count 0.1 10*3/uL 0 .0-0.3 Automated blood basophil count (count/volume) 0.1 10*3/uL 0.0-0.1 Comprehensive metabolic panel - 11/25/18 17:25 Serum or plasma sodium measurement (moles/volume) 143 mmol/L 135-145 Serum or plasma potassium measurement (moles/volume) 4.2 mmol/L 3.6-5.0 Serum or plasma chloride measurement (moles/volume) 98 mmol/L 98-107 Carbon dioxide 29 mmol/L 21-32 Serum or plasma anion gap determination (moles/volume) 16 mmol/L 5-14 Serum or plasma urea nitrogen measurement (mass/volume ) 15 mg/dL 7-18 Serum or plasma creatinine measurement (mass/volume) 1.12 mg/dL 0.60-1.30 Serum or plasma urea nitrogen/creatinine mass ratio 13 NRG Serum or plasma creatinine measurement w ith calculation of estimated glomerular filtration rate > NRG Serum or plasma glucose measurement (mass/volume) 174 mg/dL 70-105 Serum or plasma calcium measurement (mass/volume) 10.0 mg/dL 8.5-10.1 Serum or plasma total bilirubin measurement (mass/volu me) 0.4 mg/dL 0.1-1.0 Serum or plasma alkaline phosphatase [place] sure[place] (enzymatic activity/volume) 90 U/L 40-136 Serum or plasma aspartate aminotransfera se measurement (enzymatic activity/volume) 13 U/L 5-34 Serum or plasma alanine aminotransferase measurement (enzymatic activity/volume) 11 U/L 0-55 Serum or plasma protein measurement (mass/volume) 8.4 g/dL 6.4-8.2 Serum or plasma albumin measurement (mass/volume) 4.6 g/dL 3.2-4.5 Lipase - 11/25/18 17:25 Lipase 76 U/L 8-78 Serum or plasma creatine kinase MB measu rement (enzymatic activity/volume) - 11/25/18 17:25 Serum or plasma creatine kinase MB measu rement (enzymatic activity/volume) 7.0 ng/mL <6.6 Manual absolute plasma cell count - 11/15 06/05 17:25 Blood monocytes/100 leukocytes 4 % NRG Manual blood segmented neutrophils/100 leukocytes 68 % NRG Blood band neutrophils/100 leukocytes 4 % NRG Manual blood lymphocytes/100 leukocytes 21 % NRG Manual eosinophils/100 leukocytes in nose 3 % NRG Manual blood basophils/100 leukocytes 0 % NRG Blood erythrocyte morphology finding identification NORMAL NRG Serum or plasma troponin i.cardiac measu rement (mass/volume) - 11/25/18 17:25 Serum or plasma troponin i.cardiac measurement (mass/v olume) < ng/mL <0.30 Blood lactic acid measurement (moles/vol ume) - 11/25/18 18:45 Blood lactic acid measurement (moles/volume) 2.20 mmol/L 0.50-2.00 Bacterial blood culture - 11/25/18 18:45 Bacterial blood culture NG NRG Bacterial blood culture - 11/25/18 19:10 Bacterial blood culture NG NRG Complete urinalysis with reflex to cultu re - 11/25/18 19:40 Urine color determination YELLOW NRG Urine clarity determination CLEAR NR G Urine pH measurement by test strip 6.5 5-9 Specific gravity of urine by test strip 1.015 1.016-1.022 Urine protein assay by test strip, semi-quantitative TRACE NEGATIVE Urine glucose detection by automated test strip NE GATIVE NEGATIVE Erythrocytes detection in urine sediment by light micr oscopy NEGATIVE NEGATIVE Urine ketones detection by automated test strip NE GATIVE NEGATIVE Urine nitrite detection by test strip NEGATIVE NEGATIVE Urine total bilirubin detection by test strip NEGA TIVE NEGATIVE Urine urobilinogen measurement by automated test strip (mass/volume) 0.2 mg/dL NORMAL Urine leukocyte esterase detection by dipstick NEG ATIVE NEGATIVE Automated urine sediment erythrocyte cou nt by microscopy (number/high power field) NONE NRG Automated urine sediment leukocyte count by microscopy (number/high power field) RARE NRG Bacteria detection in urine sediment by light microsco py NONE NRG Squamous epithelial cells detection in u rine sediment by light microscopy 0-2 NRG Crystals detection in urine sediment by light microsco py NONE NRG Casts detection in urine sediment by light microscopy PRESENT NRG Mucus detection in urine sediment by light microscopy TRACE NRG Complete urinalysis with reflex to culture NO NRG Hyaline casts detection in urine sediment by light shirley roscopy 5-10 NRG Serum or plasma creatine kinase MB measu rement (enzymatic activity/volume) - 11/26/18 01:01 Serum or plasma creatine kinase MB measu rement (enzymatic activity/volume) 5.6 ng/mL <6.6 Automated blood complete blood count (he mogram) panel - 11/26/18 07:05 Blood leukocytes automated count (number/volume) 10.0 10*3/uL 4.3-11.0 Blood erythrocytes automated count (number/volume) 4.84 10*6/uL 4.35-5.85 Venous blood hemoglobin measurement (mass/volume) 14.5 g/dL 13.3-17.7 Blood hematocrit (volume fraction) 45 % 40-54 Automated erythrocyte mean corpuscular volume 93 [ foz_us] 80-99 Automated erythrocyte mean corpuscular h emoglobin (mass per erythrocyte) 30 pg 25-34 Automated erythrocyte mean corpuscular h emoglobin concentration measurement (mass/volume) 32 g/dL 32-36 Automated erythrocyte distribution width ratio 14. 2 % 10.0- 14.5 Automated blood platelet count (count/volume) 260 10*3/uL 130-400 Automated blood platelet mean volume measurement 9.6 [foz_us] 7.4-10.4 Comprehensive metabolic panel - 11/26/18 07:05 Serum or plasma sodium measurement (moles/volume) 145 mmol/L 135-145 Serum or plasma potassium measurement (moles/volume) 3.7 mmol/L 3.6-5.0 Serum or plasma chloride measurement (moles/volume) 103 mmol/L 98-107 Carbon dioxide 27 mmol/L 21-32 Serum or plasma anion gap determination (moles/volume) 15 mmol/L 5-14 Serum or plasma urea nitrogen measurement (mass/volume ) 16 mg/dL 7-18 Serum or plasma creatinine measurement (mass/volume) 1.04 mg/dL 0.60-1.30 Serum or plasma urea nitrogen/creatinine mass ratio 15 NRG Serum or plasma creatinine measurement w ith calculation of estimated glomerular filtration rate > NRG Serum or plasma glucose measurement (mass/volume) 138 mg/dL 70-105 Serum or plasma calcium measurement (mass/volume) 9.3 mg/dL 8.5-10.1 Serum or plasma total bilirubin measurement (mass/volu me) 0.3 mg/dL 0.1-1.0 Serum or plasma alkaline phosphatase [place] sure[place] (enzymatic activity/volume) 77 U/L 40-136 Serum or plasma aspartate aminotransfera se measurement (enzymatic activity/volume) 9 U/L 5-34 Serum or plasma alanine aminotransferase measurement (enzymatic activity/volume) 11 U/L 0-55 Serum or plasma protein measurement (mass/volume) 7.3 g/dL 6.4-8.2 Serum or plasma albumin measurement (mass/volume) 4.0 g/dL 3.2-4.5 CALCIUM CORRECTED 9.3 mg/dL 8.5-10.1 Complete blood count (CBC) with automate d white blood cell (WBC) differential - 11/27/18 04:00 Blood leukocytes automated count (number/volume) 7.6 10*3/uL 4.3-11.0 Blood erythrocytes automated count (number/volume) 4.18 10*6/uL 4.35-5.85 Venous blood hemoglobin measurement (mass/volume) 12.8 g/dL 13.3-17.7 Blood hematocrit (volume fraction) 40 % 40-54 Automated erythrocyte mean corpuscular volume 95 [ foz_us] 80-99 Automated erythrocyte mean corpuscular h emoglobin (mass per erythrocyte) 31 pg 25-34 Automated erythrocyte mean corpuscular h emoglobin concentration measurement (mass/volume) 32 g/dL 32-36 Automated erythrocyte distribution width ratio 14. 2 % 10.0- 14.5 Automated blood platelet count (count/volume) 253 10*3/uL 130-400 Automated blood platelet mean volume measurement 10.1 [foz_us] 7.4-10.4 Automated blood neutrophils/100 leukocytes 69 % 42-75 Automated blood lymphocytes/100 leukocytes 23 % 12-44 Blood monocytes/100 leukocytes 8 % 0-12 Automated blood eosinophils/100 leukocytes 0 % 0-10 Automated blood basophils/100 leukocytes 0 % 0-10 Blood neutrophils automated count (number/volume) 5.2 10*3 1.8-7.8 Blood lymphocytes automated count (number/volume) 1.7 10*3 1.0-4.0 Blood monocytes automated count (number/volume) 0. 6 10*3 0.0-1.0 Automated eosinophil count 0.0 10*3/uL 0 .0-0.3 Automated blood basophil count (count/volume) 0.0 10*3/uL 0.0-0.1 Comprehensive metabolic panel - 11/27/18 04:00 Serum or plasma sodium measurement (moles/volume) 145 mmol/L 135-145 Serum or plasma potassium measurement (moles/volume) 3.4 mmol/L 3.6-5.0 Serum or plasma chloride measurement (moles/volume) 106 mmol/L 98-107 Carbon dioxide 26 mmol/L 21-32 Serum or plasma anion gap determination (moles/volume) 13 mmol/L 5-14 Serum or plasma urea nitrogen measurement (mass/volume ) 20 mg/dL 7-18 Serum or plasma creatinine measurement (mass/volume) 1.00 mg/dL 0.60-1.30 Serum or plasma urea nitrogen/creatinine mass ratio 20 NRG Serum or plasma creatinine measurement w ith calculation of estimated glomerular filtration rate > NRG Serum or plasma glucose measurement (mass/volume) 99 mg/dL 70-105 Serum or plasma calcium measurement (mass/volume) 8.9 mg/dL 8.5-10.1 Serum or plasma total bilirubin measurement (mass/volu me) 0.3 mg/dL 0.1-1.0 Serum or plasma alkaline phosphatase [place] sure[place] (enzymatic activity/volume) 60 U/L 40-136 Serum or plasma aspartate aminotransfera se measurement (enzymatic activity/volume) 11 U/L 5-34 Serum or plasma alanine aminotransferase measurement (enzymatic activity/volume) 8 U/L 0-55 Serum or plasma protein measurement (mass/volume) 6.4 g/dL 6.4-8.2 Serum or plasma albumin measurement (mass/volume) 3.6 g/dL 3.2-4.5 CALCIUM CORRECTED 9.2 mg/dL 8.5-10.1 Complete blood count (CBC) with automate d white blood cell (WBC) differential - 11/28/18 05:12 Blood leukocytes automated count (number/volume) 5.9 10*3/uL 4.3-11.0 Blood erythrocytes automated count (number/volume) 3.78 10*6/uL 4.35-5.85 Venous blood hemoglobin measurement (mass/volume) 11.5 g/dL 13.3-17.7 Blood hematocrit (volume fraction) 36 % 40-54 Automated erythrocyte mean corpuscular volume 94 [ foz_us] 80-99 Automated erythrocyte mean corpuscular h emoglobin (mass per erythrocyte) 30 pg 25-34 Automated erythrocyte mean corpuscular h emoglobin concentration measurement (mass/volume) 32 g/dL 32-36 Automated erythrocyte distribution width ratio 13. 8 % 10.0- 14.5 Automated blood platelet count (count/volume) 189 10*3/uL 130-400 Automated blood platelet mean volume measurement 9.7 [foz_us] 7.4-10.4 Automated blood neutrophils/100 leukocytes 55 % 42-75 Automated blood lymphocytes/100 leukocytes 34 % 12-44 Blood monocytes/100 leukocytes 8 % 0-12 Automated blood eosinophils/100 leukocytes 3 % 0-10 Automated blood basophils/100 leukocytes 0 % 0-10 Blood neutrophils automated count (number/volume) 3.3 10*3 1.8-7.8 Blood lymphocytes automated count (number/volume) 2.0 10*3 1.0-4.0 Blood monocytes automated count (number/volume) 0. 5 10*3 0.0-1.0 Automated eosinophil count 0.2 10*3/uL 0 .0-0.3 Automated blood basophil count (count/volume) 0.0 10*3/uL 0.0-0.1 Whole blood basic metabolic panel - 11/15 09/03 05:12 Serum or plasma sodium measurement (moles/volume) 141 mmol/L 135-145 Serum or plasma potassium measurement (moles/volume) 3.3 mmol/L 3.6-5.0 Serum or plasma chloride measurement (moles/volume) 106 mmol/L 98-107 Carbon dioxide 23 mmol/L 21-32 Serum or plasma anion gap determination (moles/volume) 12 mmol/L 5-14 Serum or plasma urea nitrogen measurement (mass/volume ) 15 mg/dL 7-18 Serum or plasma creatinine measurement (mass/volume) 0.91 mg/dL 0.60-1.30 Serum or plasma urea nitrogen/creatinine mass ratio 16 NRG Serum or plasma creatinine measurement w ith calculation of estimated glomerular filtration rate > NRG Serum or plasma glucose measurement (mass/volume) 82 mg/dL 70-105 Serum or plasma calcium measurement (mass/volume) 8.7 mg/dL 8.5-10.1 Urinalysis - 01/10/19 11:28 Icotest Negative Negative Urine Volume Urine Volume Sufficient (10mL) Urine-Appearance Clear Clear Urine-Bacteria Trace Urine-Bilirubin 2+ Negative Urine-Blood Trace-intact Negative Urine-Color [place] (Color May Affect Dipstick Res ults) Colorless-Lt. Yellow Urine-Glucose Negative Negative Urine-Ketones 1+ Negative Urine-Leukocytes Negative Negative Urine-Mucus 2+ Urine-Nitrite Negative Negative Urine-Other Urine Saved if Culture Need ed (48hrs from time of collection) Urine-pH 5.5 5-8.5 Urine-Protein 2+ Negative Urine-RBC 0-2/HPF Urine-Specific [place] 1.020 1.000-1 .030 Urine-WBC Negative Urobilinogen 1.0 E.U./dL 0.2-1.0 MRSA Screen - 01/10/19 20:37 FINAL CULTURE RESULTS MRSA Negative Nasal Culture MEDIA PLATED Setup at 21:03 on 01/10/2019 [facility] - 01/11/19 05:34 Anion Gap 16 6-14 BUN 14 mg/dL 5-25 Calcium 8.6 mg/dL 8.3-10.4 Chloride 103 mmol/L 95-114 CO2 22 mEq/L 22-33 Creat 0.95 mg/dL 0.50-1.50 eGFR 80 mL/min/1.73m2 >59 Glucose 89 mg/dL 70-110 Osmo 281 280-295 Potassium 4.8 mmol/L 3.5-5.3 Sodium 136 mmol/L 134-148 Comprehensive Metabolic Panel - 01/12/19 05:25 Albumin 3.1 g/dL 3.6-5.1 ALP 88 U/L 35-130 ALT 9 U/L 6-45 Anion Gap 15 6-14 AST 9 U/L 2-40 BUN 7 mg/dL 5-25 Calcium 8.6 mg/dL 8.3-10.4 Chloride 103 mmol/L 95-114 CO2 24 mEq/L 22-33 Creat 0.83 mg/dL 0.50-1.50 eGFR 94 mL/min/1.73m2 >59 Globulin 2.6 g/dL 2.3-3.5 Glucose 97 mg/dL 70-110 Osmo 281 280-295 Potassium 4.7 mmol/L 3.5-5.3 Sodium 137 mmol/L 134-148 TBil 0.3 mg/dL 0.2-1.2 TP 5.7 g/dL 6.0-8.3 Complete blood count (CBC) with automate d white blood cell (WBC) differential - 02/08/19 22:32 Blood leukocytes automated count (number/volume) 14.4 10*3/uL 4.3-11.0 Blood erythrocytes automated count (number/volume) 4.73 10*6/uL 4.35-5.85 Venous blood hemoglobin measurement (mass/volume) 13.6 g/dL 13.3-17.7 Blood hematocrit (volume fraction) 43 % 40-54 Automated erythrocyte mean corpuscular volume 90 [ foz_us] 80-99 Automated erythrocyte mean corpuscular h emoglobin (mass per erythrocyte) 29 pg 25-34 Automated erythrocyte mean corpuscular h emoglobin concentration measurement (mass/volume) 32 g/dL 32-36 Automated erythrocyte distribution width ratio 14. 8 % 10.0- 14.5 Automated blood platelet count (count/volume) 519 10*3/uL 130-400 Automated blood platelet mean volume measurement 9.4 [foz_us] 7.4-10.4 Automated blood neutrophils/100 leukocytes 81 % 42-75 Automated blood lymphocytes/100 leukocytes 13 % 12-44 Blood monocytes/100 leukocytes 5 % 0-12 Automated blood eosinophils/100 leukocytes 1 % 0-10 Automated blood basophils/100 leukocytes 0 % 0-10 Blood neutrophils automated count (number/volume) 11.6 10*3 1.8-7.8 Blood lymphocytes automated count (number/volume) 1.8 10*3 1.0-4.0 Blood monocytes automated count (number/volume) 0. 8 10*3 0.0-1.0 Automated eosinophil count 0.1 10*3/uL 0 .0-0.3 Automated blood basophil count (count/volume) 0.0 10*3/uL 0.0-0.1 Comprehensive metabolic panel - 02/08/19 22:32 Serum or plasma sodium measurement (moles/volume) 140 mmol/L 135-145 Serum or plasma potassium measurement (moles/volume) 4.0 mmol/L 3.6-5.0 Serum or plasma chloride measurement (moles/volume) 97 mmol/L 98-107 Carbon dioxide 26 mmol/L 21-32 Serum or plasma anion gap determination (moles/volume) 17 mmol/L 5-14 Serum or plasma urea nitrogen measurement (mass/volume ) 15 mg/dL 7-18 Serum or plasma creatinine measurement (mass/volume) 1.04 mg/dL 0.60-1.30 Serum or plasma urea nitrogen/creatinine mass ratio 14 NRG Serum or plasma creatinine measurement w ith calculation of estimated glomerular filtration rate > NRG Serum or plasma glucose measurement (mass/volume) 152 mg/dL 70-105 Serum or plasma calcium measurement (mass/volume) 10.5 mg/dL 8.5-10.1 Serum or plasma total bilirubin measurement (mass/volu me) 0.2 mg/dL 0.1-1.0 Serum or plasma alkaline phosphatase [place] surement (enzymatic activity/volume) 72 U/L 40-136 Serum or plasma aspartate aminotransfera se measurement (enzymatic activity/volume) 10 U/L 5-34 Serum or plasma alanine aminotransferase measurement (enzymatic activity/volume) 9 U/L 0-55 Serum or plasma protein measurement (mass/volume) 8.7 g/dL 6.4-8.2 Serum or plasma albumin measurement (mass/volume) 4.1 g/dL 3.2-4.5 CALCIUM CORRECTED 10.4 mg/dL 8.5-10.1 Lipase - 02/08/19 22:32 Lipase 47 U/L 8-78 Serum or plasma ethanol measurement (mas s/volume) - 02/08/19 22:32 Serum or plasma ethanol measurement (mass/volume) < mg/dL <10 Manual absolute plasma cell count - 01/17 09/03 22:32 Blood monocytes/100 leukocytes 4 % NRG Manual blood segmented neutrophils/100 leukocytes 61 % NRG Blood band neutrophils/100 leukocytes 17 % NRG Manual blood lymphocytes/100 leukocytes 16 % NRG Manual eosinophils/100 leukocytes in nose 2 % NRG Blood erythrocyte morphology finding identification NORMAL NRG Complete blood count (CBC) with automate d white blood cell (WBC) differential - 02/09/19 04:50 Blood leukocytes automated count (number/volume) 3.9 10*3/uL 4.3-11.0 Blood erythrocytes automated count (number/volume) 4.44 10*6/uL 4.35-5.85 Venous blood hemoglobin measurement (mass/volume) 12.7 g/dL 13.3-17.7 Blood hematocrit (volume fraction) 40 % 40-54 Automated erythrocyte mean corpuscular volume 89 [ foz_us] 80-99 Automated erythrocyte mean corpuscular h emoglobin (mass per erythrocyte) 29 pg 25-34 Automated erythrocyte mean corpuscular h emoglobin concentration measurement (mass/volume) 32 g/dL 32-36 Automated erythrocyte distribution width ratio 15. 1 % 10.0- 14.5 Automated blood platelet count (count/volume) 347 10*3/uL 130-400 Automated blood platelet mean volume measurement 9.4 [foz_us] 7.4-10.4 Automated blood neutrophils/100 leukocytes 75 % 42-75 Automated blood lymphocytes/100 leukocytes 19 % 12-44 Blood monocytes/100 leukocytes 5 % 0-12 Automated blood eosinophils/100 leukocytes 1 % 0-10 Automated blood basophils/100 leukocytes 0 % 0-10 Blood neutrophils automated count (number/volume) 3.0 10*3 1.8-7.8 Blood lymphocytes automated count (number/volume) 0.8 10*3 1.0-4.0 Blood monocytes automated count (number/volume) 0. 2 10*3 0.0-1.0 Automated eosinophil count 0.0 10*3/uL 0 .0-0.3 Automated blood basophil count (count/volume) 0.0 10*3/uL 0.0-0.1 Comprehensive metabolic panel - 02/09/19 04:50 Serum or plasma sodium measurement (moles/volume) 141 mmol/L 135-145 Serum or plasma potassium measurement (moles/volume) 4.0 mmol/L 3.6-5.0 Serum or plasma chloride measurement (moles/volume) 100 mmol/L 98-107 Carbon dioxide 27 mmol/L 21-32 Serum or plasma anion gap determination (moles/volume) 14 mmol/L 5-14 Serum or plasma urea nitrogen measurement (mass/volume ) 16 mg/dL 7-18 Serum or plasma creatinine measurement (mass/volume) 1.10 mg/dL 0.60-1.30 Serum or plasma urea nitrogen/creatinine mass ratio 15 NRG Serum or plasma creatinine measurement w ith calculation of estimated glomerular filtration rate > NRG Serum or plasma glucose measurement (mass/volume) 120 mg/dL 70-105 Serum or plasma calcium measurement (mass/volume) 10.0 mg/dL 8.5-10.1 Serum or plasma total bilirubin measurement (mass/volu me) 0.2 mg/dL 0.1-1.0 Serum or plasma alkaline phosphatase [place] surement (enzymatic activity/volume) 59 U/L 40-136 Serum or plasma aspartate aminotransfera se measurement (enzymatic activity/volume) 13 U/L 5-34 Serum or plasma alanine aminotransferase measurement (enzymatic activity/volume) 11 U/L 0-55 Serum or plasma protein measurement (mass/volume) 7.7 g/dL 6.4-8.2 Serum or plasma albumin measurement (mass/volume) 3.8 g/dL 3.2-4.5 CALCIUM CORRECTED 10.2 mg/dL 8.5-10.1 Comprehensive metabolic panel - 02/10/19 06:02 Serum or plasma sodium measurement (moles/volume) 139 mmol/L 135-145 Serum or plasma potassium measurement (moles/volume) 4.3 mmol/L 3.6-5.0 Serum or plasma chloride measurement (moles/volume) 98 mmol/L 98-107 Carbon dioxide 29 mmol/L 21-32 Serum or plasma anion gap determination (moles/volume) 12 mmol/L 5-14 Serum or plasma urea nitrogen measurement (mass/volume ) 27 mg/dL 7-18 Serum or plasma creatinine measurement (mass/volume) 1.17 mg/dL 0.60-1.30 Serum or plasma urea nitrogen/creatinine mass ratio 23 NRG Serum or plasma creatinine measurement w ith calculation of estimated glomerular filtration rate > NRG Serum or plasma glucose measurement (mass/volume) 99 mg/dL 70-105 Serum or plasma calcium measurement (mass/volume) 9.3 mg/dL 8.5-10.1 Serum or plasma total bilirubin measurement (mass/volu me) 0.5 mg/dL 0.1-1.0 Serum or plasma alkaline phosphatase [place] surement (enzymatic activity/volume) 67 U/L 40-136 Serum or plasma aspartate aminotransfera se measurement (enzymatic activity/volume) 12 U/L 5-34 Serum or plasma alanine aminotransferase measurement (enzymatic activity/volume) 8 U/L 0-55 Serum or plasma protein measurement (mass/volume) 7.4 g/dL 6.4-8.2 Serum or plasma albumin measurement (mass/volume) 3.5 g/dL 3.2-4.5 CALCIUM CORRECTED 9.7 mg/dL 8.5-10.1 Complete blood count (CBC) with automate d white blood cell (WBC) differential - 02/10/19 06:07 Blood leukocytes automated count (number/volume) 13.8 10*3/uL 4.3-11.0 Blood erythrocytes automated count (number/volume) 3.83 10*6/uL 4.35-5.85 Venous blood hemoglobin measurement (mass/volume) 10.7 g/dL 13.3-17.7 Blood hematocrit (volume fraction) 34 % 40-54 Automated erythrocyte mean corpuscular volume 88 [ foz_us] 80-99 Automated erythrocyte mean corpuscular h emoglobin (mass per erythrocyte) 28 pg 25-34 Automated erythrocyte mean corpuscular h emoglobin concentration measurement (mass/volume) 32 g/dL 32-36 Automated erythrocyte distribution width ratio 15. 2 % 10.0- 14.5 Automated blood platelet count (count/volume) 432 10*3/uL 130-400 Automated blood platelet mean volume measurement 9.7 [foz_us] 7.4-10.4 Automated blood neutrophils/100 leukocytes 83 % 42-75 Automated blood lymphocytes/100 leukocytes 11 % 12-44 Blood monocytes/100 leukocytes 5 % 0-12 Automated blood eosinophils/100 leukocytes 0 % 0-10 Automated blood basophils/100 leukocytes 0 % 0-10 Blood neutrophils automated count (number/volume) 11.4 10*3 1.8-7.8 Blood lymphocytes automated count (number/volume) 1.6 10*3 1.0-4.0 Blood monocytes automated count (number/volume) 0. 8 10*3 0.0-1.0 Automated eosinophil count 0.0 10*3/uL 0 .0-0.3 Automated blood basophil count (count/volume) 0.0 10*3/uL 0.0-0.1 Complete blood count (CBC) with automate d white blood cell (WBC) differential - 02/11/19 06:50 Blood leukocytes automated count (number/volume) 10.3 10*3/uL 4.3-11.0 Blood erythrocytes automated count (number/volume) 3.67 10*6/uL 4.35-5.85 Venous blood hemoglobin measurement (mass/volume) 10.4 g/dL 13.3-17.7 Blood hematocrit (volume fraction) 33 % 40-54 Automated erythrocyte mean corpuscular volume 89 [ foz_us] 80-99 Automated erythrocyte mean corpuscular h emoglobin (mass per erythrocyte) 28 pg 25-34 Automated erythrocyte mean corpuscular h emoglobin concentration measurement (mass/volume) 32 g/dL 32-36 Automated erythrocyte distribution width ratio 14. 9 % 10.0- 14.5 Automated blood platelet count (count/volume) 321 10*3/uL 130-400 Automated blood platelet mean volume measurement 9.2 [foz_us] 7.4-10.4 Automated blood neutrophils/100 leukocytes 81 % 42-75 Automated blood lymphocytes/100 leukocytes 12 % 12-44 Blood monocytes/100 leukocytes 5 % 0-12 Automated blood eosinophils/100 leukocytes 2 % 0-10 Automated blood basophils/100 leukocytes 0 % 0-10 Blood neutrophils automated count (number/volume) 8.4 10*3 1.8-7.8 Blood lymphocytes automated count (number/volume) 1.3 10*3 1.0-4.0 Blood monocytes automated count (number/volume) 0. 5 10*3 0.0-1.0 Automated eosinophil count 0.2 10*3/uL 0 .0-0.3 Automated blood basophil count (count/volume) 0.0 10*3/uL 0.0-0.1 Comprehensive metabolic panel - 02/11/19 06:50 Serum or plasma sodium measurement (moles/volume) 137 mmol/L 135-145 Serum or plasma potassium measurement (moles/volume) 3.8 mmol/L 3.6-5.0 Serum or plasma chloride measurement (moles/volume) 97 mmol/L 98-107 Carbon dioxide 28 mmol/L 21-32 Serum or plasma anion gap determination (moles/volume) 12 mmol/L 5-14 Serum or plasma urea nitrogen measurement (mass/volume ) 21 mg/dL 7-18 Serum or plasma creatinine measurement (mass/volume) 1.12 mg/dL 0.60-1.30 Serum or plasma urea nitrogen/creatinine mass ratio 19 NRG Serum or plasma creatinine measurement w ith calculation of estimated glomerular filtration rate > NRG Serum or plasma glucose measurement (mass/volume) 83 mg/dL 70-105 Serum or plasma calcium measurement (mass/volume) 9.3 mg/dL 8.5-10.1 Serum or plasma total bilirubin measurement (mass/volu me) 0.3 mg/dL 0.1-1.0 Serum or plasma alkaline phosphatase [place] surement (enzymatic activity/volume) 55 U/L 40-136 Serum or plasma aspartate aminotransfera se measurement (enzymatic activity/volume) 16 U/L 5-34 Serum or plasma alanine aminotransferase measurement (enzymatic activity/volume) 14 U/L 0-55 Serum or plasma protein measurement (mass/volume) 6.9 g/dL 6.4-8.2 Serum or plasma albumin measurement (mass/volume) 3.4 g/dL 3.2-4.5 CALCIUM CORRECTED 9.8 mg/dL 8.5-10.1 Influenza virus A and B antigen detectio n - 06/17/19 17:14 FLU RESULT NEGATIVE FOR INFLUENZA A AND B ANTIGENS BY [facility] Complete blood count (CBC) with automate d white blood cell (WBC) differential - 06/17/19 17:20 Blood leukocytes automated count (number/volume) 16.0 10*3/uL 4.3-11.0 Blood erythrocytes automated count (number/volume) 5.34 10*6/uL 4.35-5.85 Venous blood hemoglobin measurement (mass/volume) 14.8 g/dL 13.3-17.7 Blood hematocrit (volume fraction) 47 % 40-54 Automated erythrocyte mean corpuscular volume 87 [ foz_us] 80-99 Automated erythrocyte mean corpuscular h emoglobin (mass per erythrocyte) 28 pg 25-34 Automated erythrocyte mean corpuscular h emoglobin concentration measurement (mass/volume) 32 g/dL 32-36 Automated erythrocyte distribution width ratio 16. 0 % 10.0- 14.5 Automated blood platelet count (count/volume) 539 10*3/uL 130-400 Automated blood platelet mean volume measurement 9.4 [foz_us] 7.4-10.4 Automated blood neutrophils/100 leukocytes 76 % 42-75 Automated blood lymphocytes/100 leukocytes 17 % 12-44 Blood monocytes/100 leukocytes 7 % 0-12 Automated blood eosinophils/100 leukocytes 0 % 0-10 Automated blood basophils/100 leukocytes 0 % 0-10 Blood neutrophils automated count (number/volume) 12.1 10*3 1.8-7.8 Blood lymphocytes automated count (number/volume) 2.7 10*3 1.0-4.0 Blood monocytes automated count (number/volume) 1. 2 10*3 0.0-1.0 Automated eosinophil count 0.1 10*3/uL 0 .0-0.3 Automated blood basophil count (count/volume) 0.1 10*3/uL 0.0-0.1 Comprehensive metabolic panel - 06/17/19 17:20 Serum or plasma sodium measurement (moles/volume) 136 mmol/L 135-145 Serum or plasma potassium measurement (moles/volume) 3.8 mmol/L 3.6-5.0 Serum or plasma chloride measurement (moles/volume) 90 mmol/L 98-107 Carbon dioxide 22 mmol/L 21-32 Serum or plasma anion gap determination (moles/volume) 24 mmol/L 5-14 Serum or plasma urea nitrogen measurement (mass/volume ) 26 mg/dL 7-18 Serum or plasma creatinine measurement (mass/volume) 1.19 mg/dL 0.60-1.30 Serum or plasma urea nitrogen/creatinine mass ratio 22 NRG Serum or plasma creatinine measurement w ith calculation of estimated glomerular filtration rate > NRG Serum or plasma glucose measurement (mass/volume) 126 mg/dL 70-105 Serum or plasma calcium measurement (mass/volume) 8.5 mg/dL 8.5-10.1 Serum or plasma total bilirubin measurement (mass/volu me) 0.4 mg/dL 0.1-1.0 Serum or plasma alkaline phosphatase [place] surement (enzymatic activity/volume) 80 U/L 40-136 Serum or plasma aspartate aminotransfera se measurement (enzymatic activity/volume) 18 U/L 5-34 Serum or plasma alanine aminotransferase measurement (enzymatic activity/volume) 12 U/L 0-55 Serum or plasma protein measurement (mass/volume) 8.1 g/dL 6.4-8.2 Serum or plasma albumin measurement (mass/volume) 3.8 g/dL 3.2-4.5 CALCIUM CORRECTED 8.7 mg/dL 8.5-10.1 TROPONIN I FS - 06/17/19 17:20 TROPONIN I FS < 0.30 <0.30 PROBNP FS - 06/17/19 17:20 PROBNP FS 328.0 pg/mL <75.0 Manual absolute plasma cell count - 05/20 06/06 17:20 Blood monocytes/100 leukocytes 6 % NRG Manual blood segmented neutrophils/100 leukocytes 67 % NRG Blood band neutrophils/100 leukocytes 5 % NRG Manual blood lymphocytes/100 leukocytes 20 % NRG Manual eosinophils/100 leukocytes in nose 1 % NRG Manual blood basophils/100 leukocytes 0 % NRG Manual blood lymphocytes variant/100 leukocytes 1 % NRG Blood erythrocyte morphology finding identification NORMAL NRG Stool bacteria identification by culture - 06/18/19 17:31 Stool bacteria identification by culture N2 NRG Stool Rotavirus antigen detection - 06/06 17:31 ROTAVIRUS RESULT NEGATIVE BY IA NR Complete blood count (CBC) with automate d white blood cell (WBC) differential - 06/18/19 17:45 Blood leukocytes automated count (number/volume) 15.0 10*3/uL 4.3-11.0 Blood erythrocytes automated count (number/volume) 4.89 10*6/uL 4.35-5.85 Venous blood hemoglobin measurement (mass/volume) 13.6 g/dL 13.3-17.7 Blood hematocrit (volume fraction) 42 % 40-54 Automated erythrocyte mean corpuscular volume 86 [ foz_us] 80-99 Automated erythrocyte mean corpuscular h emoglobin (mass per erythrocyte) 28 pg 25-34 Automated erythrocyte mean corpuscular h emoglobin concentration measurement (mass/volume) 33 g/dL 32-36 Automated erythrocyte distribution width ratio 15. 9 % 10.0- 14.5 Automated blood platelet count (count/volume) 471 10*3/uL 130-400 Automated blood platelet mean volume measurement 9.6 [foz_us] 7.4-10.4 Automated blood neutrophils/100 leukocytes 80 % 42-75 Automated blood lymphocytes/100 leukocytes 13 % 12-44 Blood monocytes/100 leukocytes 6 % 0-12 Automated blood eosinophils/100 leukocytes 0 % 0-10 Automated blood basophils/100 leukocytes 0 % 0-10 Blood neutrophils automated count (number/volume) 12.0 10*3 1.8-7.8 Blood lymphocytes automated count (number/volume) 2.0 10*3 1.0-4.0 Blood monocytes automated count (number/volume) 0. 9 10*3 0.0-1.0 Automated eosinophil count 0.0 10*3/uL 0 .0-0.3 Automated blood basophil count (count/volume) 0.0 10*3/uL 0.0-0.1 Blood lactic acid measurement (moles/vol ume) - 06/18/19 17:45 Blood lactic acid measurement (moles/volume) 1.33 mmol/L 0.50-2.00 Serum or plasma ethanol measurement (mas s/volume) - 06/18/19 17:45 Serum or plasma ethanol measurement (mass/volume) < mg/dL <10 Comprehensive metabolic panel - 06/18/19 17:45 Serum or plasma sodium measurement (moles/volume) 137 mmol/L 135-145 Serum or plasma potassium measurement (moles/volume) 3.4 mmol/L 3.6-5.0 Serum or plasma chloride measurement (moles/volume) 88 mmol/L 98-107 Carbon dioxide 29 mmol/L 21-32 Serum or plasma anion gap determination (moles/volume) 20 mmol/L 5-14 Serum or plasma urea nitrogen measurement (mass/volume ) 25 mg/dL 7-18 Serum or plasma creatinine measurement (mass/volume) 1.01 mg/dL 0.60-1.30 Serum or plasma urea nitrogen/creatinine mass ratio 25 NRG Serum or plasma creatinine measurement w ith calculation of estimated glomerular filtration rate > NRG Serum or plasma glucose measurement (mass/volume) 146 mg/dL 70-105 Serum or plasma calcium measurement (mass/volume) 8.3 mg/dL 8.5-10.1 Serum or plasma total bilirubin measurement (mass/volu me) 0.3 mg/dL 0.1-1.0 Serum or plasma alkaline phosphatase [place] surement (enzymatic activity/volume) 72 U/L 40-136 Serum or plasma aspartate aminotransfera se measurement (enzymatic activity/volume) 14 U/L 5-34 Serum or plasma alanine aminotransferase measurement (enzymatic activity/volume) 11 U/L 0-55 Serum or plasma protein measurement (mass/volume) 7.6 g/dL 6.4-8.2 Serum or plasma albumin measurement (mass/volume) 3.8 g/dL 3.2-4.5 CALCIUM CORRECTED 8.5 mg/dL 8.5-10.1 TROPONIN I FS - 06/18/19 17:45 TROPONIN I FS < 0.30 <0.30 Lipase - 06/18/19 17:45 Lipase 30 U/L 8-78 Manual absolute plasma cell count - 06/06 17:45 Blood monocytes/100 leukocytes 10 % NRG Manual blood segmented neutrophils/100 leukocytes 62 % NRG Blood band neutrophils/100 leukocytes 10 % NRG Manual blood lymphocytes/100 leukocytes 16 % NRG Manual eosinophils/100 leukocytes in nose 0 % NRG Manual blood basophils/100 leukocytes 0 % NRG Blood lymphocytes variant/100 leukocytes 2 % NRG Blood erythrocyte morphology finding identification NORMAL NRG Bacterial blood culture - 06/18/19 17:45 Bacterial blood culture NG NRG C DIFFICILE AG + TOXIN A/B. - 06/18/19 1 7:50 RESULTS NEGATIVE FOR ANTIGEN AND TOXIN A/B NRG [id number] - 06/18/19 17:50 Bacterial blood culture - 06/18/19 19:15 Bacterial blood culture NG NRG Complete blood count (CBC) with automate d white blood cell (WBC) differential - 06/19/19 05:38 Blood leukocytes automated count (number/volume) 7.3 10*3/uL 4.3-11.0 Blood erythrocytes automated count (number/volume) 4.00 10*6/uL 4.35-5.85 Venous blood hemoglobin measurement (mass/volume) 11.1 g/dL 13.3-17.7 Blood hematocrit (volume fraction) 35 % 40-54 Automated erythrocyte mean corpuscular volume 87 [ foz_us] 80-99 Automated erythrocyte mean corpuscular h emoglobin (mass per erythrocyte) 28 pg 25-34 Automated erythrocyte mean corpuscular h emoglobin concentration measurement (mass/volume) 32 g/dL 32-36 Automated erythrocyte distribution width ratio 16. 1 % 10.0- 14.5 Automated blood platelet count (count/volume) 257 10*3/uL 130-400 Automated blood platelet mean volume measurement 9.5 [foz_us] 7.4-10.4 Automated blood neutrophils/100 leukocytes 61 % 42-75 Automated blood lymphocytes/100 leukocytes 27 % 12-44 Blood monocytes/100 leukocytes 10 % 0-12 Automated blood eosinophils/100 leukocytes 2 % 0-10 Automated blood basophils/100 leukocytes 0 % 0-10 Blood neutrophils automated count (number/volume) 4.5 10*3 1.8-7.8 Blood lymphocytes automated count (number/volume) 2.0 10*3 1.0-4.0 Blood monocytes automated count (number/volume) 0. 8 10*3 0.0-1.0 Automated eosinophil count 0.1 10*3/uL 0 .0-0.3 Automated blood basophil count (count/volume) 0.0 10*3/uL 0.0-0.1 Comprehensive metabolic panel - 06/19/19 05:38 Serum or plasma sodium measurement (moles/volume) 135 mmol/L 135-145 Serum or plasma potassium measurement (moles/volume) 2.9 mmol/L 3.6-5.0 Serum or plasma chloride measurement (moles/volume) 99 mmol/L 98-107 Carbon dioxide 24 mmol/L 21-32 Serum or plasma anion gap determination (moles/volume) 12 mmol/L 5-14 Serum or plasma urea nitrogen measurement (mass/volume ) 17 mg/dL 7-18 Serum or plasma creatinine measurement (mass/volume) 0.81 mg/dL 0.60-1.30 Serum or plasma urea nitrogen/creatinine mass ratio 21 NRG Serum or plasma creatinine measurement w ith calculation of estimated glomerular filtration rate > NRG Serum or plasma glucose measurement (mass/volume) 118 mg/dL 70-105 Serum or plasma calcium measurement (mass/volume) 7.4 mg/dL 8.5-10.1 Serum or plasma total bilirubin measurement (mass/volu me) 0.3 mg/dL 0.1-1.0 Serum or plasma alkaline phosphatase [place] surement (enzymatic activity/volume) 52 U/L 40-136 Serum or plasma aspartate aminotransfera se measurement (enzymatic activity/volume) 13 U/L 5-34 Serum or plasma alanine aminotransferase measurement (enzymatic activity/volume) 11 U/L 0-55 Serum or plasma protein measurement (mass/volume) 5.6 g/dL 6.4-8.2 Serum or plasma albumin measurement (mass/volume) 2.8 g/dL 3.2-4.5 CALCIUM CORRECTED 8.4 mg/dL 8.5-10.1 Magnesium - 06/19/19 05:38 Magnesium 0.8 mg/dL 1.6-2.4 Serum or plasma potassium measurement (m oles/volume) - 06/19/19 16:25 Serum or plasma potassium measurement (moles/volume) 3.4 mmol/L 3.6-5.0 Magnesium - 06/19/19 17:38 Magnesium 2.7 mg/dL 1.6-2.4 Whole blood basic metabolic panel - 08/04 06:13 Serum or plasma sodium measurement (moles/volume) 139 mmol/L 135-145 Serum or plasma potassium measurement (moles/volume) 3.0 mmol/L 3.6-5.0 Serum or plasma chloride measurement (moles/volume) 107 mmol/L 98-107 Carbon dioxide 25 mmol/L - Serum or plasma anion gap determination (moles/volume) 7 mmol/L 5-14 Serum or plasma urea nitrogen measurement (mass/volume ) 8 mg/dL 7-18 Serum or plasma creatinine measurement (mass/volume) 0.63 mg/dL 0.60-1.30 Serum or plasma urea nitrogen/creatinine mass ratio 13 NRG Serum or plasma creatinine measurement w ith calculation of estimated glomerular filtration rate > NRG Serum or plasma glucose measurement (mass/volume) 125 mg/dL 70-105 Serum or plasma calcium measurement (mass/volume) 7.5 mg/dL 8.5-10.1 Serum or plasma phosphate measurement (m ass/volume) - 06/20/19 06:13 Serum or plasma phosphate measurement (mass/volume) 1.6 mg/dL 2.3-4.7 Magnesium - 06/20/19 06:13 Magnesium 2.1 mg/dL 1.6-2.4 Serum or plasma potassium measurement (m oles/volume) - 06/20/19 15:50 Serum or plasma potassium measurement (moles/volume) 4.9 mmol/L 3.6-5.0 Whole blood basic metabolic panel - 09/04 05:19 Serum or plasma sodium measurement (moles/volume) 142 mmol/L 135-145 Serum or plasma potassium measurement (moles/volume) 2.9 mmol/L 3.6-5.0 Serum or plasma chloride measurement (moles/volume) 111 mmol/L 98-107 Carbon dioxide 23 mmol/L - Serum or plasma anion gap determination (moles/volume) 8 mmol/L 5-14 Serum or plasma urea nitrogen measurement (mass/volume ) 4 mg/dL 7-18 Serum or plasma creatinine measurement (mass/volume) 0.62 mg/dL 0.60-1.30 Serum or plasma urea nitrogen/creatinine mass ratio 6 NRG Serum or plasma creatinine measurement w ith calculation of estimated glomerular filtration rate > NRG Serum or plasma glucose measurement (mass/volume) 123 mg/dL 70-105 Serum or plasma calcium measurement (mass/volume) 7.8 mg/dL 8.5-10.1 Serum or plasma phosphate measurement (m ass/volume) - 06/21/19 05:19 Serum or plasma phosphate measurement (mass/volume) 1.8 mg/dL 2.3-4.7 Magnesium - 06/21/19 05:19 Magnesium 1.7 mg/dL 1.6-2.4 Whole blood basic metabolic panel - 10/04 05:54 Serum or plasma sodium measurement (moles/volume) 139 mmol/L 135-145 Serum or plasma potassium measurement (moles/volume) 3.3 mmol/L 3.6-5.0 Serum or plasma chloride measurement (moles/volume) 109 mmol/L 98-107 Carbon dioxide 24 mmol/L 21-32 Serum or plasma anion gap determination (moles/volume) 6 mmol/L 5-14 Serum or plasma urea nitrogen measurement (mass/volume ) 4 mg/dL 7-18 Serum or plasma creatinine measurement (mass/volume) 0.63 mg/dL 0.60-1.30 Serum or plasma urea nitrogen/creatinine mass ratio 6 NRG Serum or plasma creatinine measurement w ith calculation of estimated glomerular filtration rate > NRG Serum or plasma glucose measurement (mass/volume) 81 mg/dL 70-105 Serum or plasma calcium measurement (mass/volume) 7.4 mg/dL 8.5-10.1 Serum or plasma phosphate measurement (m ass/volume) - 06/22/19 05:54 Serum or plasma phosphate measurement (mass/volume) 2.1 mg/dL 2.3-4.7 Magnesium - 06/22/19 05:54 Magnesium 1.6 mg/dL 1.6-2.4 Encounters ACCT No. Visit Date/Time Discharge Status Pt. Type Provider Facility Loc./Unit Complaint [id number] 01/10/2019 10:22:00 01/12/2019 09:15: 00 DIS Inpatient Mel Renteria [facility] ICU [id number] 01/10/2019 11:33:05 Document Registration [id number] 06/18/2019 22:30:00 020 15:40:00 DIS Inpatient BLANQUITA FERNANDEZ DO [facility] 4TH VOMITING [id number] 06/17/2019 16:47:00 19:26:00 DIS Outpatient TATIANA SERARNO, RUPA Alfaro [facility] ER FS VOMITING,CONGESTION,DEH YDRATION [id number] 02/09/2019 00:03:00 10:35:00 DIS Inpatient MEL RENTERIA DO, V [facility] 4TH SMALL BOWEL OBSTRUCTION [id number] 11/25/2018 19:10:00 019 13:40:00 DIS Inpatient SINCERE SERRANO, LATRICE Adams [facility] 4TH SMALL BOWEL OBSTRUCTION [id number] 04/08/2017 11:40:00 017 14:04:00 DIS Inpatient LEISA GEORGE MD [facility] IRF RESP FAILURE [id number] 04/08/2017 11:40:00 017 11:40:00 CAN Preadmit LEISA GEORGE MD, V [facility] REHAB [id number] 01/10/2019 10:22:00 Document Registration
== END 2019-06-22 15:40 | disposition home or self-care (01) | DRG 388 ==
LOC: EDUNIT# 17:13 → ER FS 17:14 → 4TH 22:30
PROVIDERS: ADMIT Surgery; ATTEND Surgery
PROC: 0D9670Z Drainage of Stomach with Drainage Device, Via Natural or Artificial Opening (ICD-10-PCS; principal; 2019-06-19)
DX: K56.699 Other intestinal obstruction unspecified as to partial versus complete obstruction (principal); J69.0 Pneumonitis due to inhalation of food and vomit; E46 Unspecified protein-calorie malnutrition; E86.0 Dehydration; J44.9 Chronic obstructive pulmonary disease, unspecified; I10 Essential (primary) hypertension; E78.5 Hyperlipidemia, unspecified; K21.9 Gastro-esophageal reflux disease without esophagitis; K59.09 Other constipation; I73.9 Peripheral vascular disease, unspecified; I71.4 Abdominal aortic aneurysm, without rupture; F10.20 Alcohol dependence, uncomplicated; R53.81 Other malaise; F41.9 Anxiety disorder, unspecified; F32.9 Major depressive disorder, single episode, unspecified; E83.42 Hypomagnesemia; E87.6 Hypokalemia; F17.290 Nicotine dependence, other tobacco product, uncomplicated; Z93.3 Colostomy status; Z86.73 Personal history of transient ischemic attack (TIA), and cerebral infarction without residual deficits; Z90.49 Acquired absence of other specified parts of digestive tract
CPT/HCPCS: 36415; 71045; 74177; 74250; 80048; 80053; 80320; 83605; 83690; 83735; 84100; 84132; 84484; 85007; 85025; 85027; 87015; 87040; 87045; 87046; 87177; 87324; 87328; 87329; 87425; 87449; 87899; 93005; 94640; 94664; 94760; 96361; 96374; 96375

== ENCOUNTER 2019-09-12 17:26 | Emergency (ER) | payer BC ==
[~2019-09-12] VITALS: Ht 167.7 cm; Wt 57.3 kg
[~2019-09-12 17:26] MED LIST changes: +ACHD5005 PO; +ACHYD1T PC; +ACHYD1T PO; +DIVA250T2 PO; +FENT1PAT8 TD; -HYDR-3812 PO; -HYDR-3820 PC; -HYDR-3820 PO; +METO-310 PO; +MULT1CAP27 PO
--- OUTSIDE RECORDS SUMMARY | 2019-09-12 17:32 | XMS REPORT | Continuity of Care Document ---
Author Organization Unknown Address Unknown Phone Unavailable Allergies Active Description Code Type Severity Reaction Onset Reported/Identified Relationship to Patient Clinical Status Yes CODEINE SULFATE U NKNOWN UNKNOWN Yes PENICILLINS UNKNOWN UNKNOWN Yes SULFAMETHOXAZOLE-TRIMETHOPRIM UNKNOWN UNKNOWN Yes PCn PCn Moderate N/A 04/08/2017 Yes codeine [id number] Drug Allergy Unknown N/A 04/08/2017 Yes Sulfa (Sulfonamide Antibiotics) [id number] Drug Allergy Unknown N/A 017 Yes acetaminophen [id number] Eliazar g Allergy Moderate HIVES 04/18/2017 Yes oxycodone [id number] Drug Allergy Moderate HIVES 04/18/2017 Yes Penicillins [id number] Drug Aller gy Unknown N/A 02/10/2019 Medications [...] PRESSURE ULCER OF [place]CR[place] REGION, UNSTAGE 05/01/2017 LIESA GEORGE MD E Ot L89.2 11 PRESSURE [...] MD E Ot Z93.3 COLOSTOMY STATUS 05/04/2017 ELISA GEORGE MD E Ot F10.1 0 ALCOHOL [...] ALLERGY STATUS TO NARCOTIC AGENT STATUS 02/11/2019 MEL RENTERIA DO Ot Z93.3 COLOSTOMY STATUS 06/17/2019 TATIANA SERRANO, RUPA Alfaro Ot D64.9 ANEMIA, UNSPECIFIED 06/17/2019 TATIANA SERRANO, RUPA Alfaro Ot E86.0 DEHYDRATION 06/17/2019 TATIANA SERRANO, RUPA Alfaro Ot F32.9 MAJOR DEPRESSIVE DISORDER, SINGLE EPISOD 06/17/2019 TATIANA SERRANO, RUPA Alfaro Ot F41.9 ANXIETY DISORDER, UNSPECIFIED 06/17/2019 RUPA SIMPSON MD Ot K21.9 GASTRO-ESOPHAGEAL REFLUX DISEASE WITHOUT 06/17/2019 TATIANA SERRANO, RUPA Alfaro Ot R11.2 NAUSEA WITH VOMITING, UNSPECIFIED 06/17/2019 TATIANA SERRANO, RUPA Alfaro Ot Z82.4 9 FAMILY HX OF ISCHEM HEART DIS AND OTH DI 06/17/2019 RUPA SIMPSON MD Ot Z88.0 ALLERGY STATUS TO PENICILLIN 06/17/2019 TATIANA SERRANO, RUPA Alfaro Ot Z88.2 ALLERGY STATUS TO SULFONAMIDES STATUS 06/17/2019 RUPA SIMPSON MD Ot Z88.5 ALLERGY STATUS TO NARCOTIC AGENT STATUS 06/17/2019 TATIANA SERRANO, RUPA Alfaro Ot Z93.3 COLOSTOMY STATUS 06/21/2019 BLANQUITA FERNANDEZ DO Ot E46 UNSPECIFIED PROTEIN-CALORIE MALNUTRITION 06/21/2019 BLANQUITA FERNANDEZ DO Ot E78. 5 HYPERLIPIDEMIA, UNSPECIFIED 06/21/2019 BLANQUITA FERNANDEZ DO Ot E83. 42 HYPOMAGNESEMIA 06/21/2019 BLANQUITA FERNANDEZ DO Ot E86. 0 DEHYDRATION 06/21/2019 BLANQUITA FERNANDEZ DO Ot E87. 6 HYPOKALEMIA 06/21/2019 BLANQUITA FERNANDEZ DO Ot F10. 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 9 MAJOR DEPRESSIVE DISORDER, SINGLE EPISOD 06/21/2019 BLANQUITA FERNANDEZ DO Ot F41. 9 ANXIETY DISORDER, UNSPECIFIED 06/21/2019 BLANQUITA FERNANDEZ DO Ot I10 ESSENTIAL (PRIMARY) HYPERTENSION 06/21/2019 BLANQUITA FERNANDEZ DO Ot I71. 4 ABDOMINAL AORTIC ANEURYSM, WITHOUT RUPTU 06/21/2019 BLANQUITA FERNANDEZ DO Ot I73. 9 PERIPHERAL VASCULAR DISEASE, UNSPECIFIED 06/21/2019 FERNANDEZ BLANQUITA LACKEY Ot J44. 9 CHRONIC OBSTRUCTIVE PULMONARY DISEASE, U 06/21/2019 FERNANDEZ BLANQUITA LACKEY Ot J69. 0 PNEUMONITIS DUE TO INHALATION OF FOOD AN 06/21/2019 [facility] K21. 9 GASTRO-ESOPHAGEAL REFLUX DISEASE WITHOUT 06/21/2019 [facility] Ot K56.699 OTHER INTESTNL OBST UNSP TO PARTIAL V 06/21/2019 FERNANDEZ DOBLANQUITA Ot K56. 7 ILEUS, UNSPECIFIED 06/21/2019 [facility] Ot K59. 09 OTHER CONSTIPATION 06/21/2019 [facility] Ot R53. 81 OTHER MALAISE 06/21/2019 [facility] Ot Z86. 73 PRSNL HX OF TIA (TIA), AND CEREB INFRC W 06/21/2019 [facility] Ot Z90. 49 ACQUIRED ABSENCE OF OTHER SPECIFIED PART 06/21/2019 [facility] Ot Z93. 3 COLOSTOMY STATUS 06/21/2019 RUPA SIMPSON MD, Ot D64.9 ANEMIA, UNSPECIFIED 06/21/2019 RUPA SIMPSON MD, Ot E86.0 DEHYDRATION 06/21/2019 RUPA SIMPSON MD Ot F32.9 MAJOR DEPRESSIVE DISORDER, SINGLE EPISOD 06/21/2019 RUPA SIMPSON MD, Ot F41.9 ANXIETY DISORDER, UNSPECIFIED 06/21/2019 RUPA SIMPSON MD, Ot K21.9 GASTRO-ESOPHAGEAL REFLUX DISEASE WITHOUT 06/21/2019 RUPA SIMPSON MD Ot R11.2 NAUSEA WITH VOMITING, UNSPECIFIED 06/21/2019 RUPA SIMPSON MD, Ot Z82.4 9 FAMILY HX OF ISCHEM HEART DIS AND OTH DI 06/21/2019 RUPA SIMPSON MD, Ot Z88.0 ALLERGY STATUS TO PENICILLIN 06/21/2019 RUPA SIMPSON MD Ot Z88.2 ALLERGY STATUS TO SULFONAMIDES STATUS 06/21/2019 RUPA SIMPSON MD, Ot Z88.5 ALLERGY STATUS TO NARCOTIC AGENT STATUS 06/21/2019 RUPA SIMPSON MD, Ot Z93.3 COLOSTOMY STATUS 06/22/2019 [facility] Ot E46 UNSPECIFIED PROTEIN-CALORIE MALNUTRITION 06/22/2019 [facility] Ot E78. 5 HYPERLIPIDEMIA, UNSPECIFIED 06/22/2019 [facility] Ot E83. 42 HYPOMAGNESEMIA 06/22/2019 [facility] Ot E86. 0 DEHYDRATION 06/22/2019 [facility] Ot E87. 6 HYPOKALEMIA 06/22/2019 [facility] Ot F10. 20 ALCOHOL DEPENDENCE, UNCOMPLICATED 06/22/2019 [facility] Ot F17.290 NICOTINE DEPENDENCE, OTHER TOBACCO PRODU 06/22/2019 [facility] Ot F32. 9 MAJOR DEPRESSIVE DISORDER, SINGLE EPISOD 06/22/2019 [facility] Ot F41. 9 ANXIETY DISORDER, UNSPECIFIED 06/22/2019 [facility] Ot I10 ESSENTIAL (PRIMARY) HYPERTENSION 06/22/2019 [facility] Ot I71. 4 ABDOMINAL AORTIC ANEURYSM, WITHOUT RUPTU 06/22/2019 [facility] Ot I73. 9 PERIPHERAL VASCULAR DISEASE, UNSPECIFIED 06/22/2019 [facility] Ot J44. 9 CHRONIC OBSTRUCTIVE PULMONARY DISEASE, U 06/22/2019 FERNANDEZ DOBLANQUITA Ot J69. 0 PNEUMONITIS DUE TO INHALATION OF FOOD AN 06/22/2019 [facility] Ot K21. 9 GASTRO-ESOPHAGEAL REFLUX DISEASE WITHOUT 06/22/2019 [facility] Ot K56.699 OTHER INTESTNL OBST UNSP TO PARTIAL V 06/22/2019 [facility] Ot K56. 7 ILEUS, UNSPECIFIED 06/22/2019 [facility] Ot K59. 09 OTHER CONSTIPATION 06/22/2019 [facility] Ot R53. 81 OTHER MALAISE 06/22/2019 [facility] Ot Z86. 73 PRSNL HX OF TIA (TIA), AND CEREB INFRC W 06/22/2019 [facility] Ot Z90. 49 ACQUIRED ABSENCE OF OTHER SPECIFIED PART 06/22/2019 [facility] Ot Z93. 3 COLOSTOMY STATUS 06/23/2019 RUPA [...] Code Description Performed By Per formed On [id number] DR VASQUEZ OF STOMACH WITH DRAINAGE DEVICE 11/26/[id number] VASQUEZ OF STOMACH WITH DRAINAGE DEVICE 02/08/[id number] VASQUEZ OF STOMACH WITH DRAINAGE DEVICE [...] Blood hematocrit (volume fraction) 25 % 40-54 [id number] - 04/14/17 08:11 [id number] SPECIMEN AVAILABLE [facility] Stool occult blood screen - 04/14/17 09: [...] culture - 04/23/17 10:01 Bacterial urine culture [id number] NRG COLONY COUNT >100,000/ML NRG FTX;REPORTABLE SENSITIVITY [...] Urine-Bilirubin 2+ Negative Urine-Blood Trace-intact Negative Urine-Color [place] (Color May Affect Dipstick Res ults) Colorless-Lt. Yellow Urine-Glucose Negative Negative Urine-Ketones 1+ Negative Urine-Leukocytes Negative Negative Urine-Mucus 2+ Urine-Nitrite Negative Negative Urine-Other Urine Saved if Culture Need ed (48hrs from time of collection) Urine-pH 5.5 5-8.5 Urine-Protein 2+ Negative Urine-RBC 0-2/HPF Urine-Specific [place] 1.020 1.000-1 .030 Urine-WBC Negative Urobilinogen 1.0 E.U./dL 0.2-1.0 MRSA Screen - 01/10/19 20:37 FINAL CULTURE RESULTS MRSA Negative Nasal Culture MEDIA PLATED Setup at 21:03 on 01/10/2019 BMP - 01/11/19 05:34 Anion Gap 16 6-14 [...] INFLUENZA A AND B ANTIGENS BY IA NR Complete blood count (CBC) [...] 06/06 17:20 Blood monocytes/100 leukocytes 6 % NR Manual blood segmented neutrophils/100 leukocytes 67 % NRG Blood band neutrophils/100 leukocytes 5 % NRG Manual blood lymphocytes/100 leukocytes 20 % NRG Manual eosinophils/100 leukocytes in nose 1 % NRG Manual blood basophils/100 leukocytes 0 % NR Manual blood lymphocytes variant/100 leukocytes 1 % NR Blood erythrocyte morphology finding identification NORMAL [facility] Stool bacteria identification by culture - 06/18/19 17:31 Stool bacteria identification by culture N2 [facility] Stool Rotavirus antigen detection - 06/06 17:31 ROTAVIRUS RESULT NEGATIVE BY IA [facility] Complete blood count (CBC) with automate d [...] NRG Blood erythrocyte morphology finding identification NORMAL NR Bacterial blood culture - 06/18/19 17:45 Bacterial blood culture NG [facility] C DIFFICILE AG + TOXIN A/B. - 06/18/19 1 7:50 RESULTS NEGATIVE FOR ANTIGEN AND TOXIN A/B [facility] [id number] - 06/18/19 17:50 Bacterial blood culture - 06/18/19 19:15 Bacterial blood culture NG [facility] Complete blood count (CBC) with automate d [...] 107 mmol/L 98-107 Carbon dioxide 25 mmol/L 21-32 [...] 111 mmol/L 98-107 Carbon dioxide 23 mmol/L -32 Serum or plasma anion gap determination (moles/volume) [...] 109 mmol/L 98-107 Carbon dioxide 24 mmol/L -32 Serum or plasma anion gap determination (moles/volume) [...] Status Pt. Type Provider Facility Loc./Unit Complaint [id number] 01/10/2019 10:22:00 01/12/2019 09:15: 00 DIS Inpatient Mel Renteria [facility] enter ICU [id number] 01/10/2019 11:33:05 Document Registration [id number] 06/18/2019 22:30:00 020 15:40:00 DIS Inpatient BLANQUITA FERNANDEZ DO [facility] 4TH VOMITING [id number] 06/17/2019 16:47:00 19:26:00 DIS Emergency RUPA SIMPSON MD [facility] ER FS VOMITING,CONGESTION,DEH YDRATION [id number] 02/09/2019 00:03:00 019 10:35:00 DIS Inpatient MEL RENTERIA DO, [facility] 4TH SMALL BOWEL OBSTRUCTION [id number] 11/25/2018 19:10:00 019 13:40:00 DIS Inpatient LATRICE POST MD [facility] 4TH SMALL BOWEL OBSTRUCTION [id number] 04/08/2017 11:40:00 017 14:04:00 DIS Inpatient LEISA GEORGE MD [facility] IRF RESP FAILURE [id number] 04/08/2017 11:40:00 017 11:40:00 CAN Preadmit LEISA GEORGE MD [facility] REHAB [id number] 09/12/2019 17:27:[address] Emergency BOYER JOJO LACKEY [facility] ER FS NAUSEA,VOMITING [id number] 01/10/2019 10:22:00 Document Registration
--- NOTE | 2019-09-12 17:35 | ED GI ---
General Stated Complaint: NAUSEA,VOMITING History of Present Illness Date Seen by Provider: Sep 12, 2019 Time Seen by Provider: 17:31 Initial Comments 63-year-old male presents with a week of nausea, vomiting. He states that he is vomiting every 5 minutes. He's had Zofran twice a day and hasn't helped. Patient has an ostomy in his left lower quadrant because he "states his stomach "working" patient reports that he used to drink "like a fish" but stopped 2 years ago when he had problems with his stomach. He smokes marijuana but hasn't had any in 6 months. He denies any fever or chills. He does have a history of COPD but denies any increased cough or shortness of breath. He denies any abdominal pain. He reports he still making stool and passing gas into his ostomy tube. Allergies and Home Medications Allergies Coded Allergies: oxycodone (Verified Allergy, Intermediate, HIVES, 04/18/17) Penicillins (Unverified Allergy, Unknown, 02/10/19) Sulfa (Sulfonamide Antibiotics) (Verified Allergy, Unknown, 04/08/17) codeine (Verified Allergy, Unknown, 04/08/17) Home Medications Citalopram Hydrobromide 20 Mg Tablet, 20 MG PO BID, (Reported) Divalproex Sodium 250 Mg Tablet.dr, 250 MG PO BID, (Reported) Fentanyl 1 Each Patch.td72, 25 MCG TD Q72H, (Reported) LAST FILLED #10 (PLEASE SEE NOTE) PT'S SAYS PATCH WAS APPLIED ON 06-17-2019 BUT FELT LIKE IT WAS CAUSING MORE ISSUES SO SHE REMOVED IT Iron Polysaccharide Complex 150 Mg Capsule, 150 MG PO DAILY, (Reported) Lactulose 10 Gm/15 Ml Solution, 30 ML PO BID PRN for CONSTIPATION-3RD LINE, (Reported) Magnesium Oxide 400 Mg Tablet, 400 MG PO 1200, (Reported) Meloxicam 7.5 Mg Tablet, 7.5 MG PO DAILY PRN for ARTHRITIS PAIN, (Reported) Metoclopramide HCl 10 Mg Tablet, 10 MG PO BIDAC, (Reported) Mirtazapine 15 Mg Tablet, 15 MG PO HS, (Reported) Morphine Sulfate 30 Mg Tablet.er, 30 MG PO BID, (Reported) TAKE WITH 15 MG MORPHINE SULFATE ER TO EQUAL 45 MG Morphine Sulfate 15 Mg Tablet.er, 15 MG PO BID, (Reported) TAKE WITH 30 MG MORPHINE SULFATE ER TO EQUAL 45 MG Multivitamin 1 Each Capsule, 1 EACH PO DAILY, (Reported) Ondansetron 4 Mg Tab.rapdis, 4 MG PO Q8H PRN for NAUSEA/VOMITING-1ST LINE, (Reported) Pantoprazole Sodium 40 Mg Tablet.dr, 40 MG PO DAILY, (Reported) LAST FILLED 04-11-2019 #30 Patient Home Medication List Home Medication List Reviewed: Yes Review of Systems Review of Systems Constitutional: No chills, No fever Respiratory: See HPI; Denies Shortness of Air Cardiovascular: Denies Chest Pain, Denies Edema Gastrointestinal: Denies Abdominal Pain, Denies Constipated, Denies Diarrhea; Nausea, Vomiting Musculoskeletal: no symptoms reported Skin: no symptoms reported Psychiatric/Neurological: Anxiety Past Okkbkpv-Yrnmvi-Ctsvqr Hx Past Med/Social Hx: Reviewed Nursing Past Med/Soc Hx Patient Social History Type Used: Cigarettes, Electronic/Vapor 2nd Hand Smoke Exposure: No Recent Hopitalizations: No Immunizations Up To Date Tetanus Booster (TDap): Unknown Date of Influenza Vaccine: Feb 08, 2019 Seasonal Allergies Seasonal Allergies: No Past Medical History Surgeries: Yes (AAA rupture repair, colostomy, wound debriedment, femoral emboloectomy) Appendectomy, Bowel Surgery Respiratory: Yes COPD Cardiac: Yes (AAA - HX of rupture) Aneurysm Neurological: Yes (Encephalopathy, CVD) Genitourinary: Yes (Retention hx) Gastrointestinal: Yes (Colostomy d/t ischemic colitis) Gastroesophageal Reflux, Obstructive Bowel, Chronic Constipation Musculoskeletal: Yes (Debility, extreme weakness) Endocrine: No HEENT: No Cancer: No Psychosocial: Yes Anxiety, Depression Integumentary: Yes (abdomen, sacrum, HX stage IV) Recent Skin Changes Blood Disorders: Yes (Chronic Anemia) Family Medical History Cardiovascular disease 19 FATHER Completed stroke 19 FATHER Diabetes mellitus 19 MOTHER Glaucoma 19 MOTHER Hypertension 19 FATHER 19 MOTHER G8 BROTHER Myocardial infarction 19 FATHER No Pertinent Family Hx Physical Exam Vital Signs Vital Signs - First Documented 09/12/19 17:26 Temp 36.7 Pulse 120 Resp 20 B/P (MAP) 115/92 (100) Pulse Ox 94 O2 Delivery Room Air Capillary Refill : Height/Weight/BMI Height: 5'6.00" Weight: 164lbs. 0.0oz. 74.516926ax; 21.97 BMI Method:Stated General Appearance: cachetic HEENT: PERRL/EOMI, normal ENT inspection Respiratory: chest non-tender, lungs clear Cardiovascular: normal peripheral pulses, regular rate, rhythm Gastrointestinal: soft; No distended, No tenderness; other (ostomy was stool in the left lower quadrant) Extremities: normal range of motion Neurologic/Psychiatric: alert, normal mood/affect, oriented x 3 Skin: normal color, warm/dry Focused Exam Lactate Level 09/12/19 17:38: Lactic Acid Level 1.56 Lactic Acid Level Laboratory Tests Test 09/12/19 17:38 Lactic Acid Level 1.56 MMOL/L (0.50-2.00) Progress/Results/Core Measures Results/Orders Lab Results Laboratory Tests Test 09/12/19 17:38 Range/Units White Blood Count 15.8 H 4.3-11.0 10^3/uL Red Blood Count 4.92 4.35-5.85 10^6/uL Hemoglobin 14.6 13.3-17.7 G/DL Hematocrit 43 40-54 % Mean Corpuscular Volume 87 80-99 FL Mean Corpuscular Hemoglobin 30 25-34 PG Mean Corpuscular Hemoglobin Concent 34 32-36 G/DL Red Cell Distribution Width 15.3 H 10.0-14.5 % Platelet Count 466 H 130-400 10^3/uL Mean Platelet Volume 9.7 7.4-10.4 FL Neutrophils (%) (Auto) 72 42-75 % Lymphocytes (%) (Auto) 20 12-44 % Monocytes (%) (Auto) 7 0-12 % Eosinophils (%) (Auto) 1 0-10 % Basophils (%) (Auto) 0 0-10 % Neutrophils # (Auto) 11.4 H 1.8-7.8 X 10^3 Lymphocytes # (Auto) 3.2 1.0-4.0 X 10^3 Monocytes # (Auto) 1.1 H 0.0-1.0 X 10^3 Eosinophils # (Auto) 0.1 0.0-0.3 10^3/uL Basophils # (Auto) 0.1 0.0-0.1 10^3/uL Neutrophils % (Manual) 72 % Lymphocytes % (Manual) 17 % Monocytes % (Manual) 6 % Eosinophils % (Manual) 0 % Basophils % (Manual) 1 % Band Neutrophils 4 % Blood Morphology Comment NORMAL Sodium Level 137 135-145 MMOL/L Potassium Level 3.5 L 3.6-5.0 MMOL/L Chloride Level 86 L 98-107 MMOL/L Carbon Dioxide Level 29 21-32 MMOL/L Anion Gap 22 H 5-14 MMOL/L Blood Urea Nitrogen 15 7-18 MG/DL Creatinine 0.89 0.60-1.30 MG/DL Estimat Glomerular Filtration Rate > 60 BUN/Creatinine Ratio 17 Glucose Level 138 H 70-105 MG/DL Lactic Acid Level 1.56 0.50-2.00 MMOL/L Calcium Level 7.5 L 8.5-10.1 MG/DL Corrected Calcium 7.7 L 8.5-10.1 MG/DL Total Bilirubin 0.2 0.1-1.0 MG/DL Aspartate Amino Transf (AST/SGOT) 35 H 5-34 U/L Alanine Aminotransferase (ALT/SGPT) 43 0-55 U/L Alkaline Phosphatase 73 40-136 U/L Total Protein 7.4 6.4-8.2 GM/DL Albumin 3.7 3.2-4.5 GM/DL Lipase 104 H 8-78 U/L My Orders Orders - BOYER,JOJO L DO Ondansetron Injection (Zofran Injectio (09/12/19 17:45) Ns Iv 1000 Ml (Sodium Chloride 0.9%) (09/12/19 17:36) Ed Iv/Invasive Line Start (09/12/19 17:36) Cbc With Automated Diff (09/12/19 17:36) Comprehensive Metabolic Panel (09/12/19 17:36) Lactic Acid Analyzer (09/12/19 17:36) Lipase (09/12/19 17:36) Ua Culture If Indicated (09/12/19 17:36) Diphenhydramine Injection (Benadryl Inje (09/12/19 17:45) Acute Abd Series (09/12/19 17:38) Manual Differential (09/12/19 17:38) Medications Given in ED Current Medications Medications Dose Ordered Sig/Yanira Route Start Time Stop Time Status Last Admin Dose Admin Diphenhydramine HCl 50 mg ONCE ONCE IVP 09/12/19 17:45 09/12/19 17:46 DC 09/12/19 17:46 50 MG Ondansetron HCl 4 mg ONCE ONCE IVP 09/12/19 17:45 09/12/19 17:46 DC 09/12/19 17:46 4 MG Vital Signs/I&O 09/12/19 17:26 Temp 36.7 Pulse 120 Resp 20 B/P (MAP) 115/92 (100) Pulse Ox 94 O2 Delivery Room Air Progress Progress Note : Time: 19:03 Progress Note Patient is a comfort care patient. So no aggressive measures. X-ray showed an ileus versus small bowel obstruction however that is improved compared to his previous x-ray. Patient did not vomit the whole time he was here in the ER. He was resting comfortably. Patient was mildly dehydrated and was given a liter of fluids. Discussed with and patient that he should follow up with a primary care provider and consider Suboxone since he is on significant amount of pain medication is likely cause of his recurrent ileus Diagnostic Imaging Comments [facility] [place], [place] NAME: [facility] REC#: [id number] PT STATUS: REG ER : 1955 PHYSICIAN: JOJO BOYER DO ADMIT DATE: 09/12/19/ER FS Draft Date of Exam:09/12/19 ACUTE ABD SERIES Clinical Indication: Patient with nausea and vomiting x1 week. Patient has previous history of small bowel obstruction. Colostomy present. EXAMS: X-ray of the chest PA view and x-ray of the abdomen supine and upright views. COMPARISONS: X-ray of the abdomen dated 06/20/2019. Chest x-ray dated 06/18/2019. FINDINGS: CHEST: Stable appearance of the chest with slight rightward shift of the mediastinal structures. There is improved aeration of the right lung base with residual mild bibasilar atelectasis versus scarring. There is no interval lung infiltrate. Stable slight elevation right hemidiaphragm. There is no pleural effusion or pneumothorax. Pulmonary vasculature and mediastinal structures are unremarkable. Cardiac silhouette is within normal limits. Bones show no significant interval abnormality. ABDOMEN: Ostomy is again seen overlying the left mid abdominal region. There is again noted dilated loop of small bowel overlying the mid to upper abdominal region which is slightly decreased in size compared to a prior study. This bowel measures roughly 7.5 cm in greatest width. The remainder of the intestines are not dilated. Air-filled loops of colon are noted. There is no intra-abdominal free air. There are multiple air-fluid levels seen within the region of the mid and lower abdominal regions and also some areas involving the right colon. IMPRESSION: 1: Slight improved aeration of the right lung base. Otherwise stable chest findings with no interval acute chest process. 2: There is air dilated loop of small bowel overlying the mid abdomen again noted. It appears this finding may be related to ileus or partial obstruction. This area of small bowel is slightly less distended than the prior study. There are nonspecific air-fluid levels involving the small bowel and colon which are not significantly dilated as visualized. 3: Again noted is an ostomy in the left side of the abdomen. 4: There is no intra-abdominal free air. Departure Impression Primary Impression: Nausea and vomiting Qualified Codes: R11.2 - Nausea with vomiting, unspecified Additional Impression: Ileus, unspecified Disposition: 01 HOME, SELF-CARE Condition: Stable Departure-Patient Inst. Referrals: LESA URBINA MD (PCP/Family) Primary Care Physician Patient Instructions: Nausea and Vomiting, Adult Add. Discharge Instructions: Emergency department focuses on treating and ruling out life-threatening dis eases. Whenever possible, a diagnosis is given. However, most patients are given an impression based on their history, physical exam, and workup during your brief time in the ER. Information about probable diagnosis and other educational material has been provided. Please take the time to read and understand this information. It is very important that you follow up with a physician as discussed during the visit today. Failure to adhere to your follow-up instructions may lead to severe disability, injury, or so please make sure to keep your appointments or obtain one as requested. Please keep in mind the emergency department is not designed to your primary care or "family doctor" and nonurgent issues are best evaluated by an outpatient physician Scripts Promethazine HCl (Promethazine Tablet) 25 Mg Tablet 25 MG PO Q6H PRN for NAUSEA/VOMITING, #10 TAB Prov: JOJO BOYER DO 09/12/19 JOJO BOYER DO Sep 12, 2019 17:34
[2019-09-12] MEDS ORDERED: NS IV 1000 ML 1,000 ML IV STA (17:36)
[2019-09-12] MEDS ORDERED: diphenhydrAMINE 50 MG/ML INJ (BENADRYL) IVP ONE (17:45)
[2019-09-12] MEDS ORDERED: ONDANSETRON 4 MG/2 ML (SDV) Z0FRAN IVP ONE (17:45)
[2019-09-12 17:53] LABS: BASOPHILS # (AUTO) 0.1 10^3/uL (0.0-0.1); BASOPHILS % (AUTO) 0 % (0-10); EOSINOPHILS # (AUTO) 0.1 10^3/uL (0.0-0.3); EOSINOPHILS % (AUTO) 1 % (0-10); HEMATOCRIT 43 % (40-54); HEMOGLOBIN 14.6 G/DL (13.3-17.7); LYMPHOCYTES # (AUTO) 3.2 X 10^3 (1.0-4.0); LYMPHOCYTES % (AUTO) 20 % (12-44); MEAN CORPUSCULAR HEMOGLOBIN 30 PG (25-34); MEAN CORPUSCULAR HGB CONC 34 G/DL (32-36); MEAN CORPUSCULAR VOLUME 87 FL (80-99); MEAN PLATELET VOLUME 9.7 FL (7.4-10.4); MONOCYTES # (AUTO) 1.1 X 10^3 (0.0-1.0); MONOCYTES % (AUTO) 7 % (0-12); NEUTROPHILS # (AUTO) 11.4 X 10^3 (1.8-7.8); NEUTROPHILS % (AUTO) 72 % (42-75); PLATELET COUNT 466 10^3/uL (130-400); RED CELL DISTRIBUTION WIDTH 15.3 % (10.0-14.5); WHITE BLOOD COUNT 15.8 10^3/uL (4.3-11.0)
[2019-09-12 18:10] LABS: CHLORIDE 86 MMOL/L (98-107); POTASSIUM 3.5 MMOL/L (3.6-5.0); SODIUM 137 MMOL/L (135-145)
[2019-09-12 18:11] LABS: ALANINE AMINOTRANSFERASE 43 U/L (0-55); ALBUMIN 3.7 GM/DL (3.2-4.5); ALKALINE PHOSPHATASE 73 U/L (40-136); BILIRUBIN,TOTAL 0.2 MG/DL (0.1-1.0); BUN/CREATININE RATIO 17; CALCIUM 7.5 MG/DL (8.5-10.1); CARBON DIOXIDE 29 MMOL/L (21-32); CREATININE SERUM 0.89 MG/DL (0.60-1.30); GFR ESTIMATED > 60; GLUCOSE 138 MG/DL (70-105); LIPASE 104 U/L (8-78); TOTAL PROTEIN 7.4 GM/DL (6.4-8.2)
--- NOTE | 2019-09-12 18:15 | NUR ---
re-enters the ER waiting area and wants update. Nurse to window explaining all test ordered are pending. The patient is more comfortable after IV start with nausea meds and fluids.
[2019-09-12 18:21] LABS: BAND NEUTROPHILS 4 %; BASOPHILS % (MANUAL) 1 %; EOSINOPHILS % (MANUAL) 0 %; LYMPHOCYTES % (MANUAL) 17 %; MONOCYTES % (MANUAL) 6 %; NEUTROPHILS % (MANUAL) 72 %; RBC MORPH NORMAL
--- NOTE | 2019-09-12 18:25 | NUR ---
Patient continues to accidentally knowck off SaO2 probe, switched to the bandaid tape style. Pt declines request for him to try to void in urinal for UA. Pt states, "I do not have to."
--- NOTE | 2019-09-12 18:30 | Diagnostic Imaging Report ---
Clinical Indication: Patient with nausea and vomiting x1 week. Patient has previous history of small bowel obstruction. Colostomy present. EXAMS: X-ray of the chest PA view and x-ray of the abdomen supine and upright views. COMPARISONS: X-ray of the abdomen dated 06/20/2019. Chest x-ray dated 06/18/2019. FINDINGS: CHEST: Stable appearance of the chest with slight rightward shift of the mediastinal structures. There is improved aeration of the right lung base with residual mild bibasilar atelectasis versus scarring. There is no interval lung infiltrate. Stable slight elevation right hemidiaphragm. There is no pleural effusion or pneumothorax. Pulmonary vasculature and mediastinal structures are unremarkable. Cardiac silhouette is within normal limits. Bones show no significant interval abnormality. ABDOMEN: Ostomy is again seen overlying the left mid abdominal region. There is again noted dilated loop of small bowel overlying the mid to upper abdominal region which is slightly decreased in size compared to a prior study. This bowel measures roughly 7.5 cm in greatest width. The remainder of the intestines are not dilated. Air-filled loops of colon are noted. There is no intra-abdominal free air. There are multiple air-fluid levels seen within the region of the mid and lower abdominal regions and also some areas involving the right colon. IMPRESSION: 1: Slight improved aeration of the right lung base. Otherwise stable chest findings with no interval acute chest process. 2: There is air dilated loop of small bowel overlying the mid abdomen again noted. It appears this finding may be related to ileus or partial obstruction. This area of small bowel is slightly less distended than the prior study. There are nonspecific air-fluid levels involving the small bowel and colon which are not significantly dilated as visualized. 3: Again noted is an ostomy in the left side of the abdomen. 4: There is no intra-abdominal free air. Dictated by: Dictated on workstation # [id number]
--- NOTE | 2019-09-12 18:50 | NUR ---
re-entered ED to request update. Phone number had been provided to to call ER. Dr went to waiting rm to discuss patient is wanting to go home and he feels better. Improvement of last documented ileus has improved. requests to have staff place patient in WC and deliver to her car.
[2019-09-12] MEDS ORDERED: PROM25TA14 PO (19:06)
[2019-09-12 19:09] VITALS: BP 102/81
== END 2019-09-12 19:16 | disposition home or self-care (01) ==
LOC: EDUNIT# 17:26 → ER FS 17:27
DX: K56.7 Ileus, unspecified (principal); K21.9 Gastro-esophageal reflux disease without esophagitis; F41.9 Anxiety disorder, unspecified; F32.9 Major depressive disorder, single episode, unspecified; Z88.5 Allergy status to narcotic agent; Z88.0 Allergy status to penicillin; Z88.2 Allergy status to sulfonamides; Z82.49 Family history of ischemic heart disease and other diseases of the circulatory system
CPT/HCPCS: 36415; 74022; 80053; 83605; 83690; 85007; 85027